=== PATIENT | male | born 1935 | race Caucasian/White ===

== ENCOUNTER 2021-10-16 10:06 | Emergency (ER) | payer MEDICARE, SELFPAY ==
[2021-10-16] VITALS (30 sets, daily range): BP systolic 124–154; BP diastolic 64–104; PULSE 76–87; RESP 8–36; TEMP 36.6; O2SAT 92–100
--- NOTE | ~2021-10-16 | CT_ITS ---
EXAMINATION: CT abdomen pelvis w con DATE: 10/16/2021 12:50 INDICATION: No bowel movements for 2 weeks. Abdomen pain. TECHNIQUE: Computed tomography (CT) of the abdomen and pelvis was performed with 75 cc Omnipaque 350 intravenous contrast. The dose-length product was 448.47 mGy-cm. Automated exposure control and itera tive reconstruction technique were employed. COMPARISON: None. FINDINGS: No there are interstitial changes peripherally in the lung bases, likely chronic. Heart siz e normal. There are small hiatal hernia. There are calcified granulomas of the spleen. There are chol ecystectomy clips. Fatty infiltration of the liver. The pancreas, adrenal glands and right kidney are unremarkable. There is a small subcentimeter hypodensity of the left kidney, most likely benign cyst s. There are nonobstructing left renal stones, largest measuring 3 mm. Bladder is unremarkable. There is a penile prosthesis with reservoir in the right inguinal region. Moderate colonic fecal loading. No evidence for bowel obstruction. Colonic diverticulosis without evidence for diverticulitis. Normal appendix. Enlarged prostate gland. There is moderate osteoarthritis of the hips. There is levoscolio sis. Moderate lumbar spondylosis. IMPRESSION: 1. No evidence for bowel obstruction. 2: Nonobstructing left nephrolithiasis. Reviewed, dictated and finalized at location B.
[2021-10-16 10:42] LABS: Basophils Percent Auto 0.3 % (0.2-1.2); Eosinophils Absolute Auto 0.1 K/mm3 (0-0.3); Eosinophils Percent Auto 1.4 % (0-4.4); Hematocrit 43.2 % (42.0-52.0); Hemoglobin 14.1 g/dL (14.0-18.0); Immature Granulocyte Absolute 0.07 K/mm3 (0.00-0.031); Immature Granulocyte Percent A 1.2 % (0-0.5); Lymphocytes Absolute Auto 1.06 K/mm3 (0.9-3.2); Lymphocytes Percent Auto 18.5 % (18.3-44.2); Mean Corpuscular HGB Conc 32.6 g/dl (32-36); Mean Corpuscular Hemoglobin 33.5 pg (26-34); Mean Corpuscular Volume 102.6 fl (80-100); Mean Platelet Volume 9.1 fl (7.4-10.4); Monocytes Absolute Auto 0.8 K/mm3 (0.1-0.6); Monocytes Percent Auto 14.6 % (2.6-8.5); Neutrophils Absolute Auto 3.7 K/mm3 (1.3-6.7); Platelet Count Result 210 k/mm3 (150-375); Red Blood Count 4.21 M/mm3 (4.6-6.20); Red Cell Distribution Width 13.9 % (11.5-14.5); White Blood Count 5.7 K/mm3 (4.5-10.0)
[2021-10-16 10:57] LABS: Alanine Aminotransferase 19 U/L (6-50); Alkaline Phosphatase 100 U/L (38-126); Anion Gap 8 mmol/L (8-16); Aspartate Amino Transferase 36 U/L (17-59); Bilirubin,Total 0.6 mg/dL (0.2-1.3); Blood Urea Nitrogen 20 mg/dL (9-20); Calcium 8.7 mg/dL (8.4-10.2); Carbon Dioxide 28 mmol/L (22-30); Chloride 106 mmol/L (98-107); Estimated CRCL calculation 43 ml/min; Estimated Glomerular Filt Rate 58; Glucose 78 mg/dL (65-110); Lipase 23 U/L (23-300); Potassium 4.3 mmol/L (3.4-5.0); Sodium 142 mmol/L (137-145)
[2021-10-16 12:33] LABS: Add Urine Microscopic? YES; Appearance Urine Clear (Clear); Bilirubin Urine 1+ (Negative); Blood Urine Negative (Negative); Color Urine Yellow (Yellow); Glucose Urine UA Negative (Negative); Ketones Urine 4+ mg/dL (Negative); Leukocyte Esterase Ur Negative LEU/UL (Negative); Nitrate Urine Negative (Negative); Protein Urine Negative (Negative); Specific Grav Ur >= 1.030 (1.001-1.035); Urobilinogen Urine 0.2 mg/dL (<2.0); pH Urine 5.5 (5.0-9.0)
[2021-10-16] MEDS: LACTATED RINGERS 1,000 ML 999 ML IV CONT (12:34)
[2021-10-16 12:38] LABS: Mucus Urine Few /lpf; RBC Urine 0-2 /hpf (0-2); WBC Urine 0-3 /hpf
--- NOTE | 2021-10-16 13:07 | ED.ABDPAIN ---
HPI - Abdominal Pain General Chief Complaint: Abdominal Pain Stated Complaint: abd pain Time Seen by Provider: 10/16/21 11:59 Source: patient and family Mode of arrival: ambulatory Limitations: no limitations History of Present Illness HPI narrative: This is an 85 year old male who presents for evaluation of possible bowel obstruction. Patient developed diarrhea 2 months and it lasted for 1 week. He has also been having intermittent diffuse abdominal discomfort for 2 weeks. He was evaluated by his doctor and started on antibiotics(cipro and flagyl) 10/12/2021. He reports he is concerned he may have an obstruction because he has not had bowel movement in 1 week. He denies nausea, vomiting or fever. He does have decreased appetite. Related Data Home Medications Medication Instructions Recorded Confirmed atorvastatin 20 mg DAILY 10/16/21 10/16/21 budesonide-formoterol [Symbicort] INHALATION 10/16/21 bupropion HCl 150 mg PO BID 10/16/21 clopidogrel 75 mg PO 10/16/21 docosahexaenoic acid-epa [Fish Oil] 1 cap DAILY 10/16/21 doxazosin 4 mg DAILY 10/16/21 gabapentin 300 mg DAILY 10/16/21 isosorbide mononitrate 30 mg PO DAILY 10/16/21 omeprazole 20 mg DAILY 10/16/21 Allergies Allergy/AdvReac Type Severity Reaction Status Date / Time No Known Allergies Allergy Mild Verified 10/16/21 12:13 Review of Systems Review of Systems: All systems reviewed & are unremarkable except as noted in HPI and below Constitutional: Constitutional: Denies chills and Denies fever(s) Cardiovascular: Cardiovascular: Denies chest pain Respiratory: Respiratory: Denies cough and Denies dyspnea Gastrointestinal: Gastrointestinal: Reports abdominal pain and Reports diarrhea Genitourinary: Genitourinary: Denies hematuria, Denies oliguria and Denies urinary frequency Musculoskeletal: Musculoskeletal: Denies back pain FORMERLY [facility], [facility]–1983 Past Medical History Medical History (Updated 10/16/21 @ 17:09 by Sadia Dale MD) Emphysema/COPD Sleep apnea Exam Const: General: no acute distress and alert Orientation/consciousness: patient oriented x3 Eyes: EOM: EOMs intact bilaterally Chest: Chest palpation & inspection: normal inspection of the chest Resp: Effort & Inspection: normal respiratory effort and no retractions Auscultation: clear to auscultation bilaterally Cardio: Rate: regular rate Rhythm: regular rhythm Heart sounds: no murmurs GI: GI Palp: Yes Soft to palpation, Yes Tenderness to palpation present (GI) (Diffuse), No Guarding due to palpation present (GI) and No Rigid due to palpation Auscultation: normal bowel sounds Skin: General skin exam: normal color Rashes: no rashes Neuro: General: patient oriented x3, moves all extremities and CN's II-XI intact bilaterally Extrem: General: normal to inspection Psych: Mental Status: mental status grossly normal Affect: normal affect Course Reevaluation(s) Reevaluation #1: I Discussed with patient that CT is negative for obstruction. Patient is likely not having bowel movement because he is not eat or drinking. He complained of substernal chest pain after CT with IV contrast. His pain last several minutes but it has resolved. He did not have rash, itching or sob. EKG show RBBB with some ST depression with no EKG to compare. He reports having normal stress test 3 months ago. He has had negative troponin. He is eager to be sent home. Date: 10/16/21 Time: 17:04 Vital Signs Vital signs: Vital Signs Temperature 97.8 F 10/16/21 10:14 Pulse Rate 77 10/16/21 10:14 Respiratory Rate 17 10/16/21 10:14 Blood Pressure 124/89 10/16/21 10:14 Pulse Oximetry 98 10/16/21 10:14 Temperature 97.8 F 10/16/21 10:14 Pulse Rate 85 10/16/21 16:16 Respiratory Rate 16 10/16/21 16:16 Blood Pressure 136/104 H 10/16/21 16:16 Pulse Oximetry 97 10/16/21 16:16 MDM - Abdominal Pain Lab Data Attestation: I reviewed the patient's lab results. Result d
--- NOTE | 2021-10-16 13:25 | ECG_ITS ---
Measurements Intervals [place] Rate: 80 P: -5 OK: 220 QRS: 58 QRSD: 185 T: -33 QT: 440 QTc: 509 Interpretive Statements SINUS RHYTHM WITH FIRST DEGREE AV BLOCK RIGHT BUNDLE BRANCH BLOCK ST-T WAVE ABNORMALITY IN INFERIOR LEADS- CONSIDER ISCHEMIA BASELINE ARTIFACT- II, AVR ABNORMAL ECG Electronically Signed On 10-16-2021 14:49:50 CDT by Gerald Mo D.O.
--- NOTE | 2021-10-16 13:31 | PC.NURSE ---
Pt c/o chest pain 10/06. States he started having cp after his ct scan. ERP aware.
[2021-10-16 14:07] LABS: Troponin I < 0.012 ng/mL (0.000-0.034)
--- NOTE | 2021-10-16 14:54 | PC.NURSE ---
Denies any further chest pain. Awaiting dispo.
[2021-10-16 16:52] LABS: Troponin I < 0.012 ng/mL (0.000-0.034)
== END 2021-10-16 17:33 | disposition home or self-care (01) ==
PROVIDERS: Emergency Medicine; Emergency Provider General Practice; PCP Internal Medicine
DX: K59.00 Constipation, unspecified (principal); N20.0 Calculus of kidney; R07.89 Other chest pain; J43.9 Emphysema, unspecified; G47.30 Sleep apnea, unspecified; I44.0 Atrioventricular block, first degree; I45.10 Unspecified right bundle-branch block; R94.31 Abnormal electrocardiogram [ECG] [EKG]
CPT/HCPCS: 36415; 74177; 80053; 81001; 83690; 84484; 85025; 93005; 96360; 99284; J7120; Q9967

== ENCOUNTER 2023-05-09 15:14 | Observation (INO) | payer MEDICARE, SELFPAY ==
[2023-05-09] VITALS (12 sets, daily range): BP systolic 101–137; BP diastolic 61–110; PULSE 70–90; RESP 14–19; TEMP 36.2–36.5; O2SAT 95–99
--- NOTE | ~2023-05-09 | CT_ITS ---
EXAMINATION: CT abdomen pelvis w con DATE: 05/09/2023 18:43 INDICATION: Gastrointestinal bleed TECHNIQUE: Computed tomography (CT) of the abdomen and pelvis was performed with 200 mL Omnipaque-350 intravenous contrast. Automated exposure control and iterative reconstruction technique were employe d. The dose-length product was 1434.93 mGy-cm. COMPARISON: 10/16/2021 FINDINGS: Emphysema with stable appearance of chronic peripheral predominant reticulonodular opacities at the b ilateral lower lungs which could be related to chronic interstitial lung or chronic infection. No ple ural effusion. Heart size is normal. Atherosclerotic coronary artery calcifications. Aortic valve diya cifications. No pericardial effusion. Small sliding-type hiatal hernia. Cholecystectomy clips in the gallbladder fossa and dropped clip along the posterior right hepatic lob e. Liver, pancreas, bilateral adrenal glands and right kidney are normal. Couple nonenhancing left re nal cysts the largest measuring 1.2 cm. Nonobstructing 3-4 mm stone at a lower pole calyx of the left kidney. Multiple splenic calcifications consistent with old granulomatous disease. There is moderate colonic diverticulosis with a sigmoid predominance. There is no adjacent inflammatory change to sugg est diverticulitis. Small bowel and appendix are normal. Penile prosthesis with reservoir in the ante rior right hemipelvis. Wall trabeculation of the bladder wall with tiny posterior bladder diverticulu m likely related to chronic outlet obstruction from the enlarged prostate. There is calcified atheros clerosis of the aorta and many of the other arteries. No free intraperitoneal gas or fluid. No pathol ogically enlarged abdominal or pelvic lymphadenopathy. IMPRESSION: 1. No acute intra-abdominal/pelvic process. 2. Nonobstructing left nephrolithiasis. 3. Diverticulosis. 4. Trabecular bladder wall with tiny bladder diverticulum likely related to chronic outlet obstructio n from the enlarged prostate. 5. Emphysema with chronic peripheral reticular nodular opacities in the bilateral lower lungs which c ould represent chronic interstitial lung disease or sequela of chronic infection. 6. Small sliding-type hiatal hernia. Reviewed, dictated and finalized at location A. [employer] IMPRESSION: 1. No acute intra-abdominal/pelvic process. 2. Nonobstructing left nephrolithiasis. 3. Diverticulosis. 4. Trabecular bladder wall with tiny bladder diverticulum likely related to chr onic outlet obstruction from the enlarged prostate. 5. Emphysema with chronic peripheral reticular nodular opacities in the bilater al lower lungs which could represent chronic interstitial lung disease or seque la of chronic infection. 6. Small sliding-type hiatal hernia.
[2023-05-09 16:55] LABS: Basophils Percent Auto 0.5 % (0.2-1.2); Eosinophils Absolute Auto 0.1 K/mm3 (0-0.3); Eosinophils Percent Auto 1.1 % (0-4.4); Hematocrit 41.2 % (42.0-52.0); Hemoglobin 13.4 g/dL (14.0-18.0); Immature Granulocyte Absolute 0.03 K/mm3 (0.00-0.031); Immature Granulocyte Percent A 0.4 % (0-0.5); Lymphocytes Absolute Auto 1.82 K/mm3 (0.9-3.2); Lymphocytes Percent Auto 21.8 % (18.3-44.2); Mean Corpuscular HGB Conc 32.5 g/dl (32-36); Mean Corpuscular Hemoglobin 34.2 pg (26-34); Mean Corpuscular Volume 105.1 fl (80-100); Mean Platelet Volume 9.4 fl (7.4-10.4); Monocytes Absolute Auto 0.9 K/mm3 (0.1-0.6); Monocytes Percent Auto 11.2 % (2.6-8.5); Neutrophils Absolute Auto 5.4 K/mm3 (1.3-6.7); Platelet Count Result 232 k/mm3 (150-375); Red Blood Count 3.92 M/mm3 (4.6-6.20); Red Cell Distribution Width 13.2 % (11.5-14.5); White Blood Count 8.3 K/mm3 (4.5-10.0)
[2023-05-09 17:02] LABS: Alanine Aminotransferase 16 U/L (6-50); Albumin Level 4.2 g/dL (3.5-5.1); Alkaline Phosphatase 98 U/L (38-126); Anion Gap 7 mmol/L (8-16); Aspartate Amino Transferase 24 U/L (17-59); Bilirubin,Total 0.9 mg/dL (0.2-1.3); Blood Urea Nitrogen 29 mg/dL (9-20); Carbon Dioxide 28 mmol/L (22-30); Chloride 104 mmol/L (98-107); Estimated Glomerular Filt Rate 57; Glucose 101 mg/dL (65-110); Sodium 139 mmol/L (137-145)
[2023-05-09 17:03] LABS: Prothrombin Time 13.8 Seconds (11.1-14.7)
[2023-05-09 17:04] LABS: Partial Thromboplastin Time 34.4 SECONDS (22.3-36.8)
[2023-05-09 17:19] LABS: Macrocytosis 1+ (NORMAL); Platelet Estimate Adequate (Adequate); Schistocytes None Seen (NORMAL)
--- NOTE | 2023-05-09 17:25 | ED.GIBLEED ---
HPI - GI Bleed General Chief complaint: GI Bleed Stated complaint: rectal bleeding Time Seen by Provider: 05/09/23 17:13 History of Present Illness HPI Narrative: patient is an 87-year-old male here with a GI bleed. He states that around 05/01 he began having some constipation. He notes that this is a common recurrence for him. He presented to an outside emergency department on 05/03, received an enema at that time was diagnosed with constipation. The next day he began having large amounts of bloody bowel movement. They noted some maroon in color. He has had multiple episodes each day. On the he went back to this outside emergency department where he had a CT scan performed and was diagnosed with colitis. He was discharged home at that time. He has had continued bloody bowel movements and today contact his primary care doctor who recommended he come into the emergency department for likely admission and possible need for blood transfusion. Patient is not currently on blood thinners, was previously on Plavix for cardiac stents. Last colonoscopy was a few years ago, was reportedly fairly normal. He has had a prior endoscopy in the past which he also believes was normal. He has recurrent history of diverticulitis, last occurred 3-4 years ago. He notes that a lot of this pain and bleeding is similar to his prior bouts of diverticulitis. His abdominal pain is located in his lower abdomen, cramping, sharp, severe, does not change with any of his bowel movements. His is thought he was febrile at home, no temperature was ever taken. he notes he has a chronic cough which is grossly unchanged from normal. Related Data Home Medications Medication Instructions Recorded Confirmed atorvastatin 20 mg tablet 20 mg DAILY 10/16/21 10/16/21 budesonide-formoterol HFA 160 inhalation 10/16/21 mcg-4.5 mcg/actuation aerosol inhaler (Symbicort) bupropion HCl 150 mg tablet,12 hr 150 mg PO BID 10/16/21 sustained-release clopidogrel 75 mg tablet 75 mg PO 10/16/21 docosahexaenoic acid (dha)-epa 120 1 cap DAILY 10/16/21 mg-180 mg capsule (Fish Oil) doxazosin 4 mg tablet 4 mg DAILY 10/16/21 gabapentin 300 mg capsule 300 mg DAILY 10/16/21 isosorbide mononitrate 30 mg 30 mg PO DAILY 10/16/21 tablet,extended release 24 hr omeprazole 20 mg capsule,delayed 20 mg DAILY 10/16/21 release Allergies Allergy/AdvReac Type Severity Reaction Status Date / Time No Known Allergies Allergy Mild Verified 05/09/23 16:00 Review of Systems Review of Systems: All systems reviewed & are unremarkable except as noted in HPI and below PMFSH Past Medical History Medical History (Updated 05/09/23 @ 19:33 by Savi Lucas MD) Emphysema/COPD Sleep apnea Exam Narrative: GENERAL: Well-appearing, well-nourished, and in no acute distress. HEAD: Normocephalic, atraumatic. EYES: PERRLA and EOMI. ENT: Nares clear. Mucous membranes moist. NECK: Supple. CHEST: Clear to auscultation. No respiratory distress. HEART: Regular rate and rhythm. Normal peripheral pulses. ABDOMEN: Soft, tenderness in the suprapubic and left lower quadrant, no rebound or guarding, nondistended. EXTREMITIES: Normal range of motion. No edema. SKIN: Warm, dry, no rash. NEURO: No focal deficits. Alert and oriented x3. PSYCH: Normal mood and affect. Course Course Emergency Course: Chart review performed. Patient here with rectal bleeding. She has reportedly been to [facility] twice without being admitted for the same. They were sent in by PCP for likely transfusion and admission. Triage orders reviewed. No leukocytosis, Hgb stable at 13.4. Electrolytes within normal limits. Creatinine 1.2, unchanged from 2021. He has one prior visit on our system for atypical chest pain in 2021. He appeared to be on plavix at that time. Patient seen evaluated, nontoxic appearing. He has already used the commode here and it does appear to be grossly bloody, melanotic in col
[2023-05-09] MEDS: PANTOPRAZOLE SODIUM IV 40 MG VIAL 80 MG IV PUSH (19:05)
[2023-05-09] MEDS: SODIUM CHLORIDE 0.9% IV 500 ML 999 ML IV CONT (19:05)
[2023-05-09 19:28] LABS: Lipase 29 U/L (23-300)
--- NOTE | 2023-05-09 19:40 | PM.IMHP ---
H&P: HPI History of Present Illness Date/Time: 05/09/23 19:40 Chief Complaint: Rectal bleed Narrative: This is an 87-year-old male with past medical history significant for COPD/emphysema, hypertension, sleep apnea. Patient presents to the emergency room after having 4-5 days of bleeding per rectum on having maroon colored stools. Patient denies any hematemesis, coffee-ground emesis. Denies any weight loss denies any change in bowel habits has been his usual state has up to this moment. CT of abdomen and pelvis was reported as: EXAMINATION: CT abdomen pelvis w con DATE: 05/09/2023 18:43 INDICATION: Gastrointestinal bleed TECHNIQUE: Computed tomography (CT) of the abdomen and pelvis was performed with 200 mL Omnipaque-350 intravenous contrast. Automated exposure control and iterative reconstruction technique were employed. The dose-length product was 1434.93 mGy-cm. COMPARISON: 10/16/2021 FINDINGS: Emphysema with stable appearance of chronic peripheral predominant reticulonodular opacities at the bilateral lower lungs which could be related to chronic interstitial lung or chronic infection. No pleural effusion. Heart size is normal. Atherosclerotic coronary artery calcifications. Aortic valve calcifications. No pericardial effusion. Small sliding-type hiatal hernia. Cholecystectomy clips in the gallbladder fossa and dropped clip along the posterior right hepatic lobe. Liver, pancreas, bilateral adrenal glands and right kidney are normal. Couple nonenhancing left renal cysts the largest measuring 1.2 cm. Nonobstructing 3-4 mm stone at a lower pole calyx of the left kidney. Multiple splenic calcifications consistent with old granulomatous disease. There is moderate colonic diverticulosis with a sigmoid predominance. There is no adjacent inflammatory change to suggest diverticulitis. Small bowel and appendix are normal. Penile prosthesis with reservoir in the anterior right hemipelvis. Wall trabeculation of the bladder wall with tiny posterior bladder diverticulum likely related to chronic outlet obstruction from the enlarged prostate. There is calcified atherosclerosis of the aorta and many of the other arteries. No free intraperitoneal gas or fluid. No pathologically enlarged abdominal or pelvic lymphadenopathy. IMPRESSION: 1. No acute intra-abdominal/pelvic process. 2. Nonobstructing left nephrolithiasis. 3. Diverticulosis. 4. Trabecular bladder wall with tiny bladder diverticulum likely related to chronic outlet obstruction from the enlarged prostate. 5. Emphysema with chronic peripheral reticular nodular opacities in the bilateral lower lungs which could represent chronic interstitial lung disease or sequela of chronic infection. 6. Small sliding-type hiatal hernia. Review of Systems Review of Systems: melena, maroon colored stools Constitutional: Constitutional: Denies chills, Denies fatigue, Denies fever(s), Denies malaise, Denies night sweats, Denies poor appetite, Denies weakness and Denies weight loss Eyes: Eyes: Denies change in vision ENT: Denies dysphagia, Denies vertigo, Denies dizziness and Denies odynophagia Cardiovascular: Cardiovascular: Denies chest pain, Denies radiating jaw, neck or arm pain and Denies palpitations Respiratory: Respiratory: Denies chest congestion, Denies cough and Denies dyspnea Gastrointestinal: Gastrointestinal: Denies abdominal pain, Denies coffee ground emesis, Denies dyspepsia, Denies heartburn, Denies diarrhea, Denies nausea, Denies vomiting, Denies hematemesis and Denies other (maroon colored stools) Genitourinary: Genitourinary: Denies dysuria Musculoskeletal: Musculoskeletal: Denies arthralgias and Denies limited range of motion Integumentary/Breasts: Skin/Breast: Denies rash Neurologic: Denies focal weakness and Denies Sensory deficit (Neuro) Psychiatric: Psychiatric: Reports no additional psychiatric complaints and Reports as per HPI Endocrine: Endocrine: Denies col
[2023-05-09 19:41] LABS: Troponin I < 0.012 ng/mL (0.000-0.034)
--- NOTE | 2023-05-09 21:38 | ADMGEN ---
This patient, Rogerio Vivar, was admitted to [facility] Surg Room 324-02. Patient/family oriented to hospital policies and general routines including ID bracelet, bed and alarms, visiting hours, pain management, procedures, bathroom and other care routines, personal items, smoking policy, room service/diet, and visiting hours. Information on how to activate the Rapid Response Team has been discussed. Patient/Family are encouraged to report perceived risks to care and to ask questions if they do not understand what they are told or what they should do.
[2023-05-10] VITALS: PULSE 86
[2023-05-10 00:50] LABS: Hematocrit 40.2 % (42.0-52.0); Hemoglobin 12.5 g/dL (14.0-18.0)
[2023-05-10 04:00] VITALS: PULSE 86
[2023-05-10 06:00] VITALS: BP 137/52; PULSE 77; RESP 18; TEMP 36; O2SAT 95
[2023-05-10] MEDS: FLUTICASONE/SALMETEROL 115-21 MCG INHALER 1 PUFF 2 PUFF INHALATION (08:31)
[2023-05-10 08:32] VITALS: O2SAT 95
[2023-05-10] MEDS: TIMOLOL MALEATE 0.5% OP SOLN 5 ML BOTTLE 1 DROP RIGHT EYE ×2 (09:13→18:24)
[2023-05-10] MEDS: BRIMONIDINE TARTRATE 0.2% OP SOLN 5 ML BTL 1 DROP RIGHT EYE ×2 (09:13→18:24)
[2023-05-10] MEDS: GABAPENTIN 300 MG CAPSULE 600 MG BY MOUTH (09:14)
[2023-05-10] MEDS: ATORVASTATIN 20 MG TABLET BY MOUTH (09:14)
[2023-05-10] MEDS: buPROPion HCL SR (12 HR) 150 MG TAB PO ×2 (09:14→21:30)
[2023-05-10] MEDS: DOXAZOSIN MESYLATE 4 MG TABLET BY MOUTH (09:14)
[2023-05-10] MEDS: PANTOPRAZOLE SODIUM IV 40 MG VIAL IV PUSH ×2 (09:14→21:30)
[2023-05-10 11:00] VITALS: BMI 24.8
[2023-05-10 14:00] VITALS: BP 117/69; PULSE 76; RESP 16; TEMP 36.7; O2SAT 97
--- NOTE | 2023-05-10 15:51 | PM.IMPN ---
Progress Note: A&P Assessment and Plan (1) Gastrointestinal hemorrhage with melena: Code(s): K92.1 - Melena Status: Acute Assessment and Plan: CTA negative for acute process NPO IV fluids Repeat H&H stable this am, transfuse if needed GI consulted and awaiting eval (2) Emphysema/COPD: Code(s): J43.9 - Emphysema, unspecified Status: Acute Assessment and Plan: Stable (3) Sleep apnea: Code(s): G47.30 - Sleep apnea, unspecified Status: Acute Assessment and Plan: CPAP at nighttime Subjective Date/time seen: 05/10/23 15:51 Interval history: Patient is in no acute distress this morning. He has a history of having blood in his stool before. His most recent stools were tarry black with some mucus. He denies history of known UC or Crohns or RA in family. His normal is to be constipated. He cannot tell me when his most recent colonoscopy was, but believes it has been greater than 5 years. He has previously had to have polyps removed. He knows of one active hemorrhoid that has been giving him trouble. GI consulted. Will keep NPO, IVF and monitor H&H. Stable this morning. Awaiting further eval and recs from GI. Review of Systems Review of Systems: All systems reviewed & are unremarkable except as noted in HPI and below Exam Narrative: GENERAL: Well-appearing, well-nourished, and in no acute distress. HEAD: Normocephalic, atraumatic. EYES: PERRLA and EOMI. ENT: Nares clear. Mucous membranes moist. NECK: Supple. CHEST: Clear to auscultation. No respiratory distress. HEART: RRR. Normal peripheral pulses. ABDOMEN: Soft, tenderness in the suprapubic and left lower quadrant, no rebound or guarding, nondistended. EXTREMITIES: Normal range of motion. No edema. SKIN: Warm, dry, no rash. NEURO: No focal deficits. Alert and oriented x3. PSYCH: Normal mood and affect. Objective Data Vital Signs Vital Signs: Vital Signs - 24 hr 05/09/23 15:59 05/09/23 19:01 05/09/23 19:31 Temperature 97.7 F Pulse Rate 90 80 Respiratory Rate 18 15 Blood Pressure 127/110 H 129/71 Pulse Oximetry 98 98 97 Oxygen Delivery 05/09/23 19:32 05/09/23 19:45 05/09/23 19:46 Temperature Pulse Rate 76 75 74 Respiratory Rate 16 18 15 Blood Pressure 120/72 Pulse Oximetry 97 97 97 Oxygen Delivery 05/09/23 19:47 05/09/23 20:04 05/09/23 20:15 Temperature Pulse Rate 76 71 79 Respiratory Rate 15 14 18 Blood Pressure Pulse Oximetry 97 99 95 Oxygen Delivery 05/09/23 20:16 05/09/23 20:50 05/09/23 21:10 Temperature 97.1 F L Pulse Rate 70 75 78 Respiratory Rate 16 19 18 Blood Pressure 101/61 130/78 137/76 Pulse Oximetry 97 98 97 Oxygen Delivery 05/10/23 00:00 05/10/23 04:00 05/10/23 06:00 Temperature 96.8 F L Pulse Rate 86 86 77 Respiratory Rate 18 Blood Pressure 137/52 L Pulse Oximetry 95 Oxygen Delivery 05/10/23 08:32 05/10/23 14:00 Temperature 98.1 F Pulse Rate 76 Respiratory Rate 16 Blood Pressure 117/69 Pulse Oximetry 95 97 Oxygen Delivery Room Air Intake/Output Intake/Output: Intake & Output 05/07/23 05/08/23 05/09/23 05/10/23 23:59 23:59 23:59 23:59 Intake Total 500 Balance 500 Meds/Results Medications: Active Medications Generic Name Dose Route Start Last Admin Trade Name Freq PRN Reason Stop Dose Admin Albuterol 2 puff 05/10/23 00:26 Albuterol Sulfate (*Sp) Aerosol 1 Puff INHALATION PRN PRN Wheezing Atorvastatin Calcium 20 mg 05/10/23 09:00 05/10/23 09:14 Atorvastatin 20 Mg Tablet BY MOUTH 20 mg DAILY JAMISON Administration Brimonidine Tartrate 1 drop 05/10/23 09:00 05/10/23 09:13 Brimonidine Tartrate 0.2% Op Soln 5 Ml Btl RIGHT EYE 1 drop BID JAMISON Administration Bupropion HCl 150 mg 05/10/23 09:00 05/10/23 09:14 Bupropion Hcl Sr (12 Hr) 150 Mg Tab PO 150 mg Q12HR JAMISON Administration Doxazosin Mesylate 4 mg 05/10
--- NOTE | 2023-05-10 16:08 | WPDGICN ---
Assessment and Plan Assessment and plan (1) Rectal bleeding: Code(s): K62.5 - Hemorrhage of anus and rectum Status: Acute Assessment and Plan: patient thinks that is slowing down and feeling better probably diverticular source he is agreeable for colonoscopy, will set up for tomorrow (2) Colon, diverticulosis: Code(s): K57.30 - Diverticulosis of large intestine without perforation or abscess without bleeding Status: Acute (3) Acute blood loss anemia: Code(s): D62 - Acute posthemorrhagic anemia Status: Acute Assessment and Plan: monitor for more signs of bleeding (4) Emphysema/COPD: Code(s): J43.9 - Emphysema, unspecified Status: Acute (5) Sleep apnea: Code(s): G47.30 - Sleep apnea, unspecified Status: Acute GI Consult Note Consult date/time: 05/10/23 16:08 Reason for consult: rectal bleeding HPI: Rogerio Vivar is a 87 year old male with past medical history significant for COPD/emphysema, hypertension, sleep apnea.? Here with new onset of 4-5 days of bleeding per rectum on having maroon colored stools.? Patient denies any hematemesis, coffee-ground emesis.?His last colonoscopy about [address] of abdomen and pelvis showed diverticulosis. Hgb from 14 to 12.5 Review of Systems Review of Systems: melena, maroon colored stools Constitutional: Constitutional: Denies chills, Denies fatigue, Denies fever(s), Denies malaise, Denies night sweats, Denies poor appetite, Denies weakness and Denies weight loss Eyes: Eyes: Denies change in vision ENT: Denies dysphagia, Denies vertigo, Denies dizziness and Denies odynophagia Cardiovascular: Cardiovascular: Denies chest pain, Denies radiating jaw, neck or arm pain and Denies palpitations Respiratory: Respiratory: Denies chest congestion, Denies cough and Denies dyspnea Gastrointestinal: Gastrointestinal: Denies abdominal pain, Denies coffee ground emesis, Denies dyspepsia, Denies heartburn, Denies diarrhea, Denies nausea, Denies vomiting, Denies hematemesis and Denies other (maroon colored stools) Genitourinary: Genitourinary: Denies dysuria Musculoskeletal: Musculoskeletal: Denies arthralgias and Denies limited range of motion Integumentary/Breasts: Skin/Breast: Denies rash Neurologic: Denies focal weakness and Denies Sensory deficit (Neuro) Psychiatric: Psychiatric: Reports no additional psychiatric complaints and Reports as per HPI Endocrine: Endocrine: Denies cold intolerance, Denies fatigue, Denies flushing, Denies heat intolerance, Denies polyphagia, Denies polydipsia and Denies palpitations Hematologic/Lymphatic: Hematologic/Lymphatic: Reports no additional hematologic/lymphatic complaints and Reports as per HPI Allergic/Immunologic: Allergic/Immunologic: Reports no additional allergic/immunologic complaints and Reports as per HPI PMFSH Past Medical History Medical History (Updated 05/10/23 @ 16:10 by Robert Marte MD) Acute blood loss anemia Colon, diverticulosis Emphysema/COPD Rectal bleeding Sleep apnea Social History Social History Smoking status: Former smoker Alcohol intake: never Substance use: never Lack of Transportation: No Lack of Food: Never True Current Housing: I Have Housing Concerned About Future Housing: No Difficulty Paying Gas/Electric Bills: No Difficulty Paying for Meds: No Currently Unemployed: No Education: High School Diploma/GED Difficulty w/ Childcare or Family Care: No Spiritual care concerns: No Meds Home Medications and Allergies Home Medications Medication Instructions Recorded Confirmed Type atorvastatin 20 mg tablet 20 mg DAILY 10/16/21 05/09/23 History budesonide-formoterol HFA 160 2 puff inhalation BID 10/16/21 05/09/23 History mcg-4.5 mcg/actuation aerosol inhaler (Symbicort) bupropion HCl 150 mg tablet,12 hr 150 mg PO BID 10/16/21 05/09/23 History sustained-release
[2023-05-10] MEDS: BISACODYL 5 MG TABLET EC 20 MG PO (18:23)
[2023-05-10] MEDS: polyethylene glycoL 3350 238 GM BOTTLE PO (18:23)
[2023-05-10] MEDS: LATANOPROST 0.005% OP SOLN 2.5 ML BTL 1 DROP RIGHT EYE (21:30)
[2023-05-10 22:00] VITALS: BP 128/46; PULSE 74; RESP 14; TEMP 36.1; O2SAT 94
[2023-05-11] VITALS (10 sets, daily range): BP systolic 98–131; BP diastolic 58–87; PULSE 66–77; RESP 16–23; TEMP 36–36.4; O2SAT 94–100
--- NOTE | 2023-05-11 00:26 | PCRCNOTE ---
Window of time for administration has passed. See next scheduled administration.
[2023-05-11] MEDS: MAGNESIUM CITRATE 300 ML BTL PO (02:25)
[2023-05-11 07:11] LABS: Basophils Percent Auto 0.4 % (0.2-1.2); Eosinophils Absolute Auto 0.1 K/mm3 (0-0.3); Eosinophils Percent Auto 2.4 % (0-4.4); Hematocrit 36.8 % (42.0-52.0); Hemoglobin 11.7 g/dL (14.0-18.0); Immature Granulocyte Absolute 0.01 K/mm3 (0.00-0.031); Immature Granulocyte Percent A 0.2 % (0-0.5); Lymphocytes Absolute Auto 1.31 K/mm3 (0.9-3.2); Mean Corpuscular HGB Conc 31.8 g/dl (32-36); Mean Corpuscular Hemoglobin 33.5 pg (26-34); Mean Corpuscular Volume 105.4 fl (80-100); Mean Platelet Volume 9.3 fl (7.4-10.4); Monocytes Absolute Auto 0.8 K/mm3 (0.1-0.6); Monocytes Percent Auto 15.2 % (2.6-8.5); Neutrophils Absolute Auto 3.2 K/mm3 (1.3-6.7); Neutrophils Percent Auto 57.8 % (45.5-73.1); Platelet Count Result 190 k/mm3 (150-375); Red Blood Count 3.49 M/mm3 (4.6-6.20); Red Cell Distribution Width 12.8 % (11.5-14.5); White Blood Count 5.5 K/mm3 (4.5-10.0)
[2023-05-11 07:21] LABS: Anion Gap 9 mmol/L (8-16); Blood Urea Nitrogen 27 mg/dL (9-20); Calcium 8.7 mg/dL (8.4-10.2); Carbon Dioxide 25 mmol/L (22-30); Chloride 105 mmol/L (98-107); Estimated CRCL calculation 41 ml/min; Estimated Glomerular Filt Rate 57; Glucose 111 mg/dL (65-110); Potassium 3.4 mmol/L (3.4-5.0); Sodium 139 mmol/L (137-145)
[2023-05-11] MEDS: PANTOPRAZOLE SODIUM IV 40 MG VIAL IV PUSH ×2 (07:50→20:29)
[2023-05-11] MEDS: BRIMONIDINE TARTRATE 0.2% OP SOLN 5 ML BTL 1 DROP RIGHT EYE ×2 (07:51→16:24)
[2023-05-11] MEDS: TIMOLOL MALEATE 0.5% OP SOLN 5 ML BOTTLE 1 DROP RIGHT EYE ×2 (07:51→16:24)
[2023-05-11] MEDS: FLUTICASONE/SALMETEROL 115-21 MCG INHALER 1 PUFF 2 PUFF INHALATION (08:08)
[2023-05-11 08:31] LABS: Platelet Estimate Adequate (Adequate)
[2023-05-11 08:32] LABS: Macrocytosis 1+ (NORMAL); Schistocytes None Seen (NORMAL)
--- NOTE | 2023-05-11 11:06 | PM.IMPN ---
Progress Note: A&P Assessment and Plan (1) Gastrointestinal hemorrhage with melena: Code(s): K92.1 - Melena Status: Acute Assessment and Plan: 05/10/23: CTA negative for acute process NPO IV fluids Repeat H&H stable this am, transfuse if needed GI consulted and awaiting eval 05/11/23: GI following Patient had colonoscopy today which showed clot noted in the transverse colon due to a diverticular bleed there was also multiple diverticuli seen during this study Patient can resume a low-fiber diet Will repeat a.m. labs morning if those are stable he may be able to go home. (2) Emphysema/COPD: Code(s): J43.9 - Emphysema, unspecified Status: Acute Assessment and Plan: 05/10/23: Stable 05/11/23: Patient is stable (3) Sleep apnea: Code(s): G47.30 - Sleep apnea, unspecified Status: Acute Assessment and Plan: 05/10/23: CPAP at nighttime 05/11/23: No change in current treatment plan Time Spent With Patient Time with patient: Greater than 35 minutes Subjective Date/time seen: 05/11/23 11:06 Interval history: This is an 87 year old male who presented to the hospital on 05/09/23 with complaint of GI bleeding per rectum for 4-5 days. He reported having maroon stools. Workup in hospital included a CT of the abdomen/pelvis which revealed diverticulosis without perforation, nonobstructing left nephrolithiasis, small sliding hiatal hernia, emphysema with chronic peripheral reticular nodular opacities in the bilateral lower lungs, trabecular bladder wall with tiny bladder diverticulum likely related to chronic outlet obstruction from the enlarged prostate, no acute intra-abdominopelvic process. H/H was 13.4/41.2 on admission. GI was consulted. On examination today patient is alert oriented x3, lying in the bed. is at the bedside. Patient denies any fever, chills, nausea, diarrhea, abdominal pain, chest pain, shortness for breath. Labs today reveal H/H 11.7/36.8, BUN elevated at 27. All other labs were unremarkable. Plan had colonoscopy with GI today and found clots noted in transverse colon due to diverticular bleed. No intervention was needed at this time. He can resume a low fiber diet. Review of Systems Review of Systems: All systems reviewed & are unremarkable except as noted in HPI and below Constitutional: Constitutional: Reports as per HPI and Reports no additional constitutional complaints Eyes: Eyes: Reports as per HPI and Reports no additional eye complaints ENT: Reports system reviewed and no additional complaints, except as documented and Reports as per HPI Cardiovascular: Cardiovascular: Reports as per HPI and Reports no additional cardiovascular complaints Respiratory: Respiratory: Reports as per HPI and Reports no additional respiratory complaints Gastrointestinal: Gastrointestinal: Reports as per HPI and Reports no additional gastrointestinal complaints Genitourinary: Genitourinary: Reports no additional male genitourinary complaints and Reports as per HPI Musculoskeletal: Musculoskeletal: Reports no additional musculoskeletal complaints and Reports as per HPI Integumentary/Breasts: Skin/Breast: Reports system reviewed and no additional complaints, except as docu and Reports as per HPI Neurologic: Reports system reviewed and no additional complaints, except as documented and Reports as per HPI Psychiatric: Psychiatric: Reports no additional psychiatric complaints and Reports as per HPI Exam Narrative: General: In no acute distress, well nourished Head: atraumatic, no encephalopathy Eyes: EOMI, PERRLA, sclera clear ENT: moist mucous membranes, nasal passages clear Neck: supple, no JVD, no adenopathy, trachea midline Cardiac: Normal S1 and S2. No murmur, gallops or friction rubs, peripheral pulses intact. Respiratory: Lungs clear to auscultation, no adventitious lung sounds Gastrointestinal: soft, non-distended, non-tender, normoac
--- NOTE | 2023-05-11 13:19 | WPDANESEPPF ---
Anes - Initial Pre Proc Eval Procedure: Operation Date: 05/11/23 14:30 Proposed Procedures p Colonoscopy - Robert Marte MD Date/Time: 05/11/23 13:19 Surgeon: Jacquelyn Sosa MD Pre Op Diagnosis: GI Bleed Patient Data Age: 87 Gender: M Height: 1.8 m Weight: 80.8 kg Last Vital Signs Temp 97.1 F L 05/11/23 06:00 Pulse 77 05/11/23 06:00 Resp 16 05/11/23 06:00 BP 98/65 L 05/11/23 06:00 Pulse Ox 96 05/11/23 08:09 O2 Del Method Room Air 05/11/23 08:09 Allergies Allergy/AdvReac Type Severity Reaction Status Date / Time No Known Allergies Allergy Mild Verified 05/09/23 16:00 Home Medications Medication Instructions Recorded Confirmed Type atorvastatin 20 mg tablet 20 mg DAILY 10/16/21 05/09/23 History budesonide-formoterol HFA 160 2 puff inhalation BID 10/16/21 05/09/23 History mcg-4.5 mcg/actuation aerosol inhaler (Symbicort) bupropion HCl 150 mg tablet,12 hr 150 mg PO BID 10/16/21 05/09/23 History sustained-release docosahexaenoic acid (dha)-epa 120 1 cap DAILY 10/16/21 05/09/23 History mg-180 mg capsule (Fish Oil) doxazosin 4 mg tablet 4 mg DAILY 10/16/21 05/09/23 History gabapentin 300 mg capsule 600 mg DAILY 10/16/21 05/09/23 History isosorbide mononitrate 30 mg 30 mg PO DAILY 10/16/21 05/09/23 History tablet,extended release 24 hr omeprazole 20 mg capsule,delayed 20 mg DAILY 10/16/21 05/09/23 History release Aspir-81 81 mg PO DAILY 05/09/23 05/09/23 History albuterol sulfate 90 mcg/actuation 2 puff inhalation PRN PRN Wheezing 05/09/23 05/09/23 History aerosol inhaler brimonidine 0.2 %-timolol 0.5 % 1 drp RIGHT EYE BID 05/09/23 05/09/23 History eye drops (Combigan) latanoprost 0.005 % eye drops 1 drp RIGHT EYE HS 05/09/23 05/09/23 History Laboratory Tests 05/11/23 06:51 WBC 5.5 K/mm3 (4.5-10.0) RBC 3.49 L M/mm3 (4.6-6.20) Hgb 11.7 L g/dL (14.0-18.0) Hct 36.8 L % (42.0-52.0) MCV 105.4 H fl (80-100) MCH 33.5 pg (26-34) MCHC 31.8 L g/dl (32-36) RDW 12.8 % (11.5-14.5) Plt Count 190 k/mm3 (150-375) MPV 9.3 fl (7.4-10.4) Immature Gran % (Auto) 0.2 % (0-0.5) Neut % (Auto) 57.8 % (45.5-73.1) Lymph % (Auto) 24.0 % (18.3-44.2) [place] % (Auto) 15.2 H % (2.6-8.5) Eos % (Auto) 2.4 % (0-4.4) Baso % (Auto) 0.4 % (0.2-1.2) Lymph # (Auto) 1.31 K/mm3 (0.9-3.2) [place] # (Auto) 0.8 H K/mm3 (0.1-0.6) Eos # (Auto) 0.1 K/mm3 (0-0.3) Baso # (Auto) 0.0 K/mm3 (0.0-0.1) Abs Immat Gran (auto) 0.01 K/mm3 (0.00-0.031) Absolute Neuts (auto) 3.2 K/mm3 (1.3-6.7) Absolute Nucleated RBC 0.0 K/mm3 (0.0-0.012) Nucleated RBC % 0.0 % (0.0-0.2) Platelet Estimate Adequate (Adequate) Macrocytosis 1+ (NORMAL) Schistocytes None seen (NORMAL) Sodium 139 mmol/L (137-145) Potassium 3.4 mmol/L (3.4-5.0) Chloride 105 mmol/L (98-107) Carbon Dioxide 25 mmol/L (22-30) Anion Gap 9 mmol/L (8-16) BUN 27 H mg/dL (9-20) Creatinine 1.20 mg/dL (0.7-1.3) Estim Creat Clear Calc 41 ml/min Estimated GFR 57 L (59 - ) Glucose 111 H mg/dL (65-110) Calcium 8.7 mg/dL (8.4-10.2) Patient hx anesthesia problems: none Family hx anesthesia problems: none Results Review: All pre-operative results and documents have been reviewed as part of the pre-operative evaluation. [facility] Past Medical History Medical History (Updated 05/10/23 @ 16:10 by Robert Marte MD) Acute blood loss anemia Colon, diverticulosis Emphysema/COPD Rectal bleeding Sleep apnea Social History Social History Smoking status: Former smoker Alcohol intake: never Substance use: never Lack of Transportation: No Lack of Food: Never True Current Housing: I Have Housing Concerned About Future Housing: No Difficulty Paying Gas/Electric Bills: No Difficulty Payi
[2023-05-11] MEDS: LACTATED RINGERS 1,000 ML 150 ML IV CONT (13:28)
--- NOTE | 2023-05-11 14:07 | SUR.PHASEII ---
EKG ordered per Dr. Ramirez anesthesiologist. EKG completed and reviewed by Dr. Ramirez.
--- NOTE | 2023-05-11 14:11 | ECG_ITS ---
Measurements Intervals [place] Rate: 70 P: 72 UT: 215 QRS: 78 QRSD: 178 T: -31 QT: 425 QTc: 461 Interpretive Statements SINUS RHYTHM WITH FIRST DEGREE AV BLOCK WITH OCCASIONAL VENTRICULAR PREMATURE COMPLEXES RIGHT BUNDLE BRANCH BLOCK [120+ ms QRS DURATION, UPRIGHT V1, 40+ ms S IN I/aVL/V4/V5/V6] ABNORMAL ECG COMPARED TO ECG 10/16/2021 13:29:26 NO SIGNIFICANT CHANGES Electronically Signed On 05-12-2023 13:51:33 SERVICE GIRL by Angel Borjas M.D.
[2023-05-11] MEDS: DOXAZOSIN MESYLATE 4 MG TABLET BY MOUTH (15:29)
[2023-05-11] MEDS: ATORVASTATIN 20 MG TABLET BY MOUTH (15:29)
[2023-05-11] MEDS: GABAPENTIN 300 MG CAPSULE 600 MG BY MOUTH (15:30)
[2023-05-11] MEDS: buPROPion HCL SR (12 HR) 150 MG TAB PO (20:29)
[2023-05-11] MEDS: LATANOPROST 0.005% OP SOLN 2.5 ML BTL 1 DROP RIGHT EYE (20:29)
--- NOTE | 2023-05-11 21:11 | PCRCNOTE ---
Window of time for administration has passed. See next scheduled administration.
[2023-05-12 06:00] VITALS: BP 102/50; PULSE 69; RESP 14; TEMP 36.1; O2SAT 93
[2023-05-12 07:20] VITALS: PULSE 87; RESP 18; O2SAT 91
[2023-05-12] MEDS: FLUTICASONE/SALMETEROL 115-21 MCG INHALER 1 PUFF 2 PUFF INHALATION (07:20)
[2023-05-12 07:48] LABS: Alanine Aminotransferase 13 U/L (6-50); Albumin Level 3.2 g/dL (3.5-5.1); Alkaline Phosphatase 94 U/L (38-126); Anion Gap 5 mmol/L (8-16); Aspartate Amino Transferase 22 U/L (17-59); Bilirubin,Total 0.4 mg/dL (0.2-1.3); Blood Urea Nitrogen 25 mg/dL (9-20); Calcium 7.9 mg/dL (8.4-10.2); Carbon Dioxide 29 mmol/L (22-30); Chloride 105 mmol/L (98-107); Estimated CRCL calculation 41 ml/min; Estimated Glomerular Filt Rate 57; Glucose 115 mg/dL (65-110); Hematocrit 31.2 % (42.0-52.0); Hemoglobin 10.1 g/dL (14.0-18.0); Mean Corpuscular HGB Conc 32.4 g/dl (32-36); Mean Corpuscular Hemoglobin 34.1 pg (26-34); Mean Corpuscular Volume 105.4 fl (80-100); Mean Platelet Volume 9.5 fl (7.4-10.4); Platelet Count Result 181 k/mm3 (150-375); Potassium 3.4 mmol/L (3.4-5.0); Red Blood Count 2.96 M/mm3 (4.6-6.20); Red Cell Distribution Width 12.8 % (11.5-14.5); Sodium 139 mmol/L (137-145)
[2023-05-12 08:00] VITALS: O2SAT 93
--- NOTE | 2023-05-12 08:06 | P.PNAN_ITS ---
Anes - Prog Note Post-Op Date/Time: 05/12/23 08:06 Cardiovascular status: normal Respiratory status: normal Airway patency: baseline Mental status: baseline Post-Op hydration status: normal Vital Signs: Last Vital Signs Temp 36.1 C L 05/12/23 06:00 Pulse 69 05/12/23 06:00 Resp 14 05/12/23 06:00 BP 102/50 L 05/12/23 06:00 Pulse Ox 93 05/12/23 06:00 O2 Del Method Room Air 05/11/23 20:30 Pain Score (VAS): Patient asleep, no nonverbal signs of pain present at this time. I/O: Intake & Output 05/11/23 05/12/23 05/12/23 23:59 07:59 15:59 Intake Total 240 400 Balance 240 400 Laboratory Tests 05/12/23 07:08 05/11/23 05/12/23 06:51 07:08 WBC 5.5 Pending RBC 3.49 L Pending Hgb 11.7 L Pending Hct 36.8 L Pending MCV 105.4 H Pending MCH 33.5 Pending MCHC 31.8 L Pending RDW 12.8 Pending Plt Count 190 Pending MPV 9.3 Pending Immature Gran % (Auto) 0.2 Neut % (Auto) 57.8 Lymph % (Auto) 24.0 [place] % (Auto) 15.2 H Eos % (Auto) 2.4 Baso % (Auto) 0.4 Lymph # (Auto) 1.31 [place] # (Auto) 0.8 H Eos # (Auto) 0.1 Baso # (Auto) 0.0 Abs Immat Gran (auto) 0.01 Absolute Neuts (auto) 3.2 Absolute Nucleated RBC 0.0 Nucleated RBC % 0.0 Platelet Estimate Adequate Macrocytosis 1+ Schistocytes None seen Sodium 139 Potassium 3.4 Chloride 105 Carbon Dioxide 29 Anion Gap 5 L BUN 25 H Creatinine 1.20 Estim Creat Clear Calc 41 Estimated GFR 57 L Glucose 115 H Calcium 7.9 L Total Bilirubin 0.4 AST 22 ALT 13 Alkaline Phosphatase 94 Total Protein 6.0 L Albumin 3.2 L Post-procedural complaints: none Patient Feedback: Patient satisfied with anesthetic care.
[2023-05-12] MEDS: BRIMONIDINE TARTRATE 0.2% OP SOLN 5 ML BTL 1 DROP RIGHT EYE (08:42)
[2023-05-12] MEDS: buPROPion HCL SR (12 HR) 150 MG TAB PO (08:42)
[2023-05-12] MEDS: GABAPENTIN 300 MG CAPSULE 600 MG BY MOUTH (08:42)
[2023-05-12] MEDS: ATORVASTATIN 20 MG TABLET BY MOUTH (08:42)
[2023-05-12] MEDS: TIMOLOL MALEATE 0.5% OP SOLN 5 ML BOTTLE 1 DROP RIGHT EYE (08:42)
[2023-05-12 08:44] VITALS: BP 103/66
[2023-05-12] MEDS: PANTOPRAZOLE SODIUM IV 40 MG VIAL IV PUSH (08:49)
--- NOTE | 2023-05-12 15:32 | PM.DS ---
DS: Admitting Diagnosis Discharge Date 05/12/23 Admitting Diagnosis GI hemorrhage with melena Emphysema/COPD sleep apnea DS: Discharge Diagnosis Discharge Diagnosis (1) Gastrointestinal hemorrhage with melena: Code(s): K92.1 - Melena Status: Acute (2) Emphysema/COPD: Code(s): J43.9 - Emphysema, unspecified Status: Acute (3) Sleep apnea: Code(s): G47.30 - Sleep apnea, unspecified Status: Acute DS: Summary Hospital Course Reason for hospitalization: GI hemorrhage with melena Hospital Course: This is an 87 year old male who presented to the hospital on 05/09/23 with complaint of GI bleeding per rectum for 4-5 days. He reported having maroon stools. Workup in hospital included a CT of the abdomen/pelvis which revealed diverticulosis without perforation, nonobstructing left nephrolithiasis, small sliding hiatal hernia, emphysema with chronic peripheral reticular nodular opacities in the bilateral lower lungs, trabecular bladder wall with tiny bladder diverticulum likely related to chronic outlet obstruction from the enlarged prostate, no acute intra-abdominopelvic process. H/H was 13.4/41.2 on admission. GI was consulted. Patient had a colonoscopy done on 05/11/23 which shown a clot noted in the transverse colon due to a diverticular bleed, there was also multiple diverticuli seen. On examination today patient is alert and oriented x3, lying in the bed. VSS, he is afebrile, he is currently on room air. He denies any new complaints at this time. Labs today reveal hemoglobin 10.1, hematocrit 31.2, BUN 20, blood sugars ranging 111-115. He is stable for discharge at this time. He will need to follow up with PCP in 1 week. He will get another CBC on an outpatient basis to follow up on his H/H. Final diagnosis: GI hemorrhage with melena Status at Discharge Cognitive/behavioral status at discharge: alert oriented x3 Functional status at discharge: independent ambulation Overall status at discharge: patient is progressing back to baseline Time Spent with Patient Time attestation: Total time spent providing and/or coordinating discharge services: Time spent: Greater than 30 minutes Exam Narrative: General: In no acute distress, well nourished Head: atraumatic, no encephalopathy Eyes: EOMI, PERRLA, sclera clear ENT: moist mucous membranes, nasal passages clear Neck: supple, no JVD, no adenopathy, trachea midline Cardiac: Normal S1 and S2. No murmur, gallops or friction rubs, peripheral pulses intact. Respiratory: Lungs clear to auscultation, no adventitious lung sounds Gastrointestinal: soft, non-distended, non-tender, normoactive bowel sounds. : voiding without difficulty. Extremities: moves all extremities well, no edema, good ROM, strength 5/5 Skin: clean, dry, intact. No wounds or lesions. Neuro: Alert and oriented x4, cranial nerves intact, no neuro deficits. Psych: normal mood, normal affect, interactive DS: Data Data Completed and Pending Completed studies during hospitalization: abdomen pelvis CT Pending studies at discharge: none Labs on day of discharge: Labs from last 24 hours 05/12/23 07:08 WBC 6.0 RBC 2.96 L Hgb 10.1 L Hct 31.2 L MCV 105.4 H MCH 34.1 H MCHC 32.4 RDW 12.8 Plt Count 181 MPV 9.5 Sodium 139 Potassium 3.4 Chloride 105 Carbon Dioxide 29 Anion Gap 5 L BUN 25 H Creatinine 1.20 Estim Creat Clear Calc 41 Estimated GFR 57 L Glucose 115 H Calcium 7.9 L Total Bilirubin 0.4 AST 22 ALT 13 Alkaline Phosphatase 94 Total Protein 6.0 L Albumin 3.2 L Discharge Plan Discharge Attending physician on discharge: Nicole Enriquez Consulting providers: Robert Marte; Judd Fernandez; Natalie Amezquita; Tammy Saldivar; Ja Ramirez; Angel Borjas; Pippa Hutchinson Discharging Clinician: Tammy Saldivar Anticipated Discharge Date/Time: 05/12/23 09:27 Patient Disposition: Home, Self-Care
--- NOTE | 2023-05-12 16:09 | WPDGIPROGNO ---
Progress Note: A&P Assessment and Plan (1) Diverticular hemorrhage: Code(s): K57.31 - Diverticulosis of large intestine without perforation or abscess with bleeding Status: Acute Assessment and Plan: no more bleeding h/h stable since colonoscopy he is going home (2) Acute blood loss anemia: Code(s): D62 - Acute posthemorrhagic anemia Status: Acute (3) Rectal bleeding: Code(s): K62.5 - Hemorrhage of anus and rectum Status: Acute (4) Emphysema/COPD: Code(s): J43.9 - Emphysema, unspecified Status: Acute Subjective Date/time seen: 05/12/23 16:09 Interval history: colonoscopy with old hematin in rigth colon today doing well, no more bleeding Review of Systems Review of Systems: All systems reviewed & are unremarkable except as noted in HPI and below Exam Const: General: comfortable and no acute distress HENMT: Face/Nose/Sinus: Normal nares present Eyes: General: appearance normal, both eyes and all related structures Neck: Neck: no JVD Resp: Auscultation: clear to auscultation bilaterally Cardio: Rate: regular rate Rhythm: regular rhythm GI: Inspection: non-distended GI Palp: Yes Soft to palpation Skin: General skin exam: normal color Neuro: General: gait normal Speech: normal speech Extrem: General: normal to inspection Psych: Mental Status: mental status grossly normal Objective Data Vital Signs Vital Signs: Vital Signs - 24 hr 05/11/23 20:30 05/11/23 21:45 05/12/23 06:00 Temperature 96.9 F L 97.0 F L Pulse Rate 72 69 Respiratory Rate 16 14 Blood Pressure 105/74 102/50 L Pulse Oximetry 94 93 Oxygen Delivery Room Air 05/12/23 08:44 05/12/23 08:00 05/12/23 07:20 Temperature Pulse Rate 87 Respiratory Rate 18 Blood Pressure 103/66 Pulse Oximetry 93 91 Oxygen Delivery Room Air Room Air 05/12/23 07:20 Temperature Pulse Rate 87 Respiratory Rate 18 Blood Pressure Pulse Oximetry Oxygen Delivery Intake/Output Intake/Output: Intake & Output 05/09/23 05/10/23 05/11/23 05/12/23 23:59 23:59 23:59 23:59 Intake Total 500 325 318 6285 Balance 500 372 931 1676 Meds/Results Radiology Results: ITS Impressions Abdomen/Pelvis CT 05/09/23 18:45 IMPRESSION: 1. No acute intra-abdominal/pelvic process. 2. Nonobstructing left nephrolithiasis. 3. Diverticulosis. 4. Trabecular bladder wall with tiny bladder diverticulum likely related to chronic outlet obstruction from the enlarged prostate. 5. Emphysema with chronic peripheral reticular nodular opacities in the bilateral lower lungs which could represent chronic interstitial lung disease or sequela of chronic infection. 6. Small sliding-type hiatal hernia. Labs Labs: Laboratory Results - last 24 hr 05/12/23 07:08 WBC 6.0 RBC 2.96 L Hgb 10.1 L Hct 31.2 L MCV 105.4 H MCH 34.1 H MCHC 32.4 RDW 12.8 Plt Count 181 MPV 9.5 Sodium 139 Potassium 3.4 Chloride 105 Carbon Dioxide 29 Anion Gap 5 L BUN 25 H Creatinine 1.20 Estim Creat Clear Calc 41 Estimated GFR 57 L Glucose 115 H Calcium 7.9 L Total Bilirubin 0.4 AST 22 ALT 13 Alkaline Phosphatase 94 Total Protein 6.0 L Albumin 3.2 L Amg Follow-up Billing Hospital Follow-up Hospital Follow-up: [id number] [facility] Mod
== END 2023-05-12 13:31 | disposition home or self-care (01) ==
LOC: ANHED 19:33 → ANH3MEDSUR 05-10 13:11
PROVIDERS: Emergency Medicine; Internal Medicine Gastroenterology; Nurse Practitioner; Nurse Practitioner Acute Care; Admitting Provider Internal Medicine; Emergency Provider Student in an Organized Health Care Education/Training Program; PCP Internal Medicine; Visit Provider Student in an Organized Health Care Education/Training Program
PROC: 0DJD8ZZ Inspection of Lower Intestinal Tract, Via Natural or Artificial Opening Endoscopic (ICD-10-PCS; CPT 45378; principal; 2023-05-11 14:30)
DX: K57.30 Diverticulosis of large intestine without perforation or abscess without bleeding (principal); K62.5 Hemorrhage of anus and rectum; R93.3 Abnormal findings on diagnostic imaging of other parts of digestive tract; J43.9 Emphysema, unspecified; G47.30 Sleep apnea, unspecified; D62 Acute posthemorrhagic anemia; K44.9 Diaphragmatic hernia without obstruction or gangrene; I25.10 Atherosclerotic heart disease of native coronary artery without angina pectoris; R94.31 Abnormal electrocardiogram [ECG] [EKG]; Z95.5 Presence of coronary angioplasty implant and graft; K57.92 Diverticulitis of intestine, part unspecified, without perforation or abscess without bleeding; Z79.51 Long term (current) use of inhaled steroids; Z79.02 Long term (current) use of antithrombotics/antiplatelets; Z79.82 Long term (current) use of aspirin; Z79.899 Other long term (current) drug therapy
CPT/HCPCS: 45378; 36415; 74177; 80048; 80053; 83605; 83690; 84484; 85014; 85018; 85025; 85027; 85610; 85730; 86850; 86900; 86901; 93005; 94640; 96374; 99285; A9270; C9113; G0378; J2704; J7040; J7120; Q9967

== ENCOUNTER 2023-05-13 23:03 | Observation (INO) | payer MEDICARE, SELFPAY ==
--- NOTE | ~2023-05-13 | NM_ITS ---
EXAMINATION: NM GI bleeding DATE: 05/16/2023 14:52 INDICATION: Diverticular bleeding TECHNIQUE: 22.7 mCi Tc 99m in vitro labeled red cells administered intravenously. Scintigraphic imag es of the abdomen were obtained through 1 hour. FINDINGS: No pattern of abnormal activity is seen in the abdomen or pelvis to suggest gastrointestina l hemorrhage. IMPRESSION: 1. No scintigraphic evidence for active gastrointestinal bleeding. Reviewed, dictated and finalized at location A. HOUSE SITTER
--- NOTE | ~2023-05-13 | CT_ITS ---
EXAMINATION: CT abdomen pelvis w con DATE: 05/13/2023 23:51 INDICATION: Abdominal pain and gastrointestinal bleed. Recent colonoscopy. TECHNIQUE: Computed tomography (CT) of the abdomen and pelvis was performed with 100 mL Omnipaque-350 intravenous contrast. Automated exposure control and iterative reconstruction technique were employe d. The dose-length product was 703.34 mGy-cm. COMPARISON: 05/09/2023 FINDINGS: Gaseous emphysema with peripheral reticular opacities at the bilateral lung bases consistent with chr onic interstitial lung disease or sequela of chronic infection. Heart size is normal. No pericardial or pleural effusion. Atherosclerotic coronary artery calcific lesion. Small sliding-type hiatal herni a. Cholecystectomy clips at the gallbladder fossa. Liver, pancreas, bilateral adrenal glands and righ t kidney are normal. There are a few small nonenhancing left renal cysts the largest measuring 1.2 cm . Change in position of a still nonobstructing 3 to 4 mm left renal stone, now in a middle calyx of t he kidney. Multiple splenic calcifications consistent with old granulomatous disease. There is modera te colonic diverticulosis with a sigmoid predominance. There is no adjacent inflammatory change to s uggest diverticulitis. No evident active contrast extravasation along the colon. Small bowel and appe ndix are normal. No prosthesis with reservoir in the anterior right hemipelvis. Mild bladder wall thi ckening likely related to chronic outlet obstruction from the enlarged prostate. Small fat-containing left inguinal hernia. No free intraperitoneal gas or fluid. No pathologically enlarged abdominal or pelvic lymphadenopathy. Moderate lumbar spondylosis with chronic L1 compression fracture. IMPRESSION: 1. No acute intra-abdominal/pelvic process. 2. Nonobstructing left nephrolithiasis. 3. Diverticulosis. 4. Small sliding-type hiatal hernia. 5. Emphysema with peripheral chronic interstitial fibrosis versus of chronic infection. 6. Mild diffuse bladder wall thickening likely related to chronic outlet obstruction from the enlarge d prostate. Reviewed, dictated and finalized at location A. ERN LEASE INSPECTOR IMPRESSION: 1. No acute intra-abdominal/pelvic process. 2. Nonobstructing left nephrolithiasis. 3. Diverticulosis. 4. Small sliding-type hiatal hernia. 5. Emphysema with peripheral chronic interstitial fibrosis versus of chronic in fection. 6. Mild diffuse bladder wall thickening likely related to chronic outlet obstru ction from the enlarged prostate.
[2023-05-13 23:07] VITALS: BP 125/60; PULSE 81; RESP 18; TEMP 36.7; O2SAT 97
--- NOTE | 2023-05-13 23:28 | ED.GENADULT ---
HPI - General Adult General Chief complaint: GI Bleed Stated complaint: rectal bleeding Time Seen by Provider: 05/13/23 23:15 History of Present Illness HPI narrative: patient is a 87-year-old gentleman presents emerged department chief complaint of rectal bleeding. Patient is admitted to the hospital and had a colonoscopy yesterday patient went home was feeling better and ate dinner and then started having maroon-colored stools. The patient states he has some discomfort in his lower abdomen reports that he is not on blood thinners but it is on anti-platelet therapy. Related Data Home Medications Medication Instructions Recorded Confirmed atorvastatin 20 mg tablet 20 mg DAILY 10/16/21 05/09/23 budesonide-formoterol HFA 160 2 puff inhalation BID 10/16/21 05/09/23 mcg-4.5 mcg/actuation aerosol inhaler (Symbicort) bupropion HCl 150 mg tablet,12 hr 150 mg PO BID 10/16/21 05/09/23 sustained-release docosahexaenoic acid (dha)-epa 120 1 cap DAILY 10/16/21 05/09/23 mg-180 mg capsule (Fish Oil) doxazosin 4 mg tablet 4 mg DAILY 10/16/21 05/09/23 gabapentin 300 mg capsule 600 mg DAILY 10/16/21 05/09/23 isosorbide mononitrate 30 mg 30 mg PO DAILY 10/16/21 05/09/23 tablet,extended release 24 hr omeprazole 20 mg capsule,delayed 20 mg DAILY 10/16/21 05/09/23 release Aspir-81 81 mg PO DAILY 05/09/23 05/09/23 albuterol sulfate 90 mcg/actuation 2 puff inhalation PRN PRN Wheezing 05/09/23 05/09/23 aerosol inhaler brimonidine 0.2 %-timolol 0.5 % 1 drp RIGHT EYE BID 05/09/23 05/09/23 eye drops (Combigan) latanoprost 0.005 % eye drops 1 drp RIGHT EYE HS 05/09/23 05/09/23 Allergies Allergy/AdvReac Type Severity Reaction Status Date / Time No Known Allergies Allergy Mild Verified 05/14/23 00:03 [facility] Past Medical History Medical History Acute blood loss anemia Colon, diverticulosis Diverticular hemorrhage Emphysema/COPD Rectal bleeding Sleep apnea Social History Social History Smoking status: Former smoker Alcohol intake: never Substance use: never Lack of Transportation: No Lack of Food: Never True Current Housing: I Have Housing Concerned About Future Housing: No Difficulty Paying Gas/Electric Bills: No Difficulty Paying for Meds: No Currently Unemployed: No Education: High School Diploma/GED Difficulty w/ Childcare or Family Care: No Spiritual care concerns: No Exam Narrative: GENERAL: Well-appearing, well-nourished, and in no acute distress. HEAD: Normocephalic, atraumatic. EYES: PERRLA and EOMI. ENT: Nares clear, no rhinorrhea or epistaxis. Mucous membranes moist. NECK: Supple. CHEST: Clear to auscultation. No respiratory distress. HEART: Regular rate and rhythm. No murmur heard. Normal peripheral pulses. ABDOMEN: Soft, nontender, nondistended, normal active bowel sounds. : maroon colored guaiac-positive stool EXTREMITIES: Normal range of motion. No edema. SKIN: Warm, dry, no rash. NEURO: No focal deficits. Alert and oriented x3. PSYCH: Normal mood and affect. Course Vital Signs Vital signs: Vital Signs Temperature 36.7 C 05/13/23 23:07 Pulse Rate 81 05/13/23 23:07 Respiratory Rate 18 05/13/23 23:07 Blood Pressure 125/60 05/13/23 23:07 Pulse Oximetry 97 05/13/23 23:07 Oxygen Delivery Room Air 05/13/23 23:07 Temperature 36.7 C 05/13/23 23:07 Pulse Rate 83 05/14/23 00:56 Respiratory Rate 20 05/14/23 00:56 Blood Pressure 111/56 L 05/14/23 00:56 Pulse Oximetry 99 05/14/23 00:56 Oxygen Delivery Room Air 05/13/23 23:07 Medical Decision Making [facility] Narrative Medical decision making narrative: differential diagnosis includes GI bleed, diverticular bleed, upper GI bleed. The patient was given Protonix in the emergency department and hydrated. Patient had obvious rectal bleeding on ex
[2023-05-13] MEDS: SODIUM CHLORIDE 0.9% IV 1,000 ML 999 ML IV CONT (23:58)
[2023-05-13] MEDS: PANTOPRAZOLE SODIUM IV 40 MG VIAL IV PUSH (23:59)
[2023-05-14] VITALS (30 sets, daily range): BP systolic 90–144; BP diastolic 49–82; PULSE 72–89; RESP 14–95; TEMP 36.2–36.7; O2SAT 16–100; BMI 24.5
[2023-05-14 00:06] LABS: Basophils Percent Auto 0.5 % (0.2-1.2); Eosinophils Absolute Auto 0.1 K/mm3 (0-0.3); Eosinophils Percent Auto 1.5 % (0-4.4); Hematocrit 28.5 % (42.0-52.0); Hemoglobin 9.1 g/dL (14.0-18.0); Immature Granulocyte Absolute 0.05 K/mm3 (0.00-0.031); Immature Granulocyte Percent A 0.8 % (0-0.5); Lymphocytes Percent Auto 21.5 % (18.3-44.2); Mean Corpuscular HGB Conc 31.9 g/dl (32-36); Mean Corpuscular Hemoglobin 33.8 pg (26-34); Mean Corpuscular Volume 105.9 fl (80-100); Mean Platelet Volume 9.7 fl (7.4-10.4); Monocytes Absolute Auto 0.9 K/mm3 (0.1-0.6); Monocytes Percent Auto 13.7 % (2.6-8.5); Platelet Count Result 217 k/mm3 (150-375); Red Blood Count 2.69 M/mm3 (4.6-6.20); Red Cell Distribution Width 13.2 % (11.5-14.5); White Blood Count 6.5 K/mm3 (4.5-10.0)
[2023-05-14 00:25] LABS: Alanine Aminotransferase 14 U/L (6-50); Albumin Level 3.3 g/dL (3.5-5.1); Alkaline Phosphatase 91 U/L (38-126); Anion Gap 6 mmol/L (8-16); Aspartate Amino Transferase 22 U/L (17-59); Bilirubin,Total 0.3 mg/dL (0.2-1.3); Blood Urea Nitrogen 29 mg/dL (9-20); Calcium 8.4 mg/dL (8.4-10.2); Carbon Dioxide 28 mmol/L (22-30); Chloride 105 mmol/L (98-107); Estimated CRCL calculation 45 ml/min; Estimated Glomerular Filt Rate > 60; Glucose 111 mg/dL (65-110); Lactic Acid Reflex 1.9 mmol/L (0.7-2.0); Lipase 82 U/L (23-300); Magnesium 2.3 mg/dL (1.6-2.3); Sodium 139 mmol/L (137-145)
[2023-05-14 00:39] LABS: Partial Thromboplastin Time 31.5 SECONDS (22.3-36.8); Prothrombin Time 13.9 Seconds (11.1-14.7)
[2023-05-14 01:24] LABS: Appearance Urine Clear (Clear); Bacteria Urine None Seen /hpf; Bilirubin Urine Negative (Negative); Blood Urine 1+ (Negative); Color Urine Yellow (Yellow); Glucose Urine UA Negative (Negative); Ketones Urine Negative (Negative); Leukocyte Esterase Ur 1+ LEU/UL (Negative); Nitrate Urine Negative (Negative); Non Pathogenic Casts 0-2; Protein Urine Negative (Negative); RBC Urine 0-2 /hpf (0-2); Squamous Epithelial Cell Urine None seen /hpf (Few); WBC Urine 51-100 /hpf; pH Urine 5.5 (5.0-9.0)
[2023-05-14 01:52] LABS: Need Manual Microscopic Reviewed; Specific Grav Ur 1.067 (1.001-1.035)
[2023-05-14 01:53] LABS: Add Urine Microscopic? YES
[2023-05-14] MEDS: SODIUM CHLORIDE 0.9% IV 1,000 ML 75 ML IV CONT (01:56)
[2023-05-14] MEDS: ONDANSETRON INJ 4 MG/2 ML VIAL IV PUSH (01:57)
--- NOTE | 2023-05-14 09:14 | PM.IMHP ---
H&P: HPI History of Present Illness Date/Time: 05/14/23 09:14 Chief Complaint: Rectal bleeding Narrative: This is a 87 year old male with a significant past medical history of acute blood loss anemia, colon diverticulosis, diverticular hemorrhage, rectal bleeding, emphysema / COPD, sleep apnea who presented to the ER for evaluation of dark maroon stools. Patient was just seen, treated and discharged on 05/12/23 for the same symptoms. he states that he went home after being discharged from hospital, ate dinner, and then had a few dark maroon stools right after. patient was concerned for her GI bleed and presented to the hospital further workup. 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 Labs initially revealed WBC 6.5, Hgb 9.1, Hct 28.5, Na+ 139, K+ 4.0, BUN 29, Creatinine 1.10. BG ranging 111-115, Liver enzymes are normal. UA shown 1+ blood, 1+ leukocytes, 51-100 urine WBC. Urine culture was obtained and is pending. GI was reconsulted. On examination today patient is alert and oriented x3, lying in the bed. VSS, he is afebrile, and currently on room air. He denies any nausea, vomiting, diarrhea, abdominal pain, shortness a breath, chest pain.Repeat H/H showing continued drop with Hgb 7.8/ Hct 24.6. GI plans to get a GI bleed nuclear medicine study. We will continue to monitor H&H and will give blood when indicated. Review of Systems Review of Systems: All systems reviewed & are unremarkable except as noted in HPI and below Constitutional: Constitutional: Reports as per HPI and Reports no additional constitutional complaints Eyes: Eyes: Reports as per HPI and Reports no additional eye complaints ENT: Reports system reviewed and no additional complaints, except as documented and Reports as per HPI Cardiovascular: Cardiovascular: Reports as per HPI and Reports no additional cardiovascular complaints Respiratory: Respiratory: Reports as per HPI and Reports no additional respiratory complaints Gastrointestinal: Gastrointestinal: Reports as per HPI and Reports no additional gastrointestinal complaints Genitourinary: Genitourinary: Reports no additional male genitourinary complaints and Reports as per HPI Musculoskeletal: Musculoskeletal: Reports no additional musculoskeletal complaints and Reports as per HPI Integumentary/Breasts: Skin/Breast: Reports system reviewed and no additional complaints, except as docu and Reports as per HPI Neurologic: Reports system reviewed and no additional complaints, except as documented and Reports as per HPI Psychiatric: Psychiatric: Reports no additional psychiatric complaints and Reports as per HPI [facility] Past Medical History Medical History Acute blood loss anemia Colon, diverticulosis Diverticular hemorrhage Emphysema/COPD Rectal bleeding Sleep apnea Social History Social History Smoking status: Former smoker Alcohol intake: never Substance use: never Lack of Transportation: No Lack of Food: Never True Current Housing: I Have Housing Concerned About Future Housing: No Difficulty Paying Gas/Electric Bills: No Difficulty Paying for Meds: No Currently Unemployed: No Education: High School Diploma/GED Difficulty w/ Childcare or Family Care: No Spiritual care concerns: No Meds Home Medications and Allergies Home Medications Medication Instructions Recorded Confirmed Type atorvastatin 20 mg tablet 20 mg DAILY 10/16/21 05/14/23 History budesonide-formoterol HFA 160 2 puff inhalation BID 10/16/21 05/14/23 Histo
[2023-05-14] MEDS: SODIUM CHLORIDE 0.9% IV 1,000 ML 100 ML IV CONT ×2 (09:33→15:28)
--- NOTE | 2023-05-14 09:44 | PC.NURSE ---
Do not start PO medication until 05/15/23 per Tammy Saldivar APRN. Will remain PO until evaluated by GI
[2023-05-14] MEDS: PANTOPRAZOLE SODIUM IV 40 MG VIAL IV PUSH ×2 (11:05→20:29)
[2023-05-14] MEDS: BRIMONIDINE TARTRATE 0.2% OP SOLN 5 ML BTL 1 DROP EACH EYE ×2 (11:06→20:36)
[2023-05-14] MEDS: TIMOLOL MALEATE 0.5% OP SOLN 5 ML BOTTLE 1 DROP EACH EYE ×2 (11:07→20:36)
--- NOTE | 2023-05-14 11:18 | PC.NURSE ---
pt is unable to take scheduled PO meds at this time due to being NPO
--- NOTE | 2023-05-14 12:14 | PC.NURSE ---
This patient, Rogerio Vivar, was admitted to Medical Room 248-. Patient/family oriented to hospital policies and general routines including ID bracelet, bed and alarms, visiting hours, pain management, procedures, bathroom and other care routines, personal items, smoking policy, room service/diet, and visiting hours. Information on how to activate the Rapid Response Team has been discussed. Patient/Family are encouraged to report perceived risks to care and to ask questions if they do not understand what they are told or what they should do.
--- NOTE | 2023-05-14 12:55 | WPDGICN ---
Assessment and Plan Assessment and plan (1) Acute blood loss anemia: Code(s): D62 - Acute posthemorrhagic anemia Status: Acute Assessment and Plan: recurrent rectal bleeding, recent colonoscopy stigmata of bleeding with clots in transverse but no active bleeding, probably diverticular source will get GIB nuclear medical study and consult surgery if ongoing bleeding consider interventional radiology evaluation at another hospital noted mild elevated BUN but no melena, if more bleeding we could also consider EGD to rule out upper GI source (2) Diverticular hemorrhage: Code(s): K57.31 - Diverticulosis of large intestine without perforation or abscess with bleeding Status: Acute Assessment and Plan: had recent colonoscopy (3) Rectal bleeding: Code(s): K62.5 - Hemorrhage of anus and rectum Status: Acute Assessment and Plan: monitor for more signs of bleeding (4) Colon, diverticulosis: Code(s): K57.30 - Diverticulosis of large intestine without perforation or abscess without bleeding Status: Acute (5) Emphysema/COPD: Code(s): J43.9 - Emphysema, unspecified Status: Acute GI Consult Note Consult date/time: 05/14/23 12:55 Reason for consult: rectal bleeding HPI: Rogerio Vivar is a 87 year old male with?past medical history significant for COPD/emphysema, hypertension, sleep apnea. He was just admitted to hospital after rectal bleeding, CT scan showed diverticulosis. Colonoscopy 05/11 showed old blood in right colon but no signs of active bleeding, also significant diverticulosis and this was thought to be cause of bleeding. He went home but yesterday again had 2 episodes of maroon stool and readmitted again. Hgb 9.1 (baseline 14, he went home with 10) Review of Systems Constitutional: Constitutional: Reports weakness Eyes: Eyes: Denies blurry vision ENT: Comments: hard of hearing Cardiovascular: Cardiovascular: Denies chest pain Respiratory: Respiratory: Denies cough Gastrointestinal: Gastrointestinal: Reports hematochezia and Denies nausea Genitourinary: Genitourinary: Denies flank pain Musculoskeletal: Musculoskeletal: Denies arthralgias Integumentary/Breasts: Skin/Breast: Denies rash Neurologic: Denies Abnormal speech present Psychiatric: Psychiatric: Denies confusion PMFSH Past Medical History Medical History Acute blood loss anemia Colon, diverticulosis Diverticular hemorrhage Emphysema/COPD Rectal bleeding Sleep apnea Social History Social History Smoking status: Former smoker Alcohol intake: never Substance use: never Lack of Transportation: No Lack of Food: Never True Current Housing: I Have Housing Concerned About Future Housing: No Difficulty Paying Gas/Electric Bills: No Difficulty Paying for Meds: No Currently Unemployed: No Education: High School Diploma/GED Difficulty w/ Childcare or Family Care: No Spiritual care concerns: No Meds Home Medications and Allergies Home Medications Medication Instructions Recorded Confirmed Type atorvastatin 20 mg tablet 20 mg DAILY 10/16/21 05/14/23 History budesonide-formoterol HFA 160 2 puff inhalation BID 10/16/21 05/14/23 History mcg-4.5 mcg/actuation aerosol inhaler (Symbicort) bupropion HCl 150 mg tablet,12 hr 150 mg PO BID 10/16/21 05/14/23 History sustained-release docosahexaenoic acid (dha)-epa 120 1 cap DAILY 10/16/21 05/14/23 History mg-180 mg capsule (Fish Oil) doxazosin 4 mg tablet 4 mg DAILY 10/16/21 05/14/23 History gabapentin 300 mg capsule 600 mg DAILY 10/16/21 05/14/23 History isosorbide mononitrate 30 mg 30 mg PO DAILY 10/16/21 05/14/23 History tablet,extended release 24 hr omeprazole 20 mg capsule,delayed 20 mg DAILY 10/16/21 05/14/23 History release Aspir-81 81 mg P
[2023-05-14 13:02] LABS: Hematocrit 24.6 % (42.0-52.0); Hemoglobin 7.8 g/dL (14.0-18.0)
[2023-05-14 16:50] LABS: Hematocrit 24.5 % (42.0-52.0); Hemoglobin 7.6 g/dL (14.0-18.0)
[2023-05-14 17:13] LABS: Glucose Point of Care 97 mg/dl (65-105)
--- NOTE | 2023-05-14 17:15 | ECG_ITS ---
Measurements Intervals [place] Rate: 84 P: -76 GA: 197 QRS: 46 QRSD: 172 T: -25 QT: 433 QTc: 515 Interpretive Statements SINUS RHYTHM WITH FIRST-DEGREE AV BLOCK RIGHT BUNDLE BRANCH BLOCK ABNORMAL ECG COMPARED TO ECG 05/11/2023 14:06:10 NO DIFFERENCE Electronically Signed On 05-15-2023 8:58:53 ASSISTANT FRONT END MANAGER by Jefferson Moeller M.D.
[2023-05-14] MEDS: SODIUM CHLORIDE 0.9% IV 250 ML 30 ML IV CONT (17:51)
[2023-05-14 18:06] LABS: Troponin I < 0.012 ng/mL (0.000-0.034)
[2023-05-14] MEDS: LATANOPROST 0.005% OP SOLN 2.5 ML BTL 1 DROP RIGHT EYE (20:36)
[2023-05-14] MEDS: FLUTICASONE/SALMETEROL 115-21 MCG INHALER 1 PUFF 2 PUFF INHALATION (20:43)
[2023-05-15] VITALS (12 sets, daily range): BP systolic 114–138; BP diastolic 49–73; PULSE 67–91; RESP 14–18; TEMP 36.5–36.8; O2SAT 94–96
[2023-05-15] MEDS: SODIUM CHLORIDE 0.9% IV 1,000 ML 100 ML IV CONT ×2 (05:42→16:20)
[2023-05-15 06:41] LABS: Hematocrit 29.8 % (42.0-52.0); Hemoglobin 9.6 g/dL (14.0-18.0)
[2023-05-15 06:43] LABS: Hematocrit 30.2 % (42.0-52.0); Hemoglobin 9.5 g/dL (14.0-18.0); Mean Corpuscular HGB Conc 31.5 g/dl (32-36); Mean Corpuscular Hemoglobin 33.3 pg (26-34); Mean Platelet Volume 9.7 fl (7.4-10.4); Platelet Count Result 138 k/mm3 (150-375); Red Blood Count 2.85 M/mm3 (4.6-6.20); Red Cell Distribution Width 15.6 % (11.5-14.5); White Blood Count 5.6 K/mm3 (4.5-10.0)
[2023-05-15 06:54] LABS: Alanine Aminotransferase 13 U/L (6-50); Albumin Level 3.4 g/dL (3.5-5.1); Alkaline Phosphatase 87 U/L (38-126); Anion Gap 6 mmol/L (8-16); Aspartate Amino Transferase 21 U/L (17-59); Bilirubin,Total 0.8 mg/dL (0.2-1.3); Blood Urea Nitrogen 14 mg/dL (9-20); Carbon Dioxide 23 mmol/L (22-30); Chloride 109 mmol/L (98-107); Estimated CRCL calculation 54 ml/min; Estimated Glomerular Filt Rate > 60; Glucose 91 mg/dL (65-110); Potassium 3.6 mmol/L (3.4-5.0); Sodium 138 mmol/L (137-145)
--- NOTE | 2023-05-15 08:38 | P.PNIM_ITS ---
Progress Note: A&P Assessment and Plan (1) Acute GI bleeding: Code(s): K92.2 - Gastrointestinal hemorrhage, unspecified Status: Acute Assessment and Plan: 05/14/23: * Patient had a few dark maroon stools at home after eating dinner, came back for re-evaluation of GI bleeding. * Patient recently discharged on 05/12/23 for same symptoms. GI seen and did colonoscopy which shown a clot in the transverse colon from a bleeding diverticula, no active bleed was seen. He was discharged with an H/H of 10.1/31.2 with plans to get a repeat CBC in 1 week and follow up with PCP. * H/H trending downward, initial H/H 9.1/28.5, now down to 7.8/24.6. * Continue to trend labs, give blood when indicated. * GI consulted * Plan for GI bleeding nuclear medicine scan * BUN elevated to 29 * Patient on 40 mg Protonix BID 05/15/2023: * Patient was given 1 unit of blood yesterday * Hemoglobin today is 9.5, hematocrit 30.2 * Gastroenterology following * BUN 14 today * Continue with Protonix b.i.d. * Continue to trend labs * Continue cardiac telemetry monitoring * Plan for GI bleeding nuclear medicine scan today (2) Diverticular hemorrhage: Code(s): K57.31 - Diverticulosis of large intestine without perforation or abscess with bleeding Status: Acute Assessment and Plan: see above (3) Rectal bleeding: Code(s): K62.5 - Hemorrhage of anus and rectum Status: Acute Assessment and Plan: 05/14/23: * Patient reporting melena stools at home. * Patient states he has not had any bloody stools since then. * see above plan of care. 05/15/2023: * Patient has had no more bowel movements since this admission. * See plan of care and treatment up above (4) Emphysema/COPD: Code(s): J43.9 - Emphysema, unspecified Status: Acute Assessment and Plan: 05/14/23: * Continue albuterol treatments as needed * Patient currently on room air, no acute respiratory distress. 05/15/2023: * No change to current treatment plan Time Spent With Patient Time with patient: Greater than 35 minutes Subjective Date/time seen: 12/17/23 08:38 Interval history: 05/14/23: This is a 87 year old male with a significant past medical history of acute blood loss anemia, colon diverticulosis, diverticular hemorrhage, rectal bleeding, emphysema / COPD, sleep apnea who presented to the ER for evaluation of dark maroon stools. Patient was just seen, treated and discharged on 05/12/23 for the same symptoms.? he states that he went home after being discharged from hospital, ate dinner, and then had a few dark maroon stools right after.? patient was concerned for her GI bleed and presented to the hospital further workup. ? Work up in the ER included a CT of the abdomen/pelvis which shown no acute intra-abdominal/pelvic process, nonobstructing left nephrolithiasis, diverticulosis, small sliding hiatal hernia, emphysema with peripheral chronic interstitial fibrosis versus chronic infection, mild diffuse bladder wall thickening likely related to chronic outlet obstruction from the enlarged pr ostate. Labs initially revealed WBC 6.5, Hgb 9.1, Hct 28.5, Na+ 139, K+ 4.0, BUN 29, Creatinine 1.10. BG ranging 111-115, Liver enzymes are normal. UA shown 1+ blood, 1+ leukocytes, 51-100 urine WBC. Urine culture was obtained and is pending. GI was reconsulted. On examination today patient is alert and oriented x3, lying in the bed. VSS, he is afebrile, and currently on room air.? He denies any nausea, vomiting, diarrhea, abdominal pain, shortness a breath, chest pain.Repeat H/H showing continued drop with Hgb
--- NOTE | 2023-05-15 08:38 | PM.IMPN ---
Progress Note: A&P Assessment and Plan (1) Acute GI bleeding: Code(s): K92.2 - Gastrointestinal hemorrhage, unspecified Status: Acute Assessment and Plan: 05/14/23: Patient had a few dark maroon stools at home after eating dinner, came back for re-evaluation of GI bleeding. Patient recently discharged on 05/12/23 for same symptoms. GI seen and did colonoscopy which shown a clot in the transverse colon from a bleeding diverticula, no active bleed was seen. He was discharged with an H/H of 10.1/31.2 with plans to get a repeat CBC in 1 week and follow up with PCP. H/H trending downward, initial H/H 9.1/28.5, now down to 7.8/24.6. Continue to trend labs, give blood when indicated. GI consulted Plan for GI bleeding nuclear medicine scan BUN elevated to 29 Patient on 40 mg Protonix BID 05/15/2023: Patient was given 1 unit of blood yesterday Hemoglobin today is 9.5, hematocrit 30.2 Gastroenterology following BUN 14 today Continue with Protonix b.i.d. Continue to trend labs Continue cardiac telemetry monitoring Plan for GI bleeding nuclear medicine scan today (2) Diverticular hemorrhage: Code(s): K57.31 - Diverticulosis of large intestine without perforation or abscess with bleeding Status: Acute Assessment and Plan: see above (3) Rectal bleeding: Code(s): K62.5 - Hemorrhage of anus and rectum Status: Acute Assessment and Plan: 05/14/23: Patient reporting melena stools at home. Patient states he has not had any bloody stools since then. see above plan of care. 05/15/2023: Patient has had no more bowel movements since this admission. See plan of care and treatment up above (4) Emphysema/COPD: Code(s): J43.9 - Emphysema, unspecified Status: Acute Assessment and Plan: 05/14/23: Continue albuterol treatments as needed Patient currently on room air, no acute respiratory distress. 05/15/2023: No change to current treatment plan Time Spent With Patient Time with patient: Greater than 35 minutes Subjective Date/time seen: 05/15/23 08:38 Interval history: 05/14/23: This is a 87 year old male with a significant past medical history of acute blood loss anemia, colon diverticulosis, diverticular hemorrhage, rectal bleeding, emphysema / COPD, sleep apnea who presented to the ER for evaluation of dark maroon stools. Patient was just seen, treated and discharged on 05/12/23 for the same symptoms.? he states that he went home after being discharged from hospital, ate dinner, and then had a few dark maroon stools right after.? patient was concerned for her GI bleed and presented to the hospital further workup. ? 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 Labs initially revealed WBC 6.5, Hgb 9.1, Hct 28.5, Na+ 139, K+ 4.0, BUN 29, Creatinine 1.10. BG ranging 111-115, Liver enzymes are normal. UA shown 1+ blood, 1+ leukocytes, 51-100 urine WBC. Urine culture was obtained and is pending. GI was reconsulted. On examination today patient is alert and oriented x3, lying in the bed. VSS, he is afebrile, and currently on room air.? He denies any nausea, vomiting, diarrhea, abdominal pain, shortness a breath, chest pain.Repeat H/H showing continued drop with Hgb 7.8/ Hct 24.6. GI plans to get a GI bleed nuclear medicine study. We will continue to monitor H&H and will give blood when indicated. 05/15/23: On examination patient is alert oriented x3, sitting up in the bed. He denies any nausea, vomiting, diarrhea, abdominal pain, shortness a breath, chest pain. He states that he has not had any more bowel movements since he has b
[2023-05-15] MEDS: FLUTICASONE/SALMETEROL 115-21 MCG INHALER 1 PUFF 2 PUFF INHALATION ×2 (08:52→21:22)
[2023-05-15] MEDS: GABAPENTIN 300 MG CAPSULE 600 MG PO (09:15)
[2023-05-15] MEDS: ATORVASTATIN 20 MG TABLET PO (09:15)
[2023-05-15] MEDS: BRIMONIDINE TARTRATE 0.2% OP SOLN 5 ML BTL 1 DROP EACH EYE ×2 (09:16→20:22)
[2023-05-15] MEDS: buPROPion HCL SR (12 HR) 150 MG TAB PO ×2 (09:16→20:22)
[2023-05-15] MEDS: DOXAZOSIN MESYLATE 4 MG TABLET PO (09:16)
[2023-05-15] MEDS: TIMOLOL MALEATE 0.5% OP SOLN 5 ML BOTTLE 1 DROP EACH EYE ×2 (09:16→20:22)
[2023-05-15] MEDS: PANTOPRAZOLE SODIUM IV 40 MG VIAL IV PUSH ×2 (09:16→20:21)
--- NOTE | 2023-05-15 11:42 | WPDGIPROGNO ---
Progress Note: A&P Assessment and Plan (1) Acute blood loss anemia: Code(s): D62 - Acute posthemorrhagic anemia Status: Acute Assessment and Plan: hopefully bleeding stopped again pending GIB scan if recurrent bleeding probably will need surgical evaluation (recent colonoscopy found stigmata of previous bleeding right colon ? diverticula) or even interventional radiology +/- repeat colonoscopy (2) Diverticular hemorrhage: Code(s): K57.31 - Diverticulosis of large intestine without perforation or abscess with bleeding Status: Acute (3) Emphysema/COPD: Code(s): J43.9 - Emphysema, unspecified Status: Acute Subjective Date/time seen: 05/15/23 11:42 Interval history: he has not had any more BM since admission (about 24 hours) received blood transfusion he is comfortable and hungry Review of Systems Review of Systems: All systems reviewed & are unremarkable except as noted in HPI and below Exam Const: General: comfortable and no acute distress HENMT: Face/Nose/Sinus: Normal nares present Eyes: General: appearance normal, both eyes and all related structures Neck: Neck: supple Resp: Auscultation: clear to auscultation bilaterally Cardio: Rate: regular rate Rhythm: regular rhythm GI: Inspection: non-distended GI Palp: Yes Soft to palpation and No Tenderness to palpation present (GI) Auscultation: normal bowel sounds Skin: General skin exam: no rashes or lesions noted Neuro: Speech: normal speech Motor exam (neuro): 5/5 motor strength present throughout Extrem: General: normal to inspection Psych: Mental Status: mental status grossly normal Objective Data Vital Signs Vital Signs: Vital Signs - 24 hr 05/14/23 12:16 05/14/23 12:28 05/14/23 12:30 Temperature 98.0 F Pulse Rate 80 72 Respiratory Rate 16 Blood Pressure 115/69 Pulse Oximetry 96 Oxygen Delivery Room Air 05/14/23 16:20 05/14/23 16:00 05/14/23 17:11 Temperature 97.6 F Pulse Rate 79 78 88 Respiratory Rate 18 16 Blood Pressure 108/56 L 144/65 H Pulse Oximetry 96 99 Oxygen Delivery 05/14/23 17:59 05/14/23 18:14 05/14/23 19:14 Temperature 97.1 F L 97.1 F L 97.1 F L Pulse Rate 83 81 78 Respiratory Rate 16 16 16 Blood Pressure 109/58 L 90/55 L 110/62 Pulse Oximetry 97 100 98 Oxygen Delivery 05/14/23 20:14 05/14/23 21:14 05/14/23 20:00 Temperature 97.2 F L 97.4 F L 97.2 F L Pulse Rate 83 80 83 Respiratory Rate 17 16 17 Blood Pressure 135/68 115/59 L 135/68 Pulse Oximetry 97 94 97 Oxygen Delivery 05/14/23 21:53 05/15/23 00:00 05/14/23 20:00 Temperature 97.6 F 98.3 F Pulse Rate 76 90 78 Respiratory Rate 15 14 Blood Pressure 111/56 L 118/49 L Pulse Oximetry 94 96 Oxygen Delivery 05/15/23 00:00 05/14/23 20:00 05/15/23 04:00 Temperature Pulse Rate 89 89 86 Respiratory Rate 14 Blood Pressure Pulse Oximetry 96 Oxygen Delivery Room Air 05/14/23 20:43 05/15/23 04:00 05/15/23 08:34 Temperature 97.7 F 98.3 F Pulse Rate 91 86 Respiratory Rate 14 17 Blood Pressure 122/73 138/68 Pulse Oximetry 96 96 96 Oxygen Delivery Room Air 05/15/23 08:53 Temperature Pulse Rate Respiratory Rate Blood Pressure Pulse Oximetry 96 Oxygen Delivery Room Air Intake/Output Intake/Output: Intake & Output 05/12/23 05/13/23 05/14/23 05/15/23 23:59 23:59 23:59 23:59 Intake Total 2782 1190 Output Total 200 Balance 2782 990 Meds/Results Medications: Active Medications Generic Name Dose Route Start Last Admin Trade Name Freq PRN Reason Stop Dose Admin Acetaminophen 650 mg 05/14/23 09:03 Acetaminophen 325 Mg Tablet PO Q4H PRN Mild Pain (1-3) or Fever Albuterol 2 puff 05/14/23 09:12 Albuterol Sulfate (*Sp) Aerosol 1 Puff INHALATION PRN PRN Wheezing Atorvastatin Calcium 20 mg 05/15/23 09:00 05/15/23 09:15 Atorvastatin 20 Mg Tablet PO 20 mg DAILY JAMISON Adminis
--- NOTE | 2023-05-15 16:08 | PM.CNGS ---
Assessment and Plan Assessment and plan (1) Gastrointestinal hemorrhage with melena: Code(s): K92.1 - Melena Status: Acute Assessment and Plan: Although this bleeding has been going on now for about 11 or 12 days, it is apparently fairly slow bleeding as he has only required 1 unit of packed cells and I believe that was yesterday. No reported bowel movements or further bleeding yesterday tonight or today. Agree with tagged red cell scan to be done tomorrow although if patient is not currently bleeding this will be negative. Should he continue to have bleeding, would recommend transfer to tertiary care facility where mesenteric angiography could be done and possibly angiographic embolization to stop the bleeding be performed. I will follow along with you but doubt surgical intervention will be needed. (2) Colon, diverticulosis: Code(s): K57.30 - Diverticulosis of large intestine without perforation or abscess without bleeding Status: Acute Assessment and Plan: Noted on colonoscopy and CT scan. Numerous diverticuli throughout the entire colon but predominantly in the sigmoid. (3) Acute blood loss anemia: Code(s): D62 - Acute posthemorrhagic anemia Status: Acute Assessment and Plan: Received 1 unit packed cells yesterday. H&H improved as expected afterward. History of Present Illness Consult details Consult date: 05/15/23 Reason for consult: other (Lower GI bleeding) Requesting physician: Robert Marte MD Narrative: Patient is an 87-year-old gentleman who has had trouble with constipation. During the 1st week of April, he received an enema for this with results. However the following day began having maroon-colored stools and lower GI bleeding. He went to the emergency room at [facility] a couple of times and I believe the last time he was diagnosed with colitis. The bleeding persisted and, after talking with his primary care physician, he came to the emergency room and [facility] on 05/09/2023. Even though he had reportedly been having multiple more in stools, his hemoglobin and hematocrit were normal. Rectal exam did show evidence of bloody bowel movement. He was admitted and Gastroenterology was consulted per Dr. Kenny. On 05/11/2023 Dr. Kenny performed a colonoscopy. No active bleeding source was found but there was clot in the transverse colon and his feeling was that the source was right colon diverticula. Patient was watched 05/11 and was doing well on 05/12. He was discharged on 05/12 only to return in the evening of 05/13/2023 with recurrent bleeding. His H&H had still not dropped significantly. He was admitted and evaluated. He did drop his hemoglobin to 7.3 and I believe was transfused 1 unit of packed cells yesterday. He had an improvement in his H&H following this transfusion. I was asked to see the patient regarding his lower GI bleeding. He is scheduled for a nuclear medicine tagged red blood cell scan for tomorrow morning. Patient and nursing report no bloody stools yesterday last night or this morning. Patient denies any abdominal pain. No complaints at present. Review of Systems Review of Systems: All systems reviewed & are unremarkable except as noted in HPI and below (HPI and those items noted below) Constitutional: Constitutional: Denies chills and Denies fever(s) Cardiovascular: Cardiovascular: Denies chest pain, Denies diaphoresis, Denies dyspnea and Denies paroxysmal nocturnal dyspnea Respiratory: Respiratory: Denies chest congestion, Denies cough and Denies dyspnea Integumentary/Breasts: Skin/Breast: Denies lesions and Denies rash [facility] Past Medical History Medical History Acute blood loss anemia Colon, diverticulosis Diverticular hemorrhage Emphysema/COPD Rectal bleeding Sleep apnea Social History Social History Camelia
[2023-05-15] MEDS: LATANOPROST 0.005% OP SOLN 2.5 ML BTL 1 DROP RIGHT EYE (20:22)
[2023-05-16] VITALS (9 sets, daily range): BP systolic 110–136; BP diastolic 50–60; PULSE 70–82; RESP 16; TEMP 36.4–36.6; O2SAT 93–96
[2023-05-16] MEDS: SODIUM CHLORIDE 0.9% IV 1,000 ML 100 ML IV CONT ×2 (04:49→19:46)
[2023-05-16 06:09] LABS: Hematocrit 27.7 % (42.0-52.0); Hemoglobin 8.7 g/dL (14.0-18.0); Mean Corpuscular HGB Conc 31.4 g/dl (32-36); Mean Corpuscular Hemoglobin 32.7 pg (26-34); Mean Corpuscular Volume 104.1 fl (80-100); Mean Platelet Volume 9.2 fl (7.4-10.4); Platelet Count Result 194 k/mm3 (150-375); Red Blood Count 2.66 M/mm3 (4.6-6.20); Red Cell Distribution Width 15.4 % (11.5-14.5)
[2023-05-16 06:33] LABS: Alanine Aminotransferase 12 U/L (6-50); Albumin Level 2.8 g/dL (3.5-5.1); Alkaline Phosphatase 76 U/L (38-126); Anion Gap 4 mmol/L (8-16); Aspartate Amino Transferase 21 U/L (17-59); Bilirubin,Total 0.5 mg/dL (0.2-1.3); Blood Urea Nitrogen 8 mg/dL (9-20); Calcium 8.3 mg/dL (8.4-10.2); Carbon Dioxide 25 mmol/L (22-30); Chloride 109 mmol/L (98-107); Estimated CRCL calculation 49 ml/min; Estimated Glomerular Filt Rate > 60; Glucose 93 mg/dL (65-110); Potassium 3.5 mmol/L (3.4-5.0); Sodium 138 mmol/L (137-145)
[2023-05-16] MEDS: FLUTICASONE/SALMETEROL 115-21 MCG INHALER 1 PUFF 2 PUFF INHALATION ×2 (08:17→20:02)
[2023-05-16] MEDS: buPROPion HCL SR (12 HR) 150 MG TAB PO ×2 (09:42→19:42)
[2023-05-16] MEDS: ATORVASTATIN 20 MG TABLET PO (09:42)
[2023-05-16] MEDS: PANTOPRAZOLE SODIUM IV 40 MG VIAL IV PUSH ×2 (09:43→19:42)
[2023-05-16] MEDS: DOXAZOSIN MESYLATE 4 MG TABLET PO (09:43)
[2023-05-16] MEDS: GABAPENTIN 300 MG CAPSULE 600 MG PO (09:43)
[2023-05-16] MEDS: TIMOLOL MALEATE 0.5% OP SOLN 5 ML BOTTLE 1 DROP EACH EYE ×2 (09:43→19:43)
[2023-05-16] MEDS: BRIMONIDINE TARTRATE 0.2% OP SOLN 5 ML BTL 1 DROP EACH EYE ×2 (09:53→19:43)
--- NOTE | 2023-05-16 10:26 | P.PNIM_ITS ---
Progress Note: A&P Assessment and Plan (1) Acute GI bleeding: Code(s): K92.2 - Gastrointestinal hemorrhage, unspecified Status: Acute Assessment and Plan: 05/14/23: * Patient had a few dark maroon stools at home after eating dinner, came back for re-evaluation of GI bleeding. * Patient recently discharged on 05/12/23 for same symptoms. GI seen and did colonoscopy which shown a clot in the transverse colon from a bleeding diverticula, no active bleed was seen. He was discharged with an H/H of 10.1/31.2 with plans to get a repeat CBC in 1 week and follow up with PCP. * H/H trending downward, initial H/H 9.1/28.5, now down to 7.8/24.6. * Continue to trend labs, give blood when indicated. * GI consulted * Plan for GI bleeding nuclear medicine scan * BUN elevated to 29 * Patient on 40 mg Protonix BID 05/15/2023: * Patient was given 1 unit of blood yesterday * Hemoglobin today is 9.5, hematocrit 30.2 * Gastroenterology following * BUN 14 today * Continue with Protonix b.i.d. * Continue to trend labs * Continue cardiac telemetry monitoring * Plan for GI bleeding nuclear medicine scan today 05/16/23: * H/H stable 8.7/27.7 * Gastroenterology following * BUN 8 * Continue cardiac monitoring * Plan for GI bleeding NM scan today as this was not preformed yesterday. * General surgery was consulted by GI service and they suggest transfer to another facility where mesenteric angiography could be done and possible angiographic embolization to stop the bleeding if and when it reoccurs. No surgical intervention warranted at this time * Continue to trend labs (2) Diverticular hemorrhage: Code(s): K57.31 - Diverticulosis of large intestine without perforation or abscess with bleeding Status: Acute Assessment and Plan: see above (3) Rectal bleeding: Code(s): K62.5 - Hemorrhage of anus and rectum Status: Acute Assessment and Plan: 05/14/23: * Patient reporting melena stools at home. * Patient states he has not had any bloody stools since then. * see above plan of care. 05/15/2023: * Patient has had no more bowel movements since this admission. * See plan of care and treatment up above 05/16/23: * No BM overnight, H/H stable * continue with current treatment plan (4) Emphysema/COPD: Code(s): J43.9 - Emphysema, unspecified Status: Acute Assessment and Plan: 05/14/23: * Continue albuterol treatments as needed * Patient currently on room air, no acute respiratory distress. 05/15/2023: * No change to current treatment plan Time Spent With Patient Time with patient: 15 - 25 minutes Subjective Date/time seen: 05/16/23 10:26 Interval history: 05/14/23: This is a 87 year old male with a significant past medical history of acute blood loss anemia, colon diverticulosis, diverticular hemorrhage, rectal bleeding, emphysema / COPD, sleep apnea who presented to the ER for evaluation of dark maroon stools. Patient was just seen, treated and discharged on 05/12/23 for the same symptoms.? he states that he went home after being discharged from hospital, ate dinner, and then had a few dark maroon stools right after.? patient was concerned for her GI bleed and presented to the hospital further workup. ? Work up in the ER included a CT of the abdomen/pelvis which shown no acute intra-abdominal/pelvic process, nonobstructing left nephrolithiasis, diverticulosis, small sliding hiatal hernia, emphysema with peripheral chronic interstitial fibrosis versus chronic infection, mild diffuse bladder wall th
--- NOTE | 2023-05-16 10:26 | PM.IMPN ---
Progress Note: A&P Assessment and Plan (1) Acute GI bleeding: Code(s): K92.2 - Gastrointestinal hemorrhage, unspecified Status: Acute Assessment and Plan: 05/14/23: Patient had a few dark maroon stools at home after eating dinner, came back for re-evaluation of GI bleeding. Patient recently discharged on 05/12/23 for same symptoms. GI seen and did colonoscopy which shown a clot in the transverse colon from a bleeding diverticula, no active bleed was seen. He was discharged with an H/H of 10.1/31.2 with plans to get a repeat CBC in 1 week and follow up with PCP. H/H trending downward, initial H/H 9.1/28.5, now down to 7.8/24.6. Continue to trend labs, give blood when indicated. GI consulted Plan for GI bleeding nuclear medicine scan BUN elevated to 29 Patient on 40 mg Protonix BID 05/15/2023: Patient was given 1 unit of blood yesterday Hemoglobin today is 9.5, hematocrit 30.2 Gastroenterology following BUN 14 today Continue with Protonix b.i.d. Continue to trend labs Continue cardiac telemetry monitoring Plan for GI bleeding nuclear medicine scan today 05/16/23: H/H stable 8.7/27.7 Gastroenterology following BUN 8 Continue cardiac monitoring Plan for GI bleeding NM scan today as this was not preformed yesterday. General surgery was consulted by GI service and they suggest transfer to another facility where mesenteric angiography could be done and possible angiographic embolization to stop the bleeding if and when it reoccurs. No surgical intervention warranted at this time Continue to trend labs (2) Diverticular hemorrhage: Code(s): K57.31 - Diverticulosis of large intestine without perforation or abscess with bleeding Status: Acute Assessment and Plan: see above (3) Rectal bleeding: Code(s): K62.5 - Hemorrhage of anus and rectum Status: Acute Assessment and Plan: 05/14/23: Patient reporting melena stools at home. Patient states he has not had any bloody stools since then. see above plan of care. 05/15/2023: Patient has had no more bowel movements since this admission. See plan of care and treatment up above 05/16/23: No BM overnight, H/H stable continue with current treatment plan (4) Emphysema/COPD: Code(s): J43.9 - Emphysema, unspecified Status: Acute Assessment and Plan: 05/14/23: Continue albuterol treatments as needed Patient currently on room air, no acute respiratory distress. 05/15/2023: No change to current treatment plan Time Spent With Patient Time with patient: 15 - 25 minutes Subjective Date/time seen: 05/16/23 10:26 Interval history: 05/14/23: This is a 87 year old male with a significant past medical history of acute blood loss anemia, colon diverticulosis, diverticular hemorrhage, rectal bleeding, emphysema / COPD, sleep apnea who presented to the ER for evaluation of dark maroon stools. Patient was just seen, treated and discharged on 05/12/23 for the same symptoms.? he states that he went home after being discharged from hospital, ate dinner, and then had a few dark maroon stools right after.? patient was concerned for her GI bleed and presented to the hospital further workup. ? 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 Labs initially revealed WBC 6.5, Hgb 9.1, Hct 28.5, Na+ 139, K+ 4.0, BUN 29, Creatinine 1.10. BG ranging 111-115, Liver enzymes are normal. UA shown 1+ blood, 1+ leukocytes, 51-100 urine WBC. Urine culture was obtained and is pending. GI was reconsulted. On examination today patient is alert and oriented x3, lying in the bed. VSS, he is af
--- NOTE | 2023-05-16 15:40 | WPDGIPROGNO ---
Progress Note: A&P Assessment and Plan (1) Acute blood loss anemia: Code(s): D62 - Acute posthemorrhagic anemia Status: Acute Assessment and Plan: GIB scan negative last BM almost clear h/h stable since blood transfusion it seems that bleeding already stopped, if recurrent episode then will need interventional radiology evaluation at tertiary hospital (2) Diverticular hemorrhage: Code(s): K57.31 - Diverticulosis of large intestine without perforation or abscess with bleeding Status: Acute Assessment and Plan: recent colonoscopy with old blood in Rt Colon (3) Emphysema/COPD: Code(s): J43.9 - Emphysema, unspecified Status: Acute Subjective Date/time seen: 05/16/23 15:40 Interval history: last BM today only with minimal trace of blood, he is doing ok Review of Systems Review of Systems: All systems reviewed & are unremarkable except as noted in HPI and below Exam Const: General: comfortable and no acute distress HENMT: Face/Nose/Sinus: Normal nares present Eyes: General: appearance normal, both eyes and all related structures Neck: Neck: supple Resp: Auscultation: clear to auscultation bilaterally Cardio: Rate: regular rate Rhythm: regular rhythm GI: Inspection: non-distended GI Palp: Yes Soft to palpation and No Tenderness to palpation present (GI) Auscultation: normal bowel sounds Skin: General skin exam: no rashes or lesions noted Neuro: Speech: normal speech Motor exam (neuro): 5/5 motor strength present throughout Extrem: General: normal to inspection Psych: Mental Status: mental status grossly normal Objective Data Vital Signs Vital Signs: Vital Signs - 24 hr 05/15/23 17:41 05/15/23 16:00 05/15/23 19:57 Temperature 97.9 F Pulse Rate 70 67 74 Respiratory Rate 17 18 Blood Pressure 114/55 L Pulse Oximetry 95 96 Oxygen Delivery Room Air 05/15/23 20:26 05/15/23 20:00 05/16/23 00:48 Temperature 98.2 F 97.8 F Pulse Rate 74 75 82 Respiratory Rate 16 16 Blood Pressure 123/53 L 110/50 L Pulse Oximetry 94 95 Oxygen Delivery 05/16/23 00:00 05/16/23 04:00 05/16/23 04:38 Temperature 97.8 F Pulse Rate 82 81 74 Respiratory Rate 16 Blood Pressure 130/55 L Pulse Oximetry 95 Oxygen Delivery 05/16/23 08:00 05/16/23 08:00 05/16/23 09:45 Temperature 97.7 F Pulse Rate 73 76 Respiratory Rate 16 Blood Pressure 128/58 L Pulse Oximetry 94 Oxygen Delivery Room Air 05/16/23 12:00 Temperature Pulse Rate 77 Respiratory Rate Blood Pressure Pulse Oximetry Oxygen Delivery Intake/Output Intake/Output: Intake & Output 05/13/23 05/14/23 05/15/23 05/16/23 23:59 23:59 23:59 23:59 Intake Total 2782 2910 1390 Output Total 900 1100 Balance 2782 2009 290 Meds/Results Medications: Active Medications Generic Name Dose Route Start Last Admin Trade Name Freq PRN Reason Stop Dose Admin Acetaminophen 650 mg 05/14/23 09:03 Acetaminophen 325 Mg Tablet PO Q4H PRN Mild Pain (1-3) or Fever Albuterol 2 puff 05/14/23 09:12 Albuterol Sulfate (*Sp) Aerosol 1 Puff INHALATION PRN PRN Wheezing Atorvastatin Calcium 20 mg 05/15/23 09:00 05/16/23 09:42 Atorvastatin 20 Mg Tablet PO 20 mg DAILY JAMISON Administration Brimonidine Tartrate 1 drop 05/14/23 09:00 05/16/23 09:53 Brimonidine Tartrate 0.2% Op Soln 5 Ml Btl EACH EYE 1 drop Q12HR JAMISON Administration Bupropion HCl 150 mg 05/15/23 09:00 05/16/23 09:42 Bupropion Hcl Sr (12 Hr) 150 Mg Tab PO 150 mg Q12HR JAMISON Administration Doxazosin Mesylate 4 mg 05/15/23 09:00 05/16/23 09:43 Doxazosin Mesylate 4 Mg Tablet PO 4 mg DAILY JAMISON Administration Gabapentin 600 mg 05/15/23 09:00 05/16/23 09:43 Gabapentin 300 Mg Capsule PO 600 mg DAILY JAMISON Administration Sodium Chloride 1,000 mls @ 100 mls/hr 05/14/23 09:05 05/16/23 04:49 Normal Saline Iv IV CONT 100
[2023-05-16] MEDS: LATANOPROST 0.005% OP SOLN 2.5 ML BTL 1 DROP RIGHT EYE (22:06)
[2023-05-17] VITALS: BP 116/51; PULSE 75; PULSE 78; RESP 13; TEMP 36.5; O2SAT 94
[2023-05-17 04:00] VITALS: BP 123/63; PULSE 75; PULSE 76; RESP 16; TEMP 36.6; O2SAT 95
[2023-05-17 05:35] LABS: Hematocrit 27.9 % (42.0-52.0); Hemoglobin 9.1 g/dL (14.0-18.0); Mean Corpuscular HGB Conc 32.6 g/dl (32-36); Mean Corpuscular Hemoglobin 33.3 pg (26-34); Mean Corpuscular Volume 102.2 fl (80-100); Mean Platelet Volume 9.1 fl (7.4-10.4); Platelet Count Result 187 k/mm3 (150-375); Red Blood Count 2.73 M/mm3 (4.6-6.20); Red Cell Distribution Width 14.8 % (11.5-14.5); White Blood Count 4.7 K/mm3 (4.5-10.0)
[2023-05-17 05:51] LABS: Alanine Aminotransferase 12 U/L (6-50); Alkaline Phosphatase 82 U/L (38-126); Anion Gap 6 mmol/L (8-16); Aspartate Amino Transferase 22 U/L (17-59); Bilirubin,Total 0.6 mg/dL (0.2-1.3); Blood Urea Nitrogen 8 mg/dL (9-20); Carbon Dioxide 23 mmol/L (22-30); Chloride 108 mmol/L (98-107); Estimated CRCL calculation 49 ml/min; Estimated Glomerular Filt Rate > 60; Glucose 87 mg/dL (65-110); Potassium 3.7 mmol/L (3.4-5.0); Sodium 137 mmol/L (137-145)
[2023-05-17] MEDS: SODIUM CHLORIDE 0.9% IV 1,000 ML 100 ML IV CONT (06:33)
[2023-05-17 07:10] VITALS: PULSE 80; RESP 18; O2SAT 94
[2023-05-17] MEDS: FLUTICASONE/SALMETEROL 115-21 MCG INHALER 1 PUFF 2 PUFF INHALATION (07:10)
[2023-05-17 08:00] VITALS: BP 151/77; PULSE 84; PULSE 95; RESP 16; O2SAT 96
[2023-05-17] MEDS: GABAPENTIN 300 MG CAPSULE 600 MG PO (09:08)
[2023-05-17] MEDS: PANTOPRAZOLE SODIUM IV 40 MG VIAL IV PUSH (09:08)
[2023-05-17] MEDS: buPROPion HCL SR (12 HR) 150 MG TAB PO (09:09)
[2023-05-17] MEDS: BRIMONIDINE TARTRATE 0.2% OP SOLN 5 ML BTL 1 DROP RIGHT EYE (09:09)
[2023-05-17] MEDS: TIMOLOL MALEATE 0.5% OP SOLN 5 ML BOTTLE 1 DROP RIGHT EYE (09:09)
[2023-05-17] MEDS: ATORVASTATIN 20 MG TABLET PO (09:09)
[2023-05-17] MEDS: DOXAZOSIN MESYLATE 4 MG TABLET PO (09:09)
--- NOTE | 2023-05-17 10:25 | PM.DS ---
DS: Admitting Diagnosis Discharge Date 05/17/23 Admitting Diagnosis GI hemorrhage Diverticular hemorrhage rectal bleeding Emphysema/COPD DS: Discharge Diagnosis Discharge Diagnosis (1) Acute GI bleeding: Code(s): K92.2 - Gastrointestinal hemorrhage, unspecified Status: Acute (2) Diverticular hemorrhage: Code(s): K57.31 - Diverticulosis of large intestine without perforation or abscess with bleeding Status: Acute (3) Rectal bleeding: Code(s): K62.5 - Hemorrhage of anus and rectum Status: Acute (4) Emphysema/COPD: Code(s): J43.9 - Emphysema, unspecified Status: Acute DS: Summary Hospital Course Reason for hospitalization: GI bleed Hospital Course: This is an 87 year old male who presented to the ER for evaluation of dark maroon stools. Patient was just seen, treated and discharged on 05/12/23 for the same symptoms.? he states that he went home after being discharged from hospital, ate dinner, and then had a few dark maroon stools right after.? patient was concerned for her GI bleed and presented to the hospital further workup. ? 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 H/H were stable. GI was reconsulted. He had a nuclear medicine GI bleed scan today which was normal, showing no active bleed. Patient has not had anymore episodes of bleeding. VSS, he is afebrile, currently on room air. He is stable for discharge at this time. If he was to have any more bleeding it would benefit him to go to a hospital with interventional radiology where mesenteric angiography can be preformed. Patient will need to follow up with PCP in 1 week. Patient agreeable to this plan of care should he rebleed. Final diagnosis: GI bleed Status at Discharge Cognitive/behavioral status at discharge: Alert and oriented x3 Functional status at discharge: independent ambulation Overall status at discharge: patient is progressing back to baseline Time Spent with Patient Time attestation: Total time spent providing and/or coordinating discharge services: Time spent: Greater than 30 minutes Exam Narrative: General: In no acute distress, well nourished Head: atraumatic, no encephalopathy Eyes: EOMI, PERRLA, sclera clear ENT: moist mucous membranes, nasal passages clear Neck: supple, no JVD, no adenopathy, trachea midline Cardiac: Normal S1 and S2. No murmur, gallops or friction rubs, peripheral pulses intact. Respiratory: Lungs clear to auscultation, no adventitious lung sounds Gastrointestinal: soft, non-distended, non-tender, normoactive bowel sounds. No BM since being readmitted : voiding without difficulty. Extremities: moves all extremities well, no edema, good ROM Skin: clean, dry, intact. No wounds or lesions. Pale Neuro: Alert and oriented x4, cranial nerves intact, no neuro deficits. Psych: normal mood, normal affect, interactive DS: Data Data Completed and Pending Completed studies during hospitalization: CT of abdomen/pelvis NM GI bleeding scan Pending studies at discharge: none Labs on day of discharge: Labs from last 24 hours 05/17/23 05:18 WBC 4.7 RBC 2.73 L Hgb 9.1 L Hct 27.9 L MCV 102.2 H MCH 33.3 MCHC 32.6 RDW 14.8 H Plt Count 187 MPV 9.1 Sodium 137 Potassium 3.7 Chloride 108 H Carbon Dioxide 23 Anion Gap 6 L BUN 8 L Creatinine 1.00 Estim Creat Clear Calc 49 Estimated GFR > 60 Glucose 87 Calcium 8.0 L Total Bilirubin 0.6 AST 22 ALT 12 Alkaline Phosphatase 82 Total Protein 5.0 L Albumin 3.0 L Procedures/Treatments: GI bleeding scan NM, no intervention Discharge Plan Discharge Attending ph
== END 2023-05-17 10:50 | disposition home or self-care (01) ==
LOC: ANHED 05-14 01:10 → ANH2MED 05-14 15:01 → ANH3MEDSUR 05-18 10:37
PROVIDERS: Internal Medicine Gastroenterology; Nurse Practitioner Acute Care; Admitting Provider Internal Medicine; Emergency Provider Emergency Medicine; PCP Internal Medicine; Visit Provider Student in an Organized Health Care Education/Training Program
DX: D62 Acute posthemorrhagic anemia (principal); K57.31 Diverticulosis of large intestine without perforation or abscess with bleeding; J43.9 Emphysema, unspecified; N20.0 Calculus of kidney; J44.9 Chronic obstructive pulmonary disease, unspecified; I45.10 Unspecified right bundle-branch block; E78.5 Hyperlipidemia, unspecified; G47.30 Sleep apnea, unspecified; K21.9 Gastro-esophageal reflux disease without esophagitis; Z79.82 Long term (current) use of aspirin; Z79.51 Long term (current) use of inhaled steroids; Z87.891 Personal history of nicotine dependence; Z79.899 Other long term (current) drug therapy
CPT/HCPCS: 36415; 36430; 74177; 78278; 80053; 81001; 82948; 83605; 83690; 83735; 84484; 85014; 85018; 85025; 85027; 85610; 85730; 86850; 86900; 86901; 86923; 87086; 87088; 93005; 94640; 96361; 96374; 96375; 96376; 99285; A9270; A9560; C9113; G0378; J2405; J7030; J7050; P9016; Q9967

== ENCOUNTER 2024-05-24 16:52 | Observation (INO) | payer MEDICARE, SELFPAY ==
--- NOTE | ~2024-05-24 | XR_ITS ---
EXAMINATION: XR chest 2V Exam Date/Time: 05/24/2024 17:30 FLAG DECORATOR HISTORY: CP Comparison: 12/07/2005. RESULT: Lines, tubes, and devices: None. Lungs and pleura: Senescent and emphysematous change. Hazy subsegmental airspace disease in the left lower lobe. Minimal streaky bibasilar atelectasis/scar. Calcified granulomas. Right apical pleural t hickening. Cardiomediastinal silhouette: Stable. Aortic ectasia. Dilated central pulmonary arteries as can be s een with pulmonary arterial hypertension. Other: No acute osseous or upper abdominal finding. IMPRESSION: Subsegmental left lower lobe atelectasis/consolidation. Reviewed, dictated and finalized at location K. DECORATOR
--- NOTE | 2024-05-24 16:53 | ECG_ITS ---
Test Date: 2024-05-24 17:02:11 Measurements Intervals [place] Rate: 84 P: 87 SD: 218 QRS: 83 QRSD: 174 T: 35 QT: 405 QTc: 482 Interpretive Statements SINUS RHYTHM WITH FIRST DEGREE AV BLOCK RIGHT BUNDLE BRANCH BLOCK [120+ ms QRS DURATION, UPRIGHT V1, 40+ ms S IN I/aVL/V4/V5/V6] MARKED ST DEPRESSION, CONSIDER SUBENDOCARDIAL INJURY [0.2+ mV ST DEPRESSION] No previous ECG available for comparison Electronically Signed On 05-25-2024 17:05:17 [employer] by Angel Borjas M.D.
[2024-05-24 16:54] VITALS: BP 165/83; PULSE 86; RESP 20; TEMP 36.2; O2SAT 95
--- NOTE | 2024-05-24 17:20 | ED.SOB ---
HPI - SOB/Dyspnea General Chief Complaint: Shortness of Breath/Dyspnea <Palmira Ireland PA-C - Last Filed: 05/28/24 17:29> Stated Complaint: sob, cp <Palmira Ireland PA-C - Last Filed: 05/28/24 17:29> Time Seen by Provider: 05/24/24 17:20 <Palmira Ireland PA-C - Last Filed: 05/28/24 17:29> Focused HPI: This is a 88 year old male that presents to the ER for chest pain. Reports he woke up with this. Also reports shortness of breath. Reports a cough. Reports fevers. GENERAL: Elderly, well-nourished, and in no acute distress. HEAD: Normocephalic, atraumatic. CHEST: No respiratory distress. Expiratory wheezing HEART: Regular rate and rhythm.? NEURO: ?Alert and oriented x3. Patient screened in triage and initial orders placed.? ?Additional care and disposition to be based upon?diagnostic testing and treatment. <Palmira Ireland PA-C - Last Filed: 05/28/24 17:29> History of Present Illness HPI Narrative: The year old gentleman who presents emergency department with chief complaint of chest pain cough this been productive of white sputum the patient has had a low-grade fever the patient reports that the chest pain in his chest has improved reports very mild <Moshe Cooper MD - Last Filed: 05/25/24 01:37> Related Data Home Medications: Home Medications ?Medication ?Instructions ?Recorded ?Confirmed ?Last Taken ?Type atorvastatin 20 mg tablet 20 mg PO DAILY 10/16/21 05/25/24 05/07/23 21:00 History budesonide-formoterol HFA 160 2 puff inhalation BID 10/16/21 05/25/24 04/30/23 21:00 History mcg-4.5 mcg/actuation aerosol inhaler (Symbicort) bupropion HCl 150 mg tablet,12 hr 150 mg PO BID 10/16/21 05/25/24 05/07/23 21:00 History sustained-release doxazosin 4 mg tablet 4 mg PO DAILY 10/16/21 05/25/24 05/07/23 08:00 History gabapentin 300 mg capsule 600 mg PO DAILY 10/16/21 05/25/24 05/07/23 08:00 History isosorbide mononitrate 30 mg 30 mg PO DAILY 10/16/21 05/25/24 05/07/23 08:00 History tablet,extended release 24 hr Aspir-81 81 mg PO DAILY 05/09/23 05/25/24 05/07/23 08:00 History albuterol sulfate 90 mcg/actuation 2 puff inhalation PRN PRN Wheezing 05/09/23 05/25/24 Unknown History aerosol inhaler brimonidine 0.2 %-timolol 0.5 % 1 drp RIGHT EYE .COMPLEX 05/09/23 05/26/24 05/09/23 20:00 History eye drops (Combigan) latanoprost 0.005 % eye drops 1 drp RIGHT EYE HS 05/09/23 05/25/24 05/09/23 20:00 History omeprazole 40 mg capsule,delayed 40 mg PO DAILY 05/25/24 05/26/24 Unknown History release <Palmira Ireland PA-C - Last Filed: 05/28/24 17:29> Allergies/Adverse Reactions: Allergies Allergy/AdvReac Type Severity Reaction Status Date / Time No Known Allergies Allergy Mild Verified 05/14/23 00:03 <Palmira Ireland PA-C - Last Filed: 05/28/24 17:29> Review of Systems Review of Systems: A 10 system review of systems was completed on the patient and is negative except for what is stated in the HPI. Nursing and ancillary documentation was reviewed. <Moshe Cooper MD - Last Filed: 05/25/24 01:37> [facility] Past Medical History Medical History: Medical History Diverticular hemorrhage Acute blood loss anemia Colon, diverticulosis Rectal bleeding Sleep apnea Emphysema/COPD <Palmira Ireland PA-C - Last Filed: 05/28/24 17:29> Family History Family History: Family History (Updated 05/25/24 @ 04:37 by Jaimie Roman RN) Other Adopted <Palmira Ireland PA-C - Last Filed: 05/28/24 17:29> Social History Social History: Social History Smoking status: Former smoker Alcohol intake: never Substance use: never Substance use type: does not use Do You Feel Safe in your Home?: Yes Lack of Transportation: No Lack of Food: Never True Current Housing: I Have Housing Concerned About Future Housing: No Difficulty Paying Gas/Electric Bills: No Difficulty Paying for Meds: No Currently Unemployed: No Education: Trade/Vocational Certificate Difficulty w/ Childcare or Family Care: No Spiritual care concerns: No <Palmira Ireland PA-C - Last Filed: 05/28/24 17:29> Exam Narrative: GENERAL: Well-appearing, well-nourished, and in no acute distress. HEAD: Normocephalic, atraumatic. EYES: PERRLA and EOMI. ENT: Nares clear, no rhinorrhea or epistaxis. Mucous membranes moist. NECK: Supple. CHEST: Clear to auscultation. No respiratory distress. HEART: Regular rate and rhythm. No murmur heard. Normal peripheral pulses. ABDOMEN: Soft, nontender, nondistended, normal active bowel sounds. EXTREMITIES: Normal range of motion. No edema. SKIN: Warm, dry, no rash. NEURO: No focal deficits. Alert and oriented x3. PSYCH: Normal mood and affect. <Moshe Cooper MD - Last Filed: 05/25/24 01:37> Course Vital Signs Vital signs: Vital Signs Temperature 97.1 F L 05/24/24 16:54 Pulse Rate 86 05/24/24 16:54 Respiratory Rate 20 05/24/24 16:54 Blood Pressure 165/83 H 05/24/24 16:54 Pulse Oximetry 95 05/24/24 16:54 Oxygen Delivery Room Air 05/24/24 16:54 Temperature 98.0 F 05/26/24 07:36 Pulse Rate 88 05/26/24 12:00 Respiratory Rate 18 05/26/24 08:56 Blood Pressure 126/71 05/26/24 07:36 Pulse Oximetry 95 05/26/24 08:47 Oxygen Delivery Room Air 05/26/24 10:05 <Palmira Ireland PA-C - Last Filed: 05/28/24 17:29> Vital Signs Temperature 97.1 F L 05/24/24 16:54 Pulse Rate 86 05/24/24 16:54 Respiratory Rate 20 05/24/24 16:54 Blood Pressure 165/83 H 05/24/24 16:54 Pulse Oximetry 95 05/24/24 16:54 Oxygen Delivery Room Air 05/24/24 16:54 Temperature 98.0 F 05/26/24 07:36 Pulse Rate 88 05/26/24 12:00 Respiratory Rate 18 05/26/24 08:56 Blood Pressure 126/71 05/26/24 07:36 Pulse Oximetry 95 05/26/24 08:47 Oxygen Delivery Room Air 05/26/24 10:05 <Moshe Cooper MD - Last Filed: 05/25/24 01:37> MDM - SOB/Dyspnea MDM Narrative Medical decision making narrative: Differential diagnosis includes ACS, pneumonia, CHF, Chest x-ray showed evidence of a developing infiltrate CBC and CMP were within normal limits 0 hour 3 hour and 6 hour troponins were negative in the emergency department BNP was 417 lipase was normal COVID flu and RSV were negative. Given the patient had evidence of pneumonia and also has had a fever at home and also productive cough the patient was empirically treated with Rocephin Zithromax for community-acquired pneumonia. Blood cultures were ordered the case was discussed with the hospitalist the patient will be admitted for observation. <Moshe Cooper MD - Last Filed: 05/25/24 01:37> Lab Data Result diagrams: 05/24/24 17:15 05/24/24 17:15 <Palmira Ireland PA-C - Last Filed: 05/28/24 17:29> Labs: Lab Results 05/24/24 05/24/24 05/24/24 Range/Units 17:15 17:44 22:39 WBC 6.1 (4.5-10.0) K/mm3 RBC 4.66 (4.6-6.20) M/mm3 Hgb 16.2 D (14.0-18.0) g/dL Hct 48.9 (42.0-52.0) % MCV 104.9 H (80-100) fl MCH 34.8 H (26-34) pg MCHC 33.1 (32-36) g/dl RDW 13.2 (11.5-14.5) % Plt Count 206 (150-375) k/mm3 MPV 9.1 (7.4-10.4) fl Immature Gran % (Auto) 0.7 H (0-0.5) % Neut % (Auto) 69.3 (45.5-73.1) % Lymph % (Auto) 16.8 L (18.3-44.2) % [place] % (Auto) 11.4 H (2.6-8.5) % Eos % (Auto) 1.5 (0-4.4) % Baso % (Auto) 0.3 (0.2-1.2) % Lymph # (Auto) 1.02 (0.9-3.2) K/mm3 [place] # (Auto) 0.7 H (0.1-0.6) K/mm3 Eos # (Auto) 0.1 (0-0.3) K/mm3 Baso # (Auto) 0.0 (0.0-0.1) K/mm3 Abs Immat Gran (auto) 0.04 H (0.00-0.031) K/mm3 Absolute Neuts (auto) 4.2 (1.3-6.7) K/mm3 Absolute Nucleated RBC 0.000 (0.0-0.012) K/mm3 Nucleated RBC % 0.0 (0.0-0.2) % PT 13.1 (11.1-14.7) Seconds INR 1.0 APTT 39.3 H (22.3-36.8) Seconds Sodium 140 (137-145) mmol/L Potassium 3.9 (3.4-5.0) mmol/L Chloride 106 (98-107) mmol/L Carbon Dioxide 31 H (22-30) mmol/L Anion Gap 3 L (4-12) mmol/L BUN 18 D (9-20) mg/dL Creatinine 1.10 (0.7-1.3) mg/dL Estim Creat Clear Calc 44 ml/min Estimated GFR > 60 (59 - ) Glucose 90 (65-110) mg/dL Calcium 9.4 (8.4-10.2) mg/dL Total Bilirubin 0.6 (0.2-1.3) mg/dL AST 25 (17-59) U/L ALT 16 (6-50) U/L Alkaline Phosphatase 169 H (38-126) U/L Troponin I < 0.012 < 0.012 (0.000-0.034) ng/mL NT-Pro-B Natriuret Pep 417 H (19.9-100) pg/mL Total Protein 8.0 (6.3-8.2) g/dL Albumin 4.4 (3.5-5.1) g/dL Lipase 36 (23-300) U/L Influenza A (RT-PCR) Negative (Negative) Influenza B (RT-PCR) Negative (Negative) RSV (RT-PCR) Negative (Negative) SARS-CoV-2 RNA (RT-PCR) Negative (Negative) 05/25/24 Range/Units 00:02 WBC (4.5-10.0) K/mm3 RBC (4.6-6.20) M/mm3 Hgb (14.0-18.0) g/dL Hct (42.0-52.0) % MCV (80-100) fl MCH (26-34) pg MCHC (32-36) g/dl RDW (11.5-14.5) % Plt Count (150-375) k/mm3 MPV (7.4-10.4) fl Immature Gran % (Auto) (0-0.5) % Neut % (Auto) (45.5-73.1) % Lymph % (Auto) (18.3-44.2) % [place] % (Auto) (2.6-8.5) % Eos % (Auto) (0-4.4) % Baso % (Auto) (0.2-1.2) % Lymph # (Auto) (0.9-3.2) K/mm3 [place] # (Auto) (0.1-0.6) K/mm3 Eos # (Auto) (0-0.3) K/mm3 Baso # (Auto) (0.0-0.1) K/mm3 Abs Immat Gran (auto) (0.00-0.031) K/mm3 Absolute Neuts (auto) (1.3-6.7) K/mm3 Absolute Nucleated RBC (0.0-0.012) K/mm3 Nucleated RBC % (0.0-0.2) % PT (11.1-14.7) Seconds INR APTT (22.3-36.8) Seconds Sodium (137-145) mmol/L Potassium (3.4-5.0) mmol/L Chloride (98-107) mmol/L Carbon Dioxide (22-30) mmol/L Anion Gap (4-12) mmol/L BUN (9-20) mg/dL Creatinine (0.7-1.3) mg/dL Estim Creat Clear Calc ml/min Estimated GFR (59 - ) Glucose (65-110) mg/dL Calcium (8.4-10.2) mg/dL Total Bilirubin (0.2-1.3) mg/dL AST (17-59) U/L ALT (6-50) U/L Alkaline Phosphatase (38-126) U/L Troponin I < 0.012 (0.000-0.034) ng/mL NT-Pro-B Natriuret Pep (19.9-100) pg/mL Total Protein (6.3-8.2) g/dL Albumin (3.5-5.1) g/dL Lipase (23-300) U/L Influenza A (RT-PCR) (Negative) Influenza B (RT-PCR) (Negative) RSV (RT-PCR) (Negative) SARS-CoV-2 RNA (RT-PCR) (Negative) <Palmira Ireland PA-C - Last Filed: 05/28/24 17:29> Lab Results 05/24/24 05/24/24 05/24/24 Range/Units 17:15 17:44 22:39 WBC 6.1 (4.5-10.0) K/mm3 RBC 4.66 (4.6-6.20) M/mm3 Hgb 16.2 D (14.0-18.0) g/dL Hct 48.9 (42.0-52.0) % MCV 104.9 H (80-100) fl MCH 34.8 H (26-34) pg MCHC 33.1 (32-36) g/dl RDW 13.2 (11.5-14.5) % Plt Count 206 (150-375) k/mm3 MPV 9.1 (7.4-10.4) fl Immature Gran % (Auto) 0.7 H (0-0.5) % Neut % (Auto) 69.3 (45.5-73.1) % Lymph % (Auto) 16.8 L (18.3-44.2) % [place] % (Auto) 11.4 H (2.6-8.5) % Eos % (Auto) 1.5 (0-4.4) % Baso % (Auto) 0.3 (0.2-1.2) % Lymph # (Auto) 1.02 (0.9-3.2) K/mm3 [place] # (Auto) 0.7 H (0.1-0.6) K/mm3 Eos # (Auto) 0.1 (0-0.3) K/mm3 Baso # (Auto) 0.0 (0.0-0.1) K/mm3 Abs Immat Gran (auto) 0.04 H (0.00-0.031) K/mm3 Absolute Neuts (auto) 4.2 (1.3-6.7) K/mm3 Absolute Nucleated RBC 0.000 (0.0-0.012) K/mm3 Nucleated RBC % 0.0 (0.0-0.2) % PT 13.1 (11.1-14.7) Seconds INR 1.0 APTT 39.3 H (22.3-36.8) Seconds Sodium 140 (137-145) mmol/L Potassium 3.9 (3.4-5.0) mmol/L Chloride 106 (98-107) mmol/L Carbon Dioxide 31 H (22-30) mmol/L Anion Gap 3 L (4-12) mmol/L BUN 18 D (9-20) mg/dL Creatinine 1.10 (0.7-1.3) mg/dL Estim Creat Clear Calc 44 ml/min Estimated GFR > 60 (59 - ) Glucose 90 (65-110) mg/dL Calcium 9.4 (8.4-10.2) mg/dL Total Bilirubin 0.6 (0.2-1.3) mg/dL AST 25 (17-59) U/L ALT 16 (6-50) U/L Alkaline Phosphatase 169 H (38-126) U/L Troponin I < 0.012 < 0.012 (0.000-0.034) ng/mL NT-Pro-B Natriuret Pep 417 H (19.9-100) pg/mL Total Protein 8.0 (6.3-8.2) g/dL Albumin 4.4 (3.5-5.1) g/dL Lipase 36 (23-300) U/L Influenza A (RT-PCR) Negative (Negative) Influenza B (RT-PCR) Negative (Negative) RSV (RT-PCR) Negative (Negative) SARS-CoV-2 RNA (RT-PCR) Negative (Negative) 05/25/24 Range/Units 00:02 WBC (4.5-10.0) K/mm3 RBC (4.6-6.20) M/mm3 Hgb (14.0-18.0) g/dL Hct (42.0-52.0) % MCV (80-100) fl MCH (26-34) pg MCHC (32-36) g/dl RDW (11.5-14.5) % Plt Count (150-375) k/mm3 MPV (7.4-10.4) fl Immature Gran % (Auto) (0-0.5) % Neut % (Auto) (45.5-73.1) % Lymph % (Auto) (18.3-44.2) % [place] % (Auto) (2.6-8.5) % Eos % (Auto) (0-4.4) % Baso % (Auto) (0.2-1.2) % Lymph # (Auto) (0.9-3.2) K/mm3 [place] # (Auto) (0.1-0.6) K/mm3 Eos # (Auto) (0-0.3) K/mm3 Baso # (Auto) (0.0-0.1) K/mm3 Abs Immat Gran (auto) (0.00-0.031) K/mm3 Absolute Neuts (auto) (1.3-6.7) K/mm3 Absolute Nucleated RBC (0.0-0.012) K/mm3 Nucleated RBC % (0.0-0.2) % PT (11.1-14.7) Seconds INR APTT (22.3-36.8) Seconds Sodium (137-145) mmol/L Potassium (3.4-5.0) mmol/L Chloride (98-107) mmol/L Carbon Dioxide (22-30) mmol/L Anion Gap (4-12) mmol/L BUN (9-20) mg/dL Creatinine (0.7-1.3) mg/dL Estim Creat Clear Calc ml/min Estimated GFR (59 - ) Glucose (65-110) mg/dL Calcium (8.4-10.2) mg/dL Total Bilirubin (0.2-1.3) mg/dL AST (17-59) U/L ALT (6-50) U/L Alkaline Phosphatase (38-126) U/L Troponin I < 0.012 (0.000-0.034) ng/mL NT-Pro-B Natriuret Pep (19.9-100) pg/mL Total Protein (6.3-8.2) g/dL Albumin (3.5-5.1) g/dL Lipase (23-300) U/L Influenza A (RT-PCR) (Negative) Influenza B (RT-PCR) (Negative) RSV (RT-PCR) (Negative) SARS-CoV-2 RNA (RT-PCR) (Negative) <Moshe Cooper MD - Last Filed: 05/25/24 01:37> Imaging Data Radiologist's impression: ITS Impressions Chest X-Ray 05/24/24 17:41 IMPRESSION: Subsegmental left lower lobe atelectasis/consolidation. <Palmira Ireland PA-C - Last Filed: 05/28/24 17:29> Critical Care Time Critical Care Time Critical Care Time: No <Palmira Ireland PA-C - Last Filed: 05/28/24 17:29> Discharge Plan Discharge Clinical Impression: Pneumonia Qualifiers: Pneumonia type: due to unspecified organism Laterality: left Lung location: lower lobe of lung Qualified Code(s): J18.9 - Pneumonia, unspecified organism <Palmira Ireland PA-C - Last Filed: 05/28/24 17:29> Patient Disposition: Still a Patient <Palmira Ireland PA-C - Last Filed: 05/28/24 17:29> Condition: Stable <Palmira Ireland PA-C - Last Filed: 05/28/24 17:29> Time of Disposition: 01:37 <Palmira Ireland PA-C - Last Filed: 05/28/24 17:29> 01:37 <Moshe Cooper MD - Last Filed: 05/25/24 01:37>
[2024-05-24 17:22] LABS: Basophils Percent Auto 0.3 % (0.2-1.2); Eosinophils Absolute Auto 0.1 K/mm3 (0-0.3); Eosinophils Percent Auto 1.5 % (0-4.4); Hematocrit 48.9 % (42.0-52.0); Hemoglobin 16.2 g/dL (14.0-18.0); Immature Granulocyte Absolute 0.04 K/mm3 (0.00-0.031); Immature Granulocyte Percent A 0.7 % (0-0.5); Lymphocytes Absolute Auto 1.02 K/mm3 (0.9-3.2); Lymphocytes Percent Auto 16.8 % (18.3-44.2); Mean Corpuscular HGB Conc 33.1 g/dl (32-36); Mean Corpuscular Hemoglobin 34.8 pg (26-34); Mean Corpuscular Volume 104.9 fl (80-100); Mean Platelet Volume 9.1 fl (7.4-10.4); Monocytes Absolute Auto 0.7 K/mm3 (0.1-0.6); Monocytes Percent Auto 11.4 % (2.6-8.5); Neutrophils Absolute Auto 4.2 K/mm3 (1.3-6.7); Neutrophils Percent Auto 69.3 % (45.5-73.1); Platelet Count Result 206 k/mm3 (150-375); Red Blood Count 4.66 M/mm3 (4.6-6.20); Red Cell Distribution Width 13.2 % (11.5-14.5); White Blood Count 6.1 K/mm3 (4.5-10.0)
[2024-05-24 17:39] LABS: Prothrombin Time 13.1 Seconds (11.1-14.7)
[2024-05-24 17:40] LABS: Partial Thromboplastin Time 39.3 Seconds (22.3-36.8)
[2024-05-24] MEDS: ASPIRIN 81 MG CHEWABLE TABLET 324 MG PO (17:41)
[2024-05-24 17:42] LABS: Alanine Aminotransferase 16 U/L (6-50); Albumin Level 4.4 g/dL (3.5-5.1); Alkaline Phosphatase 169 U/L (38-126); Anion Gap 3 mmol/L (4-12); Aspartate Amino Transferase 25 U/L (17-59); Bilirubin,Total 0.6 mg/dL (0.2-1.3); Blood Urea Nitrogen 18 mg/dL (9-20); Calcium 9.4 mg/dL (8.4-10.2); Carbon Dioxide 31 mmol/L (22-30); Chloride 106 mmol/L (98-107); Estimated CRCL calculation 44 ml/min; Estimated Glomerular Filt Rate > 60; Glucose 90 mg/dL (65-110); Lipase 36 U/L (23-300); Potassium 3.9 mmol/L (3.4-5.0); Sodium 140 mmol/L (137-145)
[2024-05-24] MEDS: predniSONE 20 MG TABLET 40 MG PO (17:42)
[2024-05-24] MEDS: IPRATROPIUM 0.5 MG/ALBUTEROL SULFATE 2.5 MG AMPUL.NEB 3 ML INHALATION (17:44)
[2024-05-24 17:53] LABS: Troponin I < 0.012 ng/mL (0.000-0.034)
[2024-05-24 18:02] LABS: NT Pro B Type Natriuretic Pept 417 pg/mL (19.9-100)
[2024-05-24 18:29] LABS: Influenza A QL RT-PCR Negative (Negative); Influenza B QL RT-PCR Negative (Negative); RSV RNA, RT-PCR Negative (Negative); SARS-CoV-2 RNA PCR Negative (Negative)
--- NOTE | 2024-05-24 22:26 | ECG_ITS ---
Test Date: 2024-05-24 22:32:54 Measurements Intervals [place] Rate: 89 P: 75 UT: 164 QRS: -16 QRSD: 174 T: 98 QT: 388 QTc: 473 Interpretive Statements SINUS RHYTHM WITH 1ST DEGREE AV BLOCK RIGHT BUNDLE BRANCH BLOCK LEFTWARD AXIS ST ELEVATION, CONSIDER INFERIOR INJURY PATTERN ABNORMAL ECG Electronically Signed On 05-25-2024 17:14:09 KITCHEN SUPERVISOR by Angel Borjas M.D.
[2024-05-24 23:07] LABS: Troponin I < 0.012 ng/mL (0.000-0.034)
[2024-05-24 23:45] VITALS: BP 177/92; PULSE 88; RESP 20; O2SAT 97
[2024-05-25] VITALS (27 sets, daily range): BP systolic 102–153; BP diastolic 55–91; PULSE 59–93; RESP 11–20; TEMP 36.4–36.6; O2SAT 92–97; BMI 23.3
[2024-05-25 00:40] LABS: Troponin I < 0.012 ng/mL (0.000-0.034)
--- NOTE | 2024-05-25 01:31 | PM.IMHP ---
H&P: HPI History of Present Illness Date/Time: 05/25/24 01:31 Chief Complaint: Generalized weakness Narrative: This is an 88-year-old male with past medical history significant for hypertension, glaucoma, sleep apnea, COPD. Patient was brought to the emergency room due to generalized weakness, shortness of breath, epigastric pain. This was upon wakening up, patient was unable to get up by himself call his friend who came to help him. This was of 1 day duration. Preliminary workup was significant for chest x-ray with left lower lobe infiltrate. Patient had negative troponins x3, patient was negative for influenza type A influenza type B COVID and RSV. Patient has been admitted for further evaluation management and treatment. EXAMINATION: XR chest 2V Exam Date/Time: 05/24/2024 17:30 LEAD QUALITY CONTROL TECHNICIAN HISTORY: CP Comparison: 12/07/2005. RESULT: Lines, tubes, and devices: None. Lungs and pleura: Senescent and emphysematous change. Hazy subsegmental airspace disease in the left lower lobe. Minimal streaky bibasilar atelectasis/scar. Calcified granulomas. Right apical pleural thickening. Cardiomediastinal silhouette: Stable. Aortic ectasia. Dilated central pulmonary arteries as can be seen with pulmonary arterial hypertension. Other: No acute osseous or upper abdominal finding. IMPRESSION: Subsegmental left lower lobe atelectasis/consolidation. Review of Systems Review of Systems: Generalized weakness, shortness of breath. [facility] Past Medical History Medical History Diverticular hemorrhage Acute blood loss anemia Colon, diverticulosis Rectal bleeding Sleep apnea Emphysema/COPD Family History Family History (Updated 05/25/24 @ 04:37 by Jaimie Roman RN) Other Adopted Social History Social History Smoking status: Former smoker Alcohol intake: never Substance use: never Substance use type: does not use Do You Feel Safe in your Home?: Yes Lack of Transportation: No Lack of Food: Never True Current Housing: I Have Housing Concerned About Future Housing: No Difficulty Paying Gas/Electric Bills: No Difficulty Paying for Meds: No Currently Unemployed: No Education: Trade/Vocational Certificate Difficulty w/ Childcare or Family Care: No Spiritual care concerns: No Meds Home Medications and Allergies Home Medications ?Medication ?Instructions ?Recorded ?Confirmed ?Type atorvastatin 20 mg tablet 20 mg PO DAILY 10/16/21 05/25/24 History budesonide-formoterol HFA 160 2 puff inhalation BID 10/16/21 05/25/24 History mcg-4.5 mcg/actuation aerosol inhaler (Symbicort) bupropion HCl 150 mg tablet,12 hr 150 mg PO BID 10/16/21 05/25/24 History sustained-release doxazosin 4 mg tablet 4 mg PO DAILY 10/16/21 05/25/24 History gabapentin 300 mg capsule 600 mg PO DAILY 10/16/21 05/25/24 History isosorbide mononitrate 30 mg 30 mg PO DAILY 10/16/21 05/25/24 History tablet,extended release 24 hr Aspir-81 81 mg PO DAILY 05/09/23 05/25/24 History albuterol sulfate 90 mcg/actuation 2 puff inhalation PRN PRN Wheezing 05/09/23 05/25/24 History aerosol inhaler brimonidine 0.2 %-timolol 0.5 % 1 drp RIGHT EYE BID 05/09/23 05/25/24 History eye drops (Combigan) latanoprost 0.005 % eye drops 1 drp RIGHT EYE HS 05/09/23 05/25/24 History omeprazole 40 mg capsule,delayed mg 05/25/24 History release Allergies Allergy/AdvReac Type Severity Reaction Status Date / Time No Known Allergies Allergy Mild Verified 05/14/23 00:03 Vital Signs Vital Signs - 24 hr 05/24/24 16:54 05/24/24 23:45 05/25/24 00:16 Temperature 97.1 F L Pulse Rate 86 88 76 Respiratory Rate 20 20 17 Blood Pressure 165/83 H 177/92 H 152/70 H Pulse Oximetry 95 97 92 Oxygen Delivery Room Air 05/25/24 00:30 05/25/24 00:45 05/25/24 00:52 Temperature Pulse Rate 75 70 Respiratory Rate 16 18 Blood Pressure 143/81 H 141/72 H Pulse Oximetry 92 92 92 Oxygen Delivery Room Air Exam Narrative: Laying in a stretcher Const: General: comfortable, no acute distress, well developed, alert, awake, ill appearing acutely and average body habitus Nutritional Appearance: average body habitus Orientation/consciousness: patient oriented x3 HENMT: Head: normal to inspection, normocephalic and atraumatic Ears: hearing grossly normal bilaterally Face/Nose/Sinus: normal facial exam Face and sinus: normal facial exam Eyes: General: appearance normal, both eyes and all related structures Pupils: Equal, round and reactive pupils present EOM: EOMs intact bilaterally Neck: Neck: full ROM, no lymphadenopathy and no JVD Thyroid: thyroid normal Lymphatic: no lymphadenopathy noted Resp: Effort & Inspection: normal respiratory effort and able to speak in complete sentences Auscultation: crackles on the left at the base Cardio: Jugular venous distension: no JVD Rate: regular rate Rhythm: regular rhythm Heart sounds: S1 normal heart sound present and S2 normal heart sound present GI: GI Palp: Yes Soft to palpation and Yes No hepatosplenomegaly present : General: Yes deferred Skin: Rashes: no rashes Wounds: no wounds Neuro: General: patient oriented x3 and CN's II-XI intact bilaterally Cranial nerves: Yes CN's II-XII intact bilaterally and Yes Equal, round and reactive pupils present Cognition (Neuro): normal cognition Speech: normal speech Gait exam (Neuro): Unable to assess gait Motor exam (neuro): 5/5 motor strength present throughout Extrem: General: normal to inspection, full ROM, no joint enlargement and no pedal edema H&P: Results Labs Labs: Short CBC 05/24/24 Range/Units 17:15 WBC 6.1 (4.5-10.0) K/mm3 Hgb 16.2 D (14.0-18.0) g/dL Hct 48.9 (42.0-52.0) % Plt Count 206 (150-375) k/mm3 BMP 05/24/24 17:15 Sodium 140 Potassium 3.9 Chloride 106 Carbon Dioxide 31 H BUN 18 D Creatinine 1.10 Glucose 90 Calcium 9.4 Cardiac Enzymes 05/24/24 05/24/24 05/25/24 Range/Units 17:15 22:39 00:02 Troponin I < 0.012 < 0.012 < 0.012 (0.000-0.034) ng/mL Liver Function 05/24/24 Range/Units 17:15 Total Bilirubin 0.6 (0.2-1.3) mg/dL AST 25 (17-59) U/L ALT 16 (6-50) U/L Alkaline Phosphatase 169 H (38-126) U/L Albumin 4.4 (3.5-5.1) g/dL Assessment and Plan Assessment and plan (1) Pneumonia: Code(s): J18.9 - Pneumonia, unspecified organism Status: Acute Assessment and Plan: Admit to regular medical floor Patient started on Rocephin and Zithromax Cultures in progress (2) Emphysema/COPD: Code(s): J43.9 - Emphysema, unspecified Status: Acute Assessment and Plan: Not actively wheezing Continue Symbicort DuoNeb (3) Sleep apnea: Code(s): G47.30 - Sleep apnea, unspecified Status: Acute Assessment and Plan: CPAP at nighttime Hospitalist MIPS Advance Care Plan I have confirmed that the patient's Advanced Care Plan is present, code status is documented, or surrogate decision maker is listed in patient medical record.: Yes Medication Reconciliation I have utilized all available resources to obtain, update and review the patients current medications (includes all prescriptions, OTC, herbals, cannabis, and nutritional supplements).: Yes
[2024-05-25] MEDS: IPRATROPIUM 0.5 MG/ALBUTEROL SULFATE 2.5 MG AMPUL.NEB 3 ML INHALATION ×3 (02:14→19:56)
[2024-05-25] MEDS: AZITHROMYCIN 500 MG/NS 250 ML 500 MG/250 ML BAG 250 MG IVPB ×2 (03:04→22:14)
[2024-05-25] MEDS: buPROPion HCL SR (12 HR) 150 MG TAB PO ×2 (09:56→20:14)
[2024-05-25] MEDS: ISOSORBIDE MONONITRATE 30 MG TAB.ER.24H PO (09:56)
[2024-05-25] MEDS: GABAPENTIN 300 MG CAPSULE 600 MG PO (09:56)
[2024-05-25] MEDS: DOXAZOSIN MESYLATE 4 MG TABLET PO (09:56)
[2024-05-25] MEDS: BRIMONIDINE TARTRATE 0.2% OP SOLN 5 ML BTL 1 DROP RIGHT EYE (09:57)
[2024-05-25] MEDS: TIMOLOL MALEATE 0.5% OP SOLN 5 ML BOTTLE 1 DROP RIGHT EYE (09:57)
--- NOTE | 2024-05-25 11:12 | PM.IMPN ---
Progress Note: A&P Assessment and Plan (1) Pneumonia: Code(s): J18.9 - Pneumonia, unspecified organism Status: Acute Assessment and Plan: On room air Patient started on Rocephin and Zithromax Cultures in progress (2) Emphysema/COPD: Code(s): J43.9 - Emphysema, unspecified Status: Acute Assessment and Plan: Not actively wheezing Continue Symbicort DuoNeb (3) Sleep apnea: Code(s): G47.30 - Sleep apnea, unspecified Status: Acute Assessment and Plan: CPAP at nighttime Plan DVT prophylaxis on Sq Lovenox Subjective Date/time seen: 05/25/24 11:12 Interval history: COmfortable at bedside Review of Systems Review of Systems: Generalized weakness, shortness of breath. Exam Narrative: Laying in a stretcher Const: General: comfortable, no acute distress, well developed, alert, awake, ill appearing acutely and average body habitus Nutritional Appearance: average body habitus Orientation/consciousness: patient oriented x3 HENMT: Head: normal to inspection, normocephalic and atraumatic Ears: hearing grossly normal bilaterally Face/Nose/Sinus: normal facial exam Face and sinus: normal facial exam Eyes: General: appearance normal, both eyes and all related structures Pupils: Equal, round and reactive pupils present EOM: EOMs intact bilaterally Neck: Neck: full ROM, no lymphadenopathy and no JVD Thyroid: thyroid normal Lymphatic: no lymphadenopathy noted Resp: Effort & Inspection: normal respiratory effort and able to speak in complete sentences Auscultation: crackles on the left at the base Cardio: Jugular venous distension: no JVD Rate: regular rate Rhythm: regular rhythm Heart sounds: S1 normal heart sound present and S2 normal heart sound present : General: Yes deferred Skin: Rashes: no rashes Wounds: no wounds Neuro: General: patient oriented x3, CN's II-XI intact bilaterally and Unable to assess gait Cranial nerves: Yes CN's II-XII intact bilaterally and Yes Equal, round and reactive pupils present Cognition (Neuro): normal cognition Speech: normal speech Gait exam (Neuro): Unable to assess gait Motor exam (neuro): 5/5 motor strength present throughout Extrem: General: normal to inspection, full ROM, no joint enlargement and no pedal edema Objective Data Vital Signs Vital Signs: Vital Signs - 24 hr 05/24/24 16:54 05/24/24 23:45 05/25/24 00:16 Temperature 97.1 F L Pulse Rate 86 88 76 Respiratory Rate 20 20 17 Blood Pressure 165/83 H 177/92 H 152/70 H Pulse Oximetry 95 97 92 Oxygen Delivery Room Air 05/25/24 00:30 05/25/24 00:45 05/25/24 00:52 Temperature Pulse Rate 75 70 Respiratory Rate 16 18 Blood Pressure 143/81 H 141/72 H Pulse Oximetry 92 92 92 Oxygen Delivery Room Air 05/25/24 01:16 05/25/24 01:32 05/25/24 01:45 Temperature Pulse Rate 74 71 73 Respiratory Rate 20 18 17 Blood Pressure 153/70 H 146/80 H 136/88 Pulse Oximetry 93 92 94 Oxygen Delivery 05/25/24 01:46 05/25/24 02:00 05/25/24 02:14 Temperature Pulse Rate 73 73 64 Respiratory Rate 19 18 12 Blood Pressure 149/90 H Pulse Oximetry 94 93 Oxygen Delivery 05/25/24 02:16 05/25/24 02:31 05/25/24 02:46 Temperature Pulse Rate 59 L 72 73 Respiratory Rate 11 L 18 19 Blood Pressure 151/77 H 148/65 H 152/73 H Pulse Oximetry 96 92 97 Oxygen Delivery 05/25/24 03:01 05/25/24 04:17 05/25/24 04:54 Temperature 97.8 F Pulse Rate 82 84 84 Respiratory Rate 20 18 Blood Pressure 143/91 H 150/77 H Pulse Oximetry 93 93 Oxygen Delivery Intake/Output Intake/Output: Intake & Output 05/22/24 05/23/24 05/24/24 05/25/24 23:59 23:59 23:59 23:59 Intake Total 170 Output Total 275 Balance -105 Meds/Results Medications: Active Medications Generic Name Dose Route Start Last Admin Trade Name Freq PRN Reason Stop Dose Admin Acetaminophen 650 mg 05/25/24 01:33 Acetaminophen 325 Mg Tablet PO Q4H PRN Mild Pain (1-3) or Fever Al Hydrox/Mg Hydrox/Simethicone 30 ml 05/25/24 04:29 Mag Hydrox/Al Hydrox/Simeth 30 Ml Udc PO Q6H PRN Indigestion Albuterol/Ipratropium 3 ml 05/25/24 02:00 05/25/24 10:56 Ipratropium 0.5 Mg/Albuterol Sulfate 2.5 Mg Ampul.Neb 3 Ml INHALATION Not Given Q6HRT JAMISON Brimonidine Tartrate 1 drop 05/25/24 09:00 05/25/24 09:57 Brimonidine Tartrate 0.2% Op Soln 5 Ml Btl RIGHT EYE 1 drop Q12HR JAMISON Administration Bupropion HCl 150 mg 05/25/24 09:00 05/25/24 09:56 Bupropion Hcl Sr (12 Hr) 150 Mg Tab PO 150 mg Q12HR JAMISON Administration Doxazosin Mesylate 4 mg 05/25/24 09:00 05/25/24 09:56 Doxazosin Mesylate 4 Mg Tablet PO 4 mg DAILY JAMISON Administration Gabapentin 600 mg 05/25/24 09:00 05/25/24 09:56 Gabapentin 300 Mg Capsule PO 600 mg DAILY JAMISON Administration Ceftriaxone Sodium 1 gm in 50 mls @ 100 mls/hr 05/25/24 22:00 Rocephin 1 Gm/Ns 50 Ml IVPB Q24H JAMISON Azithromycin 500 mg in 250 mls @ 250 mls/hr 05/25/24 23:00 Zithromax IVPB Q24H JAMISON Isosorbide Mononitrate 30 mg 05/25/24 09:00 05/25/24 09:56 Isosorbide Mononitrate 30 Mg Tab.Er.24h PO 30 mg DAILY JAMISON Administration Latanoprost 1 drop 05/25/24 21:00 Latanoprost 0.005% Op Soln 2.5 Ml Btl RIGHT EYE HS JAMISON Ondansetron HCl 4 mg 05/25/24 04:29 Ondansetron Inj 4 Mg/2 Ml Vial IV PUSH Q6H PRN Nausea And Vomiting Polyethylene Glycol 17 gm 05/25/24 04:29 Polyethylene Glycol 3350 17 Gm Powd.Pack PO QAM PRN Constipation Fluticasone/Salmeterol 2 puff 05/25/24 08:00 05/25/24 10:55 Fluticasone/Salmeterol 115-21 Mcg Inhaler 1 Puff INHALATION Not Given Q12HRT [facility] Timolol Maleate 1 drop 05/25/24 09:00 05/25/24 09:57 Timolol Maleate 0.5% Op Soln 5 Ml Bottle RIGHT EYE 1 drop Q12HR JAMISON Administration Radiology Results: ITS Impressions Chest X-Ray 05/24/24 17:41 IMPRESSION: Subsegmental left lower lobe atelectasis/consolidation. Labs Labs: Laboratory Results - last 24 hr 05/24/24 05/24/24 05/24/24 17:15 17:44 22:39 WBC 6.1 RBC 4.66 Hgb 16.2 D Hct 48.9 MCV 104.9 H MCH 34.8 H MCHC 33.1 RDW 13.2 Plt Count 206 MPV 9.1 Immature Gran % (Auto) 0.7 H Neut % (Auto) 69.3 Lymph % (Auto) 16.8 L [place] % (Auto) 11.4 H Eos % (Auto) 1.5 Baso % (Auto) 0.3 Lymph # (Auto) 1.02 [place] # (Auto) 0.7 H Eos # (Auto) 0.1 Baso # (Auto) 0.0 Abs Immat Gran (auto) 0.04 H Absolute Neuts (auto) 4.2 Absolute Nucleated RBC 0.000 Nucleated RBC % 0.0 PT 13.1 INR 1.0 APTT 39.3 H Sodium 140 Potassium 3.9 Chloride 106 Carbon Dioxide 31 H Anion Gap 3 L BUN 18 D Creatinine 1.10 Estim Creat Clear Calc 44 Estimated GFR > 60 Glucose 90 Calcium 9.4 Total Bilirubin 0.6 AST 25 ALT 16 Alkaline Phosphatase 169 H Troponin I < 0.012 < 0.012 NT-Pro-B Natriuret Pep 417 H Total Protein 8.0 Albumin 4.4 Lipase 36 Influenza A (RT-PCR) Negative Influenza B (RT-PCR) Negative RSV (RT-PCR) Negative SARS-CoV-2 RNA (RT-PCR) Negative 05/25/24 00:02 WBC RBC Hgb Hct MCV MCH MCHC RDW Plt Count MPV Immature Gran % (Auto) Neut % (Auto) Lymph % (Auto) [place] % (Auto) Eos % (Auto) Baso % (Auto) Lymph # (Auto) [place] # (Auto) Eos # (Auto) Baso # (Auto) Abs Immat Gran (auto) Absolute Neuts (auto) Absolute Nucleated RBC Nucleated RBC % PT INR APTT Sodium Potassium Chloride Carbon Dioxide Anion Gap BUN Creatinine Estim Creat Clear Calc Estimated GFR Glucose Calcium Total Bilirubin AST ALT Alkaline Phosphatase Troponin I < 0.012 NT-Pro-B Natriuret Pep Total Protein Albumin Lipase Influenza A (RT-PCR) Influenza B (RT-PCR) RSV (RT-PCR) SARS-CoV-2 RNA (RT-PCR)
[2024-05-25] MEDS: FLUTICASONE/SALMETEROL 115-21 MCG INHALER 1 PUFF 2 PUFF INHALATION (19:56)
[2024-05-25] MEDS: LATANOPROST 0.005% OP SOLN 2.5 ML BTL 1 DROP RIGHT EYE (20:14)
[2024-05-26] VITALS (9 sets, daily range): BP systolic 126; BP diastolic 71; PULSE 74–93; RESP 16–18; TEMP 36.7; O2SAT 94–95
[2024-05-26] MEDS: IPRATROPIUM 0.5 MG/ALBUTEROL SULFATE 2.5 MG AMPUL.NEB 3 ML INHALATION ×2 (02:41→08:45)
[2024-05-26] MEDS: FLUTICASONE/SALMETEROL 115-21 MCG INHALER 1 PUFF 2 PUFF INHALATION (08:45)
[2024-05-26] MEDS: GABAPENTIN 300 MG CAPSULE 600 MG PO (10:05)
[2024-05-26] MEDS: ISOSORBIDE MONONITRATE 30 MG TAB.ER.24H PO (10:05)
[2024-05-26] MEDS: DOXAZOSIN MESYLATE 4 MG TABLET PO (10:05)
[2024-05-26] MEDS: buPROPion HCL SR (12 HR) 150 MG TAB PO (10:05)
[2024-05-26] MEDS: BRIMONIDINE TARTRATE 0.2% OP SOLN 5 ML BTL 1 DROP RIGHT EYE (10:07)
[2024-05-26] MEDS: TIMOLOL MALEATE 0.5% OP SOLN 5 ML BOTTLE 1 DROP RIGHT EYE (10:07)
--- NOTE | 2024-05-26 12:42 | PM.DS ---
DS: Admitting Diagnosis Discharge Date 05/26/24 Admitting Diagnosis Generalized weakness DS: Discharge Diagnosis Discharge Diagnosis (1) Pneumonia: Code(s): J18.9 - Pneumonia, unspecified organism Status: Acute DS: Summary Hospital Course Hospital Course: This is an 88-year-old male with past medical history significant for hypertension, glaucoma, sleep apnea, COPD. Patient was brought to the emergency room due to generalized weakness, shortness of breath, epigastric pain. This was upon wakening up, patient was unable to get up by himself call his friend who came to help him. This was of 1 day duration. Preliminary workup was significant for chest x-ray with left lower lobe infiltrate. Patient had negative troponins x3, patient was negative for influenza type A influenza type B COVID and RSV. Patient has been admitted for further evaluation management and treatment. Patient was admitted and managed for pneumonia on Rocephin and Azithromycin. Patient was evaluated by PT/OT and home discharge was recommended. Patient is eating and drinking at baseline. Discharged on Cefdinir and Doxycycline for 5 more days. F/u with PCP in 3-5 days Time Spent with Patient Time attestation: Total time spent providing and/or coordinating discharge services: DS: Data Data Completed and Pending Labs on day of discharge: Preliminary micro results at discharge 05/25/24 02:26 Blood Culture - Preliminary Blood 05/25/24 02:26 Blood Culture - Preliminary Blood Discharge Plan Discharge Attending physician on discharge: Gianluca May Discharging Clinician: Gianluca May Anticipated Discharge Date/Time: 05/26/24 12:37 Patient Disposition: Home, Self-Care Activity: as tolerated Diet: as tolerated Patient Instructions: Antibiotic Form Patient Language: Bahraini Stand Alone Forms: General Discharge Information Follow-up/Referrals: Randy,Irwin Black MD [Primary Care Provider] - (Follow-up PCP 3 - 5 days) Discharge Medications: New cefdinir 300 mg capsule 300 mg PO Q12H 5 Days Qty: 10 0RF doxycycline hyclate 100 mg capsule 100 mg PO BID 5 Days Qty: 10 0RF Continued bupropion HCl 150 mg tablet sustained-release 12 hr 150 mg PO BID atorvastatin 20 mg tablet 20 mg PO DAILY isosorbide mononitrate 30 mg tablet extended release 24 hr 30 mg PO DAILY gabapentin 300 mg capsule 600 mg PO DAILY doxazosin 4 mg tablet 4 mg PO DAILY budesonide-formoterol [Symbicort] 160-4.5 mcg/actuation HFA aerosol inhaler 2 puff inhalation BID Aspir-81 81 mg PO DAILY latanoprost 0.005 % drops 1 drp RIGHT EYE HS albuterol sulfate 90 mcg/actuation HFA aerosol inhaler 2 puff INHALATION PRN PRN (Reason: Wheezing) brimonidine-timolol [Combigan] 0.2-0.5 % drops 1 drp RIGHT EYE .COMPLEX Rx Instructions: 1 drp into right eye at 0900 and 1200; omeprazole 40 mg capsule,delayed release(DR/EC) 40 mg PO DAILY Date of admission: 05/25/24 01:33 Primary Care Provider: Randy,Irwin Black Admitting Provider: Jacquelyn Sosa V. Attending physician on admission: Jacquelyn Sosa V. Condition: Stable
--- OUTSIDE RECORDS SUMMARY | 2024-06-01 02:22 | XMS_ITS | Encounter Summary ---
Author Organization [facility] Address [address] [place] [id number] Care Team Providers Care Wax Molder Name Role Phone Angelo Mccloud MD Primary Care Provider [phone] Reason for Visit * Reason Comments Coronary Artery Disease 6 month follow u p. Encounter Details Date Type Department Care Team (Late st Contact Info) Description 12/13/2023 2:15 PM CDT Office Visit [facility] Cardiology [address] [place] [address] Jefferson Moeller MD [address] [place], [place] [id number] Coronary artery disease involving [place] coronary artery of [place] heart without angina pectoris (Primary Dx) Social History Tobacco Use Types Packs/Day Years Used Date Smoking Tobacco: Former Smokeless Tobacco: Never Comments:20 years ago AUDIT-C Answer Date Recorded Q1: How often do you have a drink containing alc ohol? Monthly or less 01/01/2021 Q2: How many drinks containi ng alcohol do you have on a typical day when you are drinking? 1 or 2 01/01/2021 Q3: How often do you have si x or more drinks on one occasion? Never 01/01/2021 Sex and Gender Information Value Date Recorded Sex Assigned at Not on file Legal Sex Male 5:45 AM [employer] Gender Identity Not on file Sexual Orientation Not on file documented as of this encounter Last Filed Vital Signs Vital Sign Reading Time Taken Comments Blood Pressure 118/60 12/13/2023 2:30 PM CDT Pulse 70 12/13/2023 2:30 PM CDT Temperature - - Respiratory Rate - - Oxygen Saturation 95% 12/13/2023 2:30 PM CDT Inhaled Oxygen Concentration - - Weight 81.6 kg (180 lb) 12/13/2023 2:30 PM CDT Height 180.3 cm (5' 11 ) 12/13/2023 2:30 PM CDT Body Mass Index 25.1 12/13/2023 2:30 PM CDT documented in this encounter Progress Notes * Jefferson Moeller MD - 12/13/2023 2:15 PM CDT [facility] FOLLOW UP 12/13/2023 Rogerio Vivar is a 88 y.o. male who presents for follow up of coronary artery disease. This is an elderly gentleman who underwent percutaneous revascularization many years ago by a physician in [place]. We do not have records of that care but he has been doing well since then. In 2022 he transfe rred his care to our practice for ongoing follow-up for convenience of location of our office. He also has a history of peripheral vascular disease having undergone a right carotid endarterectomy in the remote past he also has chronic COPD. He presents today for scheduled six-month appointment reporting that he has no new symptoms or concerns. He does state that if he gets in a hurry and walks vigorously at times he will provoke some substernal chest pain. The symptoms resolved with a short time of rest. He did not report these symptoms to me during his initial appointment however he says they are chronic and have not changed in recent years. He denies any other cardiac symptoms such as palpitations orthopnea PND or edema. REVIEW OF SYSTEMS General ROS: negative for - chills, fatigue, fever, malaise, night sweats, weight gain or weight loss Psychological ROS: negative for - anxiety, depression, memory difficulties or sleep disturbances Ophthalmic ROS: negative for - blurry vision, decreased vision, loss of vision or scotomata ENT ROS: negative for - epistaxis, headaches, hearing change, nasal congestion, nasal discharge, sore throat, vertigo or visual changes Hematological and Lymphatic ROS: negative for - bleeding problems, blood clots, bruising, fatigue or weight loss Endocrine ROS: negative for - hot flashes, palpitations, polydipsia/polyuria or unexpected weight changes Respiratory ROS: negative for - cough, hemoptysis, orthopnea, shortness of breath, tachypnea or wheezing Cardiovascular ROS: negative for - chest pain, dyspnea on exertion, edema, irregular heartbeat, loss of consciousness, murmur, orthopnea, palpitations, paroxysmal nocturnal dyspnea, rapid heart rate or shortness of breath Gastrointestinal ROS: negative for - abdominal pain, appetite loss, blood in stools, constipation, diarrhea, gas/bloating, heartburn, hematemesis, melena or nausea/vomiting Genito-Urinary ROS: negative for - dysuria, erectile dysfunction or hematuria Musculoskeletal ROS: negative for - joint pain, muscle pain or muscular weakness Dermatological ROS: negative for dry skin, eczema, pruritus and rash HOME MEDICATIONS Current Outpatient Medications: albuterol HFA (PROVENTIL HFA,VENTOLIN HFA,PROAIR HFA) 90 mcg/actuation inhaler, Inhale 2 puffs every 6 (six) hours as needed for wheezing, Disp: , Rfl: ascorbic acid, vitamin C, 500 mg capsule, Take 500 mg by mouth daily, Disp: , Rfl: ASPIRIN ORAL, Take 81 mg by mouth daily, Disp: , Rfl: atorvastatin (LIPITOR) 20 mg tablet, Take 1 tablet (20 mg total) by mouth nightly, Disp: , Rfl: brimonidine-timoloL (COMBIGAN) 0.2-0.5 % ophthalmic solution, Administer 1 drop into the right eye 2 (two) times a day, Disp: , Rfl: budesonide-formoteroL (SYMBICORT) 160-4.5 mcg/actuation inhaler, Inhale 2 puffs 2 (two) times a dayRinse mouth with water after use. Do not swallow., Disp: , Rfl: buPROPion SR (WELLBUTRIN SR) 150 mg 12 hr tablet, Take 1 tablet (150 mg total) by mouth 2 (two) times a day, Disp: , Rfl: cholecalciferol, vitamin D3, (VITAMIN D3 ORAL), Take 1 capsule by mouth daily, Disp: , Rfl: clotrimazole-betamethasone (LOTRISONE) cream, Apply 1 application topically as needed , Disp: , Rfl: doxazosin (CARDURA) 4 mg tablet, Take 1 tablet (4 mg total) by mouth nightly, Disp: , Rfl: fluticasone propionate (FLONASE) 50 mcg/actuation nasal spray, Administer 2 sprays into each nostril as needed, Disp: , Rfl: gabapentin (NEURONTIN) 300 mg capsule, Take 1 capsule (300 mg total) by mouth nightly, Disp: , Rfl: HYDROcodone-acetaminophen (NORCO) 5-325 mg per tablet, Take 1 tablet by mouth every 6 (six) hours as needed (For severe pain not controlled by Tylenol alone or Ibuprofen), Disp: 10 tablet, Rfl: 0 isosorbide mononitrate ER (IMDUR) 30 mg 24 hr tablet, Take 1 tablet (30 mg total) by mouth daily, Disp: , Rfl: latanoprost (XALATAN) 0.005 % ophthalmic solution, Administer 1 drop into the right eye nightly, Disp: , Rfl: multivitamin capsule, Take 1 capsule by mouth daily, Disp: , Rfl: omeprazole (PriLOSEC) 20 mg capsule, Take 1 capsule (20 mg total) by mouth daily, Disp: , Rfl: phenazopyridine (PYRIDIUM) 100 mg tablet, Take 1 tablet (100 mg total) by mouth 3 (three) times a day as needed for urinary pain, Disp: 9 tablet, Rfl: 0 tamsulosin (FLOMAX) 0.4 mg extended release capsule, Take 1 capsule (0.4 mg total) by mouth nightly, Disp: 15 capsule, Rfl: 0 vitamin E (vitamin E) 400 unit capsule, Take 1 capsule (400 Units total) by mouth 2 (two) times a day, Disp: , Rfl: clopidogreL (PLAVIX) 75 mg tablet, Take 1 tablet (75 mg total) by mouth daily, Disp: 30 tablet, Rfl: 11 LABS AND OTHER DIAGNOSTIC TESTS No results found for: CHOL No results found for: HDL No results found for: LDLCALC No results found for: TRIG No results found for: CHOLHDL Lab Results Component Value Date WBC 7.2 09/29/2020 HGB 14.1 09/29/2020 HCT 43.5 09/29/2020 MCV 102.1 (H) 09/29/2020 No lab exists for component: LABALBU PHYSICAL EXAM Vitals BP 118/60 (BP Location: Right arm, Patient Position: Sitting) Pulse 70 Ht 180.3 cm (5' 11 ) Wt 81.6 kg (180 lb) SpO2 95% BMI 25.10 kg/m?? Physical Examination: General appearance - alert, well appearing, and in no distress, oriented to person, place, and time and acyanotic, in no respiratory distress Mental status - affect appropriate to mood Eyes - extraocular eye movements intact, sclera anicteric, no pallor Ears - external earsappear normal, hearing grossly normal bilaterally Nose - normal and patent, no erythema or discharge Mouth - mucous membranes moist, pharynx appears normal, dental hygiene good and tongue normal Neck - supple, no significant neck masses, carotids upstroke normal bilaterally, no bruits, no JVD Chest - clear to auscultation, no wheezes, rales or rhonchi, symmetric air entry, no tachypnea, retractions or cyanosis Heart - normal rate, regular rhythm, normal S1, S2, no murmurs, rubs, clicks or gallops, no JVD Abdomen - soft, nontender, nondistended, no masses or organomegaly bowel sounds normal Neurological - alert, oriented, normal speech, no focal findings or movement disorder noted Musculoskeletal - no joint tenderness, deformity or swelling, no muscular tenderness noted Extremities - peripheral pulses normal, no pedal edema, no clubbing or cyanosis Skin - normal coloration and turgor, no rashes, no suspicious skin lesions noted ASSESSMENT Rogerio was seen today for coronary artery disease. Diagnoses and all orders for this visit: Coronary artery disease involving [place] coronary artery of [place] heart without angina pectoris PLAN/RECOMMENDATIONS He is doing very well clinically. He does have some chronic stable angina that he is describing today in the office although he states this is not new and in his normal daily activities this does notaffect his his lifestyle at all. At 88 years old I am not going to conduct an ischemia evaluation in the face of these chronic stable symptoms. Jefferson Moeller MD documented in this encounter Plan of Treatment Not on file documented as of this encounter Visit Diagnoses Diagnosis Coronary artery disease involving [place] coronary artery of [place] heart without angina pectoris- Primary documented in this encounter Care Teams Wax Molder Relationship Specialty Start Date End Date Angelo Mccloud MD [address] [place] [address] PCP - General 10/01/20 documented as of this encounter
--- OUTSIDE RECORDS SUMMARY | 2024-06-01 02:22 | XMS_ITS | Clinical Summary ---
Author Organization [facility] Address [address] [place] [address]. [place], [place] [id number] [place] [id number] Care Team Providers Care Television Installer Name Role Phone Unavailable Primary Care Provider Unavailabl e Social History Tobacco Use Types Packs/Day Years Used Date Smoking Tobacco: Never Assessed Sex and Gender Information Value Date Recorded Sex Assigned at Not on file Legal Sex Male 8:05 PM CDT Gender Identity Not on file Sexual Orientation Not on file Plan of Treatment Health Maintenance Due Date Last Done Comments DTaP, Tdap and Td Vaccines ( 1 - Tdap) 10/31/1954 Zoster Vaccines (1 of 2) 10/31/1985 Pneumococcal Vaccine: 65+ Ye ars (1 of 1 - PCV) 10/31/2000 RSV Immunization or 60+ Years (1 - 1-dose 75+ series) 10/31/2010 COVID-19 Vaccine (2023-2 5 season) 2024 Influenza Adult (#1) 2024 Meningococcal Vaccine Aged Out No amber isaiah eligible based on patient's age to complete this topic RSV Immunizations Under 20 Months Aged Out No longer eligible based on patient's age to complete this topic
--- OUTSIDE RECORDS SUMMARY | 2024-06-01 02:22 | XMS_ITS | CONTINUITY OF CARE DOCUMENT ---
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 Lung nodules active Khushi [place] LINE RUNNER ENCOUNTERS Date Type Provider Location Encounter Diag nosis - In-person encounter Office Visit Yaw Thacker MD [facility] Lung nodulesCoronavirus infection, 05/2021 - In-person encounter Office Visit Yaw Thacker MD [facility] - In-person encounter Office Visit Yaw Thacker MD [facility] - In-person encounter Office Visit Yaw Thacker MD [facility] - In-person encounter Office Visit Yaw Thacker MD [facility] - In-person encounter Office Visit Yaw Thacker MD [facility] Carotid artery disease s/p L CEA - In-person encounter Office Visit Yaw Thacker MD [facility] CAD-09/08 CAROTID NEGPreoperative cardiovascular examinationClaudication, intermittent - In-person encounter Office Visit Yaw Thacker MD [facility] - In-person encounter Office Visit Yaw Thacker MD [facility] Dizziness - In-person encounter Office Visit Yaw Thacker MD [facility] - In-person encounter Office Visit Yaw Thacker MD [facility] - In-person encounter Office Visit Yaw Thacker MD [facility] - In-person encounter Office Visit Yaw Thacker MD [facility] - In-person encounter Office Visit Yaw Thacker MD [facility] Hyperlipidemia - In-person encounter Office Visit Yaw Thacker MD [facility] - In-person encounter Office Visit Yaw Thacker MD [facility] Leg numbness - In-person encounter Office Visit Yaw Thacker MD [facility] - In-person encounter Office Visit Yaw Thacker MD [facility] - In-person encounter Office Visit Yaw Thacker MD [facility] SHORTNESS OF BREATH - In-person encounter Office Visit Yaw Thackre MD [facility] - In-person encounter Office Visit Yaw Thacker MD [facility] - In-person encounter Office Visit Yaw Thacker MD [facility] - In-person encounter Office Visit Yaw Thacker MD [facility] - In-person encounter Office Visit Yaw Thacker MD [facility] CAD-5/12 STENT XIENCE 1 DIAG--6/ VISION STENT RCA - In-person encounter Office Visit Yaw Thacker MD [facility] - In-person encounter Office Visit Yaw Thacker MD [facility] CAD-5/12 STENT XIENCE 1 DIAG--6/11 VISION STENT RCA - In-person encounter Office Visit Yaw Thacker MD [facility] - In-person encounter Office Visit Yaw Thacker MD [facility] CAD-5/12 STENT XIENCE 1 DIAG--6/11 VISION STENT RCA - In-person encounter Office Visit Yaw Thacker MD [facility] CAD-5/12 STENT XIENCE 1 DIAG--6/ VISION STENT RCA - In-person encounter Office Visit Yaw Thacker MD [facility] VITAL SIGNS Date Observation Value Provider Body Mass Index (Ratio) 25.11 kg/m2 Johny Thacker MD blood pressure, diastolic 88 mm[Hg] Ca therine Raul blood pressure, systolic 129 mm[Hg] Cat herine [place] blood pressure, cuff size regular Ca therine Raul oxygen saturation, oximetry 92 % Leslie [place] respiratory rate E&M 14 /min Catheri ne Raul pulse rate 72 /min Leslie [place] weight E&M 175 [lb_av] Leslie [place] height E&M 70 [in_i] Leslie Raul Body Mass Index (Ratio) 26.25 kg/m2 Johny Thacker MD blood pressure, cuff size regular Cy dari West blood pressure, diastolic 70 mm[Hg] Cy dari Brett blood pressure, systolic 116 mm[Hg] Maria Teresa hernandez Brett oxygen saturation, oximetry 93 % Adry West respiratory rate E&M 16 /min Adry West pulse rate 83 /min Adry Guan l weight E&M 183 [lb_av] Adry Hickmanbel l height E&M 70 [in_i] Adry Campbel l Body Mass Index (Ratio) 26.69 kg/m2 Johny Thacker MD blood pressure, cuff size large Ke rri Michael blood pressure, diastolic 80 mm[Hg] Ke rri Michael blood pressure, systolic 110 mm[Hg] Salvador ri Michael oxygen saturation, oximetry 95 % Danielle Michael respiratory rate E&M 16 /min Danielle G paolaenenfjuvencio pulse rate 52 /min Danielle Jhonathan lder weight E&M 186 [lb_av] Danielle Royceuenenfvanna lder height E&M 70 [in_i] Danielle Orlandonemelyssa lder Body Mass Index (Ratio) 26.97 kg/m2 Johny Thacker MD blood pressure, cuff size large Ke rri Michael blood pressure, diastolic 60 mm[Hg] Ke rri Locer blood pressure, systolic 122 mm[Hg] Salvador Rodriguez oxygen saturation, oximetry 93 % Danielle Rodriguez respiratory rate E&M 18 /min Danielle Hwang paolavladislavjuvencio pulse rate 78 /min Danielle Ring [facility] weight E&M 188 [lb_av] Danielle Ring [facility] height E&M 70 [in_i] Danielle Ring [facility] Body Mass Index (Ratio) 27.55 kg/m2 Johny Thacker MD blood pressure, diastolic 82 mm[Hg] Cy bryannamichael West blood pressure, systolic 141 mm[Hg] Maria Teresa hernandez [place] pulse rate 80 /min Adry rand oxygen saturation, oximetry 95 % Adry West blood pressure, cuff size regular Cy dari [place] respiratory rate E&M 18 /min Adry West weight E&M 192 [lb_av] Adry rand height E&M 70 [in_i] Adry Hickmanbel l Body Mass Index (Ratio) 27.69 kg/m2 oJhny Thacker MD pulse rate 94 /min Malgorzata Block blood pressure, diastolic 66 mm[Hg] Br ittany Block blood pressure, systolic 120 mm[Hg] Viv ttany Block oxygen saturation, oximetry 97 % Malgorzata Block weight E&M 193 [lb_av] Malgorzata Block blood pressure, resting No Brit herman Block respiratory rate E&M 16 /min Brittan y Block height E&M 70 [in_i] Malgorzata Faustin Body Mass Index (Ratio) 27.12 kg/m2 Ford Mendoza blood pressure, diastolic 90 mm[Hg] Da nathalie Hanh blood pressure, systolic 138 mm[Hg] Dac ia Hanh oxygen saturation, oximetry 94 % Damari Hanh respiratory rate E&M 16 /min Damari V oss pulse rate 86 /min Damari Hanh weight E&M 189 [lb_av] Damari Hanh height E&M 70 [in_i] Damari Hanh Body Mass Index (Ratio) 27.26 kg/m2 Will mahendra W Lucianakaig blood pressure, cuff size regular Ke [facility]ri [facility] blood pressure, diastolic 77 mm[Hg] Ke rri [facility] blood pressure, systolic 142 mm[Hg] Salvador ri [facility] hospitaltwyla oxygen saturation, oximetry 98 % Danielle Rodriguez respiratory rate E&M 18 /min Danielle maldonado pulse rate 85 /min Danielle Ring er weight E&M 190 [lb_av] Danielle Jhonathan er height E&M 70 [in_i] Danielle Ring er Body Mass Index (Ratio) 27.14 kg/m2 Johny Thacker MD blood pressure, diastolic 70 mm[Hg] Robert Thomas blood pressure, systolic 129 mm[Hg] Valentina Thomas oxygen saturation, oximetry 96 % Nate Thomas respiratory rate E&M 18 /min Marta Thomas pulse rate 86 /min Nate nuñez weight E&M 189.2 [lb_av] Nate toure height E&M 70 [in_i] Nate nuñez Body Mass Index (Ratio) 27.06 kg/m2 Johny Thacker MD blood pressure, diastolic 74 mm[Hg] Robert Thomas blood pressure, systolic 122 mm[Hg] Valentina Thomas oxygen saturation, oximetry 94 % Nate Thomas respiratory rate E&M 18 /min Marta Thomas pulse rate 88 /min Nate nuñez weight E&M 188.6 [lb_av] Nate toure height E&M 70 [in_i] Nate nuñez blood pressure, diastolic 60 mm[Hg] Robert Thomas blood pressure, systolic 110 mm[Hg] Valentina Thomas pulse rate 70 /min Nate nuñez oxygen saturation, oximetry 96 % Nate Thomas respiratory rate E&M 18 /min Marta Thomas Body Mass Index (Ratio) 27.98 kg/m2 Misa Thomas weight E&M 195 [lb_av] Nate nuñez blood pressure, diastolic 78 mm[Hg] Jacob Rodriguez blood pressure, systolic 160 mm[Hg] Salvador Rodriguez pulse rate 79 /min Danielle Ring er oxygen saturation, oximetry 95 % Danielle Rodriguez respiratory rate E&M 16 /min Danielle maldonado Body Mass Index (Ratio) 27.69 kg/m2 Barrera juan Rodriguez weight E&M 193 [lb_av] Danielle Ring lder blood pressure, diastolic 73 mm[Hg] Robert Thomas blood pressure, systolic 133 mm[Hg] Valentina Thomas pulse rate 74 /min Nate Alvarado nson oxygen saturation, oximetry 94 % Nate Thomas respiratory rate E&M 16 /min Marta Thomas Body Mass Index (Ratio) 29.18 kg/m2 Misa Thomas weight E&M 203.4 [lb_av] Nate Macedo enson blood pressure, diastolic 76 mm[Hg] Nm deloris Bryson blood pressure, systolic 135 mm[Hg] Jaye cardozo Bryson pulse rate 60 /min Milvia Bryson oxygen saturation, oximetry 96 % Milvia Bryson respiratory rate E&M 14 /min Milvia Bryson Body Mass Index (Ratio) 28.26 kg/m2 June choudhury Bryson weight E&M 197 [lb_av] Milvia Bryson blood pressure, diastolic 65 mm[Hg] Robert Thomas blood pressure, systolic 112 mm[Hg] Valentina Thomas Body Mass Index (Ratio) 27.92 kg/m2 Misa Thomas pulse rate 65 /min Nate Alvarado giovannion oxygen saturation, oximetry 95 % Nate Thomas respiratory rate E&M 18 /min Marta Thomas weight E&M 194.6 [lb_av] Nate Remington lombardoon blood pressure, diastolic 72 mm[Hg] Robert Woodwardguerda Thomas blood pressure, systolic 127 mm[Hg] Valentina Briannechung Thomas Body Mass Index (Ratio) 28.03 kg/m2 Misa Thomas pulse rate 67 /min Nate Alvarado giovannion oxygen saturation, oximetry 98 % Nate Thomas respiratory rate E&M 18 /min MisaBelen roberts Thomas weight E&M 195.4 [lb_av] Nate toure Body Mass Index (Ratio) 29.55 kg/m2 Barrera i Michael blood pressure, diastolic 73 mm[Hg] Jacob rrjuan Michael blood pressure, systolic 126 mm[Hg] Salvador helms Michael pulse rate 63 /min Danielle Ring jamarier oxygen saturation, oximetry 94 % Danielle Michael respiratory rate E&M 18 /min Danielle Hwang paolastephandiego weight E&M 206 [lb_av] Danielle Roycestephenjuanjosevanna jamarier Body Mass Index (Ratio) 27.98 kg/m2 Destiny garcia Suyapa pulse rate 73 /min Jazmin Dale oxygen saturation, oximetry 96 % Jazmin Dale respiratory rate E&M 17 /min Jazmin Suyapa weight E&M 195 [lb_av] Jazmin Dale blood pressure, diastolic 73 mm[Hg] Reyes pickett Dale blood pressure, systolic 122 mm[Hg] [facility] sabine Dale pulse rate #2 74 [facility] blood pressure, dey tolic, second observation 71 mm[Hg] [facility] blood pressure, syst olic, second observation 108 mm[Hg] [facility] oxygen saturation, oximetry 97 % [facility] pulse rate 77 /min [facility] blood pressure, diastolic 71 mm[Hg] Vi ctoria [facility] blood pressure, systolic 133 mm[Hg] Fadi richard [facility] pulse rate #2 69 [facility] blood pressure, dey tolic, second observation 66 mm[Hg] [facility] blood pressure, syst olic, second observation 108 mm[Hg] [facility] oxygen saturation, oximetry 97 % [facility] pulse rate 77 /min [facility] blood pressure, diastolic 81 mm[Hg] Vi ctoria Tebid blood pressure, systolic 117 mm[Hg] Fadi richard Tebid pulse rate #2 69 Stout bid blood pressure, dey tolic, second observation 93 mm[Hg] Radha Tebid blood pressure, syst olic, second observation 152 mm[Hg] Radha Tebid oxygen saturation, oximetry 97 % Stout bid pulse rate 75 /min Stout d blood pressure, diastolic 97 mm[Hg] Vi ctoria Tebid blood pressure, systolic 168 mm[Hg] Fadi richard Tebid pulse rate #2 57 Stout d blood pressure, dey tolic, second observation 70 mm[Hg] [facility], second observation 133 mm[Hg] Stout Tebid oxygen saturation, oximetry 97 % Stout d pulse rate 55 /min Stout Tebid blood pressure, diastolic 87 mm[Hg] Vi ctoria Tebid blood pressure, systolic 126 mm[Hg] Fadi richard Tebid pulse rate #2 73 Stout d blood pressure, dey tolic, second observation 73 mm[Hg] [facility], syst olic, second observation 118 mm[Hg] Stout Tebid oxygen saturation, oximetry 97 % Stout Ted pulse rate 56 /min Stout Tebid blood pressure, diastolic 68 mm[Hg] Vi ctoria Tebid blood pressure, systolic 133 mm[Hg] Fadi richard Tebid pulse rate #2 72 [facility], dey tolic, second observation 71 mm[Hg] Stout Tebid blood pressure, syst olic, second observation 124 mm[Hg] Stout Tebid oxygen saturation, oximetry 97 % Stout Tebid pulse rate 78 /min Radha Tebid blood pressure, diastolic 95 mm[Hg] Vi ctoria Tebid blood pressure, systolic 153 mm[Hg] Fadi richard Tebid pulse rate #2 75 Radha Tebid blood pressure, dey tolic, second observation 66 mm[Hg] Radha Tebid blood pressure, syst olic, second observation 130 mm[Hg] Radha Tebid oxygen saturation, oximetry 97 % Radha Tebid pulse rate 75 /min Stout Tebid blood pressure, diastolic 79 mm[Hg] Vi ctoria Tebid blood pressure, systolic 143 mm[Hg] Fadi richard Tebid pulse rate #2 87 Stout Tebid blood pressure, dey tolic, second observation 92 mm[Hg] Radha Tebid blood pressure, syst olic, second observation 109 mm[Hg] Radha Tebid oxygen saturation, oximetry 97 % Radha Tebid pulse rate 88 /min Stout Tebid blood pressure, diastolic 62 mm[Hg] Vi ctoria Tebid blood pressure, systolic 119 mm[Hg] Fadi richard Tebid pulse rate #2 71 Stout Tebid blood pressure, dey tolic, second observation 79 mm[Hg] Radha Tebid blood pressure, syst olic, second observation 128 mm[Hg] Radha Tebid oxygen saturation, oximetry 97 % Stout Tebid pulse rate 77 /min Stout Tebid blood pressure, diastolic 100 mm[Hg] Vi ctoria Tebid blood pressure, systolic 134 mm[Hg] Fadi richard Tebid pulse rate #2 77 Stout Tebid blood pressure, dey tolic, second observation 72 mm[Hg] Radha Tebid blood pressure, syst olic, second observation 134 mm[Hg] Radha Tebid oxygen saturation, oximetry 97 % Radha Tebid pulse rate 67 /min Radha Tebid blood pressure, diastolic 91 mm[Hg] Vi ctoria Tebid blood pressure, systolic 134 mm[Hg] Fadi richard Tebid pulse rate #2 75 Radha Tebid blood pressure, dey tolic, second observation 75 mm[Hg] Radha Tebid blood pressure, syst olic, second observation 136 mm[Hg] Radha Tebid oxygen saturation, oximetry 97 % Radha Tebid pulse rate 82 /min Radha Tebid blood pressure, diastolic 84 mm[Hg] Vi ctoria Tebid blood pressure, systolic 156 mm[Hg] Fadi richard Tebid pulse rate #2 78 Stout Tebid blood pressure, dey tolic, second observation 76 mm[Hg] Radha Tebid blood pressure, syst olic, second observation 126 mm[Hg] Radha Tebid oxygen saturation, oximetry 97 % Radha Tebid pulse rate 68 /min Stout Tebid blood pressure, diastolic 82 mm[Hg] Vi ctoria Tebid blood pressure, systolic 121 mm[Hg] Fadi richard Tebid pulse rate #2 75 Radha Tebid blood pressure, dey tolic, second observation 70 mm[Hg] Radha Tebid blood pressure, syst olic, second observation 127 mm[Hg] Radha Tebid oxygen saturation, oximetry 97 % Radha Tebid pulse rate 73 /min Radha Tebid blood pressure, diastolic 79 mm[Hg] Vi ctoria Tebid blood pressure, systolic 141 mm[Hg] Fadi richard Tebid pulse rate #2 68 Stout Tebid blood pressure, dey tolic, second observation 76 mm[Hg] Radha d blood pressure, syst olic, second observation 128 mm[Hg] Radha d oxygen saturation, oximetry 97 % Radha d pulse rate 71 /min Radha d blood pressure, diastolic 79 mm[Hg] Vi ctoria Tebid blood pressure, systolic 132 mm[Hg] Fadi richard Tebid pulse rate #2 69 Stout blood pressure, dey tolic, second observation 59 mm[Hg] Radha blood pressure, syst olic, second observation 112 mm[Hg] Radha d oxygen saturation, oximetry 97 % Radha pulse rate 75 /min Radha blood pressure, diastolic 66 mm[Hg] Vi [facility] Ted blood pressure, systolic 124 mm[Hg] Fadi richard Ted pulse rate #2 61 Stout blood pressure, dey tolic, second observation 65 mm[Hg] Radha d blood pressure, syst olic, second observation 124 mm[Hg] Radha d oxygen saturation, oximetry 97 % Radha pulse rate 66 /min Radha blood pressure, diastolic 72 mm[Hg] Vi ctoria Tebid blood pressure, systolic 133 mm[Hg] Fadi richard Tebid pulse rate #2 79 Stout d blood pressure, dey tolic, second observation 77 mm[Hg] Radha d blood pressure, syst olic, second observation 124 mm[Hg] Radha d oxygen saturation, oximetry 97 % Radha d pulse rate 72 /min Stout d blood pressure, diastolic 74 mm[Hg] Vi ctoria Tebid blood pressure, systolic 141 mm[Hg] Fadi richard Tebid pulse rate #2 71 Radha Tebid blood pressure, dey tolic, second observation 66 mm[Hg] Radha Tebid blood pressure, syst olic, second observation 107 mm[Hg] Radha Tebid oxygen saturation, oximetry 97 % Radha Tebid pulse rate 70 /min Stout Tebid blood pressure, diastolic 78 mm[Hg] Vi ctoria Tebid blood pressure, systolic 137 mm[Hg] Fadi richard Tebid pulse rate #2 75 [facility], dey tolic, second observation 86 mm[Hg] Radha Tebid blood pressure, syst olic, second observation 138 mm[Hg] [facility], oximetry 97 % [facility] 79 /min [facility], diastolic 76 mm[Hg] Vi ctoria Tebid blood pressure, systolic 130 mm[Hg] [facility]2 71 Stout Tebid blood pressure, dey tolic, second observation 71 mm[Hg] Radha Tebid blood pressure, syst olic, second observation 101 mm[Hg] Radha Tebid oxygen saturation, oximetry 97 % [facility] 68 /min Stout Tebid blood pressure, diastolic 76 mm[Hg] Vi ctoria Tebid blood pressure, systolic 139 mm[Hg] Fadi richard Tebid pulse rate #2 94 [facility], dey tolic, second observation 57 mm[Hg] Stout Tebid blood pressure, syst olic, second observation 114 mm[Hg] Stout Tebid oxygen saturation, oximetry 97 % [facility] 96 /min [facility], diastolic 72 mm[Hg] Vi ctoria Tebid blood pressure, systolic 116 mm[Hg] Fadi richard Tebid pulse rate #2 76 [facility], dey tolic, second observation 84 mm[Hg] Radha bid blood pressure, syst olic, second observation 122 mm[Hg] [facility], oximetry 98 % [facility] 71 /min [facility], diastolic 79 mm[Hg] Vi ctoria Tebid blood pressure, systolic 134 mm[Hg] Fadi richard Tebid pulse rate #2 70 [facility], dey tolic, second observation 71 mm[Hg] [facility], syst olic, second observation 119 mm[Hg] [facility], oximetry 98 % [facility] 77 /min [facility], diastolic 78 mm[Hg] [facility] Tebid blood pressure, systolic 125 mm[Hg] Fadi richard Tebid pulse rate #2 77 Stout bid blood pressure, dey tolic, second observation 70 mm[Hg] [facility], syst olic, second observation 125 mm[Hg] [facility], oximetry 98 % [facility] 80 /min [facility], diastolic 72 mm[Hg] Vi ctoria Tebid blood pressure, systolic 135 mm[Hg] Fadi richard Tebid pulse rate #2 64 [facility], dey tolic, second observation 75 mm[Hg] [facility], syst olic, second observation 114 mm[Hg] [facility], oximetry 98 % [facility] 60 /min Radha Tebid blood pressure, diastolic 77 mm[Hg] Vi ctoria Tebid blood pressure, systolic 125 mm[Hg] Fadi richard Tebid blood pressure, diastolic 70 mm[Hg] Ja guerda Martinez RN blood pressure, systolic 116 mm[Hg] Edilberto Martinez RN pulse rate 73 /min Edilberto Martinez RN oxygen saturation, oximetry 97 % Edilberto Martinez RN respiratory rate E&M 16 /min Edilberto saini RN Body Mass Index (Ratio) 28.80 kg/m2 Edilberto Martinez RN weight E&M 200 [lb_av] Edilberto Martinez RN pulse rate #2 77 Stout Tebid blood pressure, dey tolic, second observation 68 mm[Hg] Radha Tebid blood pressure, syst olic, second observation 126 mm[Hg] Radha Tebid oxygen saturation, oximetry 98 % Radha Tebid pulse rate 84 /min Radha Tebid blood pressure, diastolic 85 mm[Hg] Vi ctoria Tebid blood pressure, systolic 134 mm[Hg] Fadi richard Tebid pulse rate #2 77 Radha Tebid blood pressure, dey tolic, second observation 70 mm[Hg] Radha Tebid blood pressure, syst olic, second observation 121 mm[Hg] Radha Tebid oxygen saturation, oximetry 98 % Radha Tebid pulse rate 74 /min Radha Tebid blood pressure, diastolic 74 mm[Hg] Vi ctoria Tebid blood pressure, systolic 131 mm[Hg] Afdi richard Tebid pulse rate #2 71 Stout Tebid blood pressure, dey tolic, second observation 65 mm[Hg] Radha Tebid blood pressure, syst olic, second observation 126 mm[Hg] Radha Tebid oxygen saturation, oximetry 98 % Radha Tebid pulse rate 62 /min Radha Tebid blood pressure, diastolic 74 mm[Hg] Vi ctoria Tebid blood pressure, systolic 158 mm[Hg] Fadi richard Tebid pulse rate #2 71 Radha Tebid blood pressure, dey tolic, second observation 77 mm[Hg] Radha Tebid blood pressure, syst olic, second observation 102 mm[Hg] Radha Tebid oxygen saturation, oximetry 98 % Radha Tebid pulse rate 78 /min Stout Tebid blood pressure, diastolic 79 mm[Hg] Vi ctoria Tebid blood pressure, systolic 110 mm[Hg] Fadi richard Tebid pulse rate #2 77 Stout Tebid blood pressure, dey tolic, second observation 66 mm[Hg] Radha Tebid blood pressure, syst olic, second observation 103 mm[Hg] Radha Tebid oxygen saturation, oximetry 98 % Stout Tebid pulse rate 70 /min Stout Tebid blood pressure, diastolic 78 mm[Hg] Vi ctoria Tebid blood pressure, systolic 123 mm[Hg] Fadi richard Tebid pulse rate #2 71 Radha Tebid blood pressure, dey tolic, second observation 77 mm[Hg] Radha Tebid blood pressure, syst olic, second observation 143 mm[Hg] Radha Tebid oxygen saturation, oximetry 98 % Radha Tebid pulse rate 76 /min Stout Tebid blood pressure, diastolic 82 mm[Hg] Vi ctoria Tebid blood pressure, systolic 152 mm[Hg] Fadi richard Tebid pulse rate #2 67 Stout Tebid blood pressure, dey tolic, second observation 62 mm[Hg] Radha blood pressure, syst olic, second observation 100 mm[Hg] Radha oxygen saturation, oximetry 98 % Radha pulse rate 75 /min Radha blood pressure, diastolic 82 mm[Hg] Vi ctoria Tebid blood pressure, systolic 156 mm[Hg] Fadi richard Ted pulse rate #2 80 Stout blood pressure, dey tolic, second observation 75 mm[Hg] Radha blood pressure, syst olic, second observation 118 mm[Hg] Radha oxygen saturation, oximetry 98 % Radha pulse rate 85 /min Radha blood pressure, diastolic 79 mm[Hg] Vi mooria Ted blood pressure, systolic 168 mm[Hg] Fadi richard Ted pulse rate #2 78 Stout blood pressure, dey tolic, second observation 68 mm[Hg] Radha blood pressure, syst olic, second observation 107 mm[Hg] Radha oxygen saturation, oximetry 98 % Radha pulse rate 76 /min Radha blood pressure, diastolic 71 mm[Hg] Vi ctoria Ted blood pressure, systolic 116 mm[Hg] Fadi richard Ted pulse rate #2 76 Stout blood pressure, dey tolic, second observation 66 mm[Hg] Radha d blood pressure, syst olic, second observation 111 mm[Hg] Radha d oxygen saturation, oximetry 98 % Radha pulse rate 77 /min Stout blood pressure, diastolic 76 mm[Hg] Vi ctoria Tebid blood pressure, systolic 120 mm[Hg] Fadi richard Tebid blood pressure, diastolic 63 mm[Hg] Howard Martinez RN blood pressure, systolic 114 mm[Hg] Edilberto Martinez RN pulse rate 53 /min Edilberto Martinez RN oxygen saturation, oximetry 97 % Edilberto Martinez RN respiratory rate E&M 16 /min Edilberto sainimarbella RN Body Mass Index (Ratio) 29.09 kg/m2 Edilberto Martinez RN weight E&M 202 [lb_av] Edilberto Martinez RN Body Mass Index (Ratio) 28.08 kg/m2 Larry ph [place] blood pressure, diastolic 78 mm[Hg] Yue seph [place] blood pressure, systolic 130 mm[Hg] Jordon eph [place] pulse rate 51 /min Griffin [place] oxygen saturation, oximetry 95 % Griffin [place] respiratory rate E&M 16 /min Griffin [place] weight E&M 195 [lb_av] Griffin [place] Body Mass Index (Ratio) 26.93 kg/m2 Larry ph [place] blood pressure, diastolic 86 mm[Hg] Yue seph [place] blood pressure, systolic 130 mm[Hg] Jordon eph [place] pulse rate 55 /min Griffin [place] oxygen saturation, oximetry 98 % Griffin [place] respiratory rate E&M 20 /min Griffin [place] weight E&M 187 [lb_av] Griffin [place] Body Mass Index (Ratio) 27.07 kg/m2 Larry ph [place] blood pressure, diastolic 86 mm[Hg] Yue seph [place] blood pressure, systolic 142 mm[Hg] Jordon eph [place] pulse rate 69 /min Griffin [place] oxygen saturation, oximetry 96 % Griffin [place] respiratory rate E&M 20 /min Griffin [place] weight E&M 188 [lb_av] Griffin [place] height E&M 70 [in_i] Griffin [place] blood pressure, diastolic 51 mm[Hg] Jones Morton blood pressure, systolic 112 mm[Hg] Ethan underwood Morton pulse rate 56 /min Bhavesh Morton oxygen saturation, oximetry 98 % Bhavesh Morton respiratory rate E&M 16 /min Bhavesh Villafuerteran blood pressure, diastolic 66 mm[Hg] Howard Martinez RN blood pressure, systolic 103 mm[Hg] Edilberto Martinez RN pulse rate 49 /min Edilberto Martinez RN oxygen saturation, oximetry 95 % Edilberto Martinez RN respiratory rate E&M 16 /min Edilberto lock RN weight E&M 184 [lb_av] Edilberto Martinez RN blood pressure, diastolic 53 mm[Hg] Yue eden [place] blood pressure, systolic 108 mm[Hg] Jordon sanford [place] pulse rate 76 /min Griffin [place] oxygen saturation, oximetry 94 % Griffin [place] respiratory rate E&M 20 /min Griffin [place] weight E&M 196 [lb_av] Griffin [place] blood pressure, diastolic 57 mm[Hg] Howard Martinez RN blood pressure, systolic 107 mm[Hg] Edilberto Martinez RN pulse rate 70 /min Edilberto Martinez RN oxygen saturation, oximetry 96 % Edilberto Martinez RN respiratory rate E&M 16 /min Edilberto lock RN weight E&M 183 [lb_av] Edilberto Martinez RN blood pressure, diastolic, left arm 65 mm [Hg] Edilberto Martinez RN blood pressure, systolic, left arm 104 mm [Hg] Edilberto Martinez RN blood pressure, diastolic, right arm 66 m m[Hg] Edilberto Martinez RN blood pressure, systolic, right arm 121 m m[Hg] Edilberto Martinez RN blood pressure, diastolic 66 mm[Hg] Howard croft Martinez RN blood pressure, systolic 121 mm[Hg] Edilberto Mercers RN pulse rate 16 /min Edilberto Martinez RN oxygen saturation, oximetry 94 % Edilberto Mercermarbella EVANGELISTA respiratory rate E&M 16 /min Edilberto Capo lock RN weight E&M 183 [lb_av] Edilberto Mercers RN blood pressure, diastolic 65 mm[Hg] Rogelran blood pressure, systolic 106 mm[Hg] Ethan Morton pulse rate 74 /min Ethanyemike Morton oxygen saturation, oximetry 95 % Bhavesh Morton respiratory rate E&M 18 /min Denyemike Morton weight E&M 182 [lb_av] Ethanmike Morton blood pressure, diastolic 89 mm[Hg] Robert floyd O'Chuck blood pressure, systolic 155 mm[Hg] Valentina lux O'[place] pulse rate 75 /min Mary Ellen O'Chuck oxygen saturation, oximetry 95 % Mary Ellen O'Chuck respiratory rate E&M 16 /min Mary Ellen O'Chuck weight E&M 186 [lb_av] Mary Ellen O'Chuck ALLERGIES No Known Drug Allergies RESULTS Date Observation Value Provider Reference Range Interpretation Location lipoprotein, beta, serum, point, quantitative, calculated 82 mg/dL [facility] 0-99 HDL cholesterol, serum 33 mg/dL [facility] >39 Low triglyceride, serum, random 200 mg/dL [facility] 0-149 High cholesterol, serum 149 mg/dL [facility] [id number]/04/ 08 calcium, serum 9.1 mg/dL [facility] 8.6-10.2 carbon dioxide, venous blood 26 mmol/L [facility] 20-29 chloride, serum 103 mmol/L [facility] 96-106 potassium, serum 4.0 mmol/L [facility] 3.5-5.2 sodium, serum 143 mmol/L [facility] [phone]/04/ 08 urea nitrogen/creatinine ratio, serum 16 [facility] 10-24 eGFR if 63 mL/min/{1 .73_m2} [facility] >59 eGFR if not 55 mL/min/{1 .73_m2} [facility] >59 Low creatinine, serum 1.21 mg/dL [facility] 0.76-1.27 urea nitrogen, blood 19 mg/dL [facility] 8-27 blood glucose, random 114 mg/dL [facility] 65-99 High prothrombin time (patient) 10.5 s [facility] 9.1-12.0 international normalized ratio (INR) 1.0 [facility] 0.9-1.2 basophil count, absolute 0.0 x10E3/uL [facility] 0.0-0.2 Eosinophil Absolute Count 0.1 X10E3/UL [facility] 0.0-0.4 monocyte count, blood, automated 0.6 X10E3/UL [facility] 0.1-0.9 lymphocyte count, blood, automated 1.2 X10E3/UL [facility] 0.7-3.1 Absolute Neutrophils 3.3 X10E3/UL [facility] 1.4-7.0 basophils as percent of blood leukocytes 0 % [facility] Not Estab. eosinophils as percent of blood leukocytes 2 % [facility] Not Estab. monocytes as percent of blood leukocytes 12 % [facility] Not Estab. lymphocytes as percent of blood leukocytes 23 % [facility] Not Estab. neutrophils as percent of blood leukocytes 63 % [facility] Not Estab. platelet count 206 X10E3/UL [facility] [phone]/04/ 08 red blood cell distribution width 12.5 % [facility] 11.6-15.4 mean corpuscular hemoglobin concentration, RBC 33.5 G/DL [facility] 31.5-35.7 mean corpuscular hemoglobin, RBC 33.2 pg [facility] 26.6-33.0 High mean corpuscular volume, RBC 99 fL [facility] 79-97 High hematocrit, blood 44.2 % [facility] 37.5-51.0 hemoglobin, blood 14.8 g/dL [facility] 13.0-17.7 erythrocyte (RBC) count 4.46 X10E6/UL [facility] 4.14-5.80 leukocyte count, blood 5.3 X10E3/UL [facility] 3.4-10.8 red blood cell distribution width, size density 51.8 fL [facility] - immature granulocytes, percentage of total cells, blood 0.2 % [facility] cells as percent of blood leukocytes 0.4 % [facility] - red blood cell (erythrocyte) count, per high power field 0.0 10*3/UL [facility] - eosinophils as percent of blood leukocytes 3.0 % [facility] neutrophils as percent of blood leukocytes 52.6 % [facility] - Absolute Neutrophils 2.6 CELLS/UL [facility] 1.5 - 7.8 basophils as percent of blood leukocytes 0.8 % [facility] - Absolute Basophils 0.0 CELLS/UL [facility] 0.0 - 0.2 monocytes as percent of blood leukocytes 9.9 % [facility] - Absolute Monocytes 0.5 CELLS/UL [facility] 0.2 - 1.0 lymphocytes as percent of blood leukocytes 33.5 % [facility] - Absolute Lymphocytes 1.7 CELLS/UL [facility] 0.9 - 3.9 mean platelet volume 10.0 (?) [facility] 245.0 THOUSAND/ UL [facility] 100.0 - 400.0 mean corpuscular hemoglobin concentration, RBC 31.4 G/DL [facility] 31.0 - 38.0 mean corpuscular hemoglobin, RBC 32.0 pg [facility] 25.0 - 35.0 mean corpuscular volume, RBC 102.1 fL [facility] 75.0 - 100.0 High hematocrit, blood 49.1 % [facility] 35.0 - 55.0 hemoglobin, blood 15.4 g/dL [facility] 11.5 - 16.5 erythrocyte count, whole blood 4.8 MILLION/U L [facility] 3.5 - 5.5 prothrombin time (patient) 10.3 s [facility] 9.0 - 11.5 international normalized ratio (INR) 1.0 [facility] 0.9 - 1.1 urea nitrogen/creatinine ratio, serum 14.0 [facility] - Estimated Glomerular Filtration Rate (calc) 48.0 (?) [facility] 59.0 - Low chloride, serum 102.5 mmol/L [facility] 98.0 - 107.0 potassium, serum 4.6 mmol/L [facility] 3.5 - 5.1 sodium, serum 141.0 mmol/L [facility] 136.0 - 145.0 creatine, serum 1.5 mg/dL [facility] 0.7 - 1.2 High carbon dioxide, venous blood 27.0 mmol/L [facility] 23.0 - 31.0 calcium, serum 9.7 mg/dL [facility] 8.6 - 10.2 urea nitrogen, blood 21.0 mg/dL [facility] 8.0 - 23.0 Glucose Urine 94.0 mg/dL [facility] 74.0 - 99.0 platelet count 207 10*3/mm3 Gage Gonsalez hematocrit, blood 43.7 % [facility] international normalized ratio (INR) 1.0 [facility] alanine aminotransferase (SGPT), serum 32 1/L [facility] aspartate aminotransferase (SGOT), serum 20 1/L [facility] creatinine, serum 1.09 mg/dL [facility] potassium, serum 4.4 mmol/L [facility] sodium, serum 141 mmol/L [facility] LDL cholesterol, serum 83 mg/dL [facility] cholesterol, serum 165 mg/dL [facility] prothrombin time (patient) 10.6 s [facility] international normalized ratio (INR) 1.0 [facility] creatinine, serum 1.24 mg/dL [facility] urea nitrogen, blood 20 mg/dL [facility] carbon dioxide, serum, total 26 mmol/L [facility] chloride, serum 104 mmol/L [facility] potassium, serum 4.5 mmol/L [facility] sodium, serum 140 mmol/L [facility] platelet count 251 10*3/uL [facility] hematocrit, blood 42.8 % [facility] hemoglobin, blood 14.1 g/dL [facility] erythrocyte (RBC) count 4.50 10*6/mm3 [facility] leukocyte count, blood 7.2 10*3/mm3 [facility] anion gap, serum 10.3 [facility] estimated glomerular filtration rate 58 mL/min [facility] blood glucose, fasting 99 mg/dL [facility] calcium, serum 9.0 mg/dL [facility] creatinine, serum 1.28 mg/dL [facility] urea nitrogen, blood 26.5 mg/dL [facility] carbon dioxide, serum, total 27 mmol/L [facility] chloride, serum 104 mmol/L [facility] potassium, serum 4.3 mmol/L [facility] sodium, serum 137 mmol/L [facility] platelet count 239 10*3/uL [facility] red blood cell distribution width 13.4 % [facility] mean corpuscular hemoglobin concentration, RBC 33.4 g/dL [facility] mean corpuscular hemoglobin, RBC 32.3 pg [facility] mean corpuscular volume, RBC 96.8 fL [facility] hematocrit, blood 42.5 % [facility] hemoglobin, blood 14.2 g/dL [facility] erythrocyte (RBC) count 4.39 10*6/mm3 [facility] monocytes as percent of blood leukocytes 8.7 % [facility] lymphocytes as percent of blood leukocytes 23.0 % [facility] leukocyte count, blood 7.1 10*3/mm3 [facility] international normalized ratio (INR) 1.4 [facility] [place]rombin [place] (patient) 13.8 s [facility] [place] low density lipoproteins 33 mg/dL [facility] triglyceride, serum, fasting 163 mg/dL [facility] HDL cholesterol, serum 39 mg/dL [facility] LDL cholesterol, serum 131 mg/dL [facility] cholesterol, serum 203 mg/dL [facility] thyroid stimulating hormone, serum 1.720 u[IU]/mL [facility] albumin/globulin ratio, serum 1.5 [facility] protein, total, serum 7.2 g/dL [facility] albumin, serum 4.3 g/dL [facility] bilirubin, serum, total 0.3 mg/dL [facility] alkaline phosphatase, serum 88 1/L [facility] alanine aminotransferase (SGPT), serum 18 1/L [facility] aspartate aminotransferase (SGOT), serum 16 1/L [facility] calcium, serum 9.6 mg/dL [facility] blood glucose, fasting 82 mg/dL [facility] creatinine, serum 1.25 mg/dL [facility] urea nitrogen, blood 19 mg/dL [facility] carbon dioxide, serum, total 23 mmol/L [facility] chloride, serum 103 mmol/L [facility] potassium, serum 4.1 mmol/L [facility] sodium, serum 141 mmol/L [facility] platelet count 255 10*3/uL [facility] red blood cell distribution width 14.3 % [facility] mean corpuscular hemoglobin concentration, RBC 33.7 g/dL [facility] mean corpuscular hemoglobin, RBC 31.6 pg [facility] mean corpuscular volume, RBC 94 fL [facility] hematocrit, blood 41.9 % [facility] hemoglobin, blood 14.1 g/dL [facility] erythrocyte (RBC) count 4.46 10*6/mm3 [facility] monocyte count, blood 0.6 10*3/mm3 [facility] lymphocyte count, blood 1.8 10*3/mm3 [facility] monocytes as percent of blood leukocytes 8 % [facility] lymphocytes as percent of blood leukocytes 23 % [facility] leukocyte count, blood 7.5 10*3/mm3 [facility] prostate specific antigen 3.63 ng/mL [facility] HISTORY OF MEDICATION USE Medication Status Instructions Dates Provider Indications Com ments atorvastatin 20 mg tablet active TAKE 1 TABLET BY MOUTH AT BEDTIME Мария Rivera isosorbide mononitrate 30 mg tablet extended release 24 hr active Take 1 tablet by mouth once daily Sabas Swenson omeprazole 20 mg capsule,delayed release(/EC) active Khushi Orlando NP Plavix 75 mg tablet active 1 tablet once a day Danielle Michael Vitamins B Complex capsule active once a day Danielle Michael Fish Oil 120-180 mg capsule active 1 tablet once a day Danielle Michael doxazosin 4 mg tablet active Take 1 once a day Danielle Cranemuriel gabapentin 300 mg capsule active 1 every night Danielle Michael Ventolin HFA 90 mcg/actuation HFA aerosol inhaler active 2 puff every four to six hours Danielle Michael Symbicort 160-4.5 mcg/actuation HFA aerosol inhaler active 1 puff twice a day Danielle Michael VITAMIN C CAPSULE active once a day Danielle Michael PLAVIX 75 MG ORAL TABLET completed ONE TAB. DAILY - Yaw Thacker MD vitamin E 400 unit capsule active 1 capsule by mouth once a day Adry West ASPIRIN 81 MG ORAL TABLET active 1 tablet by mouth once a day Yaw Thacker MD FERROUS SULFATE 325 (65 Fe) MG ORAL TABLET completed 1 tablet by mouth daily - Edilberto Martinez RN PROPRANOLOL HCL 20 MG ORAL TABLET completed 1 tablet by mouth twice daily - Yaw Thacker MD MULTIVITAMINS TABS active 1 tablet by mouth once a day Adry West Vitamin D3 25 mcg (1,000 unit) capsule active 1 capsule by mouth once a day Yaw Thacker MD Wellbutrin SR 150 mg tablet sustained-releas e 12 hr active 1 tablet by mouth twice a day Yaw Thacker MD Alphagan P 0.15% drops active 1 drop into both eyes once a day Adry West B-12 1000 MCG ORAL CAPSULE completed 1 capsule by mouth daily - Jazmin Dale EYE DROPS(PT DOES NOT REMEMBER NAME) completed 1 drop into each eye twice daily - Griffin Hurst LIPITOR 20 MG ORAL TABLET completed ONE TAB. DAILY - Griffin Hurst isosorbide mononitrate 30 mg tablet extended release 24 hr completed Take 1 tablet once a day - Sabas Lara atorvastatin 20 mg tablet completed Take 1 tablet by mouth every night - Мария Rivera PLAVIX 75 MG ORAL TABLET completed 1 tab by mouth daily - Yaw Thacker MD ginkgo biloba leaf extract 120 mg capsule active 1 tablet by mouth once a day Yaw Thacker MD ALEVE 220 MG ORAL TABLET completed 1 tab by mouth daily - Edilberto Martinez RN FISH OIL 1000 MG ORAL CAPSULE completed 1 cap by mouth daily - Danielle Rodriguez CALCIUM + D TABLET completed 1 tab by mouth daily - Edilberto Martinez RN OZIEL ALLERGY TABS completed 1 tablet by mouth daily - Edilberto Martinez RN DOXAZOSIN MESYLATE 4 MG ORAL TABLET completed 1 tab by mouth daily - Jazmin Dale FINASTERIDE 5 MG ORAL TABLET completed 1 tab by mouth daily - Jazmin Dale latanoprost 0.005% drops active 1 drop into both eyes once a day Adry West omeprazole 20 mg tablet,delayed release (DR/EC) active 1 tablet by mouth once a day Yaw Thacker MD SIMVASTATIN 10 MG ORAL TABLET completed 1 tab by mouth daily - Edliberto Martinez RN BUDEPRION SR 150 MG ORAL TABLET EXTENDED RELEASE 12 HOUR completed 1 tab by mouth twice daily - Edilberto Martinez RN WELLBUTRIN SR 150 MG ORAL TABLET EXTENDED RELEASE 12 HOUR completed ONE TAB TWICE DAILY - Mary Ellen Frazier SIMVASTATIN 10 MG ORAL TABLET completed ONE TAB. AT BEDTIME - Mary Ellen Frazier SOCIAL HISTORY Date Observation Value Provider social history E&M Marital Statu s: E thnicity: Smoking History: Arya mejia is a former smoker. Khushi Orlando NP social history reviewed E&M revi ewed - no changes required Khushi Orlando NP physical exercise, f requency, days per week yes Leslie Raul caffeine use, averag e drinks per day 3 /d Leslie [place] passive cigarette sm hardik exposure yes Leslie Raul smoking, year quit 1998 Leslie [place] number of years as a smoker 10 years or m ore Leslie Raul smoking history, tot al pack/year 50 Leslie [place] cigarette use yes Leslie Raul smoking status Former smoker Leslie Ot is physical exercise, f requency, days per week yes Adry West caffeine use, averag e drinks per day 3 /d Adry West passive cigarette sm hardik exposure yes Adry West smoking, year quit 1998 Adry lerner number of years as a smoker 10 years or m ore Adry Brett smoking history, tot al pack/year 50 Adry Brett cigarette use yes Adry [place] smoking status Former smoker Adry Vick enriquez social history reviewed E&M revi ewed - no changes required Yaw Thacker MD physical exercise, f requency, days per week yes Danielle Rodriguez caffeine use, averag e drinks per day 3 /d Danielle Rodriguez passive cigarette sm hardik exposure yes Danielle Rodriguez smoking, year quit 1998 Danielle tello number of years as a smoker 10 years or m ore Danielle Rodriguez smoking history, tot al pack/year 50 Danielle Cranemuriel cigarette use yes Danielle henning smoking status Former smoker Danielle Strong diego drug use no Yaw Thacker MD alcohol use no Yaw Thacker MD social history E&M Marital Statu s: E thnicity: Smoking History: Arya mejia is a former smoker. Yaw Thacker MD social history reviewed E&M revi ewed - no changes required Yaw Thacker MD physical exercise, f requency, days per week yes Danielle Cranemuriel caffeine use, averag e drinks per day 3 /d Danielle Cranemuriel passive cigarette sm hardik exposure yes Danielle Michael smoking, year quit 1998 Danielle Cranejericho tello number of years as a smoker 10 years or m ore Danielle Cranemuriel smoking history, tot al pack/year 50 Danielle Cranemuriel cigarette use yes Danielle henning smoking status Former smoker Danielle Strong die[place] drug use no Yaw Thacker MD alcohol use no Yaw Thacker MD social history E&M Marital Statu s: E thnicity: Smoking History: Arya mejia is a former smoker. Yaw Thacker MD social history reviewed E&M revi ewed - no changes required Yaw Thacker MD physical exercise, f requency, days per week yes Adry West caffeine use, averag e drinks per day 3 /d Adry West passive cigarette sm hardik exposure yes Adry West smoking, year quit 1998 Adry lerner number of years as a smoker 10 years or m ore Adry West smoking history, tot al pack/year 50 Adry West cigarette use yes Adry [place] smoking status Former smoker Adry enriquez social history E&M Marital Statu s: E thnicity: Smoking History: P athaydee is a former smoker. Yaw Thacker MD social history reviewed E&M revi ewed - no changes required Yaw Thacker MD physical exercise, f requency, days per week yes Malgorzata Block caffeine use, averag e drinks per day 3 /d Malgorzata Ramin passive cigarette sm hardik exposure yes Malgorzata [facility] smoking, year quit 1998 [facility] number of years as a smoker 10 years or m [facility] Malgorzata Faustin smoking history, tot al pack/year 50 Malgorzata Block cigarette use yes [facility] smoking status Former smoker Malgorzata nguyễn smoking, year quit 1998 Alexandre Mendoza cigarette use yes Alexandre aviles smoking status Former smoker Alexandre Lizzy jerez social history E&M Marital Statu s: E thnicity: Smoking History: Arya mejia is a former smoker. Alexandre Mendoza social history reviewed E&M revi ewed - no changes required Alexandre Mendoza physical exercise, f requency, days per week yes Damari Hanh alcohol use, average drinks per day none Damari Hanh alcohol use, type Beer, very seldom Damari Hanh alcohol use no Damari Hanh caffeine use, averag e drinks per day 3 /d Damari Hanh drug use no Damari Hanh passive cigarette sm hardik exposure yes Damari Hanh social history E&M Marital Statu s: E thnicity: Arya mejia is a former smoker. Smoking History: Arya mejia is a former smoker. Yaw hTacker MD social history reviewed E&M revi ewed - no changes required Yaw Thacker MD physical exercise, f requency, days per week yes Danielle Michael alcohol use, average drinks per day none Danielle Michael alcohol use, type Beer, very seldom Danielle Michael alcohol use no Danielle Jhonathan kauffmaner caffeine use, averag e drinks per day 3 /d Danielle Michael drug use no Danielle Jhonathan adkins passive cigarette sm hardik exposure yes Danielle Michael smoking status Former smoker Danielle Cranestephen cortez social history reviewed E&M revi ewed - no changes required Yaw Thacker MD physical exercise, f requency, days per week yes Nate Thomas alcohol use, average drinks per day none Nate Thomas alcohol use, type Beer, very seldom Areli llen Thomas alcohol use no Nate nuñez caffeine use, averag e drinks per day 3 /d Nate Thomas drug use no Nate nuñez passive cigarette sm hardik exposure yes Nate Thomas smoking status Former smoker Nate [facility] [place] social history reviewed E&M revi ewed - no changes required Khushi Orlando NP physical exercise, f requency, days per week yes Nate Thomas alcohol use, average drinks per day none Nate Macedoenson alcohol use, type Beer, very seldom Areli llen Thomas alcohol use no Nate Macedoe giovannion caffeine use, averag e drinks per day 3 /d NateJosey Thomas drug use no Nate nuñez passive cigarette sm hardik exposure yes Nate Thomas smoking status Former smoker Nate Mckeon social history reviewed E&M revi ewed - no changes required Yaw Thacker MD physical exercise, f requency, days per week yes Nate Thomas alcohol use, average drinks per day none Nate Thomas alcohol use, type Beer, very seldom Areli Thomas alcohol use no Nate Alvarado giovannikatherin caffeine use, averag e drinks per day 3 /d Nate Thomas drug use no Nate Alvarado [place] passive cigarette sm hardik exposure yes Nate Thomas smoking status Former smoker Nate Mckeon number of grandchildren Yaw Thacker MD U shanell Thacker MD social history reviewed E&M revi ewed - no changes required Yaw Thacker MD physical exercise, f requency, days per week yes Danielle Rodriguez alcohol use, average drinks per day none Danielle Rodriguez alcohol use, type Beer, very seldom Danielle Rodriguez alcohol use no Danielle adkins caffeine use, averag e drinks per day 3 /d Danielle Rodriguez drug use no Danielle adkins passive cigarette sm hardik exposure yes Danielle Rodriguez smoking status Former smoker Danielle cortez social history reviewed E&M revi ewed - no changes required Yaw Thacker MD physical exercise, f requency, days per week yes Nate Thomas alcohol use, average drinks per day none Nate Thomas alcohol use, type Beer, very seldom Areli llen Thomas alcohol use no Nate Alvarado nson caffeine use, averag e drinks per day 3 /d Nate Thomas drug use no Nate Alvarado giovannikatherin passive cigarette sm hardik exposure yes NateJosey Thomas smoking status Former smoker Nate Mckeon social history reviewed E&M revi ewed - no changes required Yaw Thacker MD physical exercise, f requency, days per week yes Milvia Adelaide alcohol use, average drinks per day none Milvia Bryson alcohol use, type Beer, very seldom Kaity maier Bryson alcohol use no Milvia Bryson caffeine use, averag e drinks per day 3 /d Milvia Bryson drug use no Milvia Bryson passive cigarette sm hardik exposure yes Milvia Adelaide smoking status Former smoker Milvia Mas jesi social history reviewed E&M revi ewed - no changes required Yaw Thacker MD physical exercise, f requency, days per week yes Nate Thomas alcohol use, average drinks per day none Nate Thomas alcohol use, type Beer, very seldom Areli tranarmando Thomas alcohol use no Nate nuñez caffeine use, averag e drinks per day 3 /d Nate Thomas drug use no Nate Macedoe savannah passive cigarette sm hardik exposure yes Nate Thomas smoking/tobacco cess ation, patient education and counseling yes Nate Thomas smoking status Former smoker Nate Mckeon social history reviewed E&M revi ewed - no changes required Yaw Thacker MD physical exercise, f requency, days per week yes Nate Thomas alcohol use, average drinks per day none Nate Thomas alcohol use, type Beer, very seldom Areli Thomas alcohol use no Nate nuñez caffeine use, averag e drinks per day 3 /d Nate Thomas drug use no Nate nuñez passive cigarette sm hardik exposure yes Nate Thomas smoking/tobacco cess ation, patient education and counseling yes Nate Thomas smoking status Former smoker Nate Mckeon smoking/tobacco cess ation, patient education and counseling yes Yaw Thacker MD social history reviewed E&M revi alejandro - no changes required Yaw Thacker MD alcohol use no Danielle Cranepraveen lder smoking status Former smoker Danielle Cranestephen sowelder social history E&M Marital Statu s: E thnicity: Arya mejia is a former smoker. Smoking History: Arya mejia is a former smoker. Arya mejia has been counseled to quit. Yaw Thacker MD smoking/tobacco cess ation, patient education and counseling yes Yaw Thacker MD physical exercise, f requency, days per week yes Yaw Thacker MD alcohol use, average drinks per day none Yaw Thacker MD alcohol use, type Beer, very seldom Yaw Thacker MD caffeine use, averag e drinks per day 3 /d Yaw Thacker MD drug use no Yaw Thacker MD passive cigarette sm hardik exposure yes Yaw Thacker MD smoking status Former smoker Yaw Thacker MD social history reviewed E&M reviewed Yaw Thacker MD social history reviewed E&M reviewed Edilberto Martinez RN smoking history, tot al pack/year 50 Edilberto Martinez RN social history reviewed E&M reviewed Edilberto Martinez RN social history reviewed E&M reviewed Yaw Thacker MD caffeine use, averag e drinks per day 3 /d Griffin Manacoarya alcohol use, type Beer, very seldom Rick h Manacop smoking history, tot al pack/year [id number] Griffin Vishalacoarya smoking, year quit 1998 Griffin horn social history reviewed E&M reviewed Yaw Thacker MD drug use no [facility] sm hardik exposure yes Griffin Vishalaco smoking history, tot al pack/year 1 pack per day for 54 years Griffin [place]aco smoking, year quit 2001 Griffin horn smoking status former smoker Griffin Ada social history reviewed E&M reviewed Edilberto Martinez RN social history reviewed E&M reviewed Edilberto Martinez RN social history reviewed E&M reviewed Edilberto Martinez RN social history reviewed E&M reviewed Edilberto Martinez RN social history reviewed E&M reviewed Edilberto Martinez RN social history reviewed E&M reviewed Yaw Thacker MD social history E&M Marital Statu s: E thnicity: Yaw Thacker MD social history reviewed E&M reviewed Yaw Thacker MD physical exercise, f requency, days per week yes [employer] caffeine use, averag e drinks per day yes [employer]Logic alcohol use, average drinks per day none [employer]Log[employer] number of years as a smoker 10 years or m ore LinkLog smoking status Quit LinkLog FUNCTIONAL STATUS Date Observation Value Provider HRA, CV Assess/Plan, Angina (inactive) Management Plan continue current therapy Khushi Orlando NP HRA, CV Assess/Plan, Angina (inactive) Management Plan continue current therapy Yaw Thacker MD HRA, CV Assess/Plan, Angina (inactive) Management Plan continue current therapy Yaw Thacker MD HRA, CV Assess/Plan, Angina (inactive) Management Plan continue current therapy Yaw Thacker MD HRA, CV Assess/Plan, Angina (inactive) Management Plan continue current therapy Yaw Thacker MD HRA, CV Assess/Plan, Angina (inactive) Management Plan continue current therapy Yaw Thacker MD HRA, CV Assess/Plan, Angina (inactive) Management Plan continue current therapy Yaw Thacker MD HRA, CV Assess/Plan, Angina (inactive) Management Plan continue current therapy Khushi Orlando NP HRA, CV Assess/Plan, Angina (inactive) Management Plan continue current therapy Yaw Thacker MD HRA, CV Assess/Plan, Angina (inactive) Management Plan continue current therapy Yaw Thacker MD HRA, CV Assess/Plan, Angina (inactive) Management Plan continue current therapy Yaw Thacker MD MENTAL STATUS Date Observation Value Provider energy level yes Stout Tebid energy level yes Stout Tebid energy level yes Stout Tebid energy level yes Stout Tebid energy level yes Stout Tebid energy level yes Stout Tebid energy level yes Stout Tebid energy level yes Stout Tebid energy level yes Stout Tebid energy level yes Stout Tebid energy level yes Stout Tebid energy level yes Stout Tebid energy level yes Stout Tebid energy level yes Stout Tebid energy level yes Stout Tebid energy level yes Stout Tebid energy level yes Stout Tebid energy level yes Stout Tebid energy level yes Stout Tebid energy level yes Stout Tebid energy level yes Radha Tebid energy level yes Radha Tebid energy level yes Radha Tebid energy level yes Radha Tebid energy level yes Radha Tebid assessment of judgme nt and insight E&M Alert and oriented to time, place and person. Mood and affect are normal. Yaw Thacker MD energy level yes Radha Tebid energy level yes Radha Tebid energy level yes Radha Tebid energy level yes Radha Tebid energy level yes Radha Tebid energy level yes Radha Tebid energy level yes Radha Tebid energy level yes Radha Tebid energy level no Radha Tebid energy level no Radha Tebid assessment of judgme nt and insight E&M Alert and oriented to time, place and person. Mood and affect are normal. Edilberto Martinez RN assessment of judgme nt and insight E&M Alert and oriented to time, place and person. Mood and affect are normal. Edilberto Martinez RN assessment of judgme nt and insight E&M Alert and oriented to time, place and person. Mood and affect are normal. Yaw Thacker MD assessment of judgme nt and insight E&M Alert and oriented to time, place and person. Mood and affect are normal. Yaw Thacker MD assessment of judgme nt and insight E&M Alert and oriented to time, place and person. Mood and affect are normal. Edilberto Martinez RN assessment of judgme nt and insight E&M Alert and oriented to time, place and person. Mood and affect are normal. Edilberto Martinez RN assessment of judgme nt and insight E&M Alert and oriented to time, place and person. Mood and affect are normal. Edilberto Martinez RN assessment of judgme nt and insight E&M Alert and oriented to time, place and person. Mood and affect are normal. Edilberto Martinez RN assessment of judgme nt and insight E&M Alert and oriented to time, place and person. Mood and affect are normal. Edilberto Martinez RN assessment of judgme nt and insight E&M Alert and oriented to time, place and person. Mood and affect are normal. Yaw Thacker MD assessment of judgme nt and insight E&M Alert and oriented to time, place and person. Mood and affect are normal. Yaw Thacker MD FAMILY HISTORY Family Member Condition First Degree Blood Relative No Known Fam halima History INSURANCE PROVIDERS Payer name Policy type / Coverage type [place] [employer] [facility] MEDICARE ADVANTAGE (PPO) Other [id number] ADVANCE DIRECTIVES Name Date DISCUSSED - NO DECISION MADE TREATMENT PLAN Date Name Performer [id number],S, R epeat CTA scan in August. To discuss with PCP. Khushi Orlando NP [id number],S, N o dizziness. Continues on plavix. Khushi Orlando NP [id number],S, U nchanged. Khushi Orlando NP [id number],S, H is updated medication list for this problem includes: Atorvastatin 20 Mg Tablet (Atorvastatin) ..... Take 1 tablet by mouth every night Khushi Orlando NP [id number],S, N o chest pain. Khushi Orlando NP [id number],S, Yaw Thacker MD [id number],W,H e does not wish to do a PFT or ct so will refer him to the lung doctor Dr KELLOGG pulmonary consult. Yaw Thacker MD [id number],S, Yaw Thacker MD Cardiology: R epeat CTA scan in August. To discuss with PCP. Khushi Orlando NP Cardiology: N o dizziness. Continues on plavix. Khushi Orlando NP Cardiology: U nchanged. Khushi Orlando NP Cardiology: H is updated medication list for this problem includes: Atorvastatin 20 Mg Tablet (Atorvastatin) ..... Take 1 tablet by mouth every night Khushi Orlando NP Cardiology: N o chest pain. Khushi Orlando NP Cardiology follow up Yaw jerry MD Cardiology follow up :He does not wish to do a PFT or ct so will refer him to the lung doctor Dr KELLOGG pulmonary consult. Yaw Thacker MD Cardiology follow up Yaw jerry MD Cardiology Hospital Follow up :C ontinue the atorvostatin Yaw Thacker MD [facility] Hospital Follow up :Multifactoral, seems better with stent Yaw Thacker MD [facility] Follow up :S/P stent to the proximal LAD, doing ok. On Plavix and Metroprolol. Stopped Metroprolol due to low HR Yaw Thacker MD [facility] Hospital Follow up Us vishal Thacker MD Cardiology Hospital Follow up : H is updated medication list for this problem includes: Atorvastatin Calcium 20 Mg Oral Tablet (Atorvastatin calcium) ..... Take 1 tablet by mouth at bedtime Yaw Thacker MD [facility] Follow up :The patient has had worsening shortness of breath for the past 3-4 months and has a 75% LAD lesion. I recommend that we use shockwave to break up the calcium and stent this vessel. Hopefully this will bring him some relief and improve his breathing. Yaw Thacker MD Cardiology follow up Yaw jerry MD Cardiology follow up :Repeat stress. Last regadenoson done in 2014 Yaw Thacker MD Cardiology follow up Yaw jerry MD Cardiology follow up :will obtain 6 minute walk test, echo and stress test Yaw Thacker MD Cardiology: H is updated medication list for this problem includes: Atorvastatin Calcium 20 Mg Oral Tablet (Atorvastatin calcium) ..... At hs Yaw Thacker MD Cardiology:Is experi encing some dizziness which is similar to what he was having prior to the L CEA, so we will repeat his carotid ultrasound. Yaw Thacker MD Cardiology:Recently in the hospital at [facility] with shortness of breath. Will obtain his records Yaw Thacker MD Cardiology:ARLENE done 05/26/19 showed only mild arterial disease of the LE b/l. Yaw Thacker MD Cardiology follow up:Will check ARLENE's. Yaw Thacker MD Cardiology follow up Yaw jerry MD Cardiology follow up :On Atorvastatin. Labs checked by PCP. Yaw Thacker MD Cardiology follow up :Continues to have atypical chest symptoms. EKG is unchanged and physical is also unchanged. I would continue to treat him with ASA, statin and Imdur. Yaw Thacker MD Cardiology Follow up Yaw jerry MD Cardiology Follow up Yaw jerry MD Cardiology Follow up Yaw jerry MD Cardiology Follow up Yaw jerry MD Cardiology:Carotid US showed min imal plaque. 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 Will do carotid duplex. Khushi Orlando NP Cardiology:Will repeat echo Yrn Orlando NP Cardiology:SOB continues. Khushi Orlando NP Cardiology:Will check echo at 6 month visit Yaw Thacker MD Cardiology:Stress te st is unchanged from 2015 so do not think this is progression of [place] CAD. Yaw Thacker MD Cardiology Follow up :On Atorvas tatin. Yaw Thacker MD Cardiology Follow up :Maybe anginal equivalent and would repeat the stress nuclear. Yaw Thacker MD Cardiology: H is updated medication list for this problem includes: Atorvastatin Calcium 20 Mg Tabs (Atorvastatin calcium) ..... At hs Yaw Thacker MD Cardiology Yaw Thacker MD Cardiology Yaw Thacker MD fu:PFT (01/10/2015) P ulmonary Function Diagnosis: M oderate Obstructive Airways Disease -Reversible N o significant restriction. M oderately severe Diffusion Defect Will refer patient to residential interior designer. Yaw Thacker MD fu:PFT (01/10/2015) P ulmonary Function Diagnosis: M oderate Obstructive Airways Disease -Reversible N o significant restriction. M oderately severe Diffusion Defect Yaw Thacker MD fu:Stress nuclear (0 01/22/2015) S ummary 1 . Abnormal myocardial imaging after vasodilator stress with Regadenoson. 2 . There is a moderate size fixed inferior wall defect consistent with infarct. 3 . Normal left ventricular systolic function with a calculated ejection fraction of 57%. Will schedule L/R cardiac cath at [facility] Yaw Thacker MD fu:Will do stress adenosine Johny Thacker MD fu:PFT (07/09/2013) M oderate Obstructive Airway Disease M ild Restriction--Parenchymal M oderately severe Diffusion Defect Will repeat PFT s tress adenosine C BC Yaw Thacker MD Follow up Yaw Thacker MD Follow up :He states inhalers used in the past did not help his SOB Yaw Thacker MD Follow up Yaw Thacker MD Yaw Thacker MD Yaw Thacker MD : H is updated medication list for this problem includes: Plavix 75 Mg Tabs (Clopidogrel bisulfate) ..... 1 tab by mouth daily Atorvastatin Calcium 20 Mg Tabs (Atorvastatin calcium) ..... At Imdur 30 Mg [id number] (Isosorbide mononitrate) ..... One tablet daily Propranolol Hcl 20 Mg Tabs (Propranolol hcl) ..... 1 tablet by mouth twice daily Aspirin 81 Mg Tabs (Aspirin) ..... 1 tablet by mouth daily BP today: / Prior BP: 130/78 (08/31/2012) N uclear Stress Findings: 1. Normal myocardial perfusion imaging after vasodilator stress with Regadenoson. 2 . Normal left ventricular systolic function with a calculated ejection fraction of 57%. 3 . No obvious significant scintigraphic evidence of myocardial ischemia or scar. The following medications were removed from the medication list: Propranolol Hcl 20 Mg Tabs (Propranolol hcl) ..... 1 tablet by mouth twice daily His updated medication list for this problem includes: Plavix 75 Mg Tabs (Clopidogrel bisulfate) ..... 1 tab by mouth daily Atorvastatin Calcium 20 Mg Tabs (Atorvastatin calcium) ..... At hs Imdur 30 Mg [id number] (Isosorbide mononitrate) ..... One tablet daily Aspirin 81 Mg Tabs (Aspirin) ..... 1 tablet by mouth daily Orders: Vanna LAM ([id number]) Yaw Thacker MD : T he following medications were removed from the medication list: Propranolol Hcl 20 Mg Tabs (Propranolol hcl) ..... 1 tablet by mouth twice daily His updated medication list for this problem includes: Plavix 75 Mg Tabs (Clopidogrel bisulfate) ..... 1 tab by mouth daily Atorvastatin Calcium 20 Mg Tabs (Atorvastatin calcium) ..... At hs Imdur 30 Mg [id number] (Isosorbide mononitrate) ..... One tablet daily Aspirin 81 Mg Tabs (Aspirin) ..... 1 tablet by mouth daily BP today: / Prior BP: 130/78 (08/31/2012) N uclear Stress Findings: 1. Normal myocardial perfusion imaging after vasodilator stress with Regadenoson. 2 . Normal left ventricular systolic function with a calculated ejection fraction of 57%. 3 . No obvious significant scintigraphic evidence of myocardial ischemia or scar. Yaw Thacker MD Follow-up Yaw Thacker MD Follow-up Yaw Thacker MD Follow-up: T he following medications were removed from the medication list: Lipitor 20 Mg Tabs (Atorvastatin calcium) ..... One tab. daily His updated medication list for this problem includes: Plavix 75 Mg Tabs (Clopidogrel bisulfate) ..... 1 tab by mouth daily Atorvastatin Calcium 20 Mg Tabs (Atorvastatin calcium) ..... At hs Imdur 30 Mg [id number] (Isosorbide mononitrate) ..... One tablet daily Propranolol Hcl 20 Mg Tabs (Propranolol hcl) ..... 1 tablet by mouth twice daily Aspirin 81 Mg Tabs (Aspirin) ..... 1 tablet by mouth daily Yaw Thacker MD Follow-up: T he following medications were removed from the medication list: Lipitor 20 Mg Tabs (Atorvastatin calcium) ..... One tab. daily His updated medication list for this problem includes: Plavix 75 Mg Tabs (Clopidogrel bisulfate) ..... 1 tab by mouth daily Atorvastatin Calcium 20 Mg Tabs (Atorvastatin calcium) ..... At hs Imdur 30 Mg [id number] (Isosorbide mononitrate) ..... One tablet daily Propranolol Hcl 20 Mg Tabs (Propranolol hcl) ..... 1 tablet by mouth twice daily Aspirin 81 Mg Tabs (Aspirin) ..... 1 tablet by mouth daily Orders: E - Medicare ([id number]) Yaw Thacker MD Follow-up: H is updated medication list for this problem includes: Atorvastatin Calcium 20 Mg Tabs (Atorvastatin calcium) ..... At Yaw Thacker MD Follow-up Yaw Thacker MD Follow-up: H is updated medication list for this problem includes: Plavix 75 Mg Tabs (Clopidogrel bisulfate) ..... 1 tab by mouth daily Orders: E KG ([id number]) h as st depression in the inferior leads and this is different than previous ekg s o would rx a card cath. Yaw Thacker MD Follow-up: H is updated medication list for this problem includes: Plavix 75 Mg Tabs (Clopidogrel bisulfate) ..... 1 tab by mouth daily Atorvastatin Calcium 20 Mg Tabs (Atorvastatin calcium) ..... At hs Yaw Thacker MD follow up: H is updated medication list for this problem includes: Plavix 75 Mg Tabs (Clopidogrel bisulfate) ..... 1 tab by mouth daily Atorvastatin Calcium 20 Mg Tabs (Atorvastatin calcium) ..... At hs BP today: 112/51 Prior BP: 103/66 (11/18/2011) N uclear Stress Findings: 1. Normal myocardial perfusion imaging after vasodilator stress with Regadenoson. 2 . Normal left ventricular systolic function with a calculated ejection fraction of 57%. 3 . No obvious significant scintigraphic evidence of myocardial ischemia or scar. (03/11/2011) C ardiac Cath: Elevated LV EDP. Normal LV function. Significant diagonal I lesion with stent with drug-eluting stent. Will see how he does with this. The only other targets if he continues to have chest pain would be proximal LAD which was borderline positive, but since the wire was not working properly I was not sure at that point whether this was truly significant or not. The right coronary artery ostium which had no gradient but appeared to be somewhat stenosed. The patient will continue aggressive medical therapy. - (10/05/2011) C ardiac Cath Comments: Successful 2.5 x 15mm Xience drug-eluting stenting of the 1st diagonal - (10/05/2011) C arotid Doppler/Duplex: Mild plaque with less than 50% stenosis of the internal carotid arteries bilaterally. Vertebral flow is antegrade bilaterally. - [facility] (09/20/2011) C HOL: 165 (10/05/2011) LDL: 83 (10/05/2011) HDL: 39 (09/23/2010) T (09/23/2010) H gb: 14.1 (10/01/2011) HCT: 42.8 (10/01/2011) RBC: 4.50 (10/01/2011) WBC: 7.2 (10/01/2011) B UN: 20 (09/20/2011) Creat: 1.24 (09/20/2011) Glucose: 99 (11/05/2010) N a+: 140 (09/20/2011) K+: 4.5 (09/20/2011) Cl: 104 (09/20/2011) PT: 10.6 (09/20/2011) INR: 1.0 (09/20/2011) T SH: 1.720 (09/23/2010) Yaw Thacker MD follow up: H is updated medication list for this problem includes: Plavix 75 Mg Tabs (Clopidogrel bisulfate) ..... 1 tab by mouth daily Atorvastatin Calcium 20 Mg Tabs (Atorvastatin calcium) ..... At hs BP today: 112/51 Prior BP: 103/66 (11/18/2011) N uclear Stress Findings: 1. Normal myocardial perfusion imaging after vasodilator stress with Regadenoson. 2 . Normal left ventricular systolic function with a calculated ejection fraction of 57%. 3 . No obvious significant scintigraphic evidence of myocardial ischemia or scar. (03/11/2011) C ardiac Cath: Elevated LV EDP. Normal LV function. Significant diagonal I lesion with stent with drug-eluting stent. Will see how he does with this. The only other targets if he continues to have chest pain would be proximal LAD which was borderline positive, but since the wire was not working properly I was not sure at that point whether this was truly significant or not. The right coronary artery ostium which had no gradient but appeared to be somewhat stenosed. The patient will continue aggressive medical therapy. - (10/05/2011) C ardiac Cath Comments: Successful 2.5 x 15mm Xience drug-eluting stenting of the 1st diagonal - (10/05/2011) C arotid Doppler/Duplex: Mild plaque with less than 50% stenosis of the internal carotid arteries bilaterally. Vertebral flow is antegrade bilaterally. - [facility] (09/20/2011) C HOL: 165 (10/05/2011) LDL: 83 (10/05/2011) HDL: 39 (09/23/2010) T (09/23/2010) H gb: 14.1 (10/01/2011) HCT: 42.8 (10/01/2011) RBC: 4.50 (10/01/2011) WBC: 7.2 (10/01/2011) B UN: 20 (09/20/2011) Creat: 1.24 (09/20/2011) Glucose: 99 (11/05/2010) N a+: 140 (09/20/2011) K+: 4.5 (09/20/2011) Cl: 104 (09/20/2011) PT: 10.6 (09/20/2011) INR: 1.0 (09/20/2011) T SH: 1.720 (09/23/2010) Yaw Thacker MD hosp f/u Yaw Thacker MD hosp f/u Yaw Thacker MD hosp f/u Yaw Thacker MD hosp f/u : T he following medications were removed from the medication list: Simvastatin 10 Mg Tabs (Simvastatin) ..... 1 tab by mouth daily His updated medication list for this problem includes: Plavix 75 Mg Tabs (Clopidogrel bisulfate) ..... 1 tab by mouth daily Atorvastatin Calcium 20 Mg Tabs (Atorvastatin calcium) ..... At Yaw Thacker MD hosp f/u :Has had a real issue with bleeding but seems to be controlled at this T he following medications were removed from the medication list: Simvastatin 10 Mg Tabs (Simvastatin) ..... 1 tab by mouth daily His updated medication list for this problem includes: Plavix 75 Mg Tabs (Clopidogrel bisulfate) ..... 1 tab by mouth daily Atorvastatin Calcium 20 Mg Tabs (Atorvastatin calcium) ..... At Orders: C omplete Echo ([id number]) Yaw Thacker MD Follow-up, c/o chest pain and sh ortness of breath Yaw Thacker MD Follow-up, c/o chest pain and shortness of breath: H is updated medication list for this problem includes: Plavix 75 Mg Tabs (Clopidogrel bisulfate) ..... 1 tab by mouth daily Orders: E KG ([id number]) Yaw Thacker MD Follow-up, c/o chest pain and sh ortness of breath Yaw Thacker MD Follow-up, c/o chest pain and sh ortness of breath Yaw Thacker MD Follow-up, c/o chest pain and sh ortness of breath Yaw Thacker MD Follow-up, c/o chest pain and shortness of breath: H is updated medication list for this problem includes: Simvastatin 10 Mg Tabs (Simvastatin) ..... 1 tab by mouth daily Plavix 75 Mg Tabs (Clopidogrel bisulfate) ..... 1 tab by mouth daily H e has discomfort in his chest which is very atypical but has multi vessel cad and he will need ffr of his vessels to determine significance and thus i will do this at [facility] which has that facility Yaw Thacker MD routine: H is updated medication list for this problem includes: Plavix 75 Mg Tabs (Clopidogrel bisulfate) ..... 1 tab by mouth daily BP today: 107/57 Prior BP: 106/65 (11/26/2010) Nuclear Stress Findings: Had 1.4-1.5mm horizontal ST segment depression in the inferior leads and 1.4 upsloping in the lateral leads. The inferior lead changes are diagnostic for ischemia. Normal submaximal SPECT strses sestamibi myocardial imaging exam. LV EF 78% which is within normal limits. [facility] (10/14/2010) C ardiac Cath: Normal left ventricular function. Normal left ventricular end diastolic pressure. 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 EF 60%. [facility] (11/05/2010) C ardiac Cath Comments: Successful stenting of the proximal RCA with a 3.5 x 15 Vision stent. [facility] (11/05/2010) C HOL: 203 (09/23/2010) LDL: 131 (09/23/2010) HDL: 39 (09/23/2010) T (09/23/2010) H gb: 14.2 (11/05/2010) HCT: 42.5 (11/05/2010) RBC: 4.39 (11/05/2010) WBC: 7.1 (11/05/2010) B UN: 26.5 (11/05/2010) Creat: 1.28 (11/05/2010) Glucose: 99 (11/05/2010) N a+: 137 (11/05/2010) K+: 4.3 (11/05/2010) Cl: 104 (11/05/2010) PT: 13.8 (10/23/2010) INR: 1.4 (10/23/2010) T SH: 1.720 (09/23/2010) Echocardiogram: LAE. Normal MV. Calcified AV without stenosis. LVH with wall lthickness of 1.2cm. Normal LV function. Mild LV diastolic dysfunction. No pericardial effusion identified. Mild AR. Mild MR. Mild TR. EF 64%. RVSP 23mmg. [facility] (10/14/2010) Yaw Thacker MD routine Yaw Thacker MD routine: H is updated medication list for this problem includes: Simvastatin 10 Mg Tabs (Simvastatin) ..... 1 tab by mouth daily BP today: 107/57 Prior BP: 106/65 (11/26/2010) C HOL: 203 (09/23/2010) LDL: 131 (09/23/2010) HDL: 39 (09/23/2010) T (09/23/2010) Yaw Thacker MD routine: H is updated medication list for this problem includes: Simvastatin 10 Mg Tabs (Simvastatin) ..... 1 tab by mouth daily Plavix 75 Mg Tabs (Clopidogrel bisulfate) ..... 1 tab by mouth daily BP today: 107/57 Prior BP: 106/65 (11/26/2010) N uclear Stress Findings: Had 1.4-1.5mm horizontal ST segment depression in the inferior leads and 1.4 upsloping in the lateral leads. The inferior lead changes are diagnostic for ischemia. Normal submaximal SPECT strses sestamibi myocardial imaging exam. LV EF 78% which is within normal limits. [facility] (10/14/2010) C ardiac Cath: Normal left ventricular function. Normal left ventricular end diastolic pressure. 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 EF 60%. [facility] (11/05/2010) C ardiac Cath Comments: Successful stenting of the proximal RCA with a 3.5 x 15 Vision stent. [facility] (11/05/2010) h e will need another stress test but will do an adenosine myoview Yaw Thacker MD follow up:check the free testosterone and vit d levels. O rders: V ITAMIN D, 25-HYDROXY, LC/MS/MS (95925) O ther ([id number]) Yaw Thacker MD follow up: H is updated medication list for this problem includes: Simvastatin 10 Mg Tabs (Simvastatin) ..... 1 tab by mouth daily Plavix 75 Mg Tabs (Clopidogrel bisulfate) ..... 1 tab by mouth daily w e will continue the asa for life and he can stop the plavix in a month or so. Yaw Thacker MD follow up Yaw Thacker MD follow up Yaw Thacker MD follow up: H is updated medication list for this problem includes: Simvastatin 10 Mg Tabs (Simvastatin) ..... One tab. at bedtime Yaw Thacker MD follow up Yaw Thacker MD follow up Yaw Thacker MD follow up:He has a n eg stress test but continues to have symptoms and although atypical i have rx a card cath T he risks and benefits of the procedure, including but not limited the risk of heart attack, , stroke, bleeding, kidney failure, and loss of limb as well as the alternative of continued medical therapy, stress testing or bypass surgery were discussed with the patient and any present family members and the patient wishes to proceed with cardiac cath and stenting. The patient and family had opportunity to discuss this with us. Written material including informed consent was given out. Yaw Thacker MD Date Name Cardiac Cath - L/R - CNE PROTHROMBIN TIME WIT H INR LIPID PANEL CBC (INCLUDES DIFF/P LT) BASIC METABOLIC PANE L W/EGFR Stress Regadenoson 6 minute walk test Complete Echo Carotid Duplex Bilat eral Arterial Duplex Bi-L ower EX Complete Echo Complete Echo Carotid Duplex Bilat eral Complete Echo STR - Adenosine PROTHROMBIN TIME WIT H INR CBC (INCLUDES DIFF/P LT) BASIC METABOLIC PANE L W/EGFR Cardiac Cath - L/R - GC CBC (H/H, RBC, INDIC ES, WBC, PLT) DLCO - 15278 FRC - 39163 FVC - 40204 STR - Adenosine Complete Echo Full PFT Complete Echo ECP - Medicare Complete Echo ECP - Medicare TESTOSTERONE, TOTAL Complete Echo THYROID PANEL WITH T SH, 3RD GENERATION LIPID PANEL COMPREHENSIVE METABO LIC PANEL W/EGFR Complete Echo Cardiac Cath - Left - CNE Stress Test - Adenos ine Other VITAMIN D, 25-HYDROX Y, LC/MS/MS Cardiac Cath - Left - GC HISTORY OF PROCEDURES Procedure Date Procedure Name Provider Procedure Notes S tatus EKG Yaw Thacker MD completed EKG Yaw Thacker MD completed SNOMED-CT: 73674685 Physical Exam, Performed: Pulse Exam of Foot Yaw Thacker MD completed EKG Yaw Thacker MD completed SNOMED-CT: 996192617 998722 Current Medications Documented Yaw Thacker MD completed SNOMED-CT: 86087462 Physical Exam, Performed: Pulse Exam of Foot Yaw Thacker MD completed SNOMED-CT: 010190425 671944 Current Medications Documented Yaw Thacker MD completed SNOMED-CT: 77759082 Physical Exam, Performed: Pulse Exam of Foot Yaw Thacker MD completed SNOMED-CT: 817491553 514048 Current Medications Documented Yaw Thacker MD completed SNOMED-CT: 53643024 Physical Exam, Performed: Pulse Exam of Foot Yaw Thacker MD completed SNOMED-CT: 218505863 080363 Current Medications Documented Yaw Thacker MD completed Stress EKG Jeremiah Serrano MD completed Regadenoson, 4 units Michael stoner MD completed Cardiolite, 2 units Michael izquierdo MD completed SPECT Images Michael Knowles MD completed SNOMED-CT: 02584220 Physical Exam, Performed: Pulse Exam of Foot Yaw Thacker MD completed EKG Yaw Thacker MD completed SNOMED-CT: 357661845 680209 Current Medications Documented Yaw Thacker MD completed SNOMED-CT: 64186821 Physical Exam, Performed: Pulse Exam of Foot Yaw Thacker MD completed SNOMED-CT: 379953312 527334 Current Medications Documented Yaw Thacker MD completed SNOMED-CT: 95069023 Physical Exam, Performed: Pulse Exam of Foot Yaw Thacker MD completed SNOMED-CT: 475121391 024667 Current Medications Documented Yaw Thacker MD completed BLOOD COUNT HEMOGLOBIN Yaw Thacker MD completed FVC - 33073 Yaw Thacker MD complete d FRC - 71150 Yaw Thacker MD complete d DLCO - 08391 Yaw Thacker MD complet ed EKG Yaw Thacker MD completed DLCO - 16593 Chinmay Bell completed SVC - 39853 Chinmay Bell completed FVC - 01407 Chinmay Bell completed EKG Yaw Thacker MD completed EKG Yaw Thacker MD completed EKG Yaw Thacker MD completed EKG Yaw Thacker MD completed EKG Yaw Thacker MD completed
--- OUTSIDE RECORDS SUMMARY | 2024-06-01 02:22 | XMS_ITS | Encounter Summary ---
Author Organization [facility] Healthcare Address [address] [place] [address] Care Team Providers Care Cloth Checker Name Role Phone Angelo Mccloud MD Primary Care Provider [phone] Reason for Visit * Consultation (Routine) - Closed Specialty Diagnoses / Procedures Referred By Contac t Referred To Contact Cardiology Diagnoses Atherosclerosis of [place] coronary artery without angina pectoris, unspecified whether [place] or transplanted heart Irwin Padilla MD [address] [place] [address] Phone: tel: fax: [facility] Medical [facility] Cardiology [address] [place] [address] Phone: tel: fax: Referral ID Status Reason Start Date Expiration Date V isits Requested Visits Authorized [id number] Closed Specialty Services Required 03/01/2023 03/30/2024 1 1 Encounter Details Date Type Department Care Team (Late st Contact Info) Description 06/14/2023 2:45 PM FOUNDRY WORKER Office Visit [facility] Medical Group Cardiology [address] [address] Jefferson Moeller MD [address] [place] [address] Coronary artery disease involving [place] coronary artery of [place] heart without angina pectoris (Primary Dx); Atherosclerosis of [place] coronary artery without angina pectoris, unspecified whether [place] or transplanted heart; Lipid screening Social History Tobacco Use Types Packs/Day Years Used Date Smoking Tobacco: Former Smokeless Tobacco: Never Tobacco Cessation:Counseling Given: Not Answered Comments:20 years ago AUDIT-C Answer Date Recorded [...] on file Legal Sex Male 5:45 AM FOUNDRY WORKER Gender Identity Not on file Sexual Orientation Not on file documented as of this encounter Last Filed Vital Signs Vital Sign Reading Time Taken Comments Blood Pressure 106/62 06/14/2023 2:20 PM FOUNDRY WORKER Pulse 88 06/14/2023 2:20 PM FOUNDRY WORKER Temperature - - Respiratory Rate - - Oxygen Saturation 97% 06/14/2023 2:20 PM FOUNDRY WORKER Inhaled Oxygen Concentration - - Weight 80.7 kg (178 lb) 06/14/2023 2:20 PM FOUNDRY WORKER Height 180.3 cm (5' 11 ) 06/14/2023 2:20 PM FOUNDRY WORKER Body Mass Index 24.83 06/14/2023 2:20 PM FOUNDRY WORKER documented in this encounter Progress Notes * Jefferson Moeller MD - 06/14/2023 2:[address] [facility] CARDIOLOGY 06/14/2023 CHIEF COMPLAINT Coronary artery disease. JERZY Vivar is a 87 y.o. male with coronary artery disease being referred today by his PCP for ongoing care and follow-up. The patient has not been seen by me before and I do not have any records pertaining to his previous cardiovascular care. He has a reasonably good historian however and states that he has a history of coronary artery disease dating to about 10 years ago when he was admitted to the hospital in [place] with shortness of breath and some chest pain he states he was found to have both COPD and coronary artery disease and was treated with stenting of 1 of his coronary arteries. He states that he had another stent procedure done he thinks in the same vessel about 2 years later and after that he has been basically stable. He states that he still does experience episodes of nonexertional chest pain that occur in a random unpredictable fashion. Other than this he has nothad any additional cardiac problems. He does have a chronic right bundle branch block on his ECG which he was aware of. He reports no history of valvular abnormalities. He does report a history of carotid artery disease and underwent a right carotid endarterectomy many years ago here at [facility]. He does not have any history of lower extremity vascular disease that he is aware of. He wasa smoker but quit smoking several decades ago. Does have history of hypertension no history of diabetes or significant dyslipidemia. Patient is in a wheelchair for this appointment he states his wifebrought him in with a wheelchair because for long distances he is limited by his lung disease but otherwise he ambulates about his home without any significant problems. 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 MEDICAL HISTORY Past Medical History: Diagnosis Date Arthritis Basal cell carcinoma BPH (benign prostatic hyperplasia) CAD (coronary artery disease) Depression GERD (gastroesophageal reflux disease) GI bleed Headache History of blood transfusion HL (hearing loss) right ear HLD (hyperlipidemia) Kidney stones Lung disease COPD Sleep apnea Past Surgical History: Procedure Laterality Date CARDIAC STENT PLACEMENT 3 stents CAROTID ARTERY ANGIOPLASTY Right CATARACT EXTRACTION, BILATERAL Bilateral CHOLECYSTECTOMY PENILE PROSTHESIS IMPLANT X 2 Family History Adopted: Yes Social History Tobacco Use Smoking status: Former Smokeless tobacco: Never Tobacco comments: 20 years ago Substance and Sexual Activity Drug use: Never Sexual activity: Defer Alcohol Use: Not At Risk (01/01/2021) AUDIT-C Frequency of Alcohol Consumption: Monthly or less Average Number of Drinks: 1 or 2 Frequency of Binge Drinking: Never Current Outpatient Medications Medication albuterol HFA (PROVENTIL HFA,VENTOLIN HFA,PROAIR HFA) 90 mcg/actuation inhaler ascorbic acid, vitamin C, 500 mg capsule ASPIRIN ORAL atorvastatin (LIPITOR) 20 mg tablet brimonidine-timoloL (COMBIGAN) 0.2-0.5 % ophthalmic solution budesonide-formoteroL (SYMBICORT) 160-4.5 mcg/actuation inhaler buPROPion SR (WELLBUTRIN SR) 150 mg 12 hr tablet cholecalciferol, vitamin D3, (VITAMIN D3 ORAL) clotrimazole-betamethasone (LOTRISONE) cream doxazosin (CARDURA) 4 mg tablet fluticasone propionate (FLONASE) 50 mcg/actuation nasal spray gabapentin (NEURONTIN) 300 mg capsule HYDROcodone-acetaminophen (NORCO) 5-325 mg per tablet isosorbide mononitrate ER (IMDUR) 30 mg 24 hr tablet latanoprost (XALATAN) 0.005 % ophthalmic solution multivitamin capsule omeprazole (PriLOSEC) 20 mg capsule phenazopyridine (PYRIDIUM) 100 mg tablet tamsulosin (FLOMAX) 0.4 mg extended release capsule vitamin E (vitamin E) 400 unit capsule clopidogreL (PLAVIX) 75 mg tablet No current facility-administered medications for this visit. No Known Allergies REVIEW OF SYSTEMS General ROS: negative for [...] for dry skin, eczema, pruritus and rash LABS AND OTHER DIAGNOSTIC TESTS Lab Results Component Value Date WBC 7.2 09/29/2020 HGB 14.1 09/29/2020 HCT 43.5 09/29/2020 MCV 102.1 (H) 09/29/2020 No lab exists for component: LABALBU No results found for: CHOL No results found for: HDL No results found for: LDLCALC No results found for: TRIG No results found for: CHOLHDL PHYSICAL EXAM Vitals BP 106/62 (BP Location: Left arm, Patient Position: Sitting) Pulse 88 Ht 180.3 cm (5' 11 ) Wt 80.7 kg (178 lb) SpO2 97% BMI 24.83 kg/m?? General appearance - alert, well appearing, pleasant tall elderly man seated in the wheelchair oriented to person, place, and time and [...] rashes, no suspicious skin lesions noted ASSESSMENT Coronary artery disease with previous stenting details not available to me Ongoing history of nonexertional chest pain appears to be a chronic problem and has not been felt to be ischemic by his previous project management intern from what he describes. Recent admission to [facility] with GI bleeding the source of which was not identified PLAN/RECOMMENDATIONS He is stable on appropriate medical therapy with aspirin and statin therapy for his chronic coronary artery disease. I will continue to see him at 6 month intervals or p.r.n.. His current intermittent chest pain doesnot sound ischemic to me he states his previous project management intern performed a stress test within the last year which was favorable by his recollection. Jefferson Moeller MD DRY WORKER documented in this encounter Miscellaneous Notes * Addendum Note - Litzy Sanchez CMA - 06/14/2023 2:45 PM CSTAddended by: LITZY SANCHEZ on: 06/14/2023 03:15 PM Modules accepted: Orders DRY WORKER documented in this encounter Plan of Treatment Not on file documented as of this encounter Procedures Procedure Name Priority Date/Time Associated Diagnosis Comments POCT LIPID PANEL Routine 06/14/2023 3:11 PM FOUNDRY WORKER Lipid screening ECG 12-LEAD Routine 06/14/2023 Atherosclerosis of [place] coronary artery without angina pectoris, unspecified whether [place] or transplanted heart documented in this encounter Results * POCT lipid panel (06/14/2023 3:11 PM FOUNDRY WORKER) Cholesterol, POC 137 mg/dL HDL, POC 37 mg/dL Triglycerides, POC 173 mg/dL LDL Cholesterol POC 66 mg/dL Chol/HDL Ratio, POC 1.8 Non-HDL Cholesterol, POC 100 mg/dL Cholesterol Total, POC 137 mg/dL Capillary blood 06/14/2023 3 :11 PM FOUNDRY WORKER Jefferson Moeller MD POINT OF CARE TEST ORDER BRANDON Final Result * ECG 12 lead (06/14/2023) us Jefferson Moeller MD ECG ORDERABLES Final Re sult documented in this encounter Visit Diagnoses Diagnosis Coronary artery disease involving [place] coronary artery of [place] heart without angina pectoris- Primary Atherosclerosis of [place] coronary artery without angina pectoris, unspecified whether [place] or transplanted heart Lipid screening Screening for lipoid disorders documented in this encounter Orders Outpatient Referral Count Last Ordered Date Fir st Ordered Date AMB REFERRAL TO CARDIOLOGY 1 06/14/2023 documented in this encounter Care Teams Cloth Checker Relationship Specialty Start Date End Date Angelo Mccloud MD [address] [place] [address] PCP - General 10/01/20 documented as of this encounter
--- OUTSIDE RECORDS SUMMARY | 2024-06-01 02:22 | XMS_ITS | Referral Summary ---
Author Organization [facility] Address [address] [place] [id number] Care Team Providers Care Claims Adjuster Name Role Phone Angelo Mccloud MD Primary Care Provider [phone] Allergies No known active allergies Medications budesonide-formo teroL (SYMBICORT) 160-4.5 mcg/actuation inhaler Inhale 2 puffs 2 (two) times a day Rinse mouth with water after use. Do not swallow. Active isosorbide mononitrate ER (IMDUR) 30 mg 24 hr tablet Take 1 tablet (30 mg total) by mouth daily Active omeprazole (PriLOSEC) 20 mg capsule Take 1 capsule (20 mg total) by mouth daily Active brimonidine-pina loL (COMBIGAN) 0.2-0.5 % ophthalmic solution Administer 1 drop into the right eye 2 (two) times a day Active latanoprost (XALATAN) 0.005 % ophthalmic solution Administer 1 drop into the right eye nightly Active gabapentin (NEURONTIN) 300 mg capsule Take 1 capsule (300 mg total) by mouth nightly Active doxazosin (CARDURA) 4 mg tablet Take 1 tablet (4 mg total) by mouth nightly Active atorvastatin (LIPITOR) 20 mg tablet Take 1 tablet (20 mg total) by mouth nightly Active buPROPion SR (WELLBUTRIN SR) 150 mg 12 hr tablet Take 1 tablet (150 mg total) by mouth 2 (two) times a day Active albuterol HFA (PROVENTIL HFA,VENTOLIN HFA,PROAIR HFA) 90 mcg/actuation inhaler Inhale 2 puffs every 6 (six) hours as needed for wheezing Active ASPIRIN ORAL Take 81 mg by mouth daily 3 Active multivitamin capsule Take 1 capsule by mouth daily 3 Active cholecalciferol, vitamin D3, (VITAMIN D3 ORAL) Take 1 capsule by mouth daily Active ascorbic acid, vitamin C, 500 mg capsule Take 500 mg by mouth daily 8 Active fluticasone propionate (FLONASE) 50 mcg/actuation nasal spray Administer 2 sprays into each nostril as needed Active vitamin E (vitamin E) 400 unit capsule Take 1 capsule (400 Units total) by mouth 2 (two) times a day 3 Active clopidogreL (PLAVIX) 75 mg tabletIndication s:myocardial infarction prevention,cardi ovascular disease Take 1 tablet (75 mg total) by mouth daily 30 tablet 11 1 Active clotrimazole-bet amethasone (LOTRISONE) cream Apply 1 application topically as needed 4 Active tamsulosin (FLOMAX) 0.4 mg extended release capsule Take 1 capsule (0.4 mg total) by mouth nightly 15 capsule 1 Active HYDROcodone-acet aminophen (NORCO) 5-325 mg per tabletIndication s:Pain Take 1 tablet by mouth every 6 (six) hours as needed (For severe pain not controlled by Tylenol alone or Ibuprofen) 10 tablet 1 Active phenazopyridine (PYRIDIUM) 100 mg tablet Take 1 tablet (100 mg total) by mouth 3 (three) times a day as needed for urinary pain 9 tablet 1 Active Active Problems Problem Noted Date Diagnosed Date Stone in renal pelvis 12/16/2020 Overview (12/16/2020): Added automatically from request for surgery [id number] CAD (coronary artery disease) 09/22/2020 Overview (09/22/2020): Added automatically from request for surgery [id number] SOB (shortness of breath) 09/22/2020 Overview (09/22/2020): Added automatically from request for surgery [id number] Social History Tobacco Use Types Packs/Day Years [...] on file Legal Sex Male 5:45 AM BALER Gender Identity Not on file Sexual Orientation Not on file Last Filed Vital Signs Vital Sign Reading Time Taken Comments Blood Pressure 118/60 12/13/2023 2:30 PM CDT Pulse 70 12/13/2023 2:30 PM CDT Temperature 38.6 ??C (101.5 ??F) 01/17/2021 8:49 PM C DT Respiratory Rate 18 01/17/2021 8:49 PM CDT Oxygen Saturation 95% 12/13/2023 2:30 PM CDT Inhaled Oxygen Concentration - - Weight 81.6 kg (180 lb) 12/13/2023 2:30 PM CDT Height 180.3 cm (5' 11 ) 12/13/2023 2:30 PM CDT Body Mass Index 25.1 12/13/2023 2:30 PM CDT Plan of Treatment Not on file Medical Devices Implanted Type Area Telephone Maintenance Mechanic Device Identifier Shelf Expiration Date Model / Serial / Lot [employer] X [id number] Resolute Cale 3.5mm 2.1-2.7fr 26mm 140cm Rapid Exchange - [id number] Implanted:Qty: 1 on 09/29/2020 by Yaw Thacker MD at [facility] [employer] [id number] / / Explanted Type Area Telephone Maintenance Mechanic Device Identifier Shelf Expiration Date Model / Serial / Lot [employer] [id number] Inlay [place] 7fr 28cm Pusher Fluoro Marker Atraumatic Insertion Latex Free - [id number] Implanted:Qty: 1 on 01/01/2021 by Martin Alvarado MD at [facility] Explanted:Qty: 1 on 01/16/2021 Left: [employer] 06/26/2025 [id number] / / [id number] Insurance MEDICARE [facility] Address: [place] [id number] [place] [id number] [facility] MEDICARE Address: [place] [id number] [place] [id number] [facility] MEDIC[facility] Address: [address] [address] [place] [address] Advance Directives For more information, please contact: [phone] * Full Code (Latest Code Status on File) Date Activated Date Inactivated Comments 09/29/2020 10:32 AM 10/01/2020 6:10 PM Care Teams Claims Adjuster Relationship Specialty Start Date End Date Angelo Mccloud MD [address] [place] [address] PCP - General 10/01/20
--- OUTSIDE RECORDS SUMMARY | 2024-06-01 02:22 | XMS_ITS | Encounter Summary ---
Author Organization [facility] Address Formerly [facility]. [place], [place] [address] [place] [address] Care Team Providers Care Plumbing Assembler Installer Name Role Phone Unavailable Primary Care Provider Unavailabl e Encounter Details Date Type Department Care Team (Late st Contact Info) Description 02/03/1999 Abstract [place] [address] , Generic Conversion, Social History Tobacco Use Types Packs/Day Years Used Date Smoking Tobacco: Never Assessed Sex and Gender Information Value Date Recorded Sex Assigned at Not on file Legal Sex Male 8:05 PM CDT Gender Identity Not on file Sexual Orientation Not on file documented as of this encounter Plan of Treatment Not on file documented as of this encounter Visit Diagnoses Not on filedocumented in this encounter
--- OUTSIDE RECORDS SUMMARY | 2024-06-01 02:22 | XMS_ITS | Clinical Summary ---
Author Organization [facility] Address [address] [place] [id number] Care Team Providers Care Bobbin Washer Name Role Phone Angelo Mccloud MD Primary Care Provider [phone] Allergies No known active allergies Medications budesonide-formo [...] (12/16/2020): Added automatically from request for surgery [id number] CAD (coronary artery disease) 09/22/2020 Overview (09/22/2020): Added automatically from request for surgery [id number] SOB (shortness of breath) 09/22/2020 Overview (09/22/2020): Added automatically from request for surgery [id number] Surgical History Surgery Date Site/Laterality Comments CARDIAC STENT PLACEMENT 3 stents CHOLECYSTECTOMY CAROTID ARTERY ANGIOPLASTY Right PENILE PROSTHESIS IMPLANT X 2 CATARACT EXTRACTION, BILATERAL Bilateral Medical History Medical History Date Comments Sleep apnea CAD (coronary artery disease) Lung disease COPD GERD (gastroesophageal reflux disease) BPH (benign prostatic hyperplasia) Depression History of blood transfusion HL (hearing loss) right ear Arthritis GI bleed HLD (hyperlipidemia) Kidney stones Headache Basal cell carcinoma Family History * Patient is adopted Relation Name Status Comments Father Mother Social History Tobacco Use Types Packs/Day Years [...] on file Legal Sex Male 5:45 AM ENGINEER SYSTEMS Gender Identity Not on file Sexual Orientation Not on file Obstetrics History Last Filed Vital Signs Vital Sign Reading [...] 12/13/2023 2:30 PM CDT Plan of Treatment Health Maintenance Due Date Last Done Comments Depression Screening 1935 DTaP/Tdap/Td Vaccine (1 - Tdap) 10/31/1946 Hepatitis B Screening 10/31/1953 Zoster Vaccine (1 of 2) 10/31/1985 Well Visit 65+ 10/31/2000 Pneumococcal vaccine 65+ (2 of 2 - PPSV23 or PCV20) 02/20/2016 12/26/2015 Fall Risk Assessment 01/01/2022 01/01/2021 Influenza Vaccine (#1) 2024 03/25/2014, 2012 Medical Devices Implanted Type Area Sales/Marketing Device Identifier Shelf Expiration Date Model / Serial / Lot [employer] X [id number] Resolute Delta 3.5mm 2.1-2.7fr 26mm 140cm Rapid Exchange - [id number] Implanted:Qty: 1 on 09/29/2020 by Yaw Thacker MD at [facility] [employer] [id number] / / Explanted Type Area Sales/Marketing Device Identifier Shelf Expiration Date Model / Serial / Lot [employer] [id number] Inlay Shorewood 7fr 28cm Pusher Fluoro Marker Atraumatic Insertion Latex Free - [id number] Implanted:Qty: 1 on 01/01/2021 by Martin Alvarado MD at [facility] Explanted:Qty: 1 on 01/16/2021 Left: Ureter [employer] 06/26/2025 [id number] / / [id number] Insurance MED[employer] [facility] Address: [address] [address] [facility] Address: [address] [address] [place] [address] [employer] [facility]IC[facility] Address: [address] [address] [place] [address] Advance Directives For more information, please contact: [phone] * Full Code (Latest Code Status on File) Date Activated Date Inactivated Comments 09/29/2020 10:32 AM 10/01/2020 6:10 PM Care Teams Bobbin Washer Relationship Specialty Start Date End Date Angelo Mccloud MD [address] [facility] [address] [place] [address] PCP - General 10/01/20
--- OUTSIDE RECORDS SUMMARY | 2024-06-01 02:22 | XMS_ITS | Encounter Summary ---
Author Organization [facility] Address [facility] [place], [place] [id number] [place] [id number] Care Team Providers Care Senior Physician Name Role Phone Unavailable Primary Care Provider Unavailabl e Encounter Details Date Type Department Care Team (Late st Contact Info) Description 04/08/[address] [facility] [address] [place] [address] , Leighton Carlos MD Social History Tobacco Use Types Packs/Day Years [...]
--- OUTSIDE RECORDS SUMMARY | 2024-06-01 02:23 | XMS_ITS | Encounter Summary ---
Author Organization [facility] Address [address] [place] [address] Phone Care Team Providers Care Conflict Resolution Professional Name Role Phone Angelo Mccloud MD Primary Care Provider [phone] Reason for Referral * MRI/CAT/PET Scan (Routine) - Closed Specialty Diagnoses / Procedures Referred By Contac t Referred To Contact Radiology Diagnoses Gross hematuria Procedures CT Urogram W 3D Lizbeth Nava, FINISHER COLD ROLLING [address] [facility] [place] [address] Phone: tel: fax: [facility] [id number] [place] [phone] Referral ID Status Reason Start Date Expiration Date Visits Re quested Visits Authorized [id number] Closed 10/01/2020 10/31/2021 1 1 Encounter Details Date Type Department Care Team (Late st Contact Info) Description 10/01/2020 Orders Only [facility] [address] [place] [address] [address] [address] Lizbeth Nava, FINISHER COLD ROLLING [address] [facility] [place] [address] Gross hematuria (Primary Dx) Social History Tobacco Use Types Packs/Day Years Used Date Smoking Tobacco: Former Smokeless Tobacco: Never Comments:20 years ago AUDIT-C Answer Date Recorded Q1: How often do you have a drink containing alc ohol? 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 ??LESION RIGHT LUNG BASE REQUIRING FURTHER EVALUATION. ??FORMAL CT CHEST MAY BE HELPFUL. 2. ??CURRENTLY NONOBSTRUCTING LEFT RENAL PELVIS LARGE CALCULUS. PRESENCE OF SOME ENHANCEMENT IN THE UROEPITHELIUM RAISES THE POSSIBILITY OF INFLAMMATORY OR INFECTIVE CHANGE. ??MINIMAL CALIECTASIS LEFT KIDNEY. 3. ??CHOLECYSTECTOMY. 4. ??PROMINENT PROSTATE. 5. ??PENILE IMPLANT. 6. ??LESIONS IN THE LEFT KIDNEY PROBABLY CYSTIC LESIONS COULD BE CONFIRMED BY SONOGRAPHY. ??Critical result message with acuity significant has been communicated to ordering provider via the [facility] Critical Result tracking system. ??Status of follow up communication is is recorded in [facility]. Electronically signed by: Beka Steward M.D. Narrative 10/09/2020 3:05 PM CDT EXAMINATION: CT UROGRAM W 3D dated 10/09/2020 2:30 PM HISTORY: 84-year-old man gross hematuria TECHNIQUE: CT urography with pre and post contrasted images utilizing 95 mL Optiray 320. ??Digital subtraction with 2-D and 3-D reformations. FINDINGS: No priors. ??Manager Department radiograph demonstrates hyperinflated lungs. Penileimplant. ??Degeneration thoracolumbar spine. ??Calcific density left mid abdomen overlying the left kidney Lung bases: There is a nodular density present at the right lung base measuring 10 mm x 7 mm, indeterminate. 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 ??Scarring left lung base. ??No infiltrates or fluid. Precontrasted images demonstrate mild cardiomegaly. ??Small hiatal hernia. ??Calcified splenic granulomata. ??Diffuse arteriosclerosis with vascular calcifications. ??Surgical absence of the gallbladder. There is a large calculus present in the renal pelvis on the left side measuring 1.5 cm in diameter. ??Mild hydronephrosis is noted. There is no free fluid or free air. Following contrast bolus, liver and spleen remain within normal limits. ??Normal nephrogram right kidney without evidence of mass lesion or hydronephrosis. ??Renal veins are patent. ??Renal arteries are patent. ??Renal vascular calcification is seen within the renal arteries. ??There is suggestion of some enhancement around the renal pelvis in the region of the pelvic calculus. ??Within the pelvis, prostatic enlargement. ??Penile prosthesis seen with a reservoir in the right groin pelvis region. Delayed imaging demonstrates excretion from both kidneys. ??The large calculus within the left renal pelvis is nonobstructing and the ureter is opacified. ??Urinary bladder is partially distended but appears to be smooth in outline. In the coronal plane, right kidney has a bipolar measurement of 9.5 cm, left kidney 9.7 cm. ??There appear to be small cortical cyst upper pole of the left kidney with a 2nd smaller cortical cyst towards the lower pole posteriorly. ??Right kidney demonstrates no similar findings. ??3-D images demonstrate opacification of the renal collecting system with a filling defect seen within the left renal pelvis likely nonobstructive at this time. ??Minor caliectasis seen within the left kidney. ??The lumbar spine demonstrates degenerative changes particularly at L 5/S1. Procedure Note Beka Steward MD - 10/09/2020 EXAMINATION: CT UROGRAM W 3D dated 10/09/2020 2:30 PM HISTORY: 84-year-old man gross hematuria TECHNIQUE: CT urography with pre and post contrasted images utilizing 95 mL Optiray 320. Digital subtraction with 2-D and 3-D reformations. FINDINGS: No priors. Manager Department radiograph demonstrates hyperinflated lungs. Penileimplant. Degeneration thoracolumbar spine. Calcific density left mid abdomen overlying the left kidney Lung bases: There is a nodular density present at the right lung base measuring 10 mm x 7 mm, indeterminate. 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 Scarring left lung base. No infiltrates or fluid. Precontrasted images demonstrate mild cardiomegaly. Small hiatal hernia. Calcified splenic granulomata. Diffuse arteriosclerosis with vascular calcifications. Surgical absence of the gallbladder. There is a large calculus present in the renal pelvis on the left side measuring 1.5 cm in diameter. Mild hydronephrosis is noted. There is no free fluid or free air. Following contrast bolus, liver and spleen remain within normal limits. Normal nephrogram right kidney without evidence of mass lesion or hydronephrosis. Renal veins are patent. Renal arteries are patent. Renal vascular calcification is seen within the renal arteries. There is suggestion of some enhancement around the renal pelvis in the region of the pelvic calculus. Within the pelvis, prostatic enlargement. Penile prosthesis seen with a reservoir in the right groin pelvis region. Delayed imaging demonstrates excretion from both kidneys. The large calculus within the left renal pelvis is nonobstructing and the ureter is opacified. Urinary bladder is partially distended but appears to be smooth in outline. In the coronal plane, right kidney has a bipolar measurement of 9.5 cm, left kidney 9.7 cm. There appear to be small cortical cyst upper pole of the left kidney with a 2nd smaller cortical cyst towards the lower pole posteriorly. Right kidney demonstrates no similar findings. 3-D images demonstrate opacification of the renal collecting system with a filling defect seen within the left renal pelvis likely nonobstructive at this time. Minor caliectasis seen within the left kidney. The lumbar spine demonstrates degenerative changes particularly at L 5/S1. IMPRESSION: 1. LESION RIGHT LUNG BASE REQUIRING FURTHER EVALUATION. FORMAL CT CHEST MAY BE HELPFUL. 2. CURRENTLY NONOBSTRUCTING LEFT RENAL PELVIS LARGE CALCULUS. PRESENCE OF SOME ENHANCEMENT IN THE UROEPITHELIUM RAISES THE POSSIBILITY OF INFLAMMATORY OR INFECTIVE CHANGE. MINIMAL CALIECTASIS LEFT KIDNEY. 3. CHOLECYSTECTOMY. 4. PROMINENT PROSTATE. 5. PENILE IMPLANT. 6. LESIONS IN THE LEFT KIDNEY PROBABLY CYSTIC LESIONS COULD BE CONFIRMED BY SONOGRAPHY. Critical result message with acuity significant has been communicated to ordering provider via the [facility] Critical Result tracking system. Status of follow up communication is is recorded in [facility]. Electronically signed by: Beka Steward M.D. us Lizbeth Nava FINISHER COLD ROLLING IMG CT PROCEDURES Final Resul t documented in this encounter Visit Diagnoses Diagnosis Gross hematuria- Primary Gross hematuria documented in this encounter Care Teams Conflict Resolution Professional Relationship Specialty Start Date End Date Angelo Mccloud MD [address] [place] [address] PCP - General 10/01/20 documented as of this encounter
--- OUTSIDE RECORDS SUMMARY | 2024-06-01 02:23 | XMS_ITS | Encounter Summary ---
Author Organization [facility] Address [address] [place] [address] Phone Care Team Providers Care Security Professionals Name Role Phone Unavailable Primary Care Provider Unavailabl e Encounter Details Date Type Department Care Team (Late st Contact Info) Description 08/17/2016 Orders Only [facility] [place], [place] Aj Wheatley MD [address] [place] [address] [place] [address] Social History Tobacco Use Types Packs/Day Years Used Date Smoking Tobacco: Never Assessed Sex and Gender Information Value Date Recorded Sex Assigned at Not on file 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 Aj Wheatley M.D. SEX: M [address] COLLECTED: 08/17/2016 : 1935 (Age: 80) [place], [place] ??[address] RECEIVED: 08/18/2016 REPORTED 08/20/2016 ? DERMATOPATHOLOGY REPORT RESULTS ?? DIAGNOSIS: SKIN, LEFT CHEEK, EXCISION: ? RESIDUAL BASAL CELL CARCINOMA AND SCAR FROM A PREVIOUS PROCEDURE Note: ??The lesion appears to have been completely removed in this multiply- sectioned specimen. tjb/isr Lidia Campa M.D. ??Electronic Signature: 08/20/2016 14:25:11 CLINICAL INFORMATION BCC; C44.310. SPECIMEN DATA MICROSCOPIC DESCRIPTION: Irregular aggregates of atypical basal epithelial cells with palisading of their peripheral nuclei are present within the dermis. (C44.91) ??There is a proliferation of fibroblasts aligned parallel to the skin surface interposed among linearly arranged, thickened collagen bundles and small blood vessels. (L90.5) GROSS DESCRIPTION: Received in a formalin-containing bottle is an elliptical piece of gomez, wrinkled skin and adipose tissue measuring 3.3 by 1.4 by 0.6 cm. An orienting notch is present as indicated by the submitting physician designating the inferior aspect of the specimen and the notch is placed in the 12:00 position. ??The 12:00-6:00 surgical margin is inked black. ??The 6:00-12:00 surgical margin is inked blue. ??The specimen bears a red-gomez, crusted, well circumscribed area measuring 0.5 by 0.4 cm. ??The specimen is sectioned into 14 pieces and submitted in 8 cassettes. ??The tip with the suture is submitted in the first cassette. ??The opposite tip is submitted in the second cassette. The tips are tagged red for orienting purposes. ??Due to shrinkage, measurements may be different than those at time of procedure. ??Due to the nature of the specimen, extended processing is required. cdh/drm The characteristics of some immunohistochemical and immunofluorescence stains as well as in-situ hybridization tests were determined by the [facility] in ongoing software quality assurance engineer and in compliance with regulations drawn from the Clinical Laboratory Improvement Act of 1988 (CLIA '88). These tests may rely on the use of analyte specific reagents that are subject to specific labeling requirements by the [place] FDA, and may only be performed in a facility that is certified by the [facility] as a high-complexity laboratory under CLIA '88. These tests are used for clinical purposes and are not investigational.For lab developed tests and [facility], the validation has been reviewed; the performance is considered acceptable for patient testing. [facility]IR has not been approved by the [place] FDA; lipemic/hemolyzed samples can affect the diagnosis. Aj Wheatley MD LAB PATHOLOGY ORDERABLES Elva rand Result [facility] [address] [place] [address] documented in this encounter Visit Diagnoses Not on filedocumented in this encounter
--- OUTSIDE RECORDS SUMMARY | 2024-06-01 02:23 | XMS_ITS | Encounter Summary ---
Author Organization [facility] Address [address] [place] [address] Care Team Providers Care Plate Embosser Name Role Phone Unavailable Primary Care Provider Unavailabl e Encounter Details Date Type Department Care Team (Late st Contact Info) Description 09/29/2007 9:34 AM CDT - 09/30/2007 1:36 PM CDT Hospital Encounter [facility], [place] [address] [place] [address] Social History Tobacco Use Types Packs/Day Years Used Date Smoking Tobacco: Never Assessed Sex and Gender Information Value Date Recorded Sex Assigned at Not on file 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
--- OUTSIDE RECORDS SUMMARY | 2024-06-01 02:23 | XMS_ITS | Encounter Summary ---
Author Organization [facility] Address [address] [place] [address] Phone Care Team Providers Care Press And Blow Machine Tender Name Role Phone Angelo Mccloud MD Primary Care Provider [phone] Reason for Visit * Reason Comments Cyst * Consultation (Routine) - Closed Specialty Diagnoses / Procedures Referred By Contelvis t Referred To Contact Urology Diagnoses Other microscopic hematuria Angelo Mccloud MD [address] [facility] [address] [place] [address] Phone: tel: fax: [facility] (All Locations) Referral ID Status Reason Start Date Expiration Date V isits Requested Visits Authorized [id number] Closed Specialty Services Required 10/01/2020 10/31/2021 99 [phone] Encounter Details Date Type Department Care Team (Late st Contact Info) Description 12/09/2020 2:40 PM CDT Office Visit [facility]) - [facility] Urology [address] 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 Vivar is a 85 y.o. WM who was consulted for gross hematuria when he presented to [facility] with chest pain and shortness of breath. He presents today for cystoscopy to complete an evaluation of grosshematuria. He admits to a weak stream, but he denies urgency, frequency and dysuria. He is a non smoker. Cystoscopy Preparation .. Results for orders placed or performed during the hospital encounter of 09/29/20 Urine culture Urine, clean voided Specimen: Urine, clean voided Result Value Ref Range Report Final Report: Less than 100,000 colonies/mL (clinically insignificant growth based on current clinical standards) Organism (CLINICALLY INSIGNIFICANT GROWTH Basic metabolic panel Result Value Ref Range Sodium 141 135 - 145 mmol/L Potassium, pl 3.9 3.3 - 4.9 mmol/L Chloride 105 97 - 110 mmol/L CO2 25 22 - 32 mmol/L Anion gap 11 2 - 15 mmol/L BUN 20 8 - 25 mg/dL Creatinine 1.18 0.80 - 1.30 mg/dL Glucose 95 70 - 199 mg/dL Calcium 9.0 8.5 - 10.3 mg/dL Basic metabolic panel Result Value Ref Range Sodium 142 135 - 145 mmol/L Potassium, pl 4.1 3.3 - 4.9 mmol/L Chloride 107 97 - 110 mmol/L CO2 28 22 - 32 mmol/L Anion gap 7 2 - 15 mmol/L BUN 22 8 - 25 mg/dL Creatinine 1.02 0.80 - 1.30 mg/dL Glucose 94 70 - 199 mg/dL Calcium 8.8 8.5 - 10.3 mg/dL CBC with auto differential Result Value Ref Range WBC 7.2 3.8 - 9.9 K/cumm Hgb 14.1 13.0 - 17.5 g/dL Hct 43.5 38.9 - 50.3 % Plt 188 150 - 400 K/cumm MPV 9.9 9.1 - 12.3 fL RBC 4.26 (L) 4.30 - 5.80 M/cumm MCV 102.1 (H) 81.3 - 96.4 fL MCH 33.1 27.1 - 33.3 pg MCHC 32.4 32.3 - 35.7 g/dL RDW CV 13.1 11.1 - 14.9 % RDW SD 49.1 (H) 35.7 - 48.1 fL NRBC abs 0.00 0.00 - 0.01 K/cumm Differential, auto Result Value Ref Range Neutrophil abs 5.1 1.7 - 6.5 K/cumm Imm gran abs 0.0 0.0 - 0.1 K/cumm Lymphocyte abs 1.3 0.8 - 3.3 K/cumm Monocyte abs 0.7 0.2 - 0.8 K/cumm Eosinophil abs 0.1 0.0 - 0.5 K/cumm Basophil abs 0.0 0.0 - 0.1 K/cumm Neutrophil pct 70.6 % Imm gran pct 0.4 % Lymphocyte pct 17.8 % Monocyte pct 9.7 % Eosinophil pct 1.1 % Basophil pct 0.4 % eGFR Result Value Ref Range GFR 67 mL/min/1.73 m2 eGFR Result Value Ref Range GFR 56 mL/min/1.73 m2 Troponin T high-sensitivity Result Value Ref Range Trop T hs 106 (H) <=22 ng/L Troponin T high-sensitivity series (baseline, 2hr, 4hr, 6hr) Result Value Ref Range Trop T hs 98 (H) <=22 ng/L Troponin T high-sensitivity 2-hour Result Value Ref Range Trop T hs 96 (H) <=22 ng/L Trop T hs delta -2 ng/L Trop T hs interp Insignificant Troponin T high-sensitivity 4-hour Result Value Ref Range Trop T hs 98 (H) <=22 ng/L Trop T hs delta 0 ng/L Trop T hs interp Insignificant Troponin T high-sensitivity 6-hour Result Value Ref Range Trop T hs 98 (H) <=22 ng/L Trop T hs delta 0 ng/L Trop T hs interp Insignificant Basic metabolic panel Result Value Ref Range Sodium 141 135 - 145 mmol/L Potassium, pl 4.0 3.3 - 4.9 mmol/L Chloride 103 97 - 110 mmol/L CO2 27 22 - 32 mmol/L Anion gap 11 2 - 15 mmol/L BUN 22 8 - 25 mg/dL Creatinine 1.11 0.80 - 1.30 mg/dL Glucose 91 70 - 199 mg/dL Calcium 8.8 8.5 - 10.3 mg/dL eGFR Result Value Ref Range GFR 61 mL/min/1.73 m2 POCT activated clotting time Result Value Ref Range ACT, POC 234 Seconds Last Upper Tract Imaging: CT urogram 10/09/20 - 1. LESION RIGHT LUNG BASE REQUIRING FURTHER EVALUATION. FORMAL CT CHEST MAY BE HELPFUL. 2. CURRENTLY NONOBSTRUCTING LEFT RENAL PELVIS LARGE CALCULUS. PRESENCE OF SOME ENHANCEMENT IN THE UROEPITHELIUM RAISES THE POSSIBILITY OF INFLAMMATORY OR INFECTIVE CHANGE. MINIMAL CALIECTASIS LEFT KIDNEY. 3. CHOLECYSTECTOMY. 4. PROMINENT PROSTATE. 5. PENILE IMPLANT. 6. LESIONS IN THE LEFT KIDNEY PROBABLY CYSTIC LESIONS Cystoscopy Cancelled. We will perform at the time of Ureteroscopy for left renal pelvic stone extraction. A/P 85 yo WM with a 15 mm stone in the left renal pelvis who had intermittent mild hematuria. He is satisfied with his voiding pattern despite the large prostate seen on CT scan. He has hx of ESWL for a left ureteral stone. We discussed the various treatment options for the stone that include perc, ureteroscopy and ESWL. For the definitive nature of ureteroscopy with laser ablation, this is His choice. documented in this encounter Plan of Treatment Not on file documented as of this encounter Visit Diagnoses Diagnosis Kidney stone- Primary Calculus of kidney Hematuria, gross Gross hematuria Benign prostatic hyperplasia without lower urinary tract symptoms documented in this encounter Historical Medications * This list may reflect changes made after this encounter. clotrimazole-be tamethasone (LOTRISONE) cream Apply 1 application topically as needed 08/14/2013 vitamin E (AQUASOL E, D-ALPHA TOCOPHEROL, ORAL) vitamin E QD 04/09/2013 1 finasteride (PROSCAR) 5 mg tablet finasteride 5 mg tablet Take 1 tablet every day by oral route. 1 cyanocobalamin (Vitamin B-12) 1,000 mcg/mL injection cyanocobalamin (vit B-12) 1,000 mcg/mL injection solution Inject 1 mL every month by intramuscular route. 1 added in this encounter Care Teams Press And Blow Machine Tender Relationship Specialty Start Date End Date Angelo Mccloud MD [address] [place] [address] PCP - General 10/01/20 documented as of this encounter
--- OUTSIDE RECORDS SUMMARY | 2024-06-01 02:23 | XMS_ITS | Encounter Summary ---
Author Organization [facility] Address [address] [place] [address] Phone Care Team Providers Care School Counselor Name Role Phone Angelo Mccloud MD Primary Care Provider [phone] Encounter Details Date Type Department Care Team (Late st Contact Info) Description 12/16/[address] 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 Instructions for Surgery Dear Mr. Vivar: Thank you for choosing [facility] for your surgical care. Your surgery has been scheduled for 01/01/21 at [facility] ([facility] [address] [facility]. Please report to the Surgery Center located in the main hospital. Please see the attached map. Your procedure is scheduled as OUTPATIENT, meaning you will be discharged after surgery. Please remember that after any procedure in the hospital, you must have someone to drive you home. You should arrive at 1130 AM. Your procedure is scheduled to begin approximately 2 hours after yourarrival. Please bring a book or magazine as delays may occur. Your pre operative labs should be obtained on 12/19/20 at your local lab. Please fax results to . Please note the following surgical instructions: Please contact [facility] at [phone] to arrange a pre-operative testing appointment. This testing should be performed 10-30 days prior to your scheduled procedure. If this testing is not performed, your procedure will be cancelled. Please review the enclosed brochures containing information about your upcoming surgery. You should have nothing to eat or drink after Midnight the night before your surgery. You should stop all aspirin and aspirin containing products 7 days prior to surgery. Examples include Motrin, Aleve, Naprosyn, Advil and Ibuprofen. See attached for a complete list. You may take Tylenol. If you take a prescription blood thinner, you need to contact the prescribing doctor for instructions on when you can stop taking it. Please share that information with us as soon as possible. If you take insulin or medication for diabetes, please contact your primary care doctor for surgeryday instructions. If you have a cardiac condition, you should see your payroll supervisor for clearance prior to surgery. Please contact his/her office and ask them to send a cardiac clearance to our office. If you use a device to treat sleep apnea (CPAP, Bi-PAP, mouth guard), please bring it with you to the hospital. If you have any questions, please do not hesitate to call Stacy at [phone]. documented in this encounter Plan of Treatment Scheduled Orders Name Type Priority Associated Diagnoses Orde r Schedule Basic metabolic panel Lab Routine Encounter for pre-operative laboratory testing Expected: 12/19/2020, Expires: 12/16/2021 CBC with auto differential Lab Routine Encounter for pre-operative laboratory testing Expected: 12/19/2020, Expires: 12/16/2021 Urine culture Urine, clean voided Microbiology Routine Encounter for pre-operative laboratory testing Urinary tract infection without hematuria, site unspecified Expected: 12/19/2020, Expires: 12/16/2021 documented as of this encounter Visit Diagnoses Diagnosis Urinary tract infection without hematuria, site unspecified- Primary Encounter for pre-operative laboratory testing documented in this encounter Care Teams School Counselor Relationship Specialty Start Date End Date Angelo Mccloud MD [address] [place] [address] PCP - General 10/01/20 documented as of this encounter
--- OUTSIDE RECORDS SUMMARY | 2024-06-01 02:23 | XMS_ITS | Encounter Summary ---
Author Organization [facility] Address [address] [place] [address] Care Team Providers Care Guide Foreign Tour Name Role Phone Unavailable Primary Care Provider Unavailabl e Encounter Details Date Type Department Care Team (Late st Contact Info) Description 10/05/2011 6:47 AM CDT - 10/07/2011 12:50 PM CDT Hospital Encounter [facility] Yaw Acosta MD [address] [place] [address] Coronary atherosclerosis of [place] coronary artery; Hemorrhage of rectum and anus; Other and unspecified hyperlipidemia; Other specified chronic obstructive airways disease; Glaucoma; Other depressive disorder; Cataract; Generalized osteoarthrosis, involving multiple sites; Hypertrophy of prostate without urinary obstruction and other lower urinary tract symptoms (LUTS); Hypotension; Personal history of tobacco use, presenting hazards to health; 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; Encounter for other specified cardiac device in situ; Encounter for long-term (current) use of aspirin; Encounter for long-term use of antiplatelets/antithrom botics Social History Tobacco Use Types Packs/Day Years Used Date Smoking Tobacco: Never Assessed Sex and Gender Information Value Date Recorded Sex Assigned at Not on file 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 Gender Identity Not on file Sexual Orientation Not on file documented as of this encounter Last Filed Vital Signs Vital Sign Reading Time Taken Comments Blood Pressure 95/57 10/07/2011 7:53 AM CDT Pulse 77 10/07/2011 7:53 AM CDT Temperature - - Respiratory Rate - - Oxygen Saturation - - Inhaled Oxygen Concentration - - Weight - - Height - - Body Mass Index - - documented in this encounter Plan of Treatment Not on file documented as of this encounter Visit Diagnoses Diagnosis Coronary atherosclerosis of [place] coronary artery Hemorrhage of rectum and anus Other and unspecified hyperlipidemia Other specified chronic obstructive airways disease Glaucoma Unspecified glaucoma Other depressive disorder Cataract Unspecified cataract Generalized osteoarthrosis, involving multiple sites Hypertrophy of prostate without urinary obstruction and other lower urinary tract symptoms (LUTS) Hypotension Unspecified hypotension Personal history of tobacco use, presenting hazards to health 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
--- OUTSIDE RECORDS SUMMARY | 2024-06-01 02:23 | XMS_ITS | Encounter Summary ---
Author Organization [facility] Healthcare Address [address] [place] [id number] Care Team Providers Care Employment Director Name Role Phone Angelo Mccloud MD Primary Care Provider [phone] Encounter Details Date Type Department Care Team (Late st Contact Info) Description 01/01/2021 1:00 PM CDT Anesthesia Event [facility] Operating Room [address] [place] [address] Felice Gómez MD [address] [place] [address] Anesthesia Record Procedure Summary Procedure Name Responsible Anesthesiologist Anesthesia Start Time Anesthesia Stop Time CYSTOSCOPY, URETEROSCOPY WITH LASER STONE ABLATION (Left: Perineum) Felice Gómez MD 01/01/21 1300 01/01/21 1415 Events Date Time Event Comment 01/01/2021 1249 1300 An Start 1300 An Start Data 1300 In Room 1307 An Induction The patient was reevaluated immediately before moderate or deep sedation use and before anesthesia induction. 1308 An Intubation 1309 Anesthesia Ready 1315 Proc Start 1316 Incision Start 1409 Proc Fin 1412 An Extubation 1412 an stop data 1415 Out of Room 1415 Handoff to RN I completed my handoff to the receiving nurse during which we: 1. Patient identified 2. Responsible provider identified 3. Pertinent medical history reviewed 4. Procedure type and surgical course discussed 5. Intraoperative anesthetic management and any significant issues discussed 6. Expectations and concerns for postop period discussed 7. Questions solicited from receiving nurse 8. Patient disposition at the time of handoff: No value filed. 1415 An Stop Meds Name Total fentaNYL 100 mcg lidocaine (CARDIAC) syringe 2 % 50 mg propofol 100 mg ondansetron 4 mg phenylephrine syringe 100 mcg/ml 500 mcg ceFAZolin (ANCEF) 1 gram/10 mL in steril e water (premix) 2,000 mg 2,000 mg dexamethasone 4 mg/ml 4 mg Lactated Ringer's (LR) infusion 900 mL * Agents Name O2 N2O Sevoflurane Inspired Sevoflurane * Blood No blood administrations on file. Lines, Drains, and Airways Type Details Placement Removal Peripheral IV Placement Date: 10/09/20; Placement Time: 1419; Catheter Size: 22 G; Orientation: Anterior, Distal, Right, Upper; Location: Arm; Site Prep: Chlorhexidine; Technique: Anatomical landmarks; Inserted by: LO LEE; Insertion Attempts: 1; Patient Tolerance: Tolerated well 10/09/20 1419 by Cam Garcia RT Peripheral IV Placement Date: 01/01/21; Placement Time: 1129; Catheter Size: 22 G; Orientation: Left, Posterior; Location: Hand; Inserted by: Chely; Insertion Attempts: 1; Removal Date: 01/01/21; Removal Time: 1521 01/01/21 1129 by Addie Crane RN 01/01/21 1521 by Addie Crane RN Supraglottic Airway Placement Date: 01/01/21; Placement Time: 1317 (created via procedure documentation); Mask Ventilation: 0; Size: 4; Insertion Attempts: 1; Removal Date: 01/01/21; Removal Time: 1412 01/01/21 1317 by Vaishnavi Nolan CRNA 01/01/21 1412 by Vaishnavi Nolan CRNA RETIRED Surgical Site 01/01/21; 1351; Le ft; Perineum; 05/01/24 (Retired LDA, Removed/Completed by [facility] with LDA Utility); 1213 (Retired LDA, Removed/Completed by [facility] with LDA Utility) 01/01/21 1351 by Luli German RN 05/01/24 1213 by Discharge Provider, Automatic documented in this encounter Social History Tobacco Use Types Packs/Day Years [...] on file 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 Gender Identity Not on file Sexual Orientation Not on file documented as of this encounter OR Notes * Anesthesia Postprocedure Evaluation - Felice Gómez MD - 01/01/2021 3:21 PM CDT Patient: Rogerio Vivar Procedure Summary Date: 01/01/21 Room / Location: OPERATING ROOM 5 / OPERATING ROOM Anesthesia Start: 1300 Anesthesia Stop: 1415 Procedures: CYSTOSCOPY, URETEROSCOPY WITH LASER STONE ABLATION (Left Perineum) Placement Stent - Ureteral (Left Ureter) Diagnosis: Stone in renal pelvis (Stone in renal pelvis [N20.0]) Providers: Martin Alvarado MD Responsible Provider: Felice Gómez MD Anesthesia Type: general ASA Status: 3 Anesthesia Type: general Last vitals BP 136/73 Pulse 72 Temp 37.2 ??C (99 ??F) Resp 14 SpO2 (!) 88% Anesthesia Post Evaluation Patient location during evaluation: PACU Patient participation: complete - patient participated Level of consciousness: fully awake Pain score: 0 Pain management: adequate Airway patency: patent and adequate Evidence of recall: no Cardiovascular status: acceptable Respiratory status: acceptable and room air Hydration status: acceptable Pt is: normothermic Nausea/Vomiting status: none No complications documented. * Anesthesia Procedure Notes - Vaishnavi Nolan CRNA - 01/01/2021 1:16 PM CDTAssociated Order(s): Airway Airway Patient location: OR Urgency: elective Indications for airway management: anesthesia Difficult airway: no Staff: Placed by: HOTEL MAINTENANCE WORKER: Vaishnavi Nolan CRNA Emergent airway documentation: Risks and benefits discussed: yes Consent obtained: yes Consent given by: patient Airway prep: Preoxygenated: yes Patient position: sniffing Mask difficulty assessment: 0 - not attempted Spontaneous ventilation during airway: absent Sedation level during airway: GA Final airway details: Final airway type: supraglottic airway Final supraglottic airway: IGel SGA size: 4 Number of attempts: 1 * Anesthesia Preprocedure Evaluation - Felice Gómez MD - 12/30/2020 1:03 PM CDT Images from the original note were not included. Anesthesia Evaluation Rogerio Vivar is a 85 y.o. male Procedure(s): CYSTOSCOPY, URETEROSCOPY WITH LASER STONE ABLATION/ 90 min Pre-Op Diagnosis Codes: * Stone in renal pelvis [N20.0] HISTORY Past Medical History Information obtained from: patient and chart. Neurological Neuro/Psych system: negative Cardiovascular + Hyperlipidemia + CAD + Unknown stent(s) type - Prior stent(s) date: 09/2020. Respiratory + COPD Dyspnea frequency: 2 days/week or less. Rescue inhaler use: 2 days/week or less. Pertinent negatives: non-smoker Hepatic / Heme Hepatic/Heme system: negative Gastrointestinal + GERD - on daily therapy. Renal / + Nephrolithiasis Endocrine / Other + Cancer history- skin cancer only. Functional Capacity Functional capacity: <4 METs and ambulates with assistance only Patient Active Problem List Diagnosis ??? CAD (coronary artery disease) ??? SOB (shortness of breath) ??? Stone in renal pelvis Past Medical History: Diagnosis Date ??? Arthritis ??? Basal cell carcinoma ??? BPH (benign prostatic hyperplasia) ??? CAD (coronary artery disease) ??? Depression ??? GERD (gastroesophageal reflux disease) ??? GI bleed ??? Headache ??? History of blood transfusion ??? HL (hearing loss) right ear ??? HLD (hyperlipidemia) ??? Kidney stones ??? Lung disease COPD ??? Sleep apnea Past Surgical History: Procedure Laterality Date ??? CARDIAC STENT PLACEMENT 3 stents ??? CAROTID ARTERY ANGIOPLASTY Right ??? CATARACT EXTRACTION, BILATERAL Bilateral ??? CHOLECYSTECTOMY ??? PENILE PROSTHESIS IMPLANT X 2 No Known Allergies Taking? Last Dose Start Date End Date Provider albuterol HFA (PROVENTIL HFA,VENTOLIN HFA,PROAIR HFA) 90 mcg/actuation inhaler -- -- Jorge Alberto Varela MD ascorbic acid, vitamin C, 500 mg capsule 06/16/17 -- Jorge Alberto Varela MD ASPIRIN ORAL 12/28/2020 08/31/12 -- Jorge Alberto Varela MD atorvastatin (LIPITOR) 20 mg tablet -- -- Jorge Alberto Varela MD brimonidine-timoloL (COMBIGAN) 0.2-0.5 % ophthalmic solution -- -- Jorge Alberto Varela MD budesonide-formoteroL (SYMBICORT) 160-4.5 mcg/actuation inhaler -- -- Jorge Alberto Varela MD buPROPion SR (WELLBUTRIN SR) 150 mg 12 hr tablet -- -- Jorge Alberto Varela MD cholecalciferol, vitamin D3, (VITAMIN D3 ORAL) -- -- Jorge Alberto Varela MD clopidogreL (PLAVIX) 75 mg tablet 12/28/2020 10/02/20 10/02/21 Jude Mcfadden MD Take 1 tablet (75 mg total) by mouth daily clotrimazole-betamethasone (LOTRISONE) cream 08/14/13 -- Jorge Alberto Varela MD doxazosin (CARDURA) 4 mg tablet -- -- Jorge Alberto Varela MD fluticasone propionate (FLONASE) 50 mcg/actuation nasal spray -- -- Jorge Alberto Varela MD gabapentin (NEURONTIN) 300 mg capsule -- -- Jorge Alberto Varela MD isosorbide mononitrate ER (IMDUR) 30 mg 24 hr tablet -- -- Jorge Alberto Varela MD latanoprost (XALATAN) 0.005 % ophthalmic solution -- -- Jorge Alberto Varela MD multivitamin capsule 12/29/2020 08/31/12 -- Jorge Alberto Varela MD omeprazole (PriLOSEC) 20 mg capsule -- -- Jorge Alberto Varela MD vitamin E (vitamin E) 400 unit capsule 08/31/12 -- Jorge Alberto Varela MD No current facility-administered medications for this encounter. Current Outpatient Medications: ??? multivitamin capsule ??? albuterol HFA (PROVENTIL HFA,VENTOLIN HFA,PROAIR HFA) 90 mcg/actuation inhaler ??? ascorbic acid, vitamin C, 500 mg capsule ??? ASPIRIN ORAL ??? atorvastatin (LIPITOR) 20 mg tablet ??? brimonidine-timoloL (COMBIGAN) 0.2-0.5 % ophthalmic solution ??? budesonide-formoteroL (SYMBICORT) 160-4.5 mcg/actuation inhaler ??? buPROPion SR (WELLBUTRIN SR) 150 mg 12 hr tablet ??? cholecalciferol, vitamin D3, (VITAMIN D3 ORAL) ??? clopidogreL (PLAVIX) 75 mg tablet ??? clotrimazole-betamethasone (LOTRISONE) cream ??? doxazosin (CARDURA) 4 mg tablet ??? fluticasone propionate (FLONASE) 50 mcg/actuation nasal spray ??? gabapentin (NEURONTIN) 300 mg capsule ??? isosorbide mononitrate ER (IMDUR) 30 mg 24 hr tablet ??? latanoprost (XALATAN) 0.005 % ophthalmic solution ??? omeprazole (PriLOSEC) 20 mg capsule ??? vitamin E (vitamin E) 400 unit capsule Social History Tobacco Use Smoking Status Former Smoker Smokeless Tobacco Never Used Tobacco Comment 20 years ago Substance and Sexual Activity Alcohol Use Not on file Substance and Sexual Activity Drug Use Never Family History Adopted: Yes There were no vitals filed for this visit. PT: No results found for requested labs within last 720 hours. INR: No results found for requested labs within last 720 hours. APTT: No results found for requested labs within last 720 hours. Hgb A1C: No results found for requested labs within last 720 hours. CBC RBC: No results found for requested labs within last 720 hours. RDW: No results found for requested labs within last 720 hours. MCHC: No results found for requested labs within last 720 hours. MCH: No results found for requested labs within last 720 hours. MCV: No results found for requested labs within last 720 hours. Hct: No results found for requested labs within last 720 hours. Hgb: No results found for requested labs within last 720 hours. WBC: No results found for requested labs within last 720 hours. MPV: No results found for requested labs within last 720 hours. Platelets: No results found for requested labs within last 720 hours. RDW CV: No results found for requested labs within last 720 hours. RDW Sd: No results found for requested labs within last 720 hours. BMP Glucose: No results found for requested labs within last 720 hours. Calcium: No results found for requested labs within last 720 hours. Sodium: No results found for requested labs within last 720 hours. Potassium: No results found for requested labs within last 720 hours. CO2: No results found for requested labs within last 720 hours. Chloride: No results found for requested labs within last 720 hours. BUN: No results found for requested labs within last 720 hours. Creatinine: No results found for requested labs within last 720 hours. DOS Physical Exam Medical history, medications, and allergies reviewed. Attestation: I endorse the findings of the anesthesia pre-evaluation assessment dated: 01/01/2021. Airway Exam: Mallampati: I Cervical ROM: FROM TM distance: >4 Jaw ROM: full Cardiovascular Exam: Rate: regular Rhythm: regular Pulmonary Exam: LCTA, bilat EENT Exam: trachea midline Dental Exam: Upper dentures and lower dentures Skin Exam: Skin is warm. Current state: Patient's current state is cooperative. Anesthesia Plan ASA 3 Planned anesthesia: General Team communication plan: LMA Induction: Induction: intravenous. Postoperative Plan: Postoperative administration opioids intended. No postoperative mechanical ventilation intended. Patient's planned disposition post procedure is Outpatient. No trial extubation planned. Informed Consent: Discussed plan with attending and HOTEL MAINTENANCE WORKER. Anesthesia plan and risks discussed with patient and spouse. Consent and Attending signature: I and/or my designee have discussed the anesthesia plan, benefits, possible alternatives, parental presence at time of induction (if indicated), and clinically relevant risks that may include dental injury, unintentional awareness, and/or other complications. The patient and/or parent/legal guardian understand, and agree to proceed. All questions answered. documented in this encounter Plan of Treatment Not on file documented as of this encounter Procedures Procedure Name Priority Date/Time Associated Diagnosis Comments MN AN ELECTIVE SUPRAGLOTTIC AIRWAY Routine 01/01/2021 1:16 PM CDT documented in this encounter Results * MN AN ELECTIVE SUPRAGLOTTIC AIRWAY (01/01/2021 1:16 PM CDT) Narrative Vaishnavi Nolan CRNA - 01/01/2021 1:16 PM CDT Vaishnavi Nolan CRNA ? 01/01/2021 ??1:17 PM Airway Patient location: OR Urgency: elective Indications for airway management: anesthesia Difficult airway: no Staff: Placed by: HOTEL MAINTENANCE WORKER: Vaishnavi Nolan CRNA Emergent airway documentation: Risks and benefits discussed: yes Consent obtained: yes Consent given by: patient Airway prep: Preoxygenated: yes Patient position: sniffing Mask difficulty assessment: 0 - not attempted Spontaneous ventilation during airway: absent Sedation level during airway: GA Final airway details: Final airway type: supraglottic airway Final supraglottic airway: IGel SGA size: 4 Number of attempts: 1 us Arturo Zamudio MD ANESTHESIA ORDERABLES Final Re sult documented in this encounter Visit Diagnoses Not on filedocumented in this encounter Administered Medications Inactive Administered Medications - up to 3 most recent administrations Medication Order MAR Action Action Date Dose Rate Site ceFAZolin (ANCEF) 1 gram/10 mL in sterile water (premix) 2,000 mg 2,000 mg, intravenous, at 400 mL/hr, Administer over 3 Minutes, Once, On Xochilt 01/01/21 at 1300, For 1 dose, Indications: Prophylaxis, SurgicalIndications:Prophylaxis, Surgical Given 01/01/2021 1:15 PM CDT 2,000 mg dexAMETHasone (DECADRON) 4 mg/mL injection intravenous, Administer over 2 Minutes, As needed, Starting on Xochilt 01/01/21 at 1319, Anesthesia Intra-op Given 01/01/2021 1:19 PM CDT 4 mg fentaNYL (SUBLIMAZE) preservative free injection intravenous, As needed, Starting on Xochilt 01/01/21 at 1307, Anesthesia Intra-op Given 01/01/2021 1:07 PM CDT 100 mcg Lactated Ringer's (LR) infusion 30 mL/hr, intravenous, Continuous, Starting on Xochilt 01/01/21 at 1130, Pre-Op Restarted 01/01/2021 2:05 PM CDT Rate/Dose Verify 01/01/2021 1:00 PM CDT 50 mL/h r New Bag 01/01/2021 11:32 AM CDT 30 mL/hr 30 mL/hr lidocaine (cardiac) (XYLOCAINE) preservative free injection intravenous, As needed, Starting on Xochilt 01/01/21 at 1307, Anesthesia Intra-op, Indications: Ventricular ArrhythmiasIndications:Ventricular Arrhythmias Given 01/01/2021 1:07 PM CDT 50 mg ondansetron (ZOFRAN) injection intravenous, Administer over 2 Minutes, As needed, Starting on Xochilt 01/01/21 at 1319, Anesthesia Intra-op Given 01/01/2021 1:19 PM CDT 4 mg phenylephrine (HERMINIO-SYNEPHRINE) 1 mg/10 mL (100 mcg/mL) in sodium chloride 0.9% (premix) intravenous, As needed, Starting on Xochilt 01/01/21 at 1309, Anesthesia Intra-op Given 01/01/2021 1:49 PM CDT 100 mcg Given 01/01/2021 1:35 PM CDT 100 mcg Given 01/01/2021 1:21 PM CDT 100 mcg propofoL (DIPRIVAN) 10 mg/mL IV intravenous, As needed, Starting on Xochilt 01/01/21 at 1307, Anesthesia Intra-op Given 01/01/2021 1:07 PM CDT 100 mg documented in this encounter Care Teams Employment Director Relationship Specialty Start Date End Date Angelo Mccloud MD [address] [address] PCP - General 10/01/20 documented as of this encounter
--- OUTSIDE RECORDS SUMMARY | 2024-06-01 02:23 | XMS_ITS | Encounter Summary ---
Author Organization [facility] Address [address] [place] [address] Phone Care Team Providers Care Cigar Head Stringer Name Role Phone Angelo Mccloud MD Primary Care Provider [phone] Reason for Visit * Consultation (Routine) - Closed Specialty Diagnoses / Procedures Referred By Contelvis t Referred To Contact Urology Diagnoses Other microscopic hematuria Angelo Mccloud MD [address] [facility] [address] [place] [address] Phone: tel: fax: [facility] (All Locations) Referral ID Status Reason Start Date Expiration Date V isits Requested Visits Authorized [id number] Closed Specialty Services Required 10/01/2020 10/31/2021 99 99 Encounter Details Date Type Department Care Team (Late st Contact Info) Description 01/16/2021 1:40 PM CDT Office Visit [facility]) - [facility] [address] [address] Martin Alvarado MD [id number] [place] [address] [place] [address] Screening for hematuria or proteinuria (Primary Dx); Other microscopic hematuria; History of renal stone; Encounter for removal of ureteral stent Social History Tobacco Use Types Packs/Day Years [...] on file 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 Vivar is a 85 y.o. WM who presents for cystoscopy to remove an indwelling ureteral stent. He presented with gross hematuria and was found to have a non- obstructing 1.5 cm stone in the left renalpelvis. He underwent ureteroscopy and laser ablation of stone and stone extraction on 01/01/21. He was left with an indwelling left ureteral stent. He Presents for removal of the left ureteral stent. He is doing well and denies fever, chills and severe gross hematuria. He has a penile implant and has no other complaints. Cystoscopy Preparation .. Results for orders placed or performed in visit on 01/16/21 POCT urinalysis dipstick Result Value Ref Range Color, Urine, POC Dark Francesca Glucose, ur, POC Negative Negative mg/dL Ketones, ur, POC Negative Negative Blood, ur, POC 3+ (A) Negative pH, ur, POC 5.0 5.0 - 8.0 Protein, ur, POC 1+ (A) Negative Nitrite, ur, POC Negative Negative Leukocytes, ur, POC Negative Negative Lot Number x The skin was prepped with betadine. Lidocaine in lubricant jelly was instilled into the urethra. The flexible cystoscope was introduced into the urethra and advanced into the bladder. URETHRA: Normal without strictures or lesions PROSTATE: normal mucosa, but elongated and obstructive, bi-lobar with an elevated bladder neck TRIGONE & UOs: Normal anatomy with efflux of clear urine. No mucosal lesions or subtrigonal masses. BLADDER MUCOSA: normal, without neoplasms or other lesions DETRUSOR: normal capacity, without flaccidity, without excessive compliance, without diverticula, without uninhibited bladder contractions on fillings. mild trabeculation Procedure A grasper was used to pull the indwelling stent out to the urethral meatus, and the stent was removed intact. There were no complications. Assessment Plan Mr. Vivar is doing fine after left renal stone extraction and today's stent removal. He has history of prior stone treatments, and we discussed the general recommendations to lower the risk of future stones. I recommend a follow up in our office in 6 months for urinalysis and a KUB. At that time, I would expect that we will obtain a 24 hour urine for stone analysis and blood work inorder to determine theetiology of the recurrent stones. documented in this encounter Plan of Treatment Not on file documented as of this encounter Procedures Procedure Name Priority Date/Time Associated Diagnosis Comments POCT URINALYSIS DIPSTICK Routine 01/16/2021 1:21 PM CDT Screening for hematuria or proteinuria documented in this encounter Results * (ABNORMAL) POCT urinalysis dipstick (01/16/2021 1:21 PM CDT) Color, Urine, POC Dark Francesca Glucose, ur, POC Negative Negative mg/dL Ketones, ur, POC Negative Negative Blood, ur, POC 3+(A) Negative pH, ur, POC 5.0 5.0 - 8.0 Protein, ur, POC 1+(A) Negative Nitrite, ur, POC Negative Negative Leukocytes, ur, POC Negative Negative Lot Number x Urine 01/16/2021 1:21 PM CDT us Martin Alvarado MD POINT OF CARE TEST PRIMO WADE Final Result documented in this encounter Visit Diagnoses Diagnosis Screening for hematuria or proteinuria- Primary Screening for unspecified condition Other microscopic hematuria History of renal stone Encounter for removal of ureteral stent documented in this encounter Orders Outpatient Referral Count Last Ordered Date Fir st Ordered Date AMB REFERRAL TO UROLOGY 1 01/16/2021 documented in this encounter Care Teams Cigar Head Stringer Relationship Specialty Start Date End Date Angelo Mccloud MD [address] [place] [address] PCP - General 10/01/20 documented as of this encounter
--- OUTSIDE RECORDS SUMMARY | 2024-06-01 02:23 | XMS_ITS | Encounter Summary ---
Author Organization [facility] Healthcare Address [address] [place] [address] Care Team Providers Care Service Engineer Name Role Phone Angelo Mccloud MD Primary Care Provider [phone] Encounter Details Date Type Department Care Team (Latest Contact Info) Description 01/01/2021 10:50 AM CDT - 01/01/2021 3:49 PM CDT Hospital Encounter [facility] Operating Room [address] [place] [address] [place] [id number] [facility] [address] Stone in renal pelvis Discharge Disposition: Discharge to home or self care Social History Tobacco Use Types Packs/Day Years [...] on file 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 Gender Identity Not on file Sexual Orientation Not on file documented as of this encounter Last Filed Vital Signs Vital Sign Reading Time Taken Comments Blood Pressure 136/73 01/01/2021 2:45 PM CDT Pulse 72 01/01/2021 2:55 PM CDT Temperature 37.2 ??C (99 ??F) 01/01/2021 2:19 PM CDT Respiratory Rate 14 01/01/2021 2:55 PM CDT Oxygen Saturation 88% 01/01/2021 2:55 PM CDT Inhaled Oxygen Concentration - - Weight 82.6 kg (182 lb) 01/01/2021 11:00 AM CDT Height 180.3 cm (5' 11 ) 01/01/2021 11:00 AM CDT Body Mass Index 25.38 01/01/2021 11:00 AM CDT documented in this encounter Discharge Diagnoses Diagnosis Calculus of kidney - CALCULUS OF KIDNEY Benign prostatic hyperplasia with lower urinary tract symptoms - BENIGN PROSTATIC HYPERPLASIA WITH LOWER URINARY TRACT SYMPTOMS Poor urinary stream - POOR URINARY STREAM Hyperlipidemia, unspecified - HYPERLIPIDEMIA, UNSPECIFIED Atherosclerotic heart disease of [place] coronary artery without angina pectoris - ATHEROSCLEROTIC HEART DISEASE OF [place] CORONARY ARTERY WITHOUT ANGINA PECTORIS Presence of coronary angioplasty implant and graft - PRESENCE OF CORONARY ANGIOPLASTY IMPLANT AND GRAFT Chronic obstructive pulmonary disease, unspecified (HCC) - CHRONIC OBSTRUCTIVE PULMONARY DISEASE, UNSPECIFIED Gastro-esophageal reflux disease without esophagitis - GASTRO-ESOPHAGEAL REFLUX DISEASE WITHOUT ESOPHAGITIS Personal history of other malignant neoplasm of skin - PERSONAL HISTORY OF OTHER MALIGNANT NEOPLASM OF SKIN Major depressive disorder, single episode, unspecified - MAJOR DEPRESSIVE DISORDER, SINGLE EPISODE, UNSPECIFIED Sleep apnea, unspecified - SLEEP APNEA, UNSPECIFIED Unspecified osteoarthritis, unspecified site - UNSPECIFIED OSTEOARTHRITIS, UNSPECIFIED SITE retirement (current) use of inhaled steroids - CUSTODIAL (CURRENT) USE OF INHALED STEROIDS 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 * You have nausea, vomiting or diarrhea. * Your pain medicine is not helping your pain. * You feel dizzy, very tired or like you may faint. * You have large blood clots in your urine. (Small amounts of pink-tinged urine are normal, especially after physical activity.) * You have continuous leakage of urine that is not normal for you. * You are unable to urinate Call your surgeon???s office during regular business hours if you have questions or concerns. If you need to speak to someone after regular hours or on weekends or holidays, call . Diet: Diet as tolerated. Be sure to drink plenty of fluids to ensure adequate hydration and overall better stent function. Activity: * As tolerated * Do NOT drive or operate machinery if you are taking narcotic pain medicine. * You may take showers. * Take short frequent walks every day. Climbing stairs is OK. Special Instructions: * Smoking increases wound healing time. Please refrain, or at least, reduce smoking for 4 weeks. Ifyou would like a prescription for a nicotine patch, please contact your care provider who will be happy to help. New Medications: Tylenol and ibuprofen - First line as needed for pain [place] - For severe pain not controlled by Tylenol. Do NOT exceed 4,000mg Tylenol (aka acetaminophen) in 24 hours, [place] contains Tylenol Flomax - For stent pain Pyridium - For burning with urination. This medication may turn your urine orange. FOLLOW UP: Dr. Alvarado, Martin Rogel, *'s office will call you to schedule a follow-up appointment. If you donot hear from them in 3-5 business days, please call to schedule your appointment. You have a ureteral stent in place that is not meant to be permanent. Please ensure you have an appointment scheduled for its removal. FOLLOW UP CALLS You may get a couple of follow-up phone calls from us over the next 2 days. For your information, our number may come up as unknown or a random number. If our surgical flow allows, we will attempt tomake a phone call the same day of surgery if you were discharged prior to 3pm. Regardless, we will call you the next day after surgery to follow up with you on pain control and see if you have any questions or concerns. If we are unable to reach you, we will leave a voice message if that is an option and then attempt to reach you again the following day. If we are still unable to reach you on that second day after surgery, we will stop the process of follow up calls. Please reach out to your surgeon if you have any questions or concerns. We want you to be able to say your care was EXCELLENT! If it was not, please let us know! Good and Great are not enough for us, we strive for EXCELLENCE! * Attachments The following attachments cannot be sent through Care Everywhere. * Hydrocodone/Acetaminophen (By mouth) ([place]ra[place]) * Phenazopyridine (By mouth) ([place]) * Tamsulosin (By mouth) ([place]) * General Anesthesia (Discharge Care) ([place]ra[place]) * Cystoscopy (Discharge Care) ([place]) * Ureteroscopy (Discharge Care) ([place]) documented in this encounter Medications at Time of Discharge albuterol HFA (PROVENTIL HFA,VENTOLIN HFA,PROAIR HFA) 90 mcg/actuation inhaler Inhale 2 puffs every 6 (six) hours as needed for wheezing ascorbic acid, vitamin C, 500 mg capsule Take 500 mg by mouth daily 06/16/2017 ASPIRIN ORAL Take 81 mg by mouth daily 08/31/2012 atorvastatin (LIPITOR) 20 mg tablet Take 1 tablet (20 mg total) by mouth nightly brimonidine-timol oL (COMBIGAN) 0.2-0.5 % ophthalmic solution Administer 1 drop into the right eye 2 (two) times a day budesonide-formot Giovana (SYMBICORT) 160-4.5 mcg/actuation inhaler Inhale 2 puffs 2 (two) times a day Rinse mouth with water after use. Do not swallow. buPROPion SR (WELLBUTRIN SR) 150 mg 12 hr tablet Take 1 tablet (150 mg total) by mouth 2 (two) times a day cholecalciferol, vitamin D3, (VITAMIN D3 ORAL) Take 1 capsule by mouth daily clopidogreL (PLAVIX) 75 mg tabletIndications :myocardial infarction prevention,cardio vascular disease Take 1 tablet (75 mg total) by mouth daily 30 tablet 11 10/02/2020 clotrimazole-beta methasone (LOTRISONE) cream Apply 1 application topically as needed 08/14/2013 doxazosin (CARDURA) 4 mg tablet Take 1 tablet (4 mg total) by mouth nightly fluticasone propionate (FLONASE) 50 mcg/actuation nasal spray Administer 2 sprays into each nostril as needed gabapentin (NEURONTIN) 300 mg capsule Take 1 capsule (300 mg total) by mouth nightly HYDROcodone-aceta minophen (NORCO) 5-325 mg per tabletIndications :Pain Take 1 tablet by mouth every 6 (six) hours as needed (For severe pain not controlled by Tylenol alone or Ibuprofen) 10 tablet 01/01/2021 isosorbide mononitrate ER (IMDUR) 30 mg 24 hr tablet Take 1 tablet (30 mg total) by mouth daily latanoprost (XALATAN) 0.005 % ophthalmic solution Administer 1 drop into the right eye nightly multivitamin capsule Take 1 capsule by mouth daily 08/31/2012 omeprazole (PriLOSEC) 20 mg capsule Take 1 capsule (20 mg total) by mouth daily phenazopyridine (PYRIDIUM) 100 mg tablet Take 1 tablet (100 mg total) by mouth 3 (three) times a day as needed for urinary pain 9 tablet 01/01/2021 tamsulosin (FLOMAX) 0.4 mg extended release capsule Take 1 capsule (0.4 mg total) by mouth nightly 15 capsule 01/01/2021 vitamin E (vitamin E) 400 unit capsule Take 1 capsule (400 Units total) by mouth 2 (two) times a day 08/31/2012 documented as of this encounter Ordered Prescriptions Prescription Sig Dispense Quantity Refills Last Filled Start Date End Date phenazopyridine (PYRIDIUM) 100 mg tablet Take 1 tablet (100 mg total) by mouth 3 (three) times a day as needed for urinary pain 9 tablet 01/01/2021 HYDROcodone-acetam inophen (NORCO) 5-325 mg per tabletIndications: Pain Take 1 tablet by mouth every 6 (six) hours as needed (For severe pain not controlled by Tylenol alone or Ibuprofen) 10 tablet 01/01/2021 tamsulosin (FLOMAX) 0.4 mg extended release capsule Take 1 capsule (0.4 mg total) by mouth nightly 15 capsule 01/01/2021 documented in this encounter Discharge Disposition Disposition Code Departure Means Destination Discharge to home or self care documented in this encounter H&P Notes * Martin Alvarado MD - 01/01/2021 12:09 PM CDT General H&P Subjective Patient is a 85 y.o. male with chief complaint of left renal pelvic stone. HPI: Mr. Lopes is a 85 y.o. WM who was consulted for gross hematuria when he presented to [facility] with chest pain and shortness of breath. He presents today for cystoscopy to complete an evaluation of grosshematuria. He admits to a weak stream, but he denies urgency, frequency and dysuria. He is a non smoker. His cystoscopy revealed an elongated prostatic urethra with a high bladder neck, but there were no tumors, stones or active bleeding sites. CT showed a 15 mm stone in the left renal pelvis. Past Medical History: Diagnosis Date ??? Arthritis [...] CHOLECYSTECTOMY ??? PENILE PROSTHESIS IMPLANT X 2 Medications Prior to Admission Medication Sig Dispense Refill Last Dose ??? albuterol HFA (PROVENTIL HFA,VENTOLIN HFA,PROAIR HFA) 90 mcg/actuation inhaler Inhale 2 puffs every 6 (six) hours as needed for wheezing Past Week at Unknown time ??? ascorbic acid, vitamin C, 500 mg capsule Take 500 mg by mouth daily Past Month at Unknown time ??? brimonidine-timoloL (COMBIGAN) 0.2-0.5 % ophthalmic solution Administer 1 drop into the right eye 2 (two) times a day 12/31/2020 at Unknown time ??? budesonide-formoteroL (SYMBICORT) 160-4.5 mcg/actuation inhaler Inhale 2 puffs 2 (two) times a day Rinse mouth with water after use. Do not swallow. 12/31/2020 at Unknown time ??? buPROPion SR (WELLBUTRIN SR) 150 mg 12 hr tablet Take 150 mg by mouth 2 (two) times a day 01/01/2021 at Unknown time ??? cholecalciferol, vitamin D3, (VITAMIN D3 ORAL) Take 1 capsule by mouth daily Past Week at Unknown time ??? clotrimazole-betamethasone (LOTRISONE) cream Apply 1 application topically as needed Past Monthat Unknown time ??? doxazosin (CARDURA) 4 mg tablet Take 4 mg by mouth nightly 12/31/2020 at Unknown time ??? fluticasone propionate (FLONASE) 50 mcg/actuation nasal spray Administer 2 sprays into each nostril as needed Past Month at Unknown time ??? gabapentin (NEURONTIN) 300 mg capsule Take 300 mg by mouth nightly 12/31/2020 at Unknown time ??? isosorbide mononitrate ER (IMDUR) 30 mg 24 hr tablet Take 30 mg by mouth daily 01/01/2021 at Unknown time ??? latanoprost (XALATAN) 0.005 % ophthalmic solution Administer 1 drop into the right eye nightly 01/01/2021 at Unknown time ??? multivitamin capsule Take 1 capsule by mouth daily 12/29/2020 at Unknown time ??? ASPIRIN ORAL Take 81 mg by mouth daily 12/25/2020 ??? atorvastatin (LIPITOR) 20 mg tablet Take 20 mg by mouth nightly 12/25/2020 ??? clopidogreL (PLAVIX) 75 mg tablet Take 1 tablet (75 mg total) by mouth daily 30 tablet 11 12/25/2020 ??? omeprazole (PriLOSEC) 20 mg capsule Take 20 mg by mouth daily 12/29/2020 ??? vitamin E (vitamin E) 400 unit capsule Take 1 capsule by mouth 2 (two) times a day 12/29/2020 No Known Allergies Social History Tobacco Use ??? Smoking status: Former Smoker ??? Smokeless tobacco: Never Used ??? Tobacco comment: 20 years ago Substance Use Topics ??? Alcohol use: Not on file Family History Adopted: Yes Review of Systems All other systems except the HPI are negative. Objective Vitals: Arrival Vitals [01/01/21 1100] Temp 36.7 ??C (98.1 ??F) Pulse 66 Resp 16 BP 124/69 SpO2 94 % Temp src Oral Heart Rate Source Monitor Patient Position BP Location FiO2 (%) 24hr Min/Max: Temp Min: 36.7 ??C (98.1 ??F) Max: 36.7 ??C (98.1 ??F) Pulse Min: 66 Max: 66 BP Min: 124/69 Max: 124/69 Resp Min: 16 Max: 16 SpO2 Min: 94 % Max: 94 % Most Recent : Vitals: 01/01/21 1100 BP: 124/69 Pulse: 66 Resp: 16 Temp: 36.7 ??C (98.1 ??F) SpO2: 94% No intake/output data recorded. No intake/output data recorded. Physical Exam 85 y.o. White male in no acute distress. Patient is older and trim. Ambulates without assistance. No obvious physical elements HEENT - no obvious deformities. Within normal limits. Chest - clear, not labored Regular rate and rhythm Abdomen - soft, not distended, no mass, no obvious hernia Extremity - no obvious edema, moves all extremities well Neuro - alert and orientated x4. Nonfocal Psych - attendant, competent, no obvious flight of ideas Lab/Radiology/Diagnostic Review: Lab Results Component Value Date WBC 7.2 09/29/2020 HGB 14.1 09/29/2020 HCT 43.5 09/29/2020 MCV 102.1 (H) 09/29/2020 LABPLAT 188 09/29/2020 Lab Results Component Value Date GLUCOSE 91 10/01/2020 CALCIUM 8.8 10/01/2020 SODIUM 141 10/01/2020 POTASSIUM 4.0 10/01/2020 CO2 27 10/01/2020 CHLORIDE 103 10/01/2020 BUNSER 22 10/01/2020 CREATININE 1.11 10/01/2020 IMPRESSION: ?? 1. LESION RIGHT LUNG BASE REQUIRING FURTHER EVALUATION. FORMAL CT CHEST MAY BE HELPFUL. 2. CURRENTLY NONOBSTRUCTING LEFT RENAL PELVIS LARGE CALCULUS. PRESENCE OF SOME ENHANCEMENT IN THE UROEPITHELIUM RAISES THE POSSIBILITY OF INFLAMMATORY OR INFECTIVE CHANGE. MINIMAL CALIECTASIS LEFT KIDNEY. 3. CHOLECYSTECTOMY. 4. PROMINENT PROSTATE. 5. PENILE IMPLANT. Assessment Principal Problem: Stone in renal pelvis Plan 85 yo WM with a 15 mm stone in the left renal pelvis who had intermittent mild hematuria. He is satisfied with his voiding pattern despite the large prostate seen on CT scan. He has hx of ESWL for a left ureteral stone. We discussed the various treatment options for the stone that include perc, ureteroscopy and ESWL. He elected for ureteroscopy with laser stone ablation and stent. documented in this encounter Miscellaneous Notes * Op Note - Martin Alvarado MD - 01/01/2021 1:16 PM CDT Operative Note for Ureteroscopy and Stone Extraction Attending Surgeon: Martin Alvarado MD Surgical Team: Surgeon(s) and Role: * Martin Alvarado MD - Primary Music Composition Teacher: Melissa Gautam MD DATE OF SURGERY : 01/01/2021 Anesthesia General with LMA Preoperative Diagnosis: Left renal pelvic 15 mm stone Postoperative Diagnosis: Left renal pelvic 15 mm stone Name of Operation: Procedure(s): Cystoscopy Ureteroscopy, left Laser fulgaration of left renal pelvic stone Basket extraction of left renal stone Ureteral indwelling stent placement Operative Findings: Stone location: left renal pelvis Stone size: 15 mm Stone fulgaration and extraction: Using holmium laser Stent size: 7 Kyr[place]z by 28 cm Indications: ??Cb??is an 85 y.o.??WM who was consulted for gross hematuria when he presented to [facility] with??chest pain and shortness of breath. ??He admits to a weak stream, but he denies urgency, frequencyand dysuria. He is a non smoker. His cystoscopy revealed an elongated prostatic urethra with a highbladder neck, but there were no tumors, stones or active bleeding sites. CT showed a 15 mm stone inthe left renal pelvis. The treatment options include observation with analgesics, percutaneous nephrolithotomy, ESWL and ureteroscopy with stone extraction. The patient has elected for the latter which is a most reasonableoption. OPERATIVE PROCEDURE: Mr. Lopes was given IV Cipro within 60 minutes of the start of the operation. He had stockings placed to decrease the risk of DVT. He was given anesthesia and placed in the lithotomy position.The genital area was prepped with betadine and a surgical field for cystoscopy was prepared. We placed a 22 fr cystoscope with a 30 degree lens into the urethra. We found no urethral abnormalities and advanced the scope into the bladder. There were no stones, tumors, inflammatory changes seen in the bladder. The bladder was of good capacity. There ureteral orifices were normal in position and form. We advanced a Pierson guidewire over an 8 fr catheter, and the wire was advanced up the left ureter and into the left renal pelvis. We removed the cystoscope. The 10 fr catheter was advanced over the 8 fr into the distal ureter, and a super stiff wire was advanced into the left kidney. The 8/10 dilator was removed. Over the superstiff wire, we passed a 10/12 ureteral access sheath into the left UPJ area. A 7.5 fr flexible ureteroscope was advanced through the access sheath and up the left ureter. We encountered the stone in the left renal pelvis. The stone did appear to be 15 mm in size is suggested by the CT scan. The stone was jagged, yellowish, and crystal-like. We did not shoot retrograde pyelogram doing the procedure. We used the laser 200 Angstrom fiber. We had the setting at 0.8 joule and a rate of 6. The stone fractured easily with the laser settings, and we were able to remove small crystals as the stone was painted. We worked from the bottom to the top, and most of the fragments seemed small enough to pass alongside a stent. After the stone had been fractured, we did have some fragments that required further treatment. I then used the 0 tip basket to retrieve a few larger fragments. They were sent for stone analysis to pathology. We did inspect all the calyxes for larger fragments and other irregularity. As the ureteral scope was removed, there were no additional stones found. We had no obvious injury to the left ureter. We removed the ureteroscope and placed an indwelling ureteral catheter. A 28 cm by 7 [place]z stent was placed over the Pierson. A coil did form in the renal pelvis and the bladder as the wire was withdrawn. The bladder was drained with the cystoscope, and the scope was removed. Mr. Lopes was awakened extubated and taken to recovery room in good condition. Pt will be informed of the need to have cystoscopy and removal the ureteral stent in the office. The instrument sponge and needle count were correct. I, Dr. Martin Alvarado, was the attending surgeon and was present for the entire operation on Mr. Lopes. Estimated Blood Loss: < 10 cc mL Intraoperative Fluids: Lactated ringers Specimens: Stone was sent to pathology for analysis Blood/Blood Products Transfused: None Complications: None Condition on Discharge from the operating room was stable Martin Alvarado MD * Pre-Procedure Instructions - Delma Mckinley RN - 12/29/2020 1:10 PM CDT We are pleased that you and your doctor have chosen [facility] for your surgery. We hope that the following information will help make your visit a pleasant one. Surgery Date: 01/01/2021 arrive at 1130 AM Before your surgery: ?? Notify your doctor of ANY change in your health such as a cold, sore throat, fever, any infection or a change in the problem for which you are having your surgery. ?? Follow any instructions given to you by your doctor or surgeon. ?? self isolate until Day of Surgery. Check with your doctor if you need to STOP taking: ?? Aspirin (ordered by your doctor) ?? Plavix One week before surgery STOP taking: ?? All herbal/vitamin supplements ?? Aspirin (not ordered by your doctor) ?? Aleve, Advil, Motrin, Ibuprofen, or other similar medications (Tylenol is okay). ?? Naproxen, Meloxicam, Arava, Celebrex ?? Ketorolac (Toradol) ?? Diclofenac (oral and topical) ?? Vitamin E ?? Fish Oil, CoQ 10, Cod Liver Oil and other similar products. 24 hours before your surgery: ?? No smoking or alcoholic drinks. ?? Hydrate yourself (water) - if no restrictions. Night before your surgery: ?? Do not eat or drink anything after midnight.. ?? Do not take JUAN/ARB inhibitor medications (if needed, check with your pharmacy). ?? Follow surgeon's instructions for anti-bacterial (CHG) shower night before and morning of surgery. ?? The night before surgery sleep on clean linen, no pets. Day of surgery: ?? NO smoking or alcoholic drinks. ?? You may have up to 16 ounces of water/Gatorade (no red or purple) until 1030 AM the morning of your surgery. ?? You may use your morning eye drops ?? Do not take JUAN/ARB inhibitor medications (if needed, check with your pharmacy). ?? ONLY take these pills with a tiny sip of water. Pre-Surgery Instructions: Medication Instructions ??? albuterol HFA (PROVENTIL HFA,VENTOLIN HFA,PROAIR HFA) Inhaler if needed ??? budesonide-formoteroL (SYMBICORT) inhaler ??? buPROPion SR (WELLBUTRIN SR) ??? fluticasone propionate (FLONASE) nasal spray if needed ??? isosorbide mononitrate ER (IMDUR) ?? Use no cologne, make-up, nail barbadian, lotions, oils or powders on your skin. ?? Powder-free deodorant is permitted. ?? Wear comfortable clothes that will not be tight in the area of your surgery. ?? Leave all valuables and jewelry (including all body piercing jewelry) at home. ?? If you use a CPAP machine, please bring it with you to wear after your surgery. ?? Please bring your photo ID, insurance cards, and medication list (including all [id number]) with you. ?? Prescriptions can be filled onsite prior to discharge. Please have your co- pay available. ?? Check in at the Registration Desk. ?? Wear a mask. ?? If you are 17 years old or younger, a parent or guardian must come with you. ?? You may have one visitor daily (visitor must be over the age of 18). After your Outpatient Surgery: ?? You must have a responsible adult to drive you home, you will not be allowed to drive or take a cab home. ?? We recommend you have someone stay with you for 24 hours after your surgery. What to bring if you are spending the night with us: ?? Bring toiletry items such as: robe, slippers, toothbrush, toothpaste, brush or comb. ?? Bring contact lens, hearing aids, glass cases and denture container if you use any of these items. ?? The hospital will provide you with a gown. Questions or concerns: ?? If you have any questions or concerns regarding your procedure, contact your surgeon as soon as possible. ?? If you have questions regarding your Pre-Admission Screen/Testing, please call at . documented in this encounter Plan of Treatment Not on file documented as of this encounter Procedures Procedure Name Priority Date/Time Associated Diagnosis Comments SURGICAL PATHOLOGY Routine 01/01/2021 2: 40 PM CDT Stone in renal pelvis FL FLUOROSCOPY < 1 HOUR IP Routine 01/01/2021 2:10 PM CDT XR ABDOMEN AP 1 VIEW IP Routine 01/01/2021 2:10 PM CDT STONE ANALYSIS Routine 01/01/2021 1:55 PM CDT PLACEMENT STENT - URETERAL 01/01/2021 1:00 PM CDT Stone in renal pelvis URETEROSCOPY 01/01/2021 1:00 PM CDT Stone in renal pelvis documented in this encounter Results * Surgical pathology (01/01/2021 2:40 PM CDT) Tissue (Calculus/calculi /stone, gross and Chemical Analysis) 01/01/2021 1:55 PM CDT Narrative PATHOLOGY CH - 01/02/2021 10:35 AM CDT EPIC results best viewed via link to PDF [facility] Department of Pathology [address] [place] [address] Note to Patients: This report may contain a detailed description of human tissue sent by a health care provider to the laboratory for pathologic evaluation. The content of this report is essential for diagnosis and may provide important critical findings. This information may be unfamiliar to patients to review without a medical professional present. It is advised that the patient review this report in the presence of a health care provider who can answer questions and explain the details. Final Report Patient Name: ??ROGERIO LOPESJulia Address: ??[address] [facility], ??[place], [place] [address] Gender: ??M : ??1935 (Age: 85) Service: ??Surgery Location: [facility] #: ??[id number] Patient Type: ??[facility] Accession # ?[id number] Taken: ??01/01/2021 Received: ??01/01/2021 Accessioned: ??01/01/2021 Reported: ??01/02/2021 Physician(s):Martin Alvarado M.D. Diagnosis: Kidney, left: ? - Calculi/calculus (gross examination only). ? - Submitted to [facility] for chemical analysis. Jefferson Brambila M.D. Report Electronically Reviewed and Signed Out By ??Jefferson Brambila M.D. ??01/02/2021 10:35:54 Specimen(s) Received: A: Left renal pelvic stones Clinical History: Stone in renal pelvis Procedure: cystoscopy, ureteroscopy with laser stone ablation, placement stent ??ureteral Gross Description: The specimen is submitted in a single container labeled Rogerio Lopes and left renal pelvic stones . ??It is multiple brown granular stones measuring 1-2 mm. The specimen is entirely submitted to [facility] for chemical analysis. When the [facility] report has been finalized, it will be available in the laboratory section of Clinical Desktop and Epic. If Clinical Desktop or Epic is not available, please call the Department of Pathology at [facility] ([phone]) to obtain a copy of the report. ??Uche Fox M.D./Aditya Heller, PJuliaAJulia REPORT IMAGES AND SCANNED DOCUMENTS, IF INCLUDED, ONLY VIEWABLE IN PDF VERSION OF REPORT The performance characteristics of some immunohistochemical stains, fluorescence in-situ hybridization tests and immunophenotyping by flow cytometry cited in this report (if any) were determined by the Surgical Pathology Department at [facility] as part of an ongoing quality assurance monitor chassis program and in compliance with federally mandated regulations drawn from the Clinical Laboratory Improvement Act of 1988 (CLIA '88). ??Some of these tests rely on the use of analyte specific reagents and are subject to specific labeling requirements by the US Food and Drug Administration. ??Such diagnostic tests may only be performed in a facility that is certified by the Department of Health and Human Services as a high complexity laboratory under CLIA '88. The FDA has determined that such clearance or approval is not necessary. ??This test is used for clinical purposes. ??It should not be regarded as investigational or for research. ??Nevertheless, federal rules concerning the medical use of analyte specific reagents require that the following disclaimer be attached to the report: This test was developed and its performance characteristics determined by the Surgical Pathology Department [facility]. ??It has not been cleared or approved by the U. S. Food and Drug Administration. Matrin Alvarado MD LAB PATHOLOGY ORDERABLE S Final Result Performing Organization Address [facility] Co de Phone Number PATHOLOGY [address] [place] [address] * FL Fluoroscopy < 1 Hour (01/01/2021 2:10 PM CDT) Narrative RAD_PACS_ - 01/01/2021 2:11 PM CDT The images from this study are not interpreted by Radiology. ??Please refer to the physician's procedure / OR operative note. Martin Alvarado MD IMG FLUOROSCOPY PROCEDU RES Final Result Performing Organization Address [facility] de Phone Number RAD_PACS_CH * XR Abdomen Ap 1 Vw (01/01/2021 2:10 PM CDT) Anatomical Region Laterality Modality Body, Abdomen N/A Radio Fluoroscop y 01/01/2021 2:38 PM CDT Impressions 01/01/2021 2:38 PM CDT Findings as described above. Electronically signed by: Edi Diane M.D. Narrative 01/01/2021 2:38 PM CDT EXAMINATION: XR ABDOMEN AP 1 VIEW HISTORY: The patient is an 85-year-old male who has had stone manipulation. TECHNIQUE: A series of 3 films were obtained with portable technique in the cystoscopy suite. FINDINGS: The reel operator confirm reveals a guidewire in the left ureter. ??There is a 1.5 cm size density overlying the left renal outline which probably represents a calculus. The final film reveals placement of a double-J left ureteral stent in good position. ??Normal gas pattern. Procedure Note Edi Diane MD - 01/01/2021 EXAMINATION: XR ABDOMEN AP 1 VIEW HISTORY: The patient is an 85-year-old male who has had stone manipulation. TECHNIQUE: A series of 3 films were obtained with portable technique in the cystoscopy suite. FINDINGS: The reel operator confirm reveals a guidewire in the left ureter. There is a 1.5 cm size density overlying the left renal outline which probably represents a calculus. The final film reveals placement of a double-J left ureteral stent in good position. Normal gas pattern. IMPRESSION: Findings as described above. Electronically signed by: Edi Diane M.D. Martin Alvarado MD IMG XR PROCEDURES Final Result * Stone analysis (01/01/2021 1:55 PM CDT) Pathologist [facility] Stone analysis Not Reported DAKOTA POWER Source, Kid Stone Left Renal DAKOTA POWER Interp, Kid stone analysis See Footnote DAKOTA POWER Comment: 60% Calcium oxalate dihydrate 30% Calcium phosphate (apatite) 10% Calcium oxalate monohydrate Test Performed by: [place] [address] Tube Building Machine Operator: Balbir Cunningham M.D. Ph.D.; CLIA# [id number] Stone 01/01/2021 1:55 PM CDT 01/05/2021 11:09 AM CDT Narrative DAKOTA POWER - 01/09/2021 11:45 PM CDT LT RENAL STONE Martin Alvarado MD LAB URINE ORDERABLES Fi nal Result DAKOTA POWER [address] [address] [place] [address] documented in this encounter Visit Diagnoses Diagnosis Stone in renal pelvis- Primary Stone in renal pelvis documented in this encounter Admitting Diagnoses Diagnosis Stone in renal pelvis documented in this encounter Administered Medications Inactive Administered Medications - up to 3 most recent administrations Medication Order MAR Action Action Date Dose Rate Site acetaminophen (TYLENOL) 500 mg tablet - ADS Override Pull Starting on Xochilt 01/01/21 at 1105, For 1 dose, Created by cabinet override acetaminophen (TYLENOL) tablet 325 mg 325 mg, oral, Once, On Xochilt 01/01/21 at 1130, For 1 dose, Pre-Op, Indications: Pre-Emptive AnalgesiaIndications:Pre-Emptive Analgesia Given 01/01/2021 11:31 AM CDT 325 mg Lactated Ringer's (LR) infusion - ADS Override Pull Starting on Xochilt 01/01/21 at 1106, For 1 dose, Created by aida override Lactated Ringer's (LR) infusion 30 mL/hr, intravenous, Continuous, Starting on Xochilt 01/01/21 at 1130, Pre-Op Restarted 01/01/2021 2:05 PM CDT Rate/Dose Verify 01/01/2021 1:00 PM CDT 50 mL/h r New Bag 01/01/2021 11:32 AM CDT 30 mL/hr 30 mL/hr documented in this encounter Discontinued Medications Medication Sig Discontinue Reason Start Date End Da te omega 0-idq-pmx-fish oil (Fish Oil) 1,000 mg (120 mg-180 mg) capsule Take 1 capsule by mouth daily Other 12/29/2020 vitamin E (AQUASOL E, D-ALPHA TOCOPHEROL, ORAL) vitamin E QD Duplicate order 04/09/2013 12/29/2020 cyanocobalamin (Vitamin B-12) 1,000 mcg/mL injection cyanocobalamin (vit B-12) 1,000 mcg/mL injection solution Inject 1 mL every month by intramuscular route. Other 12/29/2020 finasteride (PROSCAR) 5 mg tablet finasteride 5 mg tablet Take 1 tablet every day by oral route. Other 12/29/2020 metoprolol tartrate (LOPRESSOR) 25 mg immediate release tablet Take 1 tablet (25 mg total) by mouth 2 (two) times a day Other 10/01/2020 12/29/2020 documented as of this encounter Active and Recently Administered Medications Times are shown in CDT. Scheduled Medication Order 12/30/2020 12/31/2020 01/01/2021 acetaminophen (TYLENOL) tablet 325 mg (COMPLETED) 325 mg, oral, Once, On Xochilt 01/01/21 at 1130, For 1 dose, Pre-Op, Indications: Pre-Emptive Analgesia 1131 (Given - Provid er: Addie Crane RN) ceFAZolin (ANCEF) 1 gram/10 mL in sterile water (premix) 2,000 mg (COMPLETED) 2,000 mg, intravenous, at 400 mL/hr, Administer over 3 Minutes, Once, On Xochilt 01/01/21 at 1300, For 1 dose, Indications: Prophylaxis, Surgical 1315 (Given - Provid er: Vaishnavi Nolan CRNA) Continuous Medication Order 12/30/2020 12/31/2020 01/01/2021 Lactated Ringer's (LR) infusion 30 mL/hr, intravenous, Continuous, Starting on Xochilt 01/01/21 at 1130, Pre-Op 1132 (New Bag - Prov ider: Addie Crane RN)1300 (Rate/Dose Verify - Provider: Felice Gómez MD)1404 (Paused - Provider: Vaishnavi Nolan CRNA - Comment: Switch to gravity)1405 (Restarted - Provider: Vaishnavi Nolan CRNA) PRN Medication Order 12/30/2020 12/31/2020 01/01/2021 ioversoL (OPTIRAY 320) injection (CANCELED) As needed, Starting on Xochilt 01/01/21 at 1409, Intra-Op 1409 (Given - Provid er: Martin Alvarado MD) sodium chloride 0.9% irrigation (CANCELED) As needed, Starting on Xochilt 01/01/21 at 1410, Intra-Op 1410 (Given - Provid er: Martin Alvarado MD) documented in this encounter Orders Medications Ordered That Eligio ht Not Have Been Administered Count Last Ordered Date First Ordered Date acetaminophen (TYLENOL) 325 mg tablet - ADS Override Pull 1 01/01/2021 ceFAZolin (ANCEF) 1 gram/10 mL in sterile water (premix) - ADS Override Pull 1 01/01/2021 ceFAZolin (ANCEF) 1 gram/10 mL in sterile water (premix) 2,000 mg 1 01/01/2021 fentaNYL (SUBLIMAZE) 50 mcg/ mL preservative free injection - ADS Override Pull 1 01/01/2021 ioversoL (OPTIRAY 320) injection 1 01/02/20 21 sodium chloride 0.9% flush 0.5-20 mL 1 09/2020 sodium chloride 0.9% irrigation 1 1 documented in this encounter Care Teams Service Engineer Relationship Specialty Start Date End Date Angelo Mccloud MD [address] [place] [address] PCP - General 10/01/20 documented as of this encounter
--- OUTSIDE RECORDS SUMMARY | 2024-06-01 02:23 | XMS_ITS | Encounter Summary ---
Author Organization [facility] Healthcare Address [address] [place] [address] Care Team Providers Care Ground Source Heat Pump Technician Name Role Phone Angelo Mccloud MD Primary Care Provider [phone] Reason for Visit * Reason Comments Shortness of Breath Fever Encounter Details Date Type Department Care Team (Late st Contact Info) Description 01/17/2021 11:28 PM CDT - 01/17/2021 11:41 PM CDT Emergency 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 Gender Identity Not on file Sexual Orientation Not on file documented as of this encounter Last Filed Vital Signs Vital Sign Reading Time Taken Comments Blood Pressure 90/58 01/17/2021 8:49 PM CDT Pulse 101 01/17/2021 8:49 PM CDT Temperature 38.6 ??C (101.5 ??F) 01/17/2021 8:49 PM C DT Respiratory Rate 18 01/17/2021 8:49 PM CDT Oxygen Saturation 94% 01/17/2021 8:49 PM CDT Inhaled Oxygen Concentration - - Weight 83.9 kg (185 lb) 01/17/2021 8:49 PM CDT Height 180.3 cm (5' 11 ) 01/17/2021 8:49 PM CDT Body Mass Index 25.8 01/17/2021 8:49 PM CDT documented in this encounter Discharge Diagnoses Diagnosis Shortness of breath - SHORTNESS OF BREATH Fever, unspecified - FEVER, UNSPECIFIED Procedure and treatment not carried out due to patient leaving prior to being seen by health care provider - PROCEDURE AND TREATMENT NOT CARRIED OUT DUE TO PATIENT LEAVING PRIOR TO BEING SEEN BY HEALTH CARE DE documented in this encounter Medications at Time [...] day 08/31/2012 documented as of this encounter Discharge Disposition Disposition Code Departure Means Destination Left without being seen documented in this encounter ED Notes * John Landeros RN - 01/17/2021 8:41 PM CDT Pt's friend shortness of breath and fever beginning today. History of COPD documented in this encounter Plan of Treatment Not on file documented as of this encounter Procedures Procedure Name Priority Date/Time Associated Diagnosis Comments ECG 12-LEAD STAT 01/17/2021 8:45 PM CDT documented in this encounter Results * ECG 12 lead (01/17/2021 8:45 PM CDT) 01/17/2021 8:45 PM CDT Narrative [facility] - 01/18/2021 10:21 AM CDT Vent Rate: 99 bpm RR Interval: 602 msec DE Interval: 185 msec QRS Duration: 173 msec QT Interval: 385 msec QTC Interval: 441 msec P-R-T [place]: 67 - 98 - 32 degrees SINUS RHYTHM POSSIBLE LEFT ATRIAL ENLARGEMENT RIGHT BUNDLE BRANCH BLOCK ST DEPRESSION, CONSIDER SUBENDOCARDIAL INJURY ABNORMAL ECG PVC NO LONGER SEEN Electronically Signed By: Shaquille Murphy MD Anikte Sue MD ECG ORDERABLES Final Result Performing Organization Address City/State/[facility] Co de Phone Number [facility] documented in this encounter Visit Diagnoses Not on filedocumented in this encounter Care Teams Ground Source Heat Pump Technician Relationship Specialty Start Date End Date Angelo Mccloud MD [address] [address] PCP - General 10/01/20 documented as of this encounter
--- OUTSIDE RECORDS SUMMARY | 2024-06-01 02:23 | XMS_ITS | Encounter Summary ---
Author Organization [facility] Healthcare Address [address] [place] [address] Care Team Providers Care Director Center Name Role Phone Angelo Mccloud MD Primary Care Provider [phone] Encounter Details Date Type Department Care Team (Late st Contact Info) Description 01/01/2021 1:30 PM CDT - 01/01/2021 3:[address] [facility] Operating Room [address] [place] [address] Martin Alvarado MD [id number] [place] [address] [place] [address] CYSTOSCOPY, URETEROSCOPY WITH LASER STONE ABLATION Surgery Details Date/Time Status Location OR Service Patient Class Case Cl ass Case Type Trauma Case? 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 Do NOT exceed 4,000mg Tylenol (aka acetaminophen) in 24 hours, [place] contains Tylenol Flomax - For stent pain [...] through Care Everywhere. * Hydrocodone/Acetaminophen (By mouth) (Rwandan) * Phenazopyridine (By mouth) (Rwandan) * Tamsulosin (By mouth) (Rwandan) * General Anesthesia (Discharge Care) (Rwandan) * Cystoscopy (Discharge Care) (Rwandan) * Ureteroscopy (Discharge Care) (Rwandan) documented in this encounter Medications at Time [...] for gross hematuria when he presented to [facility] with chest pain and shortness of [...] Role: * Martin Alvarado MD - Primary Junior Legal Secretary: Melissa Gautam MD DATE OF SURGERY : [...] extraction: Using holmium laser Stent size: 7 Peruvian by 28 cm Indications: ??Cb??is an 85 y.o.??WM who was consulted for gross hematuria when he presented to [facility] with??chest pain and shortness of breath. [...] The 10 fr catheter was advanced over the8 fr into the distal ureter, and a [...] ureteral catheter. A 28 cm by 7 Peruvian stent was placed over the [place]. A [...] that you and your doctor have chosen [facility] for your surgery. We hope that the [...] (IMDUR) ?? Use no cologne, make-up, nail yakut, lotions, oils or powders on your skin. [...] insurance cards, and medication list (including all khvg-eyn-[id number]) with you. ?? Prescriptions can be filled [...] PATHOLOGY CH - 01/02/2021 10:35 AM CDT [facility] results best viewed via link to PDF [facility] Department of Pathology [address] [place] [address] Note to Patients: This report may contain [...] Final Report Patient Name: ??ROGERIO LOPESJulia Address: ??[address] [place] [address], ??[place], [place] [address] Gender: ??M : ??1935 (Age: 85) Service: ??Surgery Location: [facility] #: ??[id number] Patient Type: ??[facility] Accession # ?[id number] Taken: ??01/01/2021 Received: ??01/01/2021 Accessioned: ??01/01/2021 Reported: ??01/02/2021 Physician(s):Martin Alvarado M.D. Diagnosis: Kidney, left: ? - Calculi/calculus (gross examination only). ? - Submitted to [facility] for chemical analysis. Jefferson Brambila [...] mm. The specimen is entirely submitted to [facility] for chemical analysis. When the [facility] report has been finalized, it will be available in the laboratory section of Clinical Desktop and Epic. If Clinical Desktop or Epic is not available, please call the Department of Pathology at [facility] ([phone]) to obtain a copy of the report. ??Uche Fox M.D./Annabelle Horan REPORT IMAGES AND SCANNED DOCUMENTS, IF INCLUDED, ONLY VIEWABLE IN PDF VERSION OF REPORT The performance characteristics of some immunohistochemical stains, fluorescence in-situ hybridization tests and immunophenotyping by flow cytometry cited in this report (if any) were determined by the Surgical Pathology Department at [facility] as part of an ongoing quality control lab tech program and in compliance with federally mandated [...] characteristics determined by the Surgical Pathology Department [facility]. ??It has not been cleared or approved by the U. S. Food and Drug Administration. us Martin Alvarado MD LAB PATHOLOGY ORDERABLE S Final Result PATHOLOGY [address] [place] [address] * [place] Fluoroscopy < 1 Hour (01/01/2021 2:10 PM CDT) Narrative [facility] - 01/01/2021 2:11 PM CDT The images from this study are not interpreted by Radiology. ??Please refer to the physician's procedure / OR operative note. Martin Alvarado MD IMG FLUOROSCOPY PROCEDU RES Final Result RAD_PACS_CH * XR Abdomen Ap 1 Vw [...] technique in the cystoscopy suite. FINDINGS: The automation/controls manager confirm reveals a guidewire in the left [...] technique in the cystoscopy suite. FINDINGS: The automation/controls manager confirm reveals a guidewire in the left [...] * Stone analysis (01/01/2021 1:55 PM CDT) Stone analysis Not Reported DAKOTA POWER Source, Kid Stone Left Renal DAKOTA POWER Interp, Kid stone analysis See Footnote DAKOTA POWER Comment: 60% Calcium oxalate dihydrate 30% Calcium phosphate (apatite) 10% Calcium oxalate monohydrate Test Performed by: [facility] [address] [place] [address] Warehouse Director: Balbir Cunningham M.D. Ph.D.; CLIA# [id number] Stone 01/01/2021 1:55 PM CDT 01/05/2021 11:09 AM CDT Narrative [facility]AKOTA POWER - 01/09/2021 11:45 PM CDT LT RENAL STONE Martin Alvarado MD LAB URINE ORDERABLES Fi nal Result Performing Organization Address City/State/[facility] Co de Phone Number DAKOTA POWER [address] [address] [place] [address] documented in this encounter Visit Diagnoses Diagnosis Stone in renal pelvis- Primary Stone in renal pelvis Stone in renal pelvis documented in this encounter Admitting Diagnoses Diagnosis Stone in renal pelvis documented in this encounter Administered Medications Inactive Administered Medications - up to 3 most recent administrations Medication Order MAR Action Action Date Dose Rate Site acetaminophen (TYLENOL) 500 mg tablet - ADS Override Pull Starting on Xochilt 01/01/21 at 1105, For 1 dose, Created by aida override acetaminophen (TYLENOL) tablet 325 mg 325 mg, oral, Once, On Xochilt 01/01/21 at 1130, For 1 dose, Pre-Op, Indications: Pre-Emptive AnalgesiaIndications:Pre-E mptive Analgesia Given 01/01/2021 11:31 AM CDT 325 mg ioversoL (OPTIRAY 320) injection As needed, Starting on Xochilt 01/01/21 at 1409, Intra-Op Given 01/01/2021 2:09 PM CDT 10 mL Surgical Site Lactated Ringer's (LR) infusion - ADS Override Pull Starting on Xochilt 01/01/21 at 1106, For 1 dose, Created by aida tillman Lactated Ringer's (LR) infusion 30 mL/hr, intravenous, Continuous, Starting on Xochilt 01/01/21 at 1130, Pre-Op Restarted 01/01/2021 2:05 PM CDT Rate/Dose Verify 01/01/2021 1:00 PM CDT 50 mL/h r New Bag 01/01/2021 11:32 AM CDT 30 mL/hr 30 mL/hr sodium chloride 0.9% irrigation As needed, Starting on Xochilt 01/01/21 at 1410, Intra-Op Given 01/01/2021 2:10 PM CDT 3,000 mL Surgical Site documented in this encounter Discontinued Medications Medication Sig Discontinue Reason Start Date End Da te omega 8-qya-ajy-fish oil (Fish Oil) 1,000 mg (120 mg-180 [...] injection - ADS Override Pull 1 01/01/2021 sodium chloride 0.9% flush 0.5-20 mL 1 09/2020 documented in this encounter Care Teams Director Center Relationship Specialty Start Date End Date Angelo Mccloud MD [address] [place] [address] PCP - General 10/01/20 documented as of this encounter
--- OUTSIDE RECORDS SUMMARY | 2024-06-01 02:23 | XMS_ITS | Encounter Summary ---
Author Organization [facility] Healthcare Address [address] [place] [address] Care Team Providers Care Coroner Forensic Technician Name Role Phone Angelo Mccloud MD Primary Care Provider [phone] Reason for Referral * MRI/CAT/PET Scan (Routine) - Closed Specialty Diagnoses / Procedures Referred By Saray salas Referred To Contact Radiology Diagnoses Gross hematuria Procedures CT Urogram W 3D Lizbeth Nava, IT OPERATIONS SPECIALIST [address] [facility] [place] [address] Phone: tel: fax: [address] [phone] Referral ID Status Reason Start Date Expiration Date Visits Re quested Visits Authorized [id number] Closed 10/01/2020 10/31/2021 1 1 Reason for Visit * MRI/CAT/PET Scan (Routine) - Closed Specialty Diagnoses / Procedures Referred By Zulemaac maritza Referred To Contact Radiology Diagnoses Gross hematuria Procedures CT Urogram W 3D Lizbeth Nava, IT OPERATIONS SPECIALIST [id number] [facility] [place] [id number] Phone: tel: fax: [address] [phone] Referral ID Status Reason Start Date Expiration Date Visits Re quested Visits Authorized [id number] Closed 10/01/2020 10/31/2021 1 1 Encounter Details Date Type Department Care Team (Latest Contact Info) Description 10/09/2020 1:46 PM CDT - 10/09/2020 11:59 PM CDT Hospital Encounter 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 Gender Identity Not on file Sexual Orientation Not on file documented as of this encounter Medications at Time of Discharge [...] capsule (300 mg total) by mouth nightly isosorbide mononitrate ER (IMDUR) 30 mg 24 hr tablet Take 1 tablet (30 mg total) by mouth daily latanoprost (XALATAN) 0.005 % ophthalmic solution Administer 1 drop into the right eye nightly multivitamin capsule Take 1 capsule by mouth daily 08/31/2012 omeprazole (PriLOSEC) 20 mg capsule Take 1 capsule (20 mg total) by mouth daily vitamin E (vitamin E) 400 unit capsule Take 1 capsule (400 Units total) by mouth 2 (two) times a day 08/31/2012 metoprolol tartrate (LOPRESSOR) 25 mg immediate release tablet Take 1 tablet (25 mg total) by mouth 2 (two) times a day 60 tablet 11 10/01/2020 1 omega 0-csd-rfy-fish oil (Fish Oil) 1,000 mg (120 mg-180 mg) capsule Take 1 capsule by mouth daily 1 vitamin E (AQUASOL E, D-ALPHA TOCOPHEROL, ORAL) vitamin E QD 04/09/2013 1 documented as of this encounter Discharge Disposition Disposition Code Departure Means Destination Discharge to home or self care documented in this encounter Plan of Treatment Not on file documented as of this encounter Procedures Procedure Name Priority Date/Time Associated Diagnosis Comments CT UROGRAM W 3D Schedule Routine, Read Routine (OP Routine) 10/09/2020 2:53 PM CDT Gross hematuria documented in this encounter Results * CT Urogram W [...] been communicated to ordering provider via the [employer] Critical Result tracking system. ??Status of follow up communication is is recorded in [employer]. Electronically signed by: Beka Steward M.D. Narrative 10/09/2020 3:05 PM CDT EXAMINATION: CT UROGRAM W 3D dated 10/09/2020 2:30 PM HISTORY: 84-year-old man gross hematuria TECHNIQUE: CT urography with pre and post contrasted images utilizing 95 mL Optiray 320. ??Digital subtraction with 2-D and 3-D reformations. FINDINGS: No priors. ??Home Appraiser radiograph demonstrates hyperinflated lungs. Penileimplant. ??Degeneration thoracolumbar [...] 2-D and 3-D reformations. FINDINGS: No priors. Home Appraiser radiograph demonstrates hyperinflated lungs. Penileimplant. Degeneration thoracolumbar [...] been communicated to ordering provider via the [employer] Critical Result tracking system. Status of follow up communication is is recorded in [employer]. Electronically signed by: Beka Steward M.D. Lizbeth Nava NP IMG CT PROCEDURES Final Resul t documented in this encounter Visit Diagnoses Diagnosis Gross hematuria documented in this encounter Administered Medications Inactive Administered Medications - up to 3 most recent administrations Medication Order MAR Action Action Date Dose Rate Site ioversoL (OPTIRAY 320) intravenous syringe 100 mL 100 mL, intravenous, Once in imaging, contrast, Starting on Xochilt 10/09/20 at 1425, For 1 dose Given 10/09/2020 2:29 PM CDT 95 mL documented in this encounter Orders Medications Ordered That Eligio ht Not Have Been Administered Count Last Ordered Date First Ordered Date ioversoL (OPTIRAY 320) intra venous syringe 100 mL 1 10/09/2020 documented in this encounter Care Teams Coroner Forensic Technician Relationship Specialty Start Date End Date Angelo Mccloud MD [address] [id number] PCP - General 10/01/20 documented as of this encounter
--- OUTSIDE RECORDS SUMMARY | 2024-06-01 02:23 | XMS_ITS | Encounter Summary ---
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 FINDINGS: The manager of exhibitions and collections confirm reveals a guidewire in the left [...] technique in the cystoscopy suite. FINDINGS: The manager of exhibitions and collections confirm reveals a guidewire in the left ureter. There is a 1.5 cm size density overlying the left renal outline which probably represents a calculus. The final film reveals placement of a double-J left ureteral stent in good position. Normal gas pattern. IMPRESSION: Findings as described above. Electronically signed by: Edi Diane M.D. us Martin Alvarado MD IMG XR PROCEDURES Final Result documented in this encounter Visit Diagnoses Not on filedocumented in this encounter Care Teams Pelts Skinner Relationship Specialty Start Date End Date Angelo Mccloud MD [address] [address] PCP - General 10/01/20 documented as of this encounter
--- OUTSIDE RECORDS SUMMARY | 2024-06-01 02:23 | XMS_ITS | Encounter Summary ---
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 Gender Identity Not on file Sexual Orientation [...] day 60 tablet 11 10/01/2020 1 omega 5-xim-hzg-fish oil (Fish Oil) 1,000 mg (120 mg-180 mg) capsule Take 1 capsule by mouth daily 1 vitamin E (AQUASOL E, D-ALPHA TOCOPHEROL, ORAL) vitamin E QD 04/09/2013 documented as of this encounter Discharge Disposition Disposition Code Departure Means Destination Discharge to home or self care documented in this encounter Plan of Treatment Not on file documented as of this encounter Procedures Procedure Name Priority Date/Time Associated Diagnosis Comments XR CHEST 1 VIEW IP Routine 09/29/2020 7:19 PM CDT documented in this encounter Results * XR Chest 1 Vw Portable (09/29/2020 7:19 PM CDT) Anatomical Region Laterality Modality Body, Chest N/A Computed Radiogr aphy 09/30/2020 8:13 AM CDT Impressions 09/30/2020 8:13 AM CDT COPD with cardiomegaly. ??There is a scarring. ??Pleural plaques left side suspected. Electronically signed by: Beka Steward M.D. Narrative 09/30/2020 8:13 AM CDT EXAMINATION: XR CHEST 1 VIEW DATE: 09/29/2020 6:55 PM HISTORY: 84-year-old man with chest pain FINDINGS:No priors. ??Mild cardiomegaly. ??COPD. ??Bibasilar scarring. No failure fluid or infiltrates. ??Pleural densities are seen in the left mid and lower lung field. Procedure Note Beka Steward MD - 09/30/2020 EXAMINATION: XR CHEST 1 VIEW DATE: 09/29/2020 6:55 PM HISTORY: 84-year-old man with chest pain FINDINGS:No priors. Mild cardiomegaly. COPD. Bibasilar scarring. No failure fluid or infiltrates. Pleural densities are seen in the left mid and lower lung field. IMPRESSION: COPD with cardiomegaly. There is a scarring. Pleural plaques left side suspected. Electronically signed by: Beka Steward M.D. Yaw Thacker MD IMG XR PROCEDURES Final Result documented in this encounter Visit Diagnoses Not on filedocumented in this encounter Care Teams Marriage And Family Therapist Relationship Specialty Start Date End Date Angelo Mccloud MD [address] [address] PCP - General 09/29/20 09/29/20 documented as of this encounter
--- OUTSIDE RECORDS SUMMARY | 2024-06-01 02:23 | XMS_ITS | Encounter Summary ---
Author Organization [facility] Healthcare Address [address] [place] [address] Care Team Providers Care Marble Cutter Name Role Phone Angelo Mccloud MD Primary Care Provider [phone] Encounter Details Date Type Department Care Team (Late st Contact Info) Description 09/29/2020 8:30 AM CDT - 09/29/2020 10:30 AM CDT Surgery [facility] Cardiac Catheterization Lab [address] [place] [address] Yaw Thacker MD [address] [place] [address] PCI ED ATHERECTOMY WITH STENT(S) - MAJOR CORONARY [id number] - [id number] Surgery Details Date/Time Status Location OR Service Patient Class Case Class Case Type Trauma Case? 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 Gender Identity Not on file Sexual Orientation Not on file documented as of this encounter Last Filed Vital Signs Vital Sign Reading Time Taken Comments Blood Pressure 154/74 09/29/2020 10:30 AM CDT Pulse 65 09/29/2020 10:30 AM CDT Temperature 36.7 ??C (98 ??F) 09/29/2020 6:52 AM CDT Respiratory Rate 20 09/29/2020 6:52 AM CDT Oxygen Saturation 94% 09/29/2020 10:30 AM CDT Inhaled Oxygen Concentration - - Weight 83.7 kg (184 lb 8 oz) 09/29/2020 6:52 AM CDT Height 180.3 cm (5' 11 ) 09/29/2020 6:52 AM CDT Body Mass Index 24.81 09/29/2020 6:52 AM CDT documented in this encounter Discharge Instructions * Discharge Instructions* Nicole Shepherd RN - 09/29/2020 8:35 AM CDT Moderate Sedation WHAT YOU NEED TO KNOW: Moderate sedation, or conscious sedation, is medicine used during procedures to help you feel relaxed and calm. You will be awake and able to follow directions without anxiety or pain. You will remember little to none of the procedure. You may feel tired, weak, or unsteady on your feet after you get sedation. You may also have trouble concentrating or short-term memory loss. These symptoms should go away in 24 hours or less. DISCHARGE INSTRUCTIONS: Call 911 or have someone else call for any of the following: ?? You have sudden trouble breathing. ?? You cannot be woken. Seek care immediately if: ?? You have a severe headache or dizziness. ?? Your heart is beating faster than usual. Contact your healthcare provider if: ?? You have a fever over 100*F ?? You have nausea or are vomiting for more than 8 hours after the procedure. ?? Your skin is itchy, swollen, or you have a rash. ?? You have questions or concerns about your condition or care. Self-care: ?? Have someone stay with you for 24 hours. This person can drive you to errands and help you do things around the house. This person can also watch for problems. ?? Rest and do quiet activities. Stand up slowly to prevent dizziness and falls. Take short walks around the house with another person. ?? Do not drive or use dangerous machines or tools for 48 hours. You may injure yourself or others.Examples include a lawnmower, saw, or drill. ?? Do not make important decisions for 24 hours. For example, do not sign important papers or invest money. ?? Drink liquids as directed. Liquids help flush the sedation medicine out of your body. Ask how much liquid to drink each day and which liquids are best for you. ?? Eat small, frequent meals to prevent nausea and vomiting. Start with clear liquids such as juiceor broth. If you do not vomit after clear liquids, you can eat your usual foods. ?? Do not drink alcohol or take medicines that make you drowsy. This includes medicines that help you sleep and anxiety medicines. Ask your healthcare provider if it is safe for you to take pain medicine. Follow up with your healthcare provider as directed: Write down your questions so you remember to ask them during your visits. documented in this encounter Medications at Time [...] 2 (two) times a day 60 tablet 10/01/2020 1 omega 6-zpg-rbl-fish oil (Fish Oil) 1,000 mg (120 mg-180 mg) capsule Take 1 capsule by mouth daily 1 vitamin E (AQUASOL E, D-ALPHA TOCOPHEROL, ORAL) vitamin E QD 04/09/2013 1 documented as of this encounter Ordered Prescriptions Prescription Sig Dispense Quantity Refills Last Filled Start Date End Date clopidogreL (PLAVIX) 75 mg tabletIndications: myocardial infarction prevention,cardiov ascular disease Take 1 tablet (75 mg total) by mouth daily 30 tablet 11 10/02/2020 metoprolol tartrate (LOPRESSOR) 25 mg immediate release tablet Take 1 tablet (25 mg total) by mouth 2 (two) times a day 60 tablet 11 10/01/2020 12/29/2020 documented in this encounter Discharge Disposition Disposition Code Departure Means Destination Discharge to home or self care documented in this encounter Progress Notes * Jude Mcfadden MD - 10/01/2020 8:38 AM CDT [facility] - Cardiology [facility] Progress Note Admit Date: 09/29/2020 6:18 AM @HDAYS@ PCP: Irwin Padilla MD Patient seen and examined Chart , telemtry reviewed Symptoms Patient denies dyspnea, palpitations, sweating or syncope. Atypical chest pain present Data Vitals: 10/01/20 0300 10/01/20 0400 10/01/20 0500 10/01/20 0804 BP: 129/81 141/87 BP Location: Right arm Left arm Patient Position: Lying Pulse: 83 88 86 Resp: 18 19 Temp: 37.1 ??C (98.8 ??F) 36.4 ??C (97.5 ??F) TempSrc: Oral Oral SpO2: 91% 96% Weight: 80.7 kg (177 lb 14.4 oz) Height: Intake/Output Summary (Last 24 hours) at 10/01/2020 0838 Last data filed at 10/01/2020 0615 Gross per 24 hour Intake 240 ml Output 800 ml Net -560 ml Lab Results Component Value Date WBC 7.2 09/29/2020 HGB 14.1 09/29/2020 HCT 43.5 09/29/2020 Lab Results Component Value Date SODIUM 141 10/01/2020 SODIUM 141 09/30/2020 SODIUM 142 09/29/2020 POTASSIUM 4.0 10/01/2020 POTASSIUM 3.9 09/30/2020 POTASSIUM 4.1 09/29/2020 CHLORIDE 103 10/01/2020 CHLORIDE 105 09/30/2020 CHLORIDE 107 09/29/2020 CO2 27 10/01/2020 CO2 25 09/30/2020 CO2 28 09/29/2020 CREATININE 1.11 10/01/2020 CREATININE 1.18 09/30/2020 CREATININE 1.02 09/29/2020 GLUCOSE 91 10/01/2020 GLUCOSE 95 09/30/2020 GLUCOSE 94 09/29/2020 CALCIUM 8.8 10/01/2020 CALCIUM 9.0 09/30/2020 CALCIUM 8.8 09/29/2020 No results found for: PTT No results found for: PT No results found for: INR No results found for: BNP No components found for: TROPONIN No results found for: CHOL, TRIG, HDL, LDLCALC No results found for: ALBUMIN, ALKPHOS, ALT, AST No components found for: MAGMGDL No results found for: TSH No results found for: T3FREE No results found for: R1FQMYQ Pain Assessment: Sleeping Meds MEDICATIONS FOR CURRENT ENCOUNTER: SCHEDULED MEDICATIONS: Scheduled Medications Medication Dose Route Frequency ??? aspirin enteric coated tablet 325 mg 325 mg oral Daily ??? atorvastatin (LIPITOR) tablet 20 mg 20 mg oral Nightly ??? clopidogreL (PLAVIX) tablet 75 mg 75 mg oral Daily ??? heparin 5,000 unit/mL injection 5,000 Units 5,000 Units subcutaneous Q12H JAMISON ??? isosorbide mononitrate ER (IMDUR) extended release tablet 30 mg 30 mg oral Daily ??? pantoprazole DR (PROTONIX) extended release tablet 40 mg 40 mg oral Daily ?? CONTINUOUS MEDICATIONS: Continuous Medications Medication Dose Last Rate ? PRN MEDICATIONS: PRN Medications Medication Dose Route Frequency Last Admin ??? acetaminophen (TYLENOL) tablet 500 mg 500 mg oral Q6H PRN 500 mg at 09/30/20 1120 ??? ALPRAZolam (XANAX) tablet 0.25 mg 0.25 mg oral Q6H PRN 0.25 mg at 09/30/20 2108 ??? ioversoL (OPTIRAY 320) intravenous syringe 100 mL 100 mL intravenous Once in imaging ??? nitroglycerin (NITROSTAT) sublingual tablet 0.4 mg 0.4 mg sublingual Q5 Min PRN 0.4 mg at 09/30/20 0340 No Known Allergies Review of Systems: All systems were reviewed. Pertinent positives are mentioned above. Exam General appearance: alert, cooperative, no distress Neck: No JVD. No carotid Bruit Chest: Decreased air entry bilaterally,No added sounds Cardiovascular: regular rate, rhythm, normal S1 and S2, without rub, gallops or murmur Abdomen: soft without mass, non-tender, with normal bowel sounds Extremities: no clubbing, cyanosis or edema. Peripheral pulse palpable Assessment /Plan CAD -s/p cath 09/08/20 that revealed calcified lesion to LAD 75%, that IVUS probe was unable to passed at that time -s/p csi atherectomy with ptca with a 3.5 x 26mm vivienne. IVUS pre and post for stent size and apposition Mild atypical chest pain today Troponins show flat trend. Add lopressor May be discharged ?? Hematuria -urology consulted. Plans for CT urogram and cysto ?? Hx tobacco abuse ?? Hx basal cell cancer ?? Hyperternsion: well controlled Hyperlipidemia: on statins COPD: On bronchodilators Jude Mcfadden MD * Lizbeth Nava, FIELD COUNSEL - 10/01/2020 8:15 AM CDT Urology Progress Note Subjective Rogerio Vivar is a 84 y.o. male that we are seeing for gross hematuria with BPH. Urine culture and cytology results are pending. He was unable to have the CTU yesterday due to chest pain. He denies chest pain today and feeling much better. Explained that he would like to have the CTU today prior to discharge. Urine culture was negative. Urine cytology results are pending. Reports tea colored urine. Lab Results Component Value Date CREATININE 1.11 10/01/2020 and CBC: Lab Results Component Value Date WBC 7.2 09/29/2020 HGB 14.1 09/29/2020 Lab/Radiology/Diagnostic Review: Most Recent: Vitals: 10/01/20 0804 BP: 141/87 Pulse: 86 Resp: 19 Temp: 36.4 ??C (97.5 ??F) SpO2: 96% Review of Systems: All other systems except the HPI are negative. Objective Physical exam: Constitutional: Appears well-developed and well-nourished. Head: Normocephalic and atraumatic. Eyes: Conjunctivae and EOM are normal. Pulmonary/Chest: Effort normal with no respiratory distress noted Musculoskeletal: Normal range of motion. Neurological: Alert and oriented to person, place, and time. Skin: Skin is warm and dry. Psychiatric: Normal mood and affect. Behavior is normal. Extremities: warm and well perfused Assessment /Plan Principal Problem: CAD (coronary artery disease) Active Problems: SOB (shortness of breath) 84 y.o. male with gross hematuria and BPH. Continue taking the tamsulosin once daily for BPH. Recommend to have a CTU and cystoscopy to evaluate etiology for hematuria. Awaiting results of the urine cytology. He is scheduled to have a cystoscopy with Dr. Alvarado, on October 14, 2020 at 10:40 am, to complete the evaluation for hematuria. Advised to call if his symptoms become worse. No urological interventions are planned during this admission. Thank you for allowing urology to be a part of the care of your patient. Please call if you have any questions. Lizbeth Nava NP Urology Division [facility] Office [phone] 10/01/2020 8:15 AM Cosigned by Martin Alvarado MD at 10/20/2020 4:27 AM CDT * Rosy Amato RN - 09/30/2020 1:40 PM CDT CM Initial Assessment Interview Note Information Obtained From: Patient (09/30/20 134) Admission Source: ED Impression: Admitted OPB s/p PCI with stent & RotoRooter. Plan Includes: Urology consulted for hematuria. Primary Source of Transportation: [employer] Insurance Coverage: [facility] Medicare Prescription Coverage: [facility] Medicare Pharmacy: [place], [place] Primary Care Provider: Irwin Padilla MD Prior to Admission: Primary Caregiver: Self Support System: Spouse/Significant Other Support system contact info (name, phone, availablity): Nina Camara, significant other/friend [phone] Home Care Services: No Durable Medical Equipment: Cane (single prong) Living Arrangements: Alone(Nina often stays with pt.) Type of Residence: Private residence Steps in home? : Yes, Inside home Number of steps inside:: 14 steps (09/30/20 1340) Potential discharge needs include: None Dialysis: No Behavioral Health Services: Behavioral Health Services: No (09/30/20 1340) Patient expects to be Discharged to: Private residence, (09/30/20 1340) Additional Information: CM met with pt at bedside to complete assessment for initial discharge planning. Demographics verified per face sheet. Pt lives in a 2 story home alone but his significant other/friend/designated healthcare network consultant Nina Camara stays with him often. Pt reports has a Living Will for health care but does not have a copy. Pt gives consent to obtain copy from [facility] -- follow-up needed. Pt independent with ADLs, uses cane to ambulate, & Nina provides transportation. Pt states can afford prescription meds. Goal is to return home with no new needs upon discharge. CM will continue to follow for discharge planning and assist as needed. Patient's Identified Problem/Goal Problem: Ensure acute medical needs are met and that patient has a safe discharge plan. Goal: Secure a discharge plan that patient/family are agreeable with and ensure patient has continuum of care. Case management will follow for discharge planning and send referrals as needed. Goals include: To assure continuity of care, To maximize coping skills, To assure patient is in a safe environment and To assure access to community resources. Plan includes: 1. Collaboration with patient, MD, direct care nurse, Telecommunications Switch Technician, Nurse Coordinator and other members of the health care team to assure needed interventions completed. 2. Return patient to optimal level of self-care post discharge. 3. Physical Sciences Professor will follow for Discharge Planning - interventions as needed 4. Anticipated level of care at discharge 5. Planned Discharge Disposition GEORGIE Barillas-RN [facility] [phone] * Jose Carlos Larry MD - 09/30/2020 8:57 AM CDT The patient was seen examined by nurse practitioner and me Dr. Larry in person. Pertinent information was reviewed. Patient has intermittent occurrence of right bundle branch block. Which is not pathological finding in this case. Patient had RotoRooter of LAD with stenting. It is expected to have of a non chest discomfort after RotoRooter/chest Pain placement. Patient does not appear to be inany acute distress. Will monitor him for next 24 hours. Will repeat EKG as needed. * Lizbeth Nava NP - 09/30/2020 8:46 AM CDT Urology Progress Note Subjective Rogerio Vivar is a 84 y.o. male that we are seeing with gross hematuria and BPH. He is urinating without complaints of weak stream, dysuria or flank pain. Continues to complain of hematuria. Taking tamsulosin once a day. Lab Results Component Value Date CREATININE 1.18 09/30/2020 and CBC: Lab Results Component Value Date WBC 7.2 09/29/2020 HGB 14.1 09/29/2020 Lab/Radiology/Diagnostic Review: Most Recent: Vitals: 09/30/20 0840 BP: 137/76 Pulse: 83 Resp: 18 Temp: 36.3 ??C (97.4 ??F) SpO2: 93% Review of Systems: All other systems except the HPI are negative. Objective Physical exam: Constitutional: Appears well-developed and well-nourished. Head: Normocephalic and atraumatic. Eyes: Conjunctivae and EOM are normal. Pulmonary/Chest: Effort normal with no respiratory distress noted Musculoskeletal: Normal range of motion. Neurological: Alert and oriented to person, place, and time. Psychiatric: Normal mood and affect. Behavior is normal. Extremities: warm and well perfused Assessment /Plan Principal Problem: CAD (coronary artery disease) Active Problems: SOB (shortness of breath) 84 y.o. male with gross hematuria and BPH. - Recommend to have a CTurogram - Recommend to have a urine cytology and culture - Will follow up after review of the CT, culture and cytology. Recommend to have a cystoscopy to evaluate the bladder for etiology of hematuria. - Continue tamsulosin once daily Thank you for allowing urology to be a part of the care of your patient. Please call if you have any questions. Lizbeth Nava NP Urology Division [facility] Office [phone] 09/30/2020 8:46 AM Cosigned by Martin Alvarado MD at 10/20/2020 4:26 AM CDT * Pippa Castillo NP - 09/30/2020 8:30 AM CDT Daily Progress SUBJECTIVE: Mr. Vivar is sitting up in bed, NAD Reports that starting 2 hrs after his cath yesterday he has been experiencing intermittent CP, described as substernal, 11/06, that increases with inspiration/ movement and is reproducible. NTG was given over night with no improvement. EKGs were obtained overnight and this am. Reviewed with Dr. Thacker and Dr. Larry. Will check stat trop now. Will restart home statin and imdur. Continue asa, campos vix. This am: chest discomfort improved, but continues to be reproducible, and increases with inspiration and movement. Denies SOB, dizziness, palpitations OBJECTIVE: Vitals: 09/29/20 2353 09/30/20 0000 09/30/20 0400 09/30/20 0409 BP: 133/85 105/66 BP Location: Left arm Left arm Patient Position: Lying Sitting Pulse: 93 88 86 86 Resp: 16 18 Temp: 36.4 ??C (97.5 ??F) 36.8 ??C (98.2 ??F) TempSrc: Oral Oral SpO2: 96% 92% Weight: Height: Intake/Output Summary (Last 24 hours) at 09/30/2020 0830 Last data filed at 09/30/2020 0757 Gross per 24 hour Intake 440 ml Output 1500 ml Net -1060 ml Scheduled Medications Medication Dose Route Frequency ??? aspirin enteric coated tablet 325 mg 325 mg oral Daily ??? clopidogreL (PLAVIX) tablet 75 mg 75 mg oral Daily ??? famotidine (PEPCID) tablet 20 mg 20 mg oral BID ??? heparin 5,000 unit/mL injection 5,000 Units 5,000 Units subcutaneous Q12H JAMISON LABS: Recent Labs Lab Units 09/29/20 1736 WBC K/cumm 7.2 HEMOGLOBIN g/dL 14.1 HEMATOCRIT % 43.5 PLATELETS K/cumm 188 Recent Labs Lab Units 09/30/20 0523 SODIUM mmol/L 141 POTASSIUM PLASMA mmol/L 3.9 CHLORIDE mmol/L 105 CO2 mmol/L 25 ANIONGAP mmol/L 11 GLUCOSE mg/dL 95 BUN SERUM mg/dL 20 CREATININE mg/dL 1.18 CALCIUM mg/dL 9.0 No results found for: BNP No results found for: TROPONINI Exam General: in no apparent distress and well developed and well nourished Neuro: Alert and oriented x 3, moves all extremities well HEENT: normocephalic, atraumatic, thyroid not enlarged. Neck: There are no carotid bruits. I do not appreciate JVD. Lungs: symmetric, unlabored, clear to auscultation bilaterally Heart: S1,S2, regular rate & rhythm, no murmurs, rubs, or gallops Abdomen: soft, non-tender, non-distended, bowel sounds present Extremities: R groin stable without palpable hematoma or bleeding. No BLE edema, palpable peripheral pulses BL Neurologic: No focal deficits ASSESSMENT/PLAN: CAD -s/p cath 09/08/20 that revealed calcified lesion to LAD 75%, that IVUS probe was unable to passed at that time -s/p csi atherectomy with ptca with a 3.5 x 26mm vivienne. IVUS pre and post for stent size and apposition -pt reports since 2 hrs post procedure he been experiencing intermittent CP, described as substernal, 6/10, that increases with inspiration/ movement and is reproducible. NTG was given over night with no improvement. EKGs were obtained overnight and this am. Reviewed with Dr. Thacker and Dr. Larry- R BBB. Will check stat trop now. Will restart home statin and imdur. Continue asa, plavix. -This am: chest discomfort improved, but continues to be reproducible, and increases with inspiration and movement. -further review of previous EKGs, R BBB was present in 2019, and 2018. -will await trop. No plans to redo cath at this time. Hematuria -urology consulted. Plans for CT urogram and cysto Hx tobacco abuse Hx basal cell cancer Pippa Castillo NP [facility] 09/30/2020 8:30 AM documented in this encounter H&P Notes * Yaw Thacker MD - 09/29/2020 8:33 AM CDT I have reviewed the H&P, examined the patient, and endorse the findings as written. Plan of Care : Based on the above findings, I consider Rogerio Vivar to be an acceptable risk for : Procedure(s): PCI ED ATHERECTOMY WITH STENT(S) - MAJOR CORONARY [id number] - [id number] Source Note - Yaw Thacker MD - 09/25/2020 12:54 PM CDT documented in this encounter Procedure Notes * Yaw Thacker MD - 09/29/2020 10:04 AM CDT Procedures KEDAR Via rfa 7f CLS 3.5 csi atherectomy with ptca with a 3.5 x 26mm vivienne IVUS pre and post for stent size and apposition [id number] * Yaw Thacker MD - 09/29/2020 12:00 AM CDT An 84-year-old male who was admitted essentially to do an intervention to [facility]. The patient has been having significant shortness of breath. Once we did the diagnostic catheterization, I found that the iFR was significant in the LAD and I was not able to pass the IVUS and so I decided that we would need to do some form of atherectomy of the calcified lesions. I explained this to the patient in detail and why we need to do it at [facility]. He was agreeable. He understood the potential risks and benefits and wished to proceed. Patient prepped and draped in usual sterile fashion. 1% lidocaine used to infiltrate the region of the right femoral. Micropuncture kit used to access the right common femoral artery and placed a 7 sheath. We passed a CLS 3.5 guide, 7- Gambian engaged, gave weight-based heparin. Initially tried to pass a Viper wire but it would not pass, so then I passed a pediatrician along with a Whisper. We removed the Whisper and passed down the Viper wire and then removed the pediatrician. Over this, we used a Diamondback 360 1.25 Coronary Classic and did multiple runs. Once these multiple runs were done, I removed, this took a picture, then I used a 2.5 balloon, a 2.5 x 20 Emerge. We ballooned. Then I passed anIVUS and the vessel appeared to be 3.5 to 4. So I decided to place a 3.5 x 26 Resolute [place] inflated to 16 atmospheres for 15 seconds. We then removed this and put the IVUS back in and when I ran theIVUS, it appeared that there was good stent apposition and at that point 2 final pictures and stopped and I closed the right common femoral with a 6 ProGlide. Impression Successful atherectomy, stenting of the LAD with IVUS for stent apposition and vessel size. The patient will remain on aspirin, Plavix, statin, and will stay overnight and hopefully in the morning we will be able to discharge the patient home. The whole procedure lasted 65 minutes. We gave a total of 3 of Versed and 75 of fentanyl. Patient was observed throughout. Job ID/VF Job ID: [id number] documented in this encounter Consult Notes * Lizbeth Nava, FIELD COUNSEL - 09/29/2020 4:09 PM CDTAssociated Order(s): IP CONSULT TO UROLOGY Urology Consult Reason for Consult: hematuria Requesting Physician: Dr. Thacker Consulting Physician: Dr. Jenny Echavarria Cb is a 84 y.o. male who we have been asked to see in consultation for gross hematuria. Patient with a history of chest pain and shortness of breath presented to for a cardiac procedure.He had an atherectomy, stenting of the LAD. He was administered anticoagulation. He began to experience gross hematuria post procedure. Describes his urine as appearance of grape juice. He denies a pe rsonal or family history of malignancy. Has a history of an enlarged prostate and kidney stones but unable to remember the details. He is bothered with a weak urinary stream. Denies dysuria, frequency, urgency, nocturia, flank pain, fever or chills. He is a non smoker. Past Medical History: Diagnosis Date ??? Arthritis ??? BPH (benign prostatic hyperplasia) ??? CAD (coronary artery disease) ??? Depression ??? GERD (gastroesophageal reflux disease) ??? GI bleed ??? History of blood transfusion ??? HL (hearing loss) right ear ??? HLD (hyperlipidemia) ??? Lung disease COPD ??? Sleep apnea Past Surgical History: Procedure Laterality Date ??? CARDIAC STENT PLACEMENT 3 stents ??? CAROTID ARTERY ANGIOPLASTY Right ??? CATARACT EXTRACTION, BILATERAL Bilateral ??? CHOLECYSTECTOMY ??? PENILE PROSTHESIS IMPLANT X 2 Social History Tobacco Use ??? Smoking status: Former Smoker ??? Smokeless tobacco: Never Used ??? Tobacco comment: 20 years ago Substance Use Topics ??? Alcohol use: Not on file Family History Adopted: Yes Medications Prior to Admission Medication Sig Dispense Refill Last Dose ??? albuterol HFA (PROVENTIL HFA,VENTOLIN HFA,PROAIR HFA) 90 mcg/actuation inhaler Inhale 2 puffs every 6 (six) hours as needed for wheezing ??? ascorbic acid, vitamin C, 500 mg capsule Take 500 mg by mouth daily 09/28/2020 at Unknown time ??? ASPIRIN ORAL Take 81 mg by mouth daily 09/29/2020 at Unknown time ??? atorvastatin (LIPITOR) 20 mg tablet Take 20 mg by mouth nightly 09/28/2020 at 2100 ??? brimonidine-timoloL (COMBIGAN) 0.2-0.5 % ophthalmic solution Administer 1 drop into the right eye 2 (two) times a day 09/29/2020 at Unknown time ??? budesonide-formoteroL (SYMBICORT) 160-4.5 mcg/actuation inhaler Inhale 2 puffs 2 (two) times a day Rinse mouth with water after use. Do not swallow. 09/29/2020 at Unknown time ??? buPROPion SR (WELLBUTRIN SR) 150 mg 12 hr tablet Take 150 mg by mouth 2 (two) times a day 09/29/2020 at Unknown time ??? cholecalciferol, vitamin D3, (VITAMIN D3 ORAL) Take 1 capsule by mouth daily 09/28/2020 at Unknown time ??? doxazosin (CARDURA) 4 mg tablet Take 4 mg by mouth nightly 09/28/2020 at Unknown time ??? fluticasone propionate (FLONASE) 50 mcg/actuation nasal spray 2 sprays 2 (two) times a day 09/29/2020 at Unknown time ??? gabapentin (NEURONTIN) 300 mg capsule Take 300 mg by mouth nightly 09/28/2020 at Unknown time ??? isosorbide mononitrate ER (IMDUR) 30 mg 24 hr tablet Take 30 mg by mouth daily 09/29/2020 at Unknown time ??? latanoprost (XALATAN) 0.005 % ophthalmic solution Administer 1 drop into the right eye nightly 09/28/2020 at Unknown time ??? multivitamin capsule Take 1 capsule by mouth daily 09/29/2020 at Unknown time ??? omeprazole (PriLOSEC) 20 mg capsule Take 20 mg by mouth daily 09/28/2020 at Unknown time ??? vitamin E (vitamin E) 400 unit capsule Take 1 capsule by mouth 2 (two) times a day 09/29/2020 at Unknown time ??? omega 3-jpd-ftr-fish oil (Fish Oil) 1,000 mg (120 mg-180 mg) capsule Take 1 capsule by mouth daily No Known Allergies Review of Systems: All other systems except the HPI are negative. Vitals: Most Recent : Vitals: 09/29/20 1558 BP: 140/73 Pulse: 74 Resp: 18 Temp: 37 ??C (98.6 ??F) SpO2: 93% Objective Physical Exam: General: does not appear in acute distress; no pain present Head: normocephalic/atraumatic Eyes: no discharge noted; (R,L) extraocular movements are intact; visual field normal Ears: (R,L) hearing grossly normal Nose/Mouth/Throat: mucous membranes moist Neck: neck inspection is normal; neck ROM normal Respiratory: has normal respiratory effort Extremities: (R,L) pink and warm Musculoskeletal: normal range of motion present Neurology: patient is alert and oriented times three Mood: has normal mood and affect Assessment Principal Problem: CAD (coronary artery disease) Active Problems: SOB (shortness of breath) Rogerio Vivar is a 84 y.o. male with gross hematuria and BPH. I discussed the significance of gross blood in the urine. I discussed the differential diagnosis ofgross hematuria. Potential etiologies include bladder/ureteral/renal stones, bladder/ureteral/renaltumors, urethral stricture, foreign bodies, and medical-renal disease. I discussed comprehensive hematuria evaluation including cystoscopy and CT Urogram (with and without IV contrast.) I recommeded flexible cystoscopy to evaluate for a bladder source of hematuria. I discussed the risks of bleeding, infection, injury to the urinary tract. I discussed the potential need for Gallegos catheter placement with bladder irrigation to relieve/prevent clot formation and subsequent bladder outlet obstruction. Plan: 1. Voided urine for cytology. 2. Schedule CT Urogram for full evaluation of upper urinary tract 3. Schedule flexible cystoscopy after CT Urogram 4. Continue Cardura once daily for BPH Thank you for allowing urology to be a part of the care of your patient. Please call if you have any questions. SANDY Omalley [facility] [employer] Department of Surgery, Division of Urology [phone] 09/29/2020 4:09 PM Cosigned by Martin Alvarado MD at 10/02/2020 6:28 AM CDT documented in this encounter Nursing Notes * Maranda Snyder RN - 09/29/2020 3:32 PM CDT Patient had hematuria post cardiac cath, dr. thacker made aware, consult urology. See provider notification for time and details. Chest pain post procedure, ekg done and read by dr. Kedar dr. States pain is not cardiac related.Pt states this pain is worse with inspiration, palpation. maalox and breathing treatment given. Seemar. 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 Will come see patient. 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 Phone rings continuously unanswered. Pt informed still need of copy of advance directive. Pt being discharged home today. Pt to follow-up outpatient with Dr. Alvarado for cystoscopy on 10/14/20 at 10:40 am on AVS. No further CM follow-up needed. GEORGIE Barillas-RN [facility] [phone]' * Plan of Care - Mayra Hernandez RN - 10/01/2020 1:51 PM CDT Goals: Clinical Goals for the Shift: comfort, safety Summary * Plan of Care - Robb Castillo RN - 10/01/2020 5:17 AM CDT Goals: Clinical Goals for the Shift: stable VS, comfort, and safety Summary: Pt remains vitally stable and free from falls. Pt rests comfortably in bed and denies any pain. Problem: Health Behavior: Goal: Understanding of discharge needs will improve Outcome: Progressing Problem: Safety: Goal: Will remain free from falls Outcome: Progressing Goal: Will remain free from injury from falls Outcome: Progressing Problem: Activity: Goal: Risk for activity intolerance will decrease Outcome: Progressing Problem: Infection Risk: Goal: Will remain free from infection Outcome: Progressing Problem: Sensory: Goal: Pain level will decrease Outcome: Progressing * Plan of Care - Elizabeth Cummings RN - 09/30/2020 5:32 PM CDT Problem: Health Behavior: Goal: Understanding of discharge needs will improve Outcome: Progressing Problem: Lack of Knowledge: Goal: Ability to state ways to decrease the risk of falls will improve Outcome: Progressing Problem: Safety: Goal: Will remain free from falls Outcome: Progressing Goal: Will remain free from injury from falls Outcome: Progressing Goal: Will remain free from falls and injury in home environment Outcome: Progressing Problem: Activity: Goal: Risk for activity intolerance will decrease Outcome: Progressing Problem: Lack of Knowledge: Goal: Knowledge of diagnostic tests will improve Outcome: Progressing Goal: Knowledge of disease or condition will improve Outcome: Progressing Goal: Knowledge of safety precautions will improve Outcome: Progressing Goal: Knowledge of the prescribed therapeutic regimen will improve Outcome: Progressing Problem: Health Behavior: Goal: Ability to state signs and symptoms to report to health care provider will improve Outcome: Progressing Problem: Physical Regulation: Goal: Ability to maintain clinical measurements within normal limits will improve Outcome: Progressing Problem: Infection Risk: Goal: Will remain free from infection Outcome: Progressing Problem: Safety: Goal: Ability to remain free from injury will improve Outcome: Progressing Goal: Will remain free from falls Outcome: Progressing Problem: Self-Care: Goal: Ability to participate in self-care as condition permits will improve Outcome: Progressing Problem: Sensory: Goal: Pain level will decrease Outcome: Progressing Goal: Ability to develop a pain control plan will improve Outcome: Progressing Problem: Skin Integrity: Goal: Risk for impaired skin integrity will decrease Outcome: Progressing Problem: Tissue Perfusion: Goal: Risk factors for ineffective tissue perfusion will decrease Outcome: Progressing Problem: Lack of Knowledge: Goal: Knowledge of safety precautions will improve Outcome: Progressing Problem: Fluid Volume: Goal: Will show no signs and symptoms of excessive bleeding Outcome: Progressing Problem: Cardiac: Goal: Hemodynamic stability will improve Outcome: Progressing Goal: Will show no evidence of cardiac arrhythmias Outcome: Progressing Goal: Will show no signs and symptoms of excessive bleeding Outcome: Progressing Goals: Clinical Goals for the Shift: stable VS, comfort, and safety * Plan of Care - Robb Castillo RN - 09/30/2020 4:44 AM CDT Outcome: Progressing Goals: Clinical Goals for the Shift: stable VS, comfort, and safety Summary: Problem: Safety: Goal: Will remain free from falls Outcome: Progressing Goal: Will remain free from injury from falls Outcome: Progressing Problem: Activity: Goal: Risk for activity intolerance will decrease Outcome: Progressing Problem: Infection Risk: Goal: Will remain free from infection Outcome: Progressing Problem: Cardiac: Goal: Hemodynamic stability will improve Outcome: Progressing Goal: Will show no evidence of cardiac arrhythmias Outcome: Progressing Goal: Will show no signs and symptoms of excessive bleeding Outcome: Progressing * Plan of Care - Pippa Fuentes RN - 09/29/2020 5:44 PM CDT Goals: reduce falls, comply with bed rest Summary: Problem: Health Behavior: Goal: Understanding of discharge needs will improve Outcome: Progressing Problem: Lack of Knowledge: Goal: Ability to state ways to decrease the risk of falls will improve Outcome: Progressing Problem: Safety: Goal: Will remain free from falls Outcome: Progressing * Pre-Sedation Documentation - Yaw Thacker MD - 09/29/2020 8:32 AM CDT Sedation Plan ASA 3 - Severe systemic disease Mallampati class: III. Risks, benefits, and alternatives discussed with patient. * Pre-Procedure Instructions - Leyla Nunn RN - 09/26/2020 3:49 PM CDT We are pleased that you and your doctor have chosen [facility] for your surgery. We hope that the following information will help make your visit a pleasant one. Surgery Date: 09/29/2020 Arrival at 6:30 Before your surgery: ?? Notify your doctor of ANY change in your health such as a cold, sore throat, fever, any infection or a change in the problem for which you are having your surgery. ?? Follow any instructions given to you by your doctor or surgeon. One week before surgery STOP taking: ?? All herbal supplements ?? Aleve, Advil, Motrin, Ibuprofen, or other similar medications (Tylenol is okay). 24 hours before your surgery: ?? No smoking or alcoholic drinks. Night before your surgery: ?? Do not eat anything after midnight. ?? Follow surgeon's instructions for anti-bacterial shower night before and morning of surgery. Day of surgery: ?? You may drink up to 16 oz of water before 5:30. ?? Only take the medication your surgeon has told you to take. ?? Use no make-up, nail lao, lotions, oils or powders on your skin. ?? Wear comfortable clothes that will not be tight in the area of your surgery. ?? Leave all valuables and jewelry (including all body piercing jewelry) at home. ?? If you use a CPAP machine, please bring it with you to wear after your surgery. ?? Please bring your a photo ID and insurance cards with you. ?? Check in at the Registration Desk. ?? You may have one visitor daily After your Outpatient Surgery: ?? You must [...] If you have questions regarding your Pre-Admission Testing, please call us. We can be reached atthe number posted at the top of the page. documented in this encounter Plan of Treatment Pending Results Name Type Priority Associated Diagnoses Date /Time Cardiac Catheterization Cardiac Cath Routine CAD (coronary artery disease) SOB (shortness of breath) 09/29/2020 9:46 AM CDT Scheduled Orders Name Type Priority Associated Diagnoses Orde r Schedule Cytology Pathology and Cytology Routine On ce for 1 Occurrences starting 09/29/2020 until 09/29/2020 documented as of this encounter Procedures Procedure Name Priority Date/Time Associated Diagnosis Comments EGFR Routine 10/01/2020 6:01 AM CDT BASIC METABOLIC PANEL Routine 10/01/2020 6:01 AM CDT TROPONIN T HIGH-SENSITIVITY 6-HOUR Timed 09/30/2020 8:01 PM CDT TROPONIN T HIGH-SENSITIVITY 4-HR Timed 09/30/2020 6:27 PM CDT TROPONIN T HIGH-SENSITIVITY 2-HOUR Timed 09/30/2020 3:46 PM CDT TROPONIN T HIGH-SENSITIVITY SERIES (BASELINE, 2HR, 4HR, 6HR) Routine 09/30/2020 2:10 PM CDT TROPONIN T HIGH-SENSITIVITY STAT 09/30/2020 9:33 AM CDT EGFR Routine 09/30/2020 5:23 AM CDT BASIC METABOLIC PANEL Routine 09/30/2020 5:23 AM CDT ECG 12-LEAD STAT 09/30/2020 3:56 AM CDT CAD (coronary artery disease) XR CHEST 1 VIEW IP Routine 09/29/2020 7:19 PM CDT ECG 12-LEAD STAT 09/29/2020 5:47 PM CDT CAD (coronary artery disease) EGFR STAT 09/29/2020 5:36 PM CDT DIFFERENTIAL AUTO STAT 09/29/2020 5:3 6 PM CDT CBC WITH AUTO DIFFERENTIAL STAT 09/29/2020 5:36 PM CDT BASIC METABOLIC PANEL STAT 09/29/2020 5:36 PM CDT URINE CULTURE Routine 09/29/2020 5:20 PM CDT ECG 12-LEAD STAT 09/29/2020 1:51 PM CDT CORONARY OCT, 1ST VESSEL Routine 09/29/2020 9:46 AM CDT CAD (coronary artery disease) SOB (shortness of breath) ATHERECTOMY/ED MAJOR CORONARY Routine 09/29/2020 9:46 AM CDT CAD (coronary artery disease) SOB (shortness of breath) POCT ACTIVATED CLOTTING TIME Routine 09/29/2020 9:15 AM CDT ECG 12-LEAD Routine 09/29/2020 7:09 AM CDT documented in this encounter Results * eGFR (10/01/2020 6:01 AM CDT) [facility] eGFR 61 mL/min/1.7 3 m2 [facility] Comment: Interpretive Data Reference Interval Normal ?>/= 90 mL/min/1.73m2 Mildly decreased* ? 60 - 89 mL/min/1.73m2 Mildly to moderately decreased ?45 - 59 mL/min/1.73m2 Moderately to severely decreased ??30 - 44 mL/min/1.73m2 Severely decreased ?15 - 29 mL/min/1.73m2 Kidney Failure ?< 15 ??mL/min/1.73m2 *Relative to young adult level Estimated glomerular filtration rate is determined by the CKD-EPI equation recommended by the National Kidney Foundation (KDIGO 2012 Clinical Practice Guideline for the Evaluation and Management of Chronic Kidney Disease. Kidney Intnl Suppl May 2012;3:1). The CKD-EPI equation should not be used for patients with unstable renal function and has not been validated in children and those over 70. Current interpretive data was last reviewed 2020 Blood specimen (specimen) 10/01/2020 6:01 AM CDT 10/01/2020 7:11 AM CDT Yaw Thacker MD LAB BLOOD ORDERABLES Final Resul t [facility] [id number] [place] [address] * Basic metabolic panel (10/01/2020 6:01 AM CDT) Sodium 141 135 - 145 mmol/L [facility] Potassium, pl 4.0 3.3 - 4.9 mmol/L [facility] Chloride 103 97 - 110 mmol/L [facility] CO2 27 22 - 32 mmol/L [facility] Anion gap 11 2 - 15 mmol/L [facility] BUN 22 8 - 25 mg/dL [facility] Creatinine 1.11 0.80 - 1.30 mg/dL [facility] Glucose 91 70 - 199 mg/dL [facility] Comment: Interpretive Data Fasting glucose >/= 126 mg/dl is diagnostic for diabetes. ?? Fasting is defined as no caloric intake for at least 8 hours. Fasting glucose between 100 mg/dl to 125 mg/dl is diagnostic of prediabetes. In a patient with classic symptoms of hyperglycemia or hyperglycemic crisis, a random glucose >/= 200 mg/dl is diagnostic for diabetes. In the absence of unequivocal hyperglycemia, results should be confirmed by repeat testing. The classification and Diagnosis of Diabetes Diabetes Care 2017;40 (Suppl. 1):S11. Current interpretive data was last revised 2017. Calcium 8.8 8.5 - 10.3 mg/dL [facility] Blood specimen (specimen) 10/01/2020 6:01 AM CDT 10/01/2020 7:11 AM CDT Yaw Thacker MD LAB BLOOD ORDERABLES Final Resul t [facility] [address] [place] [address] * (ABNORMAL) Troponin T high-sensitivity 6-hour (09/30/2020 8:01 PM CDT) Trop T hs 98(H) <=22 ng/L [facility] Comment: Interpretive Data For further hscTnT resources including the diagnostic algorithm and an aid in interpretation, copy and paste this link: [email or web address] Current Interpretive Data last revised 2020. Trop T hs delta 0 ng/L [facility] Trop T hs interp Insignificant [facility] Blood specimen (specimen) 09/30/2020 8:01 PM CDT 09/30/2020 8:06 PM CDT Pippa Castillo NP LAB BLOOD ORDERABLES Elva l Result Performing Organization Address [facility] Co de Phone Number [facility] [phone] [employer] [place] [address] * (ABNORMAL) Troponin T high-sensitivity 4-hour (09/30/2020 6:27 PM CDT) Pathologist [facility] Trop T hs 98(H) <=22 ng/L [facility] Comment: Slight hemolysis may result in decreased troponin measurement. Consider recollection. Interpretive Data For further hscTnT resources including the diagnostic algorithm and an aid in interpretation, copy and paste this link: [email or web address] Current Interpretive Data last revised 2020. Trop T hs delta 0 ng/L [facility] Trop T hs interp Insignificant [facility] Blood specimen (specimen) 09/30/2020 6:27 PM CDT 09/30/2020 6:31 PM CDT Pippa Castillo NP LAB BLOOD ORDERABLES Elva l Result Performing Organization Address [facility] Co de Phone Number [facility] [id number] [facility] [place] [address] * (ABNORMAL) Troponin T high-sensitivity 2-hour (09/30/2020 3:46 PM CDT) Trop T hs 96(H) <=22 ng/L [facility] Comment: Interpretive Data For further hscTnT resources including the diagnostic algorithm and an aid in interpretation, copy and paste this link: [email or web address]/[email or web address] Current Interpretive Data last revised 2020. Trop T hs delta -2 ng/L [facility] Trop T hs interp Insignificant [facility] Blood specimen (specimen) 09/30/2020 3:46 PM CDT 09/30/2020 3:48 PM CDT Pippa Castillo NP LAB BLOOD ORDERABLES Elva keyona Result Performing Organization Address [facility] de Phone Number [facility] [id number] [place] [address] * (ABNORMAL) Troponin T high-sensitivity series (baseline, 2hr, 4hr, 6hr) (09/30/2020 2:10 PM CDT) Pathologist [facility] Trop T hs 98(H) <=22 ng/L [facility] Comment: Interpretive Data For further hscTnT resources including the diagnostic algorithm and an aid in interpretation, copy and paste this link: [email or web address]/[email or web address] Current Interpretive Data last revised 2020. Blood specimen (specimen) 09/30/2020 2:10 PM CDT 09/30/2020 2:13 PM CDT Pippa Castillo NP LAB BLOOD ORDERABLES Elva l Result Performing Organization Address [facility] Co de Phone Number [facility] [phone] [facility] [place] [address] * (ABNORMAL) Troponin T high-sensitivity (09/30/2020 9:33 AM CDT) Trop T hs 106(H) <=22 ng/L [facility] Comment: Interpretive Data For further hscTnT resources including the diagnostic algorithm and an aid in interpretation, copy and paste this link: [email or web address]/[email or web address] Current Interpretive Data last revised 2020. Blood specimen (specimen) 09/30/2020 9:33 AM CDT 09/30/2020 9:42 AM CDT us Pippa Castillo FIELD COUNSEL LAB BLOOD ORDERABLES Elva rand Result [facility] [address] [place] [address] * eGFR (09/30/2020 5:23 AM CDT) eGFR 56 mL/min/1.7 3 m2 [facility] Comment: Interpretive Data Reference Interval Normal ?>/= 90 mL/min/1.73m2 Mildly decreased* ? 60 - 89 mL/min/1.73m2 Mildly to moderately decreased ?45 - 59 mL/min/1.73m2 Moderately to severely decreased ??30 - 44 mL/min/1.73m2 Severely decreased ?15 - 29 mL/min/1.73m2 Kidney Failure ?< 15 ??mL/min/1.73m2 *Relative to young adult level Estimated glomerular filtration rate is determined by the CKD-EPI equation recommended by the National Kidney Foundation (KDIGO 2012 Clinical Practice Guideline for the Evaluation and Management of Chronic Kidney Disease. Kidney Intnl Suppl May 2012;3:1). The CKD-EPI equation should not be used for patients with unstable renal function and has not been validated in children and those over 70. Current interpretive data was last reviewed 2020 Blood specimen (specimen) 09/30/2020 5:23 AM CDT 09/30/2020 7:05 AM CDT Yaw Thacker MD LAB BLOOD ORDERABLES Final Resul t [facility] [address] [place] [address] * Basic metabolic panel (09/30/2020 5:23 AM CDT) Sodium 141 135 - 145 mmol/L [facility] Potassium, pl 3.9 3.3 - 4.9 mmol/L [facility] Chloride 105 97 - 110 mmol/L [facility] CO2 25 22 - 32 mmol/L [facility] Anion gap 11 2 - 15 mmol/L [facility] BUN 20 8 - 25 mg/dL [facility] Creatinine 1.18 0.80 - 1.30 mg/dL [facility] Glucose 95 70 - 199 mg/dL [facility] Comment: Interpretive Data Fasting glucose >/= 126 mg/dl is diagnostic for diabetes. ?? Fasting is defined as no caloric intake for at least 8 hours. Fasting glucose between 100 mg/dl to 125 mg/dl is diagnostic of prediabetes. In a patient with classic symptoms of hyperglycemia or hyperglycemic crisis, a random glucose >/= 200 mg/dl is diagnostic for diabetes. In the absence of unequivocal hyperglycemia, results should be confirmed by repeat testing. The classification and Diagnosis of Diabetes Diabetes Care 2017;40 (Suppl. 1):S11. Current interpretive data was last revised 2017. Calcium 9.0 8.5 - 10.3 mg/dL [facility] Blood specimen (specimen) 09/30/2020 5:23 AM CDT 09/30/2020 7:02 AM CDT Yaw Thacker MD LAB BLOOD ORDERABLES Final Resul t Performing Organization Address City/[facility]/ZIP Co de Phone Number [facility] [phone] [place] [address] * ECG 12 lead (09/30/2020 3:56 AM CDT) 09/30/2020 3:56 AM CDT Narrative [facility] - 09/30/2020 10:28 AM CDT Vent Rate: 87 bpm RR Interval: 684 msec OK Interval: 193 msec QRS Duration: 166 msec QT Interval: 373 msec QTC Interval: 418 msec P-R-T [place]: 67 - 70 - 29 degrees SINUS RHYTHM WITH OCCASIONAL VENTRICULAR PREMATURE COMPLEXES RIGHT BUNDLE BRANCH BLOCK ??[120+ ms QRS DURATION, UPRIGHT V1, 40+ ms S IN I/aVL/V4/V5/V6] ABNORMAL ECG PVC NEW Electronically Signed By: Shaquille Murphy MD us Yaw Thacker MD ECG ORDERABLES Final Result [facility] * XR Chest 1 Vw Portable (09/29/2020 [...] Thacker MD IMG XR PROCEDURES Final Result * ECG 12 lead (09/29/2020 5:47 PM CDT) 09/29/2020 5:47 PM CDT Narrative [facility] - 09/30/2020 1:30 PM CDT Vent Rate: 79 bpm RR Interval: 751 msec OK Interval: 179 msec QRS Duration: 181 msec QT Interval: 396 msec QTC Interval: 431 msec P-R-T [place]: -73 - 62 - 12 degrees SINUS RHYTHM RIGHT BUNDLE BRANCH BLOCK ??[120+ ms QRS DURATION, UPRIGHT V1, 40+ ms S IN I/aVL/V4/V5/V6] ST DEPRESSION, CONSIDER SUBENDOCARDIAL INJURY ??[0.1+ mV ST DEPRESSION] ABNORMAL ECG UNCHANGED Electronically Signed By: Shaquille Murphy MD Yaw Thacker MD ECG ORDERABLES Final Result [facility] * eGFR (09/29/2020 5:36 PM CDT) eGFR 67 mL/min/1.7 3 m2 [facility] Comment: Interpretive Data Reference Interval Normal ?>/= 90 mL/min/1.73m2 Mildly decreased* ? 60 - 89 mL/min/1.73m2 Mildly to moderately decreased ?45 - 59 mL/min/1.73m2 Moderately to severely decreased ??30 - 44 mL/min/1.73m2 Severely decreased ?15 - 29 mL/min/1.73m2 Kidney Failure ?< 15 ??mL/min/1.73m2 *Relative to young adult level Estimated glomerular filtration rate is determined by the CKD-EPI equation recommended by the National Kidney Foundation (KDIGO 2012 Clinical Practice Guideline for the Evaluation and Management of Chronic Kidney Disease. Kidney Intnl Suppl May 2012;3:1). The CKD-EPI equation should not be used for patients with unstable renal function and has not been validated in children and those over 70. Current interpretive data was last reviewed 2020 Blood specimen (specimen) 09/29/2020 5:36 PM CDT 09/29/2020 5:41 PM CDT us Martin Alvarado MD LAB BLOOD ORDERABLES Fi nal Result [facility] [address] [place] [address] * Differential, auto (09/29/2020 5:36 PM CDT) Neutrophil abs 5.1 1.7 - 6.5 K/cumm [facility] Imm gran abs 0.0 0.0 - 0.1 K/cumm [facility] Lymphocyte abs 1.3 0.8 - 3.3 K/cumm [facility] Monocyte abs 0.7 0.2 - 0.8 K/cumm [facility] Eosinophil abs 0.1 0.0 - 0.5 K/cumm [facility] Basophil abs 0.0 0.0 - 0.1 K/cumm [facility] Neutrophil pct 70.6 % [facility] Comment: Interpretive Data Percent cell count reference ranges are not reported, since discordance with absolute values may lead to misinterpretation of CBC data. Current Interpretive Data was last revised on 2017. Imm gran pct 0.4 % [facility] Comment: Interpretive Data Percent cell count reference ranges are not reported, since discordance with absolute values may lead to misinterpretation of CBC data. Current Interpretive Data was last revised on 2017. Lymphocyte pct 17.8 % [facility] Comment: Interpretive Data Percent cell count reference ranges are not reported, since discordance with absolute values may lead to misinterpretation of CBC data. Current Interpretive Data was last revised on 2017. Monocyte pct 9.7 % [facility] Comment: Interpretive Data Percent cell count reference ranges are not reported, since discordance with absolute values may lead to misinterpretation of CBC data. Current Interpretive Data was last revised on 2017. Eosinophil pct 1.1 % [facility] Comment: Interpretive Data Percent cell count reference ranges are not reported, since discordance with absolute values may lead to misinterpretation of CBC data. Current Interpretive Data was last revised on 2017. Basophil pct 0.4 % [facility] Comment: Interpretive Data Percent cell count reference ranges are not reported, since discordance with absolute values may lead to misinterpretation of CBC data. Current Interpretive Data was last revised on 2017. Blood specimen (specimen) 09/29/2020 5:36 PM CDT 09/29/2020 5:40 PM CDT us Martin Alvarado MD LAB BLOOD ORDERABLES Fi nal Result [facility] [address] [place] [address] * (ABNORMAL) CBC with auto differential (09/29/2020 5:36 PM CDT) WBC 7.2 3.8 - 9.9 K/cumm [facility] Hgb 14.1 13.0 - 17.5 g/dL [facility] Hct 43.5 38.9 - 50.3 % [facility] Plt 188 150 - 400 K/cumm [facility] MPV 9.9 9.1 - 12.3 fL [facility] RBC 4.26(L) 4.30 - 5.80 M/cumm [facility] MCV 102.1(H) 81.3 - 96.4 fL [facility] MCH 33.1 27.1 - 33.3 pg [facility] MCHC 32.4 32.3 - 35.7 g/dL [facility] RDW CV 13.1 11.1 - 14.9 % [facility] RDW SD 49.1(H) 35.7 - 48.1 fL [facility] NRBC abs 0.00 0.00 - 0.01 K/cumm [facility] Blood specimen (specimen) 09/29/2020 5:36 PM CDT 09/29/2020 5:40 PM CDT Martin Alvarado MD LAB BLOOD ORDERABLES Fi nal Result [facility] [address] [place] [address] * Basic metabolic panel (09/29/2020 5:36 PM CDT) Sodium 142 135 - 145 mmol/L [facility] Potassium, pl 4.1 3.3 - 4.9 mmol/L [facility] Chloride 107 97 - 110 mmol/L [facility] CO2 28 22 - 32 mmol/L [facility] Anion gap 7 2 - 15 mmol/L [facility] BUN 22 8 - 25 mg/dL [facility] Creatinine 1.02 0.80 - 1.30 mg/dL [facility] Glucose 94 70 - 199 mg/dL [facility] Comment: Interpretive Data Fasting glucose >/= 126 mg/dl is diagnostic for diabetes. ?? Fasting is defined as no caloric intake for at least 8 hours. Fasting glucose between 100 mg/dl to 125 mg/dl is diagnostic of prediabetes. In a patient with classic symptoms of hyperglycemia or hyperglycemic crisis, a random glucose >/= 200 mg/dl is diagnostic for diabetes. In the absence of unequivocal hyperglycemia, results should be confirmed by repeat testing. The classification and Diagnosis of Diabetes Diabetes Care 2017;40 (Suppl. 1):S11. Current interpretive data was last revised 2017. Calcium 8.8 8.5 - 10.3 mg/dL [facility] Blood specimen (specimen) 09/29/2020 5:36 PM CDT 09/29/2020 5:40 PM CDT Martin Alvarado MD LAB BLOOD ORDERABLES Fi nal Result [facility] [address] [place] [address] * Urine culture Urine, clean voided (09/29/2020 5:20 PM CDT) Report Final Report: Less than 100,000 colonies/mL (clinically insignificant growth based on current clinical standards) [facility] Comment:Testing performed by : [facility], [address] [place]., [address] Organism (CLINICALLY INSIGNIFICANT GROWTH [facility] Urine, clean voided 09/29/2020 5:20 PM CDT 09/29/2020 7:39 PM CDT Narrative [facility] - 10/01/2020 9:28 AM CDT Indications for Culture:->Urology patient Testing performed by [facility] Microbiology Laboratory ([phone]) Lizbeth Nava NP LAB MICROBIOLOGY - GENERAL OR DERABLES Final Result Performing Organization Address [facility] Co de Phone Number [facility] [address] [place] [address] * ECG 12 lead (09/29/2020 1:51 PM CDT) 09/29/2020 1:51 PM CDT Narrative [facility] - 09/29/2020 2:07 PM CDT Vent Rate: 69 bpm RR Interval: 867 msec OK Interval: 239 msec QRS Duration: 185 msec QT Interval: 417 msec QTC Interval: 436 msec P-R-T [place]: 74 - 66 - 77 degrees SINUS RHYTHM WITH FIRST DEGREE AV BLOCK RIGHT BUNDLE BRANCH BLOCK ??[120+ ms QRS DURATION, UPRIGHT V1, 40+ ms S IN I/aVL/V4/V5/V6] ABNORMAL ECG No significant change compared to prior ECG Electronically Signed By: Thony Perez MD, [facility] Yaw Thacker MD ECG ORDERABLES Final Result Performing Organization Address City/[facility]/ZIP Co de Phone Number [place] [employer] [facility] * POCT activated clotting time (09/29/2020 9:15 AM CDT) ACT, POC 234 Seconds Blood specimen (specimen) Yaw Thacker MD POINT OF CARE TEST ORDERABLES Fi nal Result * ECG 12 lead (09/29/2020 7:09 AM CDT) 09/29/2020 7:09 AM CDT Narrative [facility] - 09/29/2020 9:29 AM CDT Vent Rate: 62 bpm RR Interval: 964 msec OK Interval: 240 msec QRS Duration: 178 msec QT Interval: 411 msec QTC Interval: 416 msec P-R-T [place]: 0 - 69 - 60 degrees Sinus with first-degree AV block RIGHT BUNDLE BRANCH BLOCK ABNORMAL ECG Electronically Signed By: Thony Perez MD, [facility] Yaw Thacker MD ECG ORDERABLES Final Result [facility] documented in this encounter Visit Diagnoses Diagnosis CAD (coronary artery disease)- Primary Coronary atherosclerosis of unspecified type of vessel, [place] or graft CAD (coronary artery disease) Coronary atherosclerosis of unspecified type of vessel, [place] or graft SOB (shortness of breath) Shortness of breath SOB (shortness of breath) Shortness of breath CAD (coronary artery disease) Coronary atherosclerosis of unspecified type of vessel, [place] or graft SOB (shortness of breath) Shortness of breath documented in this encounter Admitting Diagnoses Diagnosis CAD (coronary artery disease) Coronary atherosclerosis of unspecified type of vessel, [place] or graft SOB (shortness of breath) Shortness of breath documented in this encounter Administered Medications Inactive Administered Medications - up to 3 most recent administrations Medication Order MAR Action Action Date Dose Rate Site acetaminophen (TYLENOL) tablet 500 mg 500 mg, oral, Every 6 hours PRN, 1st line for pain, 2nd line for pain, Starting on Tue09/30/20 at 0130 Given 09/30/2020 11:20 AM CDT 500 mg Given 09/30/2020 3:25 AM CDT 500 mg ALPRAZolam (XANAX) tablet 0.25 mg 0.25 mg, oral, Every 6 hours PRN, anxiety, Starting on Tue09/30/20 at 1426 Given 09/30/2020 9:08 PM CDT 0.25 mg aspirin enteric coated tablet 325 mg 325 mg, oral, Daily, First dose on Tue09/30/20 at 0900, Recovery (CV), Do not crush, chew, cut, dissolve, open or otherwise manipulate tablet/capsule., Indications: cardiovascular diseaseIndications:cardiovascular disease Given 10/01/2020 9:04 AM CDT 32 5 mg Given 09/30/2020 7:50 AM CDT 325 mg aspirin tablet As needed, Starting on Tue09/29/20 at 0944, Intra-Procedure (CV) Given 09/29/2020 9:44 AM CDT 243 mg atorvastatin (LIPITOR) tablet 20 mg 20 mg, oral, Nightly, First dose on Tue09/30/20 at 2100 Given 09/30/2020 9:08 PM CDT 20 mg clopidogreL (PLAVIX) tablet 75 mg 75 mg, oral, Daily, First dose on Tue09/30/20 at 0900, Recovery (CV), Indications: myocardial infarction prevention, cardiovascular diseaseIndications:myocardial infarction prevention,cardiovascular disease Given 10/01/2020 9:05 AM CDT 75 mg Given 09/30/2020 7:50 AM CDT 75 mg clopidogreL (PLAVIX) tablet As needed, Starting on Tue09/29/20 at 0944, Intra-Procedure (CV) Given 09/29/2020 9:44 AM CDT 600 mg fentaNYL (SUBLIMAZE) preservative free injection As needed, Starting on Tue09/29/20 at 0841, Intra-Procedure (CV) Given 09/29/2020 8:46 AM CDT 25 mcg Given 09/29/2020 8:41 AM CDT 25 mcg heparin 1,000 unit/mL injection As needed, Starting on Tue09/29/20 at 0859, Intra-Procedure (CV) Given 09/29/2020 9:15 AM CDT 3,000 Units Given 09/29/2020 8:59 AM CDT 7,000 Units heparin 5,000 unit/mL injection 5,000 Units 5,000 Units, subcutaneous, Every 12 hours scheduled, First dose on Tue09/29/20 at 1115, Indications: Deep Vein Thrombosis PreventionIndications:Deep Vein Thrombosis Prevention Given 10/01/2020 9:05 AM CDT 5,000 Units Left Lower Abdomen Given 09/30/2020 9:08 PM CDT 5,000 Units L eft Lower Abdomen Given 09/30/2020 7:51 AM CDT 5,000 Units O ther (Comment) heparin in 0.9% sodium chloride 1,000 units/500 mL (2 unit/mL) infusion (premix) As needed, Starting on Tue09/29/20 at 0831, Intra-Procedure (CV) Given 09/29/2020 8:31 AM CDT 1,500 mL iodixanoL (VISIPAQUE) 320 mg iodine/mL injection As needed, Starting on Tue09/29/20 at 0948, Intra-Procedure (CV) Given 09/29/2020 9:48 AM CDT 117 mL ioversoL (OPTIRAY 320) intravenous syringe 100 mL 100 mL, intravenous, Once in imaging, contrast, Starting on Tue09/30/20 at 1148, For 1 dose ioversoL (OPTIRAY 350) injection As needed, Starting on Tue09/29/20 at 0832, Intra-Procedure (CV) Given 09/29/2020 8:32 AM CDT 50 mL isosorbide mononitrate ER (IMDUR) extended release tablet 30 mg 30 mg, oral, Daily, First dose on Tue09/30/20 at 0930, Tablets that are scored may be split, but do not crush, chew, dissolve, open or otherwise manipulate tablet/capsule. Given 10/01/2020 9:05 AM CDT 30 mg Given 09/30/2020 11:18 AM CDT 30 mg lidocaine (XYLOCAINE) 10 mg/mL (1 %) injection As needed, Starting on Tue09/29/20 at 0847, Intra-Procedure (CV), Indications: Administration of Local AnesthesiaIndications:Administration of Local Anesthesia Given 09/29/2020 8:47 AM CDT 10 mL Right Groin metoprolol tartrate (LOPRESSOR) immediate release tablet 25 mg 25 mg, oral, 2 times daily, First dose on Tue10/01/20 at 0915 Given 10/01/2020 9:04 AM CDT 25 mg midazolam (VERSED) 1 mg/mL preservative free injection Administer over 2 Minutes, As needed, Starting on Tue09/29/20 at 0841, Intra-Procedure (CV) Given 09/29/2020 8:47 AM CDT 1 mg Given 09/29/2020 8:41 AM CDT 2 mg nitroglycerin (NITROSTAT) sublingual tablet 0.4 mg 0.4 mg, sublingual, Every 5 min PRN, chest pain, Starting on Tue09/30/20 at 0130, May administer up to 3 doses per episode. Given 09/30/2020 3:40 AM CDT 0.4 mg Given 09/30/2020 3:34 AM CDT 0.4 mg Given 09/30/2020 3:23 AM CDT 0.4 mg nitroglycerin injection 200 mcg/mL D5W 10 mL As needed, Starting on Tue09/29/20 at 0852, Intra-Procedure (CV) Given 09/29/2020 9:37 AM CDT 300 mcg Given 09/29/2020 9:23 AM CDT 300 mcg Given 09/29/2020 8:52 AM CDT 300 mcg norepinephrine (LEVOPHED) 8,000 mcg in dextrose 5% 250 mL (32 mcg/mL) infusion Continuous PRN, Starting on Tue09/29/20 at 0902, Intra-Procedure (CV) Rate/Dose Change 09/29/2020 9:22 AM CDT 0.03 mcg/kg/min 4.71 mL/hr Rate/Dose Change 09/29/2020 9:14 AM CDT 0.04 mcg/kg/min 6. 28 mL/hr Rate/Dose Change 09/29/2020 9:10 AM CDT 0.03 mcg/kg/min 4. 71 mL/hr pantoprazole DR (PROTONIX) extended release tablet 40 mg 40 mg, oral, Daily, First dose on Tue09/30/20 at 0930, Do not crush, chew, cut, dissolve, open or otherwise manipulate tablet/capsule., Indications: Stress Ulcer ProphylaxisIndications:Stress Ulcer Prophylaxis Given 10/01/2020 9:04 AM CDT 40 mg Given 09/30/2020 11:18 AM CDT 40 mg sodium chloride 0.9% bolus Continuous PRN, Starting on Tue09/29/20 at 0854, Intra-Procedure (CV) New Bag 09/29/2020 8:54 AM CDT 250 mL sodium chloride 0.9% infusion Continuous PRN, Starting on Tue09/29/20 at 0832, Intra-Procedure (CV) New Bag 09/29/2020 8:32 AM CDT 75 mL/hr 75 mL/hr sodium chloride 0.9% solution As needed, Starting on 09/29/20 at 0832, Intra-Procedure (CV) Given 09/29/2020 8:32 AM CDT 1,000 mL documented in this encounter Discontinued Medications Medication Sig Discontinue Reason Start Date End Da te clopidogreL (PLAVIX) 75 mg tablet Take 75 mg by mouth daily Therapy completed 09/29/2020 documented as of this encounter Historical Medications * This list may reflect changes made after this encounter. vitamin E (vitamin E) 400 unit capsule Take 1 capsule (400 Units total) by mouth 2 (two) times a day 08/31/2012 fluticasone propionate (FLONASE) 50 mcg/actuation nasal spray Administer 2 sprays into each nostril as needed ascorbic acid, vitamin C, 500 mg capsule Take 500 mg by mouth daily 06/16/2017 cholecalciferol, vitamin D3, (VITAMIN D3 ORAL) Take 1 capsule by mouth daily multivitamin capsule Take 1 capsule by mouth daily 08/31/2012 ASPIRIN ORAL Take 81 mg by mouth daily 08/31/2012 albuterol HFA (PROVENTIL HFA,VENTOLIN HFA,PROAIR HFA) 90 mcg/actuation inhaler Inhale 2 puffs every 6 (six) hours as needed for wheezing buPROPion SR (WELLBUTRIN SR) 150 mg 12 hr tablet Take 1 tablet (150 mg total) by mouth 2 (two) times a day atorvastatin (LIPITOR) 20 mg tablet Take 1 tablet (20 mg total) by mouth nightly doxazosin (CARDURA) 4 mg tablet Take 1 tablet (4 mg total) by mouth nightly gabapentin (NEURONTIN) 300 mg capsule Take 1 capsule (300 mg total) by mouth nightly latanoprost (XALATAN) 0.005 % ophthalmic solution Administer 1 drop into the right eye nightly brimonidine-timol oL (COMBIGAN) 0.2-0.5 % ophthalmic solution Administer 1 drop into the right eye 2 (two) times a day omeprazole (PriLOSEC) 20 mg capsule Take 1 capsule (20 mg total) by mouth daily isosorbide mononitrate ER (IMDUR) 30 mg 24 hr tablet Take 1 tablet (30 mg total) by mouth daily budesonide-formot Giovana (SYMBICORT) 160-4.5 mcg/actuation inhaler Inhale 2 puffs 2 (two) times a day Rinse mouth with water after use. Do not swallow. clopidogreL (PLAVIX) 75 mg tablet Take 75 mg by mouth daily 1 omega 8-[id number]-fish oil (Fish Oil) 1,000 mg (120 mg-180 mg) capsule Take 1 capsule by mouth daily 1 added in this encounter Active and Recently Administered Medications Times are shown in CDT. Scheduled Medication Order 09/29/2020 09/30/2020 10/01/2020 ALPRAZolam (XANAX) tablet 0.25 mg (COMPLETED) 0.25 mg, oral, Once, On Tue09/30/20 at 1330, For 1 dose 1319 (Given - Provider: Elizabeth Cummings RN) aluminum-magnesium hydroxide 40-40 mg/mL oral suspension 30 mL (COMPLETED) 30 mL, oral, Once, On Tue09/29/20 at 1530, For 1 dose 1459 (Given - Provider: Maranda Snyder RN) aspirin enteric coated tablet 325 mg 325 mg, oral, Daily, First dose on Tue09/30/20 at 0900, Recovery (CV), Do not crush, chew, cut, dissolve, open or otherwise manipulate tablet/capsule., Indications: cardiovascular disease 0750 (Given - Provider: Eliazbeth Cummings RN) 0904 (Given - Provider: Mayra Hernandez, JEAN CARLOS) atorvastatin (LIPITOR) tablet 20 mg 20 mg, oral, Nightly, First dose on Tue09/30/20 at 2100 2108 (Given - Provider: Robb Castillo RN) clopidogreL (PLAVIX) tablet 75 mg 75 mg, oral, Daily, First dose on Tue09/30/20 at 0900, Recovery (CV), Indications: myocardial infarction prevention, cardiovascular disease 0750 (Given - Provider: Elizabeth Cummings RN) 0905 (Given - Provider: Mayra Hernandez RN) famotidine (PEPCID) tablet 20 mg (CANCELED) 20 mg, oral, 2 times daily, First dose on Tue09/29/20 at 1815 1816 (Given - Provider: Pippa Fuentes RN) 0750 (Given - Provider: Elizabeth Cummings RN) heparin 5,000 unit/mL injection 5,000 Units 5,000 Units, subcutaneous, Every 12 hours scheduled, First dose on Tue09/29/20 at 1115, Indications: Deep Vein Thrombosis Prevention 1144 (Not Given - Provider: Maranda Snyder RN - Reason: Other)2049 (Not Given - Provider: Robb Castillo RN - Reason: Patient/family refused) 075 (Given - Provider: Elizabeth Cummings RN)2107 (Given - Provider: Robb Castillo RN) 09 (Given - Provider: Mayra Hernandez RN) isosorbide mononitrate ER (IMDUR) extended release tablet 30 mg 30 mg, oral, Daily, First dose on Tue09/30/20 at 0930, Tablets that are scored may be split, but do not crush, chew, dissolve, open or otherwise manipulate tablet/capsule. 1118 (Given - Provider: Elizabeth Cummings RN) 09 (Given - Provider: Mayra Hernandez RN) metoprolol tartrate (LOPRESSOR) immediate release tablet 25 mg 25 mg, oral, 2 times daily, First dose on Tue10/01/20 at 0915 0904 (Given - Provider: Mayra Hernandez RN) pantoprazole DR (PROTONIX) extended release tablet 40 mg 40 mg, oral, Daily, First dose on Tue09/30/20 at 0930, Do not crush, chew, cut, dissolve, open or otherwise manipulate tablet/capsule., Indications: Stress Ulcer Prophylaxis 1118 (Given - Provider: Elizabeth Cummings RN) 09 (Given - Provider: Mayra Hernandez RN) traMADoL (ULTRAM) tablet 50 mg (COMPLETED) 50 mg, oral, Once, On Tue09/30/20 at 0500, For 1 dose 0437 (Given - Provider: Robb Castillo RN) Continuous Medication Order 09/29/2020 09/30/2020 10/01/2020 sodium chloride 0.9% infusion () 75 mL/hr, intravenous, Continuous, Starting on Tue09/29/20 at 1115, For 4 hours, Recovery (CV) 1034 (Rate/Dose Verify - Provider: Maranda Snyder, JEAN CARLOS)1423 (Stopped - Provider: Maranda Snyder RN) PRN Medication Order 09/29/2020 09/30/2020 10/01/2020 acetaminophen (TYLENOL) tablet 500 mg 500 mg, oral, Every 6 hours PRN, 1st line for pain, 2nd line for pain, Starting on Tue09/30/20 at 0130 0325 (Given - Provider: Robb Castillo RN)1120 (Given - Provider: Elizabeth Cummings RN) ALPRAZolam (XANAX) tablet 0.25 mg 0.25 mg, oral, Every 6 hours PRN, anxiety, Starting on Tue09/30/20 at 1426 2108 (Given - Provider: Robb Castillo RN) aspirin tablet (CANCELED) As needed, Starting on Tue09/29/20 at 0944, Intra-Procedure (CV) 0944 (Given - Provider: Enmanuel Amato RN) clopidogreL (PLAVIX) tablet (CANCELED) As needed, Starting on Tue09/29/20 at 0944, Intra-Procedure (CV) 0944 (Given - Provider: Enmanuel Amato RN) fentaNYL (SUBLIMAZE) preservative free injection (CANCELED) As needed, Starting on Tue09/29/20 at 0841, Intra-Procedure (CV) 0841 (Given - Provider: Enmanuel Amato RN)0846 (Given - Provider: Enmanuel Amato RN) heparin 1,000 unit/mL injection (CANCELED) As needed, Starting on Tue09/29/20 at 0859, Intra-Procedure (CV) 0859 (Given - Provider: Enmanuel Amato RN - Comment: double check by SEVERO RN)0915 (Given - Provider: Enmanuel Amato RN - Comment: double check by SEVERO EVANGELISTA) heparin in 0.9% sodium chloride 1,000 units/500 mL (2 unit/mL) infusion (premix) (CANCELED) As needed, Starting on Tue09/29/20 at 0831, Intra-Procedure (CV) 0831 (Given - Provider: Enmanuel Amato RN) iodixanoL (VISIPAQUE) 320 mg iodine/mL injection (CANCELED) As needed, Starting on Tue09/29/20 at 0948, Intra-Procedure (CV) 0948 (Given - Provider: Yaw Thacker MD) ioversoL (OPTIRAY 320) intravenous syringe 100 mL 100 mL, intravenous, Once in imaging, contrast, Starting on Tue09/30/20 at 1148, For 1 dose ioversoL (OPTIRAY 350) injection (CANCELED) As needed, Starting on Tue09/29/20 at 0832, Intra-Procedure (CV) 0832 (Given - Provider: Enmanuel Amato RN - Comment: angioplasty supply) lidocaine (XYLOCAINE) 10 mg/mL (1 %) injection (CANCELED) As needed, Starting on Tue09/29/20 at 0847, Intra-Procedure (CV), Indications: Administration of Local Anesthesia 0847 (Given - Provider: Yaw Thacker MD) midazolam (VERSED) 1 mg/mL preservative free injection (CANCELED) Administer over 2 Minutes, As needed, Starting on Tue09/29/20 at 0841, Intra-Procedure (CV) 0841 (Given - Provider: Enmanuel Amato RN)0847 (Given - Provider: Enmanuel Amato RN) nitroglycerin (NITROSTAT) sublingual tablet 0.4 mg 0.4 mg, sublingual, Every 5 min PRN, chest pain, Starting on Tue09/30/20 at 0130, May administer up to 3 doses per episode. 0323 (Given - Provider: Robb Castillo RN)0334 (Given - Provider: Robb Castillo RN)0340 (Given - Provider: Robb Castillo RN) nitroglycerin injection 200 mcg/mL D5W 10 mL (CANCELED) As needed, Starting on Tue09/29/20 at 0852, Intra-Procedure (CV) 0852 (Given - Provider: Yaw Thacker MD)0923 (Given - Provider: Yaw Thacker MD)0937 (Given - Provider: Yaw Thacker MD) norepinephrine (LEVOPHED) 8,000 mcg in dextrose 5% 250 mL (32 mcg/mL) infusion (CANCELED) Continuous PRN, Starting on Tue09/29/20 at 0902, Intra-Procedure (CV) 0902 (New Bag - Provider: Enmanuel Amato RN)0910 (Rate/Dose Change - Provider: Enmanuel Amato RN)0914 (Rate/Dose Change - Provider: Enmanuel Amato RN)0922 (Rate/Dose Change - Provider: Enmanuel Amato, RN)0937 (Stopped - Provider: Enmanuel Amato, RN) sodium chloride 0.9% bolus (CANCELED) Continuous PRN, Starting on Tue09/29/20 at 0854, Intra-Procedure (CV) 0854 (New Bag - Provider: Enmanuel Amato RN)0918 (Stopped - Provider: Enmanuel Amato, RN) sodium chloride 0.9% infusion (COMPLETED) Continuous PRN, Starting on Tue09/29/20 at 0832, Intra-Procedure (CV) 0832 (New Bag - Provider: Enmanuel Amato RN)1034 (Stopped - Provider: Maranda Snyder RN) sodium chloride 0.9% solution (CANCELED) As needed, Starting on Tue09/29/20 at 0832, Intra-Procedure (CV) 0832 (Given - Provider: Enmanuel Amato RN - Comment: atherectomy soln base) documented in this encounter Orders Medications Ordered That Eligio ht Not Have Been Administered Count Last Ordered Date First Ordered Date metoprolol tartrate (LOPRESS OR) immediate release tablet 25 mg 1 10/01/2020 acetaminophen (TYLENOL) tablet 500 mg 1 08/2020 ALPRAZolam (XANAX) tablet 0.25 mg 2 021 atorvastatin (LIPITOR) tablet 20 mg 1 09/30 ioversoL (OPTIRAY 320) intra venous syringe 100 mL 1 09/30/2020 isosorbide mononitrate ER (I MDUR) extended release tablet 30 mg 1 09/30/2020 nitroglycerin (NITROSTAT) ray blingual tablet 0.4 mg 1 09/30/[address] (PROTONIX) e xtended release tablet 40 mg 1 09/30/2020 traMADoL (ULTRAM) tablet 50 mg 1 09/30/2020 aluminum-magnesium hydroxide 40-40 mg/mL oral suspension 30 mL 1 09/29/2020 aspirin enteric coated tablet 325 mg 1 07/2020 clopidogreL (PLAVIX) tablet 75 mg 1 021 famotidine (PEPCID) tablet 20 mg 1 09/30/19 heparin 5,000 unit/mL inject ion 5,000 Units 1 09/29/2020 sodium chloride 0.9% infusion 1 09/29/2020 Nursing Count Last Ordered Date First Orde red Date NURSING COMMUNICATION 1 09/29/2020 Consult Count Last Ordered Date First Orde red Date IP CONSULT TO UROLOGY 1 09/29/2020 documented in this encounter Care Teams [facility] [employer] Relationship Specialty Start Date End Date Angelo Mccloud MD [address] [place] [address] PCP - General 09/29/20 09/29/20 documented as of this encounter
--- OUTSIDE RECORDS SUMMARY | 2024-06-01 02:23 | XMS_ITS | Encounter Summary ---
Author Organization [facility] Healthcare Address [address] [place] [address] Care Team Providers Care Bull Riveter Name Role Phone Angelo Mccloud MD Primary Care Provider [phone] Irwin Padilla MD Primary Care Provider [phone] Angelo Mccloud MD Primary Care Provider [phone] Encounter Details Date Type Department Care Team (Latest Contact Info) Description 09/29/2020 6:18 AM CDT - 10/01/2020 2:05 PM CDT Hospital Encounter [facility] [address] [place] [address] Yaw Thacker MD [address] [place] [address] CAD (coronary artery disease); SOB (shortness of breath) Discharge Disposition: Discharge to home or self [...] on file 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 Gender Identity Not on file Sexual Orientation Not on file documented as of this encounter Last Filed Vital Signs Vital Sign Reading Time Taken Comments Blood Pressure 141/87 10/01/2020 8:04 AM CDT Pulse 78 10/01/2020 12:00 PM CDT Temperature 36.4 ??C (97.5 ??F) 10/01/2020 8:04 AM CD T Respiratory Rate 19 10/01/2020 8:04 AM CDT Oxygen Saturation 96% 10/01/2020 8:04 AM CDT Inhaled Oxygen Concentration - - Weight 80.7 kg (177 lb 14.4 oz) 10/01/2020 5:00 AM CDT Height 180.3 cm (5' 11 ) 09/29/2020 6:52 AM CDT Body Mass Index 24.81 09/29/2020 6:52 AM CDT documented in this encounter Discharge Diagnoses Diagnosis Atherosclerotic heart disease of [place] coronary artery without angina pectoris - ATHEROSCLEROTIC HEART DISEASE OF [place] CORONARY ARTERY WITHOUT ANGINA PECTORIS Postprocedural hemorrhage of a genitourinary system organ or structure following other procedure - POSTPROCEDURAL HEMORRHAGE OF A GENITOURINARY SYSTEM ORGAN OR STRUCTURE FOLLOWING OTHER PROCEDURE Hyperlipidemia, unspecified - HYPERLIPIDEMIA, UNSPECIFIED Chronic obstructive pulmonary disease, unspecified (HCC) - CHRONIC OBSTRUCTIVE PULMONARY DISEASE, UNSPECIFIED Benign prostatic hyperplasia with lower urinary tract symptoms - BENIGN PROSTATIC HYPERPLASIA WITH LOWER URINARY TRACT SYMPTOMS Gross hematuria - GROSS HEMATURIA tank terminal gauger (current) use of inhaled steroids - SKILLED NURSING (CURRENT) USE OF INHALED STEROIDS tank terminal gauger (current) use of aspirin - ASTRONAUTICAL ENGINEER (CURRENT) USE OF ASPIRIN Personal history of urinary calculi - PERSONAL HISTORY OF URINARY CALCULI Personal history of nicotine dependence - PERSONAL HISTORY OF NICOTINE DEPENDENCE Anxiety disorder, unspecified - ANXIETY DISORDER, UNSPECIFIED Major depressive disorder, single episode, unspecified - MAJOR DEPRESSIVE DISORDER, SINGLE EPISODE, UNSPECIFIED Unspecified osteoarthritis, unspecified site - UNSPECIFIED OSTEOARTHRITIS, UNSPECIFIED SITE Gastro-esophageal reflux disease without esophagitis - GASTRO-ESOPHAGEAL REFLUX DISEASE WITHOUT ESOPHAGITIS Other usp (current) drug therapy - OTHER SKILLED NURSING (CURRENT) DRUG THERAPY Poor urinary stream - POOR URINARY STREAM Presence of urogenital implants - PRESENCE OF UROGENITAL IMPLANTS Presence of coronary angioplasty implant and graft - PRESENCE OF CORONARY ANGIOPLASTY IMPLANT AND GRAFT Coronary atherosclerosis due to calcified coronary lesion (CODE) - CORONARY ATHEROSCLEROSIS DUE TO CALCIFIED CORONARY LESION Surgical operation with implant of artificial internal device as the cause of abnormal reaction of the patient, or of later complication, without mention of misadventure at the time of the procedure - SURGICAL OPERATION WITH IMPLANT OF ARTIFICIAL INTERNAL DEVICE THE CAUSE OF ABNORMAL REACTION OF T Other place in hospital as the place of occurrence of the external cause - OTHER PLACE IN HOSPITAL THE PLACE OF OCCURRENCE OF THE EXTERNAL CAUSE Other specified events, undetermined intent, initial encounter - OTHER SPECIFIED EVENTS, UNDETERMINED INTENT, INITIAL ENCOUNTER documented in this encounter Discharge Instructions * [...] day 60 tablet 11 10/01/2020 1 omega 6-ore-qcu-fish oil (Fish Oil) 1,000 mg (120 mg-180 [...] Mcfadden MD - 10/01/2020 8:38 AM CDT [facility] - Cardiology [facility] Progress Note Admit [...] found for: T3FREE No results found for: [id number] Pain Assessment: Sleeping Meds MEDICATIONS FOR CURRENT [...] On bronchodilators Jude Mcfadden MD * Lizbeth Nava NP - 10/01/2020 8:15 AM CDT Urology Progress [...] any questions. Lizbeth Nava NP Urology Division [employer] Office [phone] 10/01/2020 8:15 AM Cosigned by Martin Alvarado MD at 10/20/2020 4:27 AM CDT * Rosy Amato RN - 09/30/2020 1:40 PM CDT CM Initial Assessment Interview Note Information Obtained From: Patient (09/30/201339) Admission Source: ED Impression: Admitted OPB s/p PCI with stent & RotoRooter. Plan Includes: Urology consulted for hematuria. Primary Source of Transportation: [employer] Insurance Coverage: [facility] Medicare Prescription Coverage: UHC Medicare Pharmacy: [place], [place] Primary Care Provider: Irwin Padilla MD Prior to Admission: Primary Caregiver: Self Support System: Spouse/Significant Other Support system contact info (name, phone, availablity): Nina Camara, significant other/friend [phone] Home Care Services: No Durable Medical Equipment: Cane (single prong) Living Arrangements: Alone(Nina often stays with pt.) Type of Residence: Private residence Steps in home? : Yes, Inside home Number of steps inside:: 14 steps (09/30/201339) Potential discharge needs include: None Dialysis: No Behavioral Health Services: Behavioral Health Services: No (09/30/201339) Patient expects to be Discharged to: Private residence, (09/30/201339) Additional Information: CM met with pt at bedside to complete assessment for initial discharge planning. Demographics verified per face sheet. Pt lives in a 2 story home alone but his significant other/friend/designated professional healthcare representative Nina Camara stays with him often. Pt reports has a Living Will for health care but does not have a copy. Pt gives consent to obtain copy from [facility] -- follow-up needed. Pt independent with [...] Collaboration with patient, MD, direct care nurse, Shellfish Sorter, Nurse Coordinator and other members of the health care team to assure needed interventions completed. 2. Return patient to optimal level of self-care post discharge. 3. Drying Room Operator will follow for Discharge Planning - interventions as needed 4. Anticipated level of care at discharge 5. Planned Discharge Disposition GEORGIE Barillas-RN [facility] [phone] * Jose Carlos Larry MD - 09/30/2020 [...] any questions. Lizbeth Nava NP Urology Division [facility] Office [phone] 09/30/2020 8:46 AM Cosigned by Martin Alvarado [...] Reviewed with Dr. Thacker and Dr. Larry- Pérez LUGO. Will check stat trop now. Will restart [...] Hx basal cell cancer Pippa Castillo NP [facility] 09/30/2020 8:30 AM documented [...] WITH STENT(S) - MAJOR CORONARY [id number] - [id number] Source Note - Yaw Thacker MD - 09/25/2020 12:54 PM CDT documented in this encounter Procedure Notes * Yaw Thacker MD - 09/29/2020 10:04 AM CDT Procedures KEDAR Via rfa 7f CLS 3.5 csi atherectomy with ptca with a 3.5 x 26mm vivienne IVUS pre and post for stent size and apposition [id number] * Yaw Thacker MD - 09/29/2020 12:00 AM CDT An 84-year-old male who was admitted essentially to do an intervention to [facility]. The patient has been having significant shortness [...] why we need to do it at [facility]. He was agreeable. He understood the potential risks and benefits and wished to proceed. Patient prepped and draped in usual sterile fashion. 1% lidocaine used to infiltrate the region of the right femoral. Micropuncture kit used to access the right common femoral artery and placed a 7 sheath. We passed a CLS 3.5 guide, 7- Frisian engaged, gave weight-based heparin. Initially tried to pass a Viper wire but it would not pass, so then I passed a neurosurgical physician assistant along with a Whisper. We removed the Whisper and passed down the Viper wire and then removed the neurosurgical physician assistant. Over this, we used a Diamondback 360 1.25 Coronary Classic and did multiple runs. Once these multiple runs were done, I removed, this took a picture, then I used a 2.5 balloon, a 2.5 x 20 Emerge. We ballooned. Then I passed anIVUS and the vessel appeared to be 3.5 to 4. So I decided to place a 3.5 x 26 Resolute Vivienne inflated to 16 atmospheres for 15 seconds. [...] was observed throughout. Job ID/VF Job ID: [id number] documented in this encounter Consult Notes * Lizbeth Nava, WIENER PACKER - 09/29/2020 4:09 PM CDTAssociated Order(s): IP [...] day 09/29/2020 at Unknown time ??? omega 5-urh-nqw-fish oil (Fish Oil) 1,000 mg (120 mg-180 [...] if you have any questions. SANDY Omalley [facility] Department of Surgery, Division of Urology [phone] 09/29/2020 4:09 PM Cosigned by Martin Alvarado MD at 10/02/2020 6:28 AM CDT documented in this encounter Nursing Notes * Maranda Snyder RN - 09/29/2020 3:32 PM CDT Patient had hematuria post cardiac cath, dr. thacker made aware, consult urology. See provider notification for time and details. Chest pain post procedure, ekg done and read by dr. Thacker, States pain is not cardiac related.Pt states this pain is worse with inspiration, palpation. maalox and breathing treatment given. Seemar. Pt's chest pain was 3/10 when pt to floor---imaging engineer with [employer] called earlier, see provider notification and made aware of patient's hematuria x1 post procedure. Will come see patient. documented in this encounter Miscellaneous Notes * Plan of Care - Rosy Amato RN - 10/01/2020 1:54 PM CDT CM made multiple attempts to reach [facility] P: [phone] to reach drilling plant operator & Medical Records in order to fax release of info to obtain advance directive. Phone rings continuously unanswered. Pt informed still need of copy of advance directive. Pt being discharged home today. Pt to follow-up outpatient with Dr. Alvarado for cystoscopy on 10/14/20 at 10:40 am on AVS. No further CM follow-up needed. GEORGIE Barillas-RN [facility] [phone]' * Plan of Care - Mayra Hernanedz RN - 10/01/2020 1:51 PM CDT Goals: [...] excessive bleeding Outcome: Progressing * Plan of Pippa Julian RN - 09/29/2020 5:44 PM CDT Goals: [...] that you and your doctor have chosen [facility] for your surgery. We hope that the [...] to take. ?? Use no make-up, nail macedonian, lotions, oils or powders on your skin. [...] Results * eGFR (10/01/2020 6:01 AM CDT) eGFR 61 mL/min/1.7 3 m2 [facility] [...] 6:01 AM CDT 10/01/2020 7:11 AM CDT us Yaw Thacker MD LAB BLOOD ORDERABLES Final Resul t [facility] [address] Department of [place] [address] * Basic metabolic panel (10/01/2020 6:01 AM CDT) Sodium 141 135 - 145 mmol/L [facility] Potassium, pl 4.0 3.3 - 4.9 mmol/L [facility] Chloride 103 97 - 110 mmol/L [facility] CO2 27 22 - 32 mmol/L [facility] Anion gap 11 2 - 15 mmol/L [facility] CH BUN 22 8 - 25 mg/dL [facility] Creatinine 1.11 0.80 - 1.30 mg/dL [facility] Glucose 91 70 - 199 mg/dL [facility] Comment: Interpretive Data Fasting glucose >/= [...] 2017. Calcium 8.8 8.5 - 10.3 mg/dL [facility] Blood specimen (specimen) 10/01/2020 6:01 AM CDT 10/01/2020 7:11 AM CDT Yaw Thacker MD LAB BLOOD ORDERABLES Final Resul t [facility] [address] Department of [place] [address] * (ABNORMAL) Troponin T high-sensitivity 6-hour (09/30/2020 8:01 PM CDT) Trop T hs 98(H) <=22 ng/L [facility] Comment: Interpretive Data For further hscTnT resources including the diagnostic algorithm and an aid in interpretation, copy and paste this link: https://nrl.testcatalog.org/show/hsTrop Current Interpretive Data last revised 2020. Trop T hs delta 0 ng/L [facility] Trop T hs interp Insignificant [facility] Blood specimen (specimen) 09/30/2020 8:01 PM CDT 09/30/2020 8:06 PM CDT Pippa Castillo NP LAB BLOOD ORDERABLES Elva rand Result Performing Organization Address [facility] Co de Phone Number [facility] [address] [place] [address] * (ABNORMAL) Troponin T high-sensitivity 4-hour (09/30/2020 6:27 PM CDT) Trop T hs 98(H) <=22 ng/L [facility] Comment: Slight hemolysis may result in decreased troponin measurement. Consider recollection. Interpretive Data For further hscTnT resources including the diagnostic algorithm and an aid in interpretation, copy and paste this link: https://nrl.[employer].org/show/hsTrop Current Interpretive Data last revised 2020. Trop T hs delta 0 ng/L [facility] Trop T hs interp Insignificant [facility] Blood specimen (specimen) 09/30/2020 6:27 PM CDT 09/30/2020 6:31 PM CDT Pippa Castillo NP LAB BLOOD ORDERABLES Elva rand Result Performing Organization Address [facility] Co de Phone Number [facility] [address] [address] [facility] [employer] [place] [address] * (ABNORMAL) Troponin T high-sensitivity 2-hour (09/30/2020 3:46 PM CDT) Trop T hs 96(H) <=22 ng/L [facility] Comment: Interpretive Data For further hscTnT resources including the diagnostic algorithm and an aid in interpretation, copy and paste this link: https://nrl.[employer].org/show/hsTrop Current Interpretive Data last revised 2020. Trop T hs delta -2 ng/L [facility] Trop T hs interp Insignificant [facility] Blood specimen (specimen) 09/30/2020 3:46 PM CDT 09/30/2020 3:48 PM CDT Pippa Castillo NP LAB BLOOD ORDERABLES Elva l Result Performing Organization Address [facility] Co de Phone Number [facility] [address] [address] [facility] [employer] [place] [address] * (ABNORMAL) Troponin T high-sensitivity series (baseline, 2hr, 4hr, 6hr) (09/30/2020 2:10 PM CDT) Trop T hs 98(H) <=22 ng/L [facility] Comment: Interpretive Data For further hscTnT resources including the diagnostic algorithm and an aid in interpretation, copy and paste this link: https://nrl.[employer].org/show/hsTrop Current Interpretive Data last revised 2020. Blood specimen (specimen) 09/30/2020 2:10 PM CDT 09/30/2020 2:13 PM CDT us Pippa Castillo WIENER PACKER LAB BLOOD ORDERABLES Elva l Result Performing Organization Address [facility] Co de Phone Number [facility] [address] [address] [facility] [employer] [place] [address] * (ABNORMAL) Troponin T high-sensitivity (09/30/2020 9:33 AM CDT) Trop T hs 106(H) <=22 ng/L [facility] Comment: Interpretive Data For further hscTnT resources including the diagnostic algorithm and an aid in interpretation, copy and paste this link: https://nrl.3[employer].org/show/hsTrop Current Interpretive Data last revised 2020. Blood specimen (specimen) 09/30/2020 9:33 AM CDT 09/30/2020 9:42 AM CDT Pippa Castillo NP LAB BLOOD ORDERABLES Elva l Result Performing Organization Address City/[facility]/ZIP Co de Phone Number [facility] [address] [address] [facility] [employer] [place] [address] * eGFR (09/30/2020 5:23 AM CDT) eGFR 56 mL/min/1.7 3 m2 [facility] Comment: Interpretive Data Reference Interval Normal ?>/= [...] MD LAB BLOOD ORDERABLES Final Resul t [facility] [address] Department of [place] [address] * Basic metabolic panel (09/30/2020 5:23 AM CDT) Sodium 141 135 - 145 mmol/L [facility] Potassium, pl 3.9 3.3 - 4.9 mmol/L [facility] Chloride 105 97 - 110 mmol/L [facility] CO2 25 22 - 32 mmol/L [facility] Anion gap 11 2 - 15 mmol/L [facility] BUN 20 8 - 25 mg/dL [facility] Creatinine 1.18 0.80 - 1.30 mg/dL [facility] Glucose 95 70 - 199 mg/dL [facility] Comment: Interpretive Data Fasting glucose >/= [...] 2017. Calcium 9.0 8.5 - 10.3 mg/dL [facility] Blood specimen (specimen) 09/30/2020 5:23 AM CDT 09/30/2020 7:02 AM CDT Yaw Thacker MD LAB BLOOD ORDERABLES Final Resul t Performing Organization Address [facility] Phone Number [facility] [address] [facility] Department [place] [address] * ECG 12 lead (09/30/2020 3:56 AM CDT) 09/30/2020 3:56 AM CDT Narrative [facility] - 09/30/2020 10:28 AM CDT Vent Rate: 87 bpm RR Interval: 684 msec NE Interval: 193 msec QRS Duration: 166 msec QT Interval: 373 msec QTC Interval: 418 msec P-R-T [place]: 67 - 70 - 29 degrees SINUS RHYTHM WITH OCCASIONAL VENTRICULAR PREMATURE COMPLEXES RIGHT BUNDLE BRANCH BLOCK ??[120+ ms QRS DURATION, UPRIGHT V1, 40+ ms S IN I/aVL/V4/V5/V6] ABNORMAL ECG PVC NEW Electronically Signed By: Shaquille Murphy MD Yaw Thacker MD ECG ORDERABLES Final Result [facility] * XR Chest 1 Vw Portable (09/29/2020 [...] suspected. Electronically signed by: Beka Steward M.D. [facility] IMG XR PROCEDURES Final Result * ECG 12 lead (09/29/2020 5:47 PM CDT) 09/29/2020 5:47 PM CDT Narrative [facility] - 09/30/2020 1:30 PM CDT Vent Rate: 79 bpm RR Interval: 751 msec NE Interval: 179 msec QRS Duration: 181 msec QT Interval: 396 msec QTC Interval: 431 msec P-R-T [place]: -73 - 62 - 12 degrees SINUS RHYTHM RIGHT BUNDLE BRANCH BLOCK ??[120+ ms QRS DURATION, UPRIGHT V1, 40+ ms S IN I/aVL/V4/V5/V6] ST DEPRESSION, CONSIDER SUBENDOCARDIAL INJURY ??[0.1+ mV ST DEPRESSION] ABNORMAL ECG UNCHANGED Electronically Signed By: Shaquille Murphy MD Yaw Thacker MD ECG ORDERABLES Final Result Performing Organization Address [facility]/ZIP Co de Phone Number [facility] * eGFR (09/29/2020 5:36 PM CDT) [facility] eGFR 67 mL/min/1.7 3 m2 [facility] Comment: Interpretive Data Reference Interval Normal ?>/= [...] 5:36 PM CDT 09/29/2020 5:41 PM CDT Martin Alvarado MD LAB BLOOD ORDERABLES Fi nal Result Performing Organization Address City/[facility]/ZIP Co de Phone Number [facility] [address] Department of [place] [address] * Differential, auto (09/29/2020 5:36 PM CDT) Neutrophil abs 5.1 1.7 - 6.5 K/cumm [facility] Imm gran abs 0.0 0.0 - 0.1 K/cumm [facility] Lymphocyte abs 1.3 0.8 - 3.3 K/cumm [facility] Monocyte abs 0.7 0.2 - 0.8 K/cumm [facility] Eosinophil abs 0.1 0.0 - 0.5 K/cumm [facility] Basophil abs 0.0 0.0 - 0.1 K/cumm [facility] Neutrophil pct 70.6 % [facility] Comment: Interpretive Data Percent cell count reference ranges are not reported, since discordance with absolute values may lead to misinterpretation of CBC data. Current Interpretive Data was last revised on 2017. Imm gran pct 0.4 % [facility] Comment: Interpretive Data Percent cell count reference ranges are not reported, since discordance with absolute values may lead to misinterpretation of CBC data. Current Interpretive Data was last revised on 2017. Lymphocyte pct 17.8 % [facility] Comment: Interpretive Data Percent cell count reference ranges are not reported, since discordance with absolute values may lead to misinterpretation of CBC data. Current Interpretive Data was last revised on 2017. Monocyte pct 9.7 % [facility] Comment: Interpretive Data Percent cell count reference ranges are not reported, since discordance with absolute values may lead to misinterpretation of CBC data. Current Interpretive Data was last revised on 2017. Eosinophil pct 1.1 % [facility] Comment: Interpretive Data Percent cell count [...] MD LAB BLOOD ORDERABLES Fi nal Result Performing Organization Address [facility] Co de Phone Number [facility] [address] [employer] [place] [address] * (ABNORMAL) CBC with auto differential (09/29/2020 5:36 PM CDT) WBC 7.2 3.8 - 9.9 K/cumm [facility] Hgb 14.1 13.0 - 17.5 g/dL [facility] CH Hct 43.5 38.9 - 50.3 % [facility] CH Plt 188 150 - 400 K/cumm [facility] MPV 9.9 9.1 - 12.3 fL [facility] CH RBC 4.26(L) 4.30 - 5.80 M/cumm [facility] CH MCV 102.1(H) 81.3 - 96.4 fL [facility] CH MCH 33.1 27.1 - 33.3 pg [facility] CH MCHC 32.4 32.3 - 35.7 g/dL [facility] RDW CV 13.1 11.1 - 14.9 % [facility] CH RDW SD 49.1(H) 35.7 - 48.1 fL [facility] NRBC abs 0.00 0.00 - 0.01 K/cumm [facility] Blood specimen (specimen) 09/29/2020 5:36 PM CDT 09/29/2020 5:40 PM CDT Martin Alvarado MD LAB BLOOD ORDERABLES Fi nal Result Performing Organization Address City/[facility]/ZIP Co de Phone Number [facility] [address] [employer] [place] [address] * Basic metabolic panel (09/29/2020 5:36 PM CDT) Sodium 142 135 - 145 mmol/L [facility] Potassium, pl 4.1 3.3 - 4.9 mmol/L [facility] Chloride 107 97 - 110 mmol/L [facility] CO2 28 22 - 32 mmol/L [facility] Anion gap 7 2 - 15 mmol/L [facility] BUN 22 8 - 25 mg/dL [facility] Creatinine 1.02 0.80 - 1.30 mg/dL [facility] Glucose 94 70 - 199 mg/dL [facility] Comment: Interpretive Data Fasting glucose >/= [...] 2017. Calcium 8.8 8.5 - 10.3 mg/dL [facility] Blood specimen (specimen) 09/29/2020 5:36 PM CDT 09/29/2020 5:40 PM CDT us Martin Alvarado MD LAB BLOOD ORDERABLES Fi nal Result [facility] [address] Department [place] [address] * Urine culture Urine, clean voided (09/29/2020 5:20 PM CDT) Report Final Report: Less than 100,000 colonies/mL (clinically insignificant growth based on current clinical standards) [facility] Comment:Testing performed by : [facility], [address] [place]., [address] Organism (CLINICALLY INSIGNIFICANT GROWTH [facility] Urine, clean voided 09/29/2020 5:20 PM CDT 09/29/2020 7:39 PM CDT Narrative [facility] - 10/01/2020 9:28 AM CDT Indications for Culture:->Urology patient Testing performed by [facility] Microbiology [facility] ([phone]) us Lizbeth Nava NP LAB MICROBIOLOGY - GENERAL OR DERABLES Final Result Performing Organization Address [facility] Co de Phone Number [facility] [address] Department of [place] [address] * ECG 12 lead (09/29/2020 1:51 PM CDT) 09/29/2020 1:51 PM CDT Narrative [facility] - 09/29/2020 2:07 PM CDT Vent Rate: 69 bpm RR Interval: 867 msec NE Interval: 239 msec QRS Duration: 185 msec QT Interval: 417 msec QTC Interval: 436 msec P-R-T [place]: 74 - 66 - 77 degrees SINUS RHYTHM WITH FIRST DEGREE AV BLOCK RIGHT BUNDLE BRANCH BLOCK ??[120+ ms QRS DURATION, UPRIGHT V1, 40+ ms S IN I/aVL/V4/V5/V6] ABNORMAL ECG No significant change compared to prior ECG Electronically Signed By: Thony Perez MD, [facility] Yaw Thacker MD ECG ORDERABLES Final Result Performing Organization Address [facility] Co de Phone Number [facility] [employer] [facility] * POCT activated clotting time (09/29/2020 9:15 AM CDT) [facility] ACT, POC 234 Seconds Blood specimen (specimen) us Yaw Thacker MD POINT OF CARE TEST ORDERABLES Fi nal Result * ECG 12 lead (09/29/2020 7:09 AM CDT) 09/29/2020 7:09 AM CDT Narrative [facility] - 09/29/2020 9:29 AM CDT Vent Rate: 62 bpm RR Interval: 964 msec NE Interval: 240 msec QRS Duration: 178 msec QT Interval: 411 msec QTC Interval: 416 msec P-R-T [place]: 0 - 69 - 60 degrees Sinus with first-degree AV block RIGHT BUNDLE BRANCH BLOCK ABNORMAL ECG Electronically Signed By: Thony Perez MD, [facility] us Yaw Thacker MD ECG ORDERABLES Final Result [facility] documented in this encounter Visit Diagnoses Diagnosis CAD (coronary artery disease)- Primary Coronary atherosclerosis of unspecified type of vessel, [place] or graft CAD (coronary artery disease) Coronary atherosclerosis of unspecified type of vessel, [place] or graft SOB (shortness of breath) Shortness of breath SOB (shortness of breath) Shortness of breath documented in this encounter Admitting Diagnoses Diagnosis CAD (coronary artery disease) Coronary atherosclerosis of unspecified type of vessel, [place] or graft SOB (shortness of breath) Shortness [...] (XANAX) tablet 0.25 mg 0.25 mg, oral, Once, On Tue09/30/20 at 1330, For 1 dose Given 09/30/2020 1:19 PM CDT 0.25 mg ALPRAZolam (XANAX) tablet 0.25 mg 0.25 mg, oral, Every 6 hours PRN, anxiety, Starting on Tue09/30/20 at 1426 Given 09/30/2020 9:08 PM CDT 0.25 mg aluminum-magnesium hydroxide 40-40 mg/mL oral suspension 30 mL 30 mL, oral, Once, On Tue09/29/20 at 1530, For 1 dose Given 09/29/2020 2:59 PM CDT 30 mL aspirin enteric coated tablet 325 mg 325 mg, oral, Daily, First dose on Tue09/30/20 at 0900, Recovery (CV), Do not crush, chew, cut, dissolve, open or otherwise manipulate tablet/capsule., Indications: cardiovascular diseaseIndications:cardiovascular disease Given 10/01/2020 9:04 AM CDT 32 5 mg Given 09/30/2020 7:50 AM CDT 325 mg atorvastatin (LIPITOR) tablet 20 mg 20 mg, oral, Nightly, First dose on Tue09/30/20 at 2100 Given 09/30/2020 9:08 PM CDT 20 mg clopidogreL (PLAVIX) tablet 75 mg 75 mg, oral, Daily, First dose on Tue09/30/20 at 0900, Recovery (CV), Indications: myocardial infarction prevention, cardiovascular diseaseIndications:myocardial infarction prevention,cardiovascular disease Given 10/01/2020 9:05 AM CDT 75 mg Given 09/30/2020 7:50 AM CDT 75 mg famotidine (PEPCID) tablet 20 mg 20 mg, oral, 2 times daily, First dose on Tue09/29/20 at 1815 Given 09/30/2020 7:50 AM CDT 20 mg Given 09/29/2020 6:16 PM CDT 20 mg heparin 5,000 unit/mL injection 5,000 Units 5,000 Units, subcutaneous, Every 12 hours scheduled, First dose on Tue09/29/20 at 1115, Indications: Deep Vein Thrombosis PreventionIndications:Deep Vein Thrombosis Prevention Given 10/01/2020 9:05 AM CDT 5,000 Units Left Lower Abdomen Given 09/30/2020 9:08 PM CDT 5,000 Units L eft Lower Abdomen Given 09/30/2020 7:51 AM CDT 5,000 Units O ther (Comment) ioversoL (OPTIRAY 320) intravenous syringe 100 mL 100 mL, intravenous, Once in imaging, contrast, Starting on Tue09/30/20 at 1148, For 1 dose isosorbide mononitrate ER (IMDUR) extended release tablet 30 mg 30 mg, oral, Daily, First dose on Tue09/30/20 at 0930, Tablets that are scored may be split, but do not crush, chew, dissolve, open or otherwise manipulate tablet/capsule. Given 10/01/2020 9:05 AM CDT 30 m g Given 09/30/2020 11:18 AM CDT 30 mg metoprolol tartrate (LOPRESSOR) immediate release tablet 25 mg 25 mg, oral, 2 times daily, First dose on Tue10/01/20 at 0915 Given 10/01/2020 9:04 AM CDT 25 mg nitroglycerin (NITROSTAT) sublingual tablet 0.4 mg 0.4 mg, sublingual, Every 5 min PRN, chest pain, Starting on Tue09/30/20 at 0130, May administer up to 3 doses per episode. Given 09/30/2020 3:40 AM CDT 0.4 mg Given 09/30/2020 3:34 AM CDT 0.4 mg Given 09/30/2020 3:23 AM CDT 0.[address] (PROTONIX) extended release tablet 40 mg 40 mg, oral, Daily, First dose on Tue09/30/20 at 0930, Do not crush, chew, cut, dissolve, open or otherwise manipulate tablet/capsule., Indications: Stress Ulcer ProphylaxisIndications:Stress Ulcer Prophylaxis Given 10/01/2020 9:04 AM CDT 40 mg Given 09/30/2020 11:18 AM CDT 40 mg sodium chloride 0.9% infusion 75 mL/hr, intravenous, Continuous, Starting on Tue09/29/20 at 1115, For 4 hours, Recovery (CV) Rate/Dose Verify 09/29/2020 10:34 AM CDT 75 mL/hr 75 mL/hr traMADoL (ULTRAM) tablet 50 mg 50 mg, oral, Once, On Tue09/30/20 at 0500, For 1 dose Given 09/30/2020 4:37 AM CDT 50 mg documented in this encounter Discontinued Medications Medication [...] 75 mg by mouth daily 1 omega [id number]-fish oil (Fish Oil) 1,000 mg (120 mg-180 [...] Indications: cardiovascular disease 0750 (Given - Provider: Elizabeth Cummings RN) 0904 (Given - Provider: Mayra Hernandez RN) atorvastatin (LIPITOR) tablet 20 mg 20 mg, [...] Robb Castillo RN - Reason: Patient/family refused) 0751 (Given - Provider: Elizabeth Cummings RN)210 (Given - Provider: Robb Castillo RN) 0905 (Given - Provider: Mayra Hernandez RN) isosorbide mononitrate ER (IMDUR) extended release tablet 30 mg 30 mg, oral, Daily, First dose on Tue09/30/20 at 0930, Tablets that are scored may be split, but do not crush, chew, dissolve, open or otherwise manipulate tablet/capsule. 1118 (Given - Provider: Elizabeth Cummings RN) 0905 (Given - Provider: Mayra Hernandez RN) metoprolol tartrate (LOPRESSOR) immediate release tablet 25 mg 25 mg, oral, 2 times daily, First dose on Tue10/01/20 at 0915 0904 (Given - Provider: Mayra Hernandez, JEAN CARLOS) pantoprazole DR (PROTONIX) extended release tablet 40 mg 40 mg, oral, Daily, First dose on Tue09/30/20 at 0930, Do not crush, chew, cut, dissolve, open or otherwise manipulate tablet/capsule., Indications: Stress Ulcer Prophylaxis 1118 (Given - Provider: Elizabeth Cummings RN) 0904 (Given - Provider: Mayra Hernandez, JEAN CARLOS) traMADoL (ULTRAM) tablet 50 mg (COMPLETED) 50 mg, oral, Once, On Tue09/30/20 at 0500, For 1 dose 0437 (Given - Provider: Robb Castillo RN) Continuous Medication Order 09/29/2020 09/30/2020 10/01/2020 sodium chloride 0.9% infusion () 75 mL/hr, intravenous, Continuous, Starting on Tue09/29/20 at 1115, For 4 hours, Recovery (CV) 1034 (Rate/Dose Verify - Provider: Maranda Snyder RN)1423 (Stopped - Provider: Maranda Snyder RN) PRN [...] Intra-Procedure (CV) 0944 (Given - Provider: Enmanuel Amato, JEAN CARLOS) clopidogreL (PLAVIX) tablet (CANCELED) As needed, Starting [...] Amato RN - Comment: double check by DS RN)0915 (Given - Provider: Enmanuel Amato RN - Comment: double check by DS RN) heparin in 0.9% sodium chloride 1,000 units/500 [...] Amato RN)0922 (Rate/Dose Change - Provider: Enmanuel Amato RN)0937 (Stopped - Provider: Enmanuel Amato RN) sodium chloride 0.9% bolus (CANCELED) Continuous PRN, Starting on Tue09/29/20 at 0854, Intra-Procedure (CV) 0854 (New Bag - Provider: Enmanuel Amato RN)0918 (Stopped - Provider: Enmanuel Amato RN) sodium chloride 0.9% infusion (COMPLETED) Continuous [...] intra venous syringe 100 mL 1 09/30/2020 aspirin tablet 1 09/29/2020 clopidogreL (PLAVIX) tablet 1 09/29/2020 fentaNYL (SUBLIMAZE) preserv ative free injection 1 09/29/2020 heparin 1,000 unit/mL injection 1 heparin in 0.9% sodium chlor vikas 1,000 units/500 mL (2 unit/mL) infusion (premix) 1 09/29/2020 iodixanoL (VISIPAQUE) 320 mg iodine/mL injection 1 09/29/2020 ioversoL (OPTIRAY 350) injection 1 09/30/19 lidocaine (XYLOCAINE) 10 mg/ mL (1 %) injection 1 09/29/2020 midazolam (VERSED) 1 mg/mL p reservative free injection 1 09/29/2020 nitroglycerin injection 200 mcg/mL D5W 10 mL 1 09/29/2020 norepinephrine (LEVOPHED) 8, 000 mcg in dextrose 5% 250 mL (32 mcg/mL) infusion 1 09/29/2020 sodium chloride 0.9% bolus 1 09/29/2020 sodium chloride 0.9% infusion 1 09/29/2020 sodium chloride 0.9% solution 1 09/29/2020 Nursing Count Last Ordered Date First Orde red Date NURSING COMMUNICATION 1 09/29/2020 Consult Count Last Ordered Date First Orde red Date IP CONSULT TO UROLOGY 1 09/29/2020 documented in this encounter Care Teams Bull Riveter Relationship Specialty Start Date End Date Angelo Mccloud MD [address] [place] [address] PCP - General 09/29/20 09/29/20 Irwin Padilla MD [address] [place] [address] PCP - General Internal Medicine 09/30/20 09/30/20 Angelo Mccloud MD [address] [place] [address] PCP - General 10/01/20 documented as of this encounter
--- OUTSIDE RECORDS SUMMARY | 2024-06-01 02:24 | XMS_ITS | Encounter Summary ---
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
--- OUTSIDE RECORDS SUMMARY | 2024-06-01 02:24 | XMS_ITS | Encounter Summary ---
Author Organization [facility] Healthcare Address [address] [place] [address] Care Team Providers Care Bill Clerk Name Role Phone Unavailable Primary Care Provider Unavailabl e Encounter Details Date Type Department Care Team (Late st Contact Info) Description 09/21/2007 12:42 PM CDT - 09/21/2007 11:59 PM CDT Hospital Encounter [facility] Ad[place]to, [place] [address] [place] [id number] Social History Tobacco Use Types Packs/Day Years Used Date Smoking Tobacco: Never Assessed Sex and Gender Information Value Date Recorded Sex Assigned at Not on file 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
== END 2024-05-26 14:00 | disposition home or self-care (01) ==
LOC: ANHED 05-25 01:37 → ANH2MED 05-25 12:26
PROVIDERS: Emergency Medicine; Physician Assistant; Admitting Provider Internal Medicine; Emergency Provider Emergency Medicine; PCP Internal Medicine; Visit Provider Internal Medicine
DX: J18.9 Pneumonia, unspecified organism (principal); J43.9 Emphysema, unspecified; G47.30 Sleep apnea, unspecified; I10 Essential (primary) hypertension; H40.9 Unspecified glaucoma; Z20.822 Contact with and (suspected) exposure to COVID-19; Z87.891 Personal history of nicotine dependence; Z79.51 Long term (current) use of inhaled steroids; Z79.82 Long term (current) use of aspirin; Z79.899 Other long term (current) drug therapy
CPT/HCPCS: 36415; 71046; 80053; 83690; 83880; 84484; 85025; 85610; 85730; 87040; 87637; 93005; 94640; 96365; 96366; 96375; 97161; 97165; 99285; A9270; G0378; J0456; J0696; J7512

== ENCOUNTER 2024-05-29 18:31 | Inpatient (IN) | payer MEDICARE, SELFPAY ==
--- NOTE | ~2024-05-29 | XR_ITS ---
EXAMINATION: XR barium swallow modified DATE: 05/31/2024 09:27 INDICATION: Cough. TECHNIQUE: The patient was given barium-containing material of multiple consistencies to swallow by t he speech pathologist while I performed fluoroscopy. Fluoroscopy exposure time was 0.3 minutes. The n umber of fluoroscopy images saved to the PACS was 1. Dose-area product was 0.23 Gy-cm^2. FINDINGS: The oral stage, pharyngeal stage, and cervical/esophageal stage of the swallow are normal. IMPRESSION: 1. Normal modified barium swallow. 2. Please refer to the speech therapy report for recommendations. Reviewed, dictated and finalized at location [] [facility]
--- NOTE | ~2024-05-29 | CT_ITS ---
EXAMINATION: CTA chest PE abdomen pel DATE: 05/29/2024 21:05 INDICATION: cough, dyspnea, recent hospitalization TECHNIQUE: Computed tomography angiography (CTA) of the chest was performed with 100 mL Omnipaque-350 intravenous contrast timed to evaluate the pulmonary arteries, followed by portal venous phase imagi ng of the abdomen and pelvis. Coronal maximum intensity projection 3D-reconstructions were created by the technologist. The dose-length product (DLP) was 849.25 mGy-cm. Automated exposure control and it erative reconstruction technique were employed. COMPARISON: X-ray chest 05/14/2024; CT abdomen pelvis 05/13/2023. FINDINGS: CHEST: Lung parenchyma and airways: Biapical pleural scarring. Emphysematous change. Scattered tree-in-bud o pacities. Thin web in the mid trachea. Remaining airways are clear. Pleura: Calcified nodular pleural thickening in the left lung. Thoracic inlet, axillae and chest wall: No thyroid or soft tissue mass. Thoracic aorta: No significant dilation. No dissection. Moderate arch calcification. Mediastinum: Dilated central pulmonary arteries as can be seen with pulmonary arterial hypertension. Heart and pericardium: Normal heart size. Aortic valve calcification. Coronary artery calcifications: Moderate. Thoracic bones: No acute osseous finding. Pulmonary arteries: Study quality: Adequate. No pulmonary emboli detected. ABDOMEN/PELVIS: Liver: Normal. Biliary/Gallbladder: Gallbladder is absent. No bile duct dilation. Pancreas: No mass or duct dilation. Spleen: Normal. Adrenals:No mass. Kidneys: No suspicious mass, obstructing stone, or hydronephrosis. 4 mm nonobstructing left midpole c alcification Subcentimeter left lower pole hypodensities, too small to characterize but most likely r epresent cysts. Simple left upper pole cyst. GI tract: Moderate hiatal hernia. Multiple duodenal diverticula. No small or large bowel dilation. No rmal appendix. Diverticulosis without diverticulitis. Mesentery/Peritoneum: No ascites, mass, or free air. Retroperitoneum: No mass. Pelvis: Trabeculated bladder with mild wall thickening. Marked prostate enlargement. Right pelvic res ervoir. Soft Tissues: Small uncomplicated fat-containing umbilical and left inguinal hernias. Abdominopelvic bones: No acute osseous finding. Stable compression deformity at L1. IMPRESSION: No CT evidence of acute pulmonary embolus. Scattered mild tree-in-bud opacities as can be seen with atypical infection, ABPA, airways disease, a nd aspiration. Emphysema and asbestos related pleural disease. Bladder wall thickening may be secondary to cystitis or chronic outlet obstruction from prostatomegal y. Reviewed, dictated and finalized at location [facility] IMPRESSION: No CT evidence of acute pulmonary embolus. Scattered mild tree-in-bud opacities as can be seen with atypical infection, AB PA, airways disease, and aspiration. Emphysema and asbestos related pleural disease. Bladder wall thickening may be secondary to cystitis or chronic outlet obstruct ion from prostatomegaly.
[2024-05-29 18:42] VITALS: BP 141/83; PULSE 97; RESP 19; TEMP 36.6; O2SAT 99
--- NOTE | 2024-05-29 18:44 | ECG_ITS ---
Test Date: 2024-05-29 19:31:19 Measurements Intervals [place] Rate: 95 P: 78 [place]: 206 QRS: 80 QRSD: 178 T: -20 QT: 394 QTc: 495 Interpretive Statements SINUS RHYTHM RIGHT BUNDLE BRANCH BLOCK [120+ ms QRS DURATION, UPRIGHT V1, 40+ ms S IN I/aVL/V4/V5/V6] ST DEPRESSION, CONSIDER SUBENDOCARDIAL INJURY [0.1+ mV ST DEPRESSION] Compared to ECG 05/24/2024 22:32:54 First degree AV block no longer present Left-axis deviation no longer present ST (T wave) deviation still present Electronically Signed On 05-29-2024 22:35:25 [employer] MECHANIC by Nae Potts M.D.
--- NOTE | 2024-05-29 18:45 | ED.URI ---
HPI - URI/Sore Throat General Chief Complaint: Upper Respiratory Infection <Bijal Solorio PA-C - Last Filed: 05/29/24 18:47> Stated Complaint: pna, sx have not improved <Bijal Solorio PA-C - Last Filed: 05/29/24 18:47> Time Seen by Provider: 05/29/24 23:24 <Bijal Solorio PA-C - Last Filed: 05/29/24 18:47> Focused HPI: 80-year-old male presents to emergency department for abdominal pain, nausea, vomiting, generalized weakness and fatigue, productive cough. Patient was discharged from our facility on 05/26/2024 after being hospitalized for pneumonia. States he was discharged with antibiotics which he has been taking without improvement and in fact states they are making him sick. Also endorsing dysuria. GENERAL: Well-appearing, well-nourished, and in no acute distress. HEAD: Normocephalic, atraumatic. CHEST: Clear to auscultation. ?No respiratory distress. HEART: Regular rate and rhythm.? NEURO: ?Alert and oriented x3. Patient screened in triage and initial orders placed.? ?Additional care and disposition to be based upon?diagnostic testing and treatment. <Bijal Solorio PA-C - Last Filed: 05/29/24 18:47> Related Data Home Medications: Home Medications ?Medication ?Instructions ?Recorded ?Confirmed ?Last Taken ?Type atorvastatin 20 mg tablet 20 mg PO DAILY 10/16/21 05/25/24 05/07/23 21:00 History budesonide-formoterol HFA 160 2 puff inhalation BID 10/16/21 05/25/24 04/30/23 21:00 History mcg-4.5 mcg/actuation aerosol inhaler (Symbicort) bupropion HCl 150 mg tablet,12 hr 150 mg PO BID 10/16/21 05/25/24 05/07/23 21:00 History sustained-release doxazosin 4 mg tablet 4 mg PO DAILY 10/16/21 05/25/24 05/07/23 08:00 History gabapentin 300 mg capsule 600 mg PO DAILY 10/16/21 05/25/24 05/07/23 08:00 History isosorbide mononitrate 30 mg 30 mg PO DAILY 10/16/21 05/25/24 05/07/23 08:00 History tablet,extended release 24 hr Aspir-81 81 mg PO DAILY 05/09/23 05/25/24 05/07/23 08:00 History albuterol sulfate 90 mcg/actuation 2 puff inhalation PRN PRN Wheezing 05/09/23 05/25/24 Unknown History aerosol inhaler brimonidine 0.2 %-timolol 0.5 % 1 drp RIGHT EYE .COMPLEX 05/09/23 05/26/24 05/09/23 20:00 History eye drops (Combigan) latanoprost 0.005 % eye drops 1 drp RIGHT EYE HS 05/09/23 05/25/24 05/09/23 20:00 History omeprazole 40 mg capsule,delayed 40 mg PO DAILY 05/25/24 05/26/24 Unknown History release <Bijal Solorio PA-C - Last Filed: 05/29/24 18:47> Allergies/Adverse Reactions: Allergies Allergy/AdvReac Type Severity Reaction Status Date / Time No Known Allergies Allergy Mild Verified 05/14/23 00:03 <Bijal Solorio PA-C - Last Filed: 05/29/24 18:47> [facility] Past Medical History Medical History: Medical History Diverticular hemorrhage Acute blood loss anemia Colon, diverticulosis Rectal bleeding Sleep apnea Emphysema/COPD <Bijal Solorio PA-C - Last Filed: 05/29/24 18:47> Family History Family History: Family History (Updated 05/25/24 @ 04:37 by Jaimie Roman RN) Other Adopted <Bijal Solorio PA-C - Last Filed: 05/29/24 18:47> Social History Social History: Social History Smoking status: Former smoker Alcohol intake: never Substance use: never Substance use type: does not use Do You Feel Safe in your Home?: Yes Lack of Transportation: No Lack of Food: Never True Current Housing: I Have Housing Concerned About Future Housing: No Difficulty Paying Gas/Electric Bills: No Difficulty Paying for Meds: No Currently Unemployed: No Education: Trade/Vocational Certificate Difficulty w/ Childcare or Family Care: No Spiritual care concerns: No <Bijal Solorio PA-C - Last Filed: 05/29/24 18:47> Exam Narrative: GENERAL: Well-appearing, well-nourished, and in no acute distress. HEAD: Normocephalic, atraumatic. EYES: PERRLA and EOMI. ENT: Nares clear, no rhinorrhea or epistaxis. Mucous membranes moist. Oropharynx without tonsillar hypertrophy exudate or other lesions. NECK: Supple. No adenopathy or masses. CHEST: No respiratory distress. Adventitious breath sounds heard throughout the bases. 99% on room air. HEART: Regular rate and rhythm. No murmur heard. Normal peripheral pulses. ABDOMEN: Soft, nontender, nondistended, normal active bowel sounds. MSK: Normal range of motion. No edema. SKIN: Warm, dry, no rash. NEURO: Alert and oriented x4. No focal deficits. PSYCH: Normal mood and affect. <Wiley Sood PA-C - Last Filed: 05/30/24 02:58> Course Vital Signs Vital signs: Vital Signs Temperature 97.9 F 05/29/24 18:42 Pulse Rate 97 05/29/24 18:42 Respiratory Rate 19 05/29/24 18:42 Blood Pressure 141/83 H 05/29/24 18:42 Pulse Oximetry 99 05/29/24 18:42 Temperature 97.6 F 05/29/24 23:40 Pulse Rate 94 05/29/24 23:40 Respiratory Rate 20 05/29/24 23:40 Blood Pressure 156/99 H 05/29/24 23:40 Pulse Oximetry 95 05/29/24 23:40 <Bijal Solorio PA-C - Last Filed: 05/29/24 18:47> Vital Signs Temperature 97.9 F 05/29/24 18:42 Pulse Rate 97 05/29/24 18:42 Respiratory Rate 19 05/29/24 18:42 Blood Pressure 141/83 H 05/29/24 18:42 Pulse Oximetry 99 05/29/24 18:42 Temperature 97.6 F 05/29/24 23:40 Pulse Rate 94 05/29/24 23:40 Respiratory Rate 20 05/29/24 23:40 Blood Pressure 156/99 H 05/29/24 23:40 Pulse Oximetry 95 05/29/24 23:40 <Wiley Sood PA-C - Last Filed: 05/30/24 02:58> MDM - URI/Sore Throat MDM Narrative Medical decision making narrative: This is a 88-year-old male who presents to the ED for chief complaint of increasing cough after being discharged from the hospital 3 days ago. Vitals are normal. Exam remarkable for cough but patient is not in respiratory distress. EKG was sinus rhythm and no acute ischemic changes from previous total 05/24/2024 Lab work shows normal white count on CBC. CMP shows slightly elevated BUN and alk-phos. 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 Viral swabs negative. CTA chest abdomen pelvis IMPRESSION: No CT evidence of acute pulmonary embolus. Scattered mild tree-in-bud opacities as can be seen with atypical infection, ABPA, airways disease, and aspiration. Emphysema and asbestos related pleural disease. Bladder wall thickening may be secondary to cystitis or chronic outlet obstruction from prostatomegaly. Presentation consistent with pneumonia. He was started on Solu-Medrol, breathing treatments for COPD. Started on broad-spectrum antibiotics. Discussed the case with hospitalist Denisha SMALL who agrees to admit the patient to [facility]. Patient is understanding and agreeable with plan for admission at this time. Admitted in stable condition with normal vitals <Wiley Sood PA-C - Last Filed: 05/30/24 02:58> Lab Data Result diagrams: 05/29/24 19:36 05/29/24 19:36 <Bijal Solorio PA-C - Last Filed: 05/29/24 18:47> Labs: Lab Results 05/29/24 Range/Units 19:36 WBC 8.7 (4.5-10.0) K/mm3 RBC 4.59 L (4.6-6.20) M/mm3 Hgb 16.1 (14.0-18.0) g/dL Hct 47.6 (42.0-52.0) % MCV 103.7 H (80-100) fl MCH 35.1 H (26-34) pg MCHC 33.8 (32-36) g/dl RDW 13.1 (11.5-14.5) % Plt Count 240 (150-375) k/mm3 MPV 8.9 (7.4-10.4) fl Immature Gran % (Auto) 0.6 H (0-0.5) % Neut % (Auto) 74.7 H (45.5-73.1) % Lymph % (Auto) 9.7 L (18.3-44.2) % [place] % (Auto) 14.3 H (2.6-8.5) % Eos % (Auto) 0.5 (0-4.4) % Baso % (Auto) 0.2 (0.2-1.2) % Lymph # (Auto) 0.84 L (0.9-3.2) K/mm3 [place] # (Auto) 1.2 H (0.1-0.6) K/mm3 Eos # (Auto) 0.0 (0-0.3) K/mm3 Baso # (Auto) 0.0 (0.0-0.1) K/mm3 Abs Immat Gran (auto) 0.05 H (0.00-0.031) K/mm3 Absolute Neuts (auto) 6.5 (1.3-6.7) K/mm3 Absolute Nucleated RBC 0.000 (0.0-0.012) K/mm3 Nucleated RBC % 0.0 (0.0-0.2) % PT 13.9 (11.1-14.7) Seconds INR 1.0 APTT 38.8 H (22.3-36.8) Seconds Sodium 143 (137-145) mmol/L Potassium 4.2 (3.4-5.0) mmol/L Chloride 105 (98-107) mmol/L Carbon Dioxide 32 H (22-30) mmol/L Anion Gap 6 (4-12) mmol/L BUN 23 H (9-20) mg/dL Creatinine 1.10 (0.7-1.3) mg/dL Estim Creat Clear Calc Not Reportable Estimated GFR > 60 (59 - ) Glucose 99 (65-110) mg/dL Calcium 9.6 (8.4-10.2) mg/dL Total Bilirubin 1.0 (0.2-1.3) mg/dL AST 25 (17-59) U/L ALT 21 (6-50) U/L Alkaline Phosphatase 168 H (38-126) U/L Troponin I < 0.012 (0.000-0.034) ng/mL NT-Pro-B Natriuret Pep 451 H (19.9-100) pg/mL Total Protein 8.0 (6.3-8.2) g/dL Albumin 4.4 (3.5-5.1) g/dL Lipase 34 (23-300) U/L Influenza A (RT-PCR) Negative (Negative) Influenza B (RT-PCR) Negative (Negative) RSV (RT-PCR) Negative (Negative) SARS-CoV-2 RNA (RT-PCR) Negative (Negative) <Bijal Solorio PA-C - Last Filed: 05/29/24 18:47> Lab Results 05/29/24 Range/Units 19:36 WBC 8.7 (4.5-10.0) K/mm3 RBC 4.59 L (4.6-6.20) M/mm3 Hgb 16.1 (14.0-18.0) g/dL Hct 47.6 (42.0-52.0) % MCV 103.7 H (80-100) fl MCH 35.1 H (26-34) pg MCHC 33.8 (32-36) g/dl RDW 13.1 (11.5-14.5) % Plt Count 240 (150-375) k/mm3 MPV 8.9 (7.4-10.4) fl Immature Gran % (Auto) 0.6 H (0-0.5) % Neut % (Auto) 74.7 H (45.5-73.1) % Lymph % (Auto) 9.7 L (18.3-44.2) % [place] % (Auto) 14.3 H (2.6-8.5) % Eos % (Auto) 0.5 (0-4.4) % Baso % (Auto) 0.2 (0.2-1.2) % Lymph # (Auto) 0.84 L (0.9-3.2) K/mm3 [place] # (Auto) 1.2 H (0.1-0.6) K/mm3 Eos # (Auto) 0.0 (0-0.3) K/mm3 Baso # (Auto) 0.0 (0.0-0.1) K/mm3 Abs Immat Gran (auto) 0.05 H (0.00-0.031) K/mm3 Absolute Neuts (auto) 6.5 (1.3-6.7) K/mm3 Absolute Nucleated RBC 0.000 (0.0-0.012) K/mm3 Nucleated RBC % 0.0 (0.0-0.2) % PT 13.9 (11.1-14.7) Seconds INR 1.0 APTT 38.8 H (22.3-36.8) Seconds Sodium 143 (137-145) mmol/L Potassium 4.2 (3.4-5.0) mmol/L Chloride 105 (98-107) mmol/L Carbon Dioxide 32 H (22-30) mmol/L Anion Gap 6 (4-12) mmol/L BUN 23 H (9-20) mg/dL Creatinine 1.10 (0.7-1.3) mg/dL Estim Creat Clear Calc Not Reportable Estimated GFR > 60 (59 - ) Glucose 99 (65-110) mg/dL Calcium 9.6 (8.4-10.2) mg/dL Total Bilirubin 1.0 (0.2-1.3) mg/dL AST 25 (17-59) U/L ALT 21 (6-50) U/L Alkaline Phosphatase 168 H (38-126) U/L Troponin I < 0.012 (0.000-0.034) ng/mL NT-Pro-B Natriuret Pep 451 H (19.9-100) pg/mL Total Protein 8.0 (6.3-8.2) g/dL Albumin 4.4 (3.5-5.1) g/dL Lipase 34 (23-300) U/L Influenza A (RT-PCR) Negative (Negative) Influenza B (RT-PCR) Negative (Negative) RSV (RT-PCR) Negative (Negative) SARS-CoV-2 RNA (RT-PCR) Negative (Negative) <Wiley Sood PA-C - Last Filed: 05/30/24 02:58> ECG Data EKG #1: ECG completion date: 05/29/24 <Wiley Sood PA-C - Last Filed: 05/30/24 02:58> ECG completion time: 19:31 <Wiley Sood PA-C - Last Filed: 05/30/24 02:58> Prior ECG tracings: available for review <Wiley Sood PA-C - Last Filed: 05/30/24 02:58> Interpretation: A sinus rhythm Rate 95 Left bundle branch block No STEMI Appears similar from ECG 05/24/2024 <Wiley Sood PA-C - Last Filed: 05/30/24 02:58> Discharge Plan Discharge Clinical Impression: Emphysema/COPD Pneumonia Qualifiers: Pneumonia type: due to unspecified organism Laterality: left Lung location: lower lobe of lung Qualified Code(s): J18.9 - Pneumonia, unspecified organism <Bijal Solorio PA-C - Last Filed: 05/29/24 18:47> Patient Disposition: Still a Patient <MARGIE Greene Last Filed: 05/29/24 18:47> Condition: Stable <Bijal Solorio PA-C - Last Filed: 05/29/24 18:47> Instructions: Antibiotic Form <MARGIE Greene Last Filed: 05/29/24 18:47> Patient Language: Mongolian <MARGIE Greene Last Filed: 05/29/24 18:47> Prescriptions: No Action bupropion HCl 150 mg tablet sustained-release 12 hr 150 mg PO BID atorvastatin 20 mg tablet 20 mg PO DAILY isosorbide mononitrate 30 mg tablet extended release 24 hr 30 mg PO DAILY gabapentin 300 mg capsule 600 mg PO DAILY doxazosin 4 mg tablet 4 mg PO DAILY budesonide-formoterol [Symbicort] 160-4.5 mcg/actuation HFA aerosol inhaler 2 puff inhalation BID Aspir-81 81 mg PO DAILY latanoprost 0.005 % drops 1 drp RIGHT EYE HS albuterol sulfate 90 mcg/actuation HFA aerosol inhaler 2 puff INHALATION PRN PRN (Reason: Wheezing) brimonidine-timolol [Combigan] 0.2-0.5 % drops 1 drp RIGHT EYE .COMPLEX Rx Instructions: 1 drp into right eye at 0900 and 1200; omeprazole 40 mg capsule,delayed release(DR/EC) 40 mg PO DAILY cefdinir 300 mg capsule 300 mg PO Q12H 5 Days Qty: 10 0RF doxycycline hyclate 100 mg capsule 100 mg PO BID 5 Days Qty: 10 0RF <Bijal Solorio PA-C - Last Filed: 05/29/24 18:47> Follow-up/Referrals: Randy,Irwin Black MD [Primary Care Provider] - <Bijal Solorio PA-C - Last Filed: 05/29/24 18:47>
--- NOTE | 2024-05-29 19:43 | ECG_ITS ---
Test Date: 2024-05-29 20:01:18 Measurements Intervals [place] Rate: 90 P: 78 DC: 212 QRS: 95 QRSD: 174 T: -19 QT: 390 QTc: 479 Interpretive Statements SINUS RHYTHM WITH FIRST DEGREE AV BLOCK RIGHT BUNDLE BRANCH BLOCK [120+ ms QRS DURATION, UPRIGHT V1, 40+ ms S IN I/aVL/V4/V5/V6] ST DEPRESSION, CONSIDER SUBENDOCARDIAL INJURY [0.1+ mV ST DEPRESSION] Compared to ECG 05/29/2024 19:31:19 First degree AV block now present Myocardial infarct finding no longer present ST (T wave) deviation still present Electronically Signed On 05-29-2024 22:33:21 [employer] OFFICER by Nae Potts M.D.
[2024-05-29 19:45] LABS: Basophils Percent Auto 0.2 % (0.2-1.2); Eosinophils Percent Auto 0.5 % (0-4.4); Hematocrit 47.6 % (42.0-52.0); Hemoglobin 16.1 g/dL (14.0-18.0); Immature Granulocyte Absolute 0.05 K/mm3 (0.00-0.031); Immature Granulocyte Percent A 0.6 % (0-0.5); Lymphocytes Absolute Auto 0.84 K/mm3 (0.9-3.2); Lymphocytes Percent Auto 9.7 % (18.3-44.2); Mean Corpuscular HGB Conc 33.8 g/dl (32-36); Mean Corpuscular Hemoglobin 35.1 pg (26-34); Mean Corpuscular Volume 103.7 fl (80-100); Mean Platelet Volume 8.9 fl (7.4-10.4); Monocytes Absolute Auto 1.2 K/mm3 (0.1-0.6); Monocytes Percent Auto 14.3 % (2.6-8.5); Neutrophils Absolute Auto 6.5 K/mm3 (1.3-6.7); Neutrophils Percent Auto 74.7 % (45.5-73.1); Platelet Count Result 240 k/mm3 (150-375); Red Blood Count 4.59 M/mm3 (4.6-6.20); Red Cell Distribution Width 13.1 % (11.5-14.5); White Blood Count 8.7 K/mm3 (4.5-10.0)
[2024-05-29 19:54] LABS: Prothrombin Time 13.9 Seconds (11.1-14.7)
[2024-05-29 19:55] LABS: Partial Thromboplastin Time 38.8 Seconds (22.3-36.8)
[2024-05-29 20:00] LABS: Alanine Aminotransferase 21 U/L (6-50); Albumin Level 4.4 g/dL (3.5-5.1); Alkaline Phosphatase 168 U/L (38-126); Anion Gap 6 mmol/L (4-12); Aspartate Amino Transferase 25 U/L (17-59); Blood Urea Nitrogen 23 mg/dL (9-20); Calcium 9.6 mg/dL (8.4-10.2); Carbon Dioxide 32 mmol/L (22-30); Chloride 105 mmol/L (98-107); Estimated Glomerular Filt Rate > 60; Glucose 99 mg/dL (65-110); Lipase 34 U/L (23-300); Potassium 4.2 mmol/L (3.4-5.0); Sodium 143 mmol/L (137-145)
[2024-05-29 20:08] LABS: NT Pro B Type Natriuretic Pept 451 pg/mL (19.9-100)
[2024-05-29 20:11] LABS: Troponin I < 0.012 ng/mL (0.000-0.034)
[2024-05-29 20:20] LABS: Influenza A QL RT-PCR Negative (Negative); Influenza B QL RT-PCR Negative (Negative); RSV RNA, RT-PCR Negative (Negative); SARS-CoV-2 RNA PCR Negative (Negative)
[2024-05-29 23:40] VITALS: BP 156/99; PULSE 94; RESP 20; TEMP 36.4; O2SAT 95
[2024-05-30] VITALS (9 sets, daily range): BP systolic 127–156; BP diastolic 51–96; PULSE 69–94; RESP 15–18; TEMP 36.4–36.7; O2SAT 91–99; BMI 22.3
[2024-05-30] MEDS: methylPREDNISolone SOD SUCC 125 MG VIAL IV PUSH (00:11)
[2024-05-30] MEDS: IPRATROPIUM 0.5 MG/ALBUTEROL SULFATE 2.5 MG AMPUL.NEB 3 ML INHALATION ×3 (00:11→21:55)
[2024-05-30] MEDS: AZITHROMYCIN 500 MG/NS 250 ML 500 MG/250 ML BAG 250 MG IVPB (03:17)
[2024-05-30 04:13] LABS: Add Urine Microscopic? YES; Appearance Urine Clear (Clear); Bacteria Urine None Seen /hpf; Bilirubin Urine Negative (Negative); Blood Urine Non-Hemolyzed Trace (Negative); Color Urine Yellow (Yellow); Glucose Urine UA Negative (Negative); Ketones Urine 3+ mg/dL (Negative); Leukocyte Esterase Ur Negative LEU/UL (Negative); Need Manual Microscopic Reviewed; Nitrate Urine Negative (Negative); Non Pathogenic Casts 0-2; Protein Urine 2+ mg/dL (Negative); Specific Grav Ur > 1.045 (1.001-1.035); Squamous Epithelial Cell Urine None Seen /hpf (Few); WBC Urine 21-50 /hpf (0-3); pH Urine 5.5 (5.0-9.0)
--- NOTE | 2024-05-30 06:16 | ADMGEN ---
This patient, Rogerio Vivar, was admitted to [address] [place] [address] Room 321-02 at 06:15. Patient/family oriented to hospital policies and general routines including ID bracelet, bed and alarms, visiting hours, pain management, procedures, bathroom and other care routines, personal items, smoking policy, room service/diet, and visiting hours. Information on how to activate the Rapid Response Team has been discussed. Patient/Family are encouraged to report perceived risks to care and to ask questions if they do not understand what they are told or what they should do.
--- NOTE | 2024-05-30 07:26 | PM.IMHP ---
H&P: HPI History of Present Illness Date/Time: 05/30/24 07:26 Chief Complaint: Cough Narrative: 88yo male with MARK, COPD and who was recently discharged from [facility] for PNA returns to the ED for cough. Patient was hospitalized for SOB, cough and fever on 05/24/24 and found to have LLL airspace consolidation with normal WBC. No fevers documented. Covid, RSV and influenza negative. BCx were no growth. EKG changes noted but Troponin negative x3. He remained on room air throughout his hospital course. He was treated with Rocephin and Azithromycin and was discharged on 05/26/24 on cefdinir and doxycycline. Since discharge, he has been compliant with the medications but he has not seen any improvement and feels the abx are making him ill. Patient states the medications cause nausea. Patient continues to have a dry cough with occasional post tussive emesis. He has been wheezing but this is chronic without much change. No fevers. He ?always? feels short of breath due to his emphysema. He has noted increasing dyspnea on exertion and a frontal headache. He also has chronic sinus issues with postnasal drainage. No ear pain but is hard of hearing. 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 He has been having abdominal pain related to coughing. No hematuria but does complain of dysuria. He has difficulty walking and feels diffusely weak. 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 No pedal edema. He has been having chest pain that lasts about 30 minutes and radiates to left arm. He has had this ?forever? and he has had extensive workup in the past for this. This been no change in the chronicity or the character of the chest pain over the past week or so. He presented to the emergency room for further evaluation. In the ED, patient had stable vital signs. No hypoxia, tachycardia or fever. CBC normal. Macrocytosis noted. CMP was essentially normal. BNP 451. Troponin negative x1. UA showing pH >1.045, 2+ protein, 3+ ketones, 6-10 RBC and 21-50 WBC. Covid, RSV and influenza PCR negative. CTA Ch/A/P showing no PE but scattered tree-in-bud opacities, emphysema ans asbestos related pleural disease. Also with bladder wall thickening, consider cystitis or chronic outlet obstruction. He was treated with Solu-Medrol 125mg IV once, DuoNeb once and resumed on Rocephin and Azithromycin. He was admitted for further care. Review of Systems Review of Systems: All systems reviewed & are unremarkable except as noted in HPI and below PMFSH Past Medical History Medical History (Updated 05/30/24 @ 12:49 by Moshe Winters MD) PAD (peripheral artery disease) Glaucoma Hard of hearing Legally blind Diverticular hemorrhage Acute blood loss anemia Colon, diverticulosis Rectal bleeding Sleep apnea Emphysema/COPD Surgical History Surgical History (Updated 05/30/24 @ 12:32 by Moshe Winters MD) History of cholecystectomy History of cervical spinal surgery H/O carotid endarterectomy Family History Family History Other Adopted Social History Social History (Updated 05/30/24 @ 12:33 by Moshe Winters MD) Social History: Quit smoking about 50 years ago after smoking pack a day for about 25 years. No alcohol or drug use. Lives alone. Surrogate decision maker -Nina (friend) Code status -full Smoking status: Former smoker Tobacco type: cigarettes Alcohol intake: never Substance use: never Substance use type: does not use Do You Feel Safe in your Home?: Yes Lack of Transportation: No Lack of Food: Never True Current Housing: I Have Housing Concerned About Future Housing: No Difficulty Paying Gas/Electric Bills: No Difficulty Paying for Meds: No Currently Unemployed: No Education: Trade/Vocational Certificate Difficulty w/ Childcare or Family Care: No Living arrangements: alone Occupation/Education: retired Gender identity (if verbalized by the patient): Male Spiritual care concerns: No Meds Home Medications and Allergies Home Medications ?Medication ?Instructions ?Recorded ?Confirmed ?Type atorvastatin 20 mg tablet 20 mg PO DAILY 10/16/21 05/30/24 History budesonide-formoterol HFA 160 2 puff inhalation BID 10/16/21 05/30/24 History mcg-4.5 mcg/actuation aerosol inhaler (Symbicort) bupropion HCl 150 mg tablet,12 hr 150 mg PO BID 10/16/21 05/30/24 History sustained-release doxazosin 4 mg tablet 4 mg PO DAILY 10/16/21 05/30/24 History gabapentin 300 mg capsule 600 mg PO DAILY 10/16/21 05/30/24 History isosorbide mononitrate 30 mg 30 mg PO DAILY 10/16/21 05/30/24 History tablet,extended release 24 hr Aspir-81 81 mg PO DAILY 05/09/23 05/30/24 History albuterol sulfate 90 mcg/actuation 2 puff inhalation PRN PRN Wheezing 05/09/23 05/30/24 History aerosol inhaler brimonidine 0.2 %-timolol 0.5 % 1 drp RIGHT EYE .COMPLEX 05/09/23 05/30/24 History eye drops (Combigan) latanoprost 0.005 % eye drops 1 drp RIGHT EYE HS 05/09/23 05/30/24 History omeprazole 40 mg capsule,delayed 40 mg PO DAILY 05/25/24 05/30/24 History release cefdinir 300 mg capsule 300 mg PO Q12H 5 days #10 caps 05/26/24 05/30/24 Rx doxycycline hyclate 100 mg capsule 100 mg PO BID 5 days #10 caps 05/26/24 05/30/24 Rx gabapentin 600 mg tablet 600 mg PO HS 05/30/24 05/30/24 History Allergies Allergy/AdvReac Type Severity Reaction Status Date / Time No Known Allergies Allergy Mild Verified 05/14/23 00:03 Vital Signs Vital Signs - 24 hr 05/29/24 18:42 05/29/24 23:40 05/30/24 02:57 Temperature 97.9 F 97.6 F Pulse Rate 97 94 82 Respiratory Rate 19 20 15 Blood Pressure 141/83 H 156/99 H 156/96 H Pulse Oximetry 99 95 93 Oxygen Delivery 05/30/24 06:17 05/30/24 07:00 Temperature 97.8 F Pulse Rate 94 Respiratory Rate 16 Blood Pressure 127/76 Pulse Oximetry 99 Oxygen Delivery Room Air Exam Narrative: AF 97.8 127/76 94 16 99% ra Gen - well appearing male in no acute respiratory distress who is nontoxic-appearing lying semi recumbent in bed HEENT - normocephalic. Atraumatic. Pupils equal round and mildly reactive. Oropharynx was clear. No oral lesions. Moist mucous membranes. Palate johnna symmetrically. No facial asymmetry. Neck - neck was supple. No dominant adenopathy, thyromegaly or masses. Old left CEA scar noted Chest - lungs with scattered end expiratory wheeze diffusely, nml RR, no converstaional dyspnea CV - heart was regular rate and rhythm. S1-S2. No murmurs Abd - abdomen was soft. Mild diffuse tenderness but no guarding or focal pain. Positive bowel sounds. No organomegaly or masses. Ext - no clubbing, cyanosis or edema. 2+ DP pulses bilaterally. Neuro - patient is alert and appropriate. Strength is 5-/5 in both upper and lower extremities. Cranial nerves 2-12 are intact. Speech is clear. Truncal instability noted when sitting at the side of bed. Rt hand tremor Psych - normal mood and affect. Patient is pleasant and cooperative. Skin - warm and dry. No rashes noted. H&P: Results Labs Labs: Short CBC 05/29/24 Range/Units 19:36 WBC 8.7 (4.5-10.0) K/mm3 Hgb 16.1 (14.0-18.0) g/dL Hct 47.6 (42.0-52.0) % Plt Count 240 (150-375) k/mm3 BMP 05/29/24 19:36 Sodium 143 Potassium 4.2 Chloride 105 Carbon Dioxide 32 H BUN 23 H Creatinine 1.10 Glucose 99 Calcium 9.6 Cardiac Enzymes 05/29/24 Range/Units 19:36 Troponin I < 0.012 (0.000-0.034) ng/mL Liver Function 05/29/24 Range/Units 19:36 Total Bilirubin 1.0 (0.2-1.3) mg/dL AST 25 (17-59) U/L ALT 21 (6-50) U/L Alkaline Phosphatase 168 H (38-126) U/L Albumin 4.4 (3.5-5.1) g/dL Urine 05/30/24 Range/Units 02:56 Urine Color Yellow (Yellow) Urine Appearance Clear (Clear) Urine pH 5.5 (5.0-9.0) Ur Specific [place] > 1.045 H (1.001-1.035) Urine Protein 2+ H (Negative) mg/dL Urine Glucose (UA) Negative (Negative) mg/dL Assessment and Plan Assessment and plan (1) Pneumonia: Qualifiers: Laterality: left Lung location: lower lobe of lung Pneumonia type: due to unspecified organism Qualified Code(s): J18.9 - Pneumonia, unspecified organism Code(s): J18.9 - Pneumonia, unspecified organism Status: Acute Assessment and Plan: Patient presents back to the ED for persistent cough and SOB. CT Ch showing no PE but emphysematous changes, scattered tree-in-bud opacities and a thin web in the mid trachea. Differential noted. Will check for pertussis and other atypical infections. Speech therapy to evaluate. Sputum Cx ordered. BCx from last admission negative. (2) Emphysema/COPD: Code(s): J43.9 - Emphysema, unspecified Status: Acute Assessment and Plan: CTA chest as above. Hx of smoking but also consider other etiologies for his lung scarring/emphysema. Treated with Yuliya-Medrol once in ED. Will continue Prednisone. Continue DuoNebs. Resume Symbicort (3) Abnormal EKG: Code(s): R94.31 - Abnormal electrocardiogram [ECG] [EKG] Status: Acute Assessment and Plan: EKG showing Rt BBB, ST depression. Troponin negative x3 last admission and x1 this admission. Repeat Troponin. Check Echo. (4) Sleep apnea: Code(s): G47.30 - Sleep apnea, unspecified Status: Acute Assessment and Plan: Resume NIV (5) Debility: Code(s): R53.81 - Other malaise Status: Acute Assessment and Plan: Patient with diffuse weakness and evidence of truncal instability with neuropathy. Not an alcoholic. Will check B12, etc. Check brain MRI PT/OT Plan DVT prophylaxis - Lovenox Code status - full Hospitalist MIPS Advance Care Plan I have confirmed that the patient's Advanced Care Plan is present, code status is documented, or surrogate decision maker is listed in patient medical record.: Yes Medication Reconciliation I have utilized all available resources to obtain, update and review the patients current medications (includes all prescriptions, OTC, herbals, cannabis, and nutritional supplements).: Yes
[2024-05-30 07:53] LABS: Glucose Point of Care 143 mg/dl (65-105)
[2024-05-30 11:39] LABS: Glucose Point of Care 136 mg/dl (65-105)
[2024-05-30 15:30] LABS: Troponin I < 0.012 ng/mL (0.000-0.034)
[2024-05-30 15:36] LABS: Vitamin D 25 Hydroxy 48.6 ng/mL
[2024-05-30 16:24] LABS: Folic Acid 7.7 ng/mL (2.76->20)
--- NOTE | 2024-05-30 16:27 | PM.CNPUL ---
History of Present Illness History of Present Illness Consult date: 06/01/24 Requesting physician: Wiley Sood PA-C Chief complaint: PNA Narrative: Patient was seen Jun 01, 2024 at 23:30 Room 321 NEW: Rogerio Vivar is an 88 year old man recently in the hospital for COPD, was admitted 05/24/24 with LLL infiltrate; he was treated with Rocephin and Azithromycin. he had an PT OT evaluation, was ok to go home on 05/26 eating and drinking at baseline, sent home on Cefdinir and Doxycycline for 5 more days. he returned 05/29 with abdominal painm N/V, weakness and fatigue with cough productive of sputum. He said that the antibiotics made him feel worse. PMH: acute blood loss anemia, colon diverticulosis, diverticular hemorrhage, rectal bleeding, emphysema / COPD, sleep apnea who presented to the ER for evaluation of dark maroon stools DATA * Chest/Abdomen/Pelvis CTA 05/29/24 21:18 IMPRESSION: No CT evidence of acute pulmonary embolus. Scattered mild tree-in-bud opacities as can be seen with atypical infection, ABPA, airways disease, and aspiration. Emphysema and asbestos related pleural disease. Bladder wall thickening may be secondary to cystitis or chronic outlet obstruction from prostatomegaly. Modified Barium Swallow 05/31/24 09:31 IMPRESSION: 1. Normal modified barium swallow. 2. Please refer to the speech therapy report for recommendations. [facility] Past Medical History Medical History (Updated 05/30/24 @ 12:49 by Moshe Winters MD) PAD (peripheral artery disease) Glaucoma Hard of hearing Legally blind Diverticular hemorrhage Acute blood loss anemia Colon, diverticulosis Rectal bleeding Sleep apnea Emphysema/COPD Surgical History Surgical History (Updated 05/30/24 @ 12:32 by Moshe Winters MD) History of cholecystectomy History of cervical spinal surgery H/O carotid endarterectomy Family History Family History Other Adopted Social History Social History (Updated 05/30/24 @ 12:33 by Moshe Winters MD) Social History: Quit smoking about 50 years ago after smoking pack a day for about 25 years. No alcohol or drug use. Lives alone. Surrogate decision maker -Nina (friend) Code status -full Smoking status: Former smoker Tobacco type: cigarettes Alcohol intake: never Substance use: never Substance use type: does not use Do You Feel Safe in your Home?: Yes Lack of Transportation: No Lack of Food: Never True Current Housing: I Have Housing Concerned About Future Housing: No Difficulty Paying Gas/Electric Bills: No Difficulty Paying for Meds: No Currently Unemployed: No Education: Trade/Vocational Certificate Difficulty w/ Childcare or Family Care: No Living arrangements: alone Occupation/Education: retired Gender identity (if verbalized by the patient): Male Spiritual care concerns: No Meds Home Medications and Allergies Home Medications ?Medication ?Instructions ?Recorded ?Confirmed ?Type atorvastatin 20 mg tablet 20 mg PO DAILY 10/16/21 05/30/24 History budesonide-formoterol HFA 160 2 puff inhalation BID 10/16/21 05/30/24 History mcg-4.5 mcg/actuation aerosol inhaler (Symbicort) bupropion HCl 150 mg tablet,12 hr 150 mg PO BID 10/16/21 05/30/24 History sustained-release doxazosin 4 mg tablet 4 mg PO DAILY 10/16/21 05/30/24 History gabapentin 300 mg capsule 600 mg PO DAILY 10/16/21 05/30/24 History isosorbide mononitrate 30 mg 30 mg PO DAILY 10/16/21 05/30/24 History tablet,extended release 24 hr Aspir-81 81 mg PO DAILY 05/09/23 05/30/24 History albuterol sulfate 90 mcg/actuation 2 puff inhalation PRN PRN Wheezing 05/09/23 05/30/24 History aerosol inhaler brimonidine 0.2 %-timolol 0.5 % 1 drp RIGHT EYE .COMPLEX 05/09/23 05/30/24 History eye drops (Combigan) latanoprost 0.005 % eye drops 1 drp RIGHT EYE HS 05/09/23 05/30/24 History omeprazole 40 mg capsule,delayed 40 mg PO DAILY 05/25/24 05/30/24 History release cefdinir 300 mg capsule 300 mg PO Q12H 5 days #10 caps 05/26/24 05/30/24 Rx doxycycline hyclate 100 mg capsule 100 mg PO BID 5 days #10 caps 05/26/24 05/30/24 Rx gabapentin 600 mg tablet 600 mg PO HS 05/30/24 05/30/24 History Allergies Allergy/AdvReac Type Severity Reaction Status Date / Time No Known Allergies Allergy Mild Verified 05/14/23 00:03 Vital Signs Vital Signs - 24 hr 05/29/24 18:42 05/29/24 23:40 05/30/24 02:57 Temperature 36.6 C 36.4 C Pulse Rate 97 94 82 Respiratory Rate 19 20 15 Blood Pressure 141/83 H 156/99 H 156/96 H Pulse Oximetry 99 95 93 Oxygen Delivery 05/30/24 06:17 05/30/24 07:00 05/30/24 08:00 Temperature 36.6 C Pulse Rate 94 Respiratory Rate 16 Blood Pressure 127/76 Pulse Oximetry 99 Oxygen Delivery Room Air Room Air 05/30/24 13:25 05/30/24 13:25 05/30/24 13:35 Temperature Pulse Rate 82 82 83 Respiratory Rate 18 18 18 Blood Pressure Pulse Oximetry 96 Oxygen Delivery Room Air Results Laboratory Findings 06/01/24 07:37 06/01/24 07:37 ABG, PT/INR, D-dimer: PT/INR, D-dimer PT 13.9 Seconds (11.1-14.7) 05/29/24 19:36 INR 1.0 05/29/24 19:36 Abnormal lab findings: Abnormal Labs 05/29/24 05/30/24 05/30/24 19:36 02:56 07:49 RBC 4.59 L MCV 103.7 H MCH 35.1 H Immature Gran % (Auto) 0.6 H Neut % (Auto) 74.7 H Lymph % (Auto) 9.7 L [place] % (Auto) 14.3 H Lymph # (Auto) 0.84 L [place] # (Auto) 1.2 H Abs Immat Gran (auto) 0.05 H APTT 38.8 H Carbon Dioxide 32 H BUN 23 H POC Capillary Glucose 143 H Alkaline Phosphatase 168 H NT-Pro-B Natriuret Pep 451 H Ur Specific [place] > 1.045 H Urine Protein 2+ H Urine Ketones 3+ H Urine RBC 6-10 H Urine WBC 21-50 H 05/30/24 11:28 RBC MCV MCH Immature Gran % (Auto) Neut % (Auto) Lymph % (Auto) [place] % (Auto) Lymph # (Auto) [place] # (Auto) Abs Immat Gran (auto) APTT Carbon Dioxide BUN POC Capillary Glucose 136 H Alkaline Phosphatase NT-Pro-B Natriuret Pep Ur Specific [place] Urine Protein Urine Ketones Urine RBC Urine WBC
[2024-05-30] MEDS: predniSONE 20 MG TABLET 40 MG PO (17:12)
[2024-05-30] MEDS: ENOXAPARIN 40 MG/0.4 ML SYRINGE SUB-Q (17:13)
[2024-05-30] MEDS: BRIMONIDINE TARTRATE 0.2% OP SOLN 5 ML BTL 1 DROP RIGHT EYE (17:13)
[2024-05-30] MEDS: buPROPion HCL SR (12 HR) 150 MG TAB PO (17:13)
[2024-05-30] MEDS: TIMOLOL MALEATE 0.5% OP SOLN 5 ML BOTTLE 1 DROP RIGHT EYE (17:13)
[2024-05-30 18:40] LABS: MRSA (PCR) NOT DETECTED (NOT DETECTE)
[2024-05-30] MEDS: GABAPENTIN 300 MG CAPSULE 600 MG PO (20:39)
[2024-05-30] MEDS: FLUTICASONE PROPIONATE 0.05% NA SPR 16 GM BTL (*BKC) 2 SPRAY NASAL (20:39)
[2024-05-30] MEDS: LATANOPROST 0.005% OP SOLN 2.5 ML BTL 1 DROP RIGHT EYE (20:40)
[2024-05-30] MEDS: FLUTICASONE/SALMETEROL 115-21 MCG INHALER 1 PUFF 2 PUFF INHALATION (21:55)
[2024-05-31] VITALS (10 sets, daily range): BP systolic 102–151; BP diastolic 61–78; PULSE 73–82; RESP 18–20; TEMP 36.1–36.8; O2SAT 92–99
--- NOTE | 2024-05-31 | ECHO_ITS ---
Patient Info Name: Rogerio Vivar Age: 88 years : 1935 Gender: Male Ht: 71 in Wt: 160 lbs BSA: 1.91 m2 HR: 80 bpm BP: 151 / 72 mmHg Technical Quality: Fair Exam Date: 05/31/2024 11:01 AM Exam Location: Echo Lab Patient Status: Inpatient Admit Date: 05/30/2024 Staff Ordering Physician: Moshe Winters MD Racetrack Steward: Fortunato Ibrahim RDCS Attending Provider: Cory Galvez MD Exam Type: CA echo doppler color flow Study Info Indications R94.31 - Abnormal electrocardiogram ECG EKG R06.02 - Shortness of breath Complete two-dimensional, color flow and Doppler transthoracic echocardiogram is performed. Summary 1. Complete two-dimensional, color flow and Doppler transthoracic echocardiogram is performed. 2. Left ventricular chamber dimension is decreased. 3. Left ventricular systolic function is hyperdynamic, estimated at 65-70%. 4. There is mildly increased left ventricular wall thickness. 5. Left ventricular wall motion is normal. 6. The left ventricular diastolic function is grade I diastolic dysfunction. 7. The aortic valve appears to be bicuspid. 8. There is no aortic valve stenosis. 9. Right ventricular chamber dimension is normal. 10. Right ventricular systolic function is normal. 11. There is mild tricuspid valve regurgitation. 12. No pulmonary hypertension, estimated pulmonary arterial systolic pressure is 23 mmHg. 13. Normal inferior vena cava with >50% collapse upon inspiration consistent with normal right atrial pressure, 3 mmHg. Left Ventricle Left ventricular chamber dimension is decreased. Left ventricular systolic function is hyperdynamic, estimated at 65-70%. There is mildly increased left ventricular wall thickness. Left ventricular wall motion is normal. The left ventricular diastolic function is grade I diastolic dysfunction. Right Ventricle Right ventricular chamber dimension is normal. Right ventricular systolic function is normal. Left Atria Left atrial chamber dimension is normal. Right Atria Right atrial chamber dimension is normal. Aortic Valve The aortic valve appears to be bicuspid. There is no aortic valve sclerosis. There is no aortic valve stenosis. There is no aortic valve regurgitation. Pulmonic Valve The pulmonic valve is normal. There is no pulmonic valve stenosis. There is no pulmonic regurgitation. Mitral Valve The mitral valve has normal leaflets. There is no mitral valve stenosis. There is no mitral valve regurgitation. Tricuspid Valve The tricuspid valve leaflets are normal. There is no significant tricuspid valve stenosis. There is mild tricuspid valve regurgitation. No pulmonary hypertension, estimated pulmonary arterial systolic pressure is 23 mmHg. Pericardium/Pleural The pericardium appears normal. There is no pericardial effusion. Inferior Vena Cava Normal inferior vena cava with >50% collapse upon inspiration consistent with normal right atrial pressure, 3 mmHg. Aorta The aortic root size at the sinus of Valsalva is normal. The prox ascending aorta size is normal. Left Ventricular Outflow Tract Name Value Normal LVOT 2D LVOT Diameter 1.9 cm LVOT Doppler LVOT Peak Gradient 5 mmHg LVOT Mean Gradient 2 mmHg LVOT VTI 20 cm LVOT VTI/AV VTI Ratio 0.9 LVOT Stroke Volume 56 ml LVOT CO 4.2 l/min LVOT CI 2.2 l/min/m2 Pulmonic Valve Name Value Normal PV Doppler PV Peak Gradient 2 mmHg Mitral Valve Name Value Normal MV Doppler MV Decel Hood 360 cm/s2 MV PHT 43 ms MV Area (PHT) 5.2 cm2 4.0-5.0 MV Diastolic Function MV E Peak Velocity 53 cm/s MV A Peak Velocity 93 cm/s MV E/A 0.6 MV Decel Time 147 ms Tricuspid Valve Name Value Normal TV Regurgitation Doppler TR Peak Velocity 225 cm/s TR Peak Gradient 20 mmHg Estimated PAP/RSVP RA Pressure 3 mmHg <=5 PA Systolic Pressure 23 mmHg <36 RV Systolic Pressure 23 mmHg <36 Aorta Name Value Normal Ascending Aorta Ao Root Diameter (MM) 3.4 cm Ao Root Diam Index (MM) 1.8 cm/m2 Aortic Valve Name Value Normal AV Doppler AV Peak Velocity 153 cm/s AV Peak Gradient 9 mmHg AV Mean Gradient 4 mmHg AV VTI 22 cm AV Area (Cont Eq VTI) 2.6 cm2 >=3.0 AV Area (Cont Eq Germán) 1.9 cm2 AV Regurgitation 2D LVOT Area 2.7 cm2 Ventricles Name Value Normal LV Dimensions 2D/MM IVS Diastolic Thickness (2D) 0.9 cm 0.6-1.0 IVS Diastole Thickness (MM) 1.2 cm 0.6-1.0 LVID Diastole (2D) 3.8 cm 4.2-5.8 LVID Diastole (MM) 3.1 cm 4.2-5.8 LVIW Diastolic Thickness (2D) 1.0 cm 0.6-1.0 LVIW Diastolic Thickness (MM) 1.3 cm 0.6-1.0 LVID Systole (2D) 1.9 cm 2.5-4.0 LVID Systole (MM) 1.8 cm 2.5-4.0 LVOT Diameter 1.9 cm LV Mass (2D Cubed) 100.28 g 88.00-224.00 LV Mass Index (2D Cubed) 53 g/m2 49-115 Relative Wall Thickness (2D) 0.50 LV Mass (MM Cubed) 125.79 g 88.00-224.00 LV Mass Index (MM Cubed) 66 g/m2 49-115 Relative Wall Thickness (MM) 0.86 LV Fractional Shortening/Ejection Fraction 2D/MM LV Fractional Shortening (2D) 50 % 25-43 LV Fractional Shortening (MM) 43 % 25-43 LV EF (MM Teicholz) 76 % 52-72 LV EF (2D Teicholz) 82 % 52-72 LV Diastolic Volume (4C MOD) 26 ml LV EF (4C MOD) 53 % LV Diastolic Volume (2C MOD) 16 ml LV EF (2C MOD) 44 % LV Diastolic Volume (BP MOD) 21 ml 62-150 LV Diastolic Volume Index (BP MOD) 11 ml/m2 34-74 LV Systolic Volume (BP MOD) 11 ml 21-61 LV Systolic Volume Index (BP MOD) 6 ml/m2 11-31 LV EF (BP MOD) 47 % 52-72 LV Diastolic Length (4C) 7.3 cm LV Systolic Length (4C) 6.9 cm LV Stroke Volume (4C MOD) 13 ml Atria Name Value Normal LA Dimensions LA Dimension (MM) 4.0 cm 3.0-4.1 LA Volume (4C A-L) 16 ml RA Dimensions RA Area (4C) 13.7 cm2 <=18.0 Report Signatures
[2024-05-31] MEDS: AZITHROMYCIN 500 MG/NS 250 ML 500 MG/250 ML BAG 250 MG IVPB (02:06)
[2024-05-31] MEDS: IPRATROPIUM 0.5 MG/ALBUTEROL SULFATE 2.5 MG AMPUL.NEB 3 ML INHALATION ×3 (08:36→20:57)
[2024-05-31] MEDS: FLUTICASONE/SALMETEROL 115-21 MCG INHALER 1 PUFF 2 PUFF INHALATION ×2 (08:38→20:58)
[2024-05-31] MEDS: DOXAZOSIN MESYLATE 4 MG TABLET PO (09:45)
[2024-05-31] MEDS: predniSONE 20 MG TABLET 40 MG PO (09:45)
[2024-05-31] MEDS: ASPIRIN 81 MG CHEWABLE TABLET PO (09:45)
[2024-05-31] MEDS: buPROPion HCL SR (12 HR) 150 MG TAB PO ×2 (09:45→17:41)
[2024-05-31] MEDS: PANTOPRAZOLE 40 MG TABLET PO (09:45)
[2024-05-31] MEDS: ISOSORBIDE MONONITRATE 30 MG TAB.ER.24H PO (09:45)
[2024-05-31] MEDS: ATORVASTATIN 20 MG TABLET PO (09:45)
[2024-05-31] MEDS: ENOXAPARIN 40 MG/0.4 ML SYRINGE SUB-Q (09:45)
[2024-05-31] MEDS: LORATADINE 10 MG TABLET PO (09:45)
--- NOTE | 2024-05-31 10:24 | PCSTNOTE ---
Please refer to the Modified Barium Swallow Evaluation in the EMR.
--- NOTE | 2024-05-31 10:27 | PCSTNOTE ---
An order for a Bedside Swallow Evaluation (BSE) was placed but also a Modified Barium Swallow study z(MBS) order was placed; BSE order discontinued due to MBS order being a more advanced evaluation of the swallowing.
--- NOTE | 2024-05-31 15:47 | PM.IMPN ---
Progress Note: A&P Assessment and Plan (1) Pneumonia: Qualifiers: Laterality: left Lung location: lower lobe of lung Pneumonia type: due to unspecified organism Qualified Code(s): J18.9 - Pneumonia, unspecified organism Code(s): J18.9 - Pneumonia, unspecified organism Status: Acute Assessment and Plan: Patient presents back to the ED for persistent cough and SOB. CT Ch showing no PE but emphysematous changes, scattered tree-in-bud opacities and a thin web in the mid trachea. Differential noted. Checking for atypical infections. MRSA nasal swab negative. Speech therapy felt patient did well without evidence of aspiration but recommended Level 5 diet due to lack of dentures. Sputum Cx pending. BCx from last admission negative. Currently on Rocephin and Azithromycin without much benefit. Will switch to Cefepime to cove for pseudomonas. Continue Azithro for atypicals but change to oral Continue Flonase and Clartin for sinus/post-nasal drainage. Pulm following and appreciate their input. (2) Emphysema/COPD: Code(s): J43.9 - Emphysema, unspecified Status: Acute Assessment and Plan: CTA chest as above. Hx of smoking but also consider other etiologies for his lung scarring/emphysema. Treated with Yuliya-Medrol once in ED and then started on oral steroids. Continue Prednisone. Continue DuoNebs. Continue Symbicort (3) Abnormal EKG: Code(s): R94.31 - Abnormal electrocardiogram [ECG] [EKG] Status: Acute Assessment and Plan: EKG showing Rt BBB, ST depression. Troponin negative x3 last admission and x1 this admission. Repeat Troponin negative. Echo showing EF 65/70%, grade I diastolic dysfunction, bicuspid AV but no or AI. Follow clinically. (4) Sleep apnea: Code(s): G47.30 - Sleep apnea, unspecified Status: Acute Assessment and Plan: Patient is refusing CPAP since he hasn't used this in over 3 years. (5) Debility: Code(s): R53.81 - Other malaise Status: Acute Assessment and Plan: Patient with diffuse weakness. B12, folate and Vit D normal. Not an alcoholic. Can not get brain MRI due to coughing fits but clinically better and up walking with therapy. Cancel MRI. Continue PT/OT Plan DVT prophylaxis - Lovenox Code status - full Subjective Date/time seen: 05/31/24 15:47 Interval history: 88yo male with MARK, COPD and who was recently discharged from [place] for PNA returns to the ED for cough. Cough without change. Unable to perform MRI because can not lay still long enough due to cough. No CP or SOB. Walking to the BR. Exam Narrative: AF 98.2 102 81 18 99% ra Gen - NARD Chest - left base inspiratory crackles, nml RR CV - RRR S1/S2. S1-S2. Abd - soft, NT, ND, +BS Ext - no pedal edema Psych - normal mood and affect. Skin - warm and dry. Objective Data Vital Signs Vital Signs: Vital Signs - 24 hr 05/30/24 20:40 05/30/24 21:56 05/30/24 22:00 Temperature Pulse Rate 81 80 Respiratory Rate 18 18 Blood Pressure Pulse Oximetry 91 92 Oxygen Delivery Room Air Room Air Fraction of Inspired Oxygen 05/30/24 22:00 05/30/24 22:06 05/31/24 06:00 Temperature 97.6 F 97.6 F Pulse Rate 76 81 80 Respiratory Rate 18 18 18 Blood Pressure 143/91 H 151/72 H Pulse Oximetry 91 93 Oxygen Delivery Fraction of Inspired Oxygen 05/31/24 08:00 05/31/24 08:38 05/31/24 08:38 Temperature Pulse Rate 76 Respiratory Rate 18 Blood Pressure Pulse Oximetry 92 Oxygen Delivery Room Air Room Air Fraction of Inspired Oxygen 05/31/24 08:48 05/31/24 13:45 05/31/24 13:57 Temperature Pulse Rate 78 82 81 Respiratory Rate 18 20 20 Blood Pressure Pulse Oximetry Oxygen Delivery Fraction of Inspired Oxygen 05/31/24 14:00 Temperature 98.2 F Pulse Rate 81 Respiratory Rate 18 Blood Pressure 102/78 Pulse Oximetry 99 Oxygen Delivery Fraction of Inspired Oxygen Intake/Output Intake/Output: Intake & Output 05/28/24 05/29/24 05/30/24 05/31/24 23:59 23:59 23:59 23:59 Intake Total 1210 295 Balance 1210 295 Meds/Results Medications: Active Medications Generic Name Dose Route Start Last Admin Trade Name Freq PRN Reason Stop Dose Admin Acetaminophen 650 mg 05/30/24 02:43 Acetaminophen 325 Mg Tablet PO Q4H PRN Mild Pain (1-3) or Fever Albuterol 2 puff 05/30/24 13:03 Albuterol Sulfate (*Sp) Aerosol 1 Puff INHALATION Q6HRT PRN Wheezing Albuterol/Ipratropium 3 ml 05/30/24 14:00 05/31/24 13:45 Ipratropium 0.5 Mg/Albuterol Sulfate 2.5 Mg Ampul.Neb 3 Ml INHALATION 3 ml [id number] JAMISON Administration Aspirin 81 mg 05/31/24 09:00 05/31/24 09:45 Aspirin 81 Mg Chewable Tablet PO 81 mg DAILY JAMISON Administration Atorvastatin Calcium 20 mg 05/31/24 09:00 05/31/24 09:45 Atorvastatin 20 Mg Tablet PO 20 mg DAILY JAMISON Administration Brimonidine Tartrate 1 drop 05/30/24 13:30 05/31/24 13:01 Brimonidine Tartrate 0.2% Op Soln 5 Ml Btl RIGHT EYE 06/29/24 13:29 Not Given BID@0900,1200 JAMISON Bupropion HCl 150 mg 05/30/24 17:00 05/31/24 09:45 Bupropion Hcl Sr (12 Hr) 150 Mg Tab PO 150 mg BID JAMISON Administration Doxazosin Mesylate 4 mg 05/31/24 09:00 05/31/24 09:45 Doxazosin Mesylate 4 Mg Tablet PO 4 mg DAILY JAMISON Administration Enoxaparin Sodium 40 mg 05/30/24 13:00 05/31/24 09:45 Enoxaparin 40 Mg/0.4 Ml Syringe SUB-Q 40 mg DAILY JAMISON Administration Fluticasone Propionate 2 spray 05/30/24 21:00 05/30/24 20:39 Fluticasone Propionate 0.05% Na Spr 16 Gm Btl (*Bkc) NASAL 2 spray HS JAMISON Administration Gabapentin 600 mg 05/30/24 21:00 05/30/24 20:39 Gabapentin 300 Mg Capsule PO 600 mg HS JAMISON Administration Ceftriaxone Sodium 1 gm in 50 mls @ 100 mls/hr 05/31/24 03:00 05/31/24 03:04 Rocephin 1 Gm/Ns 50 Ml IVPB 100 mls/hr Q24H JAMISON Administration Azithromycin 500 mg in 250 mls @ 250 mls/hr 05/31/24 03:00 05/31/24 02:06 Zithromax IVPB 250 mls/hr Q24H JAMISON Administration Isosorbide Mononitrate 30 mg 05/31/24 09:00 05/31/24 09:45 Isosorbide Mononitrate 30 Mg Tab.Er.24h PO 30 mg DAILY JAMISON Administration Latanoprost 1 drop 05/30/24 21:00 05/30/24 20:40 Latanoprost 0.005% Op Soln 2.5 Ml Btl RIGHT EYE 1 drop HS JAMISON Administration Loratadine 10 mg 05/31/24 09:00 05/31/24 09:45 Loratadine 10 Mg Tablet PO 10 mg QAM JAMISON Administration Ondansetron HCl 4 mg 05/30/24 02:43 Ondansetron Inj 4 Mg/2 Ml Vial IV PUSH Q4H PRN Nausea Pantoprazole Sodium 40 mg 05/31/24 09:00 05/31/24 09:45 Pantoprazole 40 Mg Tablet PO 40 mg DAILY JAMISON Administration Perflutren Lipid Microsphere 0 ml 05/30/24 13:01 Perflutren Lipid Microspheres 1.5 Ml Vial Diluted To 10 Ml Total Volume IV PUSH 06/02/24 13:02 ONCE PRN adequate visualization Protocol Prednisone 40 mg 05/30/24 13:00 05/31/24 09:45 Prednisone 20 Mg Tablet PO 06/03/24 08:01 40 mg DAILY@0800 [facility] Administration Fluticasone/Salmeterol 2 puff 05/30/24 20:00 05/31/24 08:38 Fluticasone/Salmeterol 115-21 Mcg Inhaler 1 Puff INHALATION 2 puff Q12HRT JAMISON Administration Timolol Maleate 1 drop 05/30/24 13:30 05/31/24 13:01 Timolol Maleate 0.5% Op Soln 5 Ml Bottle RIGHT EYE Not Given BID@0900,1200 [facility]1983 Radiology Results: ITS Impressions Chest/Abdomen/Pelvis CTA 05/29/24 21:18 IMPRESSION: No CT evidence of acute pulmonary embolus. Scattered mild tree-in-bud opacities as can be seen with atypical infection, ABPA, airways disease, and aspiration. Emphysema and asbestos related pleural disease. Bladder wall thickening may be secondary to cystitis or chronic outlet obstruction from prostatomegaly. Modified Barium Swallow 05/31/24 09:31 IMPRESSION: 1. Normal modified barium swallow. 2. Please refer to the speech therapy report for recommendations. Labs Labs: Laboratory Results - last 24 hr 05/30/24 05/30/24 14:52 17:25 Vitamin B12 571.0 Folate 7.7 Nasal MRSA (PCR) Not detected
[2024-05-31] MEDS: FLUTICASONE PROPIONATE 0.05% NA SPR 16 GM BTL (*BKC) 2 SPRAY NASAL (21:30)
[2024-05-31] MEDS: CEFEPIME 2 GM/NS 50 ML 2 GM/50 ML BAG IVPB (21:30)
[2024-05-31] MEDS: GABAPENTIN 300 MG CAPSULE 600 MG PO (21:31)
[2024-06-01] VITALS (8 sets, daily range): BP systolic 107–129; BP diastolic 66–75; PULSE 70–85; RESP 18–20; TEMP 36.1–37.3; O2SAT 91–94
[2024-06-01 08:22] LABS: Basophils Percent Auto 0.2 % (0.2-1.2); Immature Granulocyte Absolute 0.03 K/mm3 (0.00-0.031); Immature Granulocyte Percent A 0.5 % (0-0.5); Lymphocytes Absolute Auto 0.83 K/mm3 (0.9-3.2); Lymphocytes Percent Auto 14.7 % (18.3-44.2); Mean Corpuscular HGB Conc 32.6 g/dl (32-36); Mean Corpuscular Hemoglobin 34.1 pg (26-34); Mean Corpuscular Volume 104.6 fl (80-100); Mean Platelet Volume 9.1 fl (7.4-10.4); Monocytes Absolute Auto 1.1 K/mm3 (0.1-0.6); Monocytes Percent Auto 19.9 % (2.6-8.5); Neutrophils Absolute Auto 3.7 K/mm3 (1.3-6.7); Neutrophils Percent Auto 64.7 % (45.5-73.1); Platelet Count Result 219 k/mm3 (150-375); Red Blood Count 4.11 M/mm3 (4.6-6.20); Red Cell Distribution Width 13.2 % (11.5-14.5); White Blood Count 5.6 K/mm3 (4.5-10.0)
[2024-06-01] MEDS: buPROPion HCL SR (12 HR) 150 MG TAB PO ×2 (08:29→17:05)
[2024-06-01] MEDS: ASPIRIN 81 MG CHEWABLE TABLET PO (08:29)
[2024-06-01] MEDS: AZITHROMYCIN 250 MG TABLET PO (08:29)
[2024-06-01] MEDS: DOXAZOSIN MESYLATE 4 MG TABLET PO (08:29)
[2024-06-01] MEDS: ATORVASTATIN 20 MG TABLET PO (08:29)
[2024-06-01] MEDS: PANTOPRAZOLE 40 MG TABLET PO (08:29)
[2024-06-01] MEDS: ISOSORBIDE MONONITRATE 30 MG TAB.ER.24H PO (08:29)
[2024-06-01] MEDS: LORATADINE 10 MG TABLET PO (08:29)
[2024-06-01] MEDS: predniSONE 20 MG TABLET 40 MG PO (08:30)
[2024-06-01] MEDS: CEFEPIME 2 GM/NS 50 ML 2 GM/50 ML BAG IVPB ×2 (08:30→21:57)
[2024-06-01] MEDS: ENOXAPARIN 40 MG/0.4 ML SYRINGE SUB-Q (08:37)
[2024-06-01 08:45] LABS: Alanine Aminotransferase 22 U/L (6-50); Albumin Level 3.8 g/dL (3.5-5.1); Alkaline Phosphatase 117 U/L (38-126); Anion Gap 3 mmol/L (4-12); Aspartate Amino Transferase 32 U/L (17-59); Bilirubin,Total 0.7 mg/dL (0.2-1.3); Blood Urea Nitrogen 35 mg/dL (9-20); Calcium 9.1 mg/dL (8.4-10.2); Carbon Dioxide 32 mmol/L (22-30); Chloride 106 mmol/L (98-107); Estimated CRCL calculation 39 ml/min; Estimated Glomerular Filt Rate 57; Glucose 86 mg/dL (65-110); Magnesium 2.5 mg/dL (1.6-2.3); Phosphorus 3.3 mg/dL (2.5-4.5); Potassium 3.8 mmol/L (3.4-5.0); Sodium 141 mmol/L (137-145)
[2024-06-01] MEDS: IPRATROPIUM 0.5 MG/ALBUTEROL SULFATE 2.5 MG AMPUL.NEB 3 ML INHALATION ×3 (09:07→21:33)
[2024-06-01] MEDS: FLUTICASONE/SALMETEROL 115-21 MCG INHALER 1 PUFF 2 PUFF INHALATION (09:07)
--- NOTE | 2024-06-01 12:12 | PM.IMPN ---
Progress Note: A&P Assessment and Plan (1) Pneumonia: Qualifiers: Laterality: left Lung location: lower lobe of lung Pneumonia type: due to unspecified organism Qualified Code(s): J18.9 - Pneumonia, unspecified organism Code(s): J18.9 - Pneumonia, unspecified organism Status: Acute Assessment and Plan: Patient presents back to the ED for persistent cough and SOB. CT Ch showing no PE but emphysematous changes, scattered tree-in-bud opacities and a thin web in the mid trachea. Differential noted. Checking for atypical infections. MRSA nasal swab negative. Speech therapy felt patient did well without evidence of aspiration but recommended Level 5 diet due to lack of dentures. Sputum Cx negative. BCx from last admission negative. Currently on Rocephin and Azithromycin without much benefit. Switched to Cefepime to cove for pseudomonas. He feels better today. Continue Azithro for atypicals Continue Flonase and Clartin for sinus/post-nasal drainage. Pulm following and appreciate their input. (2) Emphysema/COPD: Code(s): J43.9 - Emphysema, unspecified Status: Acute Assessment and Plan: CTA chest as above. Hx of smoking but also consider other etiologies for his lung scarring/emphysema. Treated with Yuliya-Medrol once in ED and then started on oral steroids. Continue Prednisone. Continue DuoNebs. Continue Symbicort (3) Abnormal EKG: Code(s): R94.31 - Abnormal electrocardiogram [ECG] [EKG] Status: Acute Assessment and Plan: EKG showing Rt BBB, ST depression. Troponin negative x3 last admission and x1 this admission. Repeat Troponin negative. Echo showing EF 65/70%, grade I diastolic dysfunction, bicuspid AV but no or AI. Follow clinically. (4) Sleep apnea: Code(s): G47.30 - Sleep apnea, unspecified Status: Acute Assessment and Plan: Patient is refusing CPAP since he hasn't used this in over 3 years. (5) Debility: Code(s): R53.81 - Other malaise Status: Acute Assessment and Plan: Patient with diffuse weakness. B12, folate and Vit D normal. Not an alcoholic. Can not get brain MRI due to coughing fits but clinically better and up walking with therapy. Cancel MRI. Continue PT/OT Plan DVT prophylaxis - Lovenox Code status - full Subjective Date/time seen: 06/01/24 12:12 Interval history: 88yo male with MARK, COPD and who was recently discharged from [facility] for PNA returns to the ED for cough. Feeling good. Cough better. No issues overnight. Not exposed to birds, chix, cattle or raw milk Exam Narrative: AF 99.1 129/75 77 20 91% ra Gen - NARD Chest - left base crackles, nml RR with prolonged expiratory phase CV - RRR S1/S2 Abd - soft, NT, ND, +BS Ext - no pedal edema Psych - normal mood and affect. Skin - warm and dry. Objective Data Vital Signs Vital Signs: Vital Signs - 24 hr 05/31/24 13:45 05/31/24 13:57 05/31/24 14:00 Temperature 98.2 F Pulse Rate 82 81 81 Respiratory Rate 20 20 18 Blood Pressure 102/78 Pulse Oximetry 99 Oxygen Delivery 05/31/24 20:58 05/31/24 21:00 05/31/24 21:09 Temperature Pulse Rate 76 79 Respiratory Rate 20 20 Blood Pressure Pulse Oximetry 93 Oxygen Delivery Room Air 05/31/24 21:34 06/01/24 06:00 06/01/24 09:07 Temperature 97.0 F L 99.1 F Pulse Rate 73 83 82 Respiratory Rate 18 18 20 Blood Pressure 105/61 129/75 Pulse Oximetry 94 93 91 Oxygen Delivery Room Air 06/01/24 09:07 06/01/24 09:16 06/01/24 09:37 Temperature Pulse Rate 82 77 Respiratory Rate 20 20 Blood Pressure Pulse Oximetry Oxygen Delivery Room Air 06/01/24 11:09 Temperature Pulse Rate Respiratory Rate Blood Pressure Pulse Oximetry Oxygen Delivery Room Air Intake/Output Intake/Output: Intake & Output 05/29/24 05/30/24 05/31/24 06/01/24 23:59 23:59 23:59 23:59 Intake Total 1210 345 350 Balance 1210 345 350 Meds/Results Medications: Active Medications Generic Name Dose Route Start Last Admin Trade Name Freq PRN Reason Stop Dose Admin Acetaminophen 650 mg 05/30/24 02:43 Acetaminophen 325 Mg Tablet PO Q4H PRN Mild Pain (1-3) or Fever Albuterol 2 puff 05/30/24 13:03 Albuterol Sulfate (*Sp) Aerosol 1 Puff INHALATION Q6HRT PRN Wheezing Albuterol/Ipratropium 3 ml 05/30/24 14:00 06/01/24 09:07 Ipratropium 0.5 Mg/Albuterol Sulfate 2.5 Mg Ampul.Neb 3 Ml INHALATION 3 ml Q7TMIFY JAMISON Administration Aspirin 81 mg 05/31/24 09:00 06/01/24 08:29 Aspirin 81 Mg Chewable Tablet PO 81 mg DAILY JAMISON Administration Atorvastatin Calcium 20 mg 05/31/24 09:00 06/01/24 08:29 Atorvastatin 20 Mg Tablet PO 20 mg DAILY JAMISON Administration Azithromycin 250 mg 06/01/24 09:00 06/01/24 08:29 Azithromycin 250 Mg Tablet PO 250 mg DAILY JAMISON Administration Brimonidine Tartrate 1 drop 05/30/24 13:30 06/01/24 12:09 Brimonidine Tartrate 0.2% Op Soln 5 Ml Btl RIGHT EYE 06/29/24 13:29 Not Given BID@0900,1200 JAMISON Bupropion HCl 150 mg 05/30/24 17:00 06/01/24 08:29 Bupropion Hcl Sr (12 Hr) 150 Mg Tab PO 150 mg BID JAMISON Administration Doxazosin Mesylate 4 mg 05/31/24 09:00 06/01/24 08:29 Doxazosin Mesylate 4 Mg Tablet PO 4 mg DAILY JAMISON Administration Enoxaparin Sodium 40 mg 05/30/24 13:00 06/01/24 08:37 Enoxaparin 40 Mg/0.4 Ml Syringe SUB-Q 40 mg DAILY JAMISON Administration Fluticasone Propionate 2 spray 05/30/24 21:00 05/31/24 21:30 Fluticasone Propionate 0.05% Na Spr 16 Gm Btl (*Bkc) NASAL 2 spray HS JAMISON Administration Gabapentin 600 mg 05/30/24 21:00 05/31/24 21:31 Gabapentin 300 Mg Capsule PO 600 mg HS JAMISON Administration Cefepime HCl 2 gm in 50 mls @ 100 mls/hr 05/31/24 20:00 06/01/24 08:30 Maxipime 2 Gm/Ns 50 Ml IVPB 100 mls/hr Q12H JAMISON Administration Isosorbide Mononitrate 30 mg 05/31/24 09:00 06/01/24 08:29 Isosorbide Mononitrate 30 Mg Tab.Er.24h PO 30 mg DAILY JAMISON Administration Latanoprost 1 drop 05/30/24 21:00 05/31/24 21:40 Latanoprost 0.005% Op Soln 2.5 Ml Btl RIGHT EYE Not Given HS JAMISON Loratadine 10 mg 05/31/24 09:00 06/01/24 08:29 Loratadine 10 Mg Tablet PO 10 mg QAM JAMISON Administration Pantoprazole Sodium 40 mg 05/31/24 09:00 06/01/24 08:29 Pantoprazole 40 Mg Tablet PO 40 mg DAILY JAMISON Administration Perflutren Lipid Microsphere 0 ml 05/30/24 13:01 Perflutren Lipid Microspheres 1.5 Ml Vial Diluted To 10 Ml Total Volume IV PUSH 06/02/24 13:02 ONCE PRN adequate visualization Protocol Prednisone 40 mg 05/30/24 13:00 06/01/24 08:30 Prednisone 20 Mg Tablet PO 06/03/24 08:01 40 mg DAILY@0800 JAMISON Administration Fluticasone/Salmeterol 2 puff 05/30/24 20:00 05/31/24 20:58 Fluticasone/Salmeterol 115-21 Mcg Inhaler 1 Puff INHALATION 2 puff Q12HRT JAMISON Administration Timolol Maleate 1 drop 05/30/24 13:30 06/01/24 12:10 Timolol Maleate 0.5% Op Soln 5 Ml Bottle RIGHT EYE Not Given BID@0900,1200 [facility] Radiology Results: ITS Impressions Chest/Abdomen/Pelvis CTA 05/29/24 21:18 IMPRESSION: No CT evidence of acute pulmonary embolus. Scattered mild tree-in-bud opacities as can be seen with atypical infection, ABPA, airways disease, and aspiration. Emphysema and asbestos related pleural disease. Bladder wall thickening may be secondary to cystitis or chronic outlet obstruction from prostatomegaly. Modified Barium Swallow 05/31/24 09:31 IMPRESSION: 1. Normal modified barium swallow. 2. Please refer to the speech therapy report for recommendations. Labs Labs: Laboratory Results - last 24 hr 06/01/24 07:37 WBC 5.6 RBC 4.11 L Hgb 14.0 Hct 43.0 MCV 104.6 H MCH 34.1 H MCHC 32.6 RDW 13.2 Plt Count 219 MPV 9.1 Immature Gran % (Auto) 0.5 Neut % (Auto) 64.7 Lymph % (Auto) 14.7 L Jennings % (Auto) 19.9 H Eos % (Auto) 0.0 Baso % (Auto) 0.2 Lymph # (Auto) 0.83 L Jennings # (Auto) 1.1 H Eos # (Auto) 0.0 Baso # (Auto) 0.0 Abs Immat Gran (auto) 0.03 Absolute Neuts (auto) 3.7 Absolute Nucleated RBC 0.000 Nucleated RBC % 0.0 Sodium 141 Potassium 3.8 Chloride 106 Carbon Dioxide 32 H Anion Gap 3 L BUN 35 H D Creatinine 1.20 Estim Creat Clear Calc 39 Estimated GFR 57 L Glucose 86 Calcium 9.1 Phosphorus 3.3 Magnesium 2.5 H Total Bilirubin 0.7 AST 32 ALT 22 Alkaline Phosphatase 117 Total Protein 7.0 Albumin 3.8
--- NOTE | 2024-06-01 14:26 | PC.NURSE ---
On 06/01/24, the SAND CAR WORKER, [ Karma Ortez ], provided care and completed [facility] documentation on this patient. I have reviewed the SAND CAR WORKER's documentation and agree with the findings.
[2024-06-01] MEDS: GABAPENTIN 300 MG CAPSULE 600 MG PO (21:48)
[2024-06-02] VITALS (10 sets, daily range): BP systolic 94–129; BP diastolic 58–67; PULSE 62–86; RESP 16–20; TEMP 36.3–36.6; O2SAT 84–97
[2024-06-02] MEDS: IPRATROPIUM 0.5 MG/ALBUTEROL SULFATE 2.5 MG AMPUL.NEB 3 ML INHALATION (08:02)
[2024-06-02] MEDS: LORATADINE 10 MG TABLET PO (09:03)
[2024-06-02] MEDS: buPROPion HCL SR (12 HR) 150 MG TAB PO ×2 (09:03→17:56)
[2024-06-02] MEDS: DOXAZOSIN MESYLATE 4 MG TABLET PO (09:03)
[2024-06-02] MEDS: ASPIRIN 81 MG CHEWABLE TABLET PO (09:03)
[2024-06-02] MEDS: PANTOPRAZOLE 40 MG TABLET PO (09:03)
[2024-06-02] MEDS: predniSONE 20 MG TABLET 40 MG PO (09:03)
[2024-06-02] MEDS: ENOXAPARIN 40 MG/0.4 ML SYRINGE SUB-Q (09:04)
[2024-06-02] MEDS: BRIMONIDINE TARTRATE 0.2% OP SOLN 5 ML BTL 1 DROP RIGHT EYE ×2 (09:04→13:52)
[2024-06-02] MEDS: ATORVASTATIN 20 MG TABLET PO (09:04)
[2024-06-02] MEDS: CEFEPIME 2 GM/NS 50 ML 2 GM/50 ML BAG IVPB ×2 (09:04→20:27)
[2024-06-02] MEDS: AZITHROMYCIN 250 MG TABLET PO (09:04)
[2024-06-02] MEDS: TIMOLOL MALEATE 0.5% OP SOLN 5 ML BOTTLE 1 DROP RIGHT EYE ×2 (09:04→13:52)
[2024-06-02] MEDS: ISOSORBIDE MONONITRATE 30 MG TAB.ER.24H PO (09:04)
--- NOTE | 2024-06-02 11:18 | P.PNPL_ITS ---
Progress Note: A&P Assessment and Plan (1) Pneumonia: Qualifiers: Laterality: left Lung location: lower lobe of lung Pneumonia type: due to unspecified organism Qualified Code(s): J18.9 - Pneumonia, unspecified organism Code(s): J18.9 - Pneumonia, unspecified organism Status: Acute Assessment and Plan: 06/02/2024: Is difficult to get a reliable information from the patient. At times he tells me is better than in when he arrived in the ambulance but cannot quantitate this. At times he tells me he is worse. He says that his cough is worse since admission but his phlegm is improved and he no longer has phlegm production. He also tells me that he has thick white phlegm production. Last night he was on room air with saturations 94%. This morning when I enter the room he was on 2 L nasal cannula with 98% sats. I decreased him to room air and he desatted to 89% after 4 minutes and I placed him back on 1 L nasal cannula. He is afebrile. Plan: The patient has tree-in-bud infiltrates that are mild. I suspect this is related to her respiratory viral illness. I will send a respiratory pathogen panel to [facility]. His MRSA swab is negative. COVID, influenza, RSV RT PCR studies negative. Patient is status post ceftriaxone 05/30 to 05/31 and now on cefepime since 05/31, day 3. will continue cefepime. On azithromycin day 4, will continue for [address] Winters, will follow with you. (2) Emphysema/COPD: Code(s): J43.9 - Emphysema, unspecified Status: Acute Assessment and Plan: Patient carries a diagnosis of COPD. I have no PFTs. CT scan of the chest on 05/29/2024 with moderate apical predominant centrilobular emphysema. He was on no home oxygen. 06/02/2024: Patient has no wheezing today. on 1 L currently. The nurse will try to wean him to maintain sats 90-94%. The patient tells me is difficult for him to expectorate his thick phlegm Plan: I will continue Advair 115-21 at 2 puffs q.12 hours. I will add Incruse Ellipta. I will discontinue DuoNebs. Patient is on prednisone 40 mg a day, day 5 of steroids And will discontinue after today's dose. Patient is on Claritin and Flonase for nasal congestion. Goal saturation 90-94%. Currently requiring 1 L. I will add guaifenesin 1200 mg p.o. b.i.d. Subjective Date/time seen: 06/02/24 11:18 Interval history: Jun 01, 2024 at 23:30 Room 321 NEW pulmonary consult: Rogerio Vivar is an 88 year old man recently in the hospital for COPD, was admitted 05/24/24 with LLL infiltrate; he was treated with Rocephin and Azithromycin. he had an PT OT evaluation, was ok to go home on 05/26 eating and drinking at baseline, sent home on Cefdinir and Doxycycline for 5 more days. he returned 05/29 with abdominal painm N/V, weakness and fatigue with cough productive of sputum. He said that the antibiotics made him feel worse. PMH: acute blood loss anemia, colon diverticulosis, diverticular hemorrhage, rectal bleeding, emphysema / COPD, sleep apnea who presented to the ER for evaluation of dark maroon stools. 06/02/2024: Is difficult to get a reliable information from the patient. At times he tells me is better than in when he arrived in the ambulance but cannot quantitate this. At times he tells me he is worse. He says that his cough is worse since admission but his phlegm is improved and he no longer has phlegm production. He also tells me that he has thick white phlegm production. Last night he was on room air with saturations 94%. This morning when I enter the room he was on 2 L nasal cannula with 98% sats. I decreased him to room air and he desatted to 89% after 4 minutes and I placed him back on 1 L nasal cannula. He is afebrile. DATA * Chest/Abdomen/Pelvis CTA 05/29/24 21:18 IMPRESSION: No CT evidence of acute pulmonary embolus. Scattered mild tree-in-bud opacities as can be seen with atypical infection, ABPA, airways disease, and aspiration. Emphysema and asbestos related pleural disease. Bladder wall thickening may be secondary to cystitis or chronic outlet obstruction from prostatomegaly. Modified Barium Swallow 05/31/24 09:31 IMPRESSION: 1. Normal modified barium swallow. 2. Please refer to the speech therapy report for recommendations. Review of Systems Constitutional: Constitutional: Reports no additional constitutional complaints Eyes: Eyes: Reports no additional eye complaints ENT: Reports system reviewed and no additional complaints, except as documented Cardiovascular: Cardiovascular: Reports no additional cardiovascular complaints Respiratory: Respiratory: Reports no additional respiratory complaints Gastrointestinal: Gastrointestinal: Reports no additional gastrointestinal complaints Musculoskeletal: Musculoskeletal: Reports no additional musculoskeletal complaints Neurologic: Reports system reviewed and no additional complaints, except as documented Psychiatric: Psychiatric: Reports no additional psychiatric complaints Endocrine: Endocrine: Reports no additional endocrine complaints Hematologic/Lymphatic: Hematologic/Lymphatic: Reports no additional he matologic/lymphatic complaints Allergic/Immunologic: Allergic/Immunologic: Reports no additional allergic/immunologic complaints Exam Const: General: cooperative, healthy appearing and comfortable Orientation/consciousness: oriented to person, oriented to place and oriented to time HENMT: Head: normal to inspection Ears: hearing grossly normal bilaterally Eyes: General: appearance normal, both eyes and all related structures Neck: Neck: normal visual inspection Chest: Chest palpation & inspection: normal inspection of the chest Resp: Effort & Inspection: normal respiratory effort and able to speak in complete sentences Auscultation: no crackles, no rales, no rhonchi, no wheezes and lung sounds not diminished Cardio: Jugular venous distension: no JVD GI: Inspection: normal to inspection GI Palp: No abdominal tenderness Skin: General skin exam: normal color Neuro: General: oriented to person, oriented to place and oriented to time Extrem: General: normal to inspection Psych: Appearance: grossly normal Objective Data Vital Signs Vital Signs: Vital Signs - 24 hr 06/01/24 13:44 06/01/24 13:44 06/01/24 13:55 Temperature Pulse Rate 85 82 80 Respiratory Rate 20 20 20 Blood Pressure Pulse Oximetry 93 Oxygen Delivery Room Air Oxygen Flow Rate Fraction of Inspired Oxygen 06/01/24 14:00 06/01/24 21:33 06/01/24 22:00 Temperature 36.1 C L 36.4 C Pulse Rate 73 76 70 Respiratory Rate 18 20 18 Blood Pressure 107/66 112/74 Pulse Oximetry 94 94 Oxygen Delivery Oxygen Flow Rate Fraction of Inspired Oxygen 06/02/24 06:00 06/02/24 07:57 06/02/24 08:02 Temperature 36.4 C Pulse Rate 86 Respiratory Rate 20 Blood Pressure 129/62 Pulse Oximetry 90 84 L 92 Oxygen Delivery Room Air Nasal Cannula Oxygen Flow Rate 2 Fraction of Inspired Oxygen 21 28 06/02/24 08:02 06/02/24 08:10 06/02/24 08:40 Temperature Pulse Rate 81 80 Respiratory Rate 20 20 Blood Pressure Pulse Oximetry 95 Oxygen Delivery Nasal Cannula Oxygen Flow Rate 2 Fraction of Inspired Oxygen 28 Intake/Output Intake/Output: Intake & Output 05/30/24 05/31/24 06/01/24 06/02/24 23:59 23:59 23:59 23:59 Intake Total 1210 345 690 220 Balance 1210 345 690 220 Meds/Results Medications: Active Medications Generic Name Dose Route Start Last Admin Trade Name Freq PRN Reason Stop Dose Admin Acetaminophen 650 mg 05/30/24 02:43 Acetaminophen 325 Mg Tablet PO Q4H PRN Mild Pain (1-3) or Fever Albuterol 2 puff 05/30/24 13:03 Albuterol Sulfate (*Sp) Aerosol 1 Puff INHALATION Q6HRT PRN Wheezing Aspirin 81 mg 05/31/24 09:00 06/02/24 09:03 Aspirin 81 Mg Chewable Tablet PO 81 mg DAILY JAMISON Administration Atorvastatin Calcium 20 mg 05/31/24 09:00 06/02/24 09:04 Atorvastatin 20 Mg Tablet PO 20 mg DAILY JAMISON Administration Azithromycin 250 mg 06/01/24 09:00 06/02/24 09:04 Azithromycin 250 Mg Tablet PO 250 mg DAILY JAMISON Administration Brimonidine Tartrate 1 drop 05/30/24 13:30 06/02/24 09:04 Brimonidine Tartrate 0.2% Op Soln 5 Ml Btl RIGHT EYE 06/29/24 13:29 1 drop BID@0900,1200 JAMISON Administration Bupropion HCl 150 mg 05/30/24 17:00 06/02/24 09:03 Bupropion Hcl Sr (12 Hr) 150 Mg Tab PO 150 mg BID JAMISON Administration Doxazosin Mesylate 4 mg 05/31/24 09:00 06/02/24 09:03 Doxazosin Mesylate 4 Mg Tablet PO 4 mg DAILY JAMISON Administration Enoxaparin Sodium 40 mg 05/30/24 13:00 06/02/24 09:04 Enoxaparin 40 Mg/0.4 Ml Syringe SUB-Q 40 mg DAILY JAMISON Administration Fluticasone Propionate 2 spray 05/30/24 21:00 06/01/24 22:16 Fluticasone Propionate 0.05% Na Spr 16 Gm Btl (*Bkc) NASAL Not Given HS JAMISON Gabapentin 600 mg 05/30/24 21:00 06/01/24 21:48 Gabapentin 300 Mg Capsule PO 600 mg HS JAMISON Administration Guaifenesin 1,200 mg 06/02/24 10:55 Guaifenesin 12 Hr 600 Mg Tabcr PO Q12HR JAMISON Cefepime HCl 2 gm in 50 mls @ 100 mls/hr 05/31/24 20:00 06/02/24 09:04 Maxipime 2 Gm/Ns 50 Ml IVPB 100 mls/hr Q12H JAMISON Administration Isosorbide Mononitrate 30 mg 05/31/24 09:00 06/02/24 09:04 Isosorbide Mononitrate 30 Mg Tab.Er.24h PO 30 mg DAILY JAMISON Administration Latanoprost 1 drop 05/30/24 21:00 06/01/24 22:16 Latanoprost 0.005% Op Soln 2.5 Ml Btl RIGHT EYE Not Given HS JAMISON Loratadine 10 mg 05/31/24 09:00 06/02/24 09:03 Loratadine 10 Mg Tablet PO 10 mg QAM JAMISON Administration Pantoprazole Sodium 40 mg 05/31/24 09:00 06/02/24 09:03 Pantoprazole 40 Mg Tablet PO 40 mg DAILY JAMISON Administration Perflutren Lipid Microsphere 0 ml 05/30/24 13:01 Perflutren Lipid Microspheres 1.5 Ml Vial Diluted To 10 Ml Total Volume IV PUSH 06/02/24 13:02 ONCE PRN adequate visualization Protocol Prednisone 40 mg 05/30/24 13:00 06/02/24 09:03 Prednisone 20 Mg Tablet PO 06/03/24 08:01 40 mg DAILY@0800 JAMISON Administration Fluticasone/Salmeterol 2 puff 05/30/24 20:00 06/02/24 08:40 Fluticasone/Salmeterol 115-21 Mcg Inhaler 1 Puff INHALATION Not Given Q12HRT JAMISON Timolol Maleate 1 drop 05/30/24 13:30 06/02/24 09:04 Timolol Maleate 0.5% Op Soln 5 Ml Bottle RIGHT EYE 1 drop BID@0900,1200 JAMISON Administration Umeclidinium [place] 1 puff 01/04/25 10:55 Umeclidinium [place] 62.5 Mcg Ellipta INHALATION DAILYRT [facility] Radiology Results: ITS Impressions Chest/Abdomen/Pelvis CTA 05/29/24 21:18 IMPRESSION: No CT evidence of acute pulmonary embolus. Scattered mild tree-in-bud opacities as can be seen with atypical infection, ABPA, airways disease, and aspiration. Emphysema and asbestos related pleural disease. Bladder wall thickening may be secondary to cystitis or chronic outlet obstruction from prostatomegaly. Modified Barium Swallow 05/31/24 09:31
--- NOTE | 2024-06-02 13:35 | PM.IMPN ---
Progress Note: A&P Assessment and Plan (1) Pneumonia: Qualifiers: Laterality: left Lung location: lower lobe of lung Pneumonia type: due to unspecified organism Qualified Code(s): J18.9 - Pneumonia, unspecified organism Code(s): J18.9 - Pneumonia, unspecified organism Status: Acute Assessment and Plan: Patient presents back to the ED for persistent cough and SOB. CT Ch showing no PE but emphysematous changes, scattered tree-in-bud opacities and a thin web in the mid trachea. Differential noted. Checking for atypical infections. MRSA nasal swab negative. Speech therapy felt patient did well without evidence of aspiration but recommended Level 5 diet due to lack of dentures. Sputum Cx negative. BCx from last admission negative. Currently on Rocephin and Azithromycin without much benefit. Switched to Cefepime to cover for pseudomonas. He weak today but unclear if he is back to his baseline. Continue Azithro for atypicals adn Cefepime Continue Flonase and Clartin for sinus/post-nasal drainage. Pulm following and appreciate their input. Discussed. Mucinex added. (2) Emphysema/COPD: Code(s): J43.9 - Emphysema, unspecified Status: Acute Assessment and Plan: CTA chest as above. Hx of smoking but also consider other etiologies for his lung scarring/emphysema. Treated with Yuliya-Medrol once in ED and then started on oral steroids. Continue Prednisone. Continue DuoNebs. Continue Advair. Incruse added (3) Abnormal EKG: Code(s): R94.31 - Abnormal electrocardiogram [ECG] [EKG] Status: Acute Assessment and Plan: EKG showing Rt BBB, ST depression similar to prior EKGs. Troponin negative x3 last admission and x1 this admission. Repeat Troponin negative. Echo showing EF 65/70%, grade I diastolic dysfunction, bicuspid AV but no or AI. Follow clinically. (4) Sleep apnea: Code(s): G47.30 - Sleep apnea, unspecified Status: Acute Assessment and Plan: Patient is refusing CPAP since he hasn't used this in over 3 years. (5) Debility: Code(s): R53.81 - Other malaise Status: Acute Assessment and Plan: Patient with diffuse weakness. B12, folate and Vit D normal. Not an alcoholic. Could not get brain MRI because patient couldnt lie flat. Continue PT/OT Plan DVT prophylaxis - Lovenox Code status - full Subjective Date/time seen: 06/02/24 13:35 Interval history: 88yo male with MARK, COPD and who was recently discharged from [place] for PNA returns to the ED for cough. SOB unchanged. Feeling weaker and upset that he has to use the walker. Walking 72ft with walker with therpay. Cough better. Exam Narrative: AF 97.6 129/62 80 20 95% 2L Gen - NARD Chest - basilar rhonchi with expir wheeze CV - RRR S1/S2 Abd - soft, NT, ND, +BS Ext - no pedal edema Psych - normal mood and affect. Skin - warm and dry. Objective Data Vital Signs Vital Signs: Vital Signs - 24 hr 06/01/24 13:44 06/01/24 13:44 06/01/24 13:55 Temperature Pulse Rate 85 82 80 Respiratory Rate 20 20 20 Blood Pressure Pulse Oximetry 93 Oxygen Delivery Room Air Oxygen Flow Rate Fraction of Inspired Oxygen 06/01/24 14:00 06/01/24 21:33 06/01/24 22:00 Temperature 97.0 F L 97.6 F Pulse Rate 73 76 70 Respiratory Rate 18 20 18 Blood Pressure 107/66 112/74 Pulse Oximetry 94 94 Oxygen Delivery Oxygen Flow Rate Fraction of Inspired Oxygen 06/02/24 06:00 06/02/24 07:57 06/02/24 08:00 Temperature 97.6 F Pulse Rate 86 Respiratory Rate 20 Blood Pressure 129/62 Pulse Oximetry 90 84 L 93 Oxygen Delivery Room Air Nasal Cannula Oxygen Flow Rate 1 Fraction of Inspired Oxygen 21 06/02/24 08:02 06/02/24 08:02 06/02/24 08:10 Temperature Pulse Rate 81 80 Respiratory Rate 20 20 Blood Pressure Pulse Oximetry 92 Oxygen Delivery Nasal Cannula Oxygen Flow Rate 2 Fraction of Inspired Oxygen 28 06/02/24 08:40 Temperature Pulse Rate Respiratory Rate Blood Pressure Pulse Oximetry 95 Oxygen Delivery Nasal Cannula Oxygen Flow Rate 2 Fraction of Inspired Oxygen 28 Intake/Output Intake/Output: Intake & Output 05/30/24 05/31/24 06/01/24 06/02/24 23:59 23:59 23:59 23:59 Intake Total 1210 345 690 340 Balance 1210 345 690 340 Meds/Results Medications: Active Medications Generic Name Dose Route Start Last Admin Trade Name Freq PRN Reason Stop Dose Admin Acetaminophen 650 mg 05/30/24 02:43 Acetaminophen 325 Mg Tablet PO Q4H PRN Mild Pain (1-3) or Fever Albuterol 2 puff 05/30/24 13:03 Albuterol Sulfate (*Sp) Aerosol 1 Puff INHALATION Q6HRT PRN Wheezing Aspirin 81 mg 05/31/24 09:00 06/02/24 09:03 Aspirin 81 Mg Chewable Tablet PO 81 mg DAILY JAMISON Administration Atorvastatin Calcium 20 mg 05/31/24 09:00 06/02/24 09:04 Atorvastatin 20 Mg Tablet PO 20 mg DAILY JAMISON Administration Azithromycin 250 mg 06/01/24 09:00 06/02/24 09:04 Azithromycin 250 Mg Tablet PO 250 mg DAILY JAMISON Administration Brimonidine Tartrate 1 drop 05/30/24 13:30 06/02/24 09:04 Brimonidine Tartrate 0.2% Op Soln 5 Ml Btl RIGHT EYE 06/29/24 13:29 1 drop BID@0900,1200 JAMISON Administration Bupropion HCl 150 mg 05/30/24 17:00 06/02/24 09:03 Bupropion Hcl Sr (12 Hr) 150 Mg Tab PO 150 mg BID JAMISON Administration Doxazosin Mesylate 4 mg 05/31/24 09:00 06/02/24 09:03 Doxazosin Mesylate 4 Mg Tablet PO 4 mg DAILY JAMISON Administration Enoxaparin Sodium 40 mg 05/30/24 13:00 06/02/24 09:04 Enoxaparin 40 Mg/0.4 Ml Syringe SUB-Q 40 mg DAILY JAMISON Administration Fluticasone Propionate 2 spray 05/30/24 21:00 06/01/24 22:16 Fluticasone Propionate 0.05% Na Spr 16 Gm Btl (*Bkc) NASAL Not Given HS JAMISON Gabapentin 600 mg 05/30/24 21:00 06/01/24 21:48 Gabapentin 300 Mg Capsule PO 600 mg HS JAMISON Administration Guaifenesin 1,200 mg 06/02/24 10:55 Guaifenesin 12 Hr 600 Mg Tabcr PO Q12HR JAMISON Cefepime HCl 2 gm in 50 mls @ 100 mls/hr 05/31/24 20:00 06/02/24 09:04 Maxipime 2 Gm/Ns 50 Ml IVPB 100 mls/hr Q12H JAMISON Administration Isosorbide Mononitrate 30 mg 05/31/24 09:00 06/02/24 09:04 Isosorbide Mononitrate 30 Mg Tab.Er.24h PO 30 mg DAILY JAMISON Administration Latanoprost 1 drop 05/30/24 21:00 06/01/24 22:16 Latanoprost 0.005% Op Soln 2.5 Ml Btl RIGHT EYE Not Given HS JAMISON Loratadine 10 mg 05/31/24 09:00 06/02/24 09:03 Loratadine 10 Mg Tablet PO 10 mg QAM JAMISON Administration Pantoprazole Sodium 40 mg 05/31/24 09:00 06/02/24 09:03 Pantoprazole 40 Mg Tablet PO 40 mg DAILY JAMISON Administration Prednisone 40 mg 05/30/24 13:00 06/02/24 09:03 Prednisone 20 Mg Tablet PO 06/03/24 08:01 40 mg DAILY@0800 JAMISON Administration Fluticasone/Salmeterol 2 puff 05/30/24 20:00 06/02/24 08:40 Fluticasone/Salmeterol 115-21 Mcg Inhaler 1 Puff INHALATION Not Given Q12HRT [facility] Timolol Maleate 1 drop 05/30/24 13:30 06/02/24 09:04 Timolol Maleate 0.5% Op Soln 5 Ml Bottle RIGHT EYE 1 drop BID@0900,1200 [facility] Administration Umeclidinium [place] 1 puff 06/02/24 10:55 Umeclidinium [place] 62.5 Mcg Ellipta INHALATION DAILYRT [facility] Radiology Results: ITS Impressions Chest/Abdomen/Pelvis CTA 05/29/24 21:18 IMPRESSION: No CT evidence of acute pulmonary embolus. Scattered mild tree-in-bud opacities as can be seen with atypical infection, ABPA, airways disease, and aspiration. Emphysema and asbestos related pleural disease. Bladder wall thickening may be secondary to cystitis or chronic outlet obstruction from prostatomegaly. Modified Barium Swallow 05/31/24 09:31 IMPRESSION: 1. Normal modified barium swallow. 2. Please refer to the speech therapy report for recommendations.
[2024-06-02] MEDS: guaiFENesin 12 HR 600 MG TABCR 1200 MG PO ×2 (13:52→20:27)
[2024-06-02 17:24] LABS: Mycoplasma IgM Antibody Titer 1275 U/mL
[2024-06-02] MEDS: LATANOPROST 0.005% OP SOLN 2.5 ML BTL 1 DROP RIGHT EYE (20:27)
[2024-06-02] MEDS: GABAPENTIN 300 MG CAPSULE 600 MG PO (20:27)
[2024-06-02] MEDS: FLUTICASONE PROPIONATE 0.05% NA SPR 16 GM BTL (*BKC) 2 SPRAY NASAL (20:27)
[2024-06-02] MEDS: FLUTICASONE/SALMETEROL 115-21 MCG INHALER 1 PUFF 2 PUFF INHALATION (21:07)
[2024-06-03 05:18] VITALS: BP 122/55; PULSE 80; RESP 16; TEMP 36.3; O2SAT 96
[2024-06-03] MEDS: UMECLIDINIUM BROMIDE 62.5 MCG ELLIPTA 1 PUFF INHALATION (08:41)
[2024-06-03] MEDS: FLUTICASONE/SALMETEROL 115-21 MCG INHALER 1 PUFF 2 PUFF INHALATION (08:41)
[2024-06-03] MEDS: PANTOPRAZOLE 40 MG TABLET PO (09:04)
[2024-06-03] MEDS: guaiFENesin 12 HR 600 MG TABCR 1200 MG PO ×2 (09:04→20:52)
[2024-06-03] MEDS: buPROPion HCL SR (12 HR) 150 MG TAB PO ×2 (09:05→16:43)
[2024-06-03] MEDS: ISOSORBIDE MONONITRATE 30 MG TAB.ER.24H PO (09:05)
[2024-06-03] MEDS: LORATADINE 10 MG TABLET PO (09:05)
[2024-06-03] MEDS: predniSONE 20 MG TABLET 40 MG PO (09:05)
[2024-06-03] MEDS: ASPIRIN 81 MG CHEWABLE TABLET PO (09:05)
[2024-06-03] MEDS: AZITHROMYCIN 250 MG TABLET PO (09:05)
[2024-06-03] MEDS: ATORVASTATIN 20 MG TABLET PO (09:05)
[2024-06-03] MEDS: DOXAZOSIN MESYLATE 4 MG TABLET PO (09:05)
[2024-06-03] MEDS: CEFEPIME 2 GM/NS 50 ML 2 GM/50 ML BAG IVPB ×2 (09:06→20:51)
[2024-06-03] MEDS: ENOXAPARIN 40 MG/0.4 ML SYRINGE SUB-Q (09:08)
[2024-06-03] MEDS: TIMOLOL MALEATE 0.5% OP SOLN 5 ML BOTTLE 1 DROP RIGHT EYE ×2 (09:08→12:43)
[2024-06-03] MEDS: BRIMONIDINE TARTRATE 0.2% OP SOLN 5 ML BTL 1 DROP RIGHT EYE ×2 (09:08→12:43)
--- NOTE | 2024-06-03 10:25 | P.PNPL_ITS ---
Progress Note: A&P Assessment and Plan (1) Pneumonia: Qualifiers: Laterality: left Lung location: lower lobe of lung Pneumonia type: due to unspecified organism Qualified Code(s): J18.9 - Pneumonia, unspecified organism Code(s): J18.9 - Pneumonia, unspecified organism Status: Acute Assessment and Plan: 06/02/2024: Is difficult to get a reliable information from the patient. At times he tells me is better than in when he arrived in the ambulance but cannot quantitate this. At times he tells me he is worse. He says that his cough is worse since admission but his phlegm is improved and he no longer has phlegm production. He also tells me that he has thick white phlegm production. Last night he was on room air with saturations 94%. This morning when I enter the room he was on 2 L nasal cannula with 98% sats. I decreased him to room air and he desatted to 89% after 4 minutes and I placed him back on 1 L nasal cannula. He is afebrile. Plan: The patient has tree-in-bud infiltrates that are mild. I suspect this is related to her respiratory viral illness. I will send a respiratory pathogen panel to [facility]. His MRSA swab is negative. COVID, influenza, RSV RT PCR studies negative. Patient is status post ceftriaxone 05/30 to 05/31 and now on cefepime since 05/31, day 3. will continue cefepime. On azithromycin day 4, will continue for 5 days. 06/03/2024: The patient tells me he is better today. Says he is breathing back to his normal. He has a dry cough with minimal production of white phlegm. He is afebrile. He has no wheezing. Room air saturations 91%. Mycoplasma IgM is positive. Plan: Patient with tree-in-bud infiltrates in serum mycoplasma IgM is positive. This is consistent with mycoplasma pneumonia. Continue azithromycin, day 5. Would treat with azithromycin 250 a day times a total of [address] Winters, will follow with you. (2) Emphysema/COPD: Code(s): J43.9 - Emphysema, unspecified Status: Acute Assessment and Plan: Patient carries a diagnosis of COPD. I have no PFTs. CT scan of the chest on 05/29/2024 with moderate apical predominant centrilobular emphysema. He was on no home oxygen. 06/02/2024: Patient has no wheezing today. on 1 L currently. The nurse will try to wean him to maintain sats 90-94%. The patient tells me is difficult for him to expectorate his thick phlegm Plan: I will continue Advair 115-21 at 2 puffs q.12 hours. I will add Incruse Ellipta. I will discontinue DuoNebs. Patient is on prednisone 40 mg a day, day 5 of steroids And will discontinue after today's dose. Patient is on Claritin and Flonase for nasal congestion. Goal saturation 90-94%. Currently requiring 1 L. I will add guaifenesin 1200 mg p.o. b.i.d. 06/03/24: Patient continues to improve. No wheezing today. Overnight oximetry on room air With recording duration 6 hours and 32 minutes. Average saturation 89%. Low saturation 87%. Time with saturation less than or equal to 88% was 87 minutes. Oxygen desaturation index 4.1. Plan: continue Advair 115-21 at 2 puffs q.12 hours, Incruse Ellipta 62.5 at 1 puff q.day. patient has completed 5 days of prednisone and have discontinued. continue Claritin and Flonase for nasal congestion. Goal saturation 90-94%. Currently on room air. Continue guaifenesin 1200 mg p.o. b.i.d. I will perform an overnight oximetry on 2 L nasal cannula. Subjective Date/time seen: 06/03/24 10:25 Interval history: Jun 01, 2024 at 23:30 Room 321 NEW pulmonary consult: Rogerio Vivar is an 88 year old man recently in the hospital for COPD, was admitted 05/24/24 with LLL infiltrate; he was treated with Rocephin and Azithromycin. he had an PT OT evaluation, was ok to go home on eating and drinking at baseline, sent home on Cefdinir and Doxycycline for 5 more days. he returned 05/29 with abdominal painm N/V, weakness and fatigue with cough productive of sputum. He said that the antibiotics made him feel worse. PMH: acute blood loss anemia, colon diverticulosis, diverticular hemorrhage, rectal bleeding, emphysema / COPD, sleep apnea who presented to the ER for evaluation of dark maroon stools. 06/02/2024: Is difficult to get a reliable information from the patient. At times he tells me is better than in when he arrived in the ambulance but cannot quantitate this. At times he tells me he is worse. He says that his cough is worse since admission but his phlegm is improved and he no longer has phlegm production. He also tells me that he has thick white phlegm production. Last night he was on room air with saturations 94%. This morning when I enter the room he was on 2 L nasal cannula with 98% sats. I decreased him to room air and he desatted to 89% after 4 minutes and I placed him back on 1 L nasal cannula. He is afebrile. 06/03/2024: The patient tells me he is better today. Says he is breathing back to his normal. He has a dry cough with minimal production of white phlegm. He has no wheezing. Room air saturations 91%. Mycoplasma IgM is positive. Overnight oximetry on room air With recording duration 6 hours and 32 minutes. Average saturation 89%. Low saturation 87%. Time with saturation less than or equal to 88% was 87 minutes. Oxygen desaturation index 4.1. DATA: 06/02/2024: Overnight oximetry on room air With recording duration 6 hours and 32 minutes. Average saturation 89%. Low saturation 87%. Time with saturation less than or equal to 88% was 87 minutes. Oxygen desaturation index 4.1. * Chest/Abdomen/Pelvis CTA 05/29/24 21:18 IMPRESSION: No CT evidence of acute pulmonary embolus. Scattered mild tree-in-bud opacities as can be seen with atypical infection, ABPA, airways disease, and aspiration. Emphysema and asbestos related pleural disease. Bladder wall thickening may be secondary to cystitis or chronic outlet obstruction from prostatomegaly. Modified Barium Swallow 05/31/24 09:31 IMPRESSION: 1. Normal modified barium swallow. 2. Please refer to the speech therapy report for recommendations. Review of Systems Constitutional: Constitutional: Reports no additional constitutional complaints Eyes: Eyes: Reports no additional eye complaints ENT: Reports system reviewed and no additional complaints, except as documented Cardiovascular: Cardiovascular: Reports no additional cardiovascular complaints Respiratory: Respiratory: Reports no additional respiratory complaints Gastrointestinal: Gastrointestinal: Reports no additional gastrointestinal complaints Musculoskeletal: Musculoskeletal: Reports no additional musculoskeletal complaints Neurologic: Reports system reviewed and no additional complaints, except as documented Psychiatric: Psychiatric: Reports no additional psychiatric complaints Endocrine: Endocrine: Reports no additional endocrine complaints Hematologic/Lymphatic: Hematologic/Lymphatic: Reports no additional hematologic/lymphatic complaints Allergic/Immunologic: Allergic/Immunologic: Reports no additional allergic/immunologic complaints Exam Const: General: cooperative, healthy appearing and comfortable Orie ntation/consciousness: oriented to person, oriented to place and oriented to time HENMT: Head: normal to inspection Ears: hearing grossly normal bilaterally Eyes: General: appearance normal, both eyes and all related structures Neck: Neck: normal visual inspection Chest: Chest palpation & inspection: normal inspection of the chest Resp: Effort & Inspection: normal respiratory effort and able to speak in complete sentences Auscultation: no crackles, no rales, no rhonchi, no wheezes and lung sounds not diminished Cardio: Jugular venous distension: no JVD GI: Inspection: normal to inspection Skin: General skin exam: normal color Neuro: General: oriented to person, oriented to place and oriented to time Extrem: General: normal to inspection Psych: Appearance: grossly normal Objective Data Vital Signs Vital Signs: Vital Signs - 24 hr 06/02/24 14:04 06/02/24 20:09 06/02/24 20:15 Temperature 36.6 C 36.3 C L Pulse Rate 62 63 Respiratory Rate 18 16 Blood Pressure 98/58 L 94/67 L Pulse Oximetry 94 94 97 Oxygen Delivery Nasal Cannula Oxygen Flow Rate 1 06/02/24 21:08 06/03/24 05:18 Temperature 36.3 C L Pulse Rate 80 Respiratory Rate 16 Blood Pressure 122/55 L Pulse Oximetry 97 96 Oxygen Delivery Nasal Cannula Oxygen Flow Rate 1 Intake/Output Intake/Output: Intake & Output 05/31/24 06/01/24 06/02/24 06/03/24 23:59 23:59 23:59 23:59 Intake Total 345 690 980 370 Balance 345 690 980 370 Meds/Results Medications: Active Medications Generic Name Dose Route Start Last Admin Trade Name Freq PRN Reason Stop Dose Admin Acetaminophen 650 mg 05/30/24 02:43 Acetaminophen 325 Mg Tablet PO Q4H PRN Mild Pain (1-3) or Fever Albuterol 2 puff 05/30/24 13:03 Albuterol Sulfate (*Sp) Aerosol 1 Puff INHALATION Q6HRT PRN Wheezing Aspirin 81 mg 05/31/24 09:00 06/03/24 09:05 Aspirin 81 Mg Chewable Tablet PO 81 mg DAILY JAMISON Administration Atorvastatin Calcium 20 mg 05/31/24 09:00 06/03/24 09:05 Atorvastatin 20 Mg Tablet PO 20 mg DAILY JAMISON Administration Azithromycin 250 mg 06/01/24 09:00 06/03/24 09:05 Azithromycin 250 Mg Tablet PO 250 mg DAILY JAMISON Administration Brimonidine Tartrate 1 drop 05/30/24 13:30 06/03/24 09:08 Brimonidine Tartrate 0.2% Op Soln 5 Ml Btl RIGHT EYE 06/29/24 13:29 1 drop BID@0900,1200 JAMISON Administration Bupropion HCl 150 mg 05/30/24 17:00 06/03/24 09:05 Bupropion Hcl Sr (12 Hr) 150 Mg Tab PO 150 mg BID JAMISON Administration Doxazosin Mesylate 4 mg 05/31/24 09:00 06/03/24 09:05 Doxazosin Mesylate 4 Mg Tablet PO 4 mg DAILY JAMISON Administration Enoxaparin Sodium 40 mg 05/30/24 13:00 06/03/24 09:08 Enoxaparin 40 Mg/0.4 Ml Syringe SUB-Q 40 mg DAILY JAMISON Administration Fluticasone Propionate 2 spray 05/30/24 21:00 06/02/24 20:27 Fluticasone Propionate 0.05% Na Spr 16 Gm Btl (*Bkc) NASAL 2 spray HS JAMISON Administration Gabapentin 600 mg 05/30/24 21:00 06/02/24 20:27 Gabapentin 300 Mg Capsule PO 600 mg HS [facility] Administration Guaifenesin 1,200 mg 06/02/24 10:55 06/03/24 09:04 Guaifenesin 12 Hr 600 Mg Tabcr PO 1,200 mg Q12HR JAMISON Administration Cefepime HCl 2 gm in 50 mls @ 100 mls/hr 05/31/24 20:00 06/03/24 09:06 Maxipime 2 Gm/Ns 50 Ml IVPB 100 mls/hr Q12H JAMISON Administration Isosorbide Mononitrate 30 mg 05/31/24 09:00 06/03/24 09:05 Isosorbide Mononitrate 30 Mg Tab.Er.24h PO 30 mg DAILY JAMISON Administration Latanoprost 1 drop 05/30/24 21:00 06/02/24 20:27 Latanoprost 0.005% Op Soln 2.5 Ml Btl RIGHT EYE 1 drop HS JAMISON Administration Loratadine 10 mg 05/31/24 09:00 06/03/24 09:05 Loratadine 10 Mg Tablet PO 10 mg QAM JAMISON Administration Pantoprazole Sodium 40 mg 05/31/24 09:00 06/03/24 09:04 Pantoprazole 40 Mg Tablet PO 40 mg DAILY JAMISON Administration Fluticasone/Salmeterol 2 puff 05/30/24 20:00 06/03/24 08:41 Fluticasone/Salmeterol 115-21 Mcg Inhaler 1 Puff INHALATION 2 puff Q12HRT JAMISON Administration Timolol Maleate 1 drop 05/30/24 13:30 06/03/24 09:08 Timolol Maleate 0.5% Op Soln 5 Ml Bottle RIGHT EYE 1 drop BID@0900,1200 JAMISON Administration Umeclidinium [place] 1 puff 06/02/24 10:55 06/03/24 08:41 Umeclidinium [place] 62.5 Mcg Ellipta INHALATION 1 puff DAILYRT JAMISON Administration Radiology Results: ITS Impressions Chest/Abdomen/Pelvis CTA 05/29/24 21:18 IMPRESSION: No CT evidence of acute pulmonary embolus. Scattered mild tree-in-bud opacities as can be seen with atypical infection, ABPA, airways disease, and aspiration. Emphysema and asbestos related pleural disease. Bladder wall thickening may be secondary to cystitis or chronic outlet obstruction from prostatomegaly. Modified Barium Swallow 05/31/24 09:31 IMPRESSION: 1. Normal modified barium swallow. 2. Please refer to the speech therapy report for recommendations. Labs Labs: Laboratory Results - last 24 hr 05/30/24 14:52 Mycoplasma pneumon IgM 1275 H
[2024-06-03 14:00] VITALS: BP 105/57; PULSE 71; RESP 16; TEMP 36.5; O2SAT 94
--- NOTE | 2024-06-03 15:08 | P.PNIM_ITS ---
Progress Note: A&P Assessment and Plan (1) Pneumonia: Qualifiers: Laterality: left Lung location: lower lobe of lung Pneumonia type: due to unspecified organism Qualified Code(s): J18.9 - Pneumonia, unspecified organism Code(s): J18.9 - Pneumonia, unspecified organism Status: Acute Assessment and Plan: Patient presents back to the ED for persistent cough and SOB. CT Ch showing no PE but emphysematous changes, scattered tree-in-bud opacities and a thin web in the mid trachea. Differential noted. Checking for atypical infections. MRSA nasal swab negative. Speech therapy felt patient did well without evidence of aspiration but recommended Level 5 diet due to lack of dentures. Sputum Cx negative. BCx from last admission negative. Currently on Rocephin and Azithromycin without much benefit. Switched to Cefepime to cover for pseudomonas. He weak today but unclear if he is back to his baseline. Mycoplasma IgM positive. Continue Azithro for atypicals and Cefepime Continue Flonase and Clartin for sinus/post-nasal drainage. Will need O2 at night. Home O2 evaluation in the morning. Will need prolonged (10 day) course of Azithromycin. Pulm following and appreciate their input. Discussed. Mucinex added. (2) Emphysema/COPD: Code(s): J43.9 - Emphysema, unspecified Status: Acute Assessment and Plan: CTA chest as above. Hx of smoking but also consider other etiologies for his lung scarring/emphysema. Treated with Yuliya-Medrol once in ED and then started on oral steroids. Completed Prednisone. Continue DuoNebs. Continue Advair, Incruse (3) Abnormal EKG: Code(s): R94.31 - Abnormal electrocardiogram [ECG] [EKG] Status: Acute Assessment and Plan: EKG showing Rt BBB, ST depression similar to prior EKGs. Troponin negative x3 last admission and x1 this admission. Repeat Troponin negative. Echo showing EF 65-70%, grade I diastolic dysfunction, bicuspid AV but no or AI. Follow clinically. (4) Sleep apnea: Code(s): G47.30 - Sleep apnea, unspecified Status: Acute Assessment and Plan: Patient is refusing CPAP since he hasn't used this in over 3 years. Patient spent 87 minutes with SpO2<88%. Repeat overnight pulse ox tonight. (5) Debility: Code(s): R53.81 - Other malaise Status: Acute Assessment and Plan: Patient with diffuse weakness. B12, folate and Vit D normal. Not an alcoholic. Could not get brain MRI because patient couldnt lie flat but clinically much better so felt related to PNA. Continue PT/OT Plan DVT prophylaxis - Lovenox Code status - full Subjective Date/time seen: 06/03/24 15:08 Interval history: 88yo male with MARK, COPD and who was recently discharged from [facility] for PNA returns to the ED for cough. Slept off and on. No chest pain or shortness of breath. No nausea or vomiting. Cough is better. Eating better. Exam Narrative: AF 97.7 105/57 71 16 94% ra Gen - NARD Chest - Left basilar crackles. CV - RRR S1/S2 Abd - soft, NT, ND, +BS Ext - no pedal edema Psych - normal mood and affect. Skin - warm and dry. Objective Data Vital Signs Vital Signs: Vital Signs - 24 hr 06/02/24 20:09 06/02/24 20:15 06/02/24 21:08 Temperature 97.4 F L Pulse Rate 63 Respiratory Rate 16 Blood Pressure 94/67 L Pulse Oximetry 94 97 97 Oxygen Delivery Nasal Cannula Nasal Cannula Oxygen Flow Rate 1 1 06/03/24 05:18 06/03/24 08:00 06/03/24 14:00 Temperature 97.3 F L 97.7 F Pulse Rate 80 71 Respiratory Rate 16 16 Blood Pressure 122/55 L 105/57 L Pulse Oximetry 96 94 Oxygen Delivery Room Air Oxygen Flow Rate Intake/Output Intake/Output: Intake & Output 05/31/24 06/01/24 06/02/24 06/03/24 23:59 23:59 23:59 23:59 Intake Total 345 690 980 370 Balance 345 690 980 370 Meds/Results Medications: Active Medications Generic Name Dose Route Start Last Admin Trade Name Freq PRN Reason Stop Dose Admin Acetaminophen 650 mg 05/30/24 02:43 Acetaminophen 325 Mg Tablet PO Q4H PRN Mild Pain (1-3) or Fever Albuterol 2 puff 05/30/24 13:03 Albuterol Sulfate (*Sp) Aerosol 1 Puff INHALATION Q6HRT PRN Wheezing Aspirin 81 mg 05/31/24 09:00 06/03/24 09:05 Aspirin 81 Mg Chewable Tablet PO 81 mg DAILY JAMISON Administration Atorvastatin Calcium 20 mg 05/31/24 09:00 06/03/24 09:05 Atorvastatin 20 Mg Tablet PO 20 mg DAILY JAMISON Administration Azithromycin 250 mg 06/01/24 09:00 06/03/24 09:05 Azithromycin 250 Mg Tablet PO 250 mg DAILY JAMISON Administration Brimonidine Tartrate 1 drop 05/30/24 13:30 06/03/24 09:08 Brimonidine Tartrate 0.2% Op Soln 5 Ml Btl RIGHT EYE 06/29/24 13:29 1 drop BID@0900,1200 JAMISON Administration Bupropion HCl 150 mg 05/30/24 17:00 06/03/24 09:05 Bupropion Hcl Sr (12 Hr) 150 Mg Tab PO 150 mg BID JAMISON Administration Doxazosin Mesylate 4 mg 05/31/24 09:00 06/03/24 09:05 Doxazosin Mesylate 4 Mg Tablet PO 4 mg DAILY JAMISON Administration Enoxaparin Sodium 40 mg 05/30/24 13:00 06/03/24 09:08 Enoxaparin 40 Mg/0.4 Ml Syringe SUB-Q 40 mg DAILY JAMISON Administration Fluticasone Propionate 2 spray 05/30/24 21:00 06/02/24 20:27 Fluticasone Propionate 0.05% Na Spr 16 Gm Btl (*Bkc) NASAL 2 spray HS JAMISON Administration Gabapentin 600 mg 05/30/24 21:00 06/02/24 20:27 Gabapentin 300 Mg Capsule PO 600 mg HS JAMISON Administration Guaifenesin 1,200 mg 06/02/24 10:55 06/03/24 09:04 Guaifenesin 12 Hr 600 Mg Tabcr PO 1,200 mg Q12HR JAMISON Administration Cefepime HCl 2 gm in 50 mls @ 100 mls/hr 05/31/24 20:00 06/03/24 09:06 Maxipime 2 Gm/Ns 50 Ml IVPB 100 mls/hr Q12H JAMISON Administration Isosorbide Mononitrate 30 mg 05/31/24 09:00 06/03/24 09:05 Isosorbide Mononitrate 30 Mg Tab.Er.24h PO 30 mg DAILY JAMISON Administration Latanoprost 1 drop 05/30/24 21:00 06/02/24 20:27 Latanoprost 0.005% Op Soln 2.5 Ml Btl RIGHT EYE 1 drop HS JAMISON Administration Loratadine 10 mg 05/31/24 09:00 06/03/24 09:05 Loratadine 10 Mg Tablet PO 10 mg QAM JAMISON Administration Pantoprazole Sodium 40 mg 05/31/24 09:00 06/03/24 09:04 Pantoprazole 40 Mg Tablet PO 40 mg DAILY JAMISON Administration Fluticasone/Salmeterol 2 puff 05/30/24 20:00 06/03/24 08:41 Fluticasone/Salmeterol 115-21 Mcg Inhaler 1 Puff INHALATION 2 puff Q12HRT JAMISON Administration Timolol Maleate 1 drop 05/30/24 13:30 06/03/24 09:08 Timolol Maleate 0.5% Op Soln 5 Ml Bottle RIGHT EYE 1 drop BID@0900,1200 JAMISON Administration Umeclidinium [place] 1 puff 06/02/24 10:55 06/03/24 08:41 Umeclidinium [place] 62.5 Mcg Ellipta INHALATION 1 puff DAILYRT JAMISON Administration Radiology Results: ITS Impressions Chest/Abdomen/Pelvis CTA 05/29/24 21:18 IMPRESSION: No CT evidence of acute pulmonary embolus. Scattered mild tree-in-bud opacities as can be seen with atypical infection, ABPA, airways disease, and aspiration. Emphysema and asbestos related pleural disease. Bladder wall thickening may be secondary to cystitis or chronic outlet obstruction from prostatomegaly. Modified Barium Swallow 05/31/24 09:31 IMPRESSION: 1. Normal modified barium swallow. 2. Please refer to the speech therapy report for recommendations. Labs Labs: Laboratory Results - last 24 hr 05/30/24 14:52 Copper 104 Mycoplasma pneumon IgM 1275 H
[2024-06-03 20:05] VITALS: BP 121/53; PULSE 71; RESP 16; TEMP 36.3; O2SAT 90
[2024-06-03] MEDS: LATANOPROST 0.005% OP SOLN 2.5 ML BTL 1 DROP RIGHT EYE (20:52)
[2024-06-03] MEDS: FLUTICASONE PROPIONATE 0.05% NA SPR 16 GM BTL (*BKC) 2 SPRAY NASAL (20:52)
[2024-06-03] MEDS: GABAPENTIN 300 MG CAPSULE 600 MG PO (20:52)
[2024-06-03 21:00] VITALS: PULSE 71; RESP 16; O2SAT 94
[2024-06-04] VITALS: O2SAT 94
[2024-06-04 05:49] VITALS: BP 134/58; PULSE 67; RESP 16; TEMP 36.4; O2SAT 99
[2024-06-04 08:48] VITALS: PULSE 72; RESP 20; O2SAT 92
[2024-06-04] MEDS: FLUTICASONE/SALMETEROL 115-21 MCG INHALER 1 PUFF 2 PUFF INHALATION (08:48)
[2024-06-04] MEDS: UMECLIDINIUM BROMIDE 62.5 MCG ELLIPTA 1 PUFF INHALATION (08:48)
[2024-06-04] MEDS: ENOXAPARIN 40 MG/0.4 ML SYRINGE SUB-Q (09:11)
[2024-06-04] MEDS: guaiFENesin 12 HR 600 MG TABCR 1200 MG PO (09:11)
[2024-06-04] MEDS: PANTOPRAZOLE 40 MG TABLET PO (09:11)
[2024-06-04] MEDS: DOXAZOSIN MESYLATE 4 MG TABLET PO (09:11)
[2024-06-04] MEDS: ATORVASTATIN 20 MG TABLET PO (09:11)
[2024-06-04] MEDS: AZITHROMYCIN 250 MG TABLET PO (09:11)
[2024-06-04] MEDS: LORATADINE 10 MG TABLET PO (09:11)
[2024-06-04] MEDS: ASPIRIN 81 MG CHEWABLE TABLET PO (09:11)
[2024-06-04] MEDS: ISOSORBIDE MONONITRATE 30 MG TAB.ER.24H PO (09:12)
[2024-06-04] MEDS: buPROPion HCL SR (12 HR) 150 MG TAB PO (09:12)
[2024-06-04] MEDS: BRIMONIDINE TARTRATE 0.2% OP SOLN 5 ML BTL 1 DROP RIGHT EYE ×2 (09:15→12:44)
[2024-06-04] MEDS: TIMOLOL MALEATE 0.5% OP SOLN 5 ML BOTTLE 1 DROP RIGHT EYE ×2 (09:16→12:44)
[2024-06-04 11:50] VITALS: PULSE 69; O2SAT 92
[2024-06-04 12:10] VITALS: PULSE 80; O2SAT 94
--- NOTE | 2024-06-04 12:17 | P.PNPL_ITS ---
Progress Note: A&P Assessment and Plan (1) Pneumonia: Qualifiers: Laterality: left Lung location: lower lobe of lung Pneumonia type: due to unspecified organism Qualified Code(s): J18.9 - Pneumonia, unspecified organism Code(s): J18.9 - Pneumonia, unspecified organism Status: Acute Assessment and Plan: 06/02/2024: Is difficult to get a reliable information from the patient. At times he tells me is better than in when he arrived in the ambulance but cannot quantitate this. At times he tells me he is worse. He says that his cough is worse since admission but his phlegm is improved and he no longer has phlegm production. He also tells me that he has thick white phlegm production. Last night he was on room air with saturations 94%. This morning when I enter the room he was on 2 L nasal cannula with 98% sats. I decreased him to room air and he desatted to 89% after 4 minutes and I placed him back on 1 L nasal cannula. He is afebrile. Plan: The patient has tree-in-bud infiltrates that are mild. I suspect this is related to her respiratory viral illness. I will send a respiratory pathogen panel to [facility]. His MRSA swab is negative. COVID, influenza, RSV RT PCR studies negative. Patient is status post ceftriaxone 05/30 to 05/31 and now on cefepime since 05/31, day 3. will continue cefepime. On azithromycin day 4, will continue for 5 days. 06/03/2024: The patient tells me he is better today. Says he is breathing back to his normal. He has a dry cough with minimal production of white phlegm. He is afebrile. He has no wheezing. Room air saturations 91%. Mycoplasma IgM is positive. Plan: Patient with tree-in-bud infiltrates in serum mycoplasma IgM is positive. This is consistent with mycoplasma pneumonia. Continue azithromycin, day 5. Would treat with azithromycin 250 a day times a total of 10 days. 06/04/2024: The patient tells me he is breathing back to his normal. His cough is improved. Currently is on room air with saturations 92%. From a pulmonary perspective patient is ready to be discharged on these pulmonary medications: Levaquin 750 mg p.o. q.day to complete a 7 day course. Azithromycin 250 mg p.o. q.day to completed 10 day course Advair 115-21 at 2 puffs q.12 hours Incruse Ellipta 62.5 mcg at 1 puff q.day Guaifenesin 1200 mg p.o. b.i.d. p.r.n. congestion Claritin 10 mg p.o. q.day Flonase 2 sprays each nostril q.a.m. Rescue albuterol 2 puffs q.4 hours p.r.n. shortness of breath or wheezing Oxygen at rest and with activity per formal home O2 assessment which I have ordered. Oxygen 2 L when he naps or sleeps. Patient to follow-up with his PCP. Discussed with Dr. Winters, will sign off, call with questions. (2) Emphysema/COPD: Code(s): J43.9 - Emphysema, unspecified Status: Acute Assessment and Plan: Patient carries a diagnosis of COPD. I have no PFTs. CT scan of the chest on 05/29/2024 with moderate apical predominant centrilobular emphysema. He was on no home oxygen. 06/02/2024: Patient has no wheezing today. on 1 L currently. The nurse will try to wean him to maintain sats 90-94%. The patient tells me is difficult for him to expectorate his thick phlegm Plan: I will continue Advair 115-21 at 2 puffs q.12 hours. I will add Incruse Ellipta. I will discontinue DuoNebs. Patient is on prednisone 40 mg a day, day 5 of steroids And will discontinue after today's dose. Patient is on Claritin and Flonase for nasal congestion. Goal saturation 90-94%. Currently requiring 1 L. I will add guaifenesin 1200 mg p.o. b.i.d. 06/03/24: Patient continues to improve. No wheezing today. Overnight oximetry on room air With recording duration 6 hours and 32 minutes. Average saturation 89%. Low saturation 87%. Time with saturation less than or equal to 88% was 87 minutes. Oxygen desaturation index 4.1. Plan: continue Advair 115-21 at 2 puffs q.12 hours, Incruse Ellipta 62.5 at 1 puff q.day. patient has completed 5 days of prednisone and have discontinued. continue Claritin and Flonase for nasal congestion. Goal saturation 90-94%. Currently on room air. Continue guaifenesin 1200 mg p.o. b.i.d. I will perform an overnight oximetry on 2 L nasal cannula. 06/04/24 : Patient continues to improve and states he is at his baseline. Patient had an overnight oximetry on 2 L with recording duration 6 hours and 32 minutes, average saturation 94%, low saturation 78%. Time with saturation less than or equal to 88% was 0 minutes, oxygen desaturation index 2.1. Plan: Continue Advair, Incruse Ellipta, guaifenesin, Claritin and Flonase. Would consider PFTs as an outpatient to assess severity of his lung disease. Subjective Date/time seen: 06/04/24 12:17 Interval history: Jun 01, 2024 at 23:30 Room 321 NEW pulmonary consult: Rogerio Vivar is an 88 year old man recently in the hospital for COPD, was admitted 05/24/24 with LLL infiltrate; he was treated with Rocephin and Azithromycin. he had an PT OT evaluation, was ok to go home on 05/26 eating and drinking at baseline, sent home on Cefdinir and Doxycycline for 5 more days. he returned 05/29 with abdominal painm N/V, weakness and fatigue with cough productive of sputum. He said that the antibiotics made him feel worse. PMH: acute blood loss anemia, colon diverticulosis, diverticular hemorrhage, rectal bleeding, emphysema / COPD, sleep apnea who presented to the ER for evaluation of dark maroon stools. 06/02/2024: Is difficult to get a reliable information from the patient. At times he tells me is better than in when he arrived in the ambulance but cannot quantitate this. At times he tells me he is worse. He says that his cough is worse since admission but his phlegm is improved and he no longer has phlegm production. He also tells me that he has thick white phlegm production. Last night he was on room air with saturations 94%. This morning when I enter the room he was on 2 L nasal cannula with 98% sats. I decreased him to room air and he desatted to 89% after 4 minutes and I placed him back on 1 L nasal cannula. He is afebrile. 06/03/2024: The patient tells me he is better today. Says he is breathing back to his normal. He has a dry cough with minimal production of white phlegm. He has no wheezing. Room air saturations 91%. Mycoplasma IgM is positive. Overnight oximetry on room air With recording duration 6 hours and 32 minutes. Average saturation 89%. Low saturation 87%. Time with saturation less than or equal to 88% was 87 minutes. Oxygen desaturation index 4.1. 06/04/2024: The patient tells me he is breathing back to his normal. His cough is improved. Currently is on room air with saturations 92%. Patient had an overnight oximetry on 2 L with recording duration 6 hours and 32 minutes, average saturation 94%, low saturation 78%. Time with saturation less than or equal to 88% was 0 minutes, oxygen desaturation index 2.1. DATA: 06/02/2024: Overnight oximetry on room air With recording duration 6 hours and 32 minutes. Average saturation 89%. Low saturation 87%. Time with satur ation less than or equal to 88% was 87 minutes. Oxygen desaturation index 4.1. * Chest/Abdomen/Pelvis CTA 05/29/24 21:18 IMPRESSION: No CT evidence of acute pulmonary embolus. Scattered mild tree-in-bud opacities as can be seen with atypical infection, ABPA, airways disease, and aspiration. Emphysema and asbestos related pleural disease. Bladder wall thickening may be secondary to cystitis or chronic outlet obstruction from prostatomegaly. Modified Barium Swallow 05/31/24 09:31 IMPRESSION: 1. Normal modified barium swallow. 2. Please refer to the speech therapy report for recommendations. Review of Systems Constitutional: Constitutional: Reports no additional constitutional complaints Eyes: Eyes: Reports no additional eye complaints ENT: Reports system reviewed and no additional complaints, except as documented Cardiovascular: Cardiovascular: Reports no additional cardiovascular com plaints Respiratory: Respiratory: Reports no additional respiratory complaints Gastrointestinal: Gastrointestinal: Reports no additional gastrointestinal complaints Musculoskeletal: Musculoskeletal: Reports no additional musculoskeletal c omplaints Neurologic: Reports system reviewed and no additional complaints, except as documented Psychiatric: Psychiatric: Reports no additional psychiatric complaints Endocrine: Endocrine: Reports no additional endocrine complaints Hematologic/Lymphatic: Hematologic/Lymphatic: Reports no additional hematologic/lymphatic complaints Allergic/Immunologic: Allergic/Immunologic: Reports no additional allergic/immunologic complaints Exam Const: General: cooperative, healthy appearing and comfortable Orientation/consciousness: oriented to person, oriented to place and oriented to time HENMT: Head: normal to inspection Ears: hearing grossly normal bilaterally Eyes: General: appearance normal, both eyes and all related structures Neck: Neck: normal visual inspection Chest: Chest palpation & inspection: normal inspection of the chest Resp: Effort & Inspection: normal respiratory effort and able to speak in complete sentences Auscultation: no crackles, no rales, no rhonchi, no wheezes and lung sounds not diminished Cardio: Jugular venous distension: no JVD GI: Inspection: normal to inspection Skin: General skin exam: normal color Neuro: General: oriented to person, oriented to place and oriented to time Extrem: General: normal to inspection Psych: Appearance: grossly normal Objective Data Vital Signs Vital Signs: Vital Signs - 24 hr 06/03/24 14:00 06/03/24 20:05 06/03/24 21:00 Temperature 36.5 C 36.3 C L Pulse Rate 71 71 71 Respiratory Rate 16 16 16 Blood Pressure 105/57 L 121/53 L Pulse Oximetry 94 90 94 Oxygen Delivery Room Air Oxygen Flow Rate Fraction of Inspired Oxygen 28 06/04/24 00:00 06/04/24 05:49 06/04/24 08:48 Temperature 36.4 C L Pulse Rate 67 Respiratory Rate 16 Blood Pressure 134/58 L Pulse Oximetry 94 99 92 Oxygen Delivery Nasal Cannula Room Air Oxygen Flow Rate 2 Fraction of Inspired Oxygen 21 06/04/24 08:48 Temperature Pulse Rate 72 Respiratory Rate 20 Blood Pressure Pulse Oximetry Oxygen Delivery Oxygen Flow Rate Fraction of Inspired Oxygen Intake/Output Intake/Output: Intake & Output 06/01/24 06/02/24 06/03/24 06/04/24 23:59 23:59 23:59 23:59 Intake Total 970 712 6912 670 Balance 811 853 2849 670 Meds/Results Medications: Active Medications Generic Name Dose Route Start Last Admin Trade Name Freq PRN Reason Stop Dose Admin Acetaminophen 650 mg 05/30/24 02:43 Acetaminophen 325 Mg Tablet PO Q4H PRN Mild Pain (1-3) or Fever Albuterol 2 puff 05/30/24 13:03 Albuterol Sulfate (*Sp) Aerosol 1 Puff INHALATION Q6HRT PRN Wheezing Aspirin 81 mg 05/31/24 09:00 06/04/24 09:11 Aspirin 81 Mg Chewable Tablet PO 81 mg DAILY JAMISON Administration Atorvastatin Calcium 20 mg 05/31/24 09:00 06/04/24 09:11 Atorvastatin 20 Mg Tablet PO 20 mg DAILY JAMISON Administration Azithromycin 250 mg 06/01/24 09:00 06/04/24 09:11 Azithromycin 250 Mg Tablet PO 250 mg DAILY JAMISON Administration Brimonidine Tartrate 1 drop 05/30/24 13:30 06/04/24 09:15 Brimonidine Tartrate 0.2% Op Soln 5 Ml Btl RIGHT EYE 06/29/24 13:29 1 drop BID@0900,1200 JAMISON Administration Bupropion HCl 150 mg 05/30/24 17:00 06/04/24 09:12 Bupropion Hcl Sr (12 Hr) 150 Mg Tab PO 150 mg BID JAMISON Administration Doxazosin Mesylate 4 mg 05/31/24 09:00 06/04/24 09:11 Doxazosin Mesylate 4 Mg Tablet PO 4 mg DAILY JAMISON Administration Enoxaparin Sodium 40 mg 05/30/24 13:00 06/04/24 09:11 Enoxaparin 40 Mg/0.4 Ml Syringe SUB-Q 40 mg DAILY JAMISON Administration Fluticasone Propionate 2 spray 05/30/24 21:00 06/03/24 20:52 Fluticasone Propionate 0.05% Na Spr 16 Gm Btl (*Bkc) NASAL 2 spray HS JAMISON Administration Gabapentin 600 mg 05/30/24 21:00 06/03/24 20:52 Gabapentin 300 Mg Capsule PO 600 mg HS JAMISON Administration Guaifenesin 1,200 mg 06/02/24 10:55 06/04/24 09:11 Guaifenesin 12 Hr 600 Mg Tabcr PO 1,200 mg Q12HR JAMISON Administration Cefepime HCl 2 gm in 50 mls @ 100 mls/hr 05/31/24 20:00 06/03/24 21:21 Maxipime 2 Gm/Ns 50 Ml IVPB Infused Q12H JAMISON Infusion Isosorbide Mononitrate 30 mg 05/31/24 09:00 06/04/24 09:12 Isosorbide Mononitrate 30 Mg Tab.Er.24h PO 30 mg DAILY JAMISON Administration Latanoprost 1 drop 05/30/24 21:00 06/03/24 20:52 Latanoprost 0.005% Op Soln 2.5 Ml Btl RIGHT EYE 1 drop HS JAMISON Administration Loratadine 10 mg 05/31/24 09:00 06/04/24 09:11 Loratadine 10 Mg Tablet PO 10 mg QAM JAMISON Administration Pantoprazole Sodium 40 mg 05/31/24 09:00 06/04/24 09:11 Pantoprazole 40 Mg Tablet PO 40 mg DAILY JAMISON Administration Fluticasone/Salmeterol 2 puff 05/30/24 20:00 06/04/24 08:48 Fluticasone/Salmeterol 115-21 Mcg Inhaler 1 Puff INHALATION 2 puff Q12HRT JAMISON Administration Timolol Maleate 1 drop 05/30/24 13:30 06/04/24 09:16 Timolol Maleate 0.5% Op Soln 5 Ml Bottle RIGHT EYE 1 drop BID@0900,1200 JAMISON Administration Umeclidinium [place] 1 puff 06/02/24 10:55 06/04/24 08:48 Umeclidinium [place] 62.5 Mcg Ellipta INHALATION 1 puff DAILYRT JAMISON Administration Radiology Results: ITS Impressions Chest/Abdomen/Pelvis CTA 05/29/24 21:18 IMPRESSION: No CT evidence of acute pulmonary embolus. Scattered mild tree-in-bud opacities as can be seen with atypical infection, ABPA, airways disease, and aspiration. Emphysema and asbestos related pleural disease. Bladder wall thickening may be secondary to cystitis or chronic outlet obstruction from prostatomegaly. Modified Barium Swallow 05/31/24 09:31 IMPRESSION: 1. Normal modified barium swallow. 2. Please refer to the speech therapy report for recommendations. Labs Labs: Laboratory Results - last 24 hr 05/30/24 14:52 Copper 104
[2024-06-04 12:20] VITALS: PULSE 70; O2SAT 92
[2024-06-04] MEDS: CEFEPIME 2 GM/NS 50 ML 2 GM/50 ML BAG IVPB (12:44)
--- NOTE | 2024-06-04 13:10 | P.DS_ITS ---
DS: Admitting Diagnosis Discharge Date 06/04/24 Admitting Diagnosis Cough DS: Discharge Diagnosis Discharge Diagnosis (1) Pneumonia: Qualifiers: Laterality: left Lung location: lower lobe of lung Pneumonia type: due to unspecified organism Qualified Code(s): J18.9 - Pneumonia, unspecified organism Code(s): J18.9 - Pneumonia, unspecified organism Status: Acute (2) Emphysema/COPD: Code(s): J43.9 - Emphysema, unspecified Status: Acute (3) Abnormal EKG: Code(s): R94.31 - Abnormal electrocardiogram [ECG] [EKG] Status: Acute (4) Sleep apnea: Code(s): G47.30 - Sleep apnea, unspecified Status: Acute (5) Debility: Code(s): R53.81 - Other malaise Status: Acute DS: Summary Hospital Course Reason for hospitalization: 88yo male with MARK, COPD and who was recently discharged from [facility] for PNA returns to the ED for cough. Please see H&P for details. Hospital Course: Patient presented back to the ED for persistent cough and SOB. CT Chest showing no PE but emphysematous changes, scattered tree-in-bud opacities and a thin web in the mid trachea. Differential noted. We checked for atypical infections. MRSA nasal swab negative. Influenza, RSV adn COVID PCR was negative. Mycoplasma IgM positive. Speech therapy felt patient did well without evidence of aspiration but recommended Level 5 diet due to lack of dentures. Sputum Cx negative. BCx from last admission negative. Started on Rocephin and Azithromycin without much benefit and was on this regiment last admission. Switched Rocephin to Cefepime to cover for pseudomonas. Flonase and Clartin added for sinus/post-nasal drainage. Pulmonary was consulted. Patient will need O2 at night. Home O2 evaluation showing no oxygen requirement while awake. Plan for 10 day course of Azithromycin. Also treated with Yuliya-Medrol once in ED and then started on oral steroids. He completed Prednisone. We continued Advair and Incruse added. EKG showing Rt BBB, ST depression similar to prior EKGs. Troponin negative x3 last admission and x2 this admission. Echo showing EF 65-70%, grade I diastolic dysfunction, bicuspid AV but no or AI. Patient with MARK but refusing CPAP since he hasn't used this in over 3 years. Patient spent 87 minutes with SpO2<88%. Patient with diffuse weakness. B12, folate and Vit D normal. Not an alcoholic. He worked with PT/OT. He overall did well and was able to be discharged home on 06/04/24. Status at Discharge Cognitive/behavioral status at discharge: stable Time Spent with Patient Time attestation: Total time spent providing and/or coordinating discharge services: 35 minutes Time spent: Greater than 30 minutes Exam Narrative: AF 97.5 134/58 70 20 92% ra Gen - NARD Chest - Left basilar crackles o/w clear CV - RRR S1/S2 Abd - soft, NT, ND, +BS Ext - no pedal edema Psych - normal mood and affect. Skin - warm and dry. Discharge Plan Discharge Attending physician on discharge: Moshe Winters Consulting providers: Maren Haro Discharging Clinician: Moshe Winters Anticipated Discharge Date/Time: 06/04/24 13:25 Patient Disposition: Home, Self-Care Activity: as tolerated Diet: regular Discharge Instructions: Avoid using all products that contain tobacco or nicotine. You qualify for home oxygen while you sleep. Oxygen at home has been set up. Wear oxygen at 2Liters/min while sleeping at night and with naps. You do not need oxygen when you are awake. Please complete your antibiotic course even if you are starting to feel well. You are going home with 2 antibiotics -- Azithromycin 250mg: Take daily through 06/08/24 -- Levofloxacin 750mg: Take this evening (06/04/24) and again on the evening of 06/06/24. Take precautions to avoid falls. Rise slowly from a lying or sitting position. Pause before standing or walking. Contact your doctor or call 911 and come to the Emergency Room if you have increasing shortness of breath or other worrisome symptoms. Avoid NSAIDs (ibuprofen, naproxen, Aleve). Tylenol is safe to take. Follow-up with your primary care provider in 1-2 weeks. Please call for appointment. Thank you for using [facility] for your health care needs. Patient Instructions: Antibiotic Form Patient Language: Yoruba Stand Alone Forms: General Discharge Information Follow-up/Referrals: Randy,Irwin Black MD [Primary Care Provider] - Call for Appointment Discharge Medications: New fluticasone propionate 50 mcg/actuation [place],Suspension 2 spray intranasal HS Qty: 16 0RF loratadine 10 mg Tablet 10 mg PO QAM Qty: 30 0RF levofloxacin 750 mg tablet 750 mg PO Q48H Qty: 2 0RF Rx Instructions: take tonight (06/04/24) and in the evening of 06/06/24 azithromycin [Zithromax] 250 mg Tablet 250 mg PO DAILY Qty: 4 0RF guaifenesin [Mucus Relief ER] 600 mg Tablet Extended Release 12hr 1,200 mg PO Q12HR 7 Days Qty: 28 0RF Incruse Ellipta 62.5 mcg/actuation Blister With Device 1 inh inhalation DAILYRT Qty: 30 0RF Continued bupropion HCl 150 mg tablet sustained-release 12 hr 150 mg PO BID atorvastatin 20 mg tablet 20 mg PO DAILY isosorbide mononitrate 30 mg tablet extended release 24 hr 30 mg PO DAILY doxazosin 4 mg tablet 4 mg PO DAILY budesonide-formoterol [Symbicort] 160-4.5 mcg/actuation HFA aerosol inhaler 2 puff inhalation BID Aspir-81 81 mg PO DAILY latanoprost 0.005 % drops 1 drp RIGHT EYE HS albuterol sulfate 90 mcg/actuation HFA aerosol inhaler 2 puff INHALATION PRN PRN (Reason: Wheezing) brimonidine-timolol [Combigan] 0.2-0.5 % drops 1 drp RIGHT EYE .COMPLEX Rx Instructions: 1 drop into right eye at 0900 and 1200; omeprazole 40 mg capsule,delayed release(DR/EC) 40 mg PO DAILY gabapentin 600 mg tablet 600 mg PO HS Discontinued gabapentin 300 mg capsule 600 mg PO DAILY cefdinir 300 mg capsule 300 mg PO Q12H 5 Days Qty: 10 0RF doxycycline hyclate 100 mg capsule 100 mg PO BID 5 Days Qty: 10 0RF Date of admission: 06/02/24 17:13 Primary Care Provider: RandyIrwin Admitting Provider: Cory Galvez Attending physician on admission: Croy Galvez Condition: Stable Hospitalist MIPS Heart Failure (Exclusion) Patient has history of Heart Transplant or Left Ventricular Assistive Device?: No IF YES, STOP HERE Heart Failure (Qualifier) Patient has current or prior documentation of LVEF less than or equal to 40%, or mod/servere depressed LVSF?: No IF NO, STOP HERE
--- NOTE | 2024-06-04 14:03 | PCRCNOTE ---
Pt requires 2 L home O2 with sleep only. Set up with [facility]. They will be bringing in a wheeled home concentrator to Resp dept crispin, we will give to pt at d/c.
--- OUTSIDE RECORDS SUMMARY | 2024-06-06 00:24 | XMS_ITS | Encounter Summary ---
Author Organization [facility] Address [address] [place] [address]. [place], [place] [id number] [place] [id number] Care Team Providers Care Gold Miner Name Role Phone Unavailable Primary Care Provider Unavailabl e Encounter Details Date Type Department Care Team (Late st Contact Info) Description 02/03/1999 Abstract [place] [address] , Generic Conversion, Social History Tobacco Use [...]
--- OUTSIDE RECORDS SUMMARY | 2024-06-06 00:24 | XMS_ITS | Encounter Summary ---
Author Organization [facility] Address [facility] [facility]. [place], [place] [id number] [place] [id number] Care Team Providers Care Router Operator Radial Name Role Phone Unavailable Primary Care Provider Unavailabl e Encounter Details Date Type Department Care Team (Late st Contact Info) Description 04/08/[address] [facility] [address] [place] [address] , Leighton Carlos MD Social History Tobacco [...]
--- OUTSIDE RECORDS SUMMARY | 2024-06-06 00:24 | XMS_ITS | CONTINUITY OF CARE DOCUMENT ---
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 Yaw Thacker MD Hyperlipidemia active Yaw Thacker MD ENCOUNTERS Date Type Provider Location Encounter Diag nosis - In-person encounter Office Visit Yaw Thacker MD [facility] Lung nodulesCoronavirus infection, 05/2021 - In-person encounter Office Visit Yaw Thacker MD [facility] - In-person encounter Office Visit Yaw Thacker MD [facility] - In-person encounter Office Visit Yaw Thacker MD [facility] - In-person encounter Office Visit Yaw Thacker MD [facility] - In-person encounter Office Visit Yaw Thacker MD [facility] Carotid artery disease s/p L CEA - In-person encounter Office Visit Yaw Thacker MD [facility] CAD-09/08 CAROTID NEGPreoperative cardiovascular examinationClaudication, intermittent - In-person encounter Office Visit Yaw Thacker MD [facility] - In-person encounter Office Visit Yaw Thacker MD [facility] Dizziness - In-person encounter Office Visit Yaw Thacker MD [facility] - In-person encounter Office Visit Yaw Thacker MD [facility] - In-person encounter Office Visit Yaw Thacker MD [facility] - In-person encounter Office Visit Yaw Thacker MD [facility] - In-person encounter Office Visit Yaw Thacker MD [facility] Hyperlipidemia - In-person encounter Office Visit Yaw Thacker MD [facility] - In-person encounter Office Visit Yaw Thacker MD [facility] Leg numbness - In-person encounter Office Visit Yaw Thacker MD [facility] - In-person encounter Office Visit Yaw Thacker MD [facility] - In-person encounter Office Visit Yaw Thacker MD [facility] SHORTNESS OF BREATH - In-person encounter Office Visit Yaw Thacker MD [facility] - In-person encounter Office Visit Yaw Thacker MD [facility] - In-person encounter Office Visit Yaw Thacker MD [facility] - In-person encounter Office Visit Yaw Thacker MD [facility] - In-person encounter Office Visit Yaw Thacker MD [facility] CAD-5/12 STENT XIENCE 1 DIAG--6/ VISION STENT RCA - In-person encounter Office Visit Yaw Thacker MD [facility] - In-person encounter Office Visit Yaw Thacker MD [facility] CAD-5/12 STENT XIENCE 1 DIAG--6/11 VISION STENT RCA - In-person encounter Office Visit Yaw Thacker MD [facility] - In-person encounter Office Visit Yaw Thacker MD [facility] CAD-5/12 STENT XIENCE 1 DIAG--6/11 VISION STENT RCA - In-person encounter Office Visit Yaw Thacker MD [facility] CAD-5/12 STENT XIENCE 1 DIAG--6/ VISION STENT RCA - In-person encounter Office Visit Yaw Thacker MD [facility] VITAL SIGNS Date Observation Value Provider Body Mass Index (Ratio) 25.11 kg/m2 Johny Thacker MD blood pressure, diastolic 88 mm[Hg] Ca therine Raul blood pressure, systolic 129 mm[Hg] Cat herine [place] blood pressure, cuff size regular Ca therine Raul oxygen saturation, oximetry 92 % Leslie [place] respiratory rate E&M 14 /min Catheri ne Raul pulse rate 72 /min Leslie [place] weight E&M 175 [lb_av] Leslie [place] height E&M 70 [in_i] Leslie Raul Body [...] Danielle G paolaenenfjuvencio pulse rate 52 /min Dainelle Jhonathan lder weight E&M 186 [lb_av] Danielle Royceuenenfvanna lder height E&M 70 [in_i] Danielle Orlandonemelyssa lder Body Mass Index (Ratio) 26.97 kg/m2 Johny Thacker MD blood pressure, cuff size large Ke rri Michael blood pressure, diastolic 60 mm[Hg] Ke rri Locer blood pressure, systolic 122 mm[Hg] Salvador Rodrigeuz oxygen saturation, oximetry 93 % Danielle Rodriguez respiratory rate E&M 18 /min Danielle Hwang paolavladislavjuvencio pulse rate 78 /min Danielle Ring [facility] weight E&M 188 [lb_av] Danielle Ring [facility] height E&M 70 [in_i] Danielle Ring [facility] Body Mass Index (Ratio) 27.55 kg/m2 Johny [...] l Body Mass Index (Ratio) 27.69 kg/m2 Johny Thacker MD pulse rate 94 /min Malgorzata [...] Maced[place] enson blood pressure, diastolic 76 mm[Hg] In deloris Bryson blood pressure, systolic 135 mm[Hg] [...] [place] blood pressure, systolic 122 mm[Hg] [facility] sabine [place] pulse rate #2 74 [facility] blood pressure, dey tolic, second observation 71 mm[Hg] [facility] blood pressure, syst olic, second observation 108 mm[Hg] [facility] oxygen saturation, oximetry 97 % [facility] pulse rate 77 /min [facility] blood pressure, diastolic 71 mm[Hg] Vi ctoria [facility] blood pressure, systolic 133 mm[Hg] Fadi richard [facility] pulse rate #2 69 [facility] blood pressure, dey tolic, second observation 66 mm[Hg] [facility] blood pressure, syst olic, second observation 108 mm[Hg] [facility] oxygen saturation, oximetry 97 % [facility] pulse rate 77 /min [facility] blood pressure, diastolic 81 mm[Hg] Vi ctoria Tebid blood pressure, systolic 117 mm[Hg] Fadi richard Tebid pulse rate #2 69 [place] bid blood pressure, dey tolic, second observation 93 mm[Hg] Radha Tebid blood pressure, syst olic, second observation 152 mm[Hg] Radha Tebid oxygen saturation, oximetry 97 % [place] bid pulse rate 75 /min [place] d blood pressure, diastolic 97 mm[Hg] Vi ctoria Tebid blood pressure, systolic 168 mm[Hg] Fadi richard Tebid pulse rate #2 57 [place] d blood pressure, dey tolic, second observation 70 mm[Hg] [facility], second observation 133 mm[Hg] [place] Tebid oxygen saturation, oximetry 97 % [place] d pulse rate 55 /min [place] Tebid blood pressure, diastolic 87 mm[Hg] Vi ctoria Tebid blood pressure, systolic 126 mm[Hg] Fadi richard Tebid pulse rate #2 73 [place] d blood pressure, dey tolic, second observation 73 mm[Hg] [facility], syst [facility], second observation 118 mm[Hg] [place] Tebid oxygen saturation, oximetry 97 % [place] Ted pulse rate 56 /min [place] Tebid blood pressure, diastolic 68 mm[Hg] Vi ctoria Tebid blood pressure, systolic 133 mm[Hg] Fadi richard Tebid pulse rate #2 72 [facility], dey tolic, second observation 71 mm[Hg] [place] Tebid blood pressure, syst olic, second observation 124 mm[Hg] [place] Tebid oxygen saturation, oximetry 97 % [place] Tebid pulse rate 78 /min Radha Tebid blood pressure, diastolic 95 mm[Hg] Vi ctoria Tebid blood pressure, systolic 153 mm[Hg] Fadi richard Tebid pulse rate #2 75 Radha Tebid blood pressure, dey tolic, second observation 66 mm[Hg] Radha Tebid blood pressure, syst olic, second observation 130 mm[Hg] Radha Tebid oxygen saturation, oximetry 97 % Radha Tebid pulse rate 75 /min [place] Tebid blood pressure, diastolic 79 mm[Hg] Vi ctoria Tebid blood pressure, systolic 143 mm[Hg] Fadi richard Tebid pulse rate #2 87 [place] Tebid blood pressure, dey tolic, second observation 92 mm[Hg] Radha Tebid blood pressure, syst olic, second observation 109 mm[Hg] Radha Tebid oxygen saturation, oximetry 97 % Radha Tebid pulse rate 88 /min [place] Tebid blood pressure, diastolic 62 mm[Hg] Vi ctoria Tebid blood pressure, systolic 119 mm[Hg] Fadi richard Tebid pulse rate #2 71 [place] Tebid blood pressure, dey tolic, second observation 79 mm[Hg] Radha Tebid blood pressure, syst olic, second observation 128 mm[Hg] Radha Tebid oxygen saturation, oximetry 97 % [place] Tebid pulse rate 77 /min [place] Tebid blood pressure, diastolic 100 mm[Hg] Vi ctoria Tebid blood pressure, systolic 134 mm[Hg] Fadi richard Tebid pulse rate #2 77 [place] Tebid blood pressure, dey tolic, second observation [...] Fadi richard Tebid pulse rate #2 78 [place] Tebid blood pressure, dey tolic, second observation 76 mm[Hg] Radha Tebid blood pressure, syst olic, second observation 126 mm[Hg] Radha Tebid oxygen saturation, oximetry 97 % Radha Tebid pulse rate 68 /min [place] Tebid blood pressure, diastolic 82 mm[Hg] Vi [...] Fadi richard Tebid pulse rate #2 68 [place] Tebid blood pressure, dey tolic, second observation 76 mm[Hg] Radha d blood pressure, syst olic, second observation 128 mm[Hg] Radha d oxygen saturation, oximetry 97 % Radha d pulse rate 71 /min Radha d blood pressure, diastolic 79 mm[Hg] Vi ctoria Tebid blood pressure, systolic 132 mm[Hg] Fadi richard Tebid pulse rate #2 69 [place] blood pressure, dey tolic, second observation 59 mm[Hg] Radha blood pressure, syst olic, second observation 112 mm[Hg] Radha d oxygen saturation, oximetry 97 % Radha pulse rate 75 /min Radha blood pressure, diastolic 66 mm[Hg] [facility] Ted blood pressure, systolic 124 mm[Hg] Fadi richard Ted pulse rate #2 61 [place] blood pressure, dey tolic, second observation 65 mm[Hg] Radha d blood pressure, syst olic, second observation 124 mm[Hg] Radha d oxygen saturation, oximetry 97 % Radha pulse rate 66 /min Radha blood pressure, diastolic 72 mm[Hg] Vi ctoria Tebid blood pressure, systolic 133 mm[Hg] Fadi richard Tebid pulse rate #2 79 [place] d blood pressure, dey tolic, second observation 77 mm[Hg] Radha d blood pressure, syst olic, second observation 124 mm[Hg] Radha d oxygen saturation, oximetry 97 % Radha d pulse rate 72 /min [place] d blood pressure, diastolic 74 mm[Hg] Vi ctoria Tebid blood pressure, systolic 141 mm[Hg] Fadi richard Tebid pulse rate #2 71 Radha Tebid blood pressure, dey tolic, second observation 66 mm[Hg] Radha Tebid blood pressure, syst olic, second observation 107 mm[Hg] Radha Tebid oxygen saturation, oximetry 97 % Radha Tebid pulse rate 70 /min [place] Tebid blood pressure, diastolic 78 mm[Hg] Vi ctoria Tebid blood pressure, systolic 137 mm[Hg] Fadi richard Tebid pulse rate #2 75 [facility], dey tolic, second observation 86 mm[Hg] Radha Tebid blood pressure, syst olic, second observation 138 mm[Hg] [facility], oximetry 97 % [facility] pulse [facility] 79 /min [facility], diastolic 76 mm[Hg] Vi ctoria Tebid blood pressure, systolic 130 mm[Hg] [facility] Tebid pulse rate #2 71 [place] Tebid blood pressure, dey tolic, second observation 71 mm[Hg] Radha Tebid blood pressure, syst olic, second observation 101 mm[Hg] Radha Tebid oxygen saturation, oximetry 97 % [facility] pulse rate 68 /min [place] Tebid blood pressure, diastolic 76 mm[Hg] Vi ctoria Tebid blood pressure, systolic 139 mm[Hg] Fadi richard Tebid pulse rate #2 94 [facility] blood [facility], dey tolic, second observation 57 mm[Hg] [place] Tebid blood pressure, syst olic, second observation 114 mm[Hg] [place] Tebid oxygen saturation, oximetry 97 % [facility] 96 /min [facility] blood [facility], diastolic 72 mm[Hg] Vi ctoria Tebid blood pressure, systolic 116 mm[Hg] Fadi richard Tebid pulse rate #2 76 [facility], dey tolic, second observation 84 mm[Hg] Radha bid blood pressure, syst olic, second observation 122 mm[Hg] [facility], oximetry 98 % [facility] pulse rate 71 /min [facility] blood [facility], diastolic 79 mm[Hg] Vi ctoria Tebid blood pressure, systolic 134 mm[Hg] Fadi richard Tebid pulse rate #2 70 [facility] blood [facility], dey tolic, second observation 71 mm[Hg] [facility] blood [facility], syst olic, second observation 119 mm[Hg] [facility], oximetry 98 % [facility] pulse rate 77 /min [facility] blood [facility], diastolic 78 mm[Hg] [facility] Tebid blood pressure, systolic 125 mm[Hg] Fadi richard Tebid pulse rate #2 77 [place] bid blood pressure, dey tolic, second observation 70 mm[Hg] [facility] blood [facility], syst olic, second observation 125 mm[Hg] [facility], oximetry 98 % [facility] pulse rate 80 /min [facility] blood pressure, diastolic 72 mm[Hg] Vi ctoria Tebid blood pressure, systolic 135 mm[Hg] Fadi richard Tebid pulse rate #2 64 [facility] blood pressure, dey tolic, second observation 75 mm[Hg] [facility] blood pressure, syst olic, second observation 114 mm[Hg] [facility] oxygen saturation, oximetry 98 % [facility] pulse rate 60 /min Radha Tebid blood [...] Edilberto Martinez RN pulse rate #2 77 [place] Tebid blood pressure, dey tolic, second observation [...] ctoria Tebid blood pressure, systolic 131 mm[Hg] Fadi richard Tebid pulse rate #2 71 [place] Tebid blood pressure, dey tolic, second observation [...] % Radha Tebid pulse rate 78 /min [place] Tebid blood pressure, diastolic 79 mm[Hg] Vi ctoria Tebid blood pressure, systolic 110 mm[Hg] Fadi richard Tebid pulse rate #2 77 [place] Tebid blood pressure, dey tolic, second observation 66 mm[Hg] Radha Tebid blood pressure, syst olic, second observation 103 mm[Hg] Radha Tebid oxygen saturation, oximetry 98 % [place] Tebid pulse rate 70 /min [place] Tebid blood pressure, diastolic 78 mm[Hg] Vi ctoria Tebid blood pressure, systolic 123 mm[Hg] Fadi richard Tebid pulse rate #2 71 Radha Tebid blood pressure, dey tolic, second observation 77 mm[Hg] Radha Tebid blood pressure, syst olic, second observation 143 mm[Hg] Radha Tebid oxygen saturation, oximetry 98 % Radha Tebid pulse rate 76 /min [place] Tebid blood pressure, diastolic 82 mm[Hg] Vi ctoria Tebid blood pressure, systolic 152 mm[Hg] Fadi richard Tebid pulse rate #2 67 [place] Tebid blood pressure, dey tolic, second observation 62 mm[Hg] Radha blood pressure, syst olic, second observation 100 mm[Hg] Radha oxygen saturation, oximetry 98 % Radha pulse rate 75 /min Radha blood pressure, diastolic 82 mm[Hg] Vi ctoria Tebid blood pressure, systolic 156 mm[Hg] Fadi richard Ted pulse rate #2 80 [place] blood pressure, dey tolic, second observation 75 mm[Hg] Radha blood pressure, syst olic, second observation 118 mm[Hg] Radha oxygen saturation, oximetry 98 % Radha pulse rate 85 /min Radha blood pressure, diastolic 79 mm[Hg] Vi ksoria Ted blood pressure, systolic 168 mm[Hg] Fadi richard Ted pulse rate #2 78 [place] blood pressure, dey tolic, second observation 68 mm[Hg] Radha blood pressure, syst olic, second observation 107 mm[Hg] Radha oxygen saturation, oximetry 98 % Radha pulse rate 76 /min Radha blood pressure, diastolic 71 mm[Hg] Vi ctoria Ted blood pressure, systolic 116 mm[Hg] Fadi richard Ted pulse rate #2 76 [place] blood pressure, dey tolic, second observation 66 mm[Hg] Radha d blood pressure, syst olic, second observation 111 mm[Hg] Radha d oxygen saturation, oximetry 98 % Radha pulse rate 77 /min [place] blood pressure, diastolic 76 mm[Hg] Vi ctoria [...] 0-149 High cholesterol, serum 149 mg/dL [facility] [id number]/04/ 08 calcium, serum 9.1 mg/dL [facility] 8.6-10.2 carbon dioxide, venous blood 26 mmol/L [facility] 20-29 chloride, serum 103 mmol/L [facility] 96-106 potassium, serum 4.0 mmol/L [facility] 3.5-5.2 sodium, serum 143 mmol/L [facility] [phone]/04/ 08 urea nitrogen/creatinine ratio, serum 16 [facility] [...] Not Estab. platelet count 206 X10E3/UL [facility] [phone]/04/ 08 red blood cell distribution width 12.5 [...] cell distribution width, [facility], percentage of total cells, blood 0.2 % [facility] nucleated red blood cells as percent of blood leukocytes 0.4 % [facility] - red blood cell (erythrocyte) count, per high power field 0.0 10*3/UL [facility] - eosinophils as percent of blood leukocytes 3.0 % [facility] neutrophils as percent of blood leukocytes [...] - 3.9 mean platelet volume 10.0 (?) [facility] - platelet count 245.0 THOUSAND/ UL [...] 10*3/mm3 Gage Gonsalez hematocrit, blood 43.7 % [facility] international normalized ratio (INR) 1.0 [facility] alanine aminotransferase (SGPT), serum 32 1/L [facility] aspartate aminotransferase (SGOT), serum 20 1/L [facility] creatinine, serum 1.09 mg/dL [facility] potassium, serum 4.4 mmol/L [facility] sodium, serum 141 mmol/L [facility] LDL cholesterol, serum 83 mg/dL [facility] cholesterol, serum 165 mg/dL [facility] prothrombin time (patient) 10.6 s [facility] international normalized ratio (INR) 1.0 [facility] creatinine, serum 1.24 mg/dL [facility] urea nitrogen, blood 20 mg/dL [facility] carbon dioxide, serum, total 26 mmol/L [facility] chloride, serum 104 mmol/L [facility] potassium, serum 4.5 mmol/L [facility] sodium, serum 140 mmol/L [facility] platelet count 251 10*3/uL [facility] hematocrit, blood 42.8 % [facility] hemoglobin, blood 14.1 g/dL [facility] erythrocyte (RBC) count 4.50 10*6/mm3 [facility] leukocyte count, blood 7.2 10*3/mm3 [facility] anion gap, serum 10.3 [facility] estimated glomerular filtration rate 58 mL/min [facility] blood glucose, fasting 99 mg/dL [facility] calcium, serum 9.0 mg/dL [facility] creatinine, serum 1.28 mg/dL [facility] urea nitrogen, blood 26.5 mg/dL [facility] carbon dioxide, serum, total 27 mmol/L [facility] chloride, serum 104 mmol/L [facility] potassium, serum 4.3 mmol/L [facility] sodium, serum 137 mmol/L [facility] platelet count 239 10*3/uL [facility] red blood cell distribution width 13.4 % [facility] mean corpuscular hemoglobin concentration, RBC 33.4 g/dL [facility] mean corpuscular hemoglobin, RBC 32.3 pg [facility] mean corpuscular volume, RBC 96.8 fL [facility] hematocrit, blood 42.5 % [facility] hemoglobin, blood 14.2 g/dL [facility] erythrocyte (RBC) count 4.39 10*6/mm3 [facility] monocytes as percent of blood leukocytes 8.7 % [facility] lymphocytes as percent of blood leukocytes 23.0 % [facility] leukocyte count, blood 7.1 10*3/mm3 [facility] international normalized ratio (INR) 1.4 [facility] prothrombin time (patient) 13.8 s [facility] very low density lipoproteins 33 mg/dL [facility] triglyceride, serum, fasting 163 mg/dL [facility] HDL cholesterol, serum 39 mg/dL [facility] LDL cholesterol, serum 131 mg/dL [facility] cholesterol, serum 203 mg/dL [facility] thyroid stimulating hormone, serum 1.720 u[IU]/mL [facility] albumin/globulin ratio, serum 1.5 [facility] protein, total, serum 7.2 g/dL [facility] albumin, serum 4.3 g/dL [facility] bilirubin, serum, total 0.3 mg/dL [facility] alkaline phosphatase, serum 88 1/L [facility] alanine aminotransferase (SGPT), serum 18 1/L [facility] aspartate aminotransferase (SGOT), serum 16 1/L [facility] calcium, serum 9.6 mg/dL [facility] blood glucose, fasting 82 mg/dL [facility] creatinine, serum 1.25 mg/dL [facility] urea nitrogen, blood 19 mg/dL [facility] carbon dioxide, serum, total 23 mmol/L [facility] chloride, serum 103 mmol/L [facility] potassium, serum 4.1 mmol/L [facility] sodium, serum 141 mmol/L [facility] platelet count 255 10*3/uL [facility] red blood cell distribution width 14.3 % [facility] mean corpuscular hemoglobin concentration, RBC 33.7 g/dL [facility] mean corpuscular hemoglobin, RBC 31.6 pg [facility] mean corpuscular volume, RBC 94 fL [facility] hematocrit, blood 41.9 % [facility] hemoglobin, blood 14.1 g/dL [facility] erythrocyte (RBC) count 4.46 10*6/mm3 [facility] monocyte count, blood 0.6 10*3/mm3 [facility] lymphocyte count, blood 1.8 10*3/mm3 [facility] monocytes as percent of blood leukocytes 8 % [facility] lymphocytes as percent of blood leukocytes 23 % [facility] leukocyte count, blood 7.5 10*3/mm3 [facility] prostate specific antigen 3.63 ng/mL [facility] HISTORY OF MEDICATION USE Medication Status Instructions [...] by mouth daily - Edilberto Martinez RN BUDEPRION SR 150 MG ORAL [...] e drinks per day 3 /d Leslie [place] passive cigarette sm hardik exposure yes Leslie Raul smoking, year quit 1998 Leslie [place] number of years as a smoker 10 years or m ore Leslie Raul smoking history, tot al pack/year 50 Leslie [place] cigarette use yes Leslie Raul smoking status [...] 3 /d Malgorzata Ramin passive cigarette sm ahrdik exposure yes Malgorzata [facility] smoking, year quit 1998 [facility] number of years as a smoker 10 years or m [facility] Malgorzata Faustin smoking history, tot al pack/year 50 Malgorzata Block cigarette use yes [facility] smoking status Former smoker Malgorzata nguyễn smoking, [...] use, average drinks per day none Nate Maecdoenson alcohol use, type Beer, very seldom Areli [...] required Yaw Thacker MD alcohol use no aDnielle Cranepraveen lder smoking status Former smoker Danielle [...] h [place] smoking history, tot al pack/year [id number] Griffin Vishalacoarya smoking, year quit 1998 Griffin horn social history reviewed E&M reviewed [facility] hardik exposure yes Griffin Vishalaco smoking history, tot al pack/year 1 pack per day for 54 years Griffin Shirleyaco smoking, year quit 2001 Griffin horn smoking [...] Date Observation Value Provider energy level yes [place] Tebid energy level yes [place] Tebid energy level yes [place] energy level yes [place] energy level yes [place] energy level yes [place] energy level yes [place] energy level yes [place] energy level yes [place] energy level yes [place] energy level yes [place] energy level yes [place] energy level yes [place] energy level yes [place] energy level yes [place] energy level yes [place] energy level yes [place] energy level yes [place] energy level yes [place] energy level yes [place] energy level yes [place] [employer] energy [...] Payer name Policy type / Coverage type [place] red democrat [employer] [facility] MEDICARE ADVANTAGE (PPO) Other [id number] ADVANCE DIRECTIVES Name Date DISCUSSED - NO DECISION MADE TREATMENT PLAN Date Name Performer [id number],S, R epeat CTA scan in August. To discuss with PCP. Khushi Orlando NP [id number],S, N o dizziness. Continues on plavix. Khushi Orlando NP [id number],S, U nchanged. Khushi Orlando NP [id number],S, H is updated medication list for this problem includes: Atorvastatin 20 Mg Tablet (Atorvastatin) ..... Take 1 tablet by mouth every night Khushi Orlando NP [id number],S, N o chest pain. Khushi Orlando NP [id number],S, Yaw Thacker MD [id number],W,H e does not wish to do a PFT or ct so will refer him to the lung doctor Dr KELLOGG pulmonary consult. Yaw Thacker MD [id number],S, Yaw Thacker MD Cardiology: R epeat CTA [...] 2014 Yaw Thacker MD Cardiology follow up Ywa jerry MD Cardiology follow up :will obtain [...] Thacker MD Cardiology:Recently in the hospital at [facility] with shortness of breath. Will obtain his [...] carotid artery occlusion. Will do carotid duplex. Khusih Orlando NP Cardiology:Will repeat echo Yrn Orlando NP Cardiology:SOB continues. Khushi Orlando NP Cardiology:Will check echo at 6 month visit Yaw Thacker MD Cardiology:Stress te st is unchanged from 2015 so do not think this is progression of lumbee CAD. Yaw Thacker MD Cardiology Follow up [...] severe Diffusion Defect Will refer patient to communications engineering technician. Yaw Thacker MD fu:PFT (01/10/2015) P ulmonary [...] 57%. Will schedule L/R cardiac cath at [facility] Yaw Thacker MD fu:Will do stress adenosine [...] (Atorvastatin calcium) ..... At Imdur 30 Mg [id number] (Isosorbide mononitrate) ..... One tablet daily Propranolol [...] calcium) ..... At hs Imdur 30 Mg [id number] (Isosorbide mononitrate) ..... One tablet daily Aspirin 81 Mg Tabs (Aspirin) ..... 1 tablet by mouth daily Orders: Vanna LAM ([id number]) Yaw Thacker MD : T he following medications were removed from the medication list: Propranolol Hcl 20 Mg Tabs (Propranolol hcl) ..... 1 tablet by mouth twice daily His updated medication list for this problem includes: Plavix 75 Mg Tabs (Clopidogrel bisulfate) ..... 1 tab by mouth daily Atorvastatin Calcium 20 Mg Tabs (Atorvastatin calcium) ..... At hs Imdur 30 Mg [id number] (Isosorbide mononitrate) ..... One tablet daily Aspirin [...] calcium) ..... At hs Imdur 30 Mg [id number] (Isosorbide mononitrate) ..... One tablet daily Propranolol [...] calcium) ..... At hs Imdur 30 Mg [id number] (Isosorbide mononitrate) ..... 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 At Orders: C omplete Echo ([id number]) Yaw Thacker MD Follow-up, c/o chest pain and sh ortness of breath Yaw Thacker MD Follow-up, c/o chest pain and shortness of breath: H is updated medication list for this problem includes: Plavix 75 Mg Tabs (Clopidogrel bisulfate) ..... 1 tab by mouth daily Orders: E KG ([id number]) Yaw Thacker MD Follow-up, c/o chest pain [...] and thus i will do this at [facility] which has that facility Yaw Thacker [...] EF 78% which is within normal limits. [facility] (10/14/2010) C ardiac Cath: Normal left ventricular function. Normal left ventricular end diastolic pressure. 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 EF 60%. [facility] (11/05/2010) C ardiac Cath Comments: Successful stenting of the proximal RCA with a 3.5 x 15 Vision stent. [facility] (11/05/2010) C HOL: 203 (09/23/2010) LDL: 131 [...] MR. Mild TR. EF 64%. RVSP 23mmg. [facility] (10/14/2010) Yaw Thacker MD routine Yaw Thacker [...] EF 78% which is within normal limits. [facility] (10/14/2010) C ardiac Cath: Normal left ventricular function. Normal left ventricular end diastolic pressure. 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 EF 60%. [facility] (11/05/2010) C ardiac Cath Comments: Successful stenting of the proximal RCA with a 3.5 x 15 Vision stent. [facility] (11/05/2010) h e will need another stress test but will do an adenosine myoview Yaw Thacker MD follow up:check the free testosterone and vit d levels. O rders: V ITAMIN D, 25-HYDROXY, LC/MS/MS (34620) O ther ([id number]) Yaw Thacker MD follow up: H is [...] RBC, INDIC ES, WBC, PLT) DLCO - 26232 FRC - 72155 FVC - 39249 STR - Adenosine Complete Echo Full PFT [...] completed EKG Yaw Thacker MD completed SNOMED-CT: 14469078 Physical Exam, Performed: Pulse Exam of Foot Yaw Thacker MD completed EKG Yaw Thacker MD completed SNOMED-CT: [id number] 458767 Current Medications Documented Yaw Thacker MD completed SNOMED-CT: 93678857 Physical Exam, Performed: Pulse Exam of Foot Yaw Thacker MD completed SNOMED-CT: 267423388 810058 Current Medications Documented Yaw Thacker MD completed SNOMED-CT: 88297373 Physical Exam, Performed: Pulse Exam of Foot Yaw Thacker MD completed SNOMED-CT: 487622804 927335 Current Medications Documented Yaw Thacker MD completed SNOMED-CT: 41869525 Physical Exam, Performed: Pulse Exam of Foot Yaw Thacker MD completed SNOMED-CT: 389600051 870516 Current Medications Documented Yaw Thacker MD completed Stress EKG Jeremiah Serrano MD completed Regadenoson, 4 units Michael stoner MD completed Cardiolite, 2 units Michael izquierdo MD completed SPECT Images Michael Knowles MD completed SNOMED-CT: 01468729 Physical Exam, Performed: Pulse Exam of Foot Yaw Thacker MD completed EKG Yaw Thacker MD completed SNOMED-CT: 267109203 330335 Current Medications Documented Yaw Thacker MD completed SNOMED-CT: 97499041 Physical Exam, Performed: Pulse Exam of Foot Yaw Thacker MD completed SNOMED-CT: 920541787 771465 Current Medications Documented Yaw Thacker MD completed SNOMED-CT: 18950282 Physical Exam, Performed: Pulse Exam of Foot Yaw Thacker MD completed SNOMED-CT: 437264568 710512 Current Medications Documented Yaw Thacker MD completed BLOOD COUNT HEMOGLOBIN Yaw Thacker MD completed FVC - 62058 Yaw Thacker MD complete d FRC - 40691 Yaw Thacker MD complete d DLCO - 98804 Yaw Thacker MD complet ed EKG Yaw Thacker MD completed DLCO - 38107 Chinmay Bell completed SVC - 15685 Chinmay Bell completed FVC - 34028 Chinmay Bell completed EKG Yaw Thacker MD completed EKG Yaw Thacker MD completed EKG Yaw Thacker MD completed EKG Yaw Thacker MD completed EKG Yaw Thacker MD completed
--- OUTSIDE RECORDS SUMMARY | 2024-06-06 00:24 | XMS_ITS | Clinical Summary ---
Author Organization [facility] Address [address] [place] [address]. [place], [place] [address] [place] [id number] Care Team Providers Care Security Management Specialist Name Role Phone Unavailable Primary Care Provider [...]
[2024-06-09 03:33] LABS: Adenovirus DNA Not Detected (Not Detected); Chlamydophila pneumoniae Not Detected (Not Detected); Coronavirus 229E Not Detected (Not Detected); Coronavirus HKU1 Not Detected (Not Detected); Coronavirus NL63 Not Detected (Not Detected); Coronavirus OC43 Not Detected (Not Detected); Human Metapneumovirus Not Detected (Not Detected); Human Parainfluenza Virus 1 Not Detected (Not Detected); Human Parainfluenza Virus 2 Not Detected (Not Detected); Human Parainfluenza Virus 3 Not Detected (Not Detected); Human Parainfluenza Virus 4 Not Detected (Not Detected); Human RSV B Not Detected (Not Detected); Influenza A Detected (Not Detected); Influenza B Not Detected (Not Detected); Mycoplasma pneumoniae Not Detected (Not Detected); Rhinovirus/Enterovirus Not Detected (Not Detected)
--- NOTE | 2024-06-11 12:59 | PC.NURSE ---
Aspergillus tests are all negative. Resp pathogens- Influenza A is the only positive. Mycoplasma is elevated at 1275.
== END 2024-06-04 16:00 | disposition home or self-care (01) | DRG 194 ==
LOC: ANHED 05-30 02:49 → ANH3MEDSUR 05-30 04:31
PROVIDERS: Physician Assistant; Admitting Provider Internal Medicine; Emergency Provider Physician Assistant; PCP Internal Medicine; Visit Provider Internal Medicine
DX: J15.7 Pneumonia due to Mycoplasma pneumoniae (principal); J44.0 Chronic obstructive pulmonary disease with (acute) lower respiratory infection; K57.30 Diverticulosis of large intestine without perforation or abscess without bleeding; G47.30 Sleep apnea, unspecified; R53.81 Other malaise; Z20.822 Contact with and (suspected) exposure to COVID-19; Z79.82 Long term (current) use of aspirin; Z87.891 Personal history of nicotine dependence
CPT/HCPCS: 36415; 71275; 74177; 80053; 81001; 82306; 82525; 82607; 82746; 82948; 83690; 83735; 83880; 84100; 84425; 84446; 84484; 85025; 85610; 85730; 86606; 86738; 87070; 87086; 87205; 87633; 87637; 87641; 92611; 93005; 93306; 94618; 94640; 94762; 96365; 96372; 96375; 96376; 97161; 97165; 99285; A9270; G0378; J0456; J0692; J0696; J1650; J2919; J7512; Q9967

== ENCOUNTER 2024-06-20 07:33 | Emergency (ER) | payer MEDICARE, SELFPAY ==
--- NOTE | ~2024-06-20 | CT_ITS ---
EXAMINATION: CT abdomen pelvis w con DATE: 06/20/2024 08:44 INDICATION: Constipation TECHNIQUE: Computed tomography (CT) of the abdomen and pelvis was performed with 100 mL Omnipaque-350 intravenous contrast. Automated exposure control and iterative reconstruction technique were employe d. The dose-length product was 348.16 mGy-cm. COMPARISON: 05/29/2024 FINDINGS: Similar pattern of chronic peripheral predominant groundglass and coarse reticular opacities in the b ilateral lower lung zones consistent with chronic interstitial lung disease in a nonspecific intersti tial pneumonia (NSIP) pattern. Calcified pleural plaques along the periphery of the lingula which cou ld relate to prior exudative effusion or asbestosis exposure. Heart size is normal. Atherosclerotic c oronary artery calcifications and possible stenting of the left anterior descending coronary artery.. Prominent aortic valve calcification. No pericardial effusion. Small sliding-type hiatal hernia. Cholecystectomy clips the gallbladder fossa with dropped clip along the posterior margin of the nighat l liver. Splenic calcifications consistent with old granulomatous disease. Pancreas, bilateral adrena l glands and right kidney are normal. There are few low-attenuation cysts in the left kidney the larg est measuring 1 cm. For millimeter nonobstructing stone in the left renal pelvis where there is also mild enhancing urothelial thickening which could be related to inflammation related to the stone or p otentially ascending urinary tract infection. Bladder is partially decompressed. Prostatomegaly. There is moderate sigmoid and descending colon predominant diverticulosis without adjacent inflammato ry change to suggest diverticulitis. There is small amount of fluid at the cecum with moderate to lar ge amount of stool in the more distal colon consistent with given history of constipation. Small vicki l and appendix are normal. Small fat-containing left inguinal hernia. Penile prosthesis with the rese rvoir in the right inguinal region. There is calcified atherosclerosis of the aorta and many of the other arteries with potentially minim ally significant stenosis at the origin of the celiac axis and superior mesenteric artery and along t he right common and proximal superficial femoral arteries. Fusiform aneurysm of the left common femor al artery measuring up to 2.1 cm in diameter. No free intraperitoneal gas or fluid. No pathologically enlarged abdominal or pelvic lymphadenopathy. Chronic L1 compression fracture with 20% anterior vert ebral body height loss. Moderate to severe lower lumbar spondylosis. IMPRESSION: 1. Moderate to large amount of colonic stool consistent with given history of constipation. 2. Chronic calcified pleural plaques at the lingula with chronic interstitial lung disease at the bethany g bases. 3. Small sliding-type hiatal hernia. 4. 4 mm nonobstructing left renal stone with enhancing urothelial thickening at the left renal pelvis . Correlate with urinalysis to exclude ascending urinary tract infection. 5. Prostatomegaly. 6. Extensive scattered atherosclerotic disease with potentially minimally significant stenosis at the celiac, superior mesenteric and right common and superficial femoral arteries. 2. 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 Reviewed, dictated and finalized at location A. CAD IMPRESSION: 1. Moderate to large amount of colonic stool consistent with given history of c onstipation. 2. Chronic calcified pleural plaques at the lingula with chronic interstitial l nicki disease at the lung bases. 3. Small sliding-type hiatal hernia. 4. 4 mm nonobstructing left renal stone with enhancing urothelial thickening at the left renal pelvis. Correlate with urinalysis to exclude ascending urinary tract infection. 5. Prostatomegaly. 6. Extensive scattered atherosclerotic disease with potentially minimally signi ficant stenosis at the celiac, superior mesenteric and right common and superfi cial femoral arteries. 2. 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
[2024-06-20 07:46] VITALS: BP 136/68; PULSE 78; RESP 18; TEMP 36.2; O2SAT 98
[2024-06-20 08:10] LABS: Basophils Percent Auto 0.8 % (0.2-1.2); Eosinophils Absolute Auto 0.1 K/mm3 (0-0.3); Eosinophils Percent Auto 1.3 % (0-4.4); Hematocrit 43.8 % (42.0-52.0); Hemoglobin 14.1 g/dL (14.0-18.0); Immature Granulocyte Absolute 0.02 K/mm3 (0.00-0.031); Immature Granulocyte Percent A 0.5 % (0-0.5); Lymphocytes Absolute Auto 1.04 K/mm3 (0.9-3.2); Lymphocytes Percent Auto 26.7 % (18.3-44.2); Mean Corpuscular HGB Conc 32.2 g/dl (32-36); Mean Corpuscular Hemoglobin 33.9 pg (26-34); Mean Corpuscular Volume 105.3 fl (80-100); Mean Platelet Volume 9.4 fl (7.4-10.4); Monocytes Absolute Auto 0.5 K/mm3 (0.1-0.6); Monocytes Percent Auto 13.9 % (2.6-8.5); Neutrophils Absolute Auto 2.2 K/mm3 (1.3-6.7); Neutrophils Percent Auto 56.8 % (45.5-73.1); Platelet Count Result 201 k/mm3 (150-375); Red Blood Count 4.16 M/mm3 (4.6-6.20); White Blood Count 3.9 K/mm3 (4.5-10.0)
--- NOTE | 2024-06-20 08:14 | ED_ITS ---
HPI - General Adult General Chief complaint: Recheck/Abnormal Lab/Rx Stated complaint: CONSTIPATION X1WK Time Seen by Provider: 06/20/24 07:41 History of Present Illness HPI narrative: 88 year-old male with history of COPD presenting to the emergency department for evaluation for decreased p.o. intake and suspected constipation. Patient states he has been drinking fluids but has not been eating a lot of solids. Patient is unable to explain why he does not want to eat but states he does does not have much of an appetite. Patient initially denied any abdominal pain but states he does have some lower abdominal discomfort. Patient denies any urinary symptoms and patient denies any rectal pain or sensation that he needs to have a bowel movement. Related Data Home Medications ?Medication ?Instructions ?Recorded ?Confirmed ?Last Taken ?Type atorvastatin 20 mg tablet 20 mg PO DAILY 10/16/21 06/20/24 06/19/24 History budesonide-formoterol HFA 160 2 puff inhalation BID 10/16/21 05/30/24 05/29/24 History mcg-4.5 mcg/actuation aerosol inhaler (Symbicort) bupropion HCl 150 mg tablet,12 hr 150 mg PO BID 10/16/21 06/20/24 06/19/24 History sustained-release doxazosin 4 mg tablet 4 mg PO DAILY 10/16/21 06/20/24 06/19/24 History isosorbide mononitrate 30 mg 30 mg PO DAILY 10/16/21 06/20/24 06/19/24 History tablet,extended release 24 hr Aspir-81 81 mg PO DAILY 05/09/23 06/20/24 06/19/24 History albuterol sulfate 90 mcg/actuation 2 puff inhalation PRN PRN Wheezing 05/09/23 06/20/24 06/19/24 History aerosol inhaler brimonidine 0.2 %-timolol 0.5 % 1 drp RIGHT EYE .COMPLEX 05/09/23 06/20/24 06/19/24 History eye drops (Combigan) latanoprost 0.005 % eye drops 1 drp RIGHT EYE HS 05/09/23 06/20/24 06/19/24 History omeprazole 40 mg capsule,delayed 40 mg PO DAILY 05/25/24 06/20/24 06/19/24 History release gabapentin 600 mg tablet 600 mg PO HS 05/30/24 06/20/24 06/19/24 History Allergies Allergy/AdvReac Type Severity Reaction Status Date / Time No Known Allergies Allergy Mild Verified 06/20/24 07:34 Review of Systems 2 Review of Systems: All systems reviewed & are unremarkable except as noted in HPI and below PMFSH Past Medical History Medical History (Updated 06/20/24 @ 11:35 by Darrian Longo MD) PAD (peripheral artery disease) Glaucoma Hard of hearing Legally blind Diverticular hemorrhage Acute blood loss anemia Colon, diverticulosis Rectal bleeding Sleep apnea Emphysema/COPD Surgical History Surgical History (Updated 05/30/24 @ 12:32 by Moshe Winters MD) History of cholecystectomy History of cervical spinal surgery H/O carotid endarterectomy Family History Family History Other Adopted Social History Social History (Updated 05/30/24 @ 12:33 by Moshe Winters MD) Social History: Quit smoking about 50 years ago after smoking pack a day for about 25 years. No alcohol or drug use. Lives alone. Surrogate decision maker -Nina (friend) Code status -full Smoking status: Former smoker Tobacco type: cigarettes Alcohol intake: never Substance use: never Substance use type: does not use Do You Feel Safe in your Home?: Yes Lack of Transportation: No Lack of Food: Never True Current Housing: I Have Housing Concerned About Future Housing: No Difficulty Paying Gas/Electric Bills: No Difficulty Paying for Meds: No Currently Unemployed: No Education: Trade/Vocational Certificate Difficulty w/ Childcare or Family Care: No Living arrangements: alone Occupation/Education: retired Gender identity (if verbalized by the patient): Male Spiritual care concerns: No Exam 2 Narrative: APPEARANCE: Well appearing, no pain, no distress, well-nourished. HEAD: normocephalic, atraumatic. EYES: PERRLA/EOMI, conjunctivae clear. NOSE: Normal no drainage EARS:TMS clear with good light reflex. THROAT: Pharynx clear, no exudate. NECK: Supple. No adenopathy, no masses. RESPIRATORY: Airway patent, respirations nonlabored. Clear to auscultation bilaterally, no rales, rhonchi, wheezing. CARDIOVASCULAR: Regular rate and rhythm without murmurs rubs or gallops. ABDOMINAL: Suprapubic tenderness to palpation, soft nontender normal bowel sounds MUSCULOSKELETAL: Moves all extremities. Strength/ROM intact, No edema, No calf tenderness. NEURO: Alert. Cranial nerves II through XII intact. Good gait. Good coordination SKIN: Warm, dry. Normal Color Course Vital Signs Vital signs: Vital Signs Temperature 97.1 F L 06/20/24 07:46 Pulse Rate 78 06/20/24 07:46 Respiratory Rate 18 06/20/24 07:46 Blood Pressure 136/68 06/20/24 07:46 Pulse Oximetry 98 06/20/24 07:46 Temperature 97.1 F L 06/20/24 07:46 Pulse Rate 60 06/20/24 11:09 Respiratory Rate 14 06/20/24 11:09 Blood Pressure 144/81 H 06/20/24 11:09 Pulse Oximetry 95 06/20/24 11:09 Medical Decision Making MDM Narrative Medical decision making narrative: 80-year-old male presenting to emergency department for evaluation for issues with constipation. Patient was afebrile with no leukocytosis and hemoglobin of 14.1. Patient had an INR of 1.0, patient had no acute abnormalities on his CMP UA was concerning for infection with trace leukocyte esterase and high white blood cells. Patient does admit that he does not drink enough water and that this is a chronic issue. This may be the underlying issue for his constipation and both his urinary tract infection. Patient was treated with IV Rocephin in the emergency department. Patient was treated with a soapsuds enema and did pass a large amount of stool. On re-evaluation patient states he feels significantly improved and patient prefers to be discharged home. Differential Diagnosis Differential Diagnosis: COVID, RSV, influenza, UTI, colitis, diverticulitis Vital Signs Vital Signs: Vital Signs Temperature 97.1 F L 06/20/24 07:46 Pulse Rate 78 06/20/24 07:46 Respiratory Rate 18 06/20/24 07:46 Blood Pressure 136/68 06/20/24 07:46 Pulse Oximetry 98 06/20/24 07:46 Temperature 97.1 F L 06/20/24 07:46 Pulse Rate 60 06/20/24 11:09 Respiratory Rate 14 06/20/24 11:09 Blood Pressure 144/81 H 06/20/24 11:09 Pulse Oximetry 95 06/20/24 11:09 Lab Data Lab results reviewed: Yes I reviewed the patient's lab results. 06/20/24 08:04 06/20/24 08:33 Labs: Lab Results 06/20/24 06/20/24 06/20/24 Range/Units 08:04 08:33 10:25 WBC 3.9 L (4.5-10.0) K/mm3 RBC 4.16 L (4.6-6.20) M/mm3 Hgb 14.1 (14.0-18.0) g/dL Hct 43.8 (42.0-52.0) % MCV 105.3 H (80-100) fl MCH 33.9 (26-34) pg MCHC 32.2 (32-36) g/dl RDW 13.0 (11.5-14.5) % Plt Count 201 (150-375) k/mm3 MPV 9.4 (7.4-10.4) fl Immature Gran % (Auto) 0.5 (0-0.5) % Neut % (Auto) 56.8 (45.5-73.1) % Lymph % (Auto) 26.7 (18.3-44.2) % [place] % (Auto) 13.9 H (2.6-8.5) % Eos % (Auto) 1.3 (0-4.4) % Baso % (Auto) 0.8 (0.2-1.2) % Lymph # (Auto) 1.04 (0.9-3.2) K/mm3 [place] # (Auto) 0.5 (0.1-0.6) K/mm3 Eos # (Auto) 0.1 (0-0.3) K/mm3 Baso # (Auto) 0.0 (0.0-0.1) K/mm3 Abs Immat Gran (auto) 0.02 (0.00-0.031) K/mm3 Absolute Neuts (auto) 2.2 (1.3-6.7) K/mm3 Absolute Nucleated RBC 0.000 (0.0-0.012) K/mm3 Nucleated RBC % 0.0 (0.0-0.2) % Platelet Estimate Adequate (Adequate) Hypochromasia 1+ Macrocytosis 1+ (NORMAL) Schistocytes None seen PT 13.8 (11.1-14.7) Seconds INR 1.0 APTT 34.0 (22.3-36.8) Seconds Sodium 138 (137-145) mmol/L Potassium 4.0 (3.4-5.0) mmol/L Chloride 102 (98-107) mmol/L Carbon Dioxide 25 (22-30) mmol/L Anion Gap 11 (4-12) mmol/L BUN 18 D (9-20) mg/dL Creatinine 1.03 1.20 (0.7-1.3) mg/dL Estim Creat Clear Calc Not Reportable Not Reportable Estimated GFR > 60 57 L (59 - ) Glucose 76 (65-110) mg/dL Lactic Acid 1.0 (0.7-2.0) mmol/L Calcium 8.8 (8.4-10.2) mg/dL Total Bilirubin 1.2 (0.2-1.3) mg/dL AST 22 (17-59) U/L ALT 18 (6-50) U/L Alkaline Phosphatase 140 H (38-126) U/L Total Protein 7.0 (6.3-8.2) g/dL Albumin 4.1 (3.5-5.1) g/dL Urine Color Yellow (Yellow) Urine Appearance Clear (Clear) Urine pH 5.5 (5.0-9.0) Ur Specific [place] > 1.045 H (1.001-1.035) Urine Protein Negative (Negative) mg/dL Urine Glucose (UA) Negative (Negative) mg/dL Urine Ketones 3+ H (Negative) mg/dL Ur Blood (Man) Negative (Negative) Urine Nitrate Negative (Negative) Urine Bilirubin Negative (Negative) Urine Urobilinogen 1.0 (<2.0) mg/dL Leukocyte Esterase Rfl Trace H (Negative) ROWAN/UL Urine RBC 0-2 (0-2) /hpf Urine WBC 21-50 H (0-3) /hpf Ur Squamous Epith Cells None seen (Few) /hpf Urine Bacteria None seen /hpf Urine Casts 0-2 Imaging Data Radiologist's impression: Impressions Abdomen/Pelvis CT 06/20/24 08:45 IMPRESSION: 1. Moderate to large amount of colonic stool consistent with given history of constipation. 2. Chronic calcified pleural plaques at the lingula with chronic interstitial lung disease at the lung bases. 3. Small sliding-type hiatal hernia. 4. 4 mm nonobstructing left renal stone with enhancing urothelial thickening at the left renal pelvis. Correlate with urinalysis to exclude ascending urinary tract infection. 5. Prostatomegaly. 6. Extensive scattered atherosclerotic disease with potentially minimally significant stenosis at the celiac, superior mesenteric and right common and superficial femoral arteries. 2. 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 Discharge Plan Discharge Clinical Impression: Acute constipation, Urinary tract infection Patient Disposition: Home, Self-Care Condition: Stable Instructions: Antibiotic Form, Constipation (DC), Urinary Tract Infection in Men (ED) Additional Instructions: Antibiotic as directed until completed. You need to increase your water intake. I do recommend taking MiraLax to help soften your stools. If you have any worsening symptoms please call or return to the emergency department. Patient Language: Romansh Prescriptions: New cephalexin 500 mg capsule 500 mg PO Q8H 7 Days Qty: 21 0RF No Action bupropion HCl 150 mg tablet sustained-release 12 hr 150 mg PO BID atorvastatin 20 mg tablet 20 mg PO DAILY isosorbide mononitrate 30 mg tablet extended release 24 hr 30 mg PO DAILY doxazosin 4 mg tablet 4 mg PO DAILY budesonide-formoterol [Symbicort] 160-4.5 mcg/actuation HFA aerosol inhaler 2 puff inhalation BID Aspir-81 81 mg PO DAILY latanoprost 0.005 % drops 1 drp RIGHT EYE HS albuterol sulfate 90 mcg/actuation HFA aerosol inhaler 2 puff INHALATION PRN PRN (Reason: Wheezing) brimonidine-timolol [Combigan] 0.2-0.5 % drops 1 drp RIGHT EYE .COMPLEX Rx Instructions: 1 drop into right eye at 0900 and 1200; omeprazole 40 mg capsule,delayed release(DR/EC) 40 mg PO DAILY gabapentin 600 mg tablet 600 mg PO HS azithromycin [Zithromax] 250 mg Tablet 250 mg PO DAILY Qty: 4 0RF guaifenesin [Mucus Relief ER] 600 mg Tablet Extended Release 12hr 1,200 mg PO Q12HR 7 Days Qty: 28 0RF Incruse Ellipta 62.5 mcg/actuation Blister With Device 1 inh inhalation DAILYRT Qty: 30 0RF loratadine 10 mg Tablet 10 mg PO QAM Qty: 30 0RF fluticasone propionate 50 mcg/actuation [place],Suspension 2 spray intranasal HS Qty: 16 0RF levofloxacin 750 mg tablet 750 mg PO Q48H Qty: 2 0RF Rx Instructions: take tonight (06/04/24) and in the evening of 06/06/24 Follow-up/Referrals: Randy,Irwin Black MD [Primary Care Provider] -
[2024-06-20 08:23] LABS: Alanine Aminotransferase 18 U/L (6-50); Albumin Level 4.1 g/dL (3.5-5.1); Alkaline Phosphatase 140 U/L (38-126); Anion Gap 11 mmol/L (4-12); Aspartate Amino Transferase 22 U/L (17-59); Bilirubin,Total 1.2 mg/dL (0.2-1.3); Blood Urea Nitrogen 18 mg/dL (9-20); Calcium 8.8 mg/dL (8.4-10.2); Carbon Dioxide 25 mmol/L (22-30); Chloride 102 mmol/L (98-107); Estimated Glomerular Filt Rate > 60; Glucose 76 mg/dL (65-110); Sodium 138 mmol/L (137-145)
[2024-06-20 08:24] LABS: Prothrombin Time 13.8 Seconds (11.1-14.7)
--- NOTE | 2024-06-20 08:29 | PC.NURSE ---
Pt to CT via stretcher at this time.
[2024-06-20 08:32] LABS: Macrocytosis 1+ (NORMAL); Platelet Estimate Adequate (Adequate); Schistocytes None Seen
[2024-06-20 08:33] LABS: Hypochromasia 1+
[2024-06-20 08:35] LABS: Estimated Glomerular Filt Rate 57
[2024-06-20 09:32] VITALS: BP 130/72; PULSE 70; RESP 15; O2SAT 93
[2024-06-20 10:39] LABS: Add Urine Microscopic? YES; Appearance Urine Clear (Clear); Bacteria Urine None Seen /hpf; Bilirubin Urine Negative (Negative); Blood Urine Negative (Negative); Color Urine Yellow (Yellow); Glucose Urine UA Negative (Negative); Ketones Urine 3+ mg/dL (Negative); Leukocyte Esterase Ur Trace LEU/UL (Negative); Nitrate Urine Negative (Negative); Non Pathogenic Casts 0-2; Protein Urine Negative (Negative); RBC Urine 0-2 /hpf (0-2); Specific Grav Ur > 1.045 (1.001-1.035); Squamous Epithelial Cell Urine None Seen /hpf (Few); WBC Urine 21-50 /hpf (0-3); pH Urine 5.5 (5.0-9.0)
[2024-06-20 11:09] VITALS: BP 144/81; PULSE 60; RESP 14; O2SAT 95
--- OUTSIDE RECORDS SUMMARY | 2024-06-21 21:16 | XMS_ITS | Referral Summary ---
Author Organization [facility] Address [address] [place] [id number] Care Team Providers Care Beauty Operator Apprentice Name Role Phone Angelo Mccloud MD Primary Care Provider [phone] Allergies No known active allergies Medications budesonide-formo [...] (12/16/2020): Added automatically from request for surgery [id number] CAD (coronary artery disease) 09/22/2020 Overview (09/22/2020): Added automatically from request for surgery [id number] SOB (shortness of breath) 09/22/2020 Overview (09/22/2020): Added automatically from request for surgery [id number] Social History Tobacco Use Types Packs/Day Years [...] on file 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 Gender Identity Not on file [...] on file Medical Devices Implanted Type Area Senior Web Applications Developer Device Identifier Shelf Expiration Date Model / Serial / Lot [employer] X [id number] Resolute Cale 3.5mm 2.1-2.7fr 26mm 140cm Rapid Exchange - [id number] Implanted:Qty: 1 on 09/29/2020 by Yaw Thacker MD at [facility] [employer] [id number] X / / Explanted Type Area Senior Web Applications Developer Device Identifier Shelf Expiration Date Model / Serial / Lot [employer] [id number] Inlay [place] 7fr 28cm Pusher Fluoro Marker Atraumatic Insertion Latex Free - [id number] Implanted:Qty: 1 on 01/01/2021 by Martin Alvarado MD at [facility] Explanted:Qty: 1 on 01/16/2021 Left: Ure[employer] 06/26/2025 [id number] / / [id number] Insurance MEDICARE SOLUTIONS Member Subscriber Plan / Payer (Ef fective 2020-Present) Name:Rogerio Vivar Relation to Subscriber:Self Name:Rogerio Vivar Payer ID:[id number] (NAIC) Type:[facility] MEDICARE Address: [place] [id number] [place] [id number] MEDICARE SOLUTIONS Member Subscriber Plan / Payer (Ef fective 2020-Present) Name:Rogerio Vivar Relation to Subscriber:Self Name:Rogerio Vivar Payer ID:[id number] (NAIC) Type:[facility] MEDICARE Address: [place] [id number] [place] [phone] MEDICARE SOLUTIONS Advance Directives For more information, please contact: [phone] * Full Code (Latest Code Status on File) Date Activated Date Inactivated Comments 09/29/2020 10:32 AM 10/01/2020 6:10 PM Care Teams Beauty Operator Apprentice Relationship Specialty Start Date End Date Angelo Mccloud MD [address] [place] [address] PCP - General 10/01/20
--- OUTSIDE RECORDS SUMMARY | 2024-06-21 21:16 | XMS_ITS | Clinical Summary ---
Author Organization [facility] Address [address] [place] [address]. [place], [place] [address] [place] [id number] Care Team Providers Care Sales Representative Printing Supplies Name Role Phone Unavailable Primary Care Provider [...]
--- OUTSIDE RECORDS SUMMARY | 2024-06-21 21:16 | XMS_ITS | Clinical Summary ---
Author Organization [facility] Address [address] [place] [phone] Care Team Providers Care Gas Turbine Powerplant Mechanic Helper Name Role Phone Angelo Mccloud MD Primary Care Provider [phone] Allergies No known active allergies Medications budesonide-formo [...] (12/16/2020): Added automatically from request for surgery [id number] CAD (coronary artery disease) 09/22/2020 Overview (09/22/2020): Added automatically from request for surgery [id number] SOB (shortness of breath) 09/22/2020 Overview (09/22/2020): Added automatically from request for surgery [id number] Surgical History Surgery Date Site/Laterality Comments CARDIAC [...] on file 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 Gender Identity Not on file Sexual Orientation [...] 03/25/2014, 2012 Medical Devices Implanted Type Area Gyroscopic Engineering Technician Device Identifier Shelf Expiration Date Model / Serial / Lot [employer] X [id number] Resolute Cale 3.5mm 2.1-2.7fr 26mm 140cm Rapid Exchange - [id number] Implanted:Qty: 1 on 09/29/2020 by Yaw Thacker MD at [facility] [employer] [id number] X / / Explanted Type Area Gyroscopic Engineering Technician Device Identifier Shelf Expiration Date Model / Serial / Lot [employer] [id number] Inlay [place] 7fr 28cm Pusher Fluoro Marker Atraumatic Insertion Latex Free - [id number] Implanted:Qty: 1 on 01/01/2021 by Martin Alvarado MD at [facility] Explanted:Qty: 1 on 01/16/2021 Left: [employer]re[employer] 06/26/2025 [id number] / / [id number] Insurance MEDICARE SOLUTIONS [facility] MED[facility] Address: [address] [address] [facility] Address: [address] [address] [place] [address] MEDICARE SOLUTIONS [facility] Address: [address] [address] [place] [address] Advance Directives For more information, please contact: [phone] * Full Code (Latest Code Status on File) Date Activated Date Inactivated Comments 09/29/2020 10:32 AM 10/01/2020 6:10 PM Care Teams Gas Turbine Powerplant Mechanic Helper Relationship Specialty Start Date End Date Angelo Mccloud MD [address] [facility] [address] [place] [address] PCP - General 10/01/20
--- OUTSIDE RECORDS SUMMARY | 2024-06-21 21:36 | XMS_ITS | CONTINUITY OF CARE DOCUMENT ---
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 ENCOUNTERS Date Type Provider Location Encounter Diag nosis - In-person encounter Office Visit Yaw Thacker MD [facility] Lung nodulesCoronavirus infection, 05/2021 - In-person encounter Office Visit Yaw Thacker MD [facility] - In-person encounter Office Visit Yaw Thacker MD [facility] - In-person encounter Office Visit Yaw Thacker MD [facility] - In-person encounter Office Visit Yaw Thacker MD [facility] - In-person encounter Office Visit Yaw Thacker MD [facility] Carotid artery disease s/p L CEA - In-person encounter Office Visit Yaw Thacker MD [facility] CAD-09/08 CAROTID NEGPreoperative cardiovascular examinationClaudication, intermittent - In-person encounter Office Visit Yaw Thacker MD [facility] - In-person encounter Office Visit Yaw Thacker MD [facility] Dizziness - In-person encounter Office Visit Yaw Thacker MD [facility] - In-person encounter Office Visit Yaw Thacker MD [facility] - In-person encounter Office Visit Yaw Thacker MD [facility] - In-person encounter Office Visit Yaw Thacker MD [facility] - In-person encounter Office Visit Yaw Thacker MD [facility] Hyperlipidemia - In-person encounter Office Visit Yaw Thacker MD [facility] - In-person encounter Office Visit Yaw Thacker MD [facility] Leg numbness - In-person encounter Office Visit Yaw Thacker MD [facility] - In-person encounter Office Visit Yaw Thacker MD [facility] - In-person encounter Office Visit Yaw Thacker MD [facility] SHORTNESS OF BREATH - In-person encounter Office Visit Yaw Thacker MD [facility] - In-person encounter Office Visit Yaw Thacker MD [facility] - In-person encounter Office Visit Yaw Thacker MD [facility] - In-person encounter Office Visit Yaw Thacker MD [facility] - In-person encounter Office Visit Yaw Thacker MD [facility] CAD-5/12 STENT XIENCE 1 DIAG--6/ VISION STENT RCA - In-person encounter Office Visit Yaw Thacker MD [facility] - In-person encounter Office Visit Yaw Thacker MD [facility] CAD-5/12 STENT XIENCE 1 DIAG--6/11 VISION STENT RCA - In-person encounter Office Visit Yaw Thacker MD [facility] - In-person encounter Office Visit Yaw Thacker MD [facility] CAD-5/12 STENT XIENCE 1 DIAG--6/11 VISION STENT RCA - In-person encounter Office Visit Yaw Thcaker MD [facility] CAD-5/12 STENT XIENCE 1 DIAG--6/ VISION STENT RCA - In-person encounter Office Visit Yaw Thacker MD [facility] VITAL SIGNS Date Observation Value Provider Body Mass Index (Ratio) 25.11 kg/m2 Johny Thacker MD blood pressure, diastolic 88 mm[Hg] Ca therine [place] blood pressure, systolic 129 mm[Hg] Cat herine Raul blood pressure, cuff size regular Ca therine [place] oxygen saturation, oximetry 92 % Leslie [place] respiratory rate E&M 14 /min Catheri ne Raul pulse rate 72 /min [place] weight E&M 175 [lb_av] [place] height E&M 70 [in_i] [place] Body Mass Index (Ratio) 26.25 kg/m2 Johny [...] paolavladislavjuvencio pulse rate 78 /min Danielle Ring [facility] weight E&M 188 [lb_av] Danielle Ring [facility] height E&M 70 [in_i] Danielle Ring [facility] Body Mass Index (Ratio) 27.55 kg/m2 Johny [...] blood pressure, cuff size regular [facility], diastolic 77 mm[Hg] Ke [facility]ri [facility] blood pressure, systolic 142 mm[Hg] Salvador ri [facility] oxygen saturation, oximetry 98 % Danielle [...] Salvador Rodriguez pulse rate 79 /min Danielle Rnig er oxygen saturation, oximetry 95 % Danielle [...] [place] enson blood pressure, diastolic 76 mm[Hg] Ri deloris Bryson blood pressure, systolic 135 mm[Hg] [...] systolic 122 mm[Hg] [facility] sabine [place] pulse rate #2 74 [facility] blood pressure, dey tolic, second observation 71 mm[Hg] [facility] blood pressure, syst olic, second observation 108 mm[Hg] [facility] oxygen saturation, oximetry 97 % [facility] pulse rate 77 /min [facility] blood pressure, diastolic 71 mm[Hg] Vi ctoria [facility] blood pressure, systolic 133 mm[Hg] Fadi richard [facility] pulse rate #2 69 [facility] blood pressure, dey tolic, second observation 66 mm[Hg] [facility] blood pressure, syst olic, second observation 108 mm[Hg] [facility] oxygen saturation, oximetry 97 % [facility] pulse rate 77 /min [facility] blood pressure, diastolic 81 mm[Hg] Vi ctoria Tebid blood pressure, systolic 117 mm[Hg] Fadi richard Tebid pulse rate #2 69 [facility] bid blood pressure, dey tolic, second observation 93 mm[Hg] Radha Tebid blood pressure, syst olic, second observation 152 mm[Hg] Radha Tebid oxygen saturation, oximetry 97 % [facility] bid pulse rate 75 /min [facility] d blood pressure, diastolic 97 mm[Hg] Vi ctoria Tebid blood pressure, systolic 168 mm[Hg] Fadi richard Tebid pulse rate #2 57 [facility] d blood pressure, dey tolic, second observation 70 mm[Hg] [facility], second observation 133 mm[Hg] [facility] Tebid oxygen saturation, oximetry 97 % [facility] d pulse rate 55 /min [facility] Tebid blood pressure, diastolic 87 mm[Hg] Vi ctoria Tebid blood pressure, systolic 126 mm[Hg] Fadi richard Tebid pulse rate #2 73 [facility] d blood pressure, dey tolic, second observation 73 mm[Hg] [facility], syst [facility], second observation 118 mm[Hg] [facility] Tebid oxygen saturation, oximetry 97 % [facility] Ted pulse rate 56 /min [facility] Tebid blood pressure, diastolic 68 mm[Hg] Vi ctoria Tebid blood pressure, systolic 133 mm[Hg] Fadi richard Tebid pulse rate #2 72 [facility], dey tolic, second observation 71 mm[Hg] [facility] Tebid blood pressure, syst olic, second observation 124 mm[Hg] [facility] Tebid oxygen saturation, oximetry 97 % [facility] Tebid pulse rate 78 /min Radha Tebid blood pressure, diastolic 95 mm[Hg] Vi ctoria Tebid blood pressure, systolic 153 mm[Hg] Fadi richard Tebid pulse rate #2 75 Radha Tebid blood pressure, dey tolic, second observation 66 mm[Hg] Radha Tebid blood pressure, syst olic, second observation 130 mm[Hg] Radha Tebid oxygen saturation, oximetry 97 % Radha Tebid pulse rate 75 /min [facility] Tebid blood pressure, diastolic 79 mm[Hg] Vi ctoria Tebid blood pressure, systolic 143 mm[Hg] Fadi richard Tebid pulse rate #2 87 [facility] Tebid blood pressure, dey tolic, second observation 92 mm[Hg] Radha Tebid blood pressure, syst olic, second observation 109 mm[Hg] Radha Tebid oxygen saturation, oximetry 97 % Radha Tebid pulse rate 88 /min [facility] Tebid blood pressure, diastolic 62 mm[Hg] Vi ctoria Tebid blood pressure, systolic 119 mm[Hg] Fadi richard Tebid pulse rate #2 71 [facility] Tebid blood pressure, dey tolic, second observation 79 mm[Hg] Radha Tebid blood pressure, syst olic, second observation 128 mm[Hg] Radha Tebid oxygen saturation, oximetry 97 % [facility] Tebid pulse rate 77 /min [facility] Tebid blood pressure, diastolic 100 mm[Hg] Vi ctoria Tebid blood pressure, systolic 134 mm[Hg] Fadi richard Tebid pulse rate #2 77 [facility] Tebid blood pressure, dey tolic, second observation 72 mm[Hg] Radha Tebid blood pressure, syst olic, second observation 134 mm[Hg] Ardha Tebid oxygen saturation, oximetry 97 % Radha [...] Fadi richard Tebid pulse rate #2 78 [facility] Tebid blood pressure, dey tolic, second observation 76 mm[Hg] Radha Tebid blood pressure, syst olic, second observation 126 mm[Hg] Radha Tebid oxygen saturation, oximetry 97 % Radha Tebid pulse rate 68 /min [facility] Tebid blood pressure, diastolic 82 mm[Hg] Vi [...] Fadi richard Tebid pulse rate #2 68 [facility] Tebid blood pressure, dey tolic, second observation 76 mm[Hg] Radha d blood pressure, syst olic, second observation 128 mm[Hg] Radha d oxygen saturation, oximetry 97 % Radha d pulse rate 71 /min Radha d blood pressure, diastolic 79 mm[Hg] Vi ctoria Tebid blood pressure, systolic 132 mm[Hg] Fadi richard Tebid pulse rate #2 69 [facility] blood pressure, dey tolic, second observation 59 mm[Hg] Radha blood pressure, syst olic, second observation 112 mm[Hg] Radha d oxygen saturation, oximetry 97 % Radha pulse rate 75 /min Radha blood pressure, diastolic 66 mm[Hg] Vi [facility] Ted blood pressure, systolic 124 mm[Hg] Fadi richard Ted pulse rate #2 61 [facility] blood pressure, dey tolic, second observation 65 mm[Hg] Radha d blood pressure, syst olic, second observation 124 mm[Hg] Radha d oxygen saturation, oximetry 97 % Radha pulse rate 66 /min Radha blood pressure, diastolic 72 mm[Hg] Vi ctoria Tebid blood pressure, systolic 133 mm[Hg] Fadi richard Tebid pulse rate #2 79 [facility] d blood pressure, dey tolic, second observation 77 mm[Hg] Radha d blood pressure, syst olic, second observation 124 mm[Hg] Radha d oxygen saturation, oximetry 97 % Radha d pulse rate 72 /min Metz d blood pressure, diastolic 74 mm[Hg] Vi ctoria Tebid blood pressure, systolic 141 mm[Hg] Afdi richard Tebid pulse rate #2 71 Radha Tebid blood pressure, dey tolic, second observation 66 mm[Hg] Radha Tebid blood pressure, syst olic, second observation 107 mm[Hg] Radha Tebid oxygen saturation, oximetry 97 % Radha Tebid pulse rate 70 /min Metz Tebid blood pressure, diastolic 78 mm[Hg] Vi ctoria Tebid blood pressure, systolic 137 mm[Hg] Fadi richard Tebid pulse rate #2 75 [facility], dey tolic, second observation 86 mm[Hg] Radha Tebid blood pressure, syst olic, second observation 138 mm[Hg] [facility], oximetry 97 % [facility] pulse [facility] 79 /min [facility], diastolic 76 mm[Hg] Vi ctoria Tebid blood pressure, systolic 130 mm[Hg] [facility]2 71 [facility] Tebid blood pressure, dey tolic, second observation 71 mm[Hg] Radha Tebid blood pressure, syst olic, second observation 101 mm[Hg] Radha Tebid oxygen saturation, oximetry 97 % [facility] pulse [facility] 68 /min [facility] Tebid blood pressure, diastolic 76 mm[Hg] Vi ctoria Tebid blood pressure, systolic 139 mm[Hg] Fadi richard Tebid pulse rate #2 94 [facility], dey tolic, second observation 57 mm[Hg] Metz Tebid blood pressure, syst olic, second observation 114 mm[Hg] [facility] Tebid oxygen saturation, oximetry 97 % [facility] pulse [facility] 96 /min [facility], diastolic 72 mm[Hg] Vi ctoria Tebid blood pressure, systolic 116 mm[Hg] Fadi richard Tebid pulse rate #2 76 [facility], dey tolic, second observation 84 mm[Hg] Radha bid blood pressure, syst olic, second observation 122 mm[Hg] [facility], oximetry 98 % [facility] pulse [facility] 71 /min [facility], diastolic 79 mm[Hg] Vi ctoria Tebid blood pressure, systolic 134 mm[Hg] Fadi richard Tebid pulse rate #2 70 [facility] blood [facility], dey tolic, second observation 71 mm[Hg] [facility] blood pressure, syst olic, second observation 119 mm[Hg] [facility] saturation, oximetry 98 % [facility] pulse rate 77 /min [facility], diastolic 78 mm[Hg] Vi [facility] Tebid blood pressure, systolic 125 mm[Hg] Fadi richard Tebid pulse rate #2 77 [facility] bid blood pressure, dey tolic, second observation 70 mm[Hg] [facility], syst olic, second observation 125 mm[Hg] [facility] saturation, oximetry 98 % [facility] pulse rate 80 /min [facility], diastolic 72 mm[Hg] Vi ctoria Tebid blood pressure, systolic 135 mm[Hg] Fadi richard Tebid pulse rate #2 64 [facility] blood pressure, dey tolic, second observation 75 mm[Hg] [facility] blood pressure, syst olic, second observation 114 mm[Hg] [facility] oxygen saturation, oximetry 98 % [facility] pulse rate 60 /min Radha [...] Edilberto Martinez RN pulse rate #2 77 [facility] Tebid blood pressure, dey tolic, second observation [...] Fadi richard Tebid pulse rate #2 71 [facility] Tebid blood pressure, dey tolic, second observation [...] % Radha Tebid pulse rate 78 /min [facility] Tebid blood pressure, diastolic 79 mm[Hg] Vi ctoria Tebid blood pressure, systolic 110 mm[Hg] Fadi richard Tebid pulse rate #2 77 [facility] Tebid blood pressure, dey tolic, second observation 66 mm[Hg] Radha Tebid blood pressure, syst olic, second observation 103 mm[Hg] Radha Tebid oxygen saturation, oximetry 98 % [facility] Tebid pulse rate 70 /min [facility] Tebid blood pressure, diastolic 78 mm[Hg] Vi ctoria Tebid blood pressure, systolic 123 mm[Hg] Fadi richard Tebid pulse rate #2 71 Radha Tebid blood pressure, dey tolic, second observation 77 mm[Hg] Radha Tebid blood pressure, syst olic, second observation 143 mm[Hg] Radha Tebid oxygen saturation, oximetry 98 % Radha Tebid pulse rate 76 /min [facility] Tebid blood pressure, diastolic 82 mm[Hg] Vi ctoria Tebid blood pressure, systolic 152 mm[Hg] Fadi richard Tebid pulse rate #2 67 [facility] Tebid blood pressure, dey tolic, second observation 62 mm[Hg] Radha blood pressure, syst olic, second observation 100 mm[Hg] Radha oxygen saturation, oximetry 98 % Radha pulse rate 75 /min Radha blood pressure, diastolic 82 mm[Hg] Vi ctoria Tebid blood pressure, systolic 156 mm[Hg] Fadi richard Ted pulse rate #2 80 [facility] blood pressure, dey tolic, second observation 75 mm[Hg] Radha blood pressure, syst olic, second observation 118 mm[Hg] Radha oxygen saturation, oximetry 98 % Radha pulse rate 85 /min Radha blood pressure, diastolic 79 mm[Hg] Vi mnoria Ted blood pressure, systolic 168 mm[Hg] Fadi richard Ted pulse rate #2 78 [facility] blood pressure, dey tolic, second observation 68 mm[Hg] Radha blood pressure, syst olic, second observation 107 mm[Hg] Radha oxygen saturation, oximetry 98 % Radha pulse rate 76 /min Radha blood pressure, diastolic 71 mm[Hg] Vi ctoria Ted blood pressure, systolic 116 mm[Hg] Fadi richard Ted pulse rate #2 76 [facility] blood pressure, dey tolic, second observation 66 mm[Hg] Radha d blood pressure, syst olic, second observation 111 mm[Hg] Radha d oxygen saturation, oximetry 98 % Radha pulse rate 77 /min [facility]z blood pressure, diastolic 76 mm[Hg] Vi ctoria [...] Martinez RN pulse rate 70 /min Edilberto Martniez RN oxygen saturation, oximetry 96 % Edilberto [...] 0-149 High cholesterol, serum 149 mg/dL [facility] [id number]/04/ 08 calcium, serum 9.1 mg/dL [facility] 8.6-10.2 carbon dioxide, venous blood 26 mmol/L [facility] 20-29 chloride, serum 103 mmol/L [facility] 96-106 potassium, serum 4.0 mmol/L [facility] 3.5-5.2 sodium, serum 143 mmol/L [facility] [phone]/04/ 08 urea nitrogen/creatinine ratio, serum 16 [facility] [...] Not Estab. platelet count 206 X10E3/UL [facility] [phone]/04/ 08 red blood cell distribution width 12.5 [...] cell distribution width, size density [facility].8 [facility]L [facility] granul[facility], percentage of total cells, blood 0.2 % [facility]ated red blood cells as percent of blood leukocytes 0.4 % [facility] - red blood cell (erythrocyte) count, per [...] - 3.9 mean platelet volume 10.0 (?) [facility] platelet count 245.0 THOUSAND/ UL [facility] [...] 10*3/mm3 Gage Gonsalez hematocrit, blood 43.7 % [facility] international normalized ratio (INR) 1.0 [facility] alanine aminotransferase (SGPT), serum 32 1/L [facility] aspartate aminotransferase (SGOT), serum 20 1/L [facility] creatinine, serum 1.09 mg/dL [facility] potassium, serum 4.4 mmol/L [facility] sodium, serum 141 mmol/L [facility] LDL cholesterol, serum 83 mg/dL [facility] cholesterol, serum 165 mg/dL [facility] prothrombin time (patient) 10.6 s [facility] international normalized ratio (INR) 1.0 [facility] creatinine, serum 1.24 mg/dL [facility] urea nitrogen, blood 20 mg/dL [facility] carbon dioxide, serum, total 26 mmol/L [facility] chloride, serum 104 mmol/L [facility] potassium, serum 4.5 mmol/L [facility] sodium, serum 140 mmol/L [facility] platelet count 251 10*3/uL [facility] hematocrit, blood 42.8 % [facility] hemoglobin, blood 14.1 g/dL [facility] erythrocyte (RBC) count 4.50 10*6/mm3 [facility] leukocyte count, blood 7.2 10*3/mm3 [facility] anion gap, serum 10.3 [facility] estimated glomerular filtration rate 58 mL/min [facility] blood glucose, fasting 99 mg/dL [facility] calcium, serum 9.0 mg/dL [facility] creatinine, serum 1.28 mg/dL [facility] urea nitrogen, blood 26.5 mg/dL [facility] carbon dioxide, serum, total 27 mmol/L [facility] chloride, serum 104 mmol/L [facility] potassium, serum 4.3 mmol/L [facility] sodium, serum 137 mmol/L [facility] platelet count 239 10*3/uL [facility] red blood cell distribution width 13.4 % [facility] mean corpuscular hemoglobin concentration, RBC 33.4 g/dL [facility] mean corpuscular hemoglobin, RBC 32.3 pg [facility] mean corpuscular volume, RBC 96.8 fL [facility] hematocrit, blood 42.5 % [facility] hemoglobin, blood 14.2 g/dL [facility] erythrocyte (RBC) count 4.39 10*6/mm3 [facility] monocytes as percent of blood leukocytes 8.7 % [facility] lymphocytes as percent of blood leukocytes 23.0 % [facility] leukocyte count, blood 7.1 10*3/mm3 [facility] international normalized ratio (INR) 1.4 [facility] prothrombin time (patient) 13.8 s [facility] very low density lipoproteins 33 mg/dL [facility] triglyceride, serum, fasting 163 mg/dL [facility] HDL cholesterol, serum 39 mg/dL [facility] LDL cholesterol, serum 131 mg/dL [facility] cholesterol, serum 203 mg/dL [facility] thyroid stimulating hormone, serum 1.720 u[IU]/mL [facility] albumin/globulin ratio, serum 1.5 [facility] protein, total, serum 7.2 g/dL [facility] albumin, serum 4.3 g/dL [facility] bilirubin, serum, total 0.3 mg/dL [facility] alkaline phosphatase, serum 88 1/L [facility] alanine aminotransferase (SGPT), serum 18 1/L [facility] aspartate aminotransferase (SGOT), serum 16 1/L [facility] calcium, serum 9.6 mg/dL [facility] blood glucose, fasting 82 mg/dL [facility] creatinine, serum 1.25 mg/dL [facility] urea nitrogen, blood 19 mg/dL [facility] carbon dioxide, serum, total 23 mmol/L [facility] chloride, serum 103 mmol/L [facility] potassium, serum 4.1 mmol/L [facility] sodium, serum 141 mmol/L [facility] platelet count 255 10*3/uL [facility] red blood cell distribution width 14.3 % [facility] mean corpuscular hemoglobin concentration, RBC 33.7 g/dL [facility] mean corpuscular hemoglobin, RBC 31.6 pg [facility] mean corpuscular volume, RBC 94 fL [facility] hematocrit, blood 41.9 % [facility] hemoglobin, blood 14.1 g/dL [facility] erythrocyte (RBC) count 4.46 10*6/mm3 [facility] monocyte count, blood 0.6 10*3/mm3 [facility] lymphocyte count, blood 1.8 10*3/mm3 [facility] monocytes as percent of blood leukocytes 8 % [facility] lymphocytes as percent of blood leukocytes 23 % [facility] leukocyte count, blood 7.5 10*3/mm3 [facility] prostate specific antigen 3.63 ng/mL [facility] HISTORY OF MEDICATION USE Medication Status [...] revi ewed - no changes required Khushi Olrando NP physical exercise, f requency, days per week yes Leslie [place] caffeine use, averag e drinks per day 3 /d Leslie Raul passive cigarette sm hardik exposure yes Leslie [place] smoking, year quit 1998 Leslie Raul number of years as a smoker 10 years or m ore Leslie Raul smoking history, tot al pack/year 50 Leslie Raul cigarette use yes Leslie Raul smoking status [...] yes Danielle henning smoking status Former smoker Dainelle Strong [place] drug use no Yaw Thacker [...] passive cigarette sm hardik exposure yes Malgorzata [facility] smoking, year quit 1998 [facility] number of years as a smoker 10 years or m [facility] Malgorzata Faustin smoking history, tot al pack/year 50 Malgorzata Block cigarette use yes [facility] smoking status Former smoker Malgorzata [...] /d Nate Thomas drug use no Nate Alvraado giovannikatherin passive cigarette sm hardik exposure yes [...] h [place] smoking history, tot al pack/year [address] [place] [facility] smoking, year quit 1998 [place] social history reviewed E&M reviewed Yaw Thacker MD [facility] use no [facility] sm hardik exposure yes [place] smoking history, tot al pack/year 1 pack per day for 54 years [place] smoking, year quit 2001 [place] smoking [...] Angina (inactive) Management Plan continue current therapy Ywa Thacker MD HRA, CV Assess/Plan, Angina (inactive) [...] Date Observation Value Provider energy level yes Metz Tebid energy level yes Metz Tebid energy level yes Metz Tebid energy level yes Metz Tebid energy level yes Metz Tebid energy level yes Metz Tebid energy level yes Metz Tebid energy level yes Metz Tebid energy level yes Metz Tebid energy level yes Metz Tebid energy level yes Metz Tebid energy level yes Metz Tebid energy level yes Metz Tebid energy level yes Metz Tebid energy level yes Metz Tebid energy level yes Metz Tebid energy level yes Metz Tebid energy level yes Metz Tebid energy level yes [facility]z Tebid energy level yes [facility] Tebid energy level yes Radha Tebid energy [...] Payer name Policy type / Coverage type [place] [employer] party ID [facility] MEDIC[facility]VANT[facility] (PPO) Other [id number] ADVANCE DIRECTIVES Name Date DISCUSSED - NO DECISION MADE TREATMENT PLAN Date Name Performer [id number],S, R epeat CTA scan in August. To discuss with PCP. Khushi [place] NP [id number],S, N o dizziness. Continues on plavix. Khushi [place] NP [id number],S, U nchanged. Khushi [place] NP [id number],S, H is updated medication list for this problem includes: Atorvastatin 20 Mg Tablet (Atorvastatin) ..... Take 1 tablet by mouth every night Khushi Orlando NP [id number],S, N o chest pain. Khushi Orlando NP [id number],S, Yaw Thacker MD [id number],W,H e does not wish to do a PFT or ct so will refer him to the lung doctor Dr KELLOGG pulmonary consult. Yaw Thacker MD [id number],S, Yaw Thacker MD Cardiology: R epeat CTA [...] Thacker MD Cardiology:Recently in the hospital at [facility] with shortness of breath. Will [...] Yaw jerry MD Cardiology Follow up Yaw ejrry MD Cardiology Follow up Yaw jerry MD [...] do not think this is progression of [place] CAD. Yaw Thacker MD Cardiology Follow up [...] severe Diffusion Defect Will refer patient to customer technical services manager. Yaw Thacker MD fu:PFT (01/10/2015) P ulmonary [...] 57%. Will schedule L/R cardiac cath at [facility] Yaw Thacker MD fu:Will do [...] (Atorvastatin calcium) ..... At Imdur 30 Mg [id number] (Isosorbide mononitrate) ..... One tablet daily Propranolol [...] calcium) ..... At hs Imdur 30 Mg [id number] (Isosorbide mononitrate) ..... One tablet daily Aspirin 81 Mg Tabs (Aspirin) ..... 1 tablet by mouth daily Orders: Vanna LAM (CPT-[id number]) Yaw Thacker MD : T he following medications were removed from the medication list: Propranolol Hcl 20 Mg Tabs (Propranolol hcl) ..... 1 tablet by mouth twice daily His updated medication list for this problem includes: Plavix 75 Mg Tabs (Clopidogrel bisulfate) ..... 1 tab by mouth daily Atorvastatin Calcium 20 Mg Tabs (Atorvastatin calcium) ..... At hs Imdur 30 Mg [id number] (Isosorbide mononitrate) ..... One tablet daily Aspirin [...] calcium) ..... At hs Imdur 30 Mg [id number]-cwr (Isosorbide mononitrate) ..... One tablet daily Propranolol [...] calcium) ..... At hs Imdur 30 Mg [id number] (Isosorbide mononitrate) ..... 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 At Orders: C omplete Echo (CPT-[id number]) Yaw Thacker MD Follow-up, c/o chest pain and sh ortness of breath Yaw Thacker MD Follow-up, c/o chest pain and shortness of breath: H is updated medication list for this problem includes: Plavix 75 Mg Tabs (Clopidogrel bisulfate) ..... 1 tab by mouth daily Orders: E KG (CPT-[id number]) Yaw Thacker MD Follow-up, c/o chest pain [...] and thus i will do this at [facility] which has that facility Yaw Thacker MD [...] EF 78% which is within normal limits. [facility] (10/14/2010) C ardiac Cath: Normal left ventricular function. Normal left ventricular end diastolic pressure. 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 EF 60%. 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 [facility] (11/05/2010) C HOL: 203 (09/23/2010) [...] MR. Mild TR. EF 64%. RVSP 23mmg. [facility] (10/14/2010) Yaw Thacker MD routine Yaw Thacker MD routine: H is updated medication list for this problem includes: Simvastatin 10 Mg Tabs (Simvastatin) ..... 1 tab by mouth daily BP today: 107/57 Prior BP: 106/65 (11/26/2010) C HOL: 203 (09/23/2010) LDL: 131 (09/23/2010) HDL: 39 (09/23/2010) T (09/23/2010) aYw Thacker MD routine: H is updated medication [...] EF 78% which is within normal limits. [facility] (10/14/2010) C ardiac Cath: Normal left ventricular function. Normal left ventricular end diastolic pressure. 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 EF 60%. 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 [facility] (11/05/2010) h e will need another stress test but will do an adenosine myoview Yaw Thakcer MD follow up:check the free testosterone and vit d levels. O rders: V ITAMIN D, 25-HYDROXY, LC/MS/MS ([id number]) O ther ([id number]) Yaw Thacker MD follow up: H is [...] RBC, INDIC ES, WBC, PLT) DLCO - 40279 FRC - 35154 FVC - 65319 STR - Adenosine Complete Echo Full PFT [...] completed EKG Yaw Thacker MD completed SNOMED-CT: 24350273 Physical Exam, Performed: Pulse Exam of Foot Yaw Thacker MD completed EKG Yaw Thacker MD completed SNOMED-CT: [id number] Current Medications Documented Yaw Thacker MD completed SNOMED-CT: 73723189 Physical Exam, Performed: Pulse Exam of Foot Yaw Thacker MD completed SNOMED-CT: 628477546 566465 Current Medications Documented Yaw Thacker MD completed SNOMED-CT: 90441440 Physical Exam, Performed: Pulse Exam of Foot Yaw Thacker MD completed SNOMED-CT: 050949182 057653 Current Medications Documented Yaw Thacker MD completed SNOMED-CT: 11511325 Physical Exam, Performed: Pulse Exam of Foot Yaw Thacker MD completed SNOMED-CT: 109513211 464632 Current Medications Documented Yaw Thacker MD completed Stress EKG Jeremiah Serrano MD completed Regadenoson, 4 units Michael stoner MD completed Cardiolite, 2 units Michael izquierdo MD completed SPECT Images Michael Knowles MD completed SNOMED-CT: 00449019 Physical Exam, Performed: Pulse Exam of Foot Yaw Thacker MD completed EKG Yaw Thacker MD completed SNOMED-CT: 876176079 803579 Current Medications Documented Yaw Thacker MD completed SNOMED-CT: 41766291 Physical Exam, Performed: Pulse Exam of Foot Yaw Thacker MD completed SNOMED-CT: 306858003 002090 Current Medications Documented Yaw Thacker MD completed SNOMED-CT: 21982126 Physical Exam, Performed: Pulse Exam of Foot Yaw Thacker MD completed SNOMED-CT: 583134000 850140 Current Medications Documented Yaw Thacker MD completed BLOOD COUNT HEMOGLOBIN Yaw Thacker MD completed FVC - 52307 Yaw Thacker MD complete d FRC - 12673 Yaw Thacker MD complete d DLCO - 70959 Yaw Thacker MD complet ed EKG Yaw Thacker MD completed DLCO - 23472 Chinmay Bell completed SVC - 66401 Chinmay Bell completed FVC - 30697 Chinmay Bell completed EKG Yaw Thacker MD completed EKG Yaw Thacker MD completed EKG Yaw Thacker MD completed EKG Yaw Thacker MD completed EKG Yaw Thacker MD completed
== END 2024-06-20 11:59 | disposition home or self-care (01) ==
PROVIDERS: Emergency Provider Emergency Medicine; PCP Internal Medicine
DX: N39.0 Urinary tract infection, site not specified (principal); K59.00 Constipation, unspecified; R10.30 Lower abdominal pain, unspecified; J43.9 Emphysema, unspecified; I73.9 Peripheral vascular disease, unspecified; G47.30 Sleep apnea, unspecified; H54.8 Legal blindness, as defined in USA; H40.9 Unspecified glaucoma; Z79.899 Other long term (current) drug therapy; Z87.891 Personal history of nicotine dependence; Z90.49 Acquired absence of other specified parts of digestive tract; Z79.82 Long term (current) use of aspirin; K44.9 Diaphragmatic hernia without obstruction or gangrene; N20.0 Calculus of kidney; N40.0 Benign prostatic hyperplasia without lower urinary tract symptoms; I70.90 Unspecified atherosclerosis; I72.4 Aneurysm of artery of lower extremity
CPT/HCPCS: 36415; 74177; 80053; 81001; 83605; 85025; 85610; 85730; 87086; 96365; 99284; J0696; Q9967

== ENCOUNTER 2024-06-28 08:24 | Emergency (ER) | payer MEDICARE, SELFPAY ==
--- NOTE | ~2024-06-28 | CT_ITS ---
EXAMINATION: CT abdomen pelvis w con DATE: 06/28/2024 10:52 INDICATION: Abdominal pain. Constipation. TECHNIQUE: Computed tomography (CT) of the abdomen and pelvis was performed with 100 mL Omnipaque 350 intravenous contrast. Automated exposure control and iterative reconstruction technique were employe d. The dose-length product was 399.86 mGy-cm. COMPARISON: CT abdomen and pelvis 06/20/2024 FINDINGS: The visualized portions of lung bases demonstrate chronic peripheral septal thickening. The re are calcified pleural plaques on the left. No pleural effusion. The heart size is normal. There ar e coronary artery calcifications. There are calcifications of the aortic valve. No pericardial effusi on. There is a small sliding hiatal hernia. The liver is normal. There are changes of cholecystectomy . Calcifications in the spleen are consistent with old granulomatous disease. The pancreas and adrena l glands are normal. There is cortical thinning of the kidneys. There are cysts in left kidney measur ing up to 11 mm. There is a 5 mm stone in left kidney. The prostate is moderately enlarged. There is a left inguinal hernia containing fat. A penile prosthesis is noted. There is diverticulosis of the c olon without evidence of diverticulitis. The appendix is normal. There is moderate stenosis of celiac axis and superior mesenteric artery and left renal artery. There is no significant stenosis of infer ior mesenteric artery. There is moderate stenosis of right superficial femoral artery. There are no p athologically enlarged lymph nodes. There is no free intraperitoneal fluid. There is moderate lumbar spondylosis. There is a chronic compression fracture of L1. IMPRESSION: 1. Small sliding hiatal hernia. 2. Left inguinal hernia containing fat. 3. Arterial occlusive disease. 4. Chronic interstitial lung disease. Reviewed, dictated and finalized at location A. UAL REALITY SPECIALIST
[2024-06-28 08:28] VITALS: BP 123/79; PULSE 60; RESP 16; TEMP 36.5; O2SAT 95
--- OUTSIDE RECORDS SUMMARY | 2024-06-28 08:36 | XMS_ITS | CONTINUITY OF CARE DOCUMENT ---
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 ENCOUNTERS Date Type Provider Location Encounter Diag nosis - In-person encounter Office Visit Yaw Thacker MD [facility] Lung nodulesCoronavirus infection, 05/2021 - In-person encounter Office Visit Yaw Thacker MD [facility] - In-person encounter Office Visit Yaw Thacker MD [facility] - In-person encounter Office Visit Yaw Thacker MD [facility] - In-person encounter Office Visit Yaw Thacker MD [facility] - In-person encounter Office Visit Yaw Thacker MD [facility] Carotid artery disease s/p L CEA - In-person encounter Office Visit Yaw Thacker MD [facility] CAD-09/08 CAROTID NEGPreoperative cardiovascular examinationClaudication, intermittent - In-person encounter Office Visit Yaw Thacker MD [facility] - In-person encounter Office Visit Yaw Thacker MD [facility] Dizziness - In-person encounter Office Visit Yaw Thacker MD [facility] - In-person encounter Office Visit Yaw Thacker MD [facility] - In-person encounter Office Visit Yaw Thacker MD [facility] - In-person encounter Office Visit Yaw Thacker MD [facility] - In-person encounter Office Visit Yaw Thacker MD [facility] Hyperlipidemia - In-person encounter Office Visit Yaw Thacker MD [facility] - In-person encounter Office Visit Yaw Thacker MD [facility] Leg numbness - In-person encounter Office Visit Yaw Thacker MD [facility] - In-person encounter Office Visit Yaw Thacker MD [facility] - In-person encounter Office Visit Yaw Thacker MD [facility] SHORTNESS OF BREATH - In-person encounter Office Visit Yaw Thacker MD [facility] - In-person encounter Office Visit Yaw Thacker MD [facility] - In-person encounter Office Visit Yaw Thacker MD [facility] - In-person encounter Office Visit Yaw Thacker MD [facility] - In-person encounter Office Visit Yaw Thacker MD [facility] CAD-5/12 STENT XIENCE 1 DIAG--6/ VISION STENT RCA - In-person encounter Office Visit Yaw Thacker MD [facility] - In-person encounter Office Visit Yaw Thacker MD [facility] CAD-5/12 STENT XIENCE 1 DIAG--6/11 VISION STENT RCA - In-person encounter Office Visit Yaw Thacker MD [facility] - In-person encounter Office Visit Yaw Thcaker MD [facility] CAD-5/12 STENT XIENCE 1 DIAG--6/11 VISION STENT RCA - In-person encounter Office Visit Yaw Thacker MD [facility] CAD-5/12 STENT XIENCE 1 DIAG--6/ VISION STENT RCA - In-person encounter Office Visit Yaw Thacker MD [facility] VITAL SIGNS Date Observation Value Provider Body Mass Index (Ratio) 25.11 kg/m2 Johny Thacker MD blood pressure, diastolic 88 mm[Hg] Ca therine [place] blood pressure, systolic 129 mm[Hg] Cat herine Raul blood pressure, cuff size regular Ca therine [place] oxygen saturation, oximetry 92 % Leslie [place] respiratory rate E&M 14 /min Catheri ne Raul pulse rate 72 /min Leslie [place] weight E&M 175 [lb_av] Leslie [place] height E&M 70 [in_i] Leslie [place] Body Mass Index (Ratio) 26.25 kg/m2 Johny [...] paolavladislavjuvencio pulse rate 78 /min [facility] weight E&M 188 [lb_av] [facility] height E&M 70 [in_i] [facility] Body Mass Index (Ratio) 27.55 kg/m2 [...] blood pressure, cuff size regular [facility], diastolic 77 mm[Hg] Ke rri [facility] blood pressure, systolic 142 mm[Hg] Salvador ri [facility] oxygen saturation, oximetry 98 % Danielle [...] kg/m2 Misa Thomas weight E&M 203.4 [lb_av] Ntae Macedo enson blood pressure, diastolic 76 mm[Hg] Md deloris Bryson blood pressure, systolic 135 mm[Hg] [...] pickett Dale blood pressure, systolic 122 mm[Hg] [facility] sabine Dale pulse rate #2 74 [facility] blood pressure, dey tolic, second observation 71 mm[Hg] [facility] blood pressure, syst olic, second observation 108 mm[Hg] [facility] oxygen saturation, oximetry 97 % [facility] pulse rate 77 /min [facility] blood pressure, diastolic 71 mm[Hg] Vi ctoria [facility] blood pressure, systolic 133 mm[Hg] Fadi richard [facility] pulse rate #2 69 [facility] blood pressure, dey tolic, second observation 66 mm[Hg] [facility] blood pressure, syst olic, second observation 108 mm[Hg] [facility] oxygen saturation, oximetry 97 % [facility] pulse rate 77 /min [facility] blood pressure, diastolic 81 mm[Hg] Vi ctoria Tebid blood pressure, systolic 117 mm[Hg] Fadi richard Tebid pulse rate #2 69 [place] bid blood pressure, dey tolic, second observation 93 mm[Hg] Radha Tebid blood pressure, syst olic, second observation 152 mm[Hg] Radha Tebid oxygen saturation, oximetry 97 % [place] bid pulse rate 75 /min [place]coe d blood pressure, diastolic 97 mm[Hg] Vi ctoria Tebid blood pressure, systolic 168 mm[Hg] Fadi richard Tebid pulse rate #2 57 [place] d blood pressure, dey tolic, second observation 70 mm[Hg] [facility], second observation 133 mm[Hg] [place]coe Tebid oxygen saturation, oximetry 97 % [place] d pulse rate 55 /min [place] Tebid blood pressure, diastolic 87 mm[Hg] Vi ctoria Tebid blood pressure, systolic 126 mm[Hg] Fadi richard Tebid pulse rate #2 73 [place] d blood pressure, dey tolic, second observation 73 mm[Hg] [facility], syst olic, second observation 118 mm[Hg] [place] Tebid oxygen saturation, oximetry 97 % [place]coe Ted pulse rate 56 /min [place] Tebid blood pressure, diastolic 68 mm[Hg] Vi ctoria Tebid blood pressure, systolic 133 mm[Hg] Fadi richard Tebid pulse rate #2 72 [facility], dey tolic, second observation 71 mm[Hg] [place] Tebid blood pressure, syst olic, second observation 124 mm[Hg] [place] Tebid oxygen saturation, oximetry 97 % [place] Tebid pulse rate 78 /min Radha Tebid blood pressure, diastolic 95 mm[Hg] Vi ctoria Tebid blood pressure, systolic 153 mm[Hg] Fadi richard Tebid pulse rate #2 75 Radha Tebid blood pressure, dey tolic, second observation 66 mm[Hg] Radha Tebid blood pressure, syst olic, second observation 130 mm[Hg] Radha Tebid oxygen saturation, oximetry 97 % Radha Tebid pulse rate 75 /min [place] Tebid blood pressure, diastolic 79 mm[Hg] Vi ctoria Tebid blood pressure, systolic 143 mm[Hg] Fadi richard Tebid pulse rate #2 87 [place] Tebid blood pressure, dey tolic, second observation 92 mm[Hg] Radha Tebid blood pressure, syst olic, second observation 109 mm[Hg] Radha Tebid oxygen saturation, oximetry 97 % Radha Tebid pulse rate 88 /min [place] Tebid blood pressure, diastolic 62 mm[Hg] Vi ctoria Tebid blood pressure, systolic 119 mm[Hg] Fadi richard Tebid pulse rate #2 71 [place] Tebid blood pressure, dey tolic, second observation 79 mm[Hg] Radha Tebid blood pressure, syst olic, second observation 128 mm[Hg] Radha Tebid oxygen saturation, oximetry 97 % [place] Tebid pulse rate 77 /min [place] Tebid blood pressure, diastolic 100 mm[Hg] Vi ctoria Tebid blood pressure, systolic 134 mm[Hg] Fadi richard Tebid pulse rate #2 77 [place] Tebid blood pressure, dey tolic, second observation [...] Fadi richard Tebid pulse rate #2 78 [place] Tebid blood pressure, dey tolic, second observation 76 mm[Hg] Radha Tebid blood pressure, syst olic, second observation 126 mm[Hg] Radha Tebid oxygen saturation, oximetry 97 % Radha Tebid pulse rate 68 /min [place] Tebid blood pressure, diastolic 82 mm[Hg] Vi [...] Fadi richard Tebid pulse rate #2 68 [place] Tebid blood pressure, dey tolic, second observation 76 mm[Hg] Radha d blood pressure, syst olic, second observation 128 mm[Hg] Radha d oxygen saturation, oximetry 97 % Radha d pulse rate 71 /min Radha d blood pressure, diastolic 79 mm[Hg] Vi ctoria Tebid blood pressure, systolic 132 mm[Hg] Fadi richard Tebid pulse rate #2 69 [place] blood pressure, dey tolic, second observation 59 mm[Hg] Radha blood pressure, syst olic, second observation 112 mm[Hg] Radha d oxygen saturation, oximetry 97 % Radha pulse rate 75 /min Radha blood pressure, diastolic 66 mm[Hg] Vi [facility] Ted blood pressure, systolic 124 mm[Hg] Fadi richard Ted pulse rate #2 61 [place] blood pressure, dey tolic, second observation 65 mm[Hg] Radha d blood pressure, syst olic, second observation 124 mm[Hg] Radha d oxygen saturation, oximetry 97 % Radha pulse rate 66 /min Radha blood pressure, diastolic 72 mm[Hg] Vi ctoria Tebid blood pressure, systolic 133 mm[Hg] Fadi richard Tebid pulse rate #2 79 [place] d blood pressure, dey tolic, second observation 77 mm[Hg] Radha d blood pressure, syst olic, second observation 124 mm[Hg] Radha d oxygen saturation, oximetry 97 % Radha d pulse rate 72 /min [place] d blood pressure, diastolic 74 mm[Hg] Vi ctoria Tebid blood pressure, systolic 141 mm[Hg] Fadi richard Tebid pulse rate #2 71 Radha Tebid blood pressure, dey tolic, second observation 66 mm[Hg] Radha Tebid blood pressure, syst olic, second observation 107 mm[Hg] Radha Tebid oxygen saturation, oximetry 97 % Radha Tebid pulse rate 70 /min [place] Tebid blood pressure, diastolic 78 mm[Hg] Vi ctoria Tebid blood pressure, systolic 137 mm[Hg] Fadi richard Tebid pulse rate #2 75 [facility], dey tolic, second observation 86 mm[Hg] Radha Tebid blood pressure, syst olic, second observation 138 mm[Hg] [facility], oximetry 97 % [facility] pulse rate 79 /min [facility] pressure, diastolic 76 mm[Hg] Vi ctoria Tebid blood pressure, systolic 130 mm[Hg] [facility] #2 71 [place] Tebid blood pressure, dey tolic, second observation 71 mm[Hg] Radha Tebid blood pressure, syst olic, second observation 101 mm[Hg] Radha Tebid oxygen saturation, oximetry 97 % [facility] pulse rate 68 /min [place] Tebid blood pressure, diastolic 76 mm[Hg] Vi ctoria Tebid blood pressure, systolic 139 mm[Hg] Fadi richard Tebid pulse rate #2 94 [facility] blood pressure, dey tolic, second observation 57 mm[Hg] [place] Tebid blood pressure, syst olic, second observation 114 mm[Hg] [place] Tebid oxygen saturation, oximetry 97 % [facility] pulse rate 96 /min [facility] blood pressure, diastolic 72 mm[Hg] Vi ctoria Tebid blood pressure, systolic 116 mm[Hg] Fadi richard Tebid pulse rate #2 76 [facility] blood pressure, dey tolic, second observation 84 mm[Hg] Radha bid blood pressure, syst olic, second observation 122 mm[Hg] [facility] saturation, oximetry 98 % [facility] pulse rate 71 /min [facility] blood pressure, diastolic 79 mm[Hg] Vi ctoria Tebid blood pressure, systolic 134 mm[Hg] Fadi richard Tebid pulse rate #2 70 [facility] blood pressure, dey tolic, second observation 71 mm[Hg] [facility] blood pressure, syst olic, second observation 119 mm[Hg] [facility] oxygen saturation, oximetry 98 % [facility] pulse rate 77 /min [facility] blood pressure, diastolic 78 mm[Hg] Vi [facility] Tebid blood pressure, systolic 125 mm[Hg] Fadi richard Tebid pulse rate #2 77 [place] bid blood pressure, dey tolic, second observation 70 mm[Hg] [facility] blood pressure, syst olic, second observation 125 mm[Hg] [facility] oxygen saturation, oximetry 98 % [facility] pulse rate 80 /min [facility] blood pressure, diastolic 72 mm[Hg] Vi ctoria Tebid blood pressure, systolic 135 mm[Hg] Fadi richard Tebid pulse rate #2 64 [facility] blood pressure, dey tolic, second observation 75 mm[Hg] [facility] blood pressure, syst olic, second observation 114 mm[Hg] [facility] oxygen saturation, oximetry 98 % [facility] pulse rate 60 /min [...] Edilberto Martinez RN pulse rate #2 77 [place] Tebid blood pressure, dey tolic, second observation [...] Fadi richard Tebid pulse rate #2 71 [place] Tebid blood pressure, dey tolic, second observation [...] % Radha Tebid pulse rate 78 /min [place] Tebid blood pressure, diastolic 79 mm[Hg] Vi ctoria Tebid blood pressure, systolic 110 mm[Hg] Fadi richard Tebid pulse rate #2 77 [place] Tebid blood pressure, dey tolic, second observation 66 mm[Hg] Radha Tebid blood pressure, syst olic, second observation 103 mm[Hg] Radha Tebid oxygen saturation, oximetry 98 % [place] Tebid pulse rate 70 /min [place] Tebid blood pressure, diastolic 78 mm[Hg] Vi ctoria Tebid blood pressure, systolic 123 mm[Hg] Fadi richard Tebid pulse rate #2 71 Radha Tebid blood pressure, dey tolic, second observation 77 mm[Hg] Radha Tebid blood pressure, syst olic, second observation 143 mm[Hg] Radha Tebid oxygen saturation, oximetry 98 % Radha Tebid pulse rate 76 /min [place] Tebid blood pressure, diastolic 82 mm[Hg] Vi ctoria Tebid blood pressure, systolic 152 mm[Hg] Fadi richard Tebid pulse rate #2 67 [place] Tebid blood pressure, dey tolic, second observation 62 mm[Hg] Radha blood pressure, syst olic, second observation 100 mm[Hg] Radha oxygen saturation, oximetry 98 % Radha pulse rate 75 /min Radha blood pressure, diastolic 82 mm[Hg] Vi ctoria Tebid blood pressure, systolic 156 mm[Hg] Fadi richard Ted pulse rate #2 80 [place] blood pressure, dey tolic, second observation 75 mm[Hg] Radha blood pressure, syst olic, second observation 118 mm[Hg] Radha oxygen saturation, oximetry 98 % Radha pulse rate 85 /min Radha blood pressure, diastolic 79 mm[Hg] Vi waoria Ted blood pressure, systolic 168 mm[Hg] Fadi richard Ted pulse rate #2 78 [place] blood pressure, dey tolic, second observation 68 mm[Hg] Radha blood pressure, syst olic, second observation 107 mm[Hg] Radha oxygen saturation, oximetry 98 % Radha pulse rate 76 /min Radha blood pressure, diastolic 71 mm[Hg] Vi ctoria Ted blood pressure, systolic 116 mm[Hg] Fadi richard Ted pulse rate #2 76 [place] blood pressure, dey tolic, second observation 66 mm[Hg] Radha d blood pressure, syst olic, second observation 111 mm[Hg] Radha d oxygen saturation, oximetry 98 % Radha pulse rate 77 /min [place] blood pressure, diastolic 76 mm[Hg] Vi ctoria [...] Jordon eph [place] pulse rate 51 /min Griffni [place] oxygen saturation, oximetry 95 % Griffin [...] 0-149 High cholesterol, serum 149 mg/dL [facility] 143-140 3385/04/ 08 calcium, serum 9.1 mg/dL [facility] 8.6-10.2 carbon dioxide, venous blood 26 mmol/L [facility] 20-29 chloride, serum 103 mmol/L [facility] 96-106 potassium, serum 4.0 mmol/L [facility] 3.5-5.2 sodium, serum 143 mmol/L [facility] 072-500 5287/04/ 08 urea nitrogen/creatinine ratio, serum 16 [facility] [...] Not Estab. platelet count 206 X10E3/UL [facility] [id number] 0528/04/ 08 red blood cell distribution width 12.5 [...] cell distribution width, size [facility].8 [facility]L [facility] granulocytes, percentage of total cells, blood 0.2 % [facility] nucleated red blood cells as percent of blood leukocytes 0.4 % [facility] - red blood cell (erythrocyte) count, per high power field 0.0 10*3/UL [facility] - eosinophils as percent of blood leukocytes 3.0 % [facility] - neutrophils as percent of blood [...] - 3.9 mean platelet volume 10.0 (?) [facility] 245.0 THOUSAND/ UL [...] 10*3/mm3 Gage Gonsalez hematocrit, blood 43.7 % [facility] international normalized ratio (INR) 1.0 [facility] alanine aminotransferase (SGPT), serum 32 1/L [facility] aspartate aminotransferase (SGOT), serum 20 1/L [facility] creatinine, serum 1.09 mg/dL [facility] potassium, serum 4.4 mmol/L [facility] sodium, serum 141 mmol/L [facility] LDL cholesterol, serum 83 mg/dL [facility] cholesterol, serum 165 mg/dL [facility] prothrombin time (patient) 10.6 s [facility] international normalized ratio (INR) 1.0 [facility] creatinine, serum 1.24 mg/dL [facility] urea nitrogen, blood 20 mg/dL [facility] carbon dioxide, serum, total 26 mmol/L [facility] chloride, serum 104 mmol/L [facility] potassium, serum 4.5 mmol/L [facility] sodium, serum 140 mmol/L [facility] platelet count 251 10*3/uL [facility] hematocrit, blood 42.8 % [facility] hemoglobin, blood 14.1 g/dL [facility] erythrocyte (RBC) count 4.50 10*6/mm3 [facility] leukocyte count, blood 7.2 10*3/mm3 [facility] anion gap, serum 10.3 [facility] estimated glomerular filtration rate 58 mL/min [facility] blood glucose, fasting 99 mg/dL [facility] calcium, serum 9.0 mg/dL [facility] creatinine, serum 1.28 mg/dL [facility] urea nitrogen, blood 26.5 mg/dL [facility] carbon dioxide, serum, total 27 mmol/L [facility] chloride, serum 104 mmol/L [facility] potassium, serum 4.3 mmol/L [facility] sodium, serum 137 mmol/L [facility] platelet count 239 10*3/uL [facility] red blood cell distribution width 13.4 % [facility] mean corpuscular hemoglobin concentration, RBC 33.4 g/dL [facility] mean corpuscular hemoglobin, RBC 32.3 pg [facility] mean corpuscular volume, RBC 96.8 fL [facility] hematocrit, blood 42.5 % [facility] hemoglobin, blood 14.2 g/dL [facility] erythrocyte (RBC) count 4.39 10*6/mm3 [facility] monocytes as percent of blood leukocytes 8.7 % [facility] lymphocytes as percent of blood leukocytes 23.0 % [facility] leukocyte count, blood 7.1 10*3/mm3 [facility] international normalized ratio (INR) 1.4 [facility] [place]rom[place] ([place]) 13.8 s [facility] very low density lipoproteins 33 mg/dL [facility] triglyceride, serum, fasting 163 mg/dL [facility] HDL cholesterol, serum 39 mg/dL [facility] LDL cholesterol, serum 131 mg/dL [facility] cholesterol, serum 203 mg/dL [facility] thyroid stimulating hormone, serum 1.720 u[IU]/mL [facility] albumin/globulin ratio, serum 1.5 [facility] protein, total, serum 7.2 g/dL [facility] albumin, serum 4.3 g/dL [facility] bilirubin, serum, total 0.3 mg/dL [facility] alkaline phosphatase, serum 88 1/L [facility] alanine aminotransferase (SGPT), serum 18 1/L [facility] aspartate aminotransferase (SGOT), serum 16 1/L [facility] calcium, serum 9.6 mg/dL [facility] blood glucose, fasting 82 mg/dL [facility] creatinine, serum 1.25 mg/dL [facility] urea nitrogen, blood 19 mg/dL [facility] carbon dioxide, serum, total 23 mmol/L [facility] chloride, serum 103 mmol/L [facility] potassium, serum 4.1 mmol/L [facility] sodium, serum 141 mmol/L [facility] platelet count 255 10*3/uL [facility] red blood cell distribution width 14.3 % [facility] mean corpuscular hemoglobin concentration, RBC 33.7 g/dL [facility] mean corpuscular hemoglobin, RBC 31.6 pg [facility] mean corpuscular volume, RBC 94 fL [facility] hematocrit, blood 41.9 % [facility] hemoglobin, blood 14.1 g/dL [facility] erythrocyte (RBC) count 4.46 10*6/mm3 [facility] monocyte count, blood 0.6 10*3/mm3 [facility] lymphocyte count, blood 1.8 10*3/mm3 [facility] monocytes as percent of blood leukocytes 8 % [facility] lymphocytes as percent of blood leukocytes 23 % [facility] leukocyte count, blood 7.5 10*3/mm3 [facility] prostate specific antigen 3.63 ng/mL [facility] HISTORY OF MEDICATION USE Medication [...] completed 1 tab by mouth daily - aJzmin Dale latanoprost 0.005% drops active 1 drop [...] f requency, days per week yes Leslie [place] caffeine use, averag e drinks per day 3 /d Leslie Raul passive cigarette sm hardik exposure yes Leslie [place] smoking, year quit 1998 Leslie Raul number [...] passive cigarette sm hardik exposure yes Malgorzata [facility] smoking, year quit 1998 [facility] number of years as a smoker 10 years or m [facility] Malgorzata Faustin smoking history, tot al pack/year 50 Malgorzata Block cigarette use yes [facility] smoking status Former smoker [...] h [place] smoking history, tot al pack/year [id number] Griffin Vishalacoarya smoking, year quit 1998 Griffin horn social history reviewed E&M reviewed [facility]aw [facility]acker [facility] sm hardik exposure yes Griffin Vishalaco smoking history, tot al pack/year 1 pack per day for 54 years [facility] smoking, year quit 2001 Griffin horn smoking [...] Date Observation Value Provider energy level yes [place] Tebid energy level yes [place] Tebid energy level yes [place] Tebid energy level yes [place] Tebid energy level yes Roscoe Tebid energy level yes [place] Tebid energy level yes Roscoe Tebid energy level yes [place] Tebid energy level yes [place] Tebid energy level yes [place] Tebid energy level yes [place] Tebid energy level yes [place] Tebid energy level yes [place] Tebid energy level yes [place] Tebid energy level yes [place] Tebid energy level yes [place] Tebid energy level yes [place] Tebid energy level yes [place] Tebid energy level yes [place] Tebid energy level yes [place] Tebid energy level yes Radha Tebid energy [...] person. Mood and affect are normal. Edilberto aMrtinez RN assessment of judgme nt and insight [...] Payer name Policy type / Coverage type [employer] red libertarian [employer] [facility] MEDIC[facility] ADVANTAGE (PPO) Other [id number] ADVANCE DIRECTIVES Name Date DISCUSSED - NO DECISION MADE TREATMENT PLAN Date Name Performer [id number],S, R epeat CTA scan in August. To discuss with PCP. Khushi Orlando NP [id number],S, N o dizziness. Continues on plavix. Khushi Orlando NP [id number],S, U nchanged. Khushi Orlando NP [id number],S, H is updated medication list for this problem includes: Atorvastatin 20 Mg Tablet (Atorvastatin) ..... Take 1 tablet by mouth every night Khushi [place] NP [id number],S, N o chest pain. Khsuhi [place] NP [id number],S, Yaw Thacker MD [id number],W,H e does not wish to do a PFT or ct so will refer him to the lung doctor Dr KELLOGG pulmonary consult. Yaw Thacker MD [id number],S, Yaw Thacker MD Cardiology: R epeat CTA [...] Thacker MD Cardiology:Recently in the hospital at [facility] with shortness of breath. Will obtain his [...] do not think this is progression of gambell CAD. Yaw Thacker MD Cardiology Follow up [...] severe Diffusion Defect Will refer patient to physical therapy assistant instructor. Yaw Thacker MD fu:PFT (01/10/2015) P ulmonary [...] 57%. Will schedule L/R cardiac cath at [facility] Yaw Thacker MD fu:Will do stress adenosine [...] (Atorvastatin calcium) ..... At Imdur 30 Mg [id number] (Isosorbide mononitrate) ..... One tablet daily Propranolol [...] calcium) ..... At hs Imdur 30 Mg [id number] (Isosorbide mononitrate) ..... One tablet daily Aspirin 81 Mg Tabs (Aspirin) ..... 1 tablet by mouth daily Orders: Vanna LAM ([id number]) Yaw Thacker MD : T he following medications were removed from the medication list: Propranolol Hcl 20 Mg Tabs (Propranolol hcl) ..... 1 tablet by mouth twice daily His updated medication list for this problem includes: Plavix 75 Mg Tabs (Clopidogrel bisulfate) ..... 1 tab by mouth daily Atorvastatin Calcium 20 Mg Tabs (Atorvastatin calcium) ..... At hs Imdur 30 Mg [id number] (Isosorbide mononitrate) ..... One tablet daily Aspirin [...] calcium) ..... At hs Imdur 30 Mg [id number] (Isosorbide mononitrate) ..... One tablet daily Propranolol [...] calcium) ..... At hs Imdur 30 Mg [id number] (Isosorbide mononitrate) ..... 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 At Orders: C omplete Echo ([id number]) Yaw Thacker MD Follow-up, c/o chest pain and sh ortness of breath Yaw Thacker MD Follow-up, c/o chest pain and shortness of breath: H is updated medication list for this problem includes: Plavix 75 Mg Tabs (Clopidogrel bisulfate) ..... 1 tab by mouth daily Orders: E KG ([id number]) Yaw Thakcer MD Follow-up, c/o chest pain and sh [...] thus i will do this at [facility] which has that facility Yaw Thacker MD [...] EF 78% which is within normal limits. [facility] (10/14/2010) C ardiac Cath: Normal left ventricular function. Normal left ventricular end diastolic pressure. 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 EF 60%. [facility] (11/05/2010) C ardiac Cath Comments: Successful stenting of the proximal RCA with a 3.5 x 15 Vision stent. [facility] (11/05/2010) C HOL: 203 (09/23/2010) LDL: 131 [...] MR. Mild TR. EF 64%. RVSP 23mmg. [facility] (10/14/2010) Yaw Thacker MD routine Yaw Thacker [...] EF 78% which is within normal limits. [facility] (10/14/2010) C ardiac Cath: Normal left ventricular function. Normal left ventricular end diastolic pressure. 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 EF 60%. [facility] (11/05/2010) C ardiac Cath Comments: Successful stenting of the proximal RCA with a 3.5 x 15 Vision stent. [facility] (11/05/2010) h e will need another stress test but will do an adenosine myoview Yaw Thacker MD follow up:check the free testosterone and vit d levels. O rders: V ITAMIN D, 25-HYDROXY, LC/MS/MS (59863) O ther ([id number]) Yaw Thacker MD follow up: H is [...] RBC, INDIC ES, WBC, PLT) DLCO - 80345 FRC - 22912 FVC - 10094 STR - Adenosine Complete Echo Full PFT [...] completed EKG Yaw Thacker MD completed SNOMED-CT: 36638465 Physical Exam, Performed: Pulse Exam of Foot Yaw Thacker MD completed EKG Yaw Thacker MD completed SNOMED-CT: 169326229 327793 Current Medications Documented Yaw Thacker MD completed SNOMED-CT: 14297796 Physical Exam, Performed: Pulse Exam of Foot Yaw Thacker MD completed SNOMED-CT: 889732372 219365 Current Medications Documented Yaw Thacker MD completed SNOMED-CT: 56943533 Physical Exam, Performed: Pulse Exam of Foot Yaw Thacker MD completed SNOMED-CT: 763678558 326303 Current Medications Documented Yaw Thacker MD completed SNOMED-CT: 76283629 Physical Exam, Performed: Pulse Exam of Foot Yaw Thacker MD completed SNOMED-CT: 069895267 182478 Current Medications Documented Yaw Thacker MD completed Stress EKG Jeremiah Serrano MD completed Regadenoson, 4 units Michael stoner MD completed Cardiolite, 2 units Michael izquierdo MD completed SPECT Images Michael Knowles MD completed SNOMED-CT: 35522121 Physical Exam, Performed: Pulse Exam of Foot Yaw Thacker MD completed EKG Yaw Thacker MD completed SNOMED-CT: 871346142 649954 Current Medications Documented Yaw Thacker MD completed SNOMED-CT: 69146202 Physical Exam, Performed: Pulse Exam of Foot Yaw Thacker MD completed SNOMED-CT: 842706277 438217 Current Medications Documented Yaw Thacker MD completed SNOMED-CT: 24757546 Physical Exam, Performed: Pulse Exam of Foot Yaw Thacker MD completed SNOMED-CT: 153680489 087717 Current Medications Documented Yaw Thacker MD completed BLOOD COUNT HEMOGLOBIN Yaw Thacker MD completed FVC - 13534 Yaw Thacker MD complete d FRC - 73292 Yaw Thacker MD complete d DLCO - 34512 Yaw Thacker MD complet ed EKG Yaw Thacker MD completed DLCO - 07046 Chinmay Bell completed SVC - 38542 Chinmay Bell completed FVC - 38354 Chinmay Bell completed EKG Yaw Thacker MD completed EKG Yaw Thacker MD completed EKG Yaw Thacker MD completed EKG Yaw Thacker MD completed EKG Yaw Thacker MD completed
--- OUTSIDE RECORDS SUMMARY | 2024-06-28 08:36 | XMS_ITS | Clinical Summary ---
Author Organization [facility] Address [address] [place] [address] Care Team Providers Care Field Sales Specialist Name Role Phone Angelo Mccloud MD Primary Care Provider [phone] Allergies No known active allergies Medications budesonide-formo [...] (12/16/2020): Added automatically from request for surgery [id number] CAD (coronary artery disease) 09/22/2020 Overview (09/22/2020): Added automatically from request for surgery [id number] SOB (shortness of breath) 09/22/2020 Overview (09/22/2020): Added automatically from request for surgery [id number] Surgical History Surgery Date Site/Laterality Comments CARDIAC [...] on file 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 Gender Identity Not on file Sexual Orientation [...] 03/25/2014, 2012 Medical Devices Implanted Type Area Manager Strategic Alliances Device Identifier Shelf Expiration Date Model / Serial / Lot Medtronic [employer] X [id number] Resolute Cale 3.5mm 2.1-2.7fr 26mm 140cm Rapid Exchange - [id number] Implanted:Qty: 1 on 09/29/2020 by Yaw Thacker MD at [facility] Med[employer] Inc [id number] / / Explanted Type Area Manager Strategic Alliances Device Identifier Shelf Expiration Date Model / Serial / Lot [employer] [id number] Inlay [place] 7fr 28cm Pusher Fluoro Marker Atraumatic Insertion Latex Free - [id number] Implanted:Qty: 1 on 01/01/2021 by Martin Alvarado MD at [facility] Explanted:Qty: 1 on 01/16/2021 Left: Ureter [employer] 06/26/2025 [id number] / / [id number] Insurance MEDICARE SOLUTIONS MEDICARE SOLUTIONS Advance Directives For more information, please contact: [phone] * Full Code (Latest Code Status on File) Date Activated Date Inactivated Comments 09/29/2020 10:32 AM 10/01/2020 6:10 PM Care Teams Field Sales Specialist Relationship Specialty Start Date End Date Angelo Mccloud MD [address] [facility] [address] [place] [address] PCP - General 10/01/20
--- OUTSIDE RECORDS SUMMARY | 2024-06-28 08:37 | XMS_ITS | Referral Summary ---
Author Organization [facility] Address [address] [place] [address] Care Team Providers Care Sports Medicine Coordinator Name Role Phone Angelo Mccloud MD Primary Care Provider [phone] Allergies No known active allergies Medications budesonide-formo [...] (12/16/2020): Added automatically from request for surgery [id number] CAD (coronary artery disease) 09/22/2020 Overview (09/22/2020): Added automatically from request for surgery [id number] SOB (shortness of breath) 09/22/2020 Overview (09/22/2020): Added automatically from request for surgery [id number] Social History Tobacco Use Types Packs/Day Years [...] on file 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 Gender Identity Not on file Sexual Orientation [...] on file Medical Devices Implanted Type Area Motor Coach Supervisor Device Identifier Shelf Expiration Date Model / Serial / Lot Medtronic [employer] X [id number] Resolute Cale 3.5mm 2.1-2.7fr 26mm 140cm Rapid Exchange - [id number] Implanted:Qty: 1 on 09/29/2020 by Yaw Thacker MD at [facility] [employer] Inc [id number] / / Explanted Type Area Motor Coach Supervisor Device Identifier Shelf Expiration Date Model / Serial / Lot [employer] [id number] Inlay [place] 7fr 28cm Pusher Fluoro Marker Atraumatic Insertion Latex Free - [id number] Implanted:Qty: 1 on 01/01/2021 by Martin Alvarado MD at [facility] Explanted:Qty: 1 on 01/16/2021 Left: Ureter [employer] 06/26/2025 [id number] / / [id number] Insurance MEDICARE SOLUTIONS Member Subscriber Plan / Payer (Ef fective 2020-Present) Name:Rogerio Vivar Relation to Subscriber:Self Name:Rogerio Vivar Payer ID:[id number] (NAIC) Type:[facility] MEDICARE Address: [place] [id number] [place] [id number] MEDICARE SOLUTIONS Member Subscriber Plan / Payer (Ef fective 2020-Present) Name:Rogerio Vivar Relation to Subscriber:Self Name:Rogerio Vivar Payer ID:[id number] (NAIC) Type:[facility] MEDICARE Address: [place] [id number] [place] [id number] MEDICARE SOLUTIONS Advance Directives For more information, please contact: [phone] * Full Code (Latest Code Status on File) Date Activated Date Inactivated Comments 09/29/2020 10:32 AM 10/01/2020 6:10 PM Care Teams Sports Medicine Coordinator Relationship Specialty Start Date End Date Angelo Mccloud MD [address] [place] [address] PCP - General 10/01/20
--- OUTSIDE RECORDS SUMMARY | 2024-06-28 08:37 | XMS_ITS | Clinical Summary ---
Author Organization [facility] Address [facility]. [place], [place] [address] [place] [address] Care Team Providers Care Venetian Blind Maker Name Role Phone Unavailable Primary Care Provider [...] season) 2024 Influenza Adult (#1) 2024 Meningococcal B Vaccine Aged Out No l onger eligible based on patient's age to complete this topic Meningococcal Vaccine Aged Out No amber isaiah eligible based on patient's age to complete this topic RSV Immunizations Under 20 Months Aged Out No longer eligible based on patient's age to complete this topic
--- NOTE | 2024-06-28 09:08 | ED_ITS ---
HPI - General Adult General Chief complaint: Abdominal Pain Stated complaint: can't poop Time Seen by Provider: 06/28/24 08:28 History of Present Illness HPI narrative: 88-year-old male present to the emergency department for evaluation for recurrent constipation issues. Patient states he has not had a significant bowel movement since the last time he was here. Patient does admit that he does not drink enough water. Patient did not yet have follow-up with GI and patient has only been drinking 2 oz water along with a single dose of MiraLax a day. Related Data Home Medications ?Medication ?Instructions ?Recorded ?Confirmed ?Last Taken ?Type atorvastatin 20 mg tablet 20 mg PO DAILY 10/16/21 06/20/24 06/19/24 History budesonide-formoterol HFA 160 2 puff inhalation BID 10/16/21 05/30/24 05/29/24 History mcg-4.5 mcg/actuation aerosol inhaler (Symbicort) bupropion HCl 150 mg tablet,12 hr 150 mg PO BID 10/16/21 06/20/24 06/19/24 History sustained-release doxazosin 4 mg tablet 4 mg PO DAILY 10/16/21 06/20/24 06/19/24 History isosorbide mononitrate 30 mg 30 mg PO DAILY 10/16/21 06/20/24 06/19/24 History tablet,extended release 24 hr Aspir-81 81 mg PO DAILY 05/09/23 06/20/24 06/19/24 History albuterol sulfate 90 mcg/actuation 2 puff inhalation PRN PRN Wheezing 05/09/23 06/20/24 06/19/24 History aerosol inhaler brimonidine 0.2 %-timolol 0.5 % 1 drp RIGHT EYE .COMPLEX 05/09/23 06/20/24 06/19/24 History eye drops (Combigan) latanoprost 0.005 % eye drops 1 drp RIGHT EYE HS 05/09/23 06/20/24 06/19/24 History omeprazole 40 mg capsule,delayed 40 mg PO DAILY 05/25/24 06/20/24 06/19/24 History release gabapentin 600 mg tablet 600 mg PO HS 05/30/24 06/20/24 06/19/24 History Allergies Allergy/AdvReac Type Severity Reaction Status Date / Time No Known Allergies Allergy Mild Verified 06/28/24 08:33 Review of Systems 2 Review of Systems: All systems reviewed & are unremarkable except as noted in HPI and below PMFSH Past Medical History Medical History (Updated 06/28/24 @ 12:08 by Darrian Longo MD) PAD (peripheral artery disease) Glaucoma Hard of hearing Legally blind Diverticular hemorrhage Acute blood loss anemia Colon, diverticulosis Rectal bleeding Sleep apnea Emphysema/COPD Surgical History Surgical History (Updated 05/30/24 @ 12:32 by Moshe Winters MD) History of cholecystectomy History of cervical spinal surgery H/O carotid endarterectomy Family History Family History Other Adopted Social History Social History (Updated 05/30/24 @ 12:33 by Moshe Winters MD) Social History: Quit smoking about 50 years ago after smoking pack a day for about 25 years. No alcohol or drug use. Lives alone. Surrogate decision maker -Nina (friend) Code status -full Smoking status: Former smoker Tobacco type: cigarettes Alcohol intake: never Substance use: never Substance use type: does not use Do You Feel Safe in your Home?: Yes Lack of Transportation: No Lack of Food: Never True Current Housing: I Have Housing Concerned About Future Housing: No Difficulty Paying Gas/Electric Bills: No Difficulty Paying for Meds: No Currently Unemployed: No Education: Trade/Vocational Certificate Difficulty w/ Childcare or Family Care: No Living arrangements: alone Occupation/Education: retired Gender identity (if verbalized by the patient): Male Spiritual care concerns: No Exam 2 Narrative: APPEARANCE: Well appearing, no pain, no distress, well-nourished. HEAD: normocephalic, atraumatic. EYES: PERRLA/EOMI, conjunctivae clear. NOSE: Normal no drainage EARS:TMS clear with good light reflex. THROAT: Pharynx clear, no exudate. NECK: Supple. No adenopathy, no masses. RESPIRATORY: Airway patent, respirations nonlabored. Clear to auscultation bilaterally, no rales, rhonchi, wheezing. CARDIOVASCULAR: Regular rate and rhythm without murmurs rubs or gallops. ABDOMINAL: Soft, nontender, nondistended, normal bowel sounds MUSCULOSKELETAL: Moves all extremities. Strength/ROM intact, No edema, No calf tenderness. NEURO: Alert. Cranial nerves II through XII intact. Good gait. Good coordination SKIN: Warm, dry. Normal Color Course Vital Signs Vital signs: Vital Signs Temperature 97.7 F 06/28/24 08:28 Pulse Rate 60 06/28/24 08:28 Respiratory Rate 16 06/28/24 08:28 Blood Pressure 123/79 06/28/24 08:28 Pulse Oximetry 95 06/28/24 08:28 Oxygen Delivery Room Air 06/28/24 08:28 Temperature 97.9 F 06/28/24 12:29 Pulse Rate 67 06/28/24 12:29 Respiratory Rate 16 06/28/24 12:29 Blood Pressure 134/76 06/28/24 12:29 Pulse Oximetry 97 06/28/24 12:29 Oxygen Delivery Room Air 06/28/24 08:28 Medical Decision Making MDM Narrative Medical decision making narrative: 88-year-old male present to the emergency department for evaluation for concern for constipation. Patient is afebrile with no leukocytosis and a hemoglobin of 12.7. INR is 1.0. Patient has no acute abnormalities on his CMP. CT scan did not reveal any bowel obstruction or significant constipation. Patient states he drinks approximately 2 glasses of water at day but does drink coffee. Patient states he has decreased p.o. intake. Was encouraged to have close follow-up with GI, to increase his water intake and to increase his food intake. At time of evaluation patient denies any pain or complaint. Patient family are comfortable plan for discharge and close follow-up. Differential Diagnosis Differential Diagnosis: Colitis, diverticulitis, constipation, decreased p.o. intake Vital Signs Vital Signs: Vital Signs Temperature 97.7 F 06/28/24 08:28 Pulse Rate 60 06/28/24 08:28 Respiratory Rate 16 06/28/24 08:28 Blood Pressure 123/79 06/28/24 08:28 Pulse Oximetry 95 06/28/24 08:28 Oxygen Delivery Room Air 06/28/24 08:28 Temperature 97.9 F 06/28/24 12:29 Pulse Rate 67 06/28/24 12:29 Respiratory Rate 16 06/28/24 12:29 Blood Pressure 134/76 06/28/24 12:29 Pulse Oximetry 97 06/28/24 12:29 Oxygen Delivery Room Air 01/30/25 08:28 Lab Data Lab results reviewed: Yes I reviewed the patient's lab results. 06/28/24 09:25 06/28/24 09:25 Labs: Lab Results 06/28/24 Range/Units 09:25 WBC 4.4 L (4.5-10.0) K/mm3 RBC 3.82 L (4.6-6.20) M/mm3 Hgb 12.7 L (14.0-18.0) g/dL Hct 40.1 L (42.0-52.0) % MCV 105.0 H (80-100) fl MCH 33.2 (26-34) pg MCHC 31.7 L (32-36) g/dl RDW 13.3 (11.5-14.5) % Plt Count 180 (150-375) k/mm3 MPV 9.2 (7.4-10.4) fl Immature Gran % (Auto) 0.7 H (0-0.5) % Neut % (Auto) 58.4 (45.5-73.1) % Lymph % (Auto) 25.4 (18.3-44.2) % [place] % (Auto) 13.4 H (2.6-8.5) % Eos % (Auto) 1.6 (0-4.4) % Baso % (Auto) 0.5 (0.2-1.2) % Lymph # (Auto) 1.12 (0.9-3.2) K/mm3 [place] # (Auto) 0.6 (0.1-0.6) K/mm3 Eos # (Auto) 0.1 (0-0.3) K/mm3 Baso # (Auto) 0.0 (0.0-0.1) K/mm3 Abs Immat Gran (auto) 0.03 (0.00-0.031) K/mm3 Absolute Neuts (auto) 2.6 (1.3-6.7) K/mm3 Absolute Nucleated RBC 0.000 (0.0-0.012) K/mm3 Nucleated RBC % 0.0 (0.0-0.2) % PT 14.1 (11.1-14.7) Seconds INR 1.0 APTT 36.5 (22.3-36.8) Seconds Sodium 139 (137-145) mmol/L Potassium 4.0 (3.4-5.0) mmol/L Chloride 105 (98-107) mmol/L Carbon Dioxide 28 (22-30) mmol/L Anion Gap 6 (4-12) mmol/L BUN 12 D (9-20) mg/dL Creatinine 0.86 (0.7-1.3) mg/dL Estim Creat Clear Calc 55 ml/min Estimated GFR > 60 (59 - ) Glucose 98 (65-110) mg/dL Calcium 8.8 (8.4-10.2) mg/dL Total Bilirubin 0.7 (0.2-1.3) mg/dL AST 19 (17-59) U/L ALT 17 (6-50) U/L Alkaline Phosphatase 104 (38-126) U/L Total Protein 6.0 L (6.3-8.2) g/dL Albumin 3.3 L (3.5-5.1) g/dL Imaging Data Radiologist's impression: Impressions Abdomen/Pelvis CT 06/28/24 11:03 IMPRESSION: 1. Small sliding hiatal hernia. 2. Left inguinal hernia containing fat. 3. Arterial occlusive disease. 4. Chronic interstitial lung disease. Discharge Plan Discharge Clinical Impression: Constipation Patient Disposition: Home, Self-Care Condition: Stable Instructions: Antibiotic Form, Constipation (DC) Additional Instructions: Increase your water intake. Increase your MiraLax intake. Continue have close follow-up with GI. If you have any worsening symptoms please call or return to the emergency department. Patient Language: Bengali Prescriptions: No Action cephalexin 500 mg capsule 500 mg PO Q8H 7 Days Qty: 21 0RF bupropion HCl 150 mg tablet sustained-release 12 hr 150 mg PO BID atorvastatin 20 mg tablet 20 mg PO DAILY isosorbide mononitrate 30 mg tablet extended release 24 hr 30 mg PO DAILY doxazosin 4 mg tablet 4 mg PO DAILY budesonide-formoterol [Symbicort] 160-4.5 mcg/actuation HFA aerosol inhaler 2 puff inhalation BID Aspir-81 81 mg PO DAILY latanoprost 0.005 % drops 1 drp RIGHT EYE HS albuterol sulfate 90 mcg/actuation HFA aerosol inhaler 2 puff INHALATION PRN PRN (Reason: Wheezing) brimonidine-timolol [Combigan] 0.2-0.5 % drops 1 drp RIGHT EYE .COMPLEX Rx Instructions: 1 drop into right eye at 0900 and 1200; omeprazole 40 mg capsule,delayed release(DR/EC) 40 mg PO DAILY gabapentin 600 mg tablet 600 mg PO HS azithromycin [Zithromax] 250 mg Tablet 250 mg PO DAILY Qty: 4 0RF guaifenesin [Mucus Relief ER] 600 mg Tablet Extended Release 12hr 1,200 mg PO Q12HR 7 Days Qty: 28 0RF Incruse Ellipta 62.5 mcg/actuation Blister With Device 1 inh inhalation DAILYRT Qty: 30 0RF loratadine 10 mg Tablet 10 mg PO QAM Qty: 30 0RF fluticasone propionate 50 mcg/actuation [place],Suspension 2 spray intranasal HS Qty: 16 0RF levofloxacin 750 mg tablet 750 mg PO Q48H Qty: 2 0RF Rx Instructions: take tonight (06/04/24) and in the evening of 06/06/24 Follow-up/Referrals: Randy,Irwin Black MD [Primary Care Provider] - Robert Marte MD [Physician] -
[2024-06-28 09:33] LABS: Basophils Percent Auto 0.5 % (0.2-1.2); Eosinophils Absolute Auto 0.1 K/mm3 (0-0.3); Eosinophils Percent Auto 1.6 % (0-4.4); Hematocrit 40.1 % (42.0-52.0); Hemoglobin 12.7 g/dL (14.0-18.0); Immature Granulocyte Absolute 0.03 K/mm3 (0.00-0.031); Immature Granulocyte Percent A 0.7 % (0-0.5); Lymphocytes Absolute Auto 1.12 K/mm3 (0.9-3.2); Lymphocytes Percent Auto 25.4 % (18.3-44.2); Mean Corpuscular HGB Conc 31.7 g/dl (32-36); Mean Corpuscular Hemoglobin 33.2 pg (26-34); Mean Platelet Volume 9.2 fl (7.4-10.4); Monocytes Absolute Auto 0.6 K/mm3 (0.1-0.6); Monocytes Percent Auto 13.4 % (2.6-8.5); Neutrophils Absolute Auto 2.6 K/mm3 (1.3-6.7); Neutrophils Percent Auto 58.4 % (45.5-73.1); Platelet Count Result 180 k/mm3 (150-375); Red Blood Count 3.82 M/mm3 (4.6-6.20); Red Cell Distribution Width 13.3 % (11.5-14.5); White Blood Count 4.4 K/mm3 (4.5-10.0)
[2024-06-28 09:44] LABS: Prothrombin Time 14.1 Seconds (11.1-14.7)
[2024-06-28 09:45] LABS: Alanine Aminotransferase 17 U/L (6-50); Albumin Level 3.3 g/dL (3.5-5.1); Alkaline Phosphatase 104 U/L (38-126); Anion Gap 6 mmol/L (4-12); Aspartate Amino Transferase 19 U/L (17-59); Bilirubin,Total 0.7 mg/dL (0.2-1.3); Blood Urea Nitrogen 12 mg/dL (9-20); Calcium 8.8 mg/dL (8.4-10.2); Carbon Dioxide 28 mmol/L (22-30); Chloride 105 mmol/L (98-107); Estimated CRCL calculation 55 ml/min; Estimated Glomerular Filt Rate > 60; Glucose 98 mg/dL (65-110); Partial Thromboplastin Time 36.5 Seconds (22.3-36.8); Sodium 139 mmol/L (137-145)
[2024-06-28 10:34] VITALS: BP 104/65; PULSE 55; RESP 18; O2SAT 96
--- OUTSIDE RECORDS SUMMARY | 2024-06-28 10:35 | XMS_ITS | Clinical Summary ---
Author Organization [facility] Address [address] [place] [id number] Care Team Providers Care Imaging Administrator Name Role Phone Angelo Mccloud MD Primary Care Provider [phone] Allergies No known active allergies Medications budesonide-formo [...] (12/16/2020): Added automatically from request for surgery [id number] CAD (coronary artery disease) 09/22/2020 Overview (09/22/2020): Added automatically from request for surgery [id number] SOB (shortness of breath) 09/22/2020 Overview (09/22/2020): Added automatically from request for surgery [id number] Surgical History Surgery Date Site/Laterality Comments CARDIAC [...] on file 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 Gender Identity Not on file Sexual Orientation [...] 03/25/2014, 2012 Medical Devices Implanted Type Area Mounter Smoking Pipe Device Identifier Shelf Expiration Date Model / Serial / Lot [employer] X [id number] Resolute Cale 3.5mm 2.1-2.7fr 26mm 140cm Rapid Exchange - [id number] Implanted:Qty: 1 on 09/29/2020 by Yaw Thacker MD at [facility] [employer] [id number] / / Explanted Type Area Mounter Smoking Pipe Device Identifier Shelf Expiration Date Model / Serial / Lot [employer] [id number] Inlay [place] 7fr 28cm Pusher Fluoro Marker Atraumatic Insertion Latex Free - [id number] Implanted:Qty: 1 on 01/01/2021 by Martin Alvarado MD at [facility] Explanted:Qty: 1 on 01/16/2021 Left: Ureter [employer] 06/26/2025 [id number] / / [id number] Insurance MEDICARE SOLUTIONS [facility] MEDIC[facility] Address: [address] [phone] [facility] MED[facility] Address: [address] [address] [place] [address] MEDICARE SOLUTIONS [facility] MED[facility] Address: [address] [address] [place] [address] Advance Directives For more information, please contact: [phone] * Full Code (Latest Code Status on File) Date Activated Date Inactivated Comments 09/29/2020 10:32 AM 10/01/2020 6:10 PM Care Teams Imaging Administrator Relationship Specialty Start Date End Date Angelo Mccloud MD [address] [facility] [address] [place] [address] PCP - General 10/01/20
--- OUTSIDE RECORDS SUMMARY | 2024-06-28 10:35 | XMS_ITS | CONTINUITY OF CARE DOCUMENT ---
Author Name isaiah, diegoser Address Unknown Organization [facility] Address [address] [facility] [address] [place] [address] Phone [phone] Care Team Providers Care Knapsack Sprayer Name Role Phone Jeremiah Serrano MD Unavailable [phone] Irwin Padilla MD Unavailable Irwin Padilla MD Unavailable [phone] PROBLEMS Condition Status Date Provider Notes Hyperlipidemia active 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 Yaw Thacker MD ENCOUNTERS Date Type Provider Location Encounter Diag nosis - In-person encounter Office Visit Yaw Thacker MD [facility] Lung nodulesCoronavirus infection, 05/2021 - In-person encounter Office Visit Yaw Thacker MD [facility] - In-person encounter Office Visit Yaw Thacker MD [facility] - In-person encounter Office Visit Yaw Thacker MD [facility] - In-person encounter Office Visit Yaw Thacker MD [facility] - In-person encounter Office Visit Yaw Thacker MD [facility] Carotid artery disease s/p L CEA - In-person encounter Office Visit Yaw Thacker MD [facility] CAD-09/08 CAROTID NEGPreoperative cardiovascular examinationClaudication, intermittent - In-person encounter Office Visit Yaw Thacker MD [facility] - In-person encounter Office Visit Yaw Thacker MD [facility] Dizziness - In-person encounter Office Visit Yaw Thacker MD [facility] - In-person encounter Office Visit Yaw Thacker MD [facility] - In-person encounter Office Visit Yaw Thacker MD [facility] - In-person encounter Office Visit Yaw Thacker MD [facility] - In-person encounter Office Visit Yaw Thacker MD [facility] Hyperlipidemia - In-person encounter Office Visit Yaw Thacker MD [facility] - In-person encounter Office Visit Yaw Thacker MD [facility] Leg numbness - In-person encounter Office Visit Yaw Thacker MD [facility] - In-person encounter Office Visit Yaw Thacker MD [facility] Office - In-person encounter Office Visit Yaw Thacker MD [facility] SHORTNESS OF BREATH - In-person encounter Office Visit Yaw Thacker MD [facility] - In-person encounter Office Visit Yaw Thacker MD [facility] - In-person encounter Office Visit Yaw Thacker MD [facility] - In-person encounter Office Visit Yaw Thacker MD [facility] - In-person encounter Office Visit Yaw Thacker MD [facility] CAD-5/12 STENT XIENCE 1 DIAG--6/ VISION STENT RCA - In-person encounter Office Visit Yaw Thacker MD [facility] - In-person encounter Office Visit Yaw Thacker MD [facility] CAD-5/12 STENT XIENCE 1 DIAG--6/11 VISION STENT RCA - In-person encounter Office Visit Yaw Thacker MD [facility] - In-person encounter Office Visit Yaw Thacker MD [facility] CAD-5/12 STENT XIENCE 1 DIAG--6/11 VISION STENT RCA - In-person encounter Office Visit Yaw Thacker MD [facility] CAD-5/12 STENT XIENCE 1 DIAG--6/ VISION STENT RCA - In-person encounter Office Visit Yaw Thacker MD [facility] VITAL SIGNS Date Observation Value Provider Body Mass Index (Ratio) 25.11 kg/m2 Johny Thacker MD blood pressure, diastolic 88 mm[Hg] Ca therine Crosby blood pressure, systolic 129 mm[Hg] Cat herine Raul blood pressure, cuff size regular Ca therine Crosby oxygen saturation, oximetry 92 % Leslie Crosby respiratory rate E&M 14 /min Catheri ne Raul pulse rate 72 /min Leslie Crosby weight E&M 175 [lb_av] Leslie Crosby height E&M 70 [in_i] Leslie Crosby Body Mass Index (Ratio) 26.25 kg/m2 Johny [...] paolavladislavjuvencio pulse rate 78 /min Danielle Ring [facility] weight E&M 188 [lb_av] Danielle Ring [facility] height E&M 70 [in_i] Danielle Ring [facility] Body Mass Index (Ratio) 27.55 kg/m2 [...] blood pressure, cuff size regular [facility], diastolic 77 mm[Hg] Ke rri [facility] blood pressure, systolic 142 mm[Hg] Salvador ri [facility] oxygen saturation, oximetry 98 % Danielle [...] Macedo enson blood pressure, diastolic 76 mm[Hg] Sc deloris Bryson blood pressure, systolic 135 mm[Hg] [...] kg/m2 Misa Thomas pulse rate 65 /min aNte Alvarado giovannion oxygen saturation, oximetry 95 % [...] blood pressure, systolic 122 mm[Hg] [facility] sabine Dale pulse rate #2 74 [facility] blood pressure, dey tolic, second observation 71 mm[Hg] [facility] blood pressure, syst olic, second observation 108 mm[Hg] [facility] oxygen saturation, oximetry 97 % [facility] pulse rate 77 /min [facility] blood pressure, diastolic 71 mm[Hg] Vi ctoria [facility] blood pressure, systolic 133 mm[Hg] Fadi richard [facility] pulse rate #2 69 [facility] blood pressure, dey tolic, second observation 66 mm[Hg] [facility] blood pressure, syst olic, second observation 108 mm[Hg] [facility] oxygen saturation, oximetry 97 % [facility] pulse rate 77 /min [facility] blood pressure, diastolic 81 mm[Hg] Vi ctoria Tebid blood pressure, systolic 117 mm[Hg] Fadi richard Tebid pulse rate #2 69 [place] bid blood pressure, dey tolic, second observation 93 mm[Hg] Radha Tebid blood pressure, syst olic, second observation 152 mm[Hg] Radha Tebid oxygen saturation, oximetry 97 % [place] bid pulse rate 75 /min [place] d blood pressure, diastolic 97 mm[Hg] Vi ctoria Tebid blood pressure, systolic 168 mm[Hg] Fadi richard Tebid pulse rate #2 57 [place] d blood pressure, dey tolic, second observation 70 mm[Hg] [facility], second observation 133 mm[Hg] [place] Tebid oxygen saturation, oximetry 97 % [place] d pulse rate 55 /min [place] Tebid blood pressure, diastolic 87 mm[Hg] Vi ctoria Tebid blood pressure, systolic 126 mm[Hg] Fadi richard Tebid pulse rate #2 73 [place] d blood pressure, dey tolic, second observation 73 mm[Hg] [facility], syst olic, second observation 118 mm[Hg] [place] Tebid oxygen saturation, oximetry 97 % [place] Ted pulse rate 56 /min [place] Tebid blood pressure, diastolic 68 mm[Hg] Vi ctoria Tebid blood pressure, systolic 133 mm[Hg] Fadi richard Tebid pulse rate #2 72 [facility], dey tolic, second observation 71 mm[Hg] [place] Tebid blood pressure, syst olic, second observation 124 mm[Hg] [place] Tebid oxygen saturation, oximetry 97 % [place] Tebid pulse rate 78 /min Radha Tebid blood pressure, diastolic 95 mm[Hg] Vi ctoria Tebid blood pressure, systolic 153 mm[Hg] Fadi richard Tebid pulse rate #2 75 Radha Tebid blood pressure, dey tolic, second observation 66 mm[Hg] Radha Tebid blood pressure, syst olic, second observation 130 mm[Hg] Radha Tebid oxygen saturation, oximetry 97 % Radha Tebid pulse rate 75 /min [place] Tebid blood pressure, diastolic 79 mm[Hg] Vi ctoria Tebid blood pressure, systolic 143 mm[Hg] Fadi richard Tebid pulse rate #2 87 [place] Tebid blood pressure, dey tolic, second observation 92 mm[Hg] Radha Tebid blood pressure, syst olic, second observation 109 mm[Hg] Radha Tebid oxygen saturation, oximetry 97 % Radha Tebid pulse rate 88 /min [place] Tebid blood pressure, diastolic 62 mm[Hg] Vi ctoria Tebid blood pressure, systolic 119 mm[Hg] Fadi richard Tebid pulse rate #2 71 [place] Tebid blood pressure, dey tolic, second observation 79 mm[Hg] Radha Tebid blood pressure, syst olic, second observation 128 mm[Hg] Radha Tebid oxygen saturation, oximetry 97 % [place] Tebid pulse rate 77 /min [place] Tebid blood pressure, diastolic 100 mm[Hg] Vi ctoria Tebid blood pressure, systolic 134 mm[Hg] Fadi richard Tebid pulse rate #2 77 [place] Tebid blood pressure, dey tolic, second observation [...] Fadi richard Tebid pulse rate #2 78 [place] Tebid blood pressure, dey tolic, second observation 76 mm[Hg] Radha Tebid blood pressure, syst olic, second observation 126 mm[Hg] Radha Tebid oxygen saturation, oximetry 97 % Radha Tebid pulse rate 68 /min [place] Tebid blood pressure, diastolic 82 mm[Hg] Vi [...] Fadi richard Tebid pulse rate #2 68 [place] Tebid blood pressure, dey tolic, second observation 76 mm[Hg] Radha d blood pressure, syst olic, second observation 128 mm[Hg] Radha d oxygen saturation, oximetry 97 % Radha d pulse rate 71 /min Radha d blood pressure, diastolic 79 mm[Hg] Vi ctoria Tebid blood pressure, systolic 132 mm[Hg] Fadi richard Tebid pulse rate #2 69 [place] blood pressure, dey tolic, second observation 59 mm[Hg] Radha blood pressure, syst olic, second observation 112 mm[Hg] Radha d oxygen saturation, oximetry 97 % Radha pulse rate 75 /min Radha blood pressure, diastolic 66 mm[Hg] Vi [facility] Ted blood pressure, systolic 124 mm[Hg] Fadi richard Ted pulse rate #2 61 [place] blood pressure, dey tolic, second observation 65 mm[Hg] Radha d blood pressure, syst olic, second observation 124 mm[Hg] Radha d oxygen saturation, oximetry 97 % Radha pulse rate 66 /min Radha blood pressure, diastolic 72 mm[Hg] Vi ctoria Tebid blood pressure, systolic 133 mm[Hg] Fadi richard Tebid pulse rate #2 79 [place] d blood pressure, dey tolic, second observation 77 mm[Hg] Radha d blood pressure, syst olic, second observation 124 mm[Hg] Radha d oxygen saturation, oximetry 97 % Radha d pulse rate 72 /min [place] d blood pressure, diastolic 74 mm[Hg] Vi ctoria Tebid blood pressure, systolic 141 mm[Hg] Fadi richard Tebid pulse rate #2 71 Radha Tebid blood pressure, dey tolic, second observation 66 mm[Hg] Radha Tebid blood pressure, syst olic, second observation 107 mm[Hg] Radha Tebid oxygen saturation, oximetry 97 % Radha Tebid pulse rate 70 /min [place] Tebid blood pressure, diastolic 78 mm[Hg] Vi ctoria Tebid blood pressure, systolic 137 mm[Hg] Fadi richard Tebid pulse rate #2 75 [facility], dey tolic, second observation 86 mm[Hg] Radha Tebid blood pressure, syst olic, second observation 138 mm[Hg] [facility], oximetry 97 % [facility] pulse rate 79 /min [facility] blood pressure, diastolic 76 mm[Hg] Vi ctoria Tebid blood pressure, systolic 130 mm[Hg] [facility] #2 71 [place] Tebid blood pressure, dey tolic, second observation 71 mm[Hg] Radha Tebid blood pressure, syst olic, second observation 101 mm[Hg] Radha Tebid oxygen saturation, oximetry 97 % [facility] pulse rate 68 /min [place] Tebid blood pressure, diastolic 76 mm[Hg] Vi ctoria Tebid blood pressure, systolic 139 mm[Hg] Fadi richard Tebid pulse rate #2 94 [facility] blood pressure, dey tolic, second observation 57 mm[Hg] [place] Tebid blood pressure, syst olic, second observation 114 mm[Hg] [place] Tebid oxygen saturation, oximetry 97 % [facility] pulse rate 96 /min [facility] blood pressure, diastolic 72 mm[Hg] Vi ctoria Tebid blood pressure, systolic 116 mm[Hg] Fadi richard Tebid pulse rate #2 76 [facility] blood pressure, dey tolic, second observation 84 mm[Hg] Radha bid blood pressure, syst olic, second observation 122 mm[Hg] [facility], oximetry 98 % [facility] pulse rate 71 /min [facility] blood pressure, diastolic 79 mm[Hg] Vi ctoria Tebid blood pressure, systolic 134 mm[Hg] Fadi richard Tebid pulse rate #2 70 [facility], dey tolic, second observation 71 mm[Hg] [facility], syst olic, second observation 119 mm[Hg] [facility] oxygen saturation, oximetry 98 % [facility] pulse rate 77 /min [facility], diastolic 78 mm[Hg] Vi [facility] Tebid blood pressure, systolic 125 mm[Hg] Fadi richard Tebid pulse rate #2 77 [place] bid blood pressure, dey tolic, second observation 70 mm[Hg] [facility], syst olic, second observation 125 mm[Hg] [facility] oxygen saturation, oximetry 98 % [facility] pulse rate 80 /min [facility] blood pressure, diastolic 72 mm[Hg] Vi ctoria Tebid blood pressure, systolic 135 mm[Hg] Fadi richard Tebid pulse rate #2 64 [facility] blood pressure, dey tolic, second observation 75 mm[Hg] [facility] blood pressure, syst olic, second observation 114 mm[Hg] [facility] oxygen saturation, oximetry 98 % [facility] pulse rate 60 /min Radha Tebid [...] Edilberto Martinez RN pulse rate #2 77 [place] Tebid blood pressure, dey tolic, second observation 68 mm[Hg] Radha Tebid blood pressure, syst olic, second observation 126 mm[Hg] Radha Tebid oxygen saturation, oximetry 98 % Radha Tebid pulse rate 84 /min Ardha Tebid blood pressure, diastolic 85 mm[Hg] Vi [...] Fadi richard Tebid pulse rate #2 71 [place] Tebid blood pressure, dey tolic, second observation [...] % Radha Tebid pulse rate 78 /min [place] Tebid blood pressure, diastolic 79 mm[Hg] Vi ctoria Tebid blood pressure, systolic 110 mm[Hg] Fadi richard Tebid pulse rate #2 77 [place] Tebid blood pressure, dey tolic, second observation 66 mm[Hg] Radha Tebid blood pressure, syst olic, second observation 103 mm[Hg] Radha Tebid oxygen saturation, oximetry 98 % [place] Tebid pulse rate 70 /min [place] Tebid blood pressure, diastolic 78 mm[Hg] Vi ctoria Tebid blood pressure, systolic 123 mm[Hg] Fadi richard Tebid pulse rate #2 71 Radha Tebid blood pressure, dey tolic, second observation 77 mm[Hg] Radha Tebid blood pressure, syst olic, second observation 143 mm[Hg] Radha Tebid oxygen saturation, oximetry 98 % Radha Tebid pulse rate 76 /min [place] Tebid blood pressure, diastolic 82 mm[Hg] Vi ctoria Tebid blood pressure, systolic 152 mm[Hg] Fadi richard Tebid pulse rate #2 67 [place] Tebid blood pressure, dey tolic, second observation 62 mm[Hg] Radha blood pressure, syst olic, second observation 100 mm[Hg] Radha oxygen saturation, oximetry 98 % Radha pulse rate 75 /min Radha blood pressure, diastolic 82 mm[Hg] Vi ctoria Tebid blood pressure, systolic 156 mm[Hg] Fadi richard Ted pulse rate #2 80 [place] blood pressure, dey tolic, second observation 75 mm[Hg] Radha blood pressure, syst olic, second observation 118 mm[Hg] Radha oxygen saturation, oximetry 98 % Radha pulse rate 85 /min Radha blood pressure, diastolic 79 mm[Hg] Vi vaoria Ted blood pressure, systolic 168 mm[Hg] Fadi richard Ted pulse rate #2 78 [place] blood pressure, dey tolic, second observation 68 mm[Hg] Radha blood pressure, syst olic, second observation 107 mm[Hg] Radha oxygen saturation, oximetry 98 % Radha pulse rate 76 /min Radha blood pressure, diastolic 71 mm[Hg] Vi ctoria Ted blood pressure, systolic 116 mm[Hg] Fadi richard Ted pulse rate #2 76 [place] blood pressure, dey tolic, second observation 66 mm[Hg] Radha d blood pressure, syst olic, second observation 111 mm[Hg] Radha d oxygen saturation, oximetry 98 % Radha pulse rate 77 /min [place] blood pressure, diastolic 76 mm[Hg] Vi ctoria [...] 0-149 High cholesterol, serum 149 mg/dL [facility] [phone]/04/ 08 calcium, serum 9.1 mg/dL [facility] 8.6-10.2 carbon dioxide, venous blood 26 mmol/L [facility] 20-29 chloride, serum 103 mmol/L [facility] 96-106 potassium, serum 4.0 mmol/L [facility] 3.5-5.2 sodium, serum 143 mmol/L [facility] [phone]/04/ 08 urea nitrogen/creatinine ratio, serum 16 [facility] [...] Not Estab. platelet count 206 X10E3/UL [facility] [phone]/04/ 08 red blood cell distribution width 12.5 [...] cell distribution width, size [facility] [facility] immature granulocytes, percentage of total cells, blood 0.2 % [facility] nucleated red blood cells as percent of blood leukocytes 0.4 % [facility] - red blood cell (erythrocyte) count, per high power field 0.0 10*3/UL [facility] - eosinophils as percent of blood leukocytes 3.0 % [facility] neutrophils as percent of blood [...] - 3.9 mean platelet volume 10.0 (?) [facility] count 245.0 THOUSAND/ [...] 10*3/mm3 Gage Gonsalez hematocrit, blood 43.7 % [facility] international normalized ratio (INR) 1.0 [facility] alanine aminotransferase (SGPT), serum 32 1/L [facility] aspartate aminotransferase (SGOT), serum 20 1/L [facility] creatinine, serum 1.09 mg/dL [facility] potassium, serum 4.4 mmol/L [facility] sodium, serum 141 mmol/L [facility] LDL cholesterol, serum 83 mg/dL [facility] cholesterol, serum 165 mg/dL [facility] prothrombin time (patient) 10.6 s [facility] international normalized ratio (INR) 1.0 [facility] creatinine, serum 1.24 mg/dL [facility] urea nitrogen, blood 20 mg/dL [facility] carbon dioxide, serum, total 26 mmol/L [facility] chloride, serum 104 mmol/L [facility] potassium, serum 4.5 mmol/L [facility] sodium, serum 140 mmol/L [facility] platelet count 251 10*3/uL [facility] hematocrit, blood 42.8 % [facility] hemoglobin, blood 14.1 g/dL [facility] erythrocyte (RBC) count 4.50 10*6/mm3 [facility] leukocyte count, blood 7.2 10*3/mm3 [facility] anion gap, serum 10.3 [facility] estimated glomerular filtration rate 58 mL/min [facility] blood glucose, fasting 99 mg/dL [facility] calcium, serum 9.0 mg/dL [facility] creatinine, serum 1.28 mg/dL [facility] urea nitrogen, blood 26.5 mg/dL [facility] carbon dioxide, serum, total 27 mmol/L [facility] chloride, serum 104 mmol/L [facility] potassium, serum 4.3 mmol/L [facility] sodium, serum 137 mmol/L [facility] platelet count 239 10*3/uL [facility] red blood cell distribution width 13.4 % [facility] mean corpuscular hemoglobin concentration, RBC 33.4 g/dL [facility] mean corpuscular hemoglobin, RBC 32.3 pg [facility] mean corpuscular volume, RBC 96.8 fL [facility] hematocrit, blood 42.5 % [facility] hemoglobin, blood 14.2 g/dL [facility] erythrocyte (RBC) count 4.39 10*6/mm3 [facility] monocytes as percent of blood leukocytes 8.7 % [facility] lymphocytes as percent of blood leukocytes 23.0 % [facility] leukocyte count, blood 7.1 10*3/mm3 [facility] international normalized ratio (INR) 1.4 [facility] prothrombin time (patient) 13.8 s [facility] very low density lipoproteins 33 mg/dL [facility] triglyceride, serum, fasting 163 mg/dL [facility] HDL cholesterol, serum 39 mg/dL [facility] LDL cholesterol, serum 131 mg/dL [facility] cholesterol, serum 203 mg/dL [facility] thyroid stimulating hormone, serum 1.720 u[IU]/mL [facility] albumin/globulin ratio, serum 1.5 [facility] protein, total, serum 7.2 g/dL [facility] albumin, serum 4.3 g/dL [facility] bilirubin, serum, total 0.3 mg/dL [facility] alkaline phosphatase, serum 88 1/L [facility] alanine aminotransferase (SGPT), serum 18 1/L [facility] aspartate aminotransferase (SGOT), serum 16 1/L [facility] calcium, serum 9.6 mg/dL [facility] blood glucose, fasting 82 mg/dL [facility] creatinine, serum 1.25 mg/dL [facility] urea nitrogen, blood 19 mg/dL [facility] carbon dioxide, serum, total 23 mmol/L [facility] chloride, serum 103 mmol/L [facility] potassium, serum 4.1 mmol/L [facility] sodium, serum 141 mmol/L [facility] platelet count 255 10*3/uL [facility] red blood cell distribution width 14.3 % [facility] mean corpuscular hemoglobin concentration, RBC 33.7 g/dL [facility] mean corpuscular hemoglobin, RBC 31.6 pg [facility] mean corpuscular volume, RBC 94 fL [facility] hematocrit, blood 41.9 % [facility] hemoglobin, blood 14.1 g/dL [facility] erythrocyte (RBC) count 4.46 10*6/mm3 [facility] monocyte count, blood 0.6 10*3/mm3 [facility] lymphocyte count, blood 1.8 10*3/mm3 [facility] monocytes as percent of blood leukocytes 8 % [facility] lymphocytes as percent of blood leukocytes 23 % [facility] leukocyte count, blood 7.5 10*3/mm3 [facility] prostate specific antigen 3.63 ng/mL [facility] HISTORY OF MEDICATION USE Medication Status [...] f requency, days per week yes Leslie Crosby caffeine use, averag e drinks per day 3 /d Leslie Raul passive cigarette sm hardik exposure yes Leslie Crosby smoking, year quit 1998 Leslie Raul number [...] passive cigarette sm hardik exposure yes Malgorzata [facility] smoking, year quit 1998 [facility] number of years as a smoker 10 years or m [facility] Malgorzata Faustin smoking history, tot al pack/year 50 Malgorzata Block cigarette use yes [facility] smoking status Former smoker Malgorzata [...] yes Nate Thomas smoking status Former smoker [facility] douglas social history reviewed E&M revi [...] Areli Thomas alcohol use no Nate Alvarado giovannikatherni caffeine use, averag e drinks per day [...] alcohol use, average drinks per day none Naet Thomas alcohol use, type Beer, very seldom [...] h [place] smoking history, tot al pack/year [id number] Griffin Vishalacoarya smoking, year quit 1998 [facility] horn social history reviewed E&M reviewed Yaw Thacker [facility] sm hardik exposure yes Griffin Vishalaco smoking history, tot al pack/year 1 pack per day for 54 years Griffin [facility] smoking, year quit 2001 Griffin horn smoking [...] Date Observation Value Provider energy level yes [place] Tebid energy level yes [place] Tebid energy level yes [place] Tebid energy level yes [place] Tebid energy level yes [place] Tebid energy level yes [place] [employer] energy level yes [place] [employer] energy level yes [place] [employer] energy level yes [place] [employer] energy level yes [place] [employer] energy level yes [place] [employer] energy level yes [place] [employer] energy level yes [place] [employer] energy level yes [place] [employer] energy level yes [place] [employer] energy level yes [place] [employer] energy level yes [place] [employer] energy level yes [place] [employer] energy level yes [place] [employer] energy level yes [place] [employer] energy level yes [place] [employer] energy [...] Payer name Policy type / Coverage type [place] [employer] party ID [facility] MEDICARE ADVANTAGE (PPO) Other [id number] ADVANCE DIRECTIVES Name Date DISCUSSED - NO DECISION MADE TREATMENT PLAN Date Name Performer [id number],S, R epeat CTA scan in August. To discuss with PCP. Khushi Orlando NP [id number],S, N o dizziness. Continues on plavix. Khushi Orlando NP [id number],S, U nchanged. Khushi Orlando NP [id number],S, H is updated medication list for this problem includes: Atorvastatin 20 Mg Tablet (Atorvastatin) ..... Take 1 tablet by mouth every night Khushi Orlando NP [id number],S, N o chest pain. Khushi Orlando NP [id number],S, Yaw Thacker MD [id number],W,H e does not wish to do a PFT or ct so will refer him to the lung doctor Dr KELLOGG pulmonary consult. Yaw Thacker MD [id number],S, Yaw Thacker MD Cardiology: R epeat CTA scan in August. To discuss with PCP. Khushi Olrando NP Cardiology: N o dizziness. Continues on [...] Thacker MD Cardiology:Recently in the hospital at [facility] with shortness of breath. Will obtain his [...] do not think this is progression of [place] CAD. Yaw Thacker MD Cardiology Follow up [...] severe Diffusion Defect Will refer patient to house principal. Yaw Thacker MD fu:PFT (01/10/2015) P ulmonary [...] 57%. Will schedule L/R cardiac cath at [facility] Yaw Thacker MD fu:Will do stress adenosine [...] (Atorvastatin calcium) ..... At Imdur 30 Mg [id number] (Isosorbide mononitrate) ..... One tablet daily Propranolol [...] calcium) ..... At hs Imdur 30 Mg Ha60d-oai (Isosorbide mononitrate) ..... One tablet daily Aspirin 81 Mg Tabs (Aspirin) ..... 1 tablet by mouth daily Orders: Vanna LAM (CPT-[id number]) Yaw Thacker MD : T he following medications were removed from the medication list: Propranolol Hcl 20 Mg Tabs (Propranolol hcl) ..... 1 tablet by mouth twice daily His updated medication list for this problem includes: Plavix 75 Mg Tabs (Clopidogrel bisulfate) ..... 1 tab by mouth daily Atorvastatin Calcium 20 Mg Tabs (Atorvastatin calcium) ..... At hs Imdur 30 Mg Ks40l-dir (Isosorbide mononitrate) ..... One tablet daily Aspirin [...] scintigraphic evidence of myocardial ischemia or scar. Ywa Thacker MD Follow-up Yaw Thacker MD Follow-up [...] calcium) ..... At hs Imdur 30 Mg Hz10d-mlc (Isosorbide mononitrate) ..... One tablet daily Propranolol [...] calcium) ..... At hs Imdur 30 Mg Sj95s-lsw (Isosorbide mononitrate) ..... 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 At Orders: C omplete Echo ([id number]) Yaw Thacker MD Follow-up, c/o chest pain and sh ortness of breath Yaw Thacker MD Follow-up, c/o chest pain and shortness of breath: H is updated medication list for this problem includes: Plavix 75 Mg Tabs (Clopidogrel bisulfate) ..... 1 tab by mouth daily Orders: E KG (CPT-[id number]) Yaw Thacker MD Follow-up, c/o chest pain [...] and thus i will do this at [facility] which has that facility Yaw Thacker MD [...] EF 78% which is within normal limits. [facility] (10/14/2010) C ardiac Cath: Normal left ventricular function. Normal left ventricular end diastolic pressure. 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 EF 60%. [facility] (11/05/2010) C ardiac Cath Comments: Successful stenting of the proximal RCA with a 3.5 x 15 Vision stent. [facility] (11/05/2010) C HOL: 203 (09/23/2010) LDL: 131 [...] MR. Mild TR. EF 64%. RVSP 23mmg. [facility] (10/14/2010) Yaw Thacker MD routine Yaw Thacker [...] EF 78% which is within normal limits. [facility] (10/14/2010) C ardiac Cath: Normal left ventricular function. Normal left ventricular end diastolic pressure. 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 EF 60%. [facility] (11/05/2010) C ardiac Cath Comments: Successful stenting of the proximal RCA with a 3.5 x 15 Vision stent. [facility] (11/05/2010) h e will need another stress test but will do an adenosine myoview Yaw Thacker MD follow up:check the free testosterone and vit d levels. O rders: V ITAMIN D, 25-HYDROXY, LC/MS/MS (61531) O ther ([id number]) Yaw Thacker MD follow up: H is [...] RBC, INDIC ES, WBC, PLT) DLCO - 55624 FRC - 04601 FVC - 83540 STR - Adenosine Complete Echo Full PFT [...] completed EKG Yaw Thacker MD completed SNOMED-CT: 42353604 Physical Exam, Performed: Pulse Exam of Foot Yaw Thacker MD completed EKG Yaw Thacker MD completed SNOMED-CT: 666894518 887950 Current Medications Documented Yaw Thacker MD completed SNOMED-CT: 00899316 Physical Exam, Performed: Pulse Exam of Foot Yaw Thacker MD completed SNOMED-CT: 078795872 237764 Current Medications Documented Yaw Thacker MD completed SNOMED-CT: 75558693 Physical Exam, Performed: Pulse Exam of Foot Yaw Thacker MD completed SNOMED-CT: 144982406 158518 Current Medications Documented Yaw Thacker MD completed SNOMED-CT: 90039791 Physical Exam, Performed: Pulse Exam of Foot Yaw Thacker MD completed SNOMED-CT: 598072757 633353 Current Medications Documented Yaw Thacker MD completed Stress EKG Jeremiah Serrano MD completed Regadenoson, 4 units Michael stoner MD completed Cardiolite, 2 units Michael izquierdo MD completed SPECT Images Michael Knowles MD completed SNOMED-CT: 29736659 Physical Exam, Performed: Pulse Exam of Foot Yaw Thacker MD completed EKG Yaw Thacker MD completed SNOMED-CT: 690150675 194276 Current Medications Documented Yaw Thacker MD completed SNOMED-CT: 19433194 Physical Exam, Performed: Pulse Exam of Foot Yaw Thacker MD completed SNOMED-CT: 222335930 552137 Current Medications Documented Yaw Thacker MD completed SNOMED-CT: 67863613 Physical Exam, Performed: Pulse Exam of Foot Yaw Thacker MD completed SNOMED-CT: 068799493 142462 Current Medications Documented Yaw Thacker MD completed BLOOD COUNT HEMOGLOBIN Yaw Thacker MD completed FVC - 65656 Yaw Thacker MD complete d FRC - 40601 Yaw Thacker MD complete d DLCO - 41553 Yaw Thacker MD complet ed EKG Yaw Thacker MD completed DLCO - 13147 Chinmay Bell completed SVC - 54385 Chinmay Bell completed FVC - 02215 Chinmay Blel completed EKG Yaw Thacker MD completed EKG Yaw Thacker MD completed EKG Yaw Thacker MD completed EKG Yaw Thacker MD completed EKG Yaw Thacker MD completed
--- OUTSIDE RECORDS SUMMARY | 2024-06-28 10:35 | XMS_ITS | Clinical Summary ---
Author Organization [facility] Address [facility] [facility] [place], [place] [id number] [place] [id number] Care Team Providers Care Bull Driver Name Role Phone Unavailable Primary Care Provider [...]
--- OUTSIDE RECORDS SUMMARY | 2024-06-28 10:35 | XMS_ITS | Referral Summary ---
Author Organization Address [address] [place] [id number] Care Team Providers Care Water Fabricator Operator Name Role Phone Angelo Mccloud MD Primary Care Provider [phone] Allergies No known active allergies Medications budesonide-formo [...] (12/16/2020): Added automatically from request for surgery [id number] CAD (coronary artery disease) 09/22/2020 Overview (09/22/2020): Added automatically from request for surgery [id number] SOB (shortness of breath) 09/22/2020 Overview (09/22/2020): Added automatically from request for surgery [id number] Social History Tobacco Use Types Packs/Day Years [...] on file 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 Gender Identity Not on file Sexual Orientation [...] on file Medical Devices Implanted Type Area Slurry Blender Device Identifier Shelf Expiration Date Model / Serial / Lot [employer] X [id number] Resolute [place] 3.5mm 2.1-2.7fr 26mm 140cm Rapid Exchange - [id number] Implanted:Qty: 1 on 09/29/2020 by Yaw Thacker MD at [employer] [id number] / / Explanted Type Area Slurry Blender Device Identifier Shelf Expiration Date Model / Serial / Lot [employer] [id number] Inlay [place] 7fr 28cm Pusher Fluoro Marker Atraumatic Insertion Latex Free - [id number] Implanted:Qty: 1 on 01/01/2021 by Martin Alvarado MD at Explanted:Qty: 1 on 01/16/2021 Left: [employer]re[employer] 06/26/2025 [id number] / / [id number] Insurance MEDICARE [facility] Address: [place] [id number] [place] [id number] MEDICARE [facility]IC[facility] Address: [place] [id number] [place] [id number] MEDICARE [facility] Address: [address] [address] [place] [address] Advance Directives For more information, please contact: [phone] * Full Code (Latest Code Status on File) Date Activated Date Inactivated Comments 09/29/2020 10:32 AM 10/01/2020 6:10 PM Care Teams Water Fabricator Operator Relationship Specialty Start Date End Date Angelo Mccloud MD [address] [place] [address] PCP - General 10/01/20
[2024-06-28 11:31] VITALS: BP 119/70; PULSE 65; RESP 18; O2SAT 94
[2024-06-28 12:29] VITALS: BP 134/76; PULSE 67; RESP 16; TEMP 36.6; O2SAT 97
== END 2024-06-28 12:31 | disposition home or self-care (01) ==
PROVIDERS: Emergency Provider Emergency Medicine; PCP Internal Medicine
DX: K59.00 Constipation, unspecified (principal); I73.9 Peripheral vascular disease, unspecified; J43.9 Emphysema, unspecified; H54.8 Legal blindness, as defined in USA; H40.9 Unspecified glaucoma; G47.30 Sleep apnea, unspecified; Z86.2 Personal history of diseases of the blood and blood-forming organs and certain disorders involving the immune mechanism; Z87.891 Personal history of nicotine dependence; K44.9 Diaphragmatic hernia without obstruction or gangrene; K40.90 Unilateral inguinal hernia, without obstruction or gangrene, not specified as recurrent; J84.9 Interstitial pulmonary disease, unspecified; I70.90 Unspecified atherosclerosis; Z79.82 Long term (current) use of aspirin; Z79.899 Other long term (current) drug therapy
CPT/HCPCS: 36415; 74177; 80053; 85025; 85610; 85730; 99284; Q9967

== ENCOUNTER 2024-10-12 16:24 | Inpatient (IN) | payer MEDICARE, SELFPAY ==
[2024-10-12] VITALS (8 sets, daily range): BP systolic 81–133; BP diastolic 50–66; PULSE 70–79; RESP 16–26; TEMP 36.3–38.1; O2SAT 92–97; BMI 23.3
--- NOTE | ~2024-10-12 | XR_ITS ---
XR chest 2V Ordering provider: Toni You MD History: 88 years Male with . SOB . Comparison: May 24, 2024 FINDINGS: MEDIASTINUM: The cardiac silhouette is not enlarged. Congested both joy. LUNGS: No , effusions or pneumothorax. Opacification the left lung base is seen suggestive of atelect asis versus pneumonia. Opacities in the left mid zone are unchanged. OTHER: No free air under the diaphragm. IMPRESSION: Left basilar atelectasis versus pneumonia. Opacities in the left mid zone are unchanged. Further eval uation to exclude nodules is advised. Reviewed, dictated and finalized at location A. IMPRESSION: Left basilar atelectasis versus pneumonia. Opacities in the left mid zone are u nchanged. Further evaluation to exclude nodules is advised.
--- NOTE | ~2024-10-12 | CT_ITS ---
EXAMINATION: CT diagnostic chest wo con DATE: 10/13/2024 12:36 INDICATION: abnormal chest x-ray TECHNIQUE: Computed tomography (CT) of the chest was performed without intravenous contrast. Addition al 3D reconstructions utilizing coronal maximum intensity projection (MIP) were performed. Automated exposure control and iterative reconstruction technique were employed. The dose-length product was 23 7.77 mGy-cm. COMPARISON: Chest CT dated 05/29/2024 FINDINGS: Mild to moderate emphysema with chronic right apical pleural-parenchymal scarring No change in a unil ateral calcified left-sided pleural plaques, likely sequela of prior exudative effusion. There is chr onic irregular septal line thickening with peripheral and lower lung predominance consistent with chr onic interstitial lung disease. No significant interval change in numerous scattered regions of small pulmonary nodules, many with tree-in-bud pattern likely sequela of chronic infection. No new lung di sease to suggest pneumonia. No pulmonary edema or pleural effusion. Heart size is normal. Atheroscler otic coronary artery calcific lesion. No pericardial effusion. Thoracic aorta is normal in caliber. N o pathologically enlarged thoracic lymphadenopathy. Small sliding-type hiatal hernia. Cholecystectomy clips the gallbladder fossa with dropped clip along the posterior right hepatic lobe. Multiple splen ic calcifications consistent with old granulomatous disease. 6 mm stone at the upper pole of the left kidney. 1 cm cyst at the upper pole the left kidney. Thoracic spondylosis. Chronic L1 compression fr acture with one third anterior vertebral body height loss. Severe lower cervical spondylosis with C5- C6 anterior spinal fusion. IMPRESSION: 1. Stable appearance of chronic lung disease including emphysema, unilateral calcified left-sided ple ural plaques, peripheral lower lung predominant chronic interstitial lung disease and scattered regio ns of multiple vessels and 4 mm pulmonary nodules, many with tree-in-bud pattern consistent with sequ jenni of chronic infection. Reviewed, dictated and finalized at location A. IMPRESSION: 1. Stable appearance of chronic lung disease including emphysema, unilateral ca lcified left-sided pleural plaques, peripheral lower lung predominant chronic i nterstitial lung disease and scattered regions of multiple vessels and 4 mm pul monary nodules, many with tree-in-bud pattern consistent with sequela of chroni c infection.
--- OUTSIDE RECORDS SUMMARY | 2024-10-12 16:31 | XMS_ITS | Clinical Summary ---
Author Organization [facility] Address [facility] [place] [address] Care Team Providers Care Payroll And Benefits Manager Name Role Phone Unavailable Primary Care Provider [...] Td Vaccines ( 1 - Tdap) 10/31/1954 Pneumococcal Vaccine: 50+ Ye ars (1 of 1 - PCV) 10/31/1985 Zoster Vaccines (1 of 2) 10/31/1985 RSV Immunization or 60+ Years (1 - 1-dose 75+ series) 10/31/2010 COVID-19 Vaccine ( - 2023-2 5 season) 2024 Meningococcal B Vaccine Aged Out No l onger eligible based on patient's age to complete this topic Meningococcal Vaccine Aged Out No amber isaiah eligible based on patient's age to complete this topic RSV Immunizations Under 20 Months Aged Out No longer eligible based on patient's age to complete this topic
--- OUTSIDE RECORDS SUMMARY | 2024-10-12 16:31 | XMS_ITS | Referral Summary ---
Author Organization [facility] Address [address] [place] [address] Care Team Providers Care French Instructor Name Role Phone Angelo Mccloud MD Primary Care Provider [phone] Allergies No known active allergies Medications budesonide-formo [...] (12/16/2020): Added automatically from request for surgery [id number] CAD (coronary artery disease) 09/22/2020 Overview (09/22/2020): Added automatically from request for surgery [id number] SOB (shortness of breath) 09/22/2020 Overview (09/22/2020): Added automatically from request for surgery [id number] Social History Tobacco Use Types Packs/Day Years [...] on file 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 Gender Identity Not on file Sexual Orientation Not on file Last Filed Vital Signs Vital Sign Reading Time Taken Comments Blood Pressure 118/60 12/13/2023 2:30 PM CDT Pulse 70 12/13/2023 2:30 PM CDT Temperature 38.6 C (101.5 F) 01/17/2021 8:49 PM CDT Respiratory Rate 18 01/17/2021 8:49 PM CDT Oxygen Saturation 95% 12/13/2023 2:30 PM CDT Inhaled Oxygen Concentration - - Weight 81.6 kg (180 lb) 12/13/2023 2:30 PM CDT Height 180.3 cm (5' 11) 12/13/2023 2:30 PM CDT Body Mass Index 25.1 12/13/2023 2:30 PM CDT Plan of Treatment Not on file Medical Devices Implanted Type Area Shaving Machine Operator Device Identifier Shelf Expiration Date Model / Serial / Lot [employer] X [id number] Resolute [place] 3.5mm 2.1-2.7fr 26mm 140cm Rapid Exchange - [id number] Implanted:Qty: 1 on 09/29/2020 by Yaw Thacker MD at [facility] [employer] [id number] / / Explanted Type Area Shaving Machine Operator Device Identifier Shelf Expiration Date Model / Serial / Lot [employer] [id number] Inlay Leaf 7fr 28cm Pusher Fluoro Marker Atraumatic Insertion Latex Free - [id number] Implanted:Qty: 1 on 01/01/2021 by Martin Alvarado MD at [facility] Explanted:Qty: 1 on 01/16/2021 Left: [employer] 06/26/2025 [id number] / / [id number] Insurance Advance Directives For more information, please contact: [phone] * Full Code (Latest Code Status on File) Date Activated Date Inactivated Comments 09/29/2020 10:32 AM 10/01/2020 6:10 PM Care Teams French Instructor Relationship Specialty Start Date End Date Angelo Mccloud MD [address] [place] [address] PCP - General 10/01/20
--- OUTSIDE RECORDS SUMMARY | 2024-10-12 16:31 | XMS_ITS | CONTINUITY OF CARE DOCUMENT ---
Author Name isaiah, diegoser Address Unknown Organization [facility] Address [address] [address] [place] [address] Phone [phone] Care Team Providers Care Grainer Machine Name Role Phone Jeremiah Serrano MD Unavailable [phone] Irwin Padilla MD Unavailable Irwin Padilla MD [...] s/p L CEA active Yaw Thacker MD Lung nodules active Khushi Orlando MANAGER OF COMPLIANCE Coronavirus infection, 05/2021 active Khushi Orlando MANAGER OF COMPLIANCE ENCOUNTERS Date Type Provider Location Encounter Diag nosis - In-person encounter Office Visit Yaw Thacker MD [facility] Lung nodulesCoronavirus infection, 05/2021 - In-person encounter Office Visit Yaw Thacker MD [facility] - In-person encounter Office Visit Yaw Thacker MD [facility] - In-person encounter Office Visit Yaw Thacker MD [facility] - In-person encounter Office Visit Yaw Thacker MD [facility] - In-person encounter Office Visit Yaw Thacker MD [facility] Carotid artery disease s/p L CEA - In-person encounter Office Visit Yaw Thacker MD [facility] CAD-09/08 CAROTID NEGPreoperative cardiovascular examinationClaudication, intermittent - In-person encounter Office Visit Yaw Thacker MD [facility] - In-person encounter Office Visit Yaw Thacker MD [facility] Dizziness - In-person encounter Office Visit Yaw Thacker MD [facility] - In-person encounter Office Visit Yaw Thacker MD [facility] - In-person encounter Office Visit Yaw Thacker MD [facility] - In-person encounter Office Visit Yaw Thacker MD [facility] - In-person encounter Office Visit Yaw Thacker MD [facility] Hyperlipidemia - In-person encounter Office Visit Yaw Thacker MD [facility] - In-person encounter Office Visit Yaw Thacker MD [facility] Leg numbness - In-person encounter Office Visit Yaw Thacker MD [facility] - In-person encounter Office Visit Yaw Thacker MD [facility] Office - In-person encounter Office Visit Yaw Thacker MD [facility] SHORTNESS OF BREATH - In-person encounter Office Visit Yaw Thacker MD [facility] - In-person encounter Office Visit Yaw Thacker MD [facility] - In-person encounter Office Visit Yaw Thacker MD [facility] - In-person encounter Office Visit Yaw Thacker MD [facility] - In-person encounter Office Visit Yaw Thacker MD [facility] CAD-5/12 STENT XIENCE 1 DIAG--6/ VISION STENT RCA - In-person encounter Office Visit Yaw Thacker MD [facility] - In-person encounter Office Visit Yaw Thacker MD [facility] CAD-5/12 STENT XIENCE 1 DIAG--6/11 VISION STENT RCA - In-person encounter Office Visit Yaw Thacker MD [facility] - In-person encounter Office Visit Yaw Thacker MD [facility] CAD-5/12 STENT XIENCE 1 DIAG--6/11 VISION STENT RCA - In-person encounter Office Visit Yaw Thacker MD [facility] CAD-5/12 STENT XIENCE 1 DIAG--6/ VISION STENT RCA - In-person encounter Office Visit Yaw Thacker MD [facility] VITAL SIGNS Date Observation Value Provider Body Mass Index (Ratio) 25.11 kg/m2 Johny Thacker MD blood pressure, diastolic 88 mm[Hg] Ca therine Gresham blood pressure, systolic 129 mm[Hg] Cat herine Raul blood pressure, cuff size regular Ca therine Gresham oxygen saturation, oximetry 92 % Leslie Raul respiratory rate E&M 14 /min Catheri ne Gresham pulse rate 72 /min Leslie Raul weight E&M 175 [lb_av] Leslie Raul height E&M 70 [in_i] Leslie Raul Body [...] paolavladislavjuvencio pulse rate 78 /min Danielle Ring [facility] weight E&M 188 [lb_av] Danielle Ring [facility] height E&M 70 [in_i] Danielle Ring [facility] Body Mass Index (Ratio) 27.55 kg/m2 Johny [...] Robert Thomas blood pressure, systolic 122 mm[Hg] Valentian Thomas oxygen saturation, oximetry 94 % Nate [...] [place] enson blood pressure, diastolic 76 mm[Hg] Ct deloris Bryson blood pressure, systolic 135 mm[Hg] [...] pick[place] blood pressure, systolic 122 mm[Hg] [facility] sabine Dale pulse rate #2 74 [facility] blood pressure, dey tolic, second observation 71 mm[Hg] [facility] blood pressure, syst olic, second observation 108 mm[Hg] [facility] oxygen saturation, oximetry 97 % [facility] pulse rate 77 /min [facility] blood pressure, diastolic 71 mm[Hg] Vi ctoria [facility] blood pressure, systolic 133 mm[Hg] Fadi richard [facility] pulse rate #2 69 [facility] blood pressure, dey tolic, second observation 66 mm[Hg] [facility] blood pressure, syst olic, second observation 108 mm[Hg] [facility] oxygen saturation, oximetry 97 % [facility] pulse rate 77 /min [facility] blood pressure, diastolic 81 mm[Hg] Vi ctoria Tebid blood pressure, systolic 117 mm[Hg] Fadi richard T[facility]id pulse rate #2 69 [place] bid blood pressure, dey tolic, second observation 93 mm[Hg] Radha Tebid blood pressure, syst olic, second observation 152 mm[Hg] Radha Tebid oxygen saturation, oximetry 97 % [place] bid pulse rate 75 /min [place] d blood pressure, diastolic 97 mm[Hg] Vi ctoria Tebid blood pressure, systolic 168 mm[Hg] Fadi richard Tebid pulse rate #2 57 [place] d blood pressure, dey tolic, second observation 70 mm[Hg] [facility] 133 mm[Hg] [place] Tebid oxygen saturation, oximetry 97 % [place] d pulse rate 55 /min [place] Tebid blood pressure, diastolic 87 mm[Hg] Vi ctoria Tebid blood pressure, systolic 126 mm[Hg] Fadi richard Tebid pulse rate #2 73 [place] d blood pressure, dey tolic, second observation 73 mm[Hg] [facility] syst [facility], second observation 118 mm[Hg] [place] Tebid oxygen saturation, oximetry 97 % [place] Ted pulse rate 56 /min [place] Tebid blood pressure, diastolic 68 mm[Hg] Vi ctoria Tebid blood pressure, systolic 133 mm[Hg] Fadi richard Tebid pulse rate #2 72 [facility], dey tolic, second observation 71 mm[Hg] [place] Tebid blood pressure, syst olic, second observation 124 mm[Hg] [place] Tebid oxygen saturation, oximetry 97 % [place] Tebid pulse rate 78 /min Radha Tebid blood pressure, diastolic 95 mm[Hg] Vi ctoria Tebid blood pressure, systolic 153 mm[Hg] Fadi richard Tebid pulse rate #2 75 Radha Tebid blood pressure, dey tolic, second observation 66 mm[Hg] Radha Tebid blood pressure, syst olic, second observation 130 mm[Hg] Radha Tebid oxygen saturation, oximetry 97 % Radha Tebid pulse rate 75 /min [place] Tebid blood pressure, diastolic 79 mm[Hg] Vi ctoria Tebid blood pressure, systolic 143 mm[Hg] Fadi richard Tebid pulse rate #2 87 [place] Tebid blood pressure, dey tolic, second observation 92 mm[Hg] Radha Tebid blood pressure, syst olic, second observation 109 mm[Hg] Radha Tebid oxygen saturation, oximetry 97 % Radha Tebid pulse rate 88 /min [place] Tebid blood pressure, diastolic 62 mm[Hg] Vi ctoria Tebid blood pressure, systolic 119 mm[Hg] Fadi richard Tebid pulse rate #2 71 [place] Tebid blood pressure, dey tolic, second observation 79 mm[Hg] Radha Tebid blood pressure, syst olic, second observation 128 mm[Hg] Radha Tebid oxygen saturation, oximetry 97 % [place] Tebid pulse rate 77 /min [place] Tebid blood pressure, diastolic 100 mm[Hg] Vi ctoria Tebid blood pressure, systolic 134 mm[Hg] Fadi richard Tebid pulse rate #2 77 [place] Tebid blood pressure, dey tolic, second observation 72 mm[Hg] Ardha Tebid blood pressure, syst olic, second observation [...] Fadi richard Tebid pulse rate #2 78 [place] Tebid blood pressure, dey tolic, second observation 76 mm[Hg] Radha Tebid blood pressure, syst olic, second observation 126 mm[Hg] Radha Tebid oxygen saturation, oximetry 97 % Radha Tebid pulse rate 68 /min [place] Tebid blood pressure, diastolic 82 mm[Hg] Vi [...] Fadi richard Tebid pulse rate #2 68 [place] Tebid blood pressure, dey tolic, second observation 76 mm[Hg] Radha d blood pressure, syst olic, second observation 128 mm[Hg] Radha d oxygen saturation, oximetry 97 % Radha d pulse rate 71 /min Radha d blood pressure, diastolic 79 mm[Hg] Vi ctoria Tebid blood pressure, systolic 132 mm[Hg] Fadi richard Tebid pulse rate #2 69 [place] blood pressure, dey tolic, second observation 59 mm[Hg] Radha blood pressure, syst olic, second observation 112 mm[Hg] Radha d oxygen saturation, oximetry 97 % Radha pulse rate 75 /min Radha blood pressure, diastolic 66 mm[Hg] Vi [facility] Ted blood pressure, systolic 124 mm[Hg] Fadi richard Ted pulse rate #2 61 [place] blood pressure, dey tolic, second observation 65 mm[Hg] Radha d blood pressure, syst olic, second observation 124 mm[Hg] Radha d oxygen saturation, oximetry 97 % Radha pulse rate 66 /min Radha blood pressure, diastolic 72 mm[Hg] Vi ctoria Tebid blood pressure, systolic 133 mm[Hg] Fadi richard Tebid pulse rate #2 79 [place] d blood pressure, dey tolic, second observation 77 mm[Hg] Radha d blood pressure, syst olic, second observation 124 mm[Hg] Radha d oxygen saturation, oximetry 97 % Radha d pulse rate 72 /min [place] d blood pressure, diastolic 74 mm[Hg] Vi ctoria Tebid blood pressure, systolic 141 mm[Hg] Fadi richard Tebid pulse rate #2 71 Radha Tebid blood pressure, dey tolic, second observation 66 mm[Hg] Radha Tebid blood pressure, syst olic, second observation 107 mm[Hg] Radha Tebid oxygen saturation, oximetry 97 % Radha Tebid pulse rate 70 /min [place] Tebid blood pressure, diastolic 78 mm[Hg] Vi ctoria Tebid blood pressure, systolic 137 mm[Hg] Fadi richard Tebid pulse rate #2 75 [facility], dey tolic, second observation 86 mm[Hg] Radha Tebid blood pressure, syst olic, second observation 138 mm[Hg] [facility], oximetry 97 % [facility] pulse [facility] 79 /min [facility], diastolic 76 mm[Hg] Vi ctoria Tebid blood pressure, systolic 130 mm[Hg] [facility]2 71 [place] Tebid blood pressure, dey tolic, second observation 71 mm[Hg] Radha Tebid blood pressure, syst olic, second observation 101 mm[Hg] Radha Tebid oxygen saturation, oximetry 97 % [facility] 68 /min [place] Tebid blood pressure, diastolic 76 mm[Hg] Vi ctoria Tebid blood pressure, systolic 139 mm[Hg] Fadi richard Tebid pulse rate #2 94 [facility], dey tolic, second observation 57 mm[Hg] [place] Tebid blood pressure, syst olic, second observation 114 mm[Hg] [place] Tebid oxygen saturation, oximetry 97 % [facility] 96 /min [facility], diastolic 72 mm[Hg] Vi ctoria Tebid blood pressure, systolic 116 mm[Hg] Fadi richard Tebid pulse rate #2 76 [facility], dey tolic, second observation 84 mm[Hg] Radha bid blood pressure, syst olic, second observation 122 mm[Hg] [facility], oximetry 98 % [facility] pulse rate 71 /min [facility], diastolic 79 mm[Hg] Vi ctoria Tebid blood pressure, systolic 134 mm[Hg] Fadi richard Tebid pulse rate #2 70 [facility], dey tolic, second observation 71 mm[Hg] [facility], syst olic, second observation 119 mm[Hg] [facility], oximetry 98 % [facility] 77 /min [facility], diastolic 78 mm[Hg] Vi [facility] Tebid blood pressure, systolic 125 mm[Hg] Fadi richard Tebid pulse rate #2 77 [place] bid blood pressure, dey tolic, second observation 70 mm[Hg] [facility], syst olic, second observation 125 mm[Hg] [facility], oximetry 98 % [facility] pulse rate 80 /min [facility], diastolic 72 mm[Hg] Vi ctoria Tebid blood pressure, systolic 135 mm[Hg] Fadi richard Tebid pulse rate #2 64 [facility], dey tolic, second observation 75 mm[Hg] [facility] blood [facility], syst olic, second observation 114 mm[Hg] [facility], oximetry 98 % [facility] pulse rate 60 /min Radha Tebid blood pressure, diastolic 77 mm[Hg] Vi ctoria Tebid blood pressure, systolic 125 mm[Hg] Fadi richard Tebid blood pressure, diastolic 70 mm[Hg] Ja guerda Martinez RN blood pressure, systolic 116 mm[Hg] Edilberto Martinez RN pulse rate 73 /min Edilberto Martniez RN oxygen saturation, oximetry 97 % Edilberto Martinez RN respiratory rate E&M 16 /min Edilberto saini RN Body Mass Index (Ratio) 28.80 kg/m2 Edilberto Martinez RN weight E&M 200 [lb_av] Edilberto Martinez RN pulse rate #2 77 [place] Tebid blood pressure, dey tolic, second observation [...] Fadi richard Tebid pulse rate #2 71 [place] Tebid blood pressure, dey tolic, second observation [...] % Radha Tebid pulse rate 78 /min [place] Tebid blood pressure, diastolic 79 mm[Hg] Vi ctoria Tebid blood pressure, systolic 110 mm[Hg] Fadi richard Tebid pulse rate #2 77 [place] Tebid blood pressure, dey tolic, second observation 66 mm[Hg] Radha Tebid blood pressure, syst olic, second observation 103 mm[Hg] Radha Tebid oxygen saturation, oximetry 98 % [place] Tebid pulse rate 70 /min [place] Tebid blood pressure, diastolic 78 mm[Hg] Vi ctoria Tebid blood pressure, systolic 123 mm[Hg] Fadi richard Tebid pulse rate #2 71 Radha Tebid blood pressure, dey tolic, second observation 77 mm[Hg] Radha Tebid blood pressure, syst olic, second observation 143 mm[Hg] Radha Tebid oxygen saturation, oximetry 98 % Radha Tebid pulse rate 76 /min [place] Tebid blood pressure, diastolic 82 mm[Hg] Vi ctoria Tebid blood pressure, systolic 152 mm[Hg] Fadi richard Tebid pulse rate #2 67 [place] Tebid blood pressure, dey tolic, second observation 62 mm[Hg] Radha blood pressure, syst olic, second observation 100 mm[Hg] Radha oxygen saturation, oximetry 98 % Radha pulse rate 75 /min Radha blood pressure, diastolic 82 mm[Hg] Vi ctoria Tebid blood pressure, systolic 156 mm[Hg] Fadi richard Ted pulse rate #2 80 [place] blood pressure, dey tolic, second observation 75 mm[Hg] Radha blood pressure, syst olic, second observation 118 mm[Hg] Radha oxygen saturation, oximetry 98 % Radha pulse rate 85 /min Radha blood pressure, diastolic 79 mm[Hg] Vi ohoria Ted blood pressure, systolic 168 mm[Hg] Fadi richard Ted pulse rate #2 78 [place] blood pressure, dey tolic, second observation 68 mm[Hg] Radha blood pressure, syst olic, second observation 107 mm[Hg] Radha oxygen saturation, oximetry 98 % Radha pulse rate 76 /min Radha blood pressure, diastolic 71 mm[Hg] Vi ctoria Ted blood pressure, systolic 116 mm[Hg] Fadi richard Ted pulse rate #2 76 [place] blood pressure, dey tolic, second observation 66 mm[Hg] Radha d blood pressure, syst olic, second observation 111 mm[Hg] Radha d oxygen saturation, oximetry 98 % Radha pulse rate 77 /min [place] blood pressure, diastolic 76 mm[Hg] Vi ctoria [...] Edilberto Martinez RN weight E&M 202 [lb_av] Edilbetro Martinez RN Body Mass Index (Ratio) 28.08 [...] Morton respiratory rate E&M 18 /min Denyemike Mroton weight E&M 182 [lb_av] Ethanmike Morton blood [...] 0-149 High cholesterol, serum 149 mg/dL [facility] [id number] 2842/04/ 08 calcium, serum 9.1 mg/dL [facility] 8.6-10.2 carbon dioxide, venous blood 26 mmol/L [facility] 20-29 chloride, serum 103 mmol/L [facility] 96-106 potassium, serum 4.0 mmol/L [facility] 3.5-5.2 sodium, serum 143 mmol/L [facility] [phone]/04/ 08 urea nitrogen/creatinine ratio, serum 16 [facility] [...] Not Estab. platelet count 206 X10E3/UL [facility] [id number] 7077/04/ 08 red blood cell distribution width 12.5 [...] cell distribution width, size density 51.8 fL [facility]ocytes, percentage of total cells, blood 0.2 % [facility]ated red [facility] cells as percent of blood leukocytes 0.4 % [facility] - red blood cell (erythrocyte) count, per high power field 0.0 10*3/UL [facility] - eosinophils as percent of blood leukocytes 3.0 % [facility] neutrophils as percent of blood [...] 3.9 mean platelet volume 10.0 (?) [facility] 245.0 THOUSAND/ UL [...] 10*3/mm3 Gage Gonsalez hematocrit, blood 43.7 % [facility] international normalized ratio (INR) 1.0 [facility] alanine aminotransferase (SGPT), serum 32 1/L [facility] aspartate aminotransferase (SGOT), serum 20 1/L [facility] creatinine, serum 1.09 mg/dL [facility] potassium, serum 4.4 mmol/L [facility] sodium, serum 141 mmol/L [facility] LDL cholesterol, serum 83 mg/dL [facility] cholesterol, serum 165 mg/dL [facility] prothrombin time (patient) 10.6 s [facility] international normalized ratio (INR) 1.0 [facility] creatinine, serum 1.24 mg/dL [facility] urea nitrogen, blood 20 mg/dL [facility] carbon dioxide, serum, total 26 mmol/L [facility] chloride, serum 104 mmol/L [facility] potassium, serum 4.5 mmol/L [facility] sodium, serum 140 mmol/L [facility] platelet count 251 10*3/uL [facility] hematocrit, blood 42.8 % [facility] hemoglobin, blood 14.1 g/dL [facility] erythrocyte (RBC) count 4.50 10*6/mm3 [facility] leukocyte count, blood 7.2 10*3/mm3 [facility] anion gap, serum 10.3 [facility] estimated glomerular filtration rate 58 mL/min [facility] blood glucose, fasting 99 mg/dL [facility] calcium, serum 9.0 mg/dL [facility] creatinine, serum 1.28 mg/dL [facility] urea nitrogen, blood 26.5 mg/dL [facility] carbon dioxide, serum, total 27 mmol/L [facility] chloride, serum 104 mmol/L [facility] potassium, serum 4.3 mmol/L [facility] sodium, serum 137 mmol/L [facility] platelet count 239 10*3/uL [facility] red blood cell distribution width 13.4 % [facility] mean corpuscular hemoglobin concentration, RBC 33.4 g/dL [facility] mean corpuscular hemoglobin, RBC 32.3 pg [facility] mean corpuscular volume, RBC 96.8 fL [facility] hematocrit, blood 42.5 % [facility] hemoglobin, blood 14.2 g/dL [facility] erythrocyte (RBC) count 4.39 10*6/mm3 [facility] monocytes as percent of blood leukocytes 8.7 % [facility] lymphocytes as percent of blood leukocytes 23.0 % [facility] leukocyte count, blood 7.1 10*3/mm3 [facility] international normalized ratio (INR) 1.4 [facility] prothrombin [facility] (patient) 13.8 s [facility] very low density lipoproteins 33 mg/dL [facility] triglyceride, serum, fasting 163 mg/dL [facility] HDL cholesterol, serum 39 mg/dL [facility] LDL cholesterol, serum 131 mg/dL [facility] cholesterol, serum 203 mg/dL [facility] thyroid stimulating hormone, serum 1.720 u[IU]/mL [facility] albumin/globulin ratio, serum 1.5 [facility] protein, total, serum 7.2 g/dL [facility] albumin, serum 4.3 g/dL [facility] bilirubin, serum, total 0.3 mg/dL [facility] alkaline phosphatase, serum 88 1/L [facility] alanine aminotransferase (SGPT), serum 18 1/L [facility] aspartate aminotransferase (SGOT), serum 16 1/L [facility] calcium, serum 9.6 mg/dL [facility] blood glucose, fasting 82 mg/dL [facility] creatinine, serum 1.25 mg/dL [facility] urea nitrogen, blood 19 mg/dL [facility] carbon dioxide, serum, total 23 mmol/L [facility] chloride, serum 103 mmol/L [facility] potassium, serum 4.1 mmol/L [facility] sodium, serum 141 mmol/L [facility] platelet count 255 10*3/uL [facility] red blood cell distribution width 14.3 % [facility] mean corpuscular hemoglobin concentration, RBC 33.7 g/dL [facility] mean corpuscular hemoglobin, RBC 31.6 pg [facility] mean corpuscular volume, RBC 94 fL [facility] hematocrit, blood 41.9 % [facility] hemoglobin, blood 14.1 g/dL [facility] erythrocyte (RBC) count 4.46 10*6/mm3 [facility] monocyte count, blood 0.6 10*3/mm3 [facility] lymphocyte count, blood 1.8 10*3/mm3 [facility] monocytes as percent of blood leukocytes 8 % [facility] lymphocytes as percent of blood leukocytes 23 % [facility] leukocyte count, blood 7.5 10*3/mm3 [facility] prostate specific antigen 3.63 ng/mL [facility] HISTORY OF MEDICATION USE Medication Status Instructions [...] capsule by mouth once a day Yaw Thackre MD Wellbutrin SR 150 mg tablet sustained-releas [...] f requency, days per week yes Leslie Gresham caffeine use, averag e drinks per day 3 /d Leslie Raul passive cigarette sm hardik exposure yes Leslie Gresham smoking, year quit 1998 Leslie Raul number of years as a smoker 10 years or m ore Leslie Raul smoking history, tot al pack/year 50 Leslie Gresham cigarette use yes Leslie Raul smoking status [...] passive cigarette sm hardik exposure yes [facility] smoking, year quit 1998 [facility] number of years as a smoker 10 years or m [facility] Malgorzata Faustin smoking history, tot al pack/year 50 [place] cigarette use yes [facility] smoking status Former smoker Malgor[place]ata nguyễn [...] Arya mejia is a former smoker. Yaw Thakcer MD social history reviewed E&M revi ewed [...] Danielle Rodriguez smoking status Former smoker Danielle ocrtez social history reviewed E&M revi ewed - [...] h [place] smoking history, tot al pack/year [id number] Griffin Vishalacoarya smoking, year quit 1998 Griffin horn social history reviewed E&M reviewed [facility] sm hardik exposure yes Griffin [place]aco smoking history, tot al pack/year 1 pack per day for 54 years [place] smoking, year quit 2001 Griffin horn smoking [...] Date Observation Value Provider energy level yes [place] Tebid energy level yes [place] Tebid energy level yes [place] Tebid energy level yes [place] Tebid energy level yes [place] [facility]eb[facility] energy level yes [place] [facility]ebid energy level yes [place] [facility]ebid energy level yes [place] Teb[facility] energy level yes [place] Tebid energy level yes [place] Tebid energy level yes [place] Tebid energy level yes [place] Tebid energy level yes [place] Tebid energy level yes [place] Tebid energy level yes [place] Tebid energy level yes [place] Tebid energy level yes [place] Tebid energy level yes [place] Tebid energy level yes [place] Tebid energy level yes [place] Tebid energy level yes Radha Tebid energy [...] Payer name Policy type / Coverage type [place] [employer] ID [facility] MEDIC[facility] ADVANTAGE (PPO) Other [id number] ADVANCE DIRECTIVES Name Date DISCUSSED - NO DECISION MADE TREATMENT PLAN Date Name Performer [id number],S, R epeat CTA scan in August. To discuss with PCP. Khushi [place] [id number],S, N o dizziness. Continues on plavix. Khushi [place] NP [id number],S, U nchanged. Khushi [place] NP [id number],S, H is updated medication list for this problem includes: Atorvastatin 20 Mg Tablet (Atorvastatin) ..... Take 1 tablet by mouth every night Khushi Orlnado NP [id number],S, N o chest pain. Khushi [place] NP [id number],S, Yaw Thacker MD [id number],W,H e does not wish to do a PFT or ct so will refer him to the lung doctor Dr KELLOGG pulmonary consult. Yaw Thacker MD [id number],S, Yaw Thakcer MD Cardiology: R epeat CTA scan in [...] Yaw Thacker MD Cardiology follow up Yaw jrery MD Cardiology follow up :will obtain 6 [...] MD Cardiology:Recently in the hospital at [facility] with shortness of breath. Will obtain his records Yaw Thacker MD Cardiology:ARLENE done 05/26/19 showed only mild arterial disease of the LE b/l. Yaw Thacker MD Cardiology follow up:Will check ARLENE's. Yaw Thacker MD Cardiology follow up Yaw jerry MD Cardiology follow up :On Atorvastatin. Labs checked by PCP. Yaw Thakcer MD Cardiology follow up :Continues to have [...] do not think this is progression of [place] CAD. Yaw Thacker MD Cardiology Follow up [...] severe Diffusion Defect Will refer patient to hotel custodian. Yaw Thacker MD fu:PFT (01/10/2015) P ulmonary [...] Will schedule L/R cardiac cath at [facility] Yaw Thacker MD fu:Will do stress adenosine [...] (Atorvastatin calcium) ..... At Imdur 30 Mg [id number] (Isosorbide mononitrate) ..... One tablet daily Propranolol [...] calcium) ..... At hs Imdur 30 Mg [id number] (Isosorbide mononitrate) ..... One tablet daily Aspirin 81 Mg Tabs (Aspirin) ..... 1 tablet by mouth daily Orders: Vanna LAM (CPT-[id number]) Yaw Thacker MD : T he following medications were removed from the medication list: Propranolol Hcl 20 Mg Tabs (Propranolol hcl) ..... 1 tablet by mouth twice daily His updated medication list for this problem includes: Plavix 75 Mg Tabs (Clopidogrel bisulfate) ..... 1 tab by mouth daily Atorvastatin Calcium 20 Mg Tabs (Atorvastatin calcium) ..... At hs Imdur 30 Mg [id number] (Isosorbide mononitrate) ..... One tablet daily Aspirin [...] calcium) ..... At hs Imdur 30 Mg [id number] (Isosorbide mononitrate) ..... One tablet daily Propranolol [...] calcium) ..... At hs Imdur 30 Mg [id number] (Isosorbide mononitrate) ..... 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 At Orders: C omplete Echo (CPT-[id number]) Yaw Thacker MD Follow-up, c/o chest pain and sh ortness of breath Yaw Thacker MD Follow-up, c/o chest pain and shortness of breath: H is updated medication list for this problem includes: Plavix 75 Mg Tabs (Clopidogrel bisulfate) ..... 1 tab by mouth daily Orders: E KG ([id number]) Yaw Thacker MD Follow-up, c/o chest pain [...] and thus i will do this at [facility] which has that facility Yaw Thacker MD [...] 78% which is within normal limits. [facility] (10/14/2010) C ardiac Cath: Normal left ventricular function. Normal left ventricular end diastolic pressure. 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 EF 60%. [facility] (11/05/2010) C ardiac Cath Comments: Successful stenting of the proximal RCA with a 3.5 x 15 Vision stent. [facility] (11/05/2010) C HOL: 203 (09/23/2010) LDL: 131 [...] Mild TR. EF 64%. RVSP 23mmg. [facility] (10/14/2010) Yaw Thacker MD routine Yaw Thacker [...] 78% which is within normal limits. [facility] (10/14/2010) C ardiac Cath: Normal left ventricular function. Normal left ventricular end diastolic pressure. 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 EF 60%. [facility] (11/05/2010) C ardiac Cath Comments: Successful stenting of the proximal RCA with a 3.5 x 15 Vision stent. [facility] (11/05/2010) h e will need another stress test but will do an adenosine myoview Yaw Thacker MD follow up:check the free testosterone and vit d levels. O rders: V ITAMIN D, 25-HYDROXY, LC/MS/MS (91629) O ther ([id number]) Yaw Thacker MD follow up: H is [...] RBC, INDIC ES, WBC, PLT) DLCO - 61300 FRC - 15261 FVC - 38549 STR - Adenosine Complete Echo Full PFT [...] completed EKG Yaw Thacker MD completed SNOMED-CT: 38231039 Physical Exam, Performed: Pulse Exam of Foot Yaw Thacker MD completed EKG Yaw Thacker MD completed SNOMED-CT: 259522860 594534 Current Medications Documented Yaw Thacker MD completed SNOMED-CT: 92400300 Physical Exam, Performed: Pulse Exam of Foot Yaw Thacker MD completed SNOMED-CT: 470011219 654973 Current Medications Documented Yaw Thacker MD completed SNOMED-CT: 57085765 Physical Exam, Performed: Pulse Exam of Foot Yaw Thacker MD completed SNOMED-CT: 737155737 881078 Current Medications Documented Yaw Thacker MD completed SNOMED-CT: 03514185 Physical Exam, Performed: Pulse Exam of Foot Yaw Thacker MD completed SNOMED-CT: 788653100 106370 Current Medications Documented Yaw Thacker MD completed Stress EKG Jeremiah Serrano MD completed Regadenoson, 4 units Michael stoner MD completed Cardiolite, 2 units Michael izquierdo MD completed SPECT Images Michael Knowles MD completed SNOMED-CT: 74766764 Physical Exam, Performed: Pulse Exam of Foot Yaw Thacker MD completed EKG Yaw Thacker MD completed SNOMED-CT: 392690921 276268 Current Medications Documented Yaw Thacker MD completed SNOMED-CT: 20608718 Physical Exam, Performed: Pulse Exam of Foot Yaw Thacker MD completed SNOMED-CT: 509636031 370182 Current Medications Documented Yaw Thacker MD completed SNOMED-CT: 21059613 Physical Exam, Performed: Pulse Exam of Foot Yaw Thacker MD completed SNOMED-CT: 925320677 199759 Current Medications Documented Yaw Thacker MD completed BLOOD COUNT HEMOGLOBIN Yaw Thacker MD completed FVC - 99666 Yaw Thacker MD complete d FRC - 59235 Yaw Thacker MD complete d DLCO - 14334 Yaw Thacker MD complet ed EKG Yaw Thacker MD completed DLCO - 71278 Chinmay Bell completed SVC - 07889 Chinmay Bell completed FVC - 43622 Chinmay Bell completed EKG Yaw Thacker MD completed EKG Yaw Thacker MD completed EKG Yaw Thacker MD completed EKG Yaw Thacker MD completed EKG Yaw Thacker MD completed
--- OUTSIDE RECORDS SUMMARY | 2024-10-12 16:31 | XMS_ITS | Clinical Summary ---
Author Organization [facility] Address [address] [place] [id number] Care Team Providers Care Outpatient Physical Therapist Name Role Phone Angelo Mccloud MD Primary Care Provider [phone] Allergies No known active allergies Medications budesonide-formo [...] (12/16/2020): Added automatically from request for surgery [id number] CAD (coronary artery disease) 09/22/2020 Overview (09/22/2020): Added automatically from request for surgery [id number] SOB (shortness of breath) 09/22/2020 Overview (09/22/2020): Added automatically from request for surgery [id number] Surgical History Surgery Date Site/Laterality Comments CARDIAC [...] on file 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 Gender Identity Not on file Sexual Orientation [...] Pneumococcal vaccine 65+ (2 of 2 - PPSV23) 02/20/2016 12/26/2015 Fall Risk Assessment 01/01/2022 01/01/2021 Influenza Vaccine (#1) 2024 03/25/2014, 2012 Medical Devices Implanted Type Area Tunnel Kiln Firer Device Identifier Shelf Expiration Date Model / Serial / Lot Medtronic [employer] X [id number] Resolute Cale 3.5mm 2.1-2.7fr 26mm 140cm Rapid Exchange - [id number] Implanted:Qty: 1 on 09/29/2020 by Yaw Thacker MD at [facility] [employer] [id number] / / Explanted Type Area Tunnel Kiln Firer Device Identifier Shelf Expiration Date Model / Serial / Lot [employer] [id number] Inlay Beecher 7fr 28cm Pusher Fluoro Marker Atraumatic Insertion Latex Free - [id number] Implanted:Qty: 1 on 01/01/2021 by Martin Alvarado MD at [facility] Explanted:Qty: 1 on 01/16/2021 Left: Ureter [employer] 06/26/2025 [id number] / / [id number] Insurance [employer] MEDICARE ADVANTAGE Advance Directives For more information, please contact: [phone] * Full Code (Latest Code Status on File) Date Activated Date Inactivated Comments 09/29/2020 10:32 AM 10/01/2020 6:10 PM Care Teams Outpatient Physical Therapist Relationship Specialty Start Date End Date Angelo Mccloud MD [address] [facility] [address] [place] [address] PCP - General 10/01/20
--- NOTE | 2024-10-12 17:32 | ED_ITS ---
HPI - General Adult General Chief complaint: Upper Respiratory Infection <Marsha Vaughan, KRAFT DIGESTER OPERATOR - Last Filed: 10/12/24 17:37> Stated complaint: Sick x 3 days, cough, fever-Home O2 2L <Marsha Vaughan, KRAFT DIGESTER OPERATOR - Last Filed: 10/12/24 17:37> Time Seen by Provider: 10/12/24 17:32 <Marsha Pinon September, KRAFT DIGESTER OPERATOR - Last Filed: 10/12/24 17:37> Focused HPI: Rogerio iVvar is an 88 y/o male who presents with POA , Patient states he has productive cough of thick green sputum for 3 days, complains of chest pain/ no appetite and not feeling well. GENERAL: no acute distress, appears unwell. HEAD: Normocephalic, atraumatic. CHEST: ?No respiratory distress requiring O2 2L HEART: Regular rate and rhythm.? NEURO: ?Alert and oriented x3. Patient screened in triage and initial orders placed.? ?Additional care and disposition to be based upon?diagnostic testing and treatment. <Marsha Pinon September, KRAFT DIGESTER OPERATOR - Last Filed: 10/12/24 17:37> History of Present Illness HPI narrative: Patient is an 88-year-old male presenting to the ER with new productive cough with increased weakness and confusion. Ongoing over 3 days. Typically wears 2 L of O2. reports he can typically walk but has been unable to over last 2 days. <Toin You MD - Last Filed: 10/12/24 22:10> Related Data Home medications: Home Medications ?Medication ?Instructions ?Recorded ?Confirmed ?Last Taken ?Type atorvastatin 20 mg tablet 20 mg PO DAILY 10/16/21 07/19/24 06/19/24 History budesonide-formoterol HFA 160 2 puff inhalation BID 10/16/21 07/19/24 05/29/24 History mcg-4.5 mcg/actuation aerosol inhaler (Symbicort) bupropion HCl 150 mg tablet,12 hr 150 mg PO BID 10/16/21 07/19/24 06/19/24 History sustained-release doxazosin 4 mg tablet 4 mg PO DAILY 10/16/21 07/19/24 06/19/24 History isosorbide mononitrate 30 mg 30 mg PO DAILY 10/16/21 07/19/2406/19/25 History tablet,extended release 24 hr Aspir-81 81 mg PO DAILY 05/09/23 07/19/24 06/19/24 History albuterol sulfate 90 mcg/actuation 2 puff inhalation PRN PRN Wheezing 05/09/23 07/19/24 06/19/24 History aerosol inhaler brimonidine 0.2 %-timolol 0.5 % 1 drp RIGHT EYE .COMPLEX 05/09/23 07/19/24 06/19/24 History eye drops (Combigan) latanoprost 0.005 % eye drops 1 drp RIGHT EYE HS 05/09/23 07/19/24 06/19/24 History omeprazole 40 mg capsule,delayed 40 mg PO DAILY 05/25/24 07/19/24 06/19/24 History release gabapentin 600 mg tablet 600 mg PO HS 05/30/24 07/19/24 06/19/24 History <Marsha Pinon September, KRAFT DIGESTER OPERATOR - Last Filed: 10/12/24 17:37> Allergies/adverse reactions: Allergies Allergy/AdvReac Type Severity Reaction Status Date / Time No Known Allergies Allergy Mild Verified 07/19/24 13:19 <Marsha Pinon September, KRAFT DIGESTER OPERATOR - Last Filed: 10/12/24 17:37> Review of Systems 2 Review of Systems: All systems reviewed & are unremarkable except as noted in HPI and below <Toni You MD - Last Filed: 10/12/24 22:10> Constitutional: Constitutional: Reports no additional constitutional complaints <Toni You MD - Last Filed: 10/12/24 22:10> ENT: Reports system reviewed and no additional complaints, except as documented <Toni You MD - Last Filed: 10/12/24 22:10> Cardiovascular: Cardiovascular: Reports no additional cardiovascular complaints <Toni You MD - Last Filed: 10/12/24 22:10> Respiratory: Respiratory: Reports no additional respiratory complaints < Toni You MD - Last Filed: 10/12/24 22:10> [facility] Past Medical History Medical History: Medical History (Updated 10/12/24 @ 21:39 by Denisha Venegas PA-C) Hyperlipidemia Hypertension Chronic respiratory failure with hypoxia, on home oxygen therapy Peripheral arterial disease Glaucoma Hard of hearing Legally blind Diverticular hemorrhage (04/2023) Colon, diverticulosis Rectal bleeding Sleep apnea refuses CPAP Emphysema/COPD <Marsha Pinon September, - Last Filed: 10/12/24 17:37> Surgical History Surgical History: Surgical History (Updated 10/12/24 @ 21:34 by Denisha Venegas PA-C) History of cataract extraction History of appendectomy History of carotid endarterectomy History of cholecystectomy History of cervical spinal surgery <Marsha Pinon September, - Last Filed: 10/12/24 17:37> Family History Family History: Family History Other Adopted <Marsha Pinon September, - Last Filed: 10/12/24 17:37> Social History Social History: Social History (Updated 10/12/24 @ 21:35 by Denisha Venegas PA-C) Social History: Healthcare power of environmental attorney: Nina Camara, friend ([phone]). Code status: Full code. Smoking packs per day: 1 Smoking cigarettes per day: 20.0 Years smoked: 25 Smoking pack-years: 25.00 Smoking status: Former smoker Tobacco type: cigarettes Alcohol intake: never Substance use: never Substance use type: does not use Do You Feel Safe in your Home?: Yes Lack of Transportation: No Lack of Food: Never True Current Housing: I Have Housing Concerned About Future Housing: No Difficulty Paying Gas/Electric Bills: No Difficulty Paying for Meds: No Currently Unemployed: No Education: Trade/Vocational Certificate Difficulty w/ Childcare or Family Care: No Living arrangements: alone Occupation/Education: retired Spiritual care concerns: No <Marsha Pinon September, - Last Filed: 10/12/24 17:37> Exam 2 Narrative: GENERAL: Chronically ill-appearing, well-nourished, and in no acute distress. HEAD: Normocephalic, atraumatic. ENT: Mucous membranes moist. CHEST: coarse cough with left basilar rales. No respiratory distress. HEART: Regular rate and rhythm. Normal peripheral pulses. ABDOMEN: Soft, nontender, nondistended. EXTREMITIES: Normal range of motion. No edema. SKIN: Warm, dry, no rash. NEURO: N Alert and oriented x2. PSYCH: Normal mood and affect. <Toni You MD - Last Filed: 10/12/24 22:10> Course Vital Signs Vital signs: Vital Signs Temperature 100.5 F H 10/12/24 16:33 Pulse Rate 70 10/12/24 16:33 Respiratory Rate 16 10/12/24 16:33 Blood Pressure 123/50 L 10/12/24 16:33 Pulse Oximetry 95 10/12/24 16:33 Oxygen Delivery Nasal Cannula 10/12/24 16:33 Oxygen Flow Rate 2 10/12/24 16:33 Temperature 98.9 F 10/12/24 22:03 Pulse Rate 74 10/12/24 22:03 Respiratory Rate 20 10/12/24 22:03 Blood Pressure 111/66 10/12/24 22:03 Pulse Oximetry 95 10/12/24 22:03 Oxygen Delivery Nasal Cannula 10/12/24 18:34 Oxygen Flow Rate 2 10/12/24 18:34 <Marsha Vaughan APRN - Last Filed: 10/12/24 17:37> Vital Signs Temperature 100.5 F H 10/12/24 16:33 Pulse Rate 70 10/12/24 16:33 Respiratory Rate 16 10/12/24 16:33 Blood Pressure 123/50 L 10/12/24 16:33 Pulse Oximetry 95 10/12/24 16:33 Oxygen Delivery Nasal Cannula 10/12/24 16:33 Oxygen Flow Rate 2 10/12/24 16:33 Temperature 98.9 F 10/12/24 22:03 Pulse Rate 74 10/12/24 22:03 Respiratory Rate 20 10/12/24 22:03 Blood Pressure 111/66 10/12/24 22:03 Pulse Oximetry 95 10/12/24 22:03 Oxygen Delivery Nasal Cannula 10/12/24 18:34 Oxygen Flow Rate 2 10/12/24 18:34 <Toni You MD - Last Filed: 10/12/24 22:10> Medical Decision Making Vital Signs Vital Signs: Vital Signs Temperature 100.5 F H 10/12/24 16:33 Pulse Rate 70 10/12/24 16:33 Respiratory Rate 16 10/12/24 16:33 Blood Pressure 123/50 L 10/12/24 16:33 Pulse Oximetry 95 10/12/24 16:33 Oxygen Delivery Nasal Cannula 10/12/24 16:33 Oxygen Flow Rate 2 10/12/24 16:33 Temperature 98.9 F 10/12/24 22:03 Pulse Rate 74 10/12/24 22:03 Respiratory Rate 20 10/12/24 22:03 Blood Pressure 111/66 10/12/24 22:03 Pulse Oximetry 95 10/12/24 22:03 Oxygen Delivery Nasal Cannula 10/12/24 18:34 Oxygen Flow Rate 2 10/12/24 18:34 <Marsha Vaughan APRN - Last Filed: 10/12/24 17:37> Vital Signs Temperature 100.5 F H 10/12/24 16:33 Pulse Rate 70 10/12/24 16:33 Respiratory Rate 16 10/12/24 16:33 Blood Pressure 123/50 L 10/12/24 16:33 Pulse Oximetry 95 10/12/24 16:33 Oxygen Delivery Nasal Cannula 10/12/24 16:33 Oxygen Flow Rate 2 10/12/24 16:33 Temperature 98.9 F 10/12/24 22:03 Pulse Rate 74 10/12/24 22:03 Respiratory Rate 20 10/12/24 22:03 Blood Pressure 111/66 10/12/24 22:03 Pulse Oximetry 95 10/12/24 22:03 Oxygen Delivery Nasal Cannula 10/12/24 18:34 Oxygen Flow Rate 2 10/12/24 18:34 <Toni You MD - Last Filed: 10/12/24 22:10> Lab Data Result diagrams: 10/12/24 18:35 10/12/24 18:36 <Marsha Vaughan APRN - Last Filed: 10/12/24 17:37> Labs: Lab Results 10/12/24 10/12/24 Range/Units 18:35 18:36 WBC 11.1 H (4.5-10.0) K/mm3 RBC 3.83 L (4.6-6.20) M/mm3 Hgb 13.0 L (14.0-18.0) g/dL Hct 40.9 L (42.0-52.0) % MCV 106.8 H (80-100) fl MCH 33.9 (26-34) pg MCHC 31.8 L (32-36) g/dl RDW 13.8 (11.5-14.5) % Plt Count 181 (150-375) k/mm3 MPV 9.8 (7.4-10.4) fl Immature Gran % (Auto) Not Reportable Neut % (Auto) Not Reportable Lymph % (Auto) Not Reportable Weld % (Auto) Not Reportable Eos % (Auto) Not Reportable Baso % (Auto) Not Reportable Lymph # (Auto) Not Reportable Weld # (Auto) Not Reportable Eos # (Auto) Not Reportable Baso # (Auto) Not Reportable Abs Immat Gran (auto) Not Reportable Absolute Neuts (auto) Not Reportable Absolute Nucleated RBC Not Reportable Total Counted 100 Neutrophils % (Manual) 79 H (46-73) % Band Neutrophils % 4 (0-6) % Lymphocytes % (Manual) 7.0 L (18-44) % Monocytes % (Manual) 10 H (3-9) % Nucleated RBC % Not Reportable Abs Neuts (Manual) 9.21 H (1.3-6.7) K/mm3 Abs Lymphs (Manual) 0.77 L (1.1-4.5) K/mm3 Abs Monocytes (Manual) 1.11 H (0.1-0.90) K/mm3 Platelet Estimate Adequate (Adequate) % Immature Plt Fraction 2.2 (0.9-11.2) % Hypochromasia 1+ Macrocytosis 1+ (NORMAL) Schistocytes None seen PT 14.8 H (11.1-14.7) Seconds INR 1.1 APTT 26.5 (22.3-36.8) Seconds Sodium 138 (137-145) mmol/L Potassium 4.0 (3.4-5.0) mmol/L Chloride 102 (98-107) mmol/L Carbon Dioxide 23 (22-30) mmol/L Anion Gap 13 H (4-12) mmol/L BUN 22 H D (9-20) mg/dL Creatinine 1.16 (0.7-1.3) mg/dL Estim Creat Clear Calc 42 ml/min Estimated GFR 59 (59 - ) Glucose 91 (65-110) mg/dL Lactic Acid 1.0 (0.7-2.0) mmol/L Calcium 8.5 (8.4-10.2) mg/dL Total Bilirubin 1.2 (0.2-1.3) mg/dL AST 26 (17-59) U/L ALT 16 (6-50) U/L Alkaline Phosphatase 131 H (38-126) U/L Troponin I < 0.012 (0.000-0.034) ng/mL C-Reactive Protein 18.7 H (<1.0) mg/dL Total Protein 7.0 (6.3-8.2) g/dL Albumin 4.0 (3.5-5.1) g/dL Influenza A (RT-PCR) Negative (Negative) Influenza B (RT-PCR) Negative (Negative) RSV (RT-PCR) Negative (Negative) SARS-CoV-2 RNA (RT-PCR) Negative (Negative) <Marsha Vaughan, KRAFT DIGESTER OPERATOR - Last Filed: 10/12/24 17:37> Lab Results 10/12/24 10/12/24 Range/Units 18:35 18:36 WBC 11.1 H (4.5-10.0) K/mm3 RBC 3.83 L (4.6-6.20) M/mm3 Hgb 13.0 L (14.0-18.0) g/dL Hct 40.9 L (42.0-52.0) % MCV 106.8 H (80-100) fl MCH 33.9 (26-34) pg MCHC 31.8 L (32-36) g/dl RDW 13.8 (11.5-14.5) % Plt Count 181 (150-375) k/mm3 MPV 9.8 (7.4-10.4) fl Immature Gran % (Auto) Not Reportable Neut % (Auto) Not Reportable Lymph % (Auto) Not Reportable Weld % (Auto) Not Reportable Eos % (Auto) Not Reportable Baso % (Auto) Not Reportable Lymph # (Auto) Not Reportable Weld # (Auto) Not Reportable Eos # (Auto) Not Reportable Baso # (Auto) Not Reportable Abs Immat Gran (auto) Not Reportable Absolute Neuts (auto) Not Reportable Absolute Nucleated RBC Not Reportable Total Counted 100 Neutrophils % (Manual) 79 H (46-73) % Band Neutrophils % 4 (0-6) % Lymphocytes % (Manual) 7.0 L (18-44) % Monocytes % (Manual) 10 H (3-9) % Nucleated RBC % Not Reportable Abs Neuts (Manual) 9.21 H (1.3-6.7) K/mm3 Abs Lymphs (Manual) 0.77 L (1.1-4.5) K/mm3 Abs Monocytes (Manual) 1.11 H (0.1-0.90) K/mm3 Platelet Estimate Adequate (Adequate) % Immature Plt Fraction 2.2 (0.9-11.2) % Hypochromasia 1+ Macrocytosis 1+ (NORMAL) Schistocytes None seen PT 14.8 H (11.1-14.7) Seconds INR 1.1 APTT 26.5 (22.3-36.8) Seconds Sodium 138 (137-145) mmol/L Potassium 4.0 (3.4-5.0) mmol/L Chloride 102 (98-107) mmol/L Carbon Dioxide 23 (22-30) mmol/L Anion Gap 13 H (4-12) mmol/L BUN 22 H D (9-20) mg/dL Creatinine 1.16 (0.7-1.3) mg/dL Estim Creat Clear Calc 42 ml/min Estimated GFR 59 (59 - ) Glucose 91 (65-110) mg/dL Lactic Acid 1.0 (0.7-2.0) mmol/L Calcium 8.5 (8.4-10.2) mg/dL Total Bilirubin 1.2 (0.2-1.3) mg/dL AST 26 (17-59) U/L ALT 16 (6-50) U/L Alkaline Phosphatase 131 H (38-126) U/L Troponin I < 0.012 (0.000-0.034) ng/mL C-Reactive Protein 18.7 H (<1.0) mg/dL Total Protein 7.0 (6.3-8.2) g/dL Albumin 4.0 (3.5-5.1) g/dL Influenza A (RT-PCR) Negative (Negative) Influenza B (RT-PCR) Negative (Negative) RSV (RT-PCR) Negative (Negative) SARS-CoV-2 RNA (RT-PCR) Negative (Negative) <Toni You MD - Last Filed: 10/12/24 22:10> Imaging Data Radiologist's impression: ITS Impressions Chest X-Ray 10/12/24 18:29 IMPRESSION: Left basilar atelectasis versus pneumonia. Opacities in the left mid zone are unchanged. Further evaluation to exclude nodules is advised. <Toni You MD - Last Filed: 10/12/24 22:10> ECG Data EKG #1: ECG completion date: 10/12/24 <Toni You MD - Last Filed: 10/12/24 22:10> ECG completion time: 18:32 <Toni You MD - Last Filed: 10/12/24 22:10> EKG Interpretation: normal rate (75), sinus rhythm, widened QRS and RBBB <Toni You MD - Last Filed: 10/12/24 22:10> Discharge Plan Discharge Clinical Impression: Pneumonia <Marsha Vaughan APRN - Last Filed: 10/12/24 17:37> Patient Disposition: Still a Patient <Marsha Vaughan APRN - Last Filed: 10/12/24 17:37> Condition: Stable <Marsha Vaughan APRN - Last Filed: 10/12/24 17:37>
--- OUTSIDE RECORDS SUMMARY | 2024-10-12 18:09 | XMS_ITS | Clinical Summary ---
Author Organization [facility] Address [address] [place] [address] Care Team Providers Care Information Technology Program Manager Name Role Phone Angelo Mccloud MD Primary Care Provider [phone] Allergies No known active allergies Medications budesonide-formo [...] (12/16/2020): Added automatically from request for surgery [id number] CAD (coronary artery disease) 09/22/2020 Overview (09/22/2020): Added automatically from request for surgery [id number] SOB (shortness of breath) 09/22/2020 Overview (09/22/2020): Added automatically from request for surgery [id number] Surgical History Surgery Date Site/Laterality Comments CARDIAC [...] on file 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 Gender Identity Not on file Sexual Orientation [...] 03/25/2014, 2012 Medical Devices Implanted Type Area Warehouse Handler Device Identifier Shelf Expiration Date Model / Serial / Lot [employer] X [id number] Resolute Cale 3.5mm 2.1-2.7fr 26mm 140cm Rapid Exchange - [id number] Implanted:Qty: 1 on 09/29/2020 by Yaw Thacker MD at [facility] [employer] [id number] / / Explanted Type Area Warehouse Handler Device Identifier Shelf Expiration Date Model / Serial / Lot [employer] [id number] Inlay [place] 7fr 28cm Pusher Fluoro Marker Atraumatic Insertion Latex Free - [id number] Implanted:Qty: 1 on 01/01/2021 by Martin Alvarado MD at [facility] Explanted:Qty: 1 on 01/16/2021 Left: Ureter [employer] 06/26/2025 [id number] / / [id number] Insurance [facility] MEDICARE ADVANTAGE Advance Directives For more information, please contact: [phone] * Full Code (Latest Code Status on File) Date Activated Date Inactivated Comments 09/29/2020 10:32 AM 10/01/2020 6:10 PM Care Teams Information Technology Program Manager Relationship Specialty Start Date End Date Angelo Mccloud MD [address] [facility] [address] [place] [address] PCP - General 10/01/20
--- OUTSIDE RECORDS SUMMARY | 2024-10-12 18:09 | XMS_ITS | Referral Summary ---
Author Organization [facility] Address [address] [place] [id number] Care Team Providers Care Cook Dessert Name Role Phone Angelo Mccloud MD Primary Care Provider [phone] Allergies No known active allergies Medications budesonide-formo [...] (12/16/2020): Added automatically from request for surgery [id number] CAD (coronary artery disease) 09/22/2020 Overview (09/22/2020): Added automatically from request for surgery [id number] SOB (shortness of breath) 09/22/2020 Overview (09/22/2020): Added automatically from request for surgery [id number] Social History Tobacco Use Types Packs/Day Years [...] on file 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 Gender Identity Not on file Sexual [...] on file Medical Devices Implanted Type Area Reimbursement Counselor Device Identifier Shelf Expiration Date Model / Serial / Lot [employer] X [id number] Resolute [place] 3.5mm 2.1-2.7fr 26mm 140cm Rapid Exchange - [id number] Implanted:Qty: 1 on 09/29/2020 by Yaw Thacker MD at [facility] [employer] [id number] / / Explanted Type Area Reimbursement Counselor Device Identifier Shelf Expiration Date Model / Serial / Lot [employer] [id number] Inlay Purple [place] 7fr 28cm Pusher Fluoro Marker Atraumatic Insertion Latex Free - [id number] Implanted:Qty: 1 on 01/01/2021 by Martin Alvarado MD at [facility] Explanted:Qty: 1 on 01/16/2021 Left: [employer] 06/26/2025 [id number] / / [id number] Insurance [facility] Address: [place] [address] [facility] Address: [place] [address] [facility] Address: [address] [address] [place] [address] Advance Directives For more information, please contact: [phone] * Full Code (Latest Code Status on File) Date Activated Date Inactivated Comments 09/29/2020 10:32 AM 10/01/2020 6:10 PM Care Teams Cook Dessert Relationship Specialty Start Date End Date Angelo Mccloud MD [address] [place] [address] PCP - General 10/01/20
--- OUTSIDE RECORDS SUMMARY | 2024-10-12 18:09 | XMS_ITS | CONTINUITY OF CARE DOCUMENT ---
Author Name isaiah, diegoser Address Unknown Organization [facility] Address [address] [place] [address] Phone [phone] Care Team Providers Care Circuits Engineer Name Role Phone Jeremiah Serrano MD Unavailable [phone] Irwin Padilla MD Unavailable Irwin Padilla MD [...] Thacker MD Lung nodules active Khushi Orlando [employer] Coronavirus infection, 05/2021 active Khushi Orlando [employer] ENCOUNTERS Date Type Provider Location Encounter Diag nosis - In-person encounter Office Visit aYw Thacker MD [facility] Lung nodulesCoronavirus infection, 05/2021 - In-person encounter Office Visit Yaw Thacker MD [facility] - In-person encounter Office Visit Yaw Thacker MD [facility] - In-person encounter Office Visit Yaw Thacker MD [facility] - In-person encounter Office Visit Yaw Thacker MD [facility] - In-person encounter Office Visit Yaw Thacker MD [facility] Carotid artery disease s/p L CEA - In-person encounter Office Visit Yaw Thacker MD [facility] CAD-09/08 CAROTID NEGPreoperative cardiovascular examinationClaudication, intermittent - In-person encounter Office Visit Yaw Thacker MD [facility] - In-person encounter Office Visit Yaw Thacker MD [facility] Dizziness - In-person encounter Office Visit Yaw Thacker MD [facility] - In-person encounter Office Visit Yaw Thacker MD [facility] - In-person encounter Office Visit Yaw Thacker MD [facility] - In-person encounter Office Visit Yaw Thacker MD [facility] - In-person encounter Office Visit Yaw Thacker MD [facility] Hyperlipidemia - In-person encounter Office Visit Yaw Thacker MD [facility] - In-person encounter Office Visit Yaw Thacker MD [facility] Leg numbness - In-person encounter Office Visit Yaw Thacker MD [facility] - In-person encounter Office Visit Yaw Thacker MD [facility] - In-person encounter Office Visit Yaw Thacker MD [facility] SHORTNESS OF BREATH - In-person encounter Office Visit Yaw Thacker MD [facility] - In-person encounter Office Visit Yaw Thacker MD [facility] - In-person encounter Office Visit Yaw Thacker MD [facility] - In-person encounter Office Visit Yaw Thacker MD [facility] - In-person encounter Office Visit Yaw Thacker MD [facility] CAD-5/12 STENT XIENCE 1 DIAG--6/ VISION STENT RCA - In-person encounter Office Visit Yaw Thacker MD [facility] - In-person encounter Office Visit Yaw Thacker MD [facility] CAD-5/12 STENT XIENCE 1 DIAG--6/11 VISION STENT RCA - In-person encounter Office Visit Yaw Thacker MD [facility] - In-person encounter Office Visit Yaw Thacker MD [facility] CAD-5/12 STENT XIENCE 1 DIAG--6/11 VISION STENT RCA - In-person encounter Office Visit Yaw Thacker MD [facility] CAD-5/12 STENT XIENCE 1 DIAG--6/ VISION STENT RCA - In-person encounter Office Visit Yaw Thacker MD [facility] VITAL SIGNS Date Observation Value Provider Body Mass Index (Ratio) 25.11 kg/m2 Johny Thacker MD blood pressure, diastolic 88 mm[Hg] Ca therine [place] blood pressure, systolic 129 mm[Hg] Cat herine Raul blood pressure, cuff size regular Ca therine [place] oxygen saturation, oximetry 92 % Leslie Raul respiratory rate E&M 14 /min Catheri ne [place] pulse rate 72 /min Leslie Raul weight E&M 175 [lb_av] Leslie Raul height E&M 70 [in_i] Leslie Raul Body Mass Index (Ratio) 26.25 kg/m2 Johny Thacker MD blood pressure, cuff size regular Cy adri [place] blood pressure, diastolic 70 mm[Hg] Cy [...] 78 /min Danielle Ring [facility] weight E&M 188 [lb_av] Danielle Ring [facility] height E&M 70 [in_i] Danielle Ring [facility] Body Mass Index (Ratio) 27.55 kg/m2 Johny [...] blood pressure, cuff size regular [facility], diastolic 77 mm[Hg] Ke rri [facility] blood pressure, systolic 142 mm[Hg] Salvador ri [facility] oxygen saturation, oximetry 98 % Danielle Rodriguez [...] pickett [place] blood pressure, systolic 122 mm[Hg] [facility] sabine [place] pulse rate #2 74 [facility] blood pressure, dey tolic, second observation 71 mm[Hg] [facility] blood pressure, syst olic, second observation 108 mm[Hg] [facility] oxygen saturation, oximetry 97 % [facility] pulse rate 77 /min [facility] blood pressure, diastolic 71 mm[Hg] Vi ctoria [facility] blood pressure, systolic 133 mm[Hg] Fadi richard [facility] pulse rate #2 69 [facility] blood pressure, dey tolic, second observation 66 mm[Hg] [facility] blood pressure, syst olic, second observation 108 mm[Hg] [facility] oxygen saturation, oximetry 97 % [facility] pulse rate 77 /min [facility] blood pressure, diastolic 81 mm[Hg] Vi ctoria Tebid blood pressure, systolic 117 mm[Hg] Fadi richard T[facility]id pulse rate #2 69 [place] bid blood pressure, dey tolic, second observation 93 mm[Hg] Radha Tebid blood pressure, syst olic, second observation 152 mm[Hg] Radha Tebid oxygen saturation, oximetry 97 % [place] bid pulse rate 75 /min [place] d blood pressure, diastolic 97 mm[Hg] Vi ctoria Tebid blood pressure, systolic 168 mm[Hg] Fadi richard Tebid pulse rate #2 57 [place] d blood pressure, dey tolic, second observation 70 mm[Hg] [facility] blood pressure, syst olic, second observation 133 mm[Hg] [place] Tebid oxygen saturation, oximetry 97 % [place] d pulse rate 55 /min [place] Tebid blood pressure, diastolic 87 mm[Hg] Vi ctoria Tebid blood pressure, systolic 126 mm[Hg] Fadi richard Tebid pulse rate #2 73 [place] d blood pressure, dey tolic, second observation 73 mm[Hg] [facility] blood pressure, syst olic, second observation 118 mm[Hg] [place] Tebid oxygen saturation, oximetry 97 % [place] Ted pulse rate 56 /min [place] Tebid blood pressure, diastolic 68 mm[Hg] Vi ctoria Tebid blood pressure, systolic 133 mm[Hg] Fadi richard Tebid pulse rate #2 72 [facility] blood pressure, dey tolic, second observation 71 mm[Hg] [place] Tebid blood pressure, syst olic, second observation 124 mm[Hg] [place] Tebid oxygen saturation, oximetry 97 % [place] Tebid pulse rate 78 /min Radha Tebid blood pressure, diastolic 95 mm[Hg] Vi ctoria Tebid blood pressure, systolic 153 mm[Hg] Fadi richard T[facility]id pulse rate #2 75 [facility] Tebid blood pressure, dey tolic, second observation 66 mm[Hg] Radha Tebid blood pressure, syst olic, second observation 130 mm[Hg] Radha Tebid oxygen saturation, oximetry 97 % Radha Tebid pulse rate 75 /min [place] Tebid blood pressure, diastolic 79 mm[Hg] Vi ctoria Tebid blood pressure, systolic 143 mm[Hg] Fadi richard Tebid pulse rate #2 87 [place] Tebid blood pressure, dey tolic, second observation 92 mm[Hg] Radha Tebid blood pressure, syst olic, second observation 109 mm[Hg] Radha Tebid oxygen saturation, oximetry 97 % Radha Tebid pulse rate 88 /min [place] Tebid blood pressure, diastolic 62 mm[Hg] Vi ctoria Tebid blood pressure, systolic 119 mm[Hg] Fadi richrad Tebid pulse rate #2 71 [place] Tebid blood pressure, dey tolic, second observation 79 mm[Hg] Radha Tebid blood pressure, syst olic, second observation 128 mm[Hg] Radha Tebid oxygen saturation, oximetry 97 % [place] Tebid pulse rate 77 /min [place] Tebid blood pressure, diastolic 100 mm[Hg] Vi ctoria Tebid blood pressure, systolic 134 mm[Hg] Fadi richard Tebid pulse rate #2 77 [place] Tebid blood pressure, dey tolic, second observation [...] Fadi richard Tebid pulse rate #2 78 [place] Tebid blood pressure, dey tolic, second observation 76 mm[Hg] Radha Tebid blood pressure, syst olic, second observation 126 mm[Hg] Radha Tebid oxygen saturation, oximetry 97 % Radha Tebid pulse rate 68 /min [place] Tebid blood pressure, diastolic 82 mm[Hg] Vi [...] Fadi richard Tebid pulse rate #2 68 [place] Tebid blood pressure, dey tolic, second observation 76 mm[Hg] Radha d blood pressure, syst olic, second observation 128 mm[Hg] Radha d oxygen saturation, oximetry 97 % Radha d pulse rate 71 /min Radha d blood pressure, diastolic 79 mm[Hg] Vi ctoria Tebid blood pressure, systolic 132 mm[Hg] Fadi richard Tebid pulse rate #2 69 [place] blood pressure, dey tolic, second observation 59 mm[Hg] Radha blood pressure, syst olic, second observation 112 mm[Hg] Radha d oxygen saturation, oximetry 97 % Radha pulse rate 75 /min Radha blood pressure, diastolic 66 mm[Hg] Vi [facility] Ted blood pressure, systolic 124 mm[Hg] Fadi richard Ted pulse rate #2 61 [place] blood pressure, dey tolic, second observation 65 mm[Hg] Radha d blood pressure, syst olic, second observation 124 mm[Hg] Radha d oxygen saturation, oximetry 97 % Radha pulse rate 66 /min Radha blood pressure, diastolic 72 mm[Hg] Vi ctoria Tebid blood pressure, systolic 133 mm[Hg] Fadi richard Tebid pulse rate #2 79 [place] d blood pressure, dey tolic, second observation 77 mm[Hg] Radha d blood pressure, syst olic, second observation 124 mm[Hg] Radha d oxygen saturation, oximetry 97 % Radha d pulse rate 72 /min [place] d blood pressure, diastolic 74 mm[Hg] Vi ctoria Tebid blood pressure, systolic 141 mm[Hg] Fadi richard Tebid pulse rate #2 71 [facility] Tebid blood pressure, dey tolic, second observation 66 mm[Hg] Radha Tebid blood pressure, syst olic, second observation 107 mm[Hg] Radha Tebid oxygen saturation, oximetry 97 % Radha Tebid pulse rate 70 /min [place] Tebid blood pressure, diastolic 78 mm[Hg] Vi ctoria Tebid blood pressure, systolic 137 mm[Hg] Fadi richard Tebid pulse rate #2 75 [facility] blood pressure, dey tolic, second observation 86 mm[Hg] Radha Tebid blood pressure, syst olic, second observation 138 mm[Hg] [facility] oxygen saturation, oximetry 97 % [facility] pulse rate 79 /min [facility] blood pressure, diastolic 76 mm[Hg] Vi ctoria Tebid blood pressure, systolic 130 mm[Hg] [facility] #2 71 [place] Tebid blood pressure, dey tolic, second observation 71 mm[Hg] Radha Tebid blood pressure, syst olic, second observation 101 mm[Hg] Radha Tebid oxygen saturation, oximetry 97 % [facility] pulse rate 68 /min [place] Tebid blood pressure, diastolic 76 mm[Hg] Vi ctoria Tebid blood pressure, systolic 139 mm[Hg] Fadi richard Tebid pulse rate #2 94 [facility] blood pressure, dey tolic, second observation 57 mm[Hg] [place] Tebid blood pressure, syst olic, second observation 114 mm[Hg] [place] Tebid oxygen saturation, oximetry 97 % [facility] pulse rate 96 /min [facility] blood pressure, diastolic 72 mm[Hg] Vi ctoria Tebid blood pressure, systolic 116 mm[Hg] Fadi richard Tebid pulse rate #2 76 [facility] blood pressure, dey tolic, second observation 84 mm[Hg] Radha bid blood pressure, syst olic, second observation 122 mm[Hg] [facility] oxygen saturation, oximetry 98 % [facility] pulse rate 71 /min [facility] blood pressure, diastolic 79 mm[Hg] Vi ctoria Tebid blood pressure, systolic 134 mm[Hg] Fadi richard Tebid pulse rate #2 70 [facility] Vistad blood pressure, dey tolic, second observation 71 mm[Hg] [facility] blood pressure, syst olic, second observation 119 mm[Hg] [facility] oxygen saturation, oximetry 98 % [facility] pulse rate 77 /min [facility] blood pressure, diastolic 78 mm[Hg] Vi [facility] Tebid blood pressure, systolic 125 mm[Hg] Fadi richard Tebid pulse rate #2 77 [place] bid blood pressure, dey tolic, second observation 70 mm[Hg] [facility] blood pressure, syst olic, second observation 125 mm[Hg] [facility] oxygen saturation, oximetry 98 % [facility] pulse rate 80 /min [facility] blood pressure, diastolic 72 mm[Hg] Vi ctoria Tebid blood pressure, systolic 135 mm[Hg] Fadi richard Tebid pulse rate #2 64 [facility] blood pressure, dey tolic, second observation 75 mm[Hg] [facility] blood pressure, syst olic, second observation 114 mm[Hg] [facility] oxygen saturation, oximetry 98 % [facility] pulse rate 60 /min Radha Tebid blood [...] Edilberto Martinez RN pulse rate #2 77 [place] Tebid blood pressure, dey tolic, second observation [...] Fadi richard Tebid pulse rate #2 71 [place] Tebid blood pressure, dey tolic, second observation [...] % Radha Tebid pulse rate 78 /min [place] Tebid blood pressure, diastolic 79 mm[Hg] Vi ctoria Tebid blood pressure, systolic 110 mm[Hg] Fadi richard Tebid pulse rate #2 77 [place] Tebid blood pressure, dey tolic, second observation 66 mm[Hg] Radha Tebid blood pressure, syst olic, second observation 103 mm[Hg] Radha Tebid oxygen saturation, oximetry 98 % [place] Tebid pulse rate 70 /min [place] Tebid blood pressure, diastolic 78 mm[Hg] Vi ctoria Tebid blood pressure, systolic 123 mm[Hg] Fadi richard Tebid pulse rate #2 71 [facility] Tebid blood pressure, dey tolic, second observation 77 mm[Hg] Radha Tebid blood pressure, syst olic, second observation 143 mm[Hg] Radha Tebid oxygen saturation, oximetry 98 % Radha Tebid pulse rate 76 /min [place] Tebid blood pressure, diastolic 82 mm[Hg] Vi ctoria Tebid blood pressure, systolic 152 mm[Hg] Fadi richard Tebid pulse rate #2 67 [place] Tebid blood pressure, dey tolic, second observation 62 mm[Hg] Radha blood pressure, syst olic, second observation 100 mm[Hg] Radha oxygen saturation, oximetry 98 % Radha pulse rate 75 /min Radha blood pressure, diastolic 82 mm[Hg] Vi ctoria Tebid blood pressure, systolic 156 mm[Hg] Fadi richard Ted pulse rate #2 80 [place] blood pressure, dey tolic, second observation 75 mm[Hg] Radha blood pressure, syst olic, second observation 118 mm[Hg] Radha oxygen saturation, oximetry 98 % Radha pulse rate 85 /min Radha blood pressure, diastolic 79 mm[Hg] Vi mdoria Ted blood pressure, systolic 168 mm[Hg] Fadi richard Ted pulse rate #2 78 [place] blood pressure, dey tolic, second observation 68 mm[Hg] Radha blood pressure, syst olic, second observation 107 mm[Hg] Radha oxygen saturation, oximetry 98 % Radha pulse rate 76 /min Radah blood pressure, diastolic 71 mm[Hg] Vi ctoria Ted blood pressure, systolic 116 mm[Hg] Fadi richard Ted pulse rate #2 76 [place] blood pressure, dey tolic, second observation 66 mm[Hg] Radha d blood pressure, syst olic, second observation 111 mm[Hg] Radha d oxygen saturation, oximetry 98 % Radha pulse rate 77 /min [place] blood pressure, diastolic 76 mm[Hg] Vi ctoria [...] Morton oxygen saturation, oximetry 95 % Bhavesh Morotn respiratory rate E&M 18 /min Denyemike Morton [...] 0-149 High cholesterol, serum 149 mg/dL [facility] [phone]/04/ 08 calcium, serum 9.1 mg/dL [facility] 8.6-10.2 carbon dioxide, venous blood 26 mmol/L [facility] 20-29 chloride, serum 103 mmol/L [facility] 96-106 potassium, serum 4.0 mmol/L [facility] 3.5-5.2 sodium, serum 143 mmol/L [facility] [phone]/04/ 08 urea nitrogen/creatinine ratio, serum 16 [facility] [...] Not Estab. platelet count 206 X10E3/UL [facility] [phone]/04/ 08 red blood cell distribution width 12.5 [...] percentage of total cells, blood 0.2 % [facility] - nucleated red blood cells as percent of blood leukocytes 0.4 % [facility] - red blood cell (erythrocyte) count, per high power field 0.0 10*3/UL [facility] - eosinophils as percent of blood leukocytes 3.0 % [facility] - neutrophils as percent of blood leukocytes [...] - 3.9 mean platelet volume 10.0 (?) [facility] platelet count 245.0 THOUSAND/ UL [facility] [...] 10*3/mm3 Gage Gonsalez hematocrit, blood 43.7 % [facility] international normalized ratio (INR) 1.0 [facility] alanine aminotransferase (SGPT), serum 32 1/L [facility] aspartate aminotransferase (SGOT), serum 20 1/L [facility] creatinine, serum 1.09 mg/dL [facility] potassium, serum 4.4 mmol/L [facility] sodium, serum 141 mmol/L [facility] LDL cholesterol, serum 83 mg/dL [facility] cholesterol, serum 165 mg/dL [facility] prothrombin time (patient) 10.6 s [facility] international normalized ratio (INR) 1.0 [facility] creatinine, serum 1.24 mg/dL [facility] urea nitrogen, blood 20 mg/dL [facility] carbon dioxide, serum, total 26 mmol/L [facility] chloride, serum 104 mmol/L [facility] potassium, serum 4.5 mmol/L [facility] sodium, serum 140 mmol/L [facility] platelet count 251 10*3/uL [facility] hematocrit, blood 42.8 % [facility] hemoglobin, blood 14.1 g/dL [facility] erythrocyte (RBC) count 4.50 10*6/mm3 [facility] leukocyte count, blood 7.2 10*3/mm3 [facility] anion gap, serum 10.3 [facility] estimated glomerular filtration rate 58 mL/min [facility] blood glucose, fasting 99 mg/dL [facility] calcium, serum 9.0 mg/dL [facility] creatinine, serum 1.28 mg/dL [facility] urea nitrogen, blood 26.5 mg/dL [facility] carbon dioxide, serum, total 27 mmol/L [facility] chloride, serum 104 mmol/L [facility] potassium, serum 4.3 mmol/L [facility] sodium, serum 137 mmol/L [facility] platelet count 239 10*3/uL [facility] red blood cell distribution width 13.4 % [facility] mean corpuscular hemoglobin concentration, RBC 33.4 g/dL [facility] mean corpuscular hemoglobin, RBC 32.3 pg [facility] mean corpuscular volume, RBC 96.8 fL [facility] hematocrit, blood 42.5 % [facility] hemoglobin, blood 14.2 g/dL [facility] erythrocyte (RBC) count 4.39 10*6/mm3 [facility] monocytes as percent of blood leukocytes 8.7 % [facility] lymphocytes as percent of blood leukocytes 23.0 % [facility] leukocyte count, blood 7.1 10*3/mm3 [facility] international normalized ratio (INR) 1.4 [facility] prothrombin time (patient) 13.8 s [facility] very low density lipoproteins 33 mg/dL [facility] triglyceride, serum, fasting 163 mg/dL [facility] HDL cholesterol, serum 39 mg/dL [facility] LDL cholesterol, serum 131 mg/dL [facility] cholesterol, serum 203 mg/dL [facility] thyroid stimulating hormone, serum 1.720 u[IU]/mL [facility] albumin/globulin ratio, serum 1.5 [facility] protein, total, serum 7.2 g/dL [facility] albumin, serum 4.3 g/dL [facility] bilirubin, serum, total 0.3 mg/dL [facility] alkaline phosphatase, serum 88 1/L [facility] alanine aminotransferase (SGPT), serum 18 1/L [facility] aspartate aminotransferase (SGOT), serum 16 1/L [facility] calcium, serum 9.6 mg/dL [facility] blood glucose, fasting 82 mg/dL [facility] creatinine, serum 1.25 mg/dL [facility] urea nitrogen, blood 19 mg/dL [facility] carbon dioxide, serum, total 23 mmol/L [facility] chloride, serum 103 mmol/L [facility] potassium, serum 4.1 mmol/L [facility] sodium, serum 141 mmol/L [facility] platelet count 255 10*3/uL [facility] red blood cell distribution width 14.3 % [facility] mean corpuscular hemoglobin concentration, RBC 33.7 g/dL [facility] mean corpuscular hemoglobin, RBC 31.6 pg [facility] mean corpuscular volume, RBC 94 fL [facility] hematocrit, blood 41.9 % [facility] hemoglobin, blood 14.1 g/dL [facility] erythrocyte (RBC) count 4.46 10*6/mm3 [facility] monocyte count, blood 0.6 10*3/mm3 [facility] lymphocyte count, blood 1.8 10*3/mm3 [facility] monocytes as percent of blood leukocytes 8 % [facility] lymphocytes as percent of blood leukocytes 23 % [facility] leukocyte count, blood 7.5 10*3/mm3 [facility] prostate specific antigen 3.63 ng/mL [facility] HISTORY OF MEDICATION USE Medication Status [...] C CAPSULE active once a day Danielle Micheal PLAVIX 75 MG ORAL TABLET completed ONE [...] f requency, days per week yes Leslie [place] caffeine use, averag e drinks per day 3 /d Leslie Raul passive cigarette sm hardik exposure yes Leslie [place] smoking, year quit 1998 Leslie Raul number of years as a smoker 10 years or m ore Leslie Raul smoking history, tot al pack/year 50 Leslie [place] cigarette use yes Leslie Raul smoking status [...] Danielle Strong die[place] drug use no Yaw Thcaker MD alcohol use no Yaw Thacker MD [...] passive cigarette sm hardik exposure yes Mal[facility] smoking, year quit 1998 [facility] number of years as a smoker 10 years or m [facility] Malgorzata Faustin smoking history, tot al pack/year 50 Malgorzata Block cigarette use yes [facility] smoking status Former smoker Malgorzata nguyễn smoking, [...] h [place] smoking history, tot al pack/year [address] Griffin Vishalacoarya smoking, year quit 1998 [facility] horn social history reviewed E&M reviewed Yaw [facility]acker MD [facility] sm hardik exposure yes Griffin [place] smoking history, tot al pack/year 1 pack per day for 54 years [place] smoking, year quit 2001 Griffin horn smoking [...] Date Observation Value Provider energy level yes [place] Tebid energy level yes [place] T[facility] energy level yes [place] T[facility] energy level yes [place] T[facility]id energy level yes [place] [facility] energy level yes [place] [facility]eb[facility] energy level yes [place] [facility] energy level yes [place] [facility] energy level yes [place] Tebid energy level yes [place] Tebid energy level yes [place] Tebid energy level yes [place] Tebid energy level yes [place] Tebid energy level yes [place] Tebid energy level yes [place] Tebid energy level yes [place] Tebid energy level yes [place] Tebid energy level yes [place] Tebid energy level yes [place] Tebid energy level yes [place] Tebid energy level yes Radha Tebid energy [...] level yes Radha Tebid energy level yes Radah Tebid energy level yes Radha Tebid energy [...] Payer name Policy type / Coverage type [place] red democrat ID [facility] MEDICARE ADVANTAGE (PPO) Other [id number] ADVANCE DIRECTIVES Name Date DISCUSSED - NO DECISION MADE TREATMENT PLAN Date Name Performer [id number],S, R epeat CTA scan in August. To discuss with PCP. Khushi Orlando NP [id number],S, N o dizziness. Continues on plavix. Khushi Orlando NP [id number],S, U nchanged. Khushi Orlando NP [id number],S, H is updated medication list for this problem includes: Atorvastatin 20 Mg Tablet (Atorvastatin) ..... Take 1 tablet by mouth every night Khushi Orlando NP [id number],S, N o chest pain. Khushi Orlando NP [id number],S, Yaw Thacker MD [id number],W,H e does not wish to do a PFT or ct so will refer him to the lung doctor Dr KELLOGG pulmonary consult. Yaw Thacker MD [id number],S, Yaw Thacker MD Cardiology: R epeat CTA [...] Thacker MD Cardiology:Recently in the hospital at [facility] with shortness of breath. Will [...] do not think this is progression of [place] CAD. Yaw Thacker MD Cardiology Follow up [...] severe Diffusion Defect Will refer patient to building carpenter helper. Yaw Thacker MD fu:PFT (01/10/2015) P ulmonary [...] 57%. Will schedule L/R cardiac cath at [facility] Yaw Thacker MD fu:Will do [...] (Atorvastatin calcium) ..... At Imdur 30 Mg [id number] (Isosorbide mononitrate) ..... One tablet daily Propranolol [...] calcium) ..... At hs Imdur 30 Mg [id number] (Isosorbide mononitrate) ..... One tablet daily Aspirin 81 Mg Tabs (Aspirin) ..... 1 tablet by mouth daily Orders: Vanna LAM ([id number]) Yaw Thacker MD : T he following medications were removed from the medication list: Propranolol Hcl 20 Mg Tabs (Propranolol hcl) ..... 1 tablet by mouth twice daily His updated medication list for this problem includes: Plavix 75 Mg Tabs (Clopidogrel bisulfate) ..... 1 tab by mouth daily Atorvastatin Calcium 20 Mg Tabs (Atorvastatin calcium) ..... At hs Imdur 30 Mg [id number] (Isosorbide mononitrate) ..... One tablet daily Aspirin [...] MD Follow-up Yaw Thacker MD Follow-up Yaw Thacekr MD Follow-up: T he following medications were removed from the medication list: Lipitor 20 Mg Tabs (Atorvastatin calcium) ..... One tab. daily His updated medication list for this problem includes: Plavix 75 Mg Tabs (Clopidogrel bisulfate) ..... 1 tab by mouth daily Atorvastatin Calcium 20 Mg Tabs (Atorvastatin calcium) ..... At hs Imdur 30 Mg [id number] (Isosorbide mononitrate) ..... One tablet daily Propranolol [...] calcium) ..... At hs Imdur 30 Mg [id number] (Isosorbide mononitrate) ..... 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 At Orders: C omplete Echo ([id number]) Yaw Thacker MD Follow-up, c/o chest pain and sh ortness of breath Yaw Thacker MD Follow-up, c/o chest pain and shortness of breath: H is updated medication list for this problem includes: Plavix 75 Mg Tabs (Clopidogrel bisulfate) ..... 1 tab by mouth daily Orders: E KG ([id number]) Yaw Thacker MD Follow-up, c/o chest pain [...] and thus i will do this at [facility] which has that facility Yaw Thacker [...] EF 78% which is within normal limits. [facility] (10/14/2010) C ardiac Cath: Normal left ventricular function. Normal left ventricular end diastolic pressure. 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 EF 60%. [facility] (11/05/2010) C ardiac Cath Comments: Successful stenting of the proximal RCA with a 3.5 x 15 Vision stent. [facility] (11/05/2010) C HOL: 203 (09/23/2010) [...] MR. Mild TR. EF 64%. RVSP 23mmg. [facility] (10/14/2010) Yaw Thacker MD routine [...] EF 78% which is within normal limits. [facility] (10/14/2010) C ardiac Cath: Normal left ventricular function. Normal left ventricular end diastolic pressure. 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 EF 60%. [facility] (11/05/2010) C ardiac Cath Comments: Successful stenting of the proximal RCA with a 3.5 x 15 Vision stent. [facility] (11/05/2010) h e will need another stress test but will do an adenosine myoview Yaw Thacker MD follow up:check the free testosterone and vit d levels. O rders: V ITAMIN D, 25-HYDROXY, LC/MS/MS (79615) O ther ([id number]) Yaw Thacker MD follow up: H is [...] RBC, INDIC ES, WBC, PLT) DLCO - 24389 FRC - 15837 FVC - 78643 STR - Adenosine Complete Echo Full PFT [...] completed EKG Yaw Thacker MD completed SNOMED-CT: 90258336 Physical Exam, Performed: Pulse Exam of Foot Yaw Thacker MD completed EKG Yaw Thacker MD completed SNOMED-CT: 125867909 012876 Current Medications Documented Yaw Thacker MD completed SNOMED-CT: 37644732 Physical Exam, Performed: Pulse Exam of Foot Yaw Thacker MD completed SNOMED-CT: 744626763 103314 Current Medications Documented Yaw Thacker MD completed SNOMED-CT: 38303923 Physical Exam, Performed: Pulse Exam of Foot Yaw Thacker MD completed SNOMED-CT: 429535297 638112 Current Medications Documented Yaw Thacker MD completed SNOMED-CT: 81586450 Physical Exam, Performed: Pulse Exam of Foot Yaw Thacker MD completed SNOMED-CT: 311126013 172526 Current Medications Documented Yaw Thacker MD completed Stress EKG Jeremiah Serrano MD completed Regadenoson, 4 units Michael stoner MD completed Cardiolite, 2 units Michael izquierdo MD completed SPECT Images Michael Knowles MD completed SNOMED-CT: 29481715 Physical Exam, Performed: Pulse Exam of Foot Yaw Thacker MD completed EKG Yaw Thacker MD completed SNOMED-CT: 329879102 979685 Current Medications Documented Yaw Thacker MD completed SNOMED-CT: 77623276 Physical Exam, Performed: Pulse Exam of Foot Yaw Thacker MD completed SNOMED-CT: 591499649 041517 Current Medications Documented Yaw Thacker MD completed SNOMED-CT: 39608348 Physical Exam, Performed: Pulse Exam of Foot Yaw Thacker MD completed SNOMED-CT: 795667949 326388 Current Medications Documented Yaw Thacker MD completed BLOOD COUNT HEMOGLOBIN Yaw Thacker MD completed FVC - 64921 Yaw Thacker MD complete d FRC - 26457 Yaw Thacker MD complete d DLCO - 83952 Yaw Thacker MD complet ed EKG Yaw Thacker MD completed DLCO - 93829 Chinmay Bell completed SVC - 58854 Chinmay Bell completed FVC - 47056 Chinmay Bell completed EKG Yaw Thacker MD completed EKG Yaw Thacker MD completed EKG Yaw Thacker MD completed EKG Yaw Thacker MD completed EKG Yaw Thackre MD completed
--- OUTSIDE RECORDS SUMMARY | 2024-10-12 18:09 | XMS_ITS | Clinical Summary ---
Author Organization [facility] Address [facility] [place] [address] Care Team Providers Care Painter And Paperhanger Apprentice Name Role Phone Unavailable Primary Care Provider [...]
--- NOTE | 2024-10-12 18:26 | ECG_ITS ---
Test Date: 2024-10-12 18:32:45 Measurements Intervals [place] Rate: 75 P: 22 OR: 172 QRS: 63 QRSD: 178 T: 12 QT: 402 QTc: 451 Interpretive Statements SINUS RHYTHM RIGHT BUNDLE BRANCH BLOCK [120+ ms QRS DURATION, UPRIGHT V1, 40+ ms S IN I/aVL/V4/V5/V6] ST DEPRESSION, CONSIDER SUBENDOCARDIAL INJURY [0.1+ mV ST DEPRESSION] ABNORMAL ECG Compared to ECG 05/29/2024 20:01:18 First degree AV block no longer present ST (T wave) deviation still present Electronically Signed On 10-13-2024 08:03:25 CDT by Angel Borjas M.D.
[2024-10-12 18:45] LABS: Hematocrit 40.9 % (42.0-52.0); Immature Platelet Fraction Pct 2.2 % (0.9-11.2); Mean Corpuscular HGB Conc 31.8 g/dl (32-36); Mean Corpuscular Hemoglobin 33.9 pg (26-34); Mean Corpuscular Volume 106.8 fl (80-100); Mean Platelet Volume 9.8 fl (7.4-10.4); Platelet Count Result 181 k/mm3 (150-375); Red Blood Count 3.83 M/mm3 (4.6-6.20); Red Cell Distribution Width 13.8 % (11.5-14.5); White Blood Count 11.1 K/mm3 (4.5-10.0)
[2024-10-12 18:55] LABS: INR 1.1; Prothrombin Time 14.8 Seconds (11.1-14.7)
[2024-10-12 18:56] LABS: Partial Thromboplastin Time 26.5 Seconds (22.3-36.8)
[2024-10-12 19:00] LABS: Alanine Aminotransferase 16 U/L (6-50); Alkaline Phosphatase 131 U/L (38-126); Anion Gap 13 mmol/L (4-12); Aspartate Amino Transferase 26 U/L (17-59); Bilirubin,Total 1.2 mg/dL (0.2-1.3); Blood Urea Nitrogen 22 mg/dL (9-20); Calcium 8.5 mg/dL (8.4-10.2); Carbon Dioxide 23 mmol/L (22-30); Chloride 102 mmol/L (98-107); Estimated CRCL calculation 42 ml/min; Estimated Glomerular Filt Rate 59; Glucose 91 mg/dL (65-110); Sodium 138 mmol/L (137-145)
[2024-10-12 19:05] LABS: Troponin I < 0.012 ng/mL (0.000-0.034)
[2024-10-12 19:07] LABS: CRP 18.7 mg/dL (<1.0)
[2024-10-12 19:19] LABS: Influenza A QL RT-PCR Negative (Negative); Influenza B QL RT-PCR Negative (Negative); RSV RNA, RT-PCR Negative (Negative); SARS-CoV-2 RNA PCR Negative (Negative)
--- NOTE | 2024-10-12 19:20 | PC.NURSE ---
Received report from JEAN CARLOS Slade for cont. of care. Pt AOx3 lying on stretcher, on 2L on oxygen via NC. Pt on cont. cardiac and oxygen monitoring.
[2024-10-12 19:32] LABS: Band Neutrophils Percent 4 % (0-6); Lymphocytes Absolute Manual 0.77 K/mm3 (1.1-4.5); Monocytes Absolute Manual 1.11 K/mm3 (0.1-0.90); Monocytes Percent Manual 10 % (3-9); Neutrophils Absolute Manual 9.21 K/mm3 (1.3-6.7); Neutrophils Percent Manual 79 % (46-73); Platelet Estimate Adequate (Adequate); Total Cells Counted 100
[2024-10-12 19:33] LABS: Hypochromasia 1+; Macrocytosis 1+ (NORMAL); Schistocytes None Seen
--- NOTE | 2024-10-12 20:03 | PC.NURSE ---
MD made aware elevated temp, refer to MAR for medication administration.
[2024-10-12] MEDS: SODIUM CHLORIDE 0.9% IV 1,000 ML 999 ML IV CONT (20:16)
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
[2024-10-12] MEDS: AZITHROMYCIN 500 MG/NS 250 ML 500 MG/250 ML BAG 250 MG IVPB (21:31)
--- NOTE | 2024-10-12 23:19 | ADMGEN ---
This patient, Rogerio Vivar, was admitted to Medical Room 349-01. Patient/family oriented to hospital policies and general routines including ID bracelet, bed and alarms, visiting hours, pain management, procedures, bathroom and other care routines, personal items, smoking policy, room service/diet, and visiting hours. Information on how to activate the Rapid Response Team has been discussed. Patient/Family are encouraged to report perceived risks to care and to ask questions if they do not understand what they are told or what they should do.
[2024-10-13] VITALS (11 sets, daily range): BP systolic 110–135; BP diastolic 45–72; PULSE 68–83; RESP 16–20; TEMP 36.2–36.6; O2SAT 93–98
[2024-10-13 00:54] LABS: MRSA (PCR) NOT DETECTED (NOT DETECTE)
[2024-10-13 05:32] LABS: Basophils Percent Auto 0.2 % (0.2-1.2); Eosinophils Percent Auto 0.1 % (0-4.4); Hematocrit 37.7 % (42.0-52.0); Hemoglobin 12.2 g/dL (14.0-18.0); Immature Granulocyte Absolute 0.03 K/mm3 (0.00-0.031); Immature Granulocyte Percent A 0.4 % (0-0.5); Lymphocytes Absolute Auto 0.91 K/mm3 (0.9-3.2); Lymphocytes Percent Auto 10.8 % (18.3-44.2); Mean Corpuscular HGB Conc 32.4 g/dl (32-36); Mean Corpuscular Hemoglobin 33.9 pg (26-34); Mean Corpuscular Volume 104.7 fl (80-100); Mean Platelet Volume 8.9 fl (7.4-10.4); Monocytes Absolute Auto 1.6 K/mm3 (0.1-0.6); Monocytes Percent Auto 18.4 % (2.6-8.5); Neutrophils Absolute Auto 5.9 K/mm3 (1.3-6.7); Neutrophils Percent Auto 70.1 % (45.5-73.1); Platelet Count Result 147 k/mm3 (150-375); Red Cell Distribution Width 13.6 % (11.5-14.5); White Blood Count 8.4 K/mm3 (4.5-10.0)
[2024-10-13 05:43] LABS: Anion Gap 11 mmol/L (4-12); Blood Urea Nitrogen 20 mg/dL (9-20); Calcium 8.3 mg/dL (8.4-10.2); Carbon Dioxide 24 mmol/L (22-30); Chloride 105 mmol/L (98-107); Estimated CRCL calculation 45 ml/min; Estimated Glomerular Filt Rate > 60; Glucose 86 mg/dL (65-110); Magnesium 2.1 mg/dL (1.6-2.3); Potassium 3.8 mmol/L (3.4-5.0); Sodium 140 mmol/L (137-145)
[2024-10-13] MEDS: IPRATROPIUM 0.5 MG/ALBUTEROL SULFATE 2.5 MG AMPUL.NEB 3 ML INHALATION ×3 (08:38→19:22)
[2024-10-13] MEDS: FLUTICASONE/SALMETEROL 115-21 MCG INHALER 1 PUFF 2 PUFF INHALATION ×2 (08:50→19:22)
[2024-10-13] MEDS: buPROPion HCL SR (12 HR) 150 MG TAB PO ×2 (09:31→21:00)
[2024-10-13] MEDS: ATORVASTATIN 20 MG TABLET PO (09:31)
[2024-10-13] MEDS: ASPIRIN 81 MG ENTERIC TABLET PO (09:31)
[2024-10-13] MEDS: ENOXAPARIN 40 MG/0.4 ML SYRINGE SUB-Q (09:31)
[2024-10-13] MEDS: PANTOPRAZOLE 40 MG TABLET PO ×2 (09:31→16:36)
[2024-10-13] MEDS: DOXAZOSIN MESYLATE 4 MG TABLET PO (09:32)
[2024-10-13] MEDS: guaiFENesin 12 HR 600 MG TABCR 1200 MG PO ×2 (09:32→20:59)
[2024-10-13] MEDS: BRIMONIDINE TARTRATE 0.2% OP SOLN 5 ML BTL 1 DROP RIGHT EYE (09:33)
[2024-10-13] MEDS: ISOSORBIDE MONONITRATE 30 MG TAB.ER.24H PO (09:34)
[2024-10-13] MEDS: TIMOLOL MALEATE 0.5% OP SOLN 5 ML BOTTLE 1 DROP RIGHT EYE (09:35)
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
[2024-10-13] MEDS: VANCOMYCIN 2,000 MG/NS 500 ML 2,000 MG/500 ML BAG 250 MG IVPB (16:36)
[2024-10-13] MEDS: AZITHROMYCIN 500 MG/NS 250 ML 500 MG/250 ML BAG 250 MG IVPB (20:59)
[2024-10-13] MEDS: GABAPENTIN 300 MG CAPSULE 600 MG PO (20:59)
[2024-10-13] MEDS: AMITRIPTYLINE HCL 10 MG TABLET PO (21:00)
[2024-10-13] MEDS: LATANOPROST 0.005% OP SOLN 2.5 ML BTL 1 DROP RIGHT EYE (21:03)
[2024-10-14] VITALS (11 sets, daily range): BP systolic 102–111; BP diastolic 46–59; PULSE 67–85; RESP 16–20; TEMP 36.2–36.6; O2SAT 96–97
[2024-10-14 05:46] LABS: Estimated CRCL calculation 50 ml/min; Estimated Glomerular Filt Rate > 60
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
[2024-10-14 08:56] LABS: Hematocrit 34.2 % (42.0-52.0); Hemoglobin 10.8 g/dL (14.0-18.0); Mean Corpuscular HGB Conc 31.6 g/dl (32-36); Mean Corpuscular Hemoglobin 33.4 pg (26-34); Mean Corpuscular Volume 105.9 fl (80-100); Mean Platelet Volume 9.8 fl (7.4-10.4); Platelet Count Result 169 k/mm3 (150-375); Red Blood Count 3.23 M/mm3 (4.6-6.20); Red Cell Distribution Width 13.7 % (11.5-14.5); White Blood Count 7.1 K/mm3 (4.5-10.0)
[2024-10-14 09:02] LABS: Alanine Aminotransferase 13 U/L (6-50); Alkaline Phosphatase 108 U/L (38-126); Anion Gap 5 mmol/L (4-12); Aspartate Amino Transferase 26 U/L (17-59); Bilirubin,Total 0.5 mg/dL (0.2-1.3); Blood Urea Nitrogen 16 mg/dL (9-20); Carbon Dioxide 28 mmol/L (22-30); Chloride 106 mmol/L (98-107); Estimated CRCL calculation 48 ml/min; Estimated Glomerular Filt Rate > 60; Glucose 87 mg/dL (65-110); Potassium 3.5 mmol/L (3.4-5.0); Sodium 139 mmol/L (137-145)
[2024-10-14] MEDS: IPRATROPIUM 0.5 MG/ALBUTEROL SULFATE 2.5 MG AMPUL.NEB 3 ML INHALATION ×3 (09:30→21:00)
[2024-10-14] MEDS: FLUTICASONE/SALMETEROL 115-21 MCG INHALER 1 PUFF 2 PUFF INHALATION ×2 (09:30→21:01)
[2024-10-14 09:50] LABS: Band Neutrophils Percent 3 % (0-6); Eosinophils Absolute Manual 0.07 K/mm3 (0.02-0.50); Eosinophils Percent Manual 1 % (0-4); Lymphocytes Absolute Manual 0.78 K/mm3 (1.1-4.5); Lymphocytes Percent Manual 11 % (18-44); Monocytes Absolute Manual 0.49 K/mm3 (0.1-0.90); Monocytes Percent Manual 7 % (3-9); Neutrophils Absolute Manual 5.75 K/mm3 (1.3-6.7); Neutrophils Percent Manual 78 % (46-73); Platelet Estimate Adequate (Adequate); Schistocytes None Seen; Total Cells Counted 100
[2024-10-14 09:51] LABS: Macrocytosis 1+ (NORMAL)
[2024-10-14] MEDS: guaiFENesin 12 HR 600 MG TABCR 1200 MG PO ×2 (10:07→20:41)
[2024-10-14] MEDS: ISOSORBIDE MONONITRATE 30 MG TAB.ER.24H PO (10:07)
[2024-10-14] MEDS: ATORVASTATIN 20 MG TABLET PO (10:07)
[2024-10-14] MEDS: PANTOPRAZOLE 40 MG TABLET PO ×2 (10:07→16:35)
[2024-10-14] MEDS: buPROPion HCL SR (12 HR) 150 MG TAB PO ×2 (10:07→20:41)
[2024-10-14] MEDS: DOXAZOSIN MESYLATE 4 MG TABLET PO (10:07)
[2024-10-14] MEDS: BRIMONIDINE TARTRATE 0.2% OP SOLN 5 ML BTL 1 DROP RIGHT EYE (10:08)
[2024-10-14] MEDS: TIMOLOL MALEATE 0.5% OP SOLN 5 ML BOTTLE 1 DROP RIGHT EYE (10:08)
[2024-10-14] MEDS: ASPIRIN 81 MG ENTERIC TABLET PO (10:11)
[2024-10-14] MEDS: VANCOMYCIN 1,500 MG/NS 500 ML 1,500 MG/500 ML BAG 250 MG IVPB (16:35)
[2024-10-14] MEDS: AZITHROMYCIN 500 MG/NS 250 ML 500 MG/250 ML BAG 250 MG IVPB (20:40)
[2024-10-14] MEDS: LATANOPROST 0.005% OP SOLN 2.5 ML BTL 1 DROP RIGHT EYE (20:41)
[2024-10-14] MEDS: GABAPENTIN 300 MG CAPSULE 600 MG PO (20:41)
[2024-10-14] MEDS: AMITRIPTYLINE HCL 10 MG TABLET PO (20:41)
[2024-10-15] VITALS (12 sets, daily range): BP systolic 102–123; BP diastolic 49–58; PULSE 62–84; RESP 16–20; TEMP 36.1–36.3; O2SAT 93–98
--- NOTE | 2024-10-15 | ECHO_ITS ---
Patient Info Name: Rogerio Vivar Age: 88 years : 1935 Gender: Male Ht: 72 in Wt: 164 lbs BSA: 1.94 m2 HR: 80 bpm BP: 111 / 46 mmHg Heart Rhythm: Sinus Rhythm Technical Quality: Fair Exam Date: 10/15/2024 3:33 PM Patient Status: I Admit Date: 10/13/2024 Exam Type: CA echo doppler color flow Complete two-dimensional, color flow and Doppler transthoracic echocardiogram is performed. Staff Referring Physician: Denisha Venegas [facility] Irrigation Worker: Tracey Law Attending Provider: Leti Bryan Summary 1. Left ventricular chamber dimension is normal. 2. Left ventricular systolic function is normal, estimated at 65-70. 3. There is mildly increased left ventricular wall thickness. 4. The left ventricular diastolic function is grade I diastolic dysfunction. 5. Right ventricular systolic function is normal. 6. There is mild mitral valve regurgitation. 7. There is mild tricuspid valve regurgitation. Left Ventricle Left ventricular chamber dimension is normal. Left ventricular systolic function is normal, estimated at 65-70. There is mildly increased left ventricular wall thickness. The left ventricular diastolic function is grade I diastolic dysfunction. Right Ventricle Right ventricular chamber dimension is normal. Right ventricular systolic function is normal. Left Atria Left atrial chamber dimension is normal. Right Atria Right atrial chamber dimension is normal. Atrial Septum Intact interatrial septum visualized by color flow imaging. Aortic Valve The aortic valve is probable trileaflet. There is no aortic valve stenosis. There is no aortic valve regurgitation. There is moderate aortic valve calcification. Pulmonic Valve The pulmonic valve is not well visualized. There is trace pulmonic regurgitation. Mitral Valve There is mild mitral valve regurgitation. Tricuspid Valve There is mild tricuspid valve regurgitation. Pericardium/Pleural The pericardium appears epicardial fat pad. There is no pericardial effusion. Inferior Vena Cava Normal inferior vena cava with >50% collapse upon inspiration consistent with normal right atrial pressure, 3 mmHg. Aorta The aortic root size at the sinus of Valsalva is normal. Left Ventricular Outflow Tract Name Value Normal LVOT 2D LVOT Diameter 2.0 cm LVOT Doppler LVOT Peak Velocity 94 cm/s LVOT Peak Gradient 4 mmHg LVOT Mean Gradient 2 mmHg LVOT VTI 18 cm LVOT VTI/AV VTI Ratio 0.5 LVOT Stroke Volume 61 ml LVOT CO 3.8 l/min LVOT CI 2.0 l/min/m2 Pulmonic Valve Name Value Normal RVOT Doppler RVOT Peak Velocity 74 cm/s RVOT Peak Gradient 2 mmHg PV Doppler PV Peak Velocity 102 cm/s PV Peak Gradient 4 mmHg Mitral Valve Name Value Normal MV Diastolic Function MV E Peak Velocity 77 cm/s MV A Peak Velocity 95 cm/s MV E/A 0.8 MV Decel Time (PW) 244 ms Tricuspid Valve Name Value Normal TV Regurgitation Doppler TR Peak Velocity 243 cm/s TR Peak Gradient 24 mmHg Estimated PAP/RSVP RA Pressure 3 mmHg <=5 PA Systolic Pressure 27 mmHg <36 RV Systolic Pressure 27 mmHg <36 TV Annular TDI TV Lateral Maria Eugenia s' Velocity 13.0 cm/s >=9.5 Aorta Name Value Normal Ascending Aorta Ao Root Diameter (MM) 3.1 cm Ao Root Diam Index (MM) 1.6 cm/m2 Aortic Valve Name Value Normal AV Doppler AV Peak Velocity 181 cm/s AV Peak Gradient 13 mmHg AV Mean Gradient 8 mmHg AV VTI 37 cm AV Area (Cont Eq VTI) 1.7 cm2 >=3.0 AV Area (Cont Eq Germán) 1.7 cm2 AV DI (Germán) 0.52 AV Regurgitation 2D LVOT Area 3.3 cm2 Ventricles Name Value Normal LV Dimensions 2D/MM IVS Diastolic Thickness (2D) 1.1 cm 0.6-1.0 LVID Diastole (2D) 4.4 cm 4.2-5.8 LVIW Diastolic Thickness (2D) 1.0 cm 0.6-1.0 LVID Systole (2D) 2.8 cm 2.5-4.0 LVOT Diameter 2.0 cm LV Mass (2D Cubed) 153.17 g 88.00-224.00 LV Mass Index (2D Cubed) 79 g/m2 49-115 Relative Wall Thickness (2D) 0.46 <=0.42 LV Fractional Shortening/Ejection Fraction 2D/MM LV Fractional Shortening (2D) 35 % 25-43 LV EF (2D Teichholz) 65 % LV Diastolic Volume (4C MOD) 56 ml LV EF (4C MOD) 69 % LV Diastolic Volume (2C MOD) 48 ml LV EF (2C MOD) 65 % LV Diastolic Volume (BP MOD) 53 ml 62-150 LV Diastolic Volume Index (BP MOD) 28 ml/m2 34-74 LV Systolic Volume (BP MOD) 17 ml 21-61 LV Systolic Volume Index (BP MOD) 9 ml/m2 11-31 LV EF (BP MOD) 67 % 52-72 LV Diastolic Length (4C) 8.1 cm LV Systolic Length (4C) 6.8 cm LV Stroke Volume (4C MOD) 39 ml Atria Name Value Normal LA Dimensions LA Dimension (MM) 4.4 cm 3.0-4.0 LA Volume (4C A-L) 54 ml LA Volume (BP A-L) 46 ml RA Dimensions RA Area (4C) 22.1 cm2 <=18.0 Report Signatures
[2024-10-15] MEDS: IPRATROPIUM 0.5 MG/ALBUTEROL SULFATE 2.5 MG AMPUL.NEB 3 ML INHALATION ×4 (02:51→20:09)
[2024-10-15 06:00] LABS: Basophils Percent Auto 0.3 % (0.2-1.2); Eosinophils Absolute Auto 0.1 K/mm3 (0-0.3); Eosinophils Percent Auto 1.6 % (0-4.4); Hematocrit 36.2 % (42.0-52.0); Hemoglobin 11.5 g/dL (14.0-18.0); Immature Granulocyte Absolute 0.05 K/mm3 (0.00-0.031); Immature Granulocyte Percent A 0.7 % (0-0.5); Lymphocytes Absolute Auto 0.99 K/mm3 (0.9-3.2); Lymphocytes Percent Auto 14.1 % (18.3-44.2); Mean Corpuscular HGB Conc 31.8 g/dl (32-36); Mean Corpuscular Hemoglobin 33.5 pg (26-34); Mean Corpuscular Volume 105.5 fl (80-100); Mean Platelet Volume 9.3 fl (7.4-10.4); Monocytes Percent Auto 14.6 % (2.6-8.5); Neutrophils Absolute Auto 4.8 K/mm3 (1.3-6.7); Neutrophils Percent Auto 68.7 % (45.5-73.1); Platelet Count Result 183 k/mm3 (150-375); Red Blood Count 3.43 M/mm3 (4.6-6.20); Red Cell Distribution Width 13.6 % (11.5-14.5)
[2024-10-15 06:05] LABS: Alanine Aminotransferase 18 U/L (6-50); Albumin Level 3.3 g/dL (3.5-5.1); Alkaline Phosphatase 115 U/L (38-126); Anion Gap 7 mmol/L (4-12); Aspartate Amino Transferase 30 U/L (17-59); Bilirubin,Total 0.5 mg/dL (0.2-1.3); Blood Urea Nitrogen 12 mg/dL (9-20); Calcium 8.3 mg/dL (8.4-10.2); Carbon Dioxide 28 mmol/L (22-30); Chloride 105 mmol/L (98-107); Estimated CRCL calculation 48 ml/min; Estimated Glomerular Filt Rate > 60; Glucose 95 mg/dL (65-110); Potassium 3.3 mmol/L (3.4-5.0); Sodium 140 mmol/L (137-145)
[2024-10-15] MEDS: FLUTICASONE/SALMETEROL 115-21 MCG INHALER 1 PUFF 2 PUFF INHALATION ×2 (08:16→20:09)
[2024-10-15] MEDS: ENOXAPARIN 40 MG/0.4 ML SYRINGE SUB-Q (09:57)
[2024-10-15] MEDS: ISOSORBIDE MONONITRATE 30 MG TAB.ER.24H PO (09:57)
[2024-10-15] MEDS: levoFLOXacin 750 MG TABLET PO (09:57)
[2024-10-15] MEDS: DOXAZOSIN MESYLATE 4 MG TABLET PO (09:57)
[2024-10-15] MEDS: BRIMONIDINE TARTRATE 0.2% OP SOLN 5 ML BTL 1 DROP RIGHT EYE ×2 (09:58→12:24)
[2024-10-15] MEDS: ASPIRIN 81 MG ENTERIC TABLET PO (09:58)
[2024-10-15] MEDS: LACTULOSE 20 GM/30 ML UDC PO (09:58)
[2024-10-15] MEDS: buPROPion HCL SR (12 HR) 150 MG TAB PO ×2 (09:58→20:43)
[2024-10-15] MEDS: ATORVASTATIN 20 MG TABLET PO (09:58)
[2024-10-15] MEDS: PANTOPRAZOLE 40 MG TABLET PO ×2 (09:58→17:40)
[2024-10-15] MEDS: guaiFENesin 12 HR 600 MG TABCR 1200 MG PO ×2 (09:58→20:43)
[2024-10-15] MEDS: TIMOLOL MALEATE 0.5% OP SOLN 5 ML BOTTLE 1 DROP RIGHT EYE ×2 (09:59→12:24)
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
[2024-10-15] MEDS: GABAPENTIN 300 MG CAPSULE 600 MG PO (20:43)
[2024-10-15] MEDS: AMITRIPTYLINE HCL 10 MG TABLET PO (20:43)
[2024-10-15] MEDS: LATANOPROST 0.005% OP SOLN 2.5 ML BTL 1 DROP RIGHT EYE (20:45)
[2024-10-15 23:19] LABS: Legionella pneumophila Ag Ur. NOT DETECTED
[2024-10-16] VITALS (9 sets, daily range): BP systolic 107–127; BP diastolic 52–55; PULSE 62–81; RESP 16–20; TEMP 36.1–37.4; O2SAT 95–100
[2024-10-16] MEDS: IPRATROPIUM 0.5 MG/ALBUTEROL SULFATE 2.5 MG AMPUL.NEB 3 ML INHALATION ×2 (02:18→13:45)
[2024-10-16 06:03] LABS: Basophils Percent Auto 0.2 % (0.2-1.2); Eosinophils Absolute Auto 0.1 K/mm3 (0-0.3); Eosinophils Percent Auto 1.2 % (0-4.4); Hematocrit 33.5 % (42.0-52.0); Hemoglobin 10.5 g/dL (14.0-18.0); Immature Granulocyte Absolute 0.06 K/mm3 (0.00-0.031); Lymphocytes Absolute Auto 0.96 K/mm3 (0.9-3.2); Lymphocytes Percent Auto 16.2 % (18.3-44.2); Mean Corpuscular HGB Conc 31.3 g/dl (32-36); Mean Corpuscular Hemoglobin 33.8 pg (26-34); Mean Corpuscular Volume 107.7 fl (80-100); Mean Platelet Volume 9.4 fl (7.4-10.4); Neutrophils Absolute Auto 3.8 K/mm3 (1.3-6.7); Neutrophils Percent Auto 64.4 % (45.5-73.1); Platelet Count Result 172 k/mm3 (150-375); Red Blood Count 3.11 M/mm3 (4.6-6.20); Red Cell Distribution Width 13.4 % (11.5-14.5); White Blood Count 5.9 K/mm3 (4.5-10.0)
[2024-10-16 06:10] LABS: Alanine Aminotransferase 17 U/L (6-50); Albumin Level 3.1 g/dL (3.5-5.1); Alkaline Phosphatase 101 U/L (38-126); Anion Gap 7 mmol/L (4-12); Aspartate Amino Transferase 26 U/L (17-59); Bilirubin,Total 0.5 mg/dL (0.2-1.3); Blood Urea Nitrogen 10 mg/dL (9-20); Calcium 8.2 mg/dL (8.4-10.2); Carbon Dioxide 27 mmol/L (22-30); Chloride 104 mmol/L (98-107); Estimated CRCL calculation 52 ml/min; Estimated Glomerular Filt Rate > 60; Glucose 90 mg/dL (65-110); Potassium 3.3 mmol/L (3.4-5.0); Sodium 138 mmol/L (137-145)
[2024-10-16] MEDS: ENOXAPARIN 40 MG/0.4 ML SYRINGE SUB-Q (09:23)
[2024-10-16] MEDS: ISOSORBIDE MONONITRATE 30 MG TAB.ER.24H PO (09:23)
[2024-10-16] MEDS: DOXAZOSIN MESYLATE 4 MG TABLET PO (09:23)
[2024-10-16] MEDS: LACTULOSE 20 GM/30 ML UDC PO (09:24)
[2024-10-16] MEDS: buPROPion HCL SR (12 HR) 150 MG TAB PO ×2 (09:24→20:54)
[2024-10-16] MEDS: guaiFENesin 12 HR 600 MG TABCR 1200 MG PO ×2 (09:24→20:54)
[2024-10-16] MEDS: TIMOLOL MALEATE 0.5% OP SOLN 5 ML BOTTLE 1 DROP RIGHT EYE ×2 (09:24→12:23)
[2024-10-16] MEDS: PANTOPRAZOLE 40 MG TABLET PO ×2 (09:24→17:32)
[2024-10-16] MEDS: BRIMONIDINE TARTRATE 0.2% OP SOLN 5 ML BTL 1 DROP RIGHT EYE ×2 (09:24→12:23)
[2024-10-16] MEDS: ASPIRIN 81 MG ENTERIC TABLET PO (09:24)
[2024-10-16] MEDS: ATORVASTATIN 20 MG TABLET PO (09:24)
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
--- NOTE | 2024-10-16 17:03 | PHAR ---
HOME MED VERIFIED COMBIGAN EYE DROPS 1 DROP RIGHT EYE BID
[2024-10-16 17:34] LABS: Mycoplasma IgM Antibody Titer. 895 U/mL
[2024-10-16] MEDS: GABAPENTIN 300 MG CAPSULE 600 MG PO (20:54)
[2024-10-16] MEDS: LATANOPROST 0.005% OP SOLN 2.5 ML BTL 1 DROP RIGHT EYE (20:54)
[2024-10-16] MEDS: AMITRIPTYLINE HCL 10 MG TABLET PO (20:54)
[2024-10-17] VITALS (9 sets, daily range): BP systolic 112–130; BP diastolic 48–62; PULSE 67–122; RESP 16–20; TEMP 35.9–36.3; O2SAT 90–100
[2024-10-17] MEDS: IPRATROPIUM 0.5 MG/ALBUTEROL SULFATE 2.5 MG AMPUL.NEB 3 ML INHALATION ×3 (01:16→20:31)
[2024-10-17 05:55] LABS: Basophils Percent Auto 0.3 % (0.2-1.2); Eosinophils Absolute Auto 0.1 K/mm3 (0-0.3); Eosinophils Percent Auto 1.5 % (0-4.4); Hematocrit 34.9 % (42.0-52.0); Hemoglobin 10.8 g/dL (14.0-18.0); Immature Granulocyte Absolute 0.06 K/mm3 (0.00-0.031); Lymphocytes Absolute Auto 1.06 K/mm3 (0.9-3.2); Lymphocytes Percent Auto 17.8 % (18.3-44.2); Mean Corpuscular HGB Conc 30.9 g/dl (32-36); Mean Corpuscular Hemoglobin 33.3 pg (26-34); Mean Corpuscular Volume 107.7 fl (80-100); Mean Platelet Volume 9.3 fl (7.4-10.4); Monocytes Absolute Auto 0.9 K/mm3 (0.1-0.6); Monocytes Percent Auto 14.4 % (2.6-8.5); Neutrophils Absolute Auto 3.9 K/mm3 (1.3-6.7); Platelet Count Result 192 k/mm3 (150-375); Red Blood Count 3.24 M/mm3 (4.6-6.20); Red Cell Distribution Width 13.3 % (11.5-14.5)
[2024-10-17 06:10] LABS: Alanine Aminotransferase 20 U/L (6-50); Albumin Level 3.1 g/dL (3.5-5.1); Alkaline Phosphatase 105 U/L (38-126); Anion Gap 5 mmol/L (4-12); Aspartate Amino Transferase 31 U/L (17-59); Bilirubin,Total 0.4 mg/dL (0.2-1.3); Blood Urea Nitrogen 13 mg/dL (9-20); Carbon Dioxide 29 mmol/L (22-30); Chloride 105 mmol/L (98-107); Estimated CRCL calculation 52 ml/min; Estimated Glomerular Filt Rate > 60; Glucose 90 mg/dL (65-110); Potassium 3.4 mmol/L (3.4-5.0); Sodium 139 mmol/L (137-145)
[2024-10-17 06:19] LABS: Macrocytosis 1+ (NORMAL); Platelet Estimate Adequate (Adequate); Schistocytes None Seen
[2024-10-17] MEDS: ISOSORBIDE MONONITRATE 30 MG TAB.ER.24H PO (08:40)
[2024-10-17] MEDS: BRIMONIDINE TIMOLOL 1 EACH RIGHT EYE ×2 (08:40→17:28)
[2024-10-17] MEDS: DOXAZOSIN MESYLATE 4 MG TABLET PO (08:40)
[2024-10-17] MEDS: levoFLOXacin 750 MG TABLET PO (08:40)
[2024-10-17] MEDS: PANTOPRAZOLE 40 MG TABLET PO ×2 (08:40→17:22)
[2024-10-17] MEDS: ATORVASTATIN 20 MG TABLET PO (08:41)
[2024-10-17] MEDS: ASPIRIN 81 MG ENTERIC TABLET PO (08:41)
[2024-10-17] MEDS: buPROPion HCL SR (12 HR) 150 MG TAB PO ×2 (08:41→20:49)
[2024-10-17] MEDS: guaiFENesin 12 HR 600 MG TABCR 1200 MG PO ×2 (08:41→20:49)
[2024-10-17] MEDS: ENOXAPARIN 40 MG/0.4 ML SYRINGE SUB-Q (08:46)
[2024-10-17] MEDS: FLUTICASONE/SALMETEROL 115-21 MCG INHALER 1 PUFF 2 PUFF INHALATION ×2 (09:02→20:31)
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
[2024-10-17] MEDS: AMITRIPTYLINE HCL 10 MG TABLET PO (20:49)
[2024-10-17] MEDS: LATANOPROST 0.005% OP SOLN 2.5 ML BTL 1 DROP RIGHT EYE (20:49)
[2024-10-17] MEDS: GABAPENTIN 300 MG CAPSULE 600 MG PO (20:49)
[2024-10-18] VITALS (7 sets, daily range): BP systolic 104–136; BP diastolic 42–70; PULSE 69–78; RESP 14–20; TEMP 36–36.3; O2SAT 91–100
[2024-10-18] MEDS: IPRATROPIUM 0.5 MG/ALBUTEROL SULFATE 2.5 MG AMPUL.NEB 3 ML INHALATION ×2 (01:44→08:58)
[2024-10-18 05:57] LABS: Basophils Percent Auto 0.3 % (0.2-1.2); Eosinophils Absolute Auto 0.1 K/mm3 (0-0.3); Eosinophils Percent Auto 1.7 % (0-4.4); Hematocrit 33.4 % (42.0-52.0); Hemoglobin 10.9 g/dL (14.0-18.0); Immature Granulocyte Absolute 0.07 K/mm3 (0.00-0.031); Immature Granulocyte Percent A 1.2 % (0-0.5); Lymphocytes Absolute Auto 1.09 K/mm3 (0.9-3.2); Lymphocytes Percent Auto 18.1 % (18.3-44.2); Mean Corpuscular HGB Conc 32.6 g/dl (32-36); Mean Corpuscular Hemoglobin 34.1 pg (26-34); Mean Corpuscular Volume 104.4 fl (80-100); Mean Platelet Volume 9.2 fl (7.4-10.4); Monocytes Absolute Auto 0.8 K/mm3 (0.1-0.6); Monocytes Percent Auto 12.9 % (2.6-8.5); Neutrophils Percent Auto 65.8 % (45.5-73.1); Platelet Count Result 206 k/mm3 (150-375); Red Cell Distribution Width 13.2 % (11.5-14.5)
[2024-10-18 06:06] LABS: Alanine Aminotransferase 21 U/L (6-50); Albumin Level 3.1 g/dL (3.5-5.1); Alkaline Phosphatase 104 U/L (38-126); Anion Gap 6 mmol/L (4-12); Aspartate Amino Transferase 29 U/L (17-59); Bilirubin,Total 0.4 mg/dL (0.2-1.3); Blood Urea Nitrogen 14 mg/dL (9-20); Calcium 8.2 mg/dL (8.4-10.2); Carbon Dioxide 28 mmol/L (22-30); Chloride 104 mmol/L (98-107); Estimated CRCL calculation 48 ml/min; Estimated Glomerular Filt Rate > 60; Glucose 88 mg/dL (65-110); Potassium 3.4 mmol/L (3.4-5.0); Sodium 138 mmol/L (137-145)
[2024-10-18] MEDS: ASPIRIN 81 MG ENTERIC TABLET PO (08:54)
[2024-10-18] MEDS: ISOSORBIDE MONONITRATE 30 MG TAB.ER.24H PO (08:54)
[2024-10-18] MEDS: PANTOPRAZOLE 40 MG TABLET PO (08:54)
[2024-10-18] MEDS: ATORVASTATIN 20 MG TABLET PO (08:54)
[2024-10-18] MEDS: levoFLOXacin 750 MG TABLET PO (08:54)
[2024-10-18] MEDS: guaiFENesin 12 HR 600 MG TABCR 1200 MG PO (08:54)
[2024-10-18] MEDS: DOXAZOSIN MESYLATE 4 MG TABLET PO (08:54)
[2024-10-18] MEDS: buPROPion HCL SR (12 HR) 150 MG TAB PO (08:54)
[2024-10-18] MEDS: BRIMONIDINE TIMOLOL 1 EACH RIGHT EYE (08:55)
[2024-10-18] MEDS: ENOXAPARIN 40 MG/0.4 ML SYRINGE SUB-Q (08:56)
[2024-10-18] MEDS: FLUTICASONE/SALMETEROL 115-21 MCG INHALER 1 PUFF 2 PUFF INHALATION (08:58)
--- NOTE | 2024-10-18 11:40 | P.DS_ITS ---
DS: Admitting Diagnosis Discharge Date 10/18/2024 Admitting Diagnosis Sick for 3 days, cough, fever, home 022L DS: Discharge Diagnosis Discharge Diagnosis (1) Pneumonia: Qualifiers: Laterality: left Lung location: lower lobe of lung Pneumonia type: due to unspecified organism Qualified Code(s): J18.9 - Pneumonia, unspecified organism Code(s): J18.9 - Pneumonia, unspecified organism Status: Acute (2) Chronic respiratory failure with hypoxia, on home oxygen therapy: Code(s): J96.11 - Chronic respiratory failure with hypoxia; Z99.81 - Dependence on supplemental oxygen Status: Acute (3) Emphysema/COPD: Code(s): J43.9 - Emphysema, unspecified Status: Acute (4) Hypertension: Code(s): I10 - Essential (primary) hypertension Status: Acute (5) Hyperlipidemia: Code(s): E78.5 - Hyperlipidemia, unspecified Status: Acute DS: Summary Hospital Course Hospital Course: ED work up: Vital signs on arrival include a temperature of 100.5?, blood pressure 123/50, pulse 70, respiratory 16, SpO2 95% on 2 L. labs were significant for a WBC count of 11.1, hemoglobin 13.0, MCV 106.8, BUN 22, creatinine 1.16, CRP 18.7. Respiratory panel was negative. Chest x-ray showed findings of left basilar pneumonia. He received a 1 L normal saline bolus, azithromycin 500 mg, and ceftriaxone [address] 10/13/24 13:08 IMPRESSION: 1. Stable appearance of chronic lung disease including emphysema, unilateral calcified left-sided pleural plaques, peripheral lower lung predominant chronic interstitial lung disease and scattered regions of multiple vessels and 4 mm pulmonary nodules, many with tree-in-bud pattern consistent with sequela of chronic infection. 10/12/24 blood cultures grew staphylococcus hominis and streptococcus mitis. 10/14 blood cultures no growth to date. 10/12/24 Sputum culture grew Haemophilus influenzae. Echocardiogram on 10/13/24 showed: Summary 1. Left ventricular chamber dimension is normal. 2. Left ventricular systolic function is normal, estimated at 65-70. 3. There is mildly increased left ventricular wall thickness. 4. The left ventricular diastolic function is grade I diastolic dysfunction. 5. Right ventricular systolic function is normal. 6. There is mild mitral valve regurgitation. 7. There is mild tricuspid valve regurgitation. Patient received PT/OT. Patient did not want to go to a rehab. Patient switched to oral antibiotics and breathing improved. Status at Discharge Functional status at discharge: uses cane/walker Overall status at discharge: patient is progressing back to baseline Time Spent with Patient Time attestation: Total time spent providing and/or coordinating discharge services: Time spent: Greater than 30 minutes Exam Const: General: comfortable and no acute distress Resp: Effort & Inspection: normal respiratory effort Auscultation: diminished lung sounds Cardio: Rate: regular rate Rhythm: regular rhythm GI: GI Palp: Yes Soft to palpation Auscultation: normal bowel sounds Extrem: General: no pedal edema Psych: Mental Status: mental status grossly normal Affect: normal affect DS: Data Data Completed and Pending Labs on day of discharge: Labs from last 24 hours 10/18/24 05:32 WBC 6.0 RBC 3.20 L Hgb 10.9 L Hct 33.4 L MCV 104.4 H MCH 34.1 H MCHC 32.6 RDW 13.2 Plt Count 206 MPV 9.2 Immature Gran % (Auto) 1.2 H Neut % (Auto) 65.8 Lymph % (Auto) 18.1 L [place] % (Auto) 12.9 H Eos % (Auto) 1.7 Baso % (Auto) 0.3 Lymph # (Auto) 1.09 [place] # (Auto) 0.8 H Eos # (Auto) 0.1 Baso # (Auto) 0.0 Abs Immat Gran (auto) 0.07 H Absolute Neuts (auto) 4.0 Absolute Nucleated RBC 0.000 Nucleated RBC % 0.0 Sodium 138 Potassium 3.4 Chloride 104 Carbon Dioxide 28 Anion Gap 6 BUN 14 Creatinine 1.00 Estim Creat Clear Calc 48 Estimated GFR > 60 Glucose 88 Calcium 8.2 L Total Bilirubin 0.4 AST 29 ALT 21 Alkaline Phosphatase 104 Total Protein 6.0 L Albumin 3.1 L Preliminary micro results at discharge 10/14/24 16:21 Blood Culture - Preliminary Blood 10/14/24 16:30 Blood Culture - Preliminary Blood Discharge Plan Discharge Attending physician on discharge: Vicenta Whalen Discharging Clinician: Cheri Ordoñez Anticipated Discharge Date/Time: 10/18/24 11:49 Patient Disposition: Home Activity: may shower and as tolerated Diet: heart healthy Discharge Instructions: * Use walker to ambulate. Avoid sudden movements to prevent falls. Rest as needed. Work each day on building up strength. * Take inhalers as prescribed. * Avoid sick contacts. * Report to provider if you develop a fever >101, sputum with color, or shortness of breath not improved with rest, inhalers, and oxygen. * Complete all doses of antibiotics. Thank you for entrusting [facility] with your healthcare! Patient Instructions: Antibiotic Form, Using Oxygen at Home (DC), COPD (Chronic Obstructive Pulmonary Disease) (DC), Pneumonia (DC) Patient Language: Yakut Stand Alone Forms: General Discharge Information Follow-up/Referrals: Randy,Irwin Black MD [Primary Care Provider] - 1 Week Discharge Medications: New guaifenesin [Mucus Relief ER] 600 mg Tablet Extended Release 12hr 1,200 mg PO Q12HR Qty: 28 0RF levofloxacin 750 mg tablet 750 mg PO DAILY Qty: 2 0RF Rx Instructions: Take next dose morning of 10/19/24. Continued lactulose 10 gram/15 mL solution 20 g PO DAILY Qty: 3785 0RF Patient Comments: TAKES ON A PRN BASIS amitriptyline 10 mg tablet 10 mg PO HS bupropion HCl 150 mg tablet sustained-release 12 hr 150 mg PO BID atorvastatin 20 mg tablet 20 mg PO DAILY isosorbide mononitrate 30 mg tablet extended release 24 hr 30 mg PO DAILY doxazosin 4 mg tablet 4 mg PO DAILY budesonide-formoterol [Symbicort] 160-4.5 mcg/actuation HFA aerosol inhaler 2 puff inhalation BID Aspir-81 81 mg PO DAILY latanoprost 0.005 % drops 1 drp RIGHT EYE HS albuterol sulfate 90 mcg/actuation HFA aerosol inhaler 2 puff INHALATION PRN PRN (Reason: Wheezing) brimonidine-timolol [Combigan] 0.2-0.5 % drops 1 drp RIGHT EYE .COMPLEX Rx Instructions: 1 drop into right eye at 0900 and 1200; omeprazole 40 mg capsule,delayed release(DR/EC) 40 mg PO DAILY gabapentin 600 mg tablet 600 mg PO HS Date of admission: 10/13/24 09:40 Primary Care Provider: Randy,Irwin Black Admitting Provider: Julianne Mendez Attending physician on admission: Leti Bryan Condition: Improved
== END 2024-10-18 15:17 | disposition home or self-care (01) | DRG 194 ==
LOC: ANHED 20:51 → ANH3MED 21:53
PROVIDERS: Physician Assistant; Admitting Provider Internal Medicine; Emergency Provider Emergency Medicine; PCP Internal Medicine; Visit Provider Nurse Practitioner Family
DX: J14 Pneumonia due to Hemophilus influenzae (principal); J44.0 Chronic obstructive pulmonary disease with (acute) lower respiratory infection; J96.11 Chronic respiratory failure with hypoxia; R78.81 Bacteremia; I10 Essential (primary) hypertension; I73.9 Peripheral vascular disease, unspecified; E78.5 Hyperlipidemia, unspecified; B95.7 Other staphylococcus as the cause of diseases classified elsewhere; K57.30 Diverticulosis of large intestine without perforation or abscess without bleeding; G47.30 Sleep apnea, unspecified; H40.9 Unspecified glaucoma; Z20.822 Contact with and (suspected) exposure to COVID-19; Z99.81 Dependence on supplemental oxygen; Z79.82 Long term (current) use of aspirin; Z87.891 Personal history of nicotine dependence
CPT/HCPCS: 36415; 71046; 71250; 80048; 80053; 82565; 83605; 83735; 84484; 85025; 85055; 85610; 85730; 86140; 86738; 87040; 87070; 87181; 87205; 87449; 87637; 87641; 87899; 93005; 93306; 94640; 94667; 94668; 96365; 96366; 96367; 96375; 97110; 97161; 97165; 97530; 97535; 99285; A9270; G0378; J0456; J0696; J1650; J3370; J7030

== ENCOUNTER 2025-03-01 17:06 | Inpatient (IN) | payer MEDICARE, SELFPAY ==
[2025-03-01] VITALS (12 sets, daily range): BP systolic 122–169; BP diastolic 58–128; PULSE 63–81; RESP 16–27; TEMP 36.8–37.2; O2SAT 92–96; BMI 21.7
--- NOTE | ~2025-03-01 | XR_ITS ---
Examination: XR chest 2V Clinical History: weakness Comparison: 10/12/2024 Technique: PA and Lateral Findings: Cardiomediastinal silhouette normal size and configuration. Calcified pleural plaques left lung as before. Lungs otherwise clear. No acute bony abnormality. IMPRESSION: 1. No acute cardiopulmonary findings. Reviewed, dictated and finalized at location R.
--- OUTSIDE RECORDS SUMMARY | 2025-03-01 17:09 | XMS_ITS | Clinical Summary ---
Author Organization [facility] Address Formerly [facility] [place] [address] Care Team Providers Care Product Trainer Name Role Phone Unavailable Primary Care Provider [...] COVID-19 Vaccine ( - 2023-2 5 season) 2025 Meningococcal B Vaccine Aged Out No l onger eligible based on patient's age to complete this topic Meningococcal Vaccine Aged Out No amber isaiah eligible based on patient's age to complete this topic RSV Immunizations Under 20 Months Aged Out No longer eligible based on patient's age to complete this topic
--- OUTSIDE RECORDS SUMMARY | 2025-03-01 17:09 | XMS_ITS | Clinical Summary ---
Author Organization [facility] Address [address] [place] [id number] Care Team Providers Care What Job Titles Mean Name Role Phone Angelo Mccloud MD Primary Care Provider [phone] Allergies No known active allergies Medications budesonide-formo [...] (12/16/2020): Added automatically from request for surgery [id number] CAD (coronary artery disease) 09/22/2020 Overview (09/22/2020): Added automatically from request for surgery [id number] SOB (shortness of breath) 09/22/2020 Overview (09/22/2020): Added automatically from request for surgery [id number] Surgical History Surgery Date Site/Laterality Comments CARDIAC [...] on file Legal Sex Male 5:45 AM [employer] Gender Identity Not on file Sexual Orientation [...] Pneumococcal vaccine 65+ (2 of 2 - PPSV23, PCV20, or PCV21) 02/20/2016 12/26/2015 Fall Risk Assessment 01/01/2022 01/01/2021 Influenza Vaccine (#1) 2025 03/25/2014, 2012 Medical Devices Implanted Type Area Pole Truck Driver Device Identifier Shelf Expiration Date Model / Serial / Lot [employer] X [id number] Resolute Sunray 3.5mm 2.1-2.7fr 26mm 140cm Rapid Exchange - [id number] Implanted:Qty: 1 on 09/29/2020 by Yaw Thacker MD at [facility] [employer] [id number] X / / Explanted Type Area Pole Truck Driver Device Identifier Shelf Expiration Date Model / Serial / Lot [employer] [id number] Inlay [place] 7fr 28cm Pusher Fluoro Marker Atraumatic Insertion Latex Free - [id number] Implanted:Qty: 1 on 01/01/2021 by Martin Alvarado MD at [facility] Explanted:Qty: 1 on 01/16/2021 Left: [employer] 06/26/2025 [id number] / / [id number] Insurance [facility] Address: [facility] [address] [place] [address] [facility] Address[address] [address] [place] [address] [facility] ADVANTAGE [facility] Address: [address] [address] [place] [address] Advance Directives For more information, please contact: [phone] * Full Code (Latest Code Status on File) Date Activated Date Inactivated Comments 09/29/2020 10:32 AM 10/01/2020 6:10 PM Care Teams What Job Titles Mean Relationship Specialty Start Date End Date Angelo Mccloud MD [address] [facility] [address] [place] [address] PCP - General 10/01/20
--- OUTSIDE RECORDS SUMMARY | 2025-03-01 17:09 | XMS_ITS | Data Portability ---
Author Organization [place] - [facility] [employer], Main Office Address [address] [place] [address] Assessment Encounter Date Assessment Date Assessment LastModified by Organization Details LastModified Time 10/29/2024 10/29/2024 I have reconciled the patient's medications post their discharge from inpatient facility. Not available 10/29/2024 15:09:19 Plan of Treatment Reminders Order Date Submit Date Provider Last Modified By Organization Details Last Modified Time Details Appointments Any 15 2024 03:30P M Irwin Padilla MD Not available Not available Not available Lab BMP, serum or plasma [id number] [place] [address] (Lab), [address] [place], [address], 01/29/2025 09:49:50 CBC w/ auto diff 2023 [facility] (Lab), [address] [place], [address], 03/20/2024 14:14:16 lipid panel, serum 2023 [facility] (Lab), [address] [place], [address], 03/20/2024 14:44:49 ferritin, serum or plasma 2023 [facility] (Lab), [address] [place], [address], 03/20/2024 15:20:47 iron + total iron-bind ing capacity (TIBC), serum 2023 [facility] (Lab), [address] [place], [address], 03/20/2024 14:37:48 vitamin D, 25-hydrox y, total, serum 2023 [facility] (Lab), [address] [place], [address], 03/20/2024 16:14:24 CMP, serum or plasma 2023 [facility] (Lab), [address] [place], [address], 03/20/2024 14:44:46 vitamin B12, serum 2023 [facility] (Lab), [address] [place], [address], 03/20/2024 15:59:44 Referral None recorded. Procedures None recorded. Surgeries None recorded. Imaging US, duplex, carotid artery - Please call patient to schedule. 2023 [facility] ([facility] Sched[facility]), [address] [place], [address], 03/26/2024 07:25:59 Medication Orders ketoconaz ole 2 % topical cream 2024 [facility], [address] [place] [address], [address], 10/29/2024 15:16:12 omeprazol e 40 mg capsule,d elayed release 2023 [facility], [address] [place] [address], [address], 03/12/2024 16:06:48 Patient TargetsNo targets recorded. Patient Instructions Encounter Date Encounter Id Patient Instructions Last Modified By Organization Details Last Modified Time 03/12/2024 [id number] dementia rating scale-2* Not available 03/13/2024 14:26:52 alcohol misuse* Not available 03/13/2024 14:26:52 depression screening* Not available 03/13/2024 14:26:52 Timed Up and Go test (TUG)* Not available 03/13/2024 14:26:52 multi-dimensiona l health assessment questionnaire* Not available 03/13/2024 14:26:53 advance care planning: care instructions Not available 03/13/2024 14:26:52 advance directiv es: care instructions Not available 03/13/2024 14:26:52 [place] Advance Directives Not available 03/13/2024 14:26:52 Personalized a lth Plan and Screening Recommendations Advance Directives - Do you have one? Yes You have indicated that you are capable of preparing your advance care directive Advance Directives - Do we have your advance directive on file in your health record? No, please bring in a copy at your earliest convenience Primary Prevention/Interven tion (prevents or decreases the chance of common diseases from occurring) Smoking Risk: Non Smoker Alcohol Misuse Screening: Negative Weight: Overweight Physical activity: Need more exercise/physical activity decrease sitting time to no more than 5hr/day Nutrition: Average Fall Risk (screened today): Intermediate Recommend regular use of cane or walker Vaccines Pneumococcal: Recommended today, but you have declined Influenza: Recommended today, but you have declined Chronic Disease Risks Stroke: Intermediate Risk Active diagnosis, Continue current treatment plan Heart Attack: Intermediate Risk Active diagnosis, Continue current treatment plan Clogging of the Arteries: Intermediate Risk Active diagnosis, Continue current treatment plan Diabetes: Low Risk I have no recommendations Secondary Prevention/Interven tion (detects treatable diseases before they may cause symptoms, disability, or ) Prostate Cancer Screening: No PSA screening necessary Colon Cancer Screening: No screening necessary Date Screening Last Performed: Eye Disease Screening: No Eye exam necessary Dementia Risk: Low I have no recommendations Depression Screening: Positive Active diagnosis, Continue current treatment plan [id number] Not available 03/13/2024 09:14:27 10/29/2024 [id number] Thank you for yo ur visit to our office today. We would like to request that you reach out to your referring or previous provider and request that they send us a Summary of Care in electronic form, so that we may have it on file in your medical record. At your visit, we had the medical records we needed to provide you with the best possible care; however, for insurance purposes, an electronic Summary of Care is beneficial. Thank you for your assistance in obtaining this information and we look forward to providing continued care to you. Please review your medication list from the Summary of Care for this visit. If there are any differences from what you are currently taking at home, please call us to discuss. Not available 10/29/2024 15:09:19 Homebound Status : Does not meet homebound status Required Home Health Services: none Durable Medical Equipment needed: oxygen Billing Guidelines CPT code 60585- Transitional Care Management services with moderate medical decision complexity ([id number]-[id number] visit within 14 days of discharge). CPT code 58413- Transitional Care Management services with high medical decision complexity ([id number]-md-[id number] visit within 7 days of discharge). Not available 10/29/2024 15:09:44 Reason for Referral None Reported. Results Created Date Observation Date Name Description Value Unit Range Abnormal Flag Note LastModifiedBy Organization Detail LastModifiedTime 10/03/1910/03/2023 COMPR EHENS LAZARO METAB OLIC PANEL sodium 140 mmol/ L 137-14 5 Not Available [facility] (Lab) [address] [place], [address], 10/03/2023 21:16:29 10/03/1910/03/2023 COMPR EHENS LAZARO METAB OLIC PANEL potassium 4.0 mmol/ L 3.5-5. 1 Not Available [facility] (Lab) [address] [place], [address], 10/03/2023 21:16:29 10/03/1910/03/2023 COMPR EHENS LAZARO METAB OLIC PANEL chloride 107 mmol/ L 98-107 Not Available [facility] (Lab) [address] [place], [address], 10/03/2023 21:16:29 10/03/19 24 10/03/2023 COMPR EHENS LAZARO METAB OLIC PANEL carbon dioxide 30 mmol/ L 22-30 Not Available [facility] (Lab) [address] [place], [address], 10/03/2023 21:16:29 10/03/19 24 10/03/2023 COMPR EHENS LAZARO METAB OLIC PANEL anion gap 7.0 mmol/ L 14-22 low Not Available [facility] (Lab) [address] [place], [address], 10/03/2023 21:16:29 10/03/19 24 10/03/2023 COMPR EHENS LAZARO METAB OLIC PANEL glucose 117 mg/dL 70-99 high Not Available [facility] (Lab) [address] [place], [address], 10/03/2023 21:16:29 10/03/19 24 10/03/2023 COMPR EHENS LAZARO METAB OLIC PANEL BUN 21 mg/dL 8-19 high Not Available [facility] (Lab) [address] [place], [address], 10/03/2023 21:16:29 10/03/19 24 10/03/2023 COMPR EHENS LAZARO METAB OLIC PANEL creatinine 1.12 mg/dL 0.66-1 .25 Not Available [facility] (Lab) [address] [place], [address], 10/03/2023 21:16:29 10/03/19 24 10/03/2023 COMPR EHENS LAZARO METAB OLIC PANEL GFR >60 Refer ence Range : Milfay ge GFR Healt hy Adult : >60 mL/mi n/1.7 3 m2 Chron ic Kidne y Disea se: 15-60 mL/mi n/1.7 3 m2 Kidne y Failu re: <15/m L/min /1.73 m2 www.n iddk. nih.g ov The MDRD study equat ion has not been valid ated in child pedro <18 years of age; pregn ant women ; the elder ly >85 years of age; or in some racia l or ethni c subgr oups, such as Hispa nics. Outsi de the valid ated jemal eters , estim ated GFR is less accur ate, requi ring clini diya judgm ent on a case- by-ca se basis . Clini diya inter preta tion for other races and ages must be made by the clini shaheed. The MDRD study equat ion has not been valid ated for the evalu ation of serum creat inine relat ed to nutri mark l statu s or medic ation usage . For perso ns <18 years of age, a pedia tric GFR calcu lator is avail able on the [facility] websi te: https :[email or web address] juárez.leeann [email or web address].o rg/pr ofess ional s/kdo qi/gf r_cal culat or Not Available [facility] (Lab) [address] [place], [address], 10/03/2023 21:16:29 10/03/19 24 10/03/2023 COMPR EHENS LAZARO METAB OLIC PANEL alkaline phosphatase 126 U/L 38-126 Not Available [facility] (Lab) [address] [place], [address], 10/03/2023 21:16:29 10/03/19 24 10/03/2023 COMPR EHENS LAZARO METAB OLIC PANEL alanine aminotransfe rase 15 U/L 0-50 Not Available [facility] (Lab) [address] [place], [address], 10/03/2023 21:16:29 10/03/19 24 10/03/2023 COMPR EHENS LAZARO METAB OLIC PANEL aspartate aminotransfe rase 21 U/L 15-46 Not Available [facility] (Lab) [address] [place], [address], 10/03/2023 21:16:29 10/03/19 24 10/03/2023 COMPR EHENS LAZARO METAB OLIC PANEL bilirubin, total 0.40 mg/dL 0.20-1 .30 Not Available [facility] (Lab) [address] [place], [address], 10/03/2023 21:16:29 10/03/19 24 10/03/2023 COMPR EHENS LAZARO METAB OLIC PANEL calcium 8.5 mg/dL 8.4-10 .2 Not Available [facility] (Lab) [address] [place], [address], 10/03/2023 21:16:29 10/03/19 24 10/03/2023 COMPR EHENS LAZARO METAB OLIC PANEL total protein 6.1 g/dL 6.3-8. 2 low Not Available [facility] (Lab) [address] [place], [address], 10/03/2023 21:16:29 10/03/19 24 10/03/2023 COMPR EHENS LAZARO METAB OLIC PANEL albumin 3.5 g/dL 3.0-4. 4 Not Available [facility] (Lab) [address] [place], [address], 10/03/2023 21:16:29 10/03/19 24 10/03/2023 COMPR EHENS LAZARO METAB OLIC PANEL globulin 2.6 g/dL 2.6-4. 2 Not Available [facility] (Lab) [address] [place], [address], 10/03/2023 21:16:29 10/03/19 24 10/03/2023 COMPR EHENS LAZARO METAB OLIC PANEL A/G ratio 1.3 ratio 1.0-2. 0 Not Available [facility] (Lab) [address] [place], [address], 10/03/2023 21:16:29 10/22/03/20/2024 CBC/C OMPLE TE BLD COUNT W/DIF F white blood cells 5.0 x10'3 /uL 4.2-10 .8 Not Available [facility] (Lab) [address] [place], [address], 03/20/2024 15:04:51 03/20/20 24 03/20/2024 CBC/C OMPLE TE BLD COUNT W/DIF F red blood cells 4.07 x10'6 /uL 4.10-5 .80 low Not Available [facility] (Lab) [address] [place], [address], 03/20/2024 15:04:51 03/20/2003/20/2024 CBC/C OMPLE TE BLD COUNT W/DIF F hemoglobin 14.3 g/dL 13.2-1 7.0 Not Available [facility] (Lab) [address] [place], [address], 03/20/2024 15:04:51 03/20/2003/20/2024 CBC/C OMPLE TE BLD COUNT W/DIF F hematocrit 43.0 % 39.3-5 0.0 Not Available [facility] (Lab) [address] [place], [address], 03/20/2024 15:04:51 03/20/2003/20/2024 CBC/C OMPLE TE BLD COUNT W/DIF F mean red cell volume 105.7 fL 80.0-9 7.0 high Not Available [facility] (Lab) [address] [place], [address], 03/20/2024 15:04:51 03/20/20 24 03/20/2024 CBC/C OMPLE TE BLD COUNT W/DIF F mean red cell hemoglobin 35.1 pg 27.0-3 3.0 high Not Available [facility] (Lab) [address] [place], [address], 03/20/2024 15:04:51 03/20/20 24 03/20/2024 CBC/C OMPLE TE BLD COUNT W/DIF F mean RBC HGB concentratio n 33.3 g/dL 31.0-3 6.0 Not Available [facility] (Lab) [address] [place], [address], 03/20/2024 15:04:51 03/20/2003/20/2024 CBC/C OMPLE TE BLD COUNT W/DIF F red cell distribution width 13.3 % 11.8-1 5.5 Not Available [facility] (Lab) [address] [place], [address], 03/20/2024 15:04:51 03/20/2003/20/2024 CBC/C OMPLE TE BLD COUNT W/DIF F platelets 194 x10'3 /uL 150-40 0 Not Available [facility] (Lab) [address] [place], [address], 03/20/2024 15:04:51 03/20/2003/20/2024 CBC/C OMPLE TE BLD COUNT W/DIF F mean platelet volume 9.6 fL 9.0-12 .4 Not Available [facility] (Lab) [address] [place], [address], 03/20/2024 15:04:51 03/20/2003/20/2024 CBC/C OMPLE TE BLD COUNT W/DIF F neutrophils 65.5 % 39.0-7 2.0 Not Available [facility] (Lab) [address] [place], [address], 03/20/2024 15:04:51 03/20/2003/20/2024 CBC/C OMPLE TE BLD COUNT W/DIF F lymphocytes 20.3 % 16.0-4 7.0 Not Available [facility] (Lab) [address] [place], [address], 03/20/2024 15:04:51 03/20/2003/20/2024 CBC/C OMPLE TE BLD COUNT W/DIF F monocytes 11.8 % 5.0-12 .0 Not Available [facility] (Lab) [address] [place], [address], 03/20/2024 15:04:51 03/20/2003/20/2024 CBC/C OMPLE TE BLD COUNT W/DIF F eosinophils 1.4 % 1.0-7. 0 Not Available [facility] (Lab) [address] [place], [address], 03/20/2024 15:04:51 03/20/2003/20/2024 CBC/C OMPLE TE BLD COUNT W/DIF F basophils 0.6 % 0.0-2. 0 Not Available [facility] (Lab) [address] [place], [address], 03/20/2024 15:04:51 03/20/2003/20/2024 CBC/C OMPLE TE BLD COUNT W/DIF F immature granulocytes 0.4 % 0.00-0 .50 Not Available [facility] (Lab) [address] [place], [address], 03/20/2024 15:04:51 03/20/2003/20/2024 CBC/C OMPLE TE BLD COUNT W/DIF F neutrophils, absolute count 3.26 x10'3 /uL 1.5-8. 0 Not Available [facility] (Lab) [address] [place], [address], 03/20/2024 15:04:51 03/20/2003/20/2024 CBC/C OMPLE TE BLD COUNT W/DIF F lymphocytes, absolute count 1.01 x10'3 /uL 1.07-3 .43 low Not Available [facility] (Lab) [address] [place], [address], 03/20/2024 15:04:51 03/20/20 24 03/20/2024 CBC/C OMPLE TE BLD COUNT W/DIF F monocytes, absolute count 0.59 x10'3 /uL 0.29-0 .99 Not Available [facility] (Lab) [address] [place], [address], 03/20/2024 15:04:51 03/20/2003/20/2024 CBC/C OMPLE TE BLD COUNT W/DIF F eosinophils, absolute count 0.07 x10'3 /uL 0.02-0 .53 Not Available [facility] (Lab) [address] [place], [address], 03/20/2024 15:04:51 03/20/20 24 03/20/2024 CBC/C OMPLE TE BLD COUNT W/DIF F basophils, absolute count 0.03 x10'3 /uL 0.01-0 .08 Not Available [facility] (Lab) [address] [place], [address], 03/20/2024 15:04:51 03/20/20 24 03/20/2024 CBC/C OMPLE TE BLD COUNT W/DIF F immature granulocytes ,absolute 0.02 x10'3 /uL 0.00-0 .05 Not Available [facility] (Lab) [address] [place], [address], 03/20/2024 15:04:51 03/20/20 24 03/20/2024 CBC/C OMPLE TE BLD COUNT W/DIF F nucleated red blood cells 0.0 % -0 Not Available [facility] (Lab) [address] [place], [address], 03/20/2024 15:04:51 03/20/20 24 03/20/2024 CBC/C OMPLE TE BLD COUNT W/DIF F NRBC# 0.00 x10'3 /uL Not Available [facility] (Lab) [address] [place], [address], 03/20/2024 15:04:51 03/20/2003/20/2024 CBC/C OMPLE TE BLD COUNT W/DIF F macro OCCASI ONAL Not Available [facility] (Lab) [address] [place], [address], 03/20/2024 15:04:51 03/20/2003/20/2024 IRON/ TIBC PANEL total iron binding capacity 320 mcg/d L 265-47 5 Not Available [facility] (Lab) [address] [place], [address], 03/20/2024 14:46:41 03/20/2003/20/2024 IRON/ TIBC PANEL % transferrin saturation 32 % 20-55 Not Available [facility] (Lab) [address] [place], [address], 03/20/2024 14:46:41 03/20/2003/20/2024 IRON/ TIBC PANEL unsaturated iron bind capacity 218 mcg/d L 126-38 2 Not Available [facility] (Lab) [address] [place], [address], 03/20/2024 14:46:41 03/20/2003/20/2024 IRON/ TIBC PANEL iron 102 mcg/d L 42-175 Not Available [facility] (Lab) [address] [place], [address], 03/20/2024 14:46:41 03/20/2003/20/2024 COMPR EHENS LAZARO METAB OLIC PANEL sodium 139 mmol/ L 137-14 5 Not Available [facility] (Lab) [address] [place], [address], 03/20/2024 14:44:45 03/20/2003/20/2024 COMPR EHENS LAZARO METAB OLIC PANEL potassium 4.7 mmol/ L 3.5-5. 1 Not Available [facility] (Lab) [address] [place], [address], 03/20/2024 14:44:45 03/20/2003/20/2024 COMPR EHENS LAZARO METAB OLIC PANEL chloride 103 mmol/ L 98-107 Not Available [facility] (Lab) [address] [place], [address], 03/20/2024 14:44:45 03/20/2003/20/2024 COMPR EHENS LAZARO METAB OLIC PANEL carbon dioxide 31 mmol/ L 22-30 high Not Available [facility] (Lab) [address] [place], [address], 03/20/2024 14:44:45 03/20/2003/20/2024 COMPR EHENS LAZARO METAB OLIC PANEL anion gap 9.7 mmol/ L 14-22 low Not Available [facility] (Lab) [address] [place], [address], 03/20/2024 14:44:45 03/20/2003/20/2024 COMPR EHENS LAZARO METAB OLIC PANEL glucose 102 mg/dL 70-99 high Not Available [facility] (Lab) [address] [place], [address], 03/20/2024 14:44:45 03/20/2003/20/2024 COMPR EHENS LAZARO METAB OLIC PANEL BUN 20 mg/dL 8-19 high Not Available [facility] (Lab) [address] [place], [address], 03/20/2024 14:44:45 03/20/20 24 03/20/2024 COMPR EHENS LAZARO METAB OLIC PANEL creatinine 1.24 mg/dL 0.66-1 .25 Not Available [facility] (Lab) [address] [place], [address], 03/20/2024 14:44:45 03/20/2003/20/2024 COMPR EHENS LAZARO METAB OLIC PANEL GFR 55 Refer ence Range : Milfay ge GFR Healt hy Adult : >60 mL/mi n/1.7 3 m2 Chron ic Kidne y Disea se: 15-60 mL/mi n/1.7 3 m2 Kidne y Failu re: <15/m L/min /1.73 m2 www.n iddk. nih.g ov The MDRD study equat ion has not been valid ated in child pedro <18 years of age; pregn ant women ; the elder ly >85 years of age; or in some racia l or ethni c subgr oups, such as Nino nics. Outsi de the valid ated jemal eters , estim ated GFR is less accur ate, requi ring clini diya judgm ent on a case- by-ca se basis . Clini diya inter preta tion for other races and ages must be made by the clini shaheed. The MDRD study equat ion has not been valid ated for the evalu ation of serum creat inine relat ed to nutri mark l statu s or medic ation usage . For perso ns <18 years of age, a pedia tric GFR calcu lator is avail able on the [facility] websi te: https :[email or web address] juárez.leeann [email or web address].o rg/pr ofess ional s/kdo qi/gf r_cal culat or Not Available [facility] (Lab) [address] [place], [address], 03/20/2024 14:44:45 03/20/2003/20/2024 COMPR EHENS LAZARO METAB OLIC PANEL alkaline phosphatase 112 U/L 38-126 Not Available [facility] (Lab) [address] [place], [address], 03/20/2024 14:44:45 03/20/20 24 03/20/2024 COMPR EHENS LAZARO METAB OLIC PANEL alanine aminotransfe rase 16 U/L 0-50 Not Available [facility] (Lab) [address] [place], [address], 03/20/2024 14:44:45 03/20/2003/20/2024 COMPR EHENS LAZARO METAB OLIC PANEL aspartate aminotransfe rase 22 U/L 15-46 Not Available [facility] (Lab) [address] [place], [address], 03/20/2024 14:44:45 03/20/2003/20/2024 COMPR EHENS LAZARO METAB OLIC PANEL bilirubin, total 0.70 mg/dL 0.20-1 .30 Not Available [facility] (Lab) [address] [place], [address], 03/20/2024 14:44:45 03/20/2003/20/2024 COMPR EHENS LAZARO METAB OLIC PANEL calcium 9.4 mg/dL 8.4-10 .2 Not Available [facility] (Lab) [address] [place], [address], 03/20/2024 14:44:45 03/20/2003/20/2024 COMPR EHENS LAZARO METAB OLIC PANEL total protein 6.2 g/dL 6.3-8. 2 low Not Available [facility] (Lab) [address] [place], [address], 03/20/2024 14:44:45 03/20/2003/20/2024 COMPR EHENS LAZARO METAB OLIC PANEL albumin 3.6 g/dL 3.0-4. 4 Not Available [facility] (Lab) [address] [place], [address], 03/20/2024 14:44:45 03/20/20 24 03/20/2024 COMPR EHENS LAZARO METAB OLIC PANEL globulin 2.6 g/dL 2.6-4. 2 Not Available [facility] (Lab) [address] [place], [address], 03/20/2024 14:44:45 03/20/2003/20/2024 COMPR EHENS LAZARO METAB OLIC PANEL A/G ratio 1.4 ratio 1.0-2. 0 Not Available [facility] (Lab) [address] [place], [address], 03/20/2024 14:44:45 03/20/2003/20/2024 LIPID PANEL cholesterol 146 mg/dL 140-19 9 NIH RAF NSUS RECOM MENDA TION FOR THELMA STERO L: ADULT CHILD LOW RISK: <200 <170 BORDE RLINE : <200- 239 ----- HIGH RISK: >240 >200 Not Available [facility] (Lab) [address] [place], [address], 03/20/2024 14:44:49 03/20/2003/20/2024 LIPID PANEL triglyceride s 134 mg/dL 0-150 NIH RAF NSUS REPOR T RECOM MENDA TION FOR TRIGL YCERI ED: ADULT CHILD LOW RISK: <150 ----- BODER LINE: 150-1 99 ----- HIGH RISK: >200 ----- Not Available [facility] (Lab) [address] [place], [address], 03/20/2024 14:44:49 03/20/20 24 03/20/2024 LIPID PANEL HDL cholesterol 40 mg/dL 40- Not Available [facility] (Lab) [address] [place], [address], 03/20/2024 14:44:49 03/20/2003/20/2024 LIPID PANEL LDL cholesterol, calculated 79 mg/dL 0-130 NIH RAF NSUS REPOR T RECOM MENDA TIONS FOR LDL: ADULT CHILD LOW RISK <130 <110 (OPTI MAL LDL) <100 ----- BORDE RLINE : 130-1 59 ----- HIGH RISK: >160 >130 A TRIGL YCERI DE RESUL T >400 INVAL IDATE S THE CALCU LATIO N FOR LDL FRACT IONAT ION - THE LDL RESUL T WILL NOT BE REPOR RENETTA. Not Available [facility] (Lab) [address] [place], [address], 03/20/2024 14:44:49 03/20/2003/20/2024 VITAM IN D 25-HY DROXY vd25oh 43.4 NG/mL 30-100 Vitam in D Statu s: Defic ient: <20 ng/mL Insuf ficie nt: 20-29 ng/mL Suffi cient : 30-10 0 ng/mL Not Available [facility] (Lab) [address] [place], [address], 03/20/2024 15:18:55 03/20/2003/20/2024 ANDRÉS TIN ferritin 55 NG/mL 17.9-4 64 Not Available [facility] (Lab) [address] [place], [address], 03/20/2024 15:20:47 03/20/2003/20/2024 VITAM IN B12 (KHOA ANTHONY ) vb12 463 pg/mL 239-93 1 Not Available [facility] (Lab) [address] [place], [address], 03/20/2024 15:59:44 03/26/2003/22/2024 US, millie x, carot id arter y No observ ation record ed. [email or web address] [facility] [address] [place], [address], 04/03/2024 15:48:38 05/31/19 25 05/31/2024 joel holbrook ow study No observ ation record ed. BARCODE Not Available 2024 18:06:29 05/31/19 25 05/29/2024 CT, chest + abdom en + pelvi s, w/wo contr ast No observ ation record ed. BARCODE Not Available 2024 18:06:29 Result Notes None recorded. 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 Not Available [facility] 3 12:48:57 Insomnia 326532898 Active Not Available [facility] 3 12:48:57 Gastroeso phageal reflux disease 013295803 Active Not Available [facility] 3 12:48:58 Glaucoma 05466646 Active Not Available [facility] 3 12:48:58 Headache 92169170 Completed Not Available [facility] 3 12:48:58 Ankle edema 94382193 Completed Not Available [facility] 3 12:48:58 Benign prostatic hyperplas ia 266791068 Active Not Available [facility] 3 12:48:58 Anemia 600337542 Active Not Available [facility] 3 12:48:58 Malaise and fatigue 262598150 Completed Not Available [facility] 3 12:48:58 Ureteric stone 47101859 Completed Not Available [facility] 3 12:48:58 Bronchiti s 02436814 Completed Not Available [facility] 3 12:48:58 Depressiv e disorder 72222017 Active Not Available [facility] 3 12:48:58 Sinusitis 98100044 Completed Not Available [facility] 3 12:48:58 Osteoarth ritis [id number] Active Not Available [facility] 3 12:48:59 Insect bite reaction [id number] Completed Not Available [facility] 3 12:48:59 Pain of shoulder region 25910019 Completed Not Available [facility] 3 12:48:59 Anxiety [id number] Active Not Available [facility] 3 12:48:59 Cough [id number] Completed Not Available [facility] 3 12:48:59 Hyperlipi demia [id number] Active Not Available [facility] 3 12:49:00 Sleep apnea 64057525 Active Not Available [facility] 3 12:49:00 Perniciou s anemia 57254028 Active Not Available [facility] 3 12:49:00 Pain in limb 10435020 Completed Not Available [facility] 3 12:49:00 Disorder of skin 55765133 Completed Not Available [facility] 3 12:49:00 Kidney stone 51380647 Active Not Available [facility] 3 12:49:01 Coronary atheroscl erosis 769479335 Active 2010 s/p stent Not Available [facility] 3 12:48:59 Prostate specific antigen outside reference range 502800044 Active 2018 Not Available [facility] 3 12:48:57 Solitary nodule of lung 521613125 Active 2020 Not Available [facility] 3 12:48:59 Coronary arteriosc lerosis 27184052 Active 2020 Not Available [facility] 3 12:48:59 Multiple nodules of lung 976144028 Active 2021 Not Available [facility] 3 12:48:59 COVID-19 178058182 Completed 202101/19/2022 Not Available [facility] 3 12:49:00 Abdominal pain 85591242 Completed 202107/09/2022 Not Available [facility] 3 12:48:57 Impacted cerumen in left ear 01478418632 40594 Active 2021 Not Available [facility] 3 12:48:57 Neuropath y 556560215 Active 2021 Not Available [facility] 3 12:48:58 Essential hypertens ion 96632484 Active 2022 Not Available [facility] 3 12:49:00 Essential tremor 563755231 Active 2022 Not Available [facility] 3 12:49:00 Jaw pain 750157878 Active 2022 Irwin Padilla MD [address], [place], [address] , [employer] [facility] 3 15:44:36 Interstit ial lung disease 591957876 Active 2022 Irwin Padilla MD [address], [place], [address] , [employer] [facility] 3 15:59:35 Gastroint estinal hemorrhag e 31621879 Active 2022 Irwin Padilla MD [address], [place], [address] , [employer] [facility] 3 14:27:05 Kidney disease 35048435 Active 2023 Irwin Padilla MD [address], [place], [address] , [employer] [facility] 4 15:56:39 Impacted cerumen of bilateral ears 84492938440 07990 Active 2023 Irwin Padilla MD [address], [place], [address] , [employer] [facility] 4 15:57:01 Unsteady when walking 27029878 Active 2023 Irwin Padilla MD [address], [place], [address] , [employer] [facility] 4 15:57:11 Rhinitis 15654388 Active 2023 Irwin Padilla MD [address], [place], [address] , [employer] - [facility] 4 16:49:00 Abnormal gait due to muscle weakness 056865565 Active 2023 Kusum Becker NP [address], [place], [address] , [facility] [employer] 4 16:35:15 Weakness present 969318483 Active 2023 Janeth Young MA [facility], [place] [facility] [employer] 4 16:59:09 Vitamin D deficienc y 48743992 Active 2023 Irwin Padilla MD [address], [place], [address] , [employer] 4 16:06:27 Carotid artery stenosis 26392884 Active 2023 Irwin Padilla MD [address], [place], [address] , [place] [facility] [employer] 4 16:10:26 Nausea 216845133 Active 2023 Kusum Becker NP [address], [place], [address] , [employer] 4 12:55:38 Community acquired pneumonia 272361283 Active 2024 Irwin Padilla MD [address], [place], [address] , [place] [facility] [employer] 5 15:08:17 Hypoxia 012824618 Active 2024 Irwin Padilla MD [address], [place], [address] , [facility] [employer] 5 15:08:39 Tinea cruris 405324820 Active 2024 Irwin Padilla MD [address], [place], [address] , [facility] [employer] 5 15:14:57 Notes:Some problems listed i n Document: #[id number] could not be added to this patient's chart. Please review this document and add these problems to the patient's chart manually as needed. Problem Notes None recorded. Procedures Surgical History Date Name Laterality Status Provider Name and Address Organization Details Recorded Time 10/30/19 Transitional_Care_ Management completed Irwin Padilla MD [address] [place] [address], [facility] [address], [place], [address], [employer] 10/29/2024 15:09:19 03/12/20 24 Medicare Wellness CPT Code, subsequent completed Leslie Fontana RN [employer] 03/13/2024 08:56:23 05/19/20 23 Transitional_Care_ Management completed HOLLIS Liu [employer] 05/19/2023 14:05:01 04/30/20 15 lithotripsy completed Not Available [facility] 07/28/2022 12:46:27 cholecystectomy completed Not Available [facility] 07/28/2022 12:46:27 other completed Not Available [facility] 07/28/2022 12:46:27 Excisions - Specify completed Not Available [facility] 07/28/2022 12:46:27 Genitourinary Surgery completed Not Available [facility] 07/28/2022 12:46:27 other completed Not Available [facility] 07/28/2022 12:46:27 Imaging Results None recorded. Procedure Notes None recorded. Medical Equipment None Reported. Allergies No known drug allergies Medications Name Sig Start Date Stop Date Status Note LastModified by Organization Details LastModified Time latanopro st 0.005 % eye drops INSTILL 1 DROP INTO EACH EYE AT BEDTIME active Not Available Not Available No t Available bupropion HCl SR 150 mg tablet,12 hr sustained -release Take 1 tablet by mouth twice daily 2024 active [facility] 10/29/24 ok to rf Not Available Not Available Not Available gabapenti n 600 mg tablet TAKE 1 TABLET BY MOUTH ONCE DAILY AT BEDTIME 2024 active [facility] 10/29/24 ok to rf Not Available Not Available Not Available doxycycli ne hyclate 100 mg capsule TAKE 1 CAPSULE BY MOUTH TWICE DAILY FOR 5 DAYS active Not Available Not Available No t Available atorvasta tin 20 mg tablet TAKE 1 TABLET BY MOUTH AT BEDTIME 2024 active [facility] 10/29/24 ok to rf Not Available Not Available Not Available azithromy stefan 250 mg tablet TAKE 1 TABLET BY MOUTH ONCE DAILY active Not Available Not Available No t Available ofloxacin 0.3 % eye drops 12/06 completed Not Available Not Available Not Available hydrocodo ne 5 mg-acetam inophen 325 mg tablet TAKE 1 TABLET BY MOUTH EVERY 6(SIX) HOURS NEEDED (FOR SEVERE PAIN NOT CONTROLL ED BY TYLENLOL ALONE OR IBUPROFE N) 03/22 completed Not Available Not Available Not Available prednison e 20 mg tablet 02/16 completed Not Available Not Available Not Available isosorbid e mononitra te ER 30 mg tablet,ex tended release 24 hr Take 1 tablet by mouth once daily 2024 active [facility]ANCO 10/29/24 ok to rf Not Available Not Available Not Available Ferrex 150 mg iron capsule TAKE 1 CAPSULE BY MOUTH ONCE DAILY 05/13 completed was started while he was in the hospital Not Available Not Available Not Available metronida zole 500 mg tablet Take 1 tablet every 8 hours by oral route. active Not Available Not Available No t Available clopidogr el 75 mg tablet TAKE 1 TABLET BY MOUTH ONCE DAILY 05/13 completed Not Available Not Available Not Available ciproflox acin 500 mg tablet Take 1 tablet twice a day by oral route for 7 days. 02/05 completed Not Available Not Available Not Available sulfameth oxazole 800 mg-trimet hoprim 160 mg tablet 08/24 completed Not Available Not Available Not Available omeprazol e 40 mg capsule,d elayed release Take 1 capsule by mouth once daily in the morning 2024 active [facility]ANCO 10/29/24 ok to rf Not Available Not Available Not Available cyclopent olate 1 % eye drops 12/06 completed Not Available Not Available Not Available famotidin e 20 mg tablet TAKE 1 TABLET BY MOUTH TWICE DAILY 05/13 completed Not Available Not Available Not Available prednisol one acetate 1 % eye drops,raoul pension 12/06 completed Not Available Not Available Not Available tamsulosi n 0.4 mg capsule TAKE 1 CAPSULE BY MOUTH NIGHTLY 03/22 completed Not Available Not Available Not Available amitripty line 10 mg tablet TAKE 1 TABLET BY MOUTH ONCE DAILY AT BEDTIME active Not Available Not Available No t Available phenazopy ridine 100 mg tablet TAKE 1 TABLET BY MOUTH THREE TIMES DAILY NEEDED FOR URINARY PAIN 03/22 completed Not Available Not Available Not Available cephalexi n 500 mg capsule 03/14 completed Not Available Not Available Not Available cyanocoba anthony (vit B-12) 1,000 mcg/mL injection solution Inject 1 mL every month by intramus cular route. active Not Available Not Available No t Available clotrimaz ole-betam ethasone 1 %-0.05 % topical cream APPLY TO THE AFFECTED 2 TIMES PER DAY 2013 active Not Available Not Available Not Avai lable polymyxin B sulfate 10,000 unit-trim ethoprim 1 mg/mL eye drops 03/14 completed Not Available Not Available Not Available docusate sodium 100 mg capsule TAKE 1 CAPSULE BY MOUTH ONCE DAILY 10/12 completed Not Available Not Available Not Available gabapenti n 300 mg capsule TAKE 1 CAPSULE BY MOUTH ONCE DAILY AT BEDTIME 05/13 completed Not Available Not Available Not Available omeprazol e 20 mg capsule,d elayed release TAKE 1 CAPSULE BY MOUTH ONCE DAILY active Not Available Not Available No t Available doxazosin 4 mg tablet Take 1 tablet by mouth once daily 2024 active BLANCO 10/29/24 NOV 04/24/25 ok to rf Not Available Not Available Not Available aspirin 81 mg chewable tablet Chew 1 tablet every day by oral route. 05/13 completed Not Available Not Available Not Available mupirocin 2 % topical ointment 11/26 completed Not Available Not Available Not Available levofloxa stefan 500 mg tablet Take 1 tablet every 24 hours by oral route for 7 days. active Not Available Not Available No t Available oxycodone -acetamin ophen 7.5 mg-325 mg tablet active Not Available Not Available Not Available levofloxa stefan 750 mg tablet TAKE 1 TABLET BY MOUTH ONCE DAILY. TAKE NEXT DOSE MORNING OF 10/19/24 active Not Available Not Available No t Available zolpidem 10 mg tablet TAKE ONE TABLET BY MOUTH AT BEDTIME NEEDED 07/06 completed Not Available Not Available Not Available methylpre dnisolone 4 mg tablets in a dose pack take as directed 10/15 completed Not Available Not Available Not Available propranol ol 20 mg tablet 04/09 completed Not Available Not Available Not Available ketoconaz ole 2 % topical cream APPLY 1 APPLICAT ION CREAM TOPICALL Y TO AFFECTED AREA ONCE DAILY active Not Available Not Available No t Available ondansetr on 4 mg disintegr ating tablet DISSOLVE 1 TABLET IN MOUTH EVERY 6 HOURS NEEDED active Not Available Not Available No t Available cefdinir 300 mg capsule TAKE 1 CAPSULE BY MOUTH EVERY 12 HOURS FOR 5 DAYS active Not Available Not Available No t Available fluticaso ne propionat e 50 mcg/actua tion nasal spray,raoul pension USE 2 SPRAY(S) IN EACH NOSTRIL AT BEDTIME active Not Available Not Available No t Available finasteri de 5 mg tablet Take 1 tablet every day by oral route. active Not Available Not Available No t Available loratadin e 10 mg tablet TAKE 1 TABLET BY MOUTH IN THE MORNING active Not Available Not Available No t Available Ventolin HFA 90 mcg/actua tion aerosol inhaler INHALE 2 PUFFS BY MOUTH EVERY 4 HOURS NEEDED FOR SHORTNES S OF BREATH active Not Available Not Available No t Available metoprolo l tartrate 25 mg tablet TAKE 1 TABLET BY MOUTH TWICE DAILY 10/23 completed CARDIOLO GY D/C Not Available Not Available Not Available duloxetin e 60 mg capsule,d elayed release TAKE 1 CAPSULE BY MOUTH ONCE DAILY 03/27 completed Not Available Not Available Not Available vitamin E QD 05/13 completed Not Available Not Available Not Available Niferex-1 50 TAKE 1 TABLET BY MOUTH ONCE A DAY 03/22 completed Not Available Not Available Not Available Vitamin D3 QD 05/13 completed Not Available Not Available Not Available multivita min 04/09 completed Not Available Not Available Not Available Alphagan P 0.1 % eye drops 12/06 completed Not Available Not Available Not Available Fish Oil 1,000 mg capsule daily 05/13 completed Not Available Not Available Not Available Symbicort 160 mcg-4.5 mcg/actua tion HFA aerosol inhaler Inhale 2 puffs by mouth twice daily 2024 active [facility] 10/29/24 ok to rf Not Available Not Available Not Available Combigan 0.2 %-0.5 % eye drops INSTILL 1 DROP INTO RIGHT EYE TWICE DAILY active Not Available Not Available No t Available Belsomra 10 mg tablet Take 1 tablet as needed by oral route at bedtime. 11/26 completed Not Available Not Available Not Available [employer] Ellipta 62.5 mcg/actua tion powder for inhalatio n INHALE 1 PUFF BY MOUTH ONCE DAILY active Not Available Not Available No t Available Jesstri Aerospher e 160 mcg-9mcg- 4.8mcg/ac tuation HFA aerosol inhaler Inhale 2 puffs twice a day by inhalati on route. 2022 active Not Available Not Available Not Avai lable Vitals Date Recorded Body height Body mass index (BMI) Body weight Body temperature Heart rate Oxygen saturation Oxygen saturation in Arterial blood by Pulse oximetry Systolic And Diastolic Provider Name and Address Organization Details Last Updated DateTime 5 176.53 cm 24.7 kg/m2 98805.7 g 97.8 [degF] 77 /min 95 % 95 % 130/68 mm[Hg] Katie tapia [facility] [employer] [facility] 5 16:09:24 Date Recorded Body height Body temperature Heart rate Oxygen saturation Oxygen saturation in Arterial blood by Pulse oximetry Systolic And Diastolic Provider Name and Address Organization Details Last Updated DateTime 4 176.53 cm 98.6 [degF] 56 /min 97 % 97 % 120/70 mm[Hg] Nuha Drake Adai [facility] [employer] [facility] 4 16:07:48 Date Recorded Body height Body mass index (BMI) Body weight Body temperature Oxygen saturation Oxygen saturation in Arterial blood by Pulse oximetry Heart rate Systolic And Diastolic Provider Name and Address Organization Details Last Updated DateTime 4 176.53 cm 24.7 kg/m2 91352.7 g 97.1 [degF] 94 % 94 % 67 /min 120/66 mm[Hg] Ofelia mckeon Adia [facility] [employer] [facility] 4 14:31:49 Date Recorded Body height Body mass index (BMI) Body weight Heart rate Oxygen saturation Oxygen saturation in Arterial blood by Pulse oximetry Body temperature Systolic And Diastolic Provider Name and Address Organization Details Last Updated DateTime 5 176.53 cm 23.3 kg/m2 43412.7 8 g 59 /min 94 % 94 % 97.4 [degF] 116/64 mm[Hg] HOLLIS Dean [facility] [employer] [facility] 5 14:37:42 Date Recorded Body height Body mass index (BMI) Body weight Body temperature Heart rate Oxygen saturation Oxygen saturation in Arterial blood by Pulse oximetry Systolic And Diastolic Provider Name and Address Organization Details Last Updated DateTime 4 176.53 cm 25.3 kg/m2 27170.0 7 g 97.4 [degF] 70 /min 97 % 97 % 124/60 mm[Hg] HOLLIS Dean [facility] [employer] [facility] 4 15:41:11 Social History Question Answer Notes LastModified by Organization Details LastModified Time Tobacco Smoking Status Former Smoker Leslie Fontana RN [facility], [facility] [employer] [facility] 03/12/2024 16:23:55 Do You Have An Advance Directive? No Not On Hand Paperwork Provided 03/12/2024 [email or web address] Information not available 03/12/2024 Are You Blind Or Do You Have Difficulty Seeing? Yes [email or web address] Information not available 03/12/2024 Is Blood Transfusion Acceptable In An Emergency? Yes [email or web address] Information not available 03/12/2024 What Is Your Level Of Caffeine Consumption? Occasional [id number] Information not available 07/28/2022 How Much Tobacco Do You Chew? None [id number] Information not available 07/28/2022 In The 14 Days Before Symptom Onset, Have You Had Close Contact With A Laboratory-conf ngoc ALTMAN-19 While That Case Was Ill? 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 REGULAR [id number] Information not available 07/28/2022 Which Illicit Or Recreational Drugs Have You Used? None [email or web address] [id number] Information not available 07/28/2022 What Is The Highest Grade Or Level Of School You Have Completed Or The Highest Degree You Have Received? [id number] [email or web address] Information not available 03/12/2024 How Many Days Of Moderate To Strenuous Exercise, Like A Brisk Walk, Did You Do In The Last 7 Days? 0 [email or web address] Information not available 03/12/2024 What Is The Fluoride Status Of Your Home? Fluoridated [email or web address] Information not available 03/12/2024 Do You Use Insect Repellent Routinely? No [email or web address] Information not available 03/12/2024 Where Do You Live? [facility] [email or web address] Information not available 03/12/2024 Presence Of Domestic Violence No [email or web address] Information not available 03/13/2024 Are You Able To Care For Yourself? No [email or web address] Information not available 03/13/2024 Are You Blind Or Do Yo Have Difficulty Seeing? Yes [email or web address] Information not available 03/13/2024 Are You Deaf Or Do You Have Serious Difficulty Hearing? No [email or web address] Information not available 03/13/2024 General Stress Level? Moderate [email or web address] Information not available 03/13/2024 Live Alone Of With Others? With Others [email or web address] Information not available 03/13/2024 Do You Have A Medical Power Of Invisible Braces Orthodontist? Yes [email or web address] Information not available 03/12/2024 What Was The Date Of Your Most Recent Tobacco Screening? 03/12/2024 [email or web address] Information not available 03/12/2024 How Many Children Do You Have? 2 [email or web address] Information not available 03/12/2024 Do You Have Any Pets? No [email or web address] Information not available 03/12/2024 Do You Use Protection During Sex? No [email or web address] Information not available 03/12/2024 What Is Your Relationship Status? [email or web address] Information not available 03/12/2024 Do You Use Your Seat Belt Or Car Seat Routinely? No [email or web address] Information not available 03/12/2024 Are You Sexually Active? Yes [email or web address] Information not available 03/12/2024 Do You Have Smoke And Carbon Monoxide Detectors In Your Home? Yes [email or web address] Information not available 03/12/2024 Are You Passively Exposed To Smoke? No [email or web address] Information not available 03/12/2024 Are There Any Smokers In Your House? No [email or web address] Information not available 03/12/2024 How Much Tobacco Do You Smoke? 1 PPD [email or web address] Information not available 03/12/2024 What Types Of Sporting Activities Do You Participate In? None [email or web address] Information not available 03/12/2024 Do You Use Sunscreen Routinely? No [email or web address] Information not available 03/12/2024 Have You Recently Traveled Abroad? No [email or web address] Information not available 03/12/2024 Do You Have Difficulty Walking Or Climbing Stairs? Yes [email or web address] Information not available 03/12/2024 Do You Have Any Dietary Restrictions? No [email or web address] Information not available 03/12/2024 Sex: Male Functional Status Question Answer Note LastModified by Organizat ion Details LastModified Time Do you use any illicit or recreational drugs? No [email or web address] Information not available 03/12/2024 What is your level of alcohol consumption? None [email or web address] Information not available 03/12/2024 Are you currently employed? No [email or web address] Information not available 03/12/2024 Do you have transportation difficulties? No [email or web address] Information not available 03/12/2024 Are you able to walk independently without assistance or assistive devices? YESASSIST [email or web address] Information not available 03/12/2024 Do you have difficulty doing errands alone? No [email or web address] Information not available 03/12/2024 Are you able to care for yourself independently? 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 No [email or web address] Information not available 03/12/2024 What is your exercise level? None [id number] Information not available 07/28/2022 Mental Status Question Answer Note LastModified by [employer] Details LastModified Time Do you feel stressed (tense, restless, nervous, or anxious, or unable to sleep at night)? [id number] [email or web address] Information not available 03/12/2024 Do you have difficulty concentrating, remembering or making decisions? No [email or web address] Information no t available 03/12/2024 Family History Nothing Reported Notes:ADOPTED Medical History Condition Response HEARTBURN / REFLUX Y HYPERTENSION Y HIGH CHOLESTEROL / HYPERLIPIDEMIA Y Immunizations Vaccine Type Date Status Note Provider Nam e and Address Organization Details Recorded Time Influenza, split virus, trivalent, preservative 3 completed Not Available [facility] 07/28/2022 12:52:30 Pneumococcal conjugate PCV 13 6 completed Not Available [facility] 07/28/2022 12:52:30 Influenza, split virus, trivalent, PF 4 completed Not Available [facility] 07/28/2022 12:52:30 Past Encounters Encounter ID Performer Location Encounter Start Date Encounter Closed Date Diagnosis/Indication Diagnosis SNOMED-CT Code Diagnosis ICD10 Code Diagnosis IMO Codes Diagnosis Note [id number] Irwin Pdailla MD [facility] Internal Med [address] [facility] [address] 10/23/2020 00:00:00 10/23/2020 17:56:07 [id number] Irwin Padilla MD Sergio_[facility] Internal Med [id number] [facility] [address] 11/04/2020 00:00:00 11/04/2020 15:34:58 [id number] MD MONSERRAT Varela_E[facility] Internal Med [address] [facility] [place] [address] 11/12/2020 00:00:00 11/12/2020 16:03:30 [id number] MD MONSERRAT Varela_E[facility] Internal Med [address] [facility] [place] [address] 03/09/2021 00:00:00 03/09/2021 15:24:21 [id number] Irwin Padilla MD Sergio_[facility] Internal Med [address] [facility] [address] 07/15/2021 00:00:00 07/15/2021 17:45:03 [id number] MD MONSERRAT Varela_[facility] Internal Med [address] [place] [address] 10/12/2021 00:00:00 10/12/2021 15:41:38 [id number] MD PATIENCE VarelaS_[facility] Internal Med [address] [facility] [address] 03/22/2022 00:00:00 03/22/2022 16:16:00 [id number] Irwin Padilla MD [facility] Internal Med [address] [facility] [place] [address] 07/12/2022 00:00:00 07/12/2022 15:37:51 [id number] Irwin Padilla MD [facility] Internal Med [facility] [address] [facility] [place] [address] 02/14/2023 15:12:54 02/14/2023 15:46:31 Jaw pain 790504728 R68.84 exam nl, sever pain on the jaw on coughing Coronary arteriosclerosis 65952158 I25.10 [id number] Irwin Padilla MD [facility] Internal [facility] [address] [facility] [address] 02/28/2023 15:04:02 02/28/2023 16:05:18 Essential hypertension 85354590 I10 under control Insomnia 701149086 G47.0 0 better with meds Hyperlipidemia 57212498 E78.5 labs good 04/20 Gastroesop hageal reflux disease 479275033 K21.9 better Depressive disorder 3548 9007 F32.A under control Coronary atherosclerosis 267980517 I25.10 no symptoms, Cobalamin deficiency 190 092490 E53.8 on oral Chronic ob structive pulmonary disease 92504630 J44.9 not under control, change to Breztri Benign pro static hyperplasia 484228153 N40.0 stable Anemia 788898999 D64.9 on iron pills , no more GI bleeding Multiple n odules of lung 606017316 R91.8 CT scan 04/20 Osteoarthritis 297322368 M19.90 OTC Sleep apnea 12445559 G47 .30 no CPAP Essential tremor 7569890 09 G25.0 not getting worse Adult heal th examination 210507120 Z00.00 Colonoscop y- 2PSA - 07/31/2018 , no more neededPneu movax- Has had bothFLU- DeclinedCO VID- Has had 1 vacc- J&J Interstiti al lung disease 990579268 J84.9 watch Long-term drug therapy 908254675 Z79.588 [id number] Irwin Padilla MD [facility] Internal Med [facility] [address] [place] [address] 05/19/2023 14:00:44 05/19/2023 14:48:11 Transition of care [id number] 105 Z75.8 Gastrointe stinal hemorrhage 18573907 K92.2 has stopped, diet discussed Anemia 551974023 D64.9 on iron pills bid [id number] Irwin Padilla MD [facility] Internal Med [address] [place] [address] 10/03/2023 15:12:28 10/03/2023 16:02:51 Essential hypertension 39536523 I10 under control Insomnia 530624652 G47.0 0 better with meds Hyperlipidemia 30831695 E78.5 under control Gastroesop hageal reflux disease 331855517 K21.9 better Depressive disorder 3548 9007 F32.A under control Coronary atherosclerosis 554264679 I25.10 no symptoms, Cobalamin deficiency 190 992944 E53.8 to take oral Chronic ob structive pulmonary disease 79657379 J44.9 under control Benign pro static hyperplasia 367953045 N40.0 stable Anemia 779665589 D64.9 on iron pills , no more GI bleeding Multiple n odules of lung 088218588 R91.8 CT scan 04/20 Osteoarthritis 506992810 M19.90 OTC Sleep apnea 18010162 G47 .30 no CPAP Essential tremor 6439825 09 G25.0 not getting worse Adult heal th examination 832971543 Z00.00 Colonoscop y- 2PSA - 07/31/2018 , no more neededPneu movax- Has had bothFLU- DeclinedCO VID- Has had 1 vacc- J&J Interstiti al lung disease 420752673 J84.9 watch Kidney disease 71506880 N08 advise dto drink more water Impacted c erumen of bilateral ears 2013023444 536873 H61.23 needs cleaning Unsteady when walking 22 188868 R26.89 wheel chair should help [id number] Irwin Padilla MD [facility] Internal Med [address] [facility] [address] 10/10/2023 15:53:22 10/10/2023 16:51:04 Rhinitis 61497569 J00 otc Impacted c erumen of bilateral ears 6911096505 985204 H61.23 cleaning done with water , TM and canal clear [id number] Irwin Padilla MD [facility] Internal Med [address] [place] [address] 10/28/2023 14:22:41 10/28/2023 14:56:52 Abnormal gait due to muscle weakness 187328848 M62.81 I performed a specialty face to face examinatio n for a power wheelchair . Mr. Vivar has mobility limitation s due to his history of neropathy and osteoarthr itis. He is also limited in his mobility by muscle weakness to his lower extremitie s. His mobility is limited by the muscle weakness and he is unable to stand and bear weight for walking very far distance. He is able to shift his weight and reposition as well as stand long enough to transfer from bed to chair and chair to commode. A motorized wheelchair will assist him in activities of daily living such as going to the dining room and kitchen for meal time, he will be able to go to the bathroom and bedroom for dressing, grooming and toileting. Mr. Vivar has weak upper and lower body extremitie s and is unable to use a cane, a walker, or an optimally- configured manual wheelchair . B ecause of the impaired strength and transfer ability he is unable to use a scooter. He is able and willing to use a power wheel chair. He has sufficient cognition, judgement, and vision in order to use a power wheelchair . He has family help available and his home is suitable for the power wheelchair . The power wheel chair is going to significan tly improve his ability to perform activities of daily living within his home. He is also at high risk of incontinen ce due to medication s for diuresis putting him at an increased risk for pressure ulcers. A wheel chair cushion will aid in prevention of skin breakdown and pressure sores. Tilt with power elevating leg rests will help to manage lower leg edema and facilitate transfers. Neuropathy 525583168 G62 .9 [id number] Irwin Padilla MD [facility] [place] [facility] [address] 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 F32.A under control Coronary atherosclerosis 921492122 I25.10 no symptoms, Cobalamin deficiency 190 486769 E53.8 on oral Chronic ob structive pulmonary disease 71857666 J44.9 under control Benign pro static hyperplasia 305378367 N40.0 stable Anemia 136778506 D64.9 on iron pills , no more GI bleeding Multiple n odules of lung 223507825 R91.8 CT scan 04/20 Osteoarthritis 789969950 M19.90 OTC Sleep apnea 61155777 G47 .30 no CPAP Essential tremor 8759518 09 G25.0 mild Adult heal th examination 780587449 Z00.00 Colonoscop y- 2PSA - 07/31/2018 , no more neededPneu movax- Has had bothFLU- Declined- 4COVID- Has had 1 vacc- J&J Interstiti al lung disease 518446330 J84.9 no symptoms Kidney disease 36932868 N08 advised to drink more water, check labs Unsteady when walking 22 268477 R26.89 taking precaution s Vitamin D deficiency 347 63704 E55.9 Carotid ar medardo stenosis 97500522 I65.29 on asa Screening for disorder 618395185 Z13.9 [id number] Irwin Padilla MD [facility] Internal [address] [facility] [address] 07/12/2024 15:55:10 07/12/2024 17:11:38 Essential hypertension 18292478 I10 under control Hyperlipidemia 58731742 E78.5 under control Gastroesop hageal reflux disease 755123630 K21.9 better Depressive disorder 3548 9007 F32.A under control with meds Coronary atherosclerosis 433091273 I25.10 no symptoms, Cobalamin deficiency 190 457913 E53.8 on oral, on hold Chronic ob structive pulmonary disease 83386873 J44.9 under control Benign pro static hyperplasia 208752301 N40.0 stable Anemia 479229126 D64.9 was on iron pills , Multiple n odules of lung 276664852 R91.8 CT scan 04/20 Osteoarthritis 578539793 M19.90 OTC Sleep apnea 81693759 G47 .30 no CPAP Essential tremor 8739589 09 G25.0 mild Adult heal th examination 664580275 Z00.00 Colonoscop y- 2PSA - 07/31/2018 , no more neededPneu movax- Has had bothFLU- Declined- OVID- Has had 1 vacc- J&J Interstiti al lung disease 957656676 J84.9 no symptoms Kidney disease 56812958 N08 advised to drink more water, Unsteady when walking 22 529975 R26.89 taking precaution s Vitamin D deficiency 347 78330 E55.9 otc Carotid ar medardo stenosis 68408322 I65.29 on asa [id number] Irwin Padilla MD [facility] Internal [address] [place] [address] 10/29/2024 14:32:19 10/29/2024 15:27:17 Community acquired pneumonia 253352892 J15.9 877976 stay active, keep taking mucinex Hypoxia 238764459 R09.02 77804 o2 prn Transition of care 31262 13643 105 Z75.8 Tinea cruris 821993973 B 35.6 49153 Health Concerns Section Related Observation LastModified by Organization Detai ls LastModified Time None Recorded Concern Status LastModified by Organization Details LastModified Time None Recorded Advance Directives Directive N: not on hand paperwork pro vided 03/12/2024 Payers Insurance Date Sequence Insurance Name Policy Number Policy Trimble Covered Member ID Trimble Member ID Guarantor Name 11/05/2024 1 [facility] (MEDICARE REPLACEMENT/A DVANTAGE - PPO) [id number] Rogerio Vivar [id number] Rogerio Vivar 10/29/2024 1 [employer] [id number] Rogerio Vivar [id number] Rogerio Vivar Notes Date Note Type Note Provider Name and Address Organization Details Recorded Time 10/10/2023 text/html patient present for ear cleaning. experiencing ear pressure, clogging, and some pain.Also c/o sinus drainage and cough Irwin Padilla MD [address], [place], [address], [employer] 10/10/2023 16:49:58 10/28/2023 text/html Pt is here today for an Order for a Wheel chair. He has leg weakness and feels he will benefit from a wheel chair to assist him in ADLs in the home and be able to participate in activities outside the home. Kusum Becker NP [address], [place], [address], [employer] 10/28/2023 16:44:59 03/12/2024 text/html Pt here today for his annual check-up.[facility] Exam HTN- under control with medsMeds-Isosorbide ER 30 mg qd COPD- inhalers helpMeds- Breztri bid, alb inhaler prn Insomnia-otc helps prn, melatonin B12 def- on oral b12 daily, levels are nl GERD- meds not helpingMeds- Omeprazole 20 mg qd Hyperlipidemia- on meds, labs dueMeds- Atorvastatin 20 mg qd Depression-better with meds, no side effectsMeds- Bupropion 150 mg bid CAD- s/p stents 2010, on asa, seeing cardiology (had a disagreement on the COVID vaccines) BPH- no longer seeing urology Sleep apnea- could not tolerate cpap Kidney disease- last cr was 1.17 GFR- 59Does not see Nephrology Neuropathy- seen neurology in the past, had NCS, amitriptyline did not help, using cane or walker to walk but unsteady and using wheel chair as neededMeds- Gabapentin 300 mg @ hs Osteoarthritis- on otc acetaminophen chronic headache- off and on, has seen neurology, had CT in 2019 , MRI in 2017 Carotid stenosis s/p endarterectomy.Meds - Clopidogrel 75mg daily Rhinitis- otc does not help, gets drainageMeds- Flonase nasal spray Essential tremor- not getting worse Irwin Padilla MD [address], [place], [address], [employer] 03/13/2024 14:27:08 07/12/2024 text/html Pt here today for his annual check-up.In april 2024 and June [address] [facility] for pneumonia he was admitted. ([place]ing [place] record from [place])On 06/20/24 went to the emergency for UTI and gave him antibioticon 06/28/24 he went to [place] for he felt like he had bowel blockage bc he was not able to have a bowl movement but they didnot find anything in the ct scans HTN- under control with medsMeds-Isosorbide ER 30 mg qd COPD- inhalers help, started on o2 at night in 05/22Meds- Breztri bid, alb inhaler prn Insomnia-otc helps prn, has tried melatonin B12 def- on oral b12 daily, levels are nl GERD- meds not helpingMeds- Omeprazole 20 mg qd Hyperlipidemia- on meds,Meds- Atorvastatin 20 mg qd Depression-better with meds, no side effects , mood is stableMeds- Bupropion 150 mg bid CAD- s/p stents 2010, on asa, seeing cardiology (had a disagreement on the COVID vaccines) BPH- no longer seeing urology Sleep apnea- could not tolerate cpap Kidney disease- last cr was 1.17 GFR- 59, then 55, will get labsDoes not see Nephrology Neuropathy- seen neurology in the past, had NCS, amitriptyline did not help, using cane or walker to walk but unsteady and using wheel chair as neededMeds- Gabapentin 300 mg @ hs Osteoarthritis- on otc acetaminophen chronic headache- off and on, has seen neurology, had CT in 2018 , MRI in 2016 Carotid stenosis s/p endarterectomy.Meds - Clopidogrel 75mg daily Rhinitis- otc does not help, gets drainageMeds- Flonase nasal spray Essential tremor- not getting worse Irwin Padilla MD [address] [facility], [facility] [address], [place], [address], [place] [employer] 07/12/2024 17:25:56 10/29/2024 text/html ROS as noted in the HPI Pt is here today for a hospital follow upRECORD REVIEWED AND DISCUSSEDHe was admitted to [place] on 10/13 and discharged on 10/18.Was diagnosed with pneumonia. Still Has SOB. O2 today is 94%Has lost 10 lbs, Appetite could be better, BUT IMPROVINGno more fever, no cptaking mucinex for coughHas a rash in his groin area due to having a depend on while in the hospital. Irwin Padilla MD [address] [place] [address] [address] [facility] [address], [place], [address], [place] [facility] 10/29/2024 15:17:46
--- NOTE | 2025-03-01 17:45 | ECG_ITS ---
Test Date: 2025-03-01 18:01:19 Measurements Intervals [place] Rate: 68 P: 69 CT: 240 QRS: 41 QRSD: 174 T: 15 QT: 410 QTc: 437 Interpretive Statements SINUS RHYTHM WITH FIRST DEGREE AV BLOCK RIGHT BUNDLE BRANCH BLOCK ST-T WAVE ABNORMALITY IN INFERIOR LEADS- CONSIDER ISCHEMIA BASELINE ARTIFACT- I, II, III, AVR, AVL, AVF, V4-V6 ABNORMAL ECG Compared to ECG 10/12/2024 18:32:45 NO SIGNIFICANT CHANGE Electronically Signed On 03-01-2025 19:21:12 CDT by Gerald Mo D.O.
[2025-03-01 18:06] LABS: Hematocrit 39.7 % (42.0-52.0); Hemoglobin 12.9 g/dL (14.0-18.0); Immature Granulocyte Percent A 0.4 % (0-0.5); Lymphocytes Absolute Auto 0.85 K/mm3 (0.9-3.2); Mean Corpuscular HGB Conc 32.5 g/dl (32-36); Mean Corpuscular Hemoglobin 34.4 pg (26-34); Mean Corpuscular Volume 105.9 fl (80-100); Nucleated Red Blood Cells Absolute Auto 0.000 K/mm3 (0.0-0.012); Nucleated Red Blood Cells Perc 0.0 % (0.0-0.2); Platelet Count Result 164 k/mm3 (150-375); Red Blood Count 3.75 M/mm3 (4.6-6.20); White Blood Count 7.2 K/mm3 (4.5-10.0)
[2025-03-01 18:18] LABS: Alanine Aminotransferase 16 U/L (6-50); Albumin Level 3.6 g/dL (3.5-5.1); Alkaline Phosphatase 125 U/L (38-126); Anion Gap 6 mmol/L (4-12); Aspartate Amino Transferase 22 U/L (17-59); Bilirubin,Total 0.6 mg/dL (0.2-1.3); Blood Urea Nitrogen 21 mg/dL (9-20); Calcium 8.9 mg/dL (8.4-10.2); Carbon Dioxide 28 mmol/L (22-30); Chloride 101 mmol/L (98-107); Estimated CRCL calculation 48 ml/min; Estimated Glomerular Filt Rate > 60; Glucose 88 mg/dL (65-110); Potassium 4.0 mmol/L (3.4-5.0); Sodium 135 mmol/L (137-145); Total Protein 6.9 g/dL (6.3-8.2)
[2025-03-01 18:19] LABS: Add Urine Microscopic? YES; Appearance Urine Turbid (Clear); Glucose Urine UA Negative (Negative); Leukocyte Esterase Ur 3+ LEU/UL (Negative); Nitrate Urine Positive (Negative); Non Pathogenic Casts 0-2; Specific Grav Ur 1.027 (1.001-1.035)
[2025-03-01 18:42] LABS: Influenza A QL RT-PCR Negative (Negative); Influenza B QL RT-PCR Negative (Negative); RSV RNA, RT-PCR Negative (Negative); SARS-CoV-2 RNA PCR Negative (Negative)
--- NOTE | 2025-03-01 18:51 | ED.GENADULT ---
HPI - General Adult General Chief complaint: Weakness Stated complaint: WEAKNESS FOR A MONTH Time Seen by Provider: 03/01/25 17:40 History of Present Illness HPI narrative: Patient is an 89-year-old male who presents ER for weakness. Progressive over last month. Over last couple days he has developed fever. Patient has dark colored urinary output. No cough. No chest pain or chest pressure. No vomiting or diarrhea. Related Data Home Medications ?Medication ?Instructions ?Recorded ?Confirmed ?Last Taken ?Type atorvastatin 20 mg tablet 20 mg PO DAILY 10/16/21 10/12/24 10/12/24 History budesonide-formoterol HFA 160 2 puff inhalation BID 10/16/21 10/12/24 10/12/24 History mcg-4.5 mcg/actuation aerosol inhaler (Symbicort) bupropion HCl 150 mg tablet,12 hr 150 mg PO BID 10/16/21 10/12/24 10/12/24 History sustained-release doxazosin 4 mg tablet 4 mg PO DAILY 10/16/21 10/12/24 10/12/24 History isosorbide mononitrate 30 mg 30 mg PO DAILY 10/16/21 10/12/24 10/12/24 History tablet,extended release 24 hr Aspir-81 81 mg PO DAILY 05/09/23 10/12/24 10/12/24 History albuterol sulfate 90 mcg/actuation 2 puff inhalation PRN PRN Wheezing 05/09/23 10/12/24 06/19/24 History aerosol inhaler brimonidine 0.2 %-timolol 0.5 % 1 drp RIGHT EYE .COMPLEX 05/09/23 10/12/24 10/12/24 09:29 History eye drops (Combigan) latanoprost 0.005 % eye drops 1 drp RIGHT EYE HS 05/09/23 10/12/24 10/11/24 History omeprazole 40 mg capsule,delayed 40 mg PO DAILY 05/25/24 10/12/24 10/12/24 History release gabapentin 600 mg tablet 600 mg PO HS 05/30/24 10/12/24 10/11/24 History amitriptyline 10 mg tablet 10 mg PO HS 10/12/24 10/12/24 10/11/24 History Allergies Allergy/AdvReac Type Severity Reaction Status Date / Time No Known Allergies Allergy Mild Verified 03/01/25 17:10 Review of Systems Review of Systems: All systems reviewed & are unremarkable except as noted in HPI and below Constitutional: Constitutional: Reports no additional constitutional complaints ENT: Reports system reviewed and no additional complaints, except as documented Cardiovascular: Cardiovascular: Reports no additional cardiovascular complaints Gastrointestinal: Gastrointestinal: Reports no additional gastrointestinal complaints Musculoskeletal: Musculoskeletal: Reports no additional musculoskeletal complaints PMFSH Past Medical History Medical History (Updated 03/01/25 @ 21:35 by Toni You MD) Hyperlipidemia Hypertension Chronic respiratory failure with hypoxia, on home oxygen therapy Peripheral arterial disease Glaucoma Hard of hearing Legally blind Diverticular hemorrhage (04/2023) Colon, diverticulosis Rectal bleeding Sleep apnea refuses CPAP Emphysema/COPD Surgical History Surgical History (Updated 10/12/24 @ 21:34 by Denisha Venegas PA-C) History of cataract extraction History of appendectomy History of carotid endarterectomy History of cholecystectomy History of cervical spinal surgery Family History Family History Other Adopted Social History Social History (Updated 10/12/24 @ 21:35 by Denisha Venegas PA-C) Social History: Healthcare power of pawn broker: Nina Hoa, friend ([phone]). Code status: Full code. Smoking packs per day: 1 Smoking cigarettes per day: 20.0 Years smoked: 25 Smoking pack-years: 25.00 Smoking status: Former smoker Alcohol intake: never Substance use: never Substance use type: does not use Do You Feel Safe in your Home?: Yes Lack of Transportation: No Lack of Food: Never True Current Housing: I Have Housing Concerned About Future Housing: No Difficulty Paying Gas/Electric Bills: No Difficulty Paying for Meds: No Currently Unemployed: No Education: Trade/Vocational Certificate Difficulty w/ Childcare or Family Care: No Living arrangements: alone Occupation/Education: retired Spiritual care concerns: No Exam Narrative: GENERAL: Chronically ill-appearing, well-nourished, and in no acute distress. Requires assistance sitting up HEAD: Normocephalic, atraumatic. ENT: Mucous membranes moist. NECK: Supple. CHEST: Clear to auscultation. No respiratory distress. HEART: Regular rate and rhythm. Normal peripheral pulses. ABDOMEN: Soft, nontender, nondistended. EXTREMITIES: Normal range of motion. No edema. SKIN: Warm, dry, no rash. NEURO: Alert and oriented x3. PSYCH: Normal mood and affect. Course Course Emergency Course: Patient family informed of results. Patient lives at home by himself and is likely not safe to be there by himself. Admit to the hospitalist service for IV antibiotics and discharge planning by PT. ceftriaxone given. Vital Signs Vital signs: Vital Signs Temperature 98.3 F 03/01/25 17:08 Pulse Rate 69 03/01/25 17:08 Respiratory Rate 18 03/01/25 17:08 Blood Pressure 122/86 03/01/25 17:08 Pulse Oximetry 95 03/01/25 17:08 Oxygen Delivery Room Air 03/01/25 17:08 Temperature 98.3 F 03/01/25 17:08 Pulse Rate 65 03/01/25 19:00 Respiratory Rate 19 03/01/25 19:00 Blood Pressure 130/65 03/01/25 19:00 Pulse Oximetry 94 03/01/25 19:00 Oxygen Delivery Room Air 03/01/25 18:36 Medical Decision Making Vital Signs Vital Signs: Vital Signs Temperature 98.3 F 03/01/25 17:08 Pulse Rate 69 03/01/25 17:08 Respiratory Rate 18 03/01/25 17:08 Blood Pressure 122/86 03/01/25 17:08 Pulse Oximetry 95 03/01/25 17:08 Oxygen Delivery Room Air 03/01/25 17:08 Temperature 98.3 F 03/01/25 17:08 Pulse Rate 65 03/01/25 19:00 Respiratory Rate 19 03/01/25 19:00 Blood Pressure 130/65 03/01/25 19:00 Pulse Oximetry 94 03/01/25 19:00 Oxygen Delivery Room Air 03/01/25 18:36 Lab Data 03/01/25 18:01 03/01/25 18:01 Labs: Lab Results 03/01/25 03/01/25 Range/Units 18:01 18:09 WBC 7.2 (4.5-10.0) K/mm3 RBC 3.75 L (4.6-6.20) M/mm3 Hgb 12.9 L (14.0-18.0) g/dL Hct 39.7 L (42.0-52.0) % MCV 105.9 H (80-100) fl MCH 34.4 H (26-34) pg MCHC 32.5 (32-36) g/dl RDW 13.6 (11.5-14.5) % Plt Count 164 (150-375) k/mm3 MPV 9.4 (7.4-10.4) fl Immature Gran % (Auto) 0.4 (0-0.5) % Neut % (Auto) 70.4 (45.5-73.1) % Lymph % (Auto) 11.8 L (18.3-44.2) % Nash % (Auto) 16.5 H (2.6-8.5) % Eos % (Auto) 0.6 (0-4.4) % Baso % (Auto) 0.3 (0.2-1.2) % Lymph # (Auto) 0.85 L (0.9-3.2) K/mm3 Nash # (Auto) 1.2 H (0.1-0.6) K/mm3 Eos # (Auto) 0.0 (0-0.3) K/mm3 Baso # (Auto) 0.0 (0.0-0.1) K/mm3 Abs Immat Gran (auto) 0.03 (0.00-0.031) K/mm3 Absolute Neuts (auto) 5.1 (1.3-6.7) K/mm3 Absolute Nucleated RBC 0.000 (0.0-0.012) K/mm3 Nucleated RBC % 0.0 (0.0-0.2) % Sodium 135 L (137-145) mmol/L Potassium 4.0 (3.4-5.0) mmol/L Chloride 101 (98-107) mmol/L Carbon Dioxide 28 (22-30) mmol/L Anion Gap 6 (4-12) mmol/L BUN 21 H (9-20) mg/dL Creatinine 1.02 (0.7-1.3) mg/dL Estim Creat Clear Calc 48 ml/min Estimated GFR > 60 (59 - ) Glucose 88 (65-110) mg/dL Calcium 8.9 (8.4-10.2) mg/dL Total Bilirubin 0.6 (0.2-1.3) mg/dL AST 22 (17-59) U/L ALT 16 (6-50) U/L Alkaline Phosphatase 125 (38-126) U/L Total Protein 6.9 (6.3-8.2) g/dL Albumin 3.6 (3.5-5.1) g/dL Urine Color Yellow (Yellow) Urine Appearance Turbid H (Clear) Urine pH 6.0 (5.0-9.0) Ur Specific [place] 1.027 (1.001-1.035) Urine Protein 1+ H (Negative) mg/dL Urine Glucose (UA) Negative (Negative) mg/dL Urine Ketones 1+ H (Negative) mg/dL Ur Blood (Man) 1+ H (Negative) Urine Nitrate Positive H (Negative) Urine Bilirubin Negative (Negative) Urine Urobilinogen 2.0 H (<2.0) mg/dL Leukocyte Esterase Rfl 3+ H (Negative) ROWAN/UL Urine RBC 0-2 (0-2) /hpf Urine WBC >100 H (0-3) /hpf Ur Squamous Epith Cells None seen (Few) /hpf Urine Bacteria 4+ /hpf Urine Casts 0-2 Influenza A (RT-PCR) Negative (Negative) Influenza B (RT-PCR) Negative (Negative) RSV (RT-PCR) Negative (Negative) SARS-CoV-2 RNA (RT-PCR) Negative (Negative) Imaging Data Radiologist's impression: ITS Impressions Chest X-Ray 03/01/25 18:27 IMPRESSION: 1. No acute cardiopulmonary findings. ECG Data EKG #1: ECG completion date: 03/01/25 ECG completion time: 18:01 EKG Interpretation: normal rate (68), sinus rhythm, non-specific ST changes, widened QRS and normal QT Discharge Plan Discharge Clinical Impression: Acute UTI Patient Disposition: Home Condition: Stable
[2025-03-01] MEDS: cefTRIAXone 1 GM in SODIUM CHLORIDE 0.9% IV 50 ML 100 ML IVPB (20:18)
--- NOTE | 2025-03-01 21:13 | PC.NURSE ---
Attempted to call report to floor. Floor stated nurse was in room and asked for them to call
--- NOTE | 2025-03-01 21:48 | ADMGEN ---
This patient, Rogerio Vivar, was admitted to Medical Room 258-01. Patient/family oriented to hospital policies and general routines including ID bracelet, bed and alarms, visiting hours, pain management, procedures, bathroom and other care routines, personal items, smoking policy, room service/diet, and visiting hours. Information on how to activate the Rapid Response Team has been discussed. Patient/Family are encouraged to report perceived risks to care and to ask questions if they do not understand what they are told or what they should do.
--- NOTE | 2025-03-01 22:28 | PM.IMHP ---
H&P: HPI History of Present Illness Date/Time: 03/01/25 22:28 Chief Complaint: Weakness Narrative: This is an 89-year-old male patient who is very hard of hearing. He has a history of hypertension and hyperlipidemia. He has developed progressive weakness over the past month. He self reports of fever over the last couple days. He denies any nausea vomiting diarrhea. He denies any chest pain or chest pressure. He stated that his urine is darker than normal. He denies any cough. His H&H is 12.9 and 39.7 which is above his baseline. Sodium is slightly low at 135. Urine is turbid 1+ urine protein, urine ketones 1+, urine blood 1+, nitrate positive, leukocyte esterase 3+, and wbc's greater than 100 in the urine. He was negative for influenza a and B, RSV and COVID. The patient was given Zofran, Vicodin, and Rocephin in the emergency room. The patient is being admitted to observation status on the date of service of 03/01/2025. Review of Systems Constitutional: Constitutional: Reports as per HPI and Reports no additional constitutional complaints Eyes: Eyes: Reports as per HPI and Reports no additional eye complaints ENT: Reports no additional ear, nose, mouth, and throat complaints and Reports Normal hearing present Cardiovascular: Cardiovascular: Reports no additional cardiovascular complaints Respiratory: Respiratory: Reports as per HPI and Reports no additional respiratory complaints Gastrointestinal: Gastrointestinal: Reports as per HPI and Reports no additional gastrointestinal complaints Musculoskeletal: Musculoskeletal: Reports no additional musculoskeletal complaints Integumentary/Breasts: Skin/Breast: Reports system reviewed and no additional complaints, except as docu Neurologic: Reports no additional neurologic complaints and Reports Normal hearing present Psychiatric: Psychiatric: Reports no additional psychiatric complaints and Reports as per HPI Hematologic/Lymphatic: Hematologic/Lymphatic: Reports no additional hematologic/lymphatic complaints Allergic/Immunologic: Allergic/Immunologic: Reports no additional allergic/immunologic complaints [facility] Past Medical History Medical History (Updated 03/02/25 @ 00:35 by Cheri Ferguson APRN) Anemia CAD (coronary artery disease) Hyperlipidemia Hypertension Chronic respiratory failure with hypoxia, on home oxygen therapy Chronically on oxygen at 2 L per nasal cannula. Peripheral arterial disease Glaucoma Hard of hearing Legally blind Diverticular hemorrhage (04/2023) Colon, diverticulosis Rectal bleeding Sleep apnea refuses CPAP Emphysema/COPD Surgical History Surgical History (Updated 03/02/25 @ 00:12 by Cheri Ferguson APRN) History of implantation of penile prosthesis H/O heart artery stent X4 History of cataract extraction History of appendectomy History of carotid endarterectomy History of cholecystectomy History of cervical spinal surgery Family History Family History Other Adopted Social History Social History (Updated 03/02/25 @ 00:13 by Cheri Ferguson APRN) Social History: He is and has 2 children. 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 He lives alone Healthcare power of inspector balance bridge: Nina Hoa, friend ([phone]). Code status: Full code. Smoking packs per day: 1 Smoking cigarettes per day: 20.0 Years smoked: 25 Smoking pack-years: 25.00 Smoking status: Former smoker Tobacco type: cigarettes and pipe Alcohol intake: never Substance use: never Substance use type: does not use Do You Feel Safe in your Home?: Yes Lack of Transportation: No Lack of Food: Never True Current Housing: I Have Housing Concerned About Future Housing: No Difficulty Paying Gas/Electric Bills: No Difficulty Paying for Meds: No Currently Unemployed: No Education: High School Diploma/GED Difficulty w/ Childcare or Family Care: No Living arrangements: alone Occupation/Education: retired Spiritual care concerns: No Meds Home Medications and Allergies Home Medications ?Medication ?Instructions ?Recorded ?Confirmed ?Type atorvastatin 20 mg tablet 20 mg PO DAILY 10/16/21 03/02/25 History budesonide-formoterol HFA 160 2 puff inhalation BID 10/16/21 03/02/25 History mcg-4.5 mcg/actuation aerosol inhaler (Symbicort) bupropion HCl 150 mg tablet,12 hr 150 mg PO BID 10/16/21 03/02/25 History sustained-release doxazosin 4 mg tablet 4 mg PO HS 10/16/21 03/02/25 History isosorbide mononitrate 30 mg 30 mg PO DAILY 10/16/21 03/02/25 History tablet,extended release 24 hr Aspir-81 81 mg PO DAILY 05/09/23 03/02/25 History albuterol sulfate 90 mcg/actuation 2 puff inhalation PRN PRN Wheezing 05/09/23 03/02/25 History aerosol inhaler brimonidine 0.2 %-timolol 0.5 % 1 drp RIGHT EYE .COMPLEX 05/09/23 03/02/25 History eye drops (Combigan) latanoprost 0.005 % eye drops 1 drp RIGHT EYE HS 05/09/23 03/02/25 History omeprazole 40 mg capsule,delayed 40 mg PO DAILY 05/25/24 03/02/25 History release gabapentin 600 mg tablet 600 mg PO HS 05/30/24 03/02/25 History ferrous sulfate 325 mg (65 mg 325 mg PO DAILY 03/02/25 03/02/25 History iron) tablet guaifenesin 600 mg tablet, 600 mg PO Q12HR 03/02/25 03/02/25 History extended release 12 hr (Mucus Relief ER) Allergies Allergy/AdvReac Type Severity Reaction Status Date / Time No Known Allergies Allergy Mild Verified 03/01/25 17:10 Vital Signs Vital Signs - 24 hr 03/01/25 17:08 03/01/25 17:47 03/01/25 17:48 Temperature 98.3 F Pulse Rate 69 67 66 Respiratory Rate 18 22 H 18 Blood Pressure 122/86 132/65 Pulse Oximetry 95 93 92 Oxygen Delivery Room Air 03/01/25 18:36 03/01/25 18:48 03/01/25 19:00 Temperature Pulse Rate 63 67 65 Respiratory Rate 16 19 Blood Pressure 124/58 L 130/65 Pulse Oximetry 93 94 Oxygen Delivery Room Air 03/01/25 21:08 03/01/25 21:15 03/01/25 21:16 Temperature Pulse Rate 76 77 78 Respiratory Rate 27 H 23 H 25 H Blood Pressure 126/61 Pulse Oximetry 92 95 95 Oxygen Delivery 03/01/25 21:30 03/01/25 22:00 Temperature 98.9 F Pulse Rate 76 81 Respiratory Rate 23 H 18 Blood Pressure 152/128 H Pulse Oximetry 95 96 Oxygen Delivery Exam Const: General: cooperative, comfortable, no acute distress, well developed, awake, Physically active, average body habitus and well nourished Nutritional Appearance: average body habitus and well nourished Orientation/consciousness: oriented to person and oriented to place Other: He is a poor historian. HENMT: Head: normal to inspection, No palpable skull fracture present, normocephalic, atraumatic and abrasion Ears: external ears normal Other: Hard of hearing bilaterally and does not have hearing aid Eyes: General: appearance normal, both eyes and all related structures Alignment and Position: alignment normal Periorbital: periorbital findings normal Eyelids: eyelids normal Neck: Neck: normal visual inspection, full ROM, no lymphadenopathy, trachea midline and supple Chest: Chest palpation & inspection: normal inspection of the chest Resp: Effort & Inspection: normal respiratory effort Auscultation: clear to auscultation bilaterally Cardio: Palpation: normal PMI Rate: regular rate Rhythm: regular rhythm Heart sounds: S1 normal heart sound present and S2 normal heart sound present Peripheral pulses: Peripheral pulses 2+ throughout GI: Inspection: normal to inspection Auscultation: normal bowel sounds Rectal Exam: deferred Back/Spine/Pelvis: Cervical Spine: cervical ROM normal Skin: General skin exam: normal color Lesions: no lesions Rashes: no rashes Trauma: no lacerations or abrasions Wounds: no wounds Hair: normal Nails: normal Neuro: General: oriented to person, oriented to place, oriented to time and patient oriented x3 Cranial nerves: Yes Equal, round and reactive pupils present Cognition (Neuro): normal cognition Speech: normal speech Extrem: General: normal to inspection Right upper extremity: normal to inspection and shoulder/upper arm Left upper extremity: normal to inspection and shoulder/upper arm Right lower extremity: normal to inspection Left lower extremity: normal to inspection Psych: Appearance: grossly normal Mental Status: mental status grossly normal Speech and movement: Normal speech and movement present Affect: normal affect Attitude: cooperative Thought process: Normal thought process present Thought content: Yes Normal thought content present H&P: Results Labs Labs: Short CBC 03/01/25 Range/Units 18:01 WBC 7.2 (4.5-10.0) K/mm3 Hgb 12.9 L (14.0-18.0) g/dL Hct 39.7 L (42.0-52.0) % Plt Count 164 (150-375) k/mm3 BMP 03/01/25 18:01 Sodium 135 L Potassium 4.0 Chloride 101 Carbon Dioxide 28 BUN 21 H Creatinine 1.02 Glucose 88 Calcium 8.9 Liver Function 03/01/25 Range/Units 18:01 Total Bilirubin 0.6 (0.2-1.3) mg/dL AST 22 (17-59) U/L ALT 16 (6-50) U/L Alkaline Phosphatase 125 (38-126) U/L Albumin 3.6 (3.5-5.1) g/dL Urine 03/01/25 Range/Units 18:09 Urine Color Yellow (Yellow) Urine Appearance Turbid H (Clear) Urine pH 6.0 (5.0-9.0) Ur Specific [place] 1.027 (1.001-1.035) Urine Protein 1+ H (Negative) mg/dL Urine Glucose (UA) Negative (Negative) mg/dL ECG Interpretation: SINUS RHYTHM WITH FIRST DEGREE AV BLOCK RIGHT BUNDLE BRANCH BLOCK ST-T WAVE ABNORMALITY IN INFERIOR LEADS- CONSIDER ISCHEMIA BASELINE ARTIFACT- I, II, III, AVR, AVL, AVF, V4-V6 ABNORMAL ECG Compared to ECG 10/12/2024 18:32:45 NO SIGNIFICANT CHANGE Imaging Chest x-ray: Radiologist's impression: Impressions Chest X-Ray 03/01/25 18:27 IMPRESSION: 1. No acute cardiopulmonary findings. Assessment and Plan Assessment and plan (1) UTI (urinary tract infection): Code(s): N39.0 - Urinary tract infection, site not specified Status: Acute Assessment and Plan: -on his UA the patient has 3+ leukocyte esterase, wbc's greater than 100, positive nitrates and 1+ urine blood. -blood in urine cultures are pending. -patient was started on Rocephin pending cultures. -daily CBC (2) Hypertension: Code(s): I10 - Essential (primary) hypertension Status: Acute Assessment and Plan: -patient's med list is still being verified. It is unclear if the patient is still on any medication for blood pressure. -p.r.n. hydralazine. His blood pressure is currently 169/68. (3) CAD (coronary artery disease): Code(s): I25.10 - Atherosclerotic heart disease of [place] coronary artery without angina pectoris Status: Acute Assessment and Plan: -the patient stated he had a history of 4 cardiac stents. -awaiting medication clarification however it looks like the patient has been on atorvastatin in the past -we are waiting medication verification and it looks like he had been on isosorbide in the past. -continue with aspirin pending medication verification (4) Hyperlipidemia: Code(s): E78.5 - Hyperlipidemia, unspecified Status: Acute Assessment and Plan: -continue with atorvastatin pending medication verification. (5) Debility: Code(s): R53.81 - Other malaise Status: Acute Assessment and Plan: -PT OT evaluation would greatly be appreciated. (6) Sleep apnea: Code(s): G47.30 - Sleep apnea, unspecified Status: Acute Assessment and Plan: -the patient is chronically on O2 2 L per nasal cannula. He stated that he has a CPAP machine at home but no longer uses it. (7) Anemia: Code(s): D64.9 - Anemia, unspecified Status: Acute Assessment and Plan: -patient's H&H is 12.9 and 39.7 which is improved from his baseline. -no signs and symptoms of bleeding at this time.
--- NOTE | 2025-03-01 23:35 | PC.NURSE ---
Pt unable to confirm meds. Attempted to call POA listed to confirm pt's meds and there was no answer and automated voice says voicemail is not set up. Will attempt in the morning to reach POA again if no call back returned.
[2025-03-02 01:49] LABS: Hematocrit 38.7 % (42.0-52.0); Hemoglobin 12.6 g/dL (14.0-18.0); Mean Corpuscular HGB Conc 32.6 g/dl (32-36); Mean Corpuscular Hemoglobin 34.3 pg (26-34); Mean Corpuscular Volume 105.4 fl (80-100); Platelet Count Result 159 k/mm3 (150-375); Red Blood Count 3.67 M/mm3 (4.6-6.20); White Blood Count 6.1 K/mm3 (4.5-10.0)
[2025-03-02 02:00] LABS: Anion Gap 7 mmol/L (4-12); Blood Urea Nitrogen 18 mg/dL (9-20); Calcium 8.8 mg/dL (8.4-10.2); Carbon Dioxide 27 mmol/L (22-30); Chloride 101 mmol/L (98-107); Estimated CRCL calculation 45 ml/min; Estimated Glomerular Filt Rate > 60; Glucose 80 mg/dL (65-110); Potassium 3.7 mmol/L (3.4-5.0); Sodium 135 mmol/L (137-145)
[2025-03-02 05:32] VITALS: BP 142/55; PULSE 78; RESP 24; TEMP 37.1; O2SAT 90
[2025-03-02 13:49] VITALS: BP 120/56; PULSE 70; RESP 16; TEMP 36.8; O2SAT 100
--- NOTE | 2025-03-02 13:59 | PM.IMPN ---
Progress Note: A&P Assessment and Plan (1) UTI (urinary tract infection): Code(s): N39.0 - Urinary tract infection, site not specified Status: Acute Assessment and Plan: -on his UA the patient has 3+ leukocyte esterase, wbc's greater than 100, positive nitrates and 1+ urine blood. -blood in urine cultures are pending. -patient was started on Rocephin pending cultures. -daily CBC 03/02: TTP to suprapubic abd upon my exam -Pending UC -Continue ceftriaxone -Continue daily CBC (2) Hypertension: Code(s): I10 - Essential (primary) hypertension Status: Acute Assessment and Plan: -patient's med list is still being verified. It is unclear if the patient is still on any medication for blood pressure. -p.r.n. hydralazine. His blood pressure is currently 169/68. 03/02: Pt BPs more stable today at 120/56 Doxazosin Mesylate on med list per POA, restarted today (3) CAD (coronary artery disease): Code(s): I25.10 - Atherosclerotic heart disease of [place] coronary artery without angina pectoris Status: Acute Assessment and Plan: -the patient stated he had a history of 4 cardiac stents. -awaiting medication clarification however it looks like the patient has been on atorvastatin in the past -we are waiting medication verification and it looks like he had been on isosorbide in the past. -continue with aspirin pending medication verification 03/02: Pt denies CP Continue ASA 81mg, atorvastatin, isosorbide mono (4) Hyperlipidemia: Code(s): E78.5 - Hyperlipidemia, unspecified Status: Acute Assessment and Plan: -continue with atorvastatin (5) Debility: Code(s): R53.81 - Other malaise Status: Acute Assessment and Plan: -PT OT evaluation would greatly be appreciated. 03/02: PT with recs for SNF (6) Sleep apnea: Code(s): G47.30 - Sleep apnea, unspecified Status: Acute Assessment and Plan: -the patient is chronically on O2 2 L per nasal cannula. He stated that he has a CPAP machine at home but no longer uses it. 03/02: Pt found on 3L NC today, states that he has SOB but always has SOB. Will continue to monitor. (7) Anemia: Code(s): D64.9 - Anemia, unspecified Status: Acute Assessment and Plan: -patient's H&H is 12.9 and 39.7 which is improved from his baseline. -no signs and symptoms of bleeding at this time. Plan IV abx therapy for UTI, pending UC & BC, PT/OT eval & tx Time Spent With Patient Time: 20 Subjective Date/time seen: 03/02/25 1106 Interval history: Per admitting hospitalist: This is an 89-year-old male patient who is very hard of hearing. He has a history of hypertension and hyperlipidemia. He has developed progressive weakness over the past month. He self reports of fever over the last couple days. He denies any nausea vomiting diarrhea. He denies any chest pain or chest pressure. He stated that his urine is darker than normal. He denies any cough. His H&H is 12.9 and 39.7 which is above his baseline. Sodium is slightly low at 135. Urine is turbid 1+ urine protein, urine ketones 1+, urine blood 1+, nitrate positive, leukocyte esterase 3+, and wbc's greater than 100 in the urine. He was negative for influenza a and B, RSV and COVID. The patient was given Zofran, Vicodin, and Rocephin in the emergency room. The patient is being admitted to observation status on the date of service of 03/01/2025. 03/02: Pt sleeping in bed upon my arrival. Pt is A&O x4 and states that he feels overall malaise. He states that he is also SOB, but he is also always SOB and uses home O2 but does not know how many Liters he is on (3L NC at the bedside today). Review of Systems Review of Systems: All systems reviewed & are unremarkable except as noted in HPI and below Constitutional: Constitutional: Reports as per HPI and Reports no additional constitutional complaints Eyes: Eyes: Reports as per HPI and Reports no additional eye complaints ENT: Reports system reviewed and no additional complaints, except as documented and Reports Normal hearing present Cardiovascular: Cardiovascular: Reports no additional cardiovascular complaints Respiratory: Respiratory: Reports as per HPI and Reports no additional respiratory complaints Gastrointestinal: Gastrointestinal: Reports as per HPI and Reports no additional gastrointestinal complaints Musculoskeletal: Musculoskeletal: Reports no additional musculoskeletal complaints Integumentary/Breasts: Skin/Breast: Reports system reviewed and no additional complaints, except as docu Neurologic: Reports system reviewed and no additional complaints, except as documented and Reports Normal hearing present Psychiatric: Psychiatric: Reports no additional psychiatric complaints and Reports as per HPI Hematologic/Lymphatic: Hematologic/Lymphatic: Reports no additional hematologic/lymphatic complaints Allergic/Immunologic: Allergic/Immunologic: Reports no additional allergic/immunologic complaints Exam Const: General: cooperative, comfortable, no acute distress, well developed, awake, Physically active, average body habitus and well nourished Nutritional Appearance: average body habitus and well nourished Orientation/consciousness: oriented to person, oriented to place, oriented to time and patient oriented x3 Other: He is a poor historian. HENMT: Head: normal to inspection, No palpable skull fracture present, normocephalic, atraumatic and abrasion Ears: external ears normal Other: +[place] Eyes: General: appearance normal, both eyes and all related structures Alignment and Position: alignment normal Periorbital: periorbital findings normal Eyelids: eyelids normal Pupils: Equal, round and reactive pupils present Neck: Neck: normal visual inspection, full ROM, no lymphadenopathy, trachea midline and supple Chest: Chest palpation & inspection: normal inspection of the chest Resp: Effort & Inspection: normal respiratory effort Auscultation: clear to auscultation bilaterally Cardio: Palpation: normal PMI Rate: regular rate Rhythm: regular rhythm Heart sounds: S1 normal heart sound present and S2 normal heart sound present Peripheral pulses: Peripheral pulses 2+ throughout GI: Inspection: normal to inspection Auscultation: normal bowel sounds Rectal Exam: deferred Other: TTP suprapubic abd Back/Spine/Pelvis: Cervical Spine: cervical ROM normal Skin: General skin exam: normal color Lesions: no lesions Rashes: no rashes Trauma: no lacerations or abrasions Wounds: no wounds Hair: normal Nails: normal Neuro: General: oriented to person, oriented to place, oriented to time and patient oriented x3 Cranial nerves: Yes Equal, round and reactive pupils present and Yes Normal hearing present Cognition (Neuro): normal cognition Speech: normal speech Other: R hand focal tremor Extrem: General: normal to inspection Right upper extremity: normal to inspection and shoulder/upper arm Left upper extremity: normal to inspection and shoulder/upper arm Right lower extremity: normal to inspection Left lower extremity: normal to inspection Psych: Appearance: grossly normal Mental Status: mental status grossly normal Speech and movement: Normal speech and movement present Affect: normal affect Attitude: cooperative Thought process: Normal thought process present Objective Data Vital Signs Vital Signs: Vital Signs - 24 hr 03/01/25 17:08 03/01/25 17:47 03/01/25 17:48 Temperature 98.3 F Pulse Rate 69 67 66 Respiratory Rate 18 22 H 18 Blood Pressure 122/86 132/65 Pulse Oximetry 95 93 92 Oxygen Delivery Room Air Oxygen Flow Rate 03/01/25 18:36 03/01/25 18:48 03/01/25 19:00 Temperature Pulse Rate 63 67 65 Respiratory Rate 16 19 Blood Pressure 124/58 L 130/65 Pulse Oximetry 93 94 Oxygen Delivery Room Air Oxygen Flow Rate 03/01/25 21:08 03/01/25 21:15 03/01/25 21:16 Temperature Pulse Rate 76 77 78 Respiratory Rate 27 H 23 H 25 H Blood Pressure 126/61 Pulse Oximetry 92 95 95 Oxygen Delivery Oxygen Flow Rate 03/01/25 21:30 03/01/25 22:00 03/01/25 22:55 Temperature 98.9 F Pulse Rate 76 81 Respiratory Rate 23 H 18 Blood Pressure 152/128 H Pulse Oximetry 95 96 Oxygen Delivery Room Air Oxygen Flow Rate 03/01/25 23:15 03/02/25 05:32 03/02/25 07:56 Temperature 98.8 F Pulse Rate 78 Respiratory Rate 24 H Blood Pressure 169/68 H 142/55 H Pulse Oximetry 90 Oxygen Delivery Room Air Oxygen Flow Rate 03/02/25 12:31 03/02/25 13:49 Temperature 98.2 F Pulse Rate 70 Respiratory Rate 16 Blood Pressure 120/56 L Pulse Oximetry 100 Oxygen Delivery Nasal Cannula Oxygen Flow Rate 1 Intake/Output Intake/Output: Intake & Output 02/27/25 02/28/25 03/01/25 03/02/25 23:59 23:59 23:59 23:59 Intake Total 50 118 Output Total 110 250 Balance -60 -132 Meds/Results Medications: Active Medications Generic Name Dose Route Start Last Admin Trade Name Freq PRN Reason Stop Dose Admin Acetaminophen 650 mg 03/01/25 19:24 Acetaminophen 325 Mg Tablet PO Q4H PRN Mild Pain (1-3) or Fever Hydrocodone Bitart/Acetaminophen 1 tab 03/01/25 19:24 Hydrocodone/Acetaminophen (*Crx) 5-325 Mg Tablet PO Q4H PRN Pain Rated 4-6 Albuterol 2 puff 03/01/25 23:58 Albuterol Sulfate (*Sp) Aerosol 1 Puff INHALATION Q6HRT PRN Shortness Of Breath Hydralazine HCl 10 mg 03/01/25 23:57 Hydralazine Hcl 20 Mg/Ml Vial IV PUSH Q8H PRN Blood Pressure - High Ceftriaxone Sodium 1 gm/ 50 mls @ 100 mls/hr 03/02/25 21:00 Sodium Chloride IVPB Q24H JAMISON Ondansetron HCl 4 mg 03/01/25 19:24 Ondansetron Inj 4 Mg/2 Ml Vial IV PUSH Q4H PRN Nausea Radiology Results: ITS Impressions Chest X-Ray 03/01/25 18:27 IMPRESSION: 1. No acute cardiopulmonary findings. Labs Labs: Laboratory Results - last 24 hr 03/01/25 03/01/25 03/02/25 18:01 18:09 01:14 WBC 7.2 6.1 RBC 3.75 L 3.67 L Hgb 12.9 L 12.6 L Hct 39.7 L 38.7 L MCV 105.9 H 105.4 H MCH 34.4 H 34.3 H MCHC 32.5 32.6 RDW 13.6 13.5 Plt Count 164 159 MPV 9.4 9.5 Immature Gran % (Auto) 0.4 Neut % (Auto) 70.4 Lymph % (Auto) 11.8 L [place] % (Auto) 16.5 H Eos % (Auto) 0.6 Baso % (Auto) 0.3 Lymph # (Auto) 0.85 L [place] # (Auto) 1.2 H Eos # (Auto) 0.0 Baso # (Auto) 0.0 Abs Immat Gran (auto) 0.03 Absolute Neuts (auto) 5.1 Absolute Nucleated RBC 0.000 Nucleated RBC % 0.0 Sodium 135 L 135 L Potassium 4.0 3.7 Chloride 101 101 Carbon Dioxide 28 27 Anion Gap 6 7 BUN 21 H 18 Creatinine 1.02 1.02 Estim Creat Clear Calc 48 45 Estimated GFR > 60 > 60 Glucose 88 80 Calcium 8.9 8.8 Total Bilirubin 0.6 AST 22 ALT 16 Alkaline Phosphatase 125 Total Protein 6.9 Albumin 3.6 Urine Color Yellow Urine Appearance Turbid H Urine pH 6.0 Ur Specific [place] 1.027 Urine Protein 1+ H Urine Glucose (UA) Negative Urine Ketones 1+ H Ur Blood (Man) 1+ H Urine Nitrate Positive H Urine Bilirubin Negative Urine Urobilinogen 2.0 H Leukocyte Esterase Rfl 3+ H Urine RBC 0-2 Urine WBC >100 H Ur Squamous Epith Cells None seen Urine Bacteria 4+ Urine Casts 0-2 Influenza A (RT-PCR) Negative Influenza B (RT-PCR) Negative RSV (RT-PCR) Negative SARS-CoV-2 RNA (RT-PCR) Negative Quality VTE Prophylaxis VTE prophylaxis: mechanical ordered
[2025-03-02] MEDS: TIMOLOL MALEATE 0.5% OP SOLN 5 ML BOTTLE 1 DROP RIGHT EYE (15:26)
[2025-03-02] MEDS: BRIMONIDINE TARTRATE 0.2% OP SOLN 5 ML BTL 1 DROP RIGHT EYE (15:26)
--- NOTE | 2025-03-02 16:18 | PC.NURSE ---
POA states the eye drops are not the right ones and insists on using the ones from home. they are bedside and will pass to night nurse that POA will administer.
[2025-03-02] MEDS: buPROPion HCL SR (12 HR) 150 MG TAB PO (17:13)
[2025-03-02] MEDS: PANTOPRAZOLE 40 MG TABLET PO (17:13)
[2025-03-02] MEDS: ATORVASTATIN 20 MG TABLET PO (17:13)
[2025-03-02] MEDS: FLUTICASONE/SALMETEROL 115-21 MCG INHALER 1 PUFF 2 PUFF INHALATION (20:16)
[2025-03-02 20:19] VITALS: RESP 16
[2025-03-02 20:20] VITALS: PULSE 80; O2SAT 95
[2025-03-02 20:56] VITALS: O2SAT 96
[2025-03-02 21:01] VITALS: BP 117/42; PULSE 64; RESP 18; TEMP 37.3; O2SAT 96
[2025-03-02] MEDS: cefTRIAXone 1 GM in SODIUM CHLORIDE 0.9% IV 50 ML 100 ML IVPB (21:11)
[2025-03-02] MEDS: DOXAZOSIN MESYLATE 4 MG TABLET PO (21:12)
[2025-03-02] MEDS: GABAPENTIN 300 MG CAPSULE 600 MG PO (21:12)
[2025-03-02] MEDS: guaiFENesin 12 HR 600 MG TABCR PO (21:12)
[2025-03-03] VITALS (9 sets, daily range): BP systolic 94–123; BP diastolic 48–58; PULSE 56–76; RESP 16–20; TEMP 36.4–36.8; O2SAT 91–98
--- NOTE | 2025-03-03 07:49 | PM.IMPN ---
Progress Note: A&P Assessment and Plan (1) UTI (urinary tract infection): Code(s): N39.0 - Urinary tract infection, site not specified Status: Acute Assessment and Plan: -on his UA the patient has 3+ leukocyte esterase, wbc's greater than 100, positive nitrates and 1+ urine blood. -blood in urine cultures are pending. -patient was started on Rocephin pending cultures. -daily CBC 03/02: TTP to suprapubic abd upon my exam -Pending UC -Continue ceftriaxone -Continue daily CBC 03/03: TTP to suprapubic abd upon my exam but not as severe today -Pending UC -Continue ceftriaxone -Continue daily CBC -VSS (2) Hypertension: Code(s): I10 - Essential (primary) hypertension Status: Acute Assessment and Plan: -patient's med list is still being verified. It is unclear if the patient is still on any medication for blood pressure. -p.r.n. hydralazine. His blood pressure is currently 169/68. 03/02: Pt BPs more stable today at 120/56 Doxazosin Mesylate on med list per POA, restarted today 03/03: BP continues to be stable (3) CAD (coronary artery disease): Code(s): I25.10 - Atherosclerotic heart disease of [place] coronary artery without angina pectoris Status: Acute Assessment and Plan: -the patient stated he had a history of 4 cardiac stents. -awaiting medication clarification however it looks like the patient has been on atorvastatin in the past -we are waiting medication verification and it looks like he had been on isosorbide in the past. -continue with aspirin pending medication verification 03/02: Pt denies CP Continue ASA 81mg, atorvastatin, isosorbide mono 03/03: Pt denies CP Continue meds (4) Hyperlipidemia: Code(s): E78.5 - Hyperlipidemia, unspecified Status: Acute Assessment and Plan: -continue with atorvastatin (5) Debility: Code(s): R53.81 - Other malaise Status: Acute Assessment and Plan: -PT OT evaluation would greatly be appreciated. 03/02: PT with recs for SNF (6) Sleep apnea: Code(s): G47.30 - Sleep apnea, unspecified Status: Acute Assessment and Plan: -the patient is chronically on O2 2 L per nasal cannula. He stated that he has a CPAP machine at home but no longer uses it. 03/02: Pt found on 3L NC today, states that he has SOB but always has SOB. Will continue to monitor. 03/03: Plan to wean pt to his baseline of 2L NC (7) Anemia: Code(s): D64.9 - Anemia, unspecified Status: Acute Assessment and Plan: -patient's H&H is 12.9 and 39.7 which is improved from his baseline. -no signs and symptoms of bleeding at this time. Plan IV abx therapy for UTI, pending UC & BC, PT/OT rec SNF Time Spent With Patient Time: 35 Subjective Date/time seen: 03/03/25 1117 Interval history: Per admitting hospitalist: This is an 89-year-old male patient who is very hard of hearing. He has a history of hypertension and hyperlipidemia. He has developed progressive weakness over the past month. He self reports of fever over the last couple days. He denies any nausea vomiting diarrhea. He denies any chest pain or chest pressure. He stated that his urine is darker than normal. He denies any cough. His H&H is 12.9 and 39.7 which is above his baseline. Sodium is slightly low at 135. Urine is turbid 1+ urine protein, urine ketones 1+, urine blood 1+, nitrate positive, leukocyte esterase 3+, and wbc's greater than 100 in the urine. He was negative for influenza a and B, RSV and COVID. The patient was given Zofran, Vicodin, and Rocephin in the emergency room. The patient is being admitted to observation status on the date of service of 03/01/2025. 03/02: Pt sleeping in bed upon my arrival. Pt is A&O x4 and states that he feels overall malaise. He states that he is also SOB, but he is also always SOB and uses home O2 but does not know how many Liters he is on (3L NC at the bedside today). 03/03: Pt sleeping sitting up in chair. Pt states that he is starting to feel better but he is still feeling malaise. Pt not SOB. Agrees with plan to continue IV abx for UTI. Remains A&O x4. Review of Systems Review of Systems: All systems reviewed & are unremarkable except as noted in HPI and below Constitutional: Constitutional: Reports as per HPI and Reports no additional constitutional complaints Eyes: Eyes: Reports as per HPI and Reports no additional eye complaints ENT: Reports system reviewed and no additional complaints, except as documented and Reports Normal hearing present Cardiovascular: Cardiovascular: Reports no additional cardiovascular complaints Respiratory: Respiratory: Reports as per HPI and Reports no additional respiratory complaints Gastrointestinal: Gastrointestinal: Reports as per HPI and Reports no additional gastrointestinal complaints Musculoskeletal: Musculoskeletal: Reports no additional musculoskeletal complaints Integumentary/Breasts: Skin/Breast: Reports system reviewed and no additional complaints, except as docu Neurologic: Reports system reviewed and no additional complaints, except as documented and Reports Normal hearing present Psychiatric: Psychiatric: Reports no additional psychiatric complaints and Reports as per HPI Hematologic/Lymphatic: Hematologic/Lymphatic: Reports no additional hematologic/lymphatic complaints Allergic/Immunologic: Allergic/Immunologic: Reports no additional allergic/immunologic complaints Exam Const: General: cooperative, comfortable, no acute distress, well developed, awake, Physically active, average body habitus and well nourished Nutritional Appearance: average body habitus and well nourished Orientation/consciousness: oriented to person, oriented to place, oriented to time and patient oriented x3 Other: He is a poor historian. HENMT: Head: normal to inspection, No palpable skull fracture present, normocephalic, atraumatic and abrasion Ears: external ears normal Other: +BOIS FORTE Eyes: General: appearance normal, both eyes and all related structures Alignment and Position: alignment normal Periorbital: periorbital findings normal Eyelids: eyelids normal Pupils: Equal, round and reactive pupils present Neck: Neck: normal visual inspection, full ROM, no lymphadenopathy, trachea midline and supple Chest: Chest palpation & inspection: normal inspection of the chest Resp: Effort & Inspection: normal respiratory effort Auscultation: clear to auscultation bilaterally Cardio: Palpation: normal PMI Rate: regular rate Rhythm: regular rhythm Heart sounds: S1 normal heart sound present and S2 normal heart sound present Peripheral pulses: Peripheral pulses 2+ throughout GI: Inspection: normal to inspection Auscultation: normal bowel sounds Rectal Exam: deferred Other: TTP suprapubic abd, mild Back/Spine/Pelvis: Cervical Spine: cervical ROM normal Skin: General skin exam: normal color Lesions: no lesions Rashes: no rashes Trauma: no lacerations or abrasions Wounds: no wounds Hair: normal Nails: normal Neuro: General: oriented to person, oriented to place, oriented to time and patient oriented x3 Cranial nerves: Yes Equal, round and reactive pupils present and Yes Normal hearing present Cognition (Neuro): normal cognition Speech: normal speech Other: R hand focal tremor Extrem: General: normal to inspection Right upper extremity: normal to inspection and shoulder/upper arm Left upper extremity: normal to inspection and shoulder/upper arm Right lower extremity: normal to inspection Left lower extremity: normal to inspection Psych: Appearance: grossly normal Mental Status: mental status grossly normal Speech and movement: Normal speech and movement present Affect: normal affect Attitude: cooperative Thought process: Normal thought process present Objective Data Vital Signs Vital Signs: Vital Signs - 24 hr 03/02/25 07:56 03/02/25 12:31 03/02/25 13:49 Temperature 98.2 F Pulse Rate 70 Respiratory Rate 16 Blood Pressure 120/56 L Pulse Oximetry 100 Oxygen Delivery Room Air Nasal Cannula Oxygen Flow Rate 1 03/02/25 20:19 03/02/25 20:20 03/02/25 20:56 Temperature Pulse Rate 80 Respiratory Rate 16 Blood Pressure Pulse Oximetry 95 96 Oxygen Delivery Nasal Cannula Nasal Cannula Oxygen Flow Rate 3 3 03/02/25 21:01 03/03/25 05:15 Temperature 99.1 F 98 F Pulse Rate 64 56 L Respiratory Rate 18 18 Blood Pressure 117/42 L 123/48 L Pulse Oximetry 96 98 Oxygen Delivery Oxygen Flow Rate Intake/Output Intake/Output: Intake & Output 02/28/25 03/01/25 03/02/25 03/03/25 23:59 23:59 23:59 23:59 Intake Total 50 386 150 Output Total 110 450 400 Balance -60 -64 -250 Meds/Results Medications: Active Medications Generic Name Dose Route Start Last Admin Trade Name Freq PRN Reason Stop Dose Admin Acetaminophen 650 mg 03/01/25 19:24 Acetaminophen 325 Mg Tablet PO Q4H PRN Mild Pain (1-3) or Fever Hydrocodone Bitart/Acetaminophen 1 tab 03/01/25 19:24 Hydrocodone/Acetaminophen (*Crx) 5-325 Mg Tablet PO Q4H PRN Pain Rated 4-6 Albuterol 2 puff 03/01/25 23:58 Albuterol Sulfate (*Sp) Aerosol 1 Puff INHALATION Q6HRT PRN Shortness Of Breath Albuterol 2 puff 03/02/25 13:57 Albuterol Sulfate (*Sp) Aerosol 1 Puff INHALATION PRN PRN Wheezing Aspirin 81 mg 03/03/25 09:00 Aspirin 81 Mg Enteric Tablet PO QAM JAMISON Atorvastatin Calcium 20 mg 03/02/25 17:00 03/02/25 17:13 Atorvastatin 20 Mg Tablet PO 20 mg DAILY@1700 JAMISON Administration Brimonidine Tartrate 1 drop 03/02/25 15:00 03/02/25 15:26 Brimonidine Tartrate 0.2% Op Soln 5 Ml Btl RIGHT EYE 1 drop 0900,1200 [facility] Administration Bupropion HCl 150 mg 03/02/25 17:00 03/02/25 17:13 Bupropion Hcl Sr (12 Hr) 150 Mg Tab PO 150 mg BID [facility] Administration Doxazosin Mesylate 4 mg 03/02/25 21:00 03/02/25 21:12 Doxazosin Mesylate 4 Mg Tablet PO 4 mg HS [facility] Administration Ferrous Sulfate 325 mg 03/03/25 09:00 Ferrous Sulfate 325 Mg Tablet BY MOUTH DAILY [facility] Gabapentin 600 mg 03/02/25 21:00 03/02/25 21:12 Gabapentin 300 Mg Capsule PO 600 mg HS [facility] Administration Guaifenesin 600 mg 03/02/25 21:00 03/02/25 21:12 Guaifenesin 12 Hr 600 Mg Tabcr PO 600 mg Q12HR [facility] Administration Hydralazine HCl 10 mg 03/01/25 23:57 Hydralazine Hcl 20 Mg/Ml Vial IV PUSH Q8H PRN Blood Pressure - High Ceftriaxone Sodium 1 gm/ 50 mls @ 100 mls/hr 03/02/25 21:00 03/02/25 21:41 Sodium Chloride IVPB Infused Q24H [facility] Infusion Isosorbide Mononitrate 30 mg 03/03/25 09:00 Isosorbide Mononitrate 30 Mg Tab.Er.24h PO DAILY [facility] Latanoprost 1 drop 03/02/25 21:00 Latanoprost 0.005% Op Soln 2.5 Ml Btl RIGHT EYE HS [facility] Miscellaneous Information 1 each 03/02/25 00:01 Xalatan Ordered For Right Eye. External Med Link Rx Is Each Eye (Filled 12/31/24). Clarify I XX 04/01/25 00:00 CLARIFY JAMISON Ondansetron HCl 4 mg 03/01/25 19:24 Ondansetron Inj 4 Mg/2 Ml Vial IV PUSH Q4H PRN Nausea Pantoprazole Sodium 40 mg 03/02/25 17:00 03/02/25 17:13 Pantoprazole 40 Mg Tablet PO 40 mg BID [facility] Administration Fluticasone/Salmeterol 2 puff 03/02/25 20:00 03/02/25 20:16 Fluticasone/Salmeterol 115-21 Mcg Inhaler 1 Puff INHALATION 2 puff Q12HRT [facility] Administration Timolol Maleate 1 drop 03/02/25 15:00 03/02/25 15:26 Timolol Maleate 0.5% Op Soln 5 Ml Bottle RIGHT EYE 1 drop 0900,1200 J[facility] Administration Radiology Results: ITS Impressions Chest X-Ray 03/01/25 18:27 IMPRESSION: 1. No acute cardiopulmonary findings. Quality VTE Prophylaxis VTE prophylaxis: mechanical ordered
[2025-03-03 08:07] LABS: Hematocrit 38.0 % (42.0-52.0); Hemoglobin 12.5 g/dL (14.0-18.0); Mean Corpuscular HGB Conc 32.9 g/dl (32-36); Mean Corpuscular Hemoglobin 34.6 pg (26-34); Mean Corpuscular Volume 105.3 fl (80-100); Platelet Count Result 139 k/mm3 (150-375); Red Blood Count 3.61 M/mm3 (4.6-6.20); White Blood Count 4.9 K/mm3 (4.5-10.0)
[2025-03-03 08:26] LABS: Alanine Aminotransferase 14 U/L (6-50); Albumin Level 3.3 g/dL (3.5-5.1); Alkaline Phosphatase 106 U/L (38-126); Anion Gap 6 mmol/L (4-12); Aspartate Amino Transferase 21 U/L (17-59); Bilirubin,Total 0.6 mg/dL (0.2-1.3); Blood Urea Nitrogen 16 mg/dL (9-20); Calcium 8.5 mg/dL (8.4-10.2); Carbon Dioxide 29 mmol/L (22-30); Chloride 100 mmol/L (98-107); Estimated CRCL calculation 45 ml/min; Estimated Glomerular Filt Rate > 60; Glucose 90 mg/dL (65-110); Potassium 3.8 mmol/L (3.4-5.0); Sodium 135 mmol/L (137-145); Total Protein 6.4 g/dL (6.3-8.2)
[2025-03-03 08:33] LABS: Basophils Absolute Manual 0.04 K/mm3 (0.0-0.1); Basophils Percent Manual 1 % (0-1); Lymphocytes Absolute Manual 0.44 K/mm3 (1.1-4.5); Lymphocytes Percent Manual 9 % (18-44); Monocytes Absolute Manual 0.93 K/mm3 (0.1-0.90); Monocytes Percent Manual 19 % (3-9); Neutrophils Percent Manual 71 % (46-73); Total Cells Counted 100
[2025-03-03 08:34] LABS: Anisocytosis 1+; Macrocytosis 1+ (NORMAL); Schistocytes None Seen
[2025-03-03] MEDS: FLUTICASONE/SALMETEROL 115-21 MCG INHALER 1 PUFF 2 PUFF INHALATION ×2 (08:35→21:32)
[2025-03-03] MEDS: ASPIRIN 81 MG ENTERIC TABLET PO (09:59)
[2025-03-03] MEDS: FERROUS SULFATE 325 MG TABLET BY MOUTH (10:00)
[2025-03-03] MEDS: buPROPion HCL SR (12 HR) 150 MG TAB PO ×2 (10:00→17:34)
[2025-03-03] MEDS: PANTOPRAZOLE 40 MG TABLET PO ×2 (10:00→17:34)
[2025-03-03] MEDS: guaiFENesin 12 HR 600 MG TABCR PO ×2 (10:00→20:23)
[2025-03-03] MEDS: ISOSORBIDE MONONITRATE 30 MG TAB.ER.24H PO (10:00)
[2025-03-03] MEDS: BRIMONIDINE TARTRATE 0.2% OP SOLN 5 ML BTL 1 DROP RIGHT EYE ×2 (10:02→14:15)
[2025-03-03] MEDS: TIMOLOL MALEATE 0.5% OP SOLN 5 ML BOTTLE 1 DROP RIGHT EYE ×2 (10:11→14:15)
[2025-03-03] MEDS: ATORVASTATIN 20 MG TABLET PO (17:34)
[2025-03-03] MEDS: GABAPENTIN 300 MG CAPSULE 600 MG PO (20:23)
[2025-03-03] MEDS: cefTRIAXone 1 GM in SODIUM CHLORIDE 0.9% IV 50 ML 100 ML IVPB (20:24)
[2025-03-04 04:32] VITALS: BP 107/50; PULSE 69; RESP 18; TEMP 36.5; O2SAT 96
[2025-03-04 05:33] LABS: Hematocrit 37.3 % (42.0-52.0); Hemoglobin 12.3 g/dL (14.0-18.0); Immature Granulocyte Percent A 1.0 % (0-0.5); Lymphocytes Absolute Auto 1.12 K/mm3 (0.9-3.2); Mean Corpuscular HGB Conc 33.0 g/dl (32-36); Mean Corpuscular Hemoglobin 34.6 pg (26-34); Mean Corpuscular Volume 104.8 fl (80-100); Nucleated Red Blood Cells Absolute Auto 0.000 K/mm3 (0.0-0.012); Nucleated Red Blood Cells Perc 0.0 % (0.0-0.2); Platelet Count Result 161 k/mm3 (150-375); Red Blood Count 3.56 M/mm3 (4.6-6.20); White Blood Count 4.9 K/mm3 (4.5-10.0)
[2025-03-04 05:56] LABS: Alanine Aminotransferase 16 U/L (6-50); Albumin Level 3.4 g/dL (3.5-5.1); Alkaline Phosphatase 101 U/L (38-126); Anion Gap 7 mmol/L (4-12); Aspartate Amino Transferase 23 U/L (17-59); Bilirubin,Total 0.4 mg/dL (0.2-1.3); Blood Urea Nitrogen 19 mg/dL (9-20); Calcium 8.6 mg/dL (8.4-10.2); Carbon Dioxide 27 mmol/L (22-30); Chloride 102 mmol/L (98-107); Estimated CRCL calculation 43 ml/min; Estimated Glomerular Filt Rate > 60; Glucose 95 mg/dL (65-110); Potassium 3.2 mmol/L (3.4-5.0); Sodium 136 mmol/L (137-145); Total Protein 6.4 g/dL (6.3-8.2)
[2025-03-04 08:02] VITALS: PULSE 96; RESP 18
[2025-03-04] MEDS: FLUTICASONE/SALMETEROL 115-21 MCG INHALER 1 PUFF 2 PUFF INHALATION (08:02)
[2025-03-04 08:05] VITALS: PULSE 69; RESP 18; O2SAT 93
[2025-03-04 08:42] VITALS: BP 113/58; PULSE 71; O2SAT 96
[2025-03-04] MEDS: buPROPion HCL SR (12 HR) 150 MG TAB PO ×2 (08:45→16:56)
[2025-03-04] MEDS: ASPIRIN 81 MG ENTERIC TABLET PO (08:45)
[2025-03-04] MEDS: PANTOPRAZOLE 40 MG TABLET PO ×2 (08:46→16:56)
[2025-03-04] MEDS: ISOSORBIDE MONONITRATE 30 MG TAB.ER.24H PO (08:46)
[2025-03-04] MEDS: guaiFENesin 12 HR 600 MG TABCR PO (08:46)
[2025-03-04] MEDS: TIMOLOL MALEATE 0.5% OP SOLN 5 ML BOTTLE 1 DROP RIGHT EYE ×2 (08:47→16:55)
[2025-03-04] MEDS: BRIMONIDINE TARTRATE 0.2% OP SOLN 5 ML BTL 1 DROP RIGHT EYE ×2 (08:47→16:54)
[2025-03-04 13:33] VITALS: BP 122/59; PULSE 67; RESP 14; TEMP 36.6; O2SAT 94
[2025-03-04] MEDS: ATORVASTATIN 20 MG TABLET PO (16:56)
--- NOTE | 2025-03-07 15:54 | PM.DS ---
DS: Admitting Diagnosis Discharge Date 03/04/25 Admitting Diagnosis UTI DS: Discharge Diagnosis Discharge Diagnosis (1) UTI (urinary tract infection): Code(s): N39.0 - Urinary tract infection, site not specified Status: Acute Assessment and Plan: -on his UA the patient has 3+ leukocyte esterase, wbc's greater than 100, positive nitrates and 1+ urine blood. -blood in urine cultures are pending. -patient was started on Rocephin pending cultures. -daily CBC 03/02: TTP to suprapubic abd upon my exam -Pending UC -Continue ceftriaxone -Continue daily CBC 03/03: TTP to suprapubic abd upon my exam but not as severe today -Pending UC -Continue ceftriaxone -Continue daily CBC -VSS 03/04: Abd suprapubic pain resolved, pt denies any urinary sx -Pending UC -To D/C with Augmentin (2) Hypertension: Code(s): I10 - Essential (primary) hypertension Status: Acute Assessment and Plan: -patient's med list is still being verified. It is unclear if the patient is still on any medication for blood pressure. -p.r.n. hydralazine. His blood pressure is currently 169/68. 03/02: Pt BPs more stable today at 120/56 Doxazosin Mesylate on med list per POA, restarted today 03/03: BP continues to be stable (3) CAD (coronary artery disease): Code(s): I25.10 - Atherosclerotic heart disease of [place] coronary artery without angina pectoris Status: Acute Assessment and Plan: -the patient stated he had a history of 4 cardiac stents. -awaiting medication clarification however it looks like the patient has been on atorvastatin in the past -we are waiting medication verification and it looks like he had been on isosorbide in the past. -continue with aspirin pending medication verification 03/02: Pt denies CP Continue ASA 81mg, atorvastatin, isosorbide mono 03/03: Pt denies CP Continue meds (4) Hyperlipidemia: Code(s): E78.5 - Hyperlipidemia, unspecified Status: Acute Assessment and Plan: Continue Atorvastatin (5) Debility: Code(s): R53.81 - Other malaise Status: Acute Assessment and Plan: -PT OT evaluation would greatly be appreciated. 03/02: PT with recs for SNF Pt prefers to go home as he has everything that he needs there. (6) Sleep apnea: Code(s): G47.30 - Sleep apnea, unspecified Status: Acute Assessment and Plan: -the patient is chronically on O2 2 L per nasal cannula. He stated that he has a CPAP machine at home but no longer uses it. 03/02: Pt found on 3L NC today, states that he has SOB but always has SOB. Will continue to monitor. 03/03: Plan to wean pt to his baseline of 2L NC 03/04: Pt to discharge on his baseline of 2L NC (7) Anemia: Code(s): D64.9 - Anemia, unspecified Status: Acute Assessment and Plan: -patient's H&H is 12.9 and 39.7 which is improved from his baseline. -no signs and symptoms of bleeding at this time. Plan Pt feeling much better. To be D/C home with oral abx. DS: Summary Hospital Course Reason for hospitalization: UTI Hospital Course: This is an 89-year-old male patient who is very hard of hearing. He has a history of hypertension and hyperlipidemia. He has developed progressive weakness over the past month. He self reports of fever over the last couple days. He denies any nausea vomiting diarrhea. He denies any chest pain or chest pressure. He stated that his urine is darker than normal. He denies any cough. His H&H is 12.9 and 39.7 which is above his baseline. Sodium is slightly low at 135. Urine is turbid 1+ urine protein, urine ketones 1+, urine blood 1+, nitrate positive, leukocyte esterase 3+, and wbc's greater than 100 in the urine. He was negative for influenza a and B, RSV and COVID. The patient was given Zofran, Vicodin, and Rocephin in the emergency room. The patient is being admitted to observation status on the date of service of 03/01/2025. Pt receiving IV rochepin abx and switched to oral Augmentin abx as he was feeling much better. Pt discharged home with the remaining course of oral abx for his UTI. Status at Discharge Overall status at discharge: patient is progressing back to baseline Time Spent with Patient Time attestation: Total time spent providing and/or coordinating discharge services: 35 Exam Const: General: cooperative, comfortable, no acute distress, well developed, awake, Physically active, average body habitus and well nourished Nutritional Appearance: average body habitus and well nourished Orientation/consciousness: oriented to person, oriented to place, oriented to time and patient oriented x3 Other: He is a poor historian. HENMT: Head: normal to inspection, No palpable skull fracture present, normocephalic, atraumatic and abrasion Ears: external ears normal Other: +BIG SANDY Eyes: General: appearance normal, both eyes and all related structures Alignment and Position: alignment normal Periorbital: periorbital findings normal Eyelids: eyelids normal Pupils: Equal, round and reactive pupils present Neck: Neck: normal visual inspection, full ROM, no lymphadenopathy, trachea midline and supple Chest: Chest palpation & inspection: normal inspection of the chest Resp: Effort & Inspection: normal respiratory effort Auscultation: clear to auscultation bilaterally Cardio: Palpation: normal PMI Rate: regular rate Rhythm: regular rhythm Heart sounds: S1 normal heart sound present and S2 normal heart sound present Peripheral pulses: Peripheral pulses 2+ throughout GI: Inspection: normal to inspection Auscultation: normal bowel sounds Rectal Exam: deferred Other: TTP suprapubic abd resolved Back/Spine/Pelvis: Cervical Spine: cervical ROM normal Skin: General skin exam: normal color Lesions: no lesions Rashes: no rashes Trauma: no lacerations or abrasions Wounds: no wounds Hair: normal Nails: normal Neuro: General: oriented to person, oriented to place, oriented to time and patient oriented x3 Cranial nerves: Yes Equal, round and reactive pupils present and Yes Normal hearing present Cognition (Neuro): normal cognition Speech: normal speech Other: R hand focal tremor Extrem: General: normal to inspection Right upper extremity: normal to inspection and shoulder/upper arm Left upper extremity: normal to inspection and shoulder/upper arm Right lower extremity: normal to inspection Left lower extremity: normal to inspection Psych: Appearance: grossly normal Mental Status: mental status grossly normal Speech and movement: Normal speech and movement present Affect: normal affect Attitude: cooperative Thought process: Normal thought process present DS: Data Data Completed and Pending Completed studies during hospitalization: Blood, urine, CXR Pending studies at discharge: UC, BC Labs on day of discharge: Preliminary micro results at discharge 03/02/25 01:14 Blood Culture - Preliminary Blood 03/02/25 01:14 Blood Culture - Preliminary Blood Discharge Plan Discharge Attending physician on discharge: Cory Galvez Consulting providers: Gerald Mo; Cheri Ferguson; Griffin Young Discharging Clinician: Leti Bryan Anticipated Discharge Date/Time: 03/04/25 14:00 Patient Disposition: Home Activity: may shower Diet: heart healthy Discharge Instructions: 1. Take the whole dose of your medication for your urinary tract infection, it is called Augmentin (Amoxicillin-clavulanate) so it completely goes away, do not take this on an empty stomach. Continue to check your blood pressure and blood sugar at home if applicable. Keep your scheduled appts with your primary care provider and any specialist that you may see. Return to the emergency department if you develop sudden shortness of breath, chest pain, a fever of greater than 101.5, or nausea, vomiting, abd pain, or diarrhea that does not go away. Follow-up with your primary care provider within 1-2 weeks, they will want to be updated on your inpatient stay in the hospital. Thank you for [facility] [place] for your healthcare needs. Patient Instructions: Antibiotic Form, Aspirin (By mouth), Amoxicillin/Clavulanate Potassium (By mouth), Urinary Tract Infection in Men (DC), Safe Use of Anticoagulants (GEN), Blood Thinners (GEN) Patient Language: Citizen Of [place] Stand Alone Forms: General Discharge Information Follow-up/Referrals: Randy,Irwin Black MD [Primary Care Provider, Unknown] - 2 Weeks Discharge Medications: New amoxicillin-pot clavulanate 875-125 mg tablet 1 tablet PO Q12H Qty: 10 0RF Continued ferrous sulfate 325 mg (65 mg iron) tablet 325 mg PO DAILY Patient Comments: takes w/ dinner guaifenesin [Mucus Relief ER] 600 mg Tablet Extended Release 12hr 600 mg PO Q12HR bupropion HCl 150 mg tablet sustained-release 12 hr 150 mg PO BID Patient Comments: takes second dose w/ dinner atorvastatin 20 mg tablet 20 mg PO DAILY Patient Comments: takes w/ dinner isosorbide mononitrate 30 mg tablet extended release 24 hr 30 mg PO DAILY doxazosin 4 mg tablet 4 mg PO HS budesonide-formoterol [Symbicort] 160-4.5 mcg/actuation HFA aerosol inhaler 2 puff inhalation BID Aspir-81 81 mg PO DAILY latanoprost 0.005 % drops 1 drp RIGHT EYE HS albuterol sulfate 90 mcg/actuation HFA aerosol inhaler 2 puff INHALATION PRN PRN (Reason: Wheezing) brimonidine-timolol [Combigan] 0.2-0.5 % drops 1 drp RIGHT EYE .COMPLEX Rx Instructions: 1 drop into right eye at 0900 and 1200; omeprazole 40 mg capsule,delayed release(DR/EC) 40 mg PO DAILY gabapentin 600 mg tablet 600 mg PO HS Date of admission: 03/02/25 15:00 Primary Care Provider: Randy,Irwin Black Admitting Provider: Cory Galvez Attending physician on admission: Leti Bryan Condition: Stable Quality VTE Prophylaxis VTE prophylaxis: mechanical ordered Hospitalist MIPS Heart Failure (Exclusion) Patient has history of Heart Transplant or Left Ventricular Assistive Device?: No IF YES, STOP HERE Heart Failure (Qualifier) Patient has current or prior documentation of LVEF less than or equal to 40%, or mod/servere depressed LVSF?: No IF NO, STOP HERE
== END 2025-03-04 17:20 | disposition home or self-care (01) | DRG 689 ==
LOC: ANHED 18:13 → ANH3MEDSUR 20:22 → ANH2MED 20:56
PROVIDERS: Nurse Practitioner; Admitting Provider Internal Medicine; Emergency Provider Emergency Medicine; PCP Internal Medicine
DX: N39.0 Urinary tract infection, site not specified (principal); M31.19 Other thrombotic microangiopathy; I10 Essential (primary) hypertension; I25.10 Atherosclerotic heart disease of native coronary artery without angina pectoris; E78.5 Hyperlipidemia, unspecified; D64.9 Anemia, unspecified; R53.81 Other malaise; H40.9 Unspecified glaucoma; H54.8 Legal blindness, as defined in USA; I73.9 Peripheral vascular disease, unspecified; J44.9 Chronic obstructive pulmonary disease, unspecified; R06.02 Shortness of breath; R25.1 Tremor, unspecified; B96.20 Unspecified Escherichia coli [E. coli] as the cause of diseases classified elsewhere; Z74.1 Need for assistance with personal care; Z20.822 Contact with and (suspected) exposure to COVID-19; Z87.891 Personal history of nicotine dependence; Z99.81 Dependence on supplemental oxygen; Z91.148 Patient's other noncompliance with medication regimen for other reason; Z87.19 Personal history of other diseases of the digestive system; Z95.1 Presence of aortocoronary bypass graft
CPT/HCPCS: 36415; 71046; 80048; 80053; 81001; 85025; 85027; 87040; 87086; 87186; 87637; 93005; 94640; 96365; 97161; 97166; 99285; A9270; G0378; J0696

== ENCOUNTER 2025-05-26 14:30 | Emergency (ER) | payer MEDICARE, SELFPAY ==
[2025-05-26 14:32] VITALS: BP 107/49; PULSE 61; RESP 20; TEMP 36.3; O2SAT 92
--- OUTSIDE RECORDS SUMMARY | 2025-05-26 14:32 | XMS_ITS | Clinical Summary ---
Author Organization [facility] Address [address] [place] [id number] Care Team Providers Care Space Controller Name Role Phone Angelo Mccloud MD Primary Care Provider [phone] Allergies No known active allergies Medications budesonide-formo [...] (12/16/2020): Added automatically from request for surgery [id number] CAD (coronary artery disease) 09/22/2020 Overview (09/22/2020): Added automatically from request for surgery [id number] SOB (shortness of breath) 09/22/2020 Overview (09/22/2020): Added automatically from request for surgery [id number] Surgical History Surgery Date Site/Laterality Comments CARDIAC [...] on file 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 [employer] [id number] X / / Explanted Type Area Tanker Driver Device Identifier Shelf Expiration Date Model / Serial / Lot [employer] [id number] Inlay Bauxite 7fr 28cm Pusher Fluoro Marker Atraumatic Insertion Latex Free - [id number] Implanted:Qty: 1 on 01/01/2021 by Martin Alvarado MD at [facility] Explanted:Qty: 1 on 01/16/2021 Left: Ureter [employer] 06/26/2025 [id number] / / [id number] Insurance [facility] MED[facility] Address: [address] [address] [facility]IC[facility] Address: [address] [address] [place] [address] [facility] MEDICARE ADVANTAGE [facility] MED[facility] Address: [address] [address] [place] [address] Advance Directives For more information, please contact: [phone] * Full Code (Latest Code Status on File) Date Activated Date Inactivated Comments 09/29/2020 10:32 AM 10/01/2020 6:10 PM Care Teams Space Controller Relationship Specialty Start Date End Date Angelo Mccloud MD [address] [place] [address] PCP - General 10/01/20
--- OUTSIDE RECORDS SUMMARY | 2025-05-26 14:32 | XMS_ITS | Clinical Summary ---
Author Organization [facility] Address [facility] [place] [address] Care Team Providers Care Mechanical Engineering Professor Name Role Phone Unavailable Primary Care Provider [...] 75+ series) 10/31/2010 COVID-19 Vaccine ( - 2024-2 6 season) 2025 Influenza Adult (#1) 2025 Hepatitis A Vaccines Aged Out No long er eligible based on patient's age to complete this topic Meningococcal B Vaccine Aged Out No l onger eligible based on patient's age to complete this topic Meningococcal Vaccine Aged Out No amber isaiah eligible based on patient's age to complete this topic RSV Immunizations Under 20 Months Aged Out No longer eligible based on patient's age to complete this topic
--- OUTSIDE RECORDS SUMMARY | 2025-05-26 14:32 | XMS_ITS | Continuity of Care Document ---
Author Organization [place] - [facility], [facility] Internal [facility] Address [address] [place] [address] Assessment No assessment recorded. Plan of Treatment Reminders Order Date Submit Date Provider Last Modified By Organization Details Last Modified Time Details Appointments None recorded. Lab vitamin D, 25-hydroxy, total, serum 2024 [email or web address] [facility], 2022 Brianne Chaney, [facility] [address], [place], [address], 15:04:21 CMP, serum or plasma 2024 [email or web address] [facility], 2022 Brianne Chaney, [address], [place], [address], 15:04:21 CBC w/ auto diff 2024 [email or web address] [facility], 2022 Brianne Chaney, [address], [place], [address], 15:04:21 lipid panel, serum 2024 [email or web address] [facility], 2022 Brianne Chaney, [address], [place], [address], 15:04:21 Referral None recorded. Procedures None recorded. Surgeries None recorded. Imaging None recorded. Medication Orders fluticasone propionate 50 mcg/actuati on nasal spray,suspe nsion 2024 [facility], [address] [place], [address], 5 17:02:08 isosorbide mononitrate ER 30 mg tablet,exte nded release 24 hr 2024 [facility], [address] [place] [address], [address], 5 16:52:55 atorvastati n 20 mg tablet 2024 [facility], [address] [place] [address], [address], 5 16:52:55 gabapentin 600 mg tablet 2024 [facility] [address], [address] [place] [address], [address], 5 16:52:56 Patient TargetsNo targets recorded. Patient InstructionsNo instructions recorded. Reason for Referral None Reported. Problems Name Problem SNOMED Code Status Onset Date Resolution Date Notes Provider Name and Address Organization Details Recorded Time Hammer toe 464826425 Completed Not Available [facility] 12:48:57 Chronic obstructi ve pulmonary disease 38991355 Active Not Available [facility] 12:48:57 Acquired trigger finger 6061861 Completed Not Available [facility] 12:48:57 Backache 582617007 Completed Not Available [facility] 12:48:57 Cobalamin deficienc y 250098270 Active Not Available [facility] 12:48:57 Insomnia 982950132 Active Not Available [facility] 12:48:57 Gastroeso phageal reflux disease 704435202 Active Not Available [facility] 12:48:58 Glaucoma 65049323 Active Not Available [facility] 12:48:58 Headache 39006133 Completed Not Available [facility] 3 12:48:58 Ankle edema 01525406 Completed Not Available [facility] 3 12:48:58 Benign prostatic hyperplas ia 046467733 Active Not Available [facility] 3 12:48:58 Anemia 899398965 Active Not Available [facility] 3 12:48:58 Malaise and fatigue 178245348 Completed Not Available [facility] 3 12:48:58 Ureteric stone 63974195 Completed Not Available [facility] 3 12:48:58 Bronchiti s 24985133 Completed Not Available [facility] 3 12:48:58 Depressiv e disorder 07092497 Active Not Available [facility] 3 12:48:58 Sinusitis 99231696 Completed Not Available [facility] 3 12:48:58 Osteoarth ritis 524820299 Active Not Available [facility] 3 12:48:59 Insect bite reaction 053263460 Completed Not Available [facility] 3 12:48:59 Pain of shoulder region 61415501 Completed Not Available [facility] 3 12:48:59 Anxiety 89695555 Active Not Available [facility] 3 12:48:59 Cough 23144926 Completed Not Available [facility] 3 12:48:59 Hyperlipi demia 28264557 Active Not Available [facility] 3 12:49:00 Sleep apnea 04212696 Active Not Available [facility] 3 12:49:00 Perniciou s anemia 97951724 Active Not Available [facility] 3 12:49:00 Pain in limb 12781451 Completed Not Available [facility] 3 12:49:00 Disorder of skin 35184603 Completed Not Available [facility] 3 12:49:00 Kidney stone 85372736 Active Not Available [facility] 3 12:49:01 Coronary atheroscl erosis 701482870 Active 2010 s/p stent Not Available [facility] 3 12:48:59 Prostate specific antigen outside reference range 881181324 Active 2018 Not Available [facility] 3 12:48:57 Solitary nodule of lung 838837159 Active 2020 Not Available [facility] 3 12:48:59 Coronary arteriosc lerosis 37674348 Active 2020 Not Available [facility] 3 12:48:59 Multiple nodules of lung 747727665 Active 2021 Not Available [facility] 3 12:48:59 COVID-19 477436468 Completed 202101/19/2022 Not Available [facility] 3 12:49:00 Abdominal pain 08828433 Completed 202107/09/2022 Not Available [facility] 3 12:48:57 Impacted cerumen in left ear 35011120178 13397 Active 2021 Not Available [facility] 3 12:48:57 Neuropath y 208326193 Active 2021 Not Available [facility] 3 12:48:58 Essential hypertens ion 63103326 Active 2022 DELMER Ortiz [address], [address], [place], [address] , [employer] 5 14:02:41 Essential tremor 357460253 Active 2022 Not Available 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 Active 2022 Irwin Padilla MD [address], [address], [place], [address] , [employer] 3 15:59:35 Gastroint estinal hemorrhag e 14318165 Active 2022 Irwin Padilla MD [address], [address], [place], [address] , [employer] 3 14:27:05 Kidney disease 52114023 Active 2023 Irwin Padilla MD [address], [address], [place], [address] , [facility] [place] [facility] 4 15:56:39 Impacted cerumen of bilateral ears 20320924438 26544 Active 2023 Irwin Padilla MD [address], [address], [place], [address] , [facility] - [facility] 4 15:57:01 Unsteady when walking 69831784 Active 2023 Irwin Padilla MD [address], [address], [place], [address] , [facility] - [facility] 4 15:57:11 Rhinitis 21217112 Active 2023 Irwin Padilla MD [address], [address], [place], [address] , [facility] - [facility] 4 16:49:00 Abnormal gait due to muscle weakness 331335272 Active 2023 Kusum Becker NP [address], [address], [place], [address] , [facility] - [facility] 4 16:35:15 Weakness present 764104694 Active 2023 Janeth Young MA null, [place] - [facility] 4 16:59:09 Vitamin D deficienc y 32702365 Active 2023 Irwin Padilla MD [address], [address], [place], [address] , [facility] - [facility] 4 16:06:27 Carotid artery stenosis 86214973 Active 2023 Irwin Padilla MD [address], [address], [place], [address] , [facility] - [facility] 4 16:10:26 Nausea 723444365 Active 2023 Kusum Becker NP [address] [facility], [address], [place], [address] , [place] - [employer] [facility] [employer] 4 12:55:38 Community acquired pneumonia 255614190 Active 2024 Irwin Padilla MD [address], [address], [place], [address] , [place] [employer] [facility] [employer] 15:08:17 Hypoxia 078573922 Active 2024 Irwin Padilla MD [address], [address], [place], [address] , [employer] [facility] [employer] 15:08:39 Tinea hawas 653129791 Active 2024 Irwin Padilla MD [address] [facility] [address], [address], [place], [address] , [employer] [facility] [employer] 15:14:57 Notes:Some problems listed i n Document: #[id number] could not be added to this patient's chart. Please review this document and add these problems to the patient's chart manually as needed. Problem Notes None recorded. Procedures Surgical History Date Name Laterality Status Provider Name and Address Organization Details Recorded Time 03/12/20 25 Transitional_Care_ Management completed DELMER Ortiz [address] [facility], [address], [place], [address], [employer] 03/12/2025 14:54:16 10/30/19 25 Transitional_Care_ Management completed Irwin Padilla MD [address] [facility], [address], [place], [address], [employer] [facility] [employer] 10/29/2024 15:09:19 03/12/20 24 Medicare Wellness CPT Code, subsequent completed Leslie Fontana RN [place] [employer] 03/13/2024 08:56:23 05/19/20 23 Transitional_Care_ Management completed HOLLIS Liu [employer] 05/19/2023 14:05:01 04/30/20 15 lithotripsy completed Not Available [employer] 07/28/2022 12:46:27 cholecystectomy completed Not Available [facility] 07/28/2022 12:46:27 other completed Not Available [facility] 07/28/2022 12:46:27 Excisions - Specify completed Not Available [facility] 07/28/2022 12:46:27 Genitourinary Surgery completed Not Available [facility] 07/28/2022 12:46:27 other completed Not Available [facility] 07/28/2022 12:46:27 Imaging Results None recorded. Procedure [...] by mouth twice daily 2024 active [facility] 04/24/25 ok to rf Not Available Not Available Not Available gabapenti n 600 mg tablet TAKE 1 TABLET BY MOUTH ONCE DAILY AT BEDTIME 2024 active [facility] 10/29/24 ok to rf Not Available Not Available Not Available doxycycli ne hyclate 100 mg capsule TAKE 1 CAPSULE BY MOUTH TWICE DAILY FOR 5 DAYS 03/12 completed Not Available Not Available Not Available atorvasta tin 20 mg tablet TAKE 1 TABLET BY MOUTH AT BEDTIME 2024 active Not Available Not Available Not Avai lable azithromy stefan 250 mg tablet TAKE 1 TABLET BY MOUTH ONCE DAILY 03/12 completed Not Available Not Available Not Available ofloxacin 0.3 % eye drops 12/06 [...] omeprazol e 40 mg capsule,d elayed release TAKE 1 CAPSULE BY MOUTH ONCE DAILY IN THE MORNING active Not Available Not Available No t Available cyclopent olate 1 % eye drops [...] Not Available Not Available Not Available cyanocoba alicia (vit B-12) 1,000 mcg/mL injection solution Inject [...] No t Available doxazosin 4 mg tablet TAKE 1 TABLET BY MOUTH ONCE DAILY active Not Available Not Available No t Available aspirin 81 mg chewable tablet Chew [...] MOUTH EVERY 12 HOURS FOR 5 DAYS 03/12 completed Not Available Not Available Not Available fluticaso ne propionat e 50 mcg/actua tion nasal spray,raoul pension Use 2 spray(s) in each nostril once daily 2024 active Not Available Not Available Not Avai lable finasteri de 5 mg tablet Take 1 tablet every day by oral route. active Not Available Not Available No t Available loratadin e 10 mg tablet TAKE 1 TABLET BY MOUTH IN THE MORNING active Not Available Not Available No t Available amoxicill in 875 mg-potass ium clavulana te 125 mg tablet TAKE 1 TABLET BY MOUTH EVERY 12 HOURS 03/12 completed Not Available Not Available Not Available Ventolin HFA 90 mcg/actua tion aerosol [...] 160 mcg-4.5 mcg/actua tion HFA aerosol inhaler INHALE 2 PUFFS BY MOUTH TWICE DAILY active Not Available Not Available No t Available Combigan 0.2 %-0.5 % eye drops [...] Not Available Not Available No t Available Breztri Aerospher e 160 mcg-9mcg- 4.8mcg/ac tuation HFA aerosol inhaler Inhale 2 puffs twice a day by inhalati on route. 2022 active Not Available Not Available Not Avai lable Vitals Date Recorded Body height Body temperature Heart rate Systolic And Diastolic Provider Name and Address Organization Details Last Updated DateTime 04/24/2025 176.53 cm 97.4 [degF] 58 /min 110/60 mm[Hg] Ofelia Park n, RMA [place] Proenza Schouer [facility] [employer] 04/24/2025 16:32:40 Social History Question Answer Notes LastModified by Organization Details LastModified Time Tobacco Smoking Status Former Smoker Leslie Fontana RN [facility], [place] Proenza Schouer [facility] [employer] 03/12/2024 16:23:55 Do You Have An Advance Directive? No Not On Hand Paperwork Provided 03/12/2024 [email or web address] Information not available 03/12/2024 Are You Blind Or Do You Have Difficulty Seeing? Yes [email or web address] Information not available 03/12/2024 Is Blood Transfusion Acceptable In An Emergency? Yes [email or web address] Information not available 03/12/2024 What Is Your Level Of Caffeine Consumption? Occasional [id number] [id number] Information not available 07/28/2022 How Much Tobacco Do You Chew? None [email or web address].0301 [id number] Information not available 07/28/2022 In The 14 Days Before Symptom Onset, Have You Had Close Contact With A Laboratory-conf ngoc ALTMAN-19 While That Case Was Ill? 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 REGULAR [email or web address].[id number] [id number] Information not available 07/28/2022 Which Illicit Or Recreational Drugs Have You Used? None [email or web address].[id number] [id number] Information not available 07/28/2022 What Is The Highest Grade Or Level Of School You Have Completed Or The Highest Degree You Have Received? [id number] Information not available 03/12/2024 How Many Days Of Moderate To Strenuous Exercise, Like A Brisk Walk, Did You Do In The Last 7 Days? 0 [email or web address] Information not available 03/12/2024 What Is The Fluoride Status Of Your Home? Fluoridated [email or web address] Information not available 03/12/2024 Do You Use Insect Repellent Routinely? No [email or web address] Information not available 03/12/2024 Where Do You Live? [facility] [email or web address] Information not available 03/12/2024 Presence Of Domestic Violence No [email or web address] Information not available 03/13/2024 Are You Able To Care For Yourself? No [email or web address] Information not available 03/13/2024 Are You Blind Or Do Yo Have Difficulty Seeing? Yes [email or web address] Information not available 03/13/2024 Are You Deaf Or Do You Have Serious Difficulty Hearing? No [email or web address] Information not available 03/13/2024 General Stress Level? Moderate [email or web address] Information not available 03/13/2024 Live Alone Of With Others? With Others [email or web address] Information not available 03/13/2024 Do You Have A Medical Power Of Drapery Rod Assembler? Yes [email or web address] Information not available 03/12/2024 What Was The Date Of Your Most Recent Tobacco Screening? 03/12/2024 [email or web address] Information not available 03/12/2024 How Many Children Do You Have? 2 [email or web address] Information not available 03/12/2024 Do You Have Any Pets? No [email or web address] Information not available 03/12/2024 Do You Use Protection During Sex? No [email or web address] Information not available 03/12/2024 What Is Your Relationship Status? [email or web address] Information not available 03/12/2024 Do You Use Your Seat Belt Or Car Seat Routinely? No [email or web address] Information not available 03/12/2024 Are You Sexually Active? Yes [email or web address] Information not available 03/12/2024 Do You Have Smoke And Carbon Monoxide Detectors In Your Home? Yes [email or web address] Information not available 03/12/2024 Are You Passively Exposed To Smoke? No [email or web address] Information not available 03/12/2024 Are There Any Smokers In Your House? No [email or web address] Information not available 03/12/2024 How Much Tobacco Do You Smoke? 1 PPD [email or web address] Information not available 03/12/2024 What Types Of Sporting Activities Do You Participate In? None [email or web address] Information not available 03/12/2024 Do You Use Sunscreen Routinely? No [email or web address] Information not available 03/12/2024 Have You Recently Traveled Abroad? No [email or web address] Information not available 03/12/2024 Do You Have Difficulty Walking Or Climbing Stairs? Yes [email or web address] Information not available 03/12/2024 Do You Have Any Dietary Restrictions? No [email or web address] Information not available 03/12/2024 Sex: Male Functional Status Question Answer Note LastModified by Organizat ion Details LastModified Time Do you use any illicit or recreational drugs? No [email or web address] Information not available 03/12/2024 What is your level of alcohol consumption? None [email or web address] Information not available 03/12/2024 Are you currently employed? No [email or web address] Information not available 03/12/2024 Do you have transportation difficulties? No [email or web address] Information not available 03/12/2024 Are you able to walk independently without assistance or assistive devices? YESASSIST [email or web address] Information not available 03/12/2024 Do you have difficulty doing errands alone? No [email or web address] Information not available 03/12/2024 Are you able to care for yourself independently? 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 No [email or web address] Information not available 03/12/2024 What is your exercise level? None [id number] Information not available 07/28/2022 Mental Status Question Answer Note LastModified by Organizat ion Details LastModified Time Do you feel stressed (tense, restless, nervous, or anxious, or unable to sleep at night)? [id number] [email or web address] Information not available 03/12/2024 Do you have difficulty concentrating, remembering or making decisions? No [email or web address] Information no t available 03/12/2024 Family History Nothing Reported Notes:ADOPTED Medical History Condition Response HEARTBURN / REFLUX Y HYPERTENSION Y HIGH CHOLESTEROL / HYPERLIPIDEMIA Y Immunizations Vaccine Type Date Status Note Provider Nam e and Address Organization Details Recorded Time Pneumococcal conjugate PCV21, polysaccharide TYO388 conjugate, PF 5 completed Katie dotson, [place] [employer] [facility] 03/12/2025 14:40:46 COVID-19 vaccine, vector-nr, rS-Ad26, PF, 0.5 mL 1 completed Not Available [facility] 04/24/2025 16:30:19 Influenza, split virus, trivalent, preservative 3 completed Not Available [facility] 07/28/2022 12:52:30 Pneumococcal conjugate PCV 13 6 completed Not Available [facility] 07/28/2022 12:52:30 Influenza, split virus, trivalent, PF 4 completed Not Available [employer] 07/28/2022 12:52:30 Past Encounters Encounter ID Performer Location Encounter Start Date Encounter Closed Date Diagnosis/Indication Diagnosis SNOMED-CT Code Diagnosis ICD10 Code Diagnosis IMO Codes Diagnosis Note [id number] Irwin Padilla MD [facility] [address] [place] [address] 04/24/2025 16:28:45 04/24/2025 16:58:54 Hyperlipidemia 82595696 E78.5 under control Essential hypertension 46864799 I10 under control Neuropathy 119644149 G62 .9 Gastroesop hageal reflux disease 104856908 K21.9 better Depressive disorder 3548 9007 F32.A under control with meds Coronary atherosclerosis 061911283 I25.10 no symptoms, Cobalamin deficiency 190 820388 E53.8 on oral, on hold Chronic ob structive pulmonary disease 32244502 J44.9 under control Benign pro static hyperplasia 953572866 N40.0 stable Anemia 877873654 D64.9 on iron pills , Multiple n odules of lung 849707568 R91.8 CT scan 04/20 Osteoarthritis 878437926 M19.90 OTC Sleep apnea 80225090 G47 .30 no CPAP Essential tremor 6715220 09 G25.0 mild Adult heal th examination 985032249 Z00.00 Colonoscop y- SA - 07/31/2018 , no more neededPneu movax- Has had bothFLU- Declined- OVID- Has had 1 vacc- J&J Interstiti al lung disease 697962663 J84.9 no symptoms Kidney disease 28068997 N08 advised to drink more water, Unsteady when walking 22 866877 R26.89 taking precaution s Vitamin D deficiency 347 02298 E55.9 otc Carotid ar medardo stenosis 14830299 I65.29 on asa Rhinitis 41409609 J00 otc Health Concerns Section Related Observation LastModified by Organization Detai ls LastModified Time None Recorded Concern Status LastModified by Organization Details LastModified Time None Recorded Payers Encounter Date Sequence Insurance Name Policy Number Policy Trimble Covered Member ID Trimble Member ID Guarantor Name 04/24/2025 1 [facility] (MEDICARE REPLACEMENT/A DVANTAGE - PPO) [id number] Rogerio Vivar [id number] Rogerio Vivar Notes Date Note Type Note Provider Name and Address Organization Details Recorded Time 04/24/2025 text/html Pt here today for his annual shani\ck HTN- under control with medsMeds-Isosorbide ER 30 mg qd COPD- inhalers help, started on o2 at night since 05/22Meds- Breztri bid, alb inhaler prn Insomnia-otc helps prn, B12 def- on oral b12 daily, levels [...] not getting worse Irwin Padilla MD [address] [facility], [facility] [address], [place], [address], [place] [employer] [facility] [employer] 04/24/2025 17:02:18
--- OUTSIDE RECORDS SUMMARY | 2025-05-26 14:33 | XMS_ITS | Data Portability ---
Author Organization [place] - [facility], Main Office Address [address] [place] [address] Assessment Encounter Date Assessment Date Assessment LastModified by Organization Details LastModified Time 10/29/2024 10/29/2024 I have reconciled the patient's medications post their discharge from inpatient facility. Not available 10/29/2024 15:09:19 03/12/2025 03/12/2025 I have reconciled the patient's medications post their discharge from inpatient facility. [email or web address] Not available 03/11/2025 13:42:11 Plan of Treatment Reminders Order Date Submit Date Provider Last Modified By Organization Details Last Modified Time Details Appointments None recorded. Lab vitamin D, 25-hydroxy, total, serum 2024 025 [email or web address] [facility], [address], [place], [address], 15:04:21 CMP, serum or plasma 2024 025 [email or web address] [facility], [address], [address], [place], [address], 15:04:21 CBC w/ auto diff 2024 025 [email or web address] [facility], [address], [address], [place], [address], 15:04:21 lipid panel, serum 2024 025 [email or web address] [facility], [address], [address], [place], [address], 5 15:04:21 BMP, serum or plasma 2024 025 5 [facility] (Lab), [address] [place], [address], 5 09:49:50 CBC w/ auto diff 2023 [facility] (Lab), [address] [place], [address], 4 14:14:16 lipid panel, serum 2023 [facility] (Lab), [address] [place], [address], 4 14:44:49 ferritin, serum or plasma 2023 [facility] (Lab), [address] [place], [address], 4 15:20:47 iron + total iron-bindin g capacity (TIBC), serum 2023 [facility] (Lab), [address] [place], [address], 4 14:37:48 vitamin D, 25-hydroxy, total, serum 2023 [facility] (Lab), [address] [place], [address], 4 16:14:24 CMP, serum or plasma 2023 [facility] (Lab), [address] [place], [address], 4 14:44:46 vitamin B12, serum 2023 [facility] (Lab), [address] [place], [address], 4 15:59:44 Referral None recorded. Procedures None recorded. Surgeries None recorded. Imaging US, duplex, carotid artery - Please call patient to schedule. 2023 [facility] ([facility] Sched[facility]), [address] [place], [address], 4 07:25:59 Medication Orders fluticasone propionate 50 mcg/actuati on nasal spray,suspe nsion 2024 [facility], [address] [place] [address], [address], 5 17:02:08 isosorbide mononitrate ER 30 mg tablet,exte nded release 24 hr 2024 025 [facility], [address] [place] [address], [address], 5 16:52:55 atorvastati n 20 mg tablet 2024 025 [facility], [address] [place] [address], [address], 5 16:52:55 gabapentin 600 mg tablet 2024 025 [facility], [address] [place] [address], [address], 5 16:52:56 ketoconazol e 2 % topical cream 2024 [facility], [address] [place] [address], [address], 5 15:16:12 omeprazole 40 mg capsule,del ayed release 2023 024 [facility], [address] [facility], [place], [address], 16:06:48 Patient TargetsNo targets recorded. Patient Instructions Encounter Date Encounter Id Patient Instructions Last Modified By Organization Details Last Modified Time 03/12/2024 [id number] dementia rating scale-2* Not available 03/13/2024 14:26:52 alcohol misuse* Not available 03/13/2024 14:26:52 depression screening* Not available 03/13/2024 14:26:52 Timed Up and Go test (TUG)* Not available 03/13/2024 14:26:52 multi-dimensiona health assessment questionnaire* Not available 03/13/2024 14:26:53 advance care planning: care instructions Not available 03/13/2024 14:26:52 advance directiv es: care instructions Not available 03/13/2024 14:26:52 [place] Advance Directives Not available 03/13/2024 14:26:52 Personalized [...] Positive Active diagnosis, Continue current treatment plan [email or web address] Not available 03/13/2024 09:14:27 10/29/2024 [id number] Thank you for yo ur visit to [...] Equipment needed: oxygen Billing Guidelines CPT code 46013- Transitional Care Management services with moderate medical decision complexity (lsqq-im-tdvv visit within 14 days of discharge). CPT code 70402- Transitional Care Management services with high medical decision complexity (crcw-wx-erzj visit within 7 days of discharge). Not available 10/29/2024 15:09:44 03/12/2025 [id number] Thank you for yo ur visit to [...] at home, please call us to discuss. [email or web address] Not available 03/11/2025 13:42:11 Homebound Status : Does not meet homebound status Required Home Health Services: nonec, declined Durable Medical Equipment needed: none Billing Guidelines CPT code 55292- Transitional Care Management services with moderate medical decision complexity (ddpn-qo-vgln visit within 14 days of discharge). CPT code 94082- Transitional Care Management services with high medical decision complexity (vtxd-ni-nsiw visit within 7 days of discharge). [email or web address] Not available 03/12/2025 14:53:36 Reason for Referral None Reported. Results Created Date Observation Date Name Description Value Unit Range Abnormal Flag Note LastModifiedBy Organization Detail LastModifiedTime 03/20/2003/20/2024 CBC/C OMPLE TE BLD COUNT W/DIF F white blood cells 5.0 x10'3 /uL 4.2-10 .8 Not Available [facility] (Lab) [address] [place], [address], 03/20/2024 15:04:51 03/20/2003/20/2024 CBC/C OMPLE TE BLD COUNT W/DIF F red blood cells 4.07 x10'6 /uL 4.10-5 .80 low Not Available [facility] (Lab) [address] [place], [address], 03/20/2024 15:04:51 03/20/2003/20/2024 CBC/C OMPLE TE BLD COUNT W/DIF F hemoglobin 14.3 g/dL 13.2-1 7.0 Not Available [facility] (Lab) [address] [place], [address], 03/20/2024 15:04:51 03/20/2003/20/2024 CBC/C OMPLE TE BLD COUNT W/DIF F hematocrit 43.0 % 39.3-5 0.0 Not Available [facility] (Lab) [address] [place], [address], 03/20/2024 15:04:51 03/20/20 24 03/20/2024 CBC/C OMPLE TE BLD COUNT W/DIF F mean red cell volume 105.7 fL 80.0-9 7.0 high Not Available [facility] (Lab) [address] [place], [address], 03/20/2024 15:04:51 03/20/2003/20/2024 CBC/C OMPLE TE BLD COUNT W/DIF F mean red cell hemoglobin 35.1 pg 27.0-3 3.0 high Not Available [facility] (Lab) [address] [place], [address], 03/20/2024 15:04:51 03/20/2003/20/2024 CBC/C OMPLE TE BLD COUNT W/DIF F mean RBC HGB concentratio n 33.3 g/dL 31.0-3 6.0 Not Available [facility] (Lab) [address] [place], [address], 03/20/2024 15:04:51 03/20/2003/20/2024 CBC/C OMPLE TE BLD COUNT W/DIF F red cell distribution width 13.3 % 11.8-1 5.5 Not Available [facility] (Lab) [address] [place], [address], 03/20/2024 15:04:51 03/20/20 24 03/20/2024 CBC/C OMPLE TE BLD COUNT W/DIF F platelets 194 x10'3 /uL 150-40 0 Not Available [facility] (Lab) [address] [place], [address], 03/20/2024 15:04:51 03/20/2003/20/2024 CBC/C OMPLE TE BLD COUNT W/DIF F mean platelet volume 9.6 fL 9.0-12 .4 Not Available [facility] (Lab) [address] [place], [address], 03/20/2024 15:04:51 03/20/20 24 03/20/2024 CBC/C OMPLE TE BLD COUNT W/DIF F neutrophils 65.5 % 39.0-7 2.0 Not Available [facility] (Lab) [address] [place], [address], 03/20/2024 15:04:51 03/20/2003/20/2024 CBC/C OMPLE TE BLD COUNT W/DIF F lymphocytes 20.3 % 16.0-4 7.0 Not Available [facility] (Lab) [address] [place], [address], 03/20/2024 15:04:51 03/20/2003/20/2024 CBC/C OMPLE TE BLD COUNT W/DIF F monocytes 11.8 % 5.0-12 .0 Not Available [facility] (Lab) [address] [place], [address], 03/20/2024 15:04:51 03/20/2003/20/2024 CBC/C OMPLE TE BLD COUNT W/DIF F eosinophils 1.4 % 1.0-7. 0 Not Available [facility] (Lab) [address] [place], [address], 03/20/2024 15:04:51 03/20/2003/20/2024 CBC/C OMPLE TE BLD COUNT W/DIF F basophils 0.6 % 0.0-2. 0 Not Available [facility] (Lab) [address] [place], [address], 03/20/2024 15:04:51 03/20/2003/20/2024 CBC/C OMPLE TE BLD COUNT W/DIF F immature granulocytes 0.4 % 0.00-0 .50 Not Available [facility] (Lab) [address] [place], [address], 03/20/2024 15:04:51 03/20/20 24 03/20/2024 CBC/C OMPLE TE BLD COUNT W/DIF F neutrophils, absolute count 3.26 x10'3 /uL 1.5-8. 0 Not Available [facility] (Lab) [address] [place], [address], 03/20/2024 15:04:51 03/20/20 24 03/20/2024 CBC/C OMPLE TE BLD COUNT W/DIF F lymphocytes, absolute count 1.01 x10'3 /uL 1.07-3 .43 low Not Available [facility] (Lab) [address] [place], [address], 03/20/2024 15:04:51 03/20/2003/20/2024 CBC/C OMPLE TE BLD COUNT W/DIF F monocytes, absolute count 0.59 x10'3 /uL 0.29-0 .99 Not Available [facility] (Lab) [address] [place], [address], 03/20/2024 15:04:51 03/20/20 24 03/20/2024 CBC/C OMPLE TE BLD COUNT W/DIF F eosinophils, absolute count 0.07 x10'3 /uL 0.02-0 .53 Not Available [facility] (Lab) [address] [place], [address], 03/20/2024 15:04:51 03/20/20 24 03/20/2024 CBC/C OMPLE TE BLD COUNT W/DIF F basophils, absolute count 0.03 x10'3 /uL 0.01-0 .08 Not Available [facility] (Lab) [address] [place], [address], 03/20/2024 15:04:51 03/20/20 24 03/20/2024 CBC/C OMPLE TE BLD COUNT W/DIF F immature granulocytes ,absolute 0.02 x10'3 /uL 0.00-0 .05 Not Available [facility] (Lab) [address] [place], [address], 03/20/2024 15:04:51 03/20/2003/20/2024 CBC/C OMPLE TE BLD COUNT W/DIF F nucleated red blood cells 0.0 % -0 Not Available [facility] (Lab) [address] [place], [address], 03/20/2024 15:04:51 03/20/2003/20/2024 CBC/C OMPLE TE BLD COUNT W/DIF F NRBC# 0.00 x10'3 /uL Not Available [facility] (Lab) [address] [place], [address], 03/20/2024 15:04:51 03/20/2003/20/2024 CBC/C OMPLE TE BLD COUNT W/DIF F macro OCCASI ONAL Not Available [facility] (Lab) [address] [place], [address], 03/20/2024 15:04:51 03/20/2003/20/2024 IRON/ TIBC PANEL total iron binding capacity 320 mcg/d L 265-47 5 Not Available [facility] (Lab) [address] [place], [address], 03/20/2024 14:46:41 03/20/2003/20/2024 IRON/ TIBC PANEL % transferrin saturation 32 % 20-55 Not Available [facility] (Lab) [address] [place], [address], 03/20/2024 14:46:41 03/20/2003/20/2024 IRON/ TIBC PANEL unsaturated iron bind capacity 218 mcg/d L 126-38 2 Not Available [facility] (Lab) [address] [place], [address], 03/20/2024 14:46:41 03/20/20 24 03/20/2024 IRON/ TIBC PANEL iron 102 mcg/d L 42-175 Not Available [facility] (Lab) [address] [place], [address], 03/20/2024 14:46:41 03/20/2003/20/2024 COMPR EHENS LAZARO METAB OLIC PANEL sodium 139 mmol/ L 137-14 5 Not Available [facility] (Lab) [address] [place], [address], 03/20/2024 14:44:45 03/20/2003/20/2024 COMPR EHENS LAZARO METAB OLIC PANEL potassium 4.7 mmol/ L 3.5-5. 1 Not Available [facility] (Lab) [address] [place], [address], 03/20/2024 14:44:45 03/20/2003/20/2024 COMPR EHENS LAZARO METAB OLIC PANEL chloride 103 mmol/ L 98-107 Not Available [facility] (Lab) [address] [place], [address], 03/20/2024 14:44:45 03/20/2003/20/2024 COMPR EHENS LAZARO METAB OLIC PANEL carbon dioxide 31 mmol/ L 22-30 high Not Available [facility] (Lab) [address] [place], [address], 03/20/2024 14:44:45 03/20/2003/20/2024 COMPR EHENS LAZARO METAB OLIC PANEL anion gap 9.7 mmol/ L 14-22 low Not Available [facility] (Lab) [address] [place], [address], 03/20/2024 14:44:45 03/20/2003/20/2024 COMPR EHENS LAZARO METAB OLIC PANEL glucose 102 mg/dL 70-99 high Not Available [facility] (Lab) [address] [place], [address], 03/20/2024 14:44:45 03/20/20 24 03/20/2024 COMPR EHENS LAZARO METAB OLIC PANEL BUN 20 mg/dL 8-19 high Not Available [facility] (Lab) [address] [place], [address], 03/20/2024 14:44:45 03/20/20 24 03/20/2024 COMPR EHENS LAZARO METAB OLIC PANEL creatinine 1.24 mg/dL 0.66-1 .25 Not Available [facility] (Lab) [address] [place], [address], 03/20/2024 14:44:45 03/20/2003/20/2024 COMPR EHENS LAZARO METAB OLIC PANEL GFR 55 Refer ence Range : [place] ge GFR Healt hy Adult : >60 [...] or ethni c subgr oups, such as ga nics. Outsi de the valid ated jemal [...] calcu lator is avail able on the F websi te: https ://diana w.leeann izaguirre.o rg/pr ofess ional s/kdo qi/gf r_cal culat or Not Available [facility] (Lab) [address] [place], [address], 03/20/2024 14:44:45 03/20/2003/20/2024 COMPR EHENS LAZARO METAB OLIC PANEL alkaline phosphatase 112 U/L 38-126 Not Available [facility] (Lab) [address] [place], [address], 03/20/2024 14:44:45 03/20/2003/20/2024 COMPR EHENS LAZARO METAB OLIC PANEL alanine aminotransfe rase 16 U/L 0-50 Not Available [facility] (Lab) [address] [facility] [place], [address], 03/20/2024 14:44:45 03/20/2003/20/2024 COMPR EHENS LAZARO METAB OLIC PANEL aspartate aminotransfe rase 22 U/L 15-46 Not Available [facility] (Lab) [address] [place], [address], 03/20/2024 14:44:45 03/20/2003/20/2024 COMPR EHENS LAZARO METAB OLIC PANEL bilirubin, total 0.70 mg/dL 0.20-1 .30 Not Available [facility] (Lab) [address] [place], [address], 03/20/2024 14:44:45 03/20/2003/20/2024 COMPR EHENS LAZARO METAB OLIC PANEL calcium 9.4 mg/dL 8.4-10 .2 Not Available [facility] (Lab) [address] [place], [address], 03/20/2024 14:44:45 03/20/2003/20/2024 COMPR EHENS LAZARO METAB OLIC PANEL total protein 6.2 g/dL 6.3-8. 2 low Not Available [facility] (Lab) [address] [place], [address], 03/20/2024 14:44:45 03/20/2003/20/2024 COMPR EHENS LAZARO METAB OLIC PANEL albumin 3.6 g/dL 3.0-4. 4 Not Available [facility] (Lab) [address] [place], [address], 03/20/2024 14:44:45 03/20/2003/20/2024 COMPR EHENS LAZARO METAB OLIC PANEL globulin 2.6 g/dL 2.6-4. 2 Not Available [facility] (Lab) [address] [place], [address], 03/20/2024 14:44:45 03/20/2003/20/2024 COMPR EHENS LAZARO METAB OLIC PANEL A/G ratio 1.4 ratio 1.0-2. 0 Not Available [facility] (Lab) [address] [place], [address], 03/20/2024 14:44:45 03/20/2003/20/2024 LIPID PANEL cholesterol 146 mg/dL 140-19 9 NIH RAF NSUS RECOM MENDA TION FOR THELMA STERO L: ADULT CHILD LOW RISK: <200 <170 BORDE RLINE : <200- 239 ----- HIGH RISK: >240 >200 Not Available [facility] (Lab) [address] [place], [address], 03/20/2024 14:44:49 03/20/2003/20/2024 LIPID PANEL triglyceride s 134 mg/dL 0-150 NIH RAF NSUS REPOR T RECOM MENDA TION FOR TRIGL YCERI ED: ADULT CHILD LOW RISK: <150 ----- BODER LINE: 150-1 99 ----- HIGH RISK: >200 ----- Not Available [facility] (Lab) [address] [place], [address], 03/20/2024 14:44:49 03/20/2003/20/2024 LIPID PANEL HDL cholesterol 40 mg/dL 40- Not Available [facility] (Lab) [address] [place], [address], 03/20/2024 14:44:49 03/20/2003/20/2024 LIPID PANEL LDL cholesterol, [...] WILL NOT BE REPOR RENETTA. Not Available [facility] (Lab) [address] [place], [address], 03/20/2024 14:44:49 03/20/2003/20/2024 VITAM IN D 25-HY DROXY vd25oh 43.4 NG/mL 30-100 Vitam in D Statu s: Defic ient: <20 ng/mL Insuf ficie nt: 20-29 ng/mL Suffi cient : 30-10 0 ng/mL Not Available [facility] (Lab) [address] [place], [address], 03/20/2024 15:18:55 03/20/2003/20/2024 ANDRÉS TIN ferritin 55 NG/mL 17.9-4 64 Not Available [facility] (Lab) [address] [place], [address], 03/20/2024 15:20:47 03/20/2003/20/2024 VITAM IN B12 (KHOA ANTHONY ) vb12 463 pg/mL 239-93 1 Not Available [facility] (Lab) [address] [place], [address], 03/20/2024 15:59:44 03/26/2003/22/2024 US, duple x, carot id arter y No observ ation record ed. [email or web address] [facility] [address] [place], [address], 04/03/2024 15:48:38 05/31/19 25 05/31/2024 joel holbrook [...] Address Organization Details Recorded Time Hammer toe [id number] Completed Not Available [facility] 3 12:48:57 Chronic obstructi ve pulmonary disease 34870156 Active Not Available [facility] 3 12:48:57 Acquired trigger finger 3649982 Completed Not Available [facility] 3 12:48:57 Backache 179941471 Completed Not Available [facility] 3 12:48:57 Cobalamin deficienc y 034935665 Active Not Available [facility] 3 12:48:57 Insomnia 990716274 Active Not Available [facility] 3 12:48:57 Gastroeso phageal reflux disease 459002500 Active Not Available [facility] 3 12:48:58 Glaucoma 39394831 Active Not Available [facility] 3 12:48:58 Headache 12451626 Completed Not Available [facility] 3 12:48:58 Ankle edema 34758748 Completed Not Available [facility] 3 12:48:58 Benign prostatic hyperplas ia 657310223 Active Not Available [facility] 3 12:48:58 Anemia 185455028 Active Not Available [facility] 3 12:48:58 Malaise and fatigue 660275644 Completed Not Available [facility] 3 12:48:58 Ureteric stone 04633100 Completed Not Available [facility] 3 12:48:58 Bronchiti s 47632704 Completed Not Available [facility] 3 12:48:58 Depressiv e disorder 05846784 Active Not Available [facility] 3 12:48:58 Sinusitis 53564822 Completed Not Available [facility] 3 12:48:58 Osteoarth ritis 030451910 Active Not Available [facility] 3 12:48:59 Insect bite reaction 727919745 Completed Not Available [facility] 3 12:48:59 Pain of shoulder region 21192226 Completed Not Available [facility] 3 12:48:59 Anxiety 20120504 Active Not Available [facility] 3 12:48:59 Cough 29281248 Completed Not Available [facility] 3 12:48:59 Hyperlipi demia 67959370 Active Not Available [facility] 3 12:49:00 Sleep apnea 65785258 Active Not Available [facility] 3 12:49:00 Perniciou s anemia 69550605 Active Not Available [facility] 3 12:49:00 Pain in limb 32198029 Completed Not Available [facility] 3 12:49:00 Disorder of skin 79088067 Completed Not Available [facility] 3 12:49:00 Kidney stone 60283270 Active Not Available [facility] 3 12:49:01 Coronary atheroscl erosis 155478903 Active 2010 s/p stent Not Available [facility] 3 12:48:59 Prostate specific antigen outside reference range 839299656 Active 2018 Not Available [facility] 3 12:48:57 Solitary nodule of lung 816728454 Active 2020 Not Available [facility] 3 12:48:59 Coronary arteriosc lerosis 29684733 Active 2020 Not Available [facility] 3 12:48:59 Multiple nodules of lung 667542328 Active 2021 Not Available [facility] 3 12:48:59 COVID-19 559930461 Completed 202101/19/2022 Not Available [facility] 3 12:49:00 Abdominal pain 83538006 Completed 202107/09/2022 Not Available [facility] 3 12:48:57 Impacted cerumen in left ear 59834646591 [address]7040 Active 2021 Not Available [facility] 3 12:48:57 Neuropath y 539992818 Active 2021 Not Available [facility] 3 12:48:58 Essential hypertens ion 22249002 Active 2022 DELMER Ortiz [address], [address], [place], [address] , [place] [facility] 5 14:02:41 Essential tremor 159793401 Active 2022 Not Available [facility] 3 12:49:00 Jaw pain 531871367 Active 2022 Irwin Padilla MD [address], [address], [place], [address] , [place] [facility] 3 15:44:36 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 Irwin Padilla MD [address], [address], [place], [address] , [place] [facility] 3 15:59:35 Gastroint estinal hemorrhag e 07709830 Active 2022 Irwin Padilla MD [address], [address], [place], [address] , [place] [facility] 3 14:27:05 Kidney disease 25627550 Active 2023 Irwin Padilla MD [address], [address], [place], [address] , [place] [facility] 4 15:56:39 Impacted cerumen of bilateral ears 69210525889 69322 Active 2023 Irwin Padilla MD [address], [address], [place], [address] , [facility] 4 15:57:01 Unsteady when walking 20404483 Active 2023 Irwin Padilla MD [address], [address], [place], [address] , [place] [facility] 4 15:57:11 Rhinitis 99710940 Active 2023 Irwin Padilla MD [address], [address], [place], [address] , [facility] 4 16:49:00 Abnormal gait due to muscle weakness 828496143 Active 2023 Kusum Becker NP [address], [address], [place], [address] , [place] [facility] 4 16:35:15 Weakness present 619951066 Active 2023 Janeth Young MA [facility], [place] [facility] 4 16:59:09 Vitamin D deficienc y 49556153 Active 2023 Irwin Padilla MD [address], [place], [address] , [facility] 4 16:06:27 Carotid artery stenosis 43278641 Active 2023 Irwin Padilla MD [address], [place], [address] , [facility] 4 16:10:26 Nausea 700672611 Active 2023 Kusum Becker NP [address], [place], [address] , [facility] 4 12:55:38 Community acquired pneumonia 807912731 Active 2024 Irwin Padilla MD [address], [place], [address] , [place] [facility] 5 15:08:17 Hypoxia 796979791 Active 2024 Irwin Padilla MD [address] [facility], [place], [address] , [employer] 15:08:39 Rose villaseñor 970963323 Active 2024 Irwin Padilla MD [address] [facility], [place], [address] , [employer] 15:14:57 Notes:Some problems listed i n Document: #[id number] could not be added to this patient's chart. Please review this document and add these problems to the patient's chart manually as needed. Problem Notes None recorded. Procedures Surgical History Date Name Laterality Status Provider Name and Address Organization Details Recorded Time 03/12/20 25 Transitional_Care_ Management completed DELMER Ortiz [address] [facility] [facility] [address], [place], [address], [employer] 03/12/2025 14:54:16 10/30/19 25 Transitional_Care_ Management completed Irwin Padilla MD [address] [facility], [facility] [address], [place], [address], [employer] 10/29/2024 15:09:19 03/12/20 24 Medicare Wellness CPT Code, subsequent completed Leslie Fontana RN [facility] 03/13/2024 08:56:23 05/19/20 23 Transitional_Care_ Management completed HOLLIS Liu [employer] 05/19/2023 14:05:01 04/30/20 15 [facility]otripsy completed [facility] 12:46:27 cholecystectomy completed Not Available [facility] 12:46:27 other completed Not Available [facility] 07/28/2022 12:46:27 Excisions - Specify completed Not Available [facility] 07/28/2022 12:46:27 Genitourinary Surgery completed Not Available [facility] 07/28/2022 12:46:27 other completed Not Available [facility] 07[facility]28/[facility]22 12:46:27 Imaging Results None recorded. Procedure [...] weight Body temperature Heart rate Oxygen saturation Systolic And Diastolic Provider Name and Address Organization Details Last Updated DateTime 5 176.53 cm 24.7 kg/m2 12043.7 g 97.8 [degF] 77 /min 95 % 130/68 mm[Hg] Katie Wiseman [facility] 5 16:09:24 Date Recorded Body height Body mass index (BMI) Body weight Heart rate Oxygen saturation Body temperature Systolic And Diastolic Provider Name and Address Organization Details Last Updated DateTime 5 176.53 cm 23.3 kg/m2 97838.7 8 g 59 /min 94 % 97.4 [degF] 116/64 mm[Hg] Ofelia mckeon Adia [facility] 5 14:37:42 Date Recorded Body height Body mass index (BMI) Body weight Body temperature Heart rate Oxygen saturation Systolic And Diastolic Provider Name and Address Organization Details Last Updated DateTime 4 176.53 cm 25.3 kg/m2 16954.0 7 g 97.4 [degF] 70 /min 97 % 124/60 mm[Hg] Ofelia mckeon Adia [facility] 4 15:41:11 Date Recorded Body height Body mass index (BMI) Body weight Body temperature Heart rate Oxygen saturation Systolic And Diastolic Provider Name and Address Organization Details Last Updated DateTime 5 176.53 cm 25.2 kg/m2 64864.4 8 g 96.6 [degF] 67 /min 96 % 110/76 mm[Hg] Katie tapia [facility] 5 14:13:46 Date Recorded Body height Body temperature Heart rate Systolic And Diastolic Provider Name and Address Organization Details Last Updated DateTime 04/24/2025 176.53 cm 97.4 [degF] 58 /min 110/60 mm[Hg] Ofelia croft Adia [facility] 04/24/2025 16:32:40 Social History Question Answer Notes LastModified by Organization Details LastModified Time Tobacco Smoking Status Former Smoker Leslie Fontana RN [facility], [facility] 03/12/2024 16:23:55 Do You Have An Advance Directive? No Not On Hand Paperwork Provided 03/12/2024 [email or web address] Information not available 03/12/2024 Are You Blind Or Do You Have Difficulty Seeing? Yes [email or web address] Information not available 03/12/2024 Is Blood Transfusion Acceptable In An Emergency? Yes [email or web address] Information not available 03/12/2024 What Is Your Level Of Caffeine Consumption? Occasional [email or web address] [id number] Information not available 07/28/2022 How Much Tobacco Do You Chew? None MIGRATION.0301 [id number] Information not available 07/28/2022 In The 14 Days Before Symptom Onset, Have You Had Close Contact With A Laboratory-conf ngoc ALTMAN-19 While That Case Was Ill? 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 REGULAR MIGRATION.0301 [id number] Information not available 07/28/2022 Which Illicit Or Recreational Drugs Have You Used? None MIGRATION.0301 [id number] Information not available 07/28/2022 What Is The Highest Grade Or Level Of School You Have Completed Or The Highest Degree You Have Received? [id number] [email or web address] Information not available 03/12/2024 How Many Days Of Moderate To Strenuous Exercise, Like A Brisk Walk, Did You Do In The Last 7 Days? 0 [email or web address] Information not available 03/12/2024 What Is The Fluoride Status Of Your Home? Fluoridated [email or web address] Information not available 03/12/2024 Do You Use Insect Repellent Routinely? No [email or web address] Information not available 03/12/2024 Where Do You Live? [facility] [email or web address] Information not available 03/12/2024 Presence Of Domestic Violence No [email or web address] Information not available 03/13/2024 Are You Able To Care For Yourself? No [email or web address] Information not available 03/13/2024 Are You Blind Or Do Yo Have Difficulty Seeing? Yes [email or web address] Information not available 03/13/2024 Are You Deaf Or Do You Have Serious Difficulty Hearing? No [email or web address] Information not available 03/13/2024 General Stress Level? Moderate [email or web address] Information not available 03/13/2024 Live Alone Of With Others? With Others [email or web address] Information not available 03/13/2024 Do You Have A Medical Power Of Pick Up Worker? Yes [email or web address] Information not available 03/12/2024 What Was The Date Of Your Most Recent Tobacco Screening? 03/12/2024 [email or web address] Information not available 03/12/2024 How Many Children Do You Have? 2 [email or web address] Information not available 03/12/2024 Do You Have Any Pets? No [email or web address] Information not available 03/12/2024 Do You Use Protection During Sex? No [email or web address] Information not available 03/12/2024 What Is Your Relationship Status? [email or web address] Information not available 03/12/2024 Do You Use Your Seat Belt Or Car Seat Routinely? No [email or web address] Information not available 03/12/2024 Are You Sexually Active? Yes [email or web address] Information not available 03/12/2024 Do You Have Smoke And Carbon Monoxide Detectors In Your Home? Yes [email or web address] Information not available 03/12/2024 Are You Passively Exposed To Smoke? No [email or web address] Information not available 03/12/2024 Are There Any Smokers In Your House? No [email or web address] Information not available 03/12/2024 How Much Tobacco Do You Smoke? 1 PPD [email or web address] Information not available 03/12/2024 What Types Of Sporting Activities Do You Participate In? None [email or web address] Information not available 03/12/2024 Do You Use Sunscreen Routinely? No [email or web address] Information not available 03/12/2024 Have You Recently Traveled Abroad? No [email or web address] Information not available 03/12/2024 Do You Have Difficulty Walking Or Climbing Stairs? Yes [email or web address] Information not available 03/12/2024 Do You Have Any Dietary Restrictions? No [email or web address] Information not available 03/12/2024 Sex: Male Functional Status Question Answer Note LastModified by Organizat ion Details LastModified Time Do you use any illicit or recreational drugs? No [email or web address] Information not available 03/12/2024 What is your level of alcohol consumption? None [email or web address] Information not available 03/12/2024 Are you currently employed? No [email or web address] Information not available 03/12/2024 Do you have transportation difficulties? No [email or web address] Information not available 03/12/2024 Are you able to walk independently without assistance or assistive devices? YESASSIST [email or web address] Information not available 03/12/2024 Do you have difficulty doing errands alone? No [email or web address] Information not available 03/12/2024 Are you able to care for yourself independently? 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 No [email or web address] Information not available 03/12/2024 What is your exercise level? None [id number] 026 Information not available 07/28/2022 Mental Status Question Answer Note LastModified by Organizat ion Details LastModified Time Do you feel stressed (tense, restless, nervous, or anxious, or unable to sleep at night)? [id number] [email or web address] Information not available 03/12/2024 Do you have difficulty concentrating, remembering or making decisions? No [email or web address] Information no t available 03/12/2024 Family History Nothing Reported Notes:ADOPTED Medical History Condition Response HEARTBURN / REFLUX Y HIGH CHOLESTEROL / HYPERLIPIDEMIA Y HYPERTENSION Y Immunizations Vaccine Type Date Status Note Provider Nam e and Address Organization Details Recorded Time Pneumococcal conjugate PCV21, polysaccharide QCB400 conjugate, PF [address] - [facility] 03/12/2025 14:40:46 COVID-19 vaccine, vector-nr, rS-Ad26, PF, 0.5 mL 1 completed Not Available [facility] 04/24/2025 16:30:19 Influenza, split virus, trivalent, preservative 3 completed Not Available [facility] 07/28/2022 12:52:30 Pneumococcal conjugate PCV 13 6 completed Not Available [facility] 07/28/2022 12:52:30 Influenza, split virus, trivalent, PF 4 completed Not Available [facility] 07/28/2022 12:52:30 Past Encounters Encounter ID Performer Location Encounter Start Date Encounter Closed Date Diagnosis/Indication Diagnosis SNOMED-CT Code Diagnosis ICD10 Code Diagnosis IMO Codes Diagnosis Note [id number] Irwin Padilla MD Sergio[facility] Internal [address] [place] [address] 10/23/2020 00:00:00 10/23/2020 17:56:07 [id number] MD MONSERRAT [facility] [address] [address] 11/04/2020 00:00:00 11/04/2020 15:34:58 [id number] MD MONSERRAT [facility] [address] [address] 11/12/2020 00:00:00 11/12/2020 16:03:30 [id number] Irwin Padilla MD S_[facility] Internal Med [address] [place] [address] [place] [address] 03/09/2021 00:00:00 03/09/2021 15:24:21 [id number] Irwin Padilla MD S_[facility] Internal Med [address] [facility] [place] [address] 07/15/2021 00:00:00 07/15/2021 17:45:03 [id number] Irwin Padilla MD S_[facility] Internal Med [address] [place] [facility] [place] [address] 10/12/2021 00:00:00 10/12/2021 15:41:38 [id number] Irwin Padilla MD S_[facility] Internal Med [address] [facility] [place] [address] 03/22/2022 00:00:00 03/22/2022 16:16:00 [id number] Irwin Padilla MD S[facility] Internal Med [address] [facility] [place] [address] 07/12/2022 00:00:00 07/12/2022 15:37:51 [id number] Irwin Padilla MD S_[facility] Internal Med [address] [facility] [place] [address] 02/14/2023 15:12:54 02/14/2023 15:46:31 Jaw pain 771850877 R68.84 exam nl, sever pain on the jaw on coughing Coronary arteriosclerosis 11877722 I25.10 [id number] Irwin Padilla MD S_[facility] Internal Med [facility] [address] [facility] [place] [address] 02/28/2023 15:04:02 02/28/2023 16:05:18 Essential hypertension 31105386 I10 under control Insomnia 472328859 G47.0 0 better with meds Hyperlipidemia 92713220 E78.5 labs good 04/20 Gastroesop hageal reflux disease 541513780 K21.9 better Depressive disorder 3548 9007 F32.A under control Coronary atherosclerosis 601935329 I25.10 no symptoms, Cobalamin deficiency 190 432246 E53.8 on oral Chronic ob structive pulmonary disease 18931824 J44.9 not under control, change to Breztri Benign pro static hyperplasia 199141204 N40.0 stable Anemia 540665713 D64.9 on iron pills , no more GI bleeding Multiple n odules of lung 721820393 R91.8 CT scan 04/20 Osteoarthritis 806628399 M19.90 OTC Sleep apnea 34600123 G47 .30 no CPAP Essential tremor 7964905 09 G25.0 not getting worse Adult heal th examination 653080908 Z00.00 Colonoscop y- 2PSA - 07/31/2018 , no more neededPneu movax- Has had bothFLU- DeclinedCO VID- Has had 1 vacc- J&J Interstiti al lung disease 553374445 J84.9 watch Long-term drug therapy 460030665 Z79.612 [id number] Irwin Padilla MD [facility] Internal Med [facility] [address] [facility] [place] [address] 05/19/2023 14:00:44 05/19/2023 14:48:11 Transition of care 9883503852 105 Z75.8 Gastrointe stinal hemorrhage 78689127 K92.2 has stopped, diet discussed Anemia 797298967 D64.9 on iron pills bid [id number] Irwin Padilla MD S_[facility] Internal Med [facility] [address] [facility] [place] [address] 10/03/2023 15:12:28 10/03/2023 16:02:51 Essential hypertension 98295044 I10 under control Insomnia 554513885 G47.0 0 better with meds Hyperlipidemia 50964995 E78.5 under control Gastroesop hageal reflux disease 700807377 K21.9 better Depressive disorder 3548 9007 F32.A under control Coronary atherosclerosis 826457036 I25.10 no symptoms, Cobalamin deficiency 190 843742 E53.8 to take oral Chronic ob structive pulmonary disease 95532703 J44.9 under control Benign pro static hyperplasia 078432013 N40.0 stable Anemia 429705445 D64.9 on iron pills , no more GI bleeding Multiple n odules of lung 252562109 R91.8 CT scan 04/20 Osteoarthritis 620993581 M19.90 OTC Sleep apnea 71480860 G47 .30 no CPAP Essential tremor 5108498 09 G25.0 not getting worse Adult heal th examination 868260722 Z00.00 Colonoscop y- 2PSA - 07/31/2018 , no more neededPneu movax- Has had bothFLU- DeclinedCO VID- Has had 1 vacc- J&J Interstiti al lung disease 150182893 J84.9 watch Kidney disease 48643293 N08 advise dto drink more water Impacted c erumen of bilateral ears 3199867858 796604 H61.23 needs cleaning Unsteady when walking 22 451184 R26.89 wheel chair should help [id number] Irwin Padilla MD [facility] Internal [facility] [address] [facility] [place] [address] 10/10/2023 15:53:22 10/10/2023 16:51:04 Rhinitis 45232158 J00 otc Impacted c erumen of bilateral ears 0125860652 423197 H61.23 cleaning done with water , TM and canal clear [id number] Irwin Padilla MD [facility] Internal [address] [place] [facility] [place] [address] 10/28/2023 14:22:41 10/28/2023 14:56:52 Abnormal gait due to muscle weakness 396077766 M62.81 I performed a specialty face to [...] lower leg edema and facilitate transfers. Neuropathy 234895690 G62 .9 [id number] Irwin Padilla MD [facility] Internal Med [address] [facility] [place] [address] 03/12/2024 15:28:15 03/12/2024 16:40:49 Essential hypertension 78809490 I10 under control Insomnia 523647756 G47.0 0 better with melatonin Hyperlipidemia 57327793 E78.5 under control Gastroesop hageal reflux disease 073711293 K21.9 ^ the dose Depressive disorder 3548 9007 F32.A under control Coronary atherosclerosis 262982097 I25.10 no symptoms, Cobalamin deficiency 190 599323 E53.8 on oral Chronic ob structive pulmonary disease 26464654 J44.9 under control Benign pro static hyperplasia 425805253 N40.0 stable Anemia 405664958 D64.9 on iron pills , no more GI bleeding Multiple n odules of lung 388556851 R91.8 CT scan 04/20 Osteoarthritis 113424947 M19.90 OTC Sleep apnea 60109014 G47 .30 no CPAP Essential tremor 2665006 09 G25.0 mild Adult heal th examination 266656733 Z00.00 Colonoscop y- 2PSA - 07/31/2018 , no more neededPneu movax- Has had bothFLU- Declined- OVID- Has had 1 vacc- J&J Interstiti al lung disease 790831328 J84.9 no symptoms Kidney disease 40356674 N08 advised to drink more water, check labs Unsteady when walking 22 529252 R26.89 taking precaution s Vitamin D deficiency 347 69256 E55.9 Carotid ar medardo stenosis 28402340 I65.29 on asa Screening for disorder 843815370 Z13.9 [id number] Irwin Padlila MD [facility] Internal Med [address] [facility] [place] [address] 07/12/2024 15:55:10 07/12/2024 17:11:38 Essential hypertension 52117864 I10 under control Hyperlipidemia 87616286 E78.5 under control Gastroesop hageal reflux disease 864052681 K21.9 better Depressive disorder 3548 9007 F32.A under control with meds Coronary atherosclerosis 152218307 I25.10 no symptoms, Cobalamin deficiency 190 686907 E53.8 on oral, on hold Chronic ob structive pulmonary disease 38042841 J44.9 under control Benign pro static hyperplasia 535232402 N40.0 stable Anemia 534403278 D64.9 was on iron pills , Multiple n odules of lung 365224037 R91.8 CT scan 04/20 Osteoarthritis 142270144 M19.90 OTC Sleep apnea 15382471 G47 .30 no CPAP Essential tremor 0705640 09 G25.0 mild Adult heal th examination 899065624 Z00.00 Colonoscop y- 2PSA - 07/31/2018 , no more neededPneu movax- Has had bothFLU- Declined- 4COVID- Has had 1 vacc- J&J Interstiti al lung disease 161679872 J84.9 no symptoms Kidney disease 35499607 N08 advised to drink more water, Unsteady when walking 22 576062 R26.89 taking precaution s Vitamin D deficiency 347 97497 E55.9 otc Carotid ar medardo stenosis 21019649 I65.29 on asa [id number] Irwin Padilla MD [facility] Internal Med [address] [facility] [place] [address] 10/29/2024 14:32:19 10/29/2024 15:27:17 Community acquired pneumonia 393472541 J15.9 660396 stay active, keep taking mucinex Hypoxia 017879282 R09.02 70609 o2 prn Transition of care 86009 69158 105 Z75.8 Tinea hawas 062579660 B 35.6 28973 [id number] Irwin Padilla MD [facility] Internal Med [facility] [address] [facility] [place] [address] 03/12/2025 14:01:54 03/12/2025 15:01:25 Transition of care 0935745093 105 Z75.8 all medication s reviewed, paperwork also discussed. History of urinary tract infection 9141285786 107 Z87.252 9726646 completed oral abx, last day was 03/11 Active immunization 3387 9002 Z23 2267201 [id number] Irwin Padilla MD [facility] Internal Med [address] [facility] [place] [address] 04/24/2025 16:28:45 04/24/2025 16:58:54 Hyperlipidemia 29174291 E78.5 under control Essential hypertension 09610626 I10 under control Neuropathy 259895377 G62 .9 Gastroesop hageal reflux disease 992657294 K21.9 better Depressive disorder 3548 9007 F32.A under control with meds Coronary atherosclerosis 352323688 I25.10 no symptoms, Cobalamin deficiency 190 231124 E53.8 on oral, on hold Chronic ob structive pulmonary disease 23511645 J44.9 under control Benign pro static hyperplasia 760135916 N40.0 stable Anemia 796552093 D64.9 on iron pills , Multiple n odules of lung 051735014 R91.8 CT scan 04/20 Osteoarthritis 686505662 M19.90 OTC Sleep apnea 33229565 G47 .30 no CPAP Essential tremor 6652166 09 G25.0 mild Adult heal th examination 981592018 Z00.00 Colonoscop y- 2PSA - 07/31/2018 , no more neededPneu movax- Has had bothFLU- Declined- 4COVID- Has had 1 vacc- J&J Interstiti al lung disease 330823629 J84.9 no symptoms Kidney disease 17502208 N08 advised to drink more water, Unsteady when walking 22 586090 R26.89 taking precaution s Vitamin D deficiency 347 60493 E55.9 otc Carotid ar medardo stenosis 31348270 I65.29 on asa Rhinitis 20086574 J00 otc Health Concerns Section Related Observation LastModified by Organization Detai ls LastModified Time None Recorded Concern Status LastModified by Organization Details LastModified Time None Recorded Advance Directives Directive N: not on hand paperwork pro vided 03/12/2024 Payers Insurance Date Sequence Insurance Name Policy Number Policy Trimble Covered Member ID Trimble Member ID Guarantor Name 04/30/2025 1 [facility] (MEDICARE REPLACEMENT/A DVANTAGE - PPO) [id number] Rogerio Vivar [id number] Rogerio Vivar 03/12/2025 1 AET [id number] Rogerio Vivar [id number] Rogerio Vivar Notes Date Note Type Note Provider Name and Address Organization Details Recorded Time 03/12/2024 text/html Pt here today for his [...] Padilla MD [address], [place], [address], [facility] [employer] [facility] 03/13/2024 14:27:08 07/12/2024 text/html Pt here today for his annual check-up.In april 2024 and June 02 2024 he went to [facility] for pneumonia he was admitted. (waiting on record from [facility])On 06/20/24 went to the emergency for UTI and gave him antibioticon 06/28/24 he went to [facility] for he felt like he had bowel [...] Padilla MD [address], [place], [address], [employer] [facility] 07/12/2024 17:25:56 10/29/2024 text/html ROS as noted in the HPI Pt is here today for a hospital follow upRECORD REVIEWED AND DISCUSSEDHe was admitted to [facility] on 10/13 and discharged on 10/18.Was diagnosed with pneumonia. Still Has SOB. O2 today is 94%Has lost 10 lbs, Appetite could be better, BUT IMPROVINGno more fever, no cptaking mucinex for coughHas a rash in his groin area due to having a depend on while in the hospital. Irwin Padilla MD [address] [facility], [facility] [address], [place], [address], [employer] 10/29/2024 15:17:46 03/12/2025 text/html Patient is 89y/o male who is here for hosptial follow up to [facility] on 03/02 for UTI and had elevated BP. During stay, patient complained of back pain and lower abdominal pain. Patient testing did show normal labs but abnormal UA. He did report he had darker urine and increasing fatigue. Patient was treated with IV antibiotic's, fluids and zofran/vicodin for abdominal/back pain. After treatment of IV antibiotics, he was switched to oral abx for UTI. BP did result to normal after one day in hospital. Patient was discharged to home on 03/04. Jefferson Mittal [employer] Agent-last day was 03/11 DELMER Ortiz [address] [facility], [facility] [address], [place], [address], [facility] 03/12/2025 14:57:10 04/24/2025 text/html Pt here today for his [...] Bupropion 150 mg bid CAD- s/p stents 2011, on asa, seeing cardiology (had a disagreement [...] not getting worse Irwin Padilla MD [address] [facility], [address] [address], [place], [address], [place] [facility] [employer] 04/24/2025 17:02:18
--- OUTSIDE RECORDS SUMMARY | 2025-05-26 17:44 | XMS_ITS | Continuity of Care Document ---
Author Organization [place] [facility] [employer] [facility] Internal Med [facility] Address [address] [facility] [place] [address] Assessment Encounter Date Assessment Date Assessment LastModified by Organization Details LastModified Time 03/12/2025 03/12/2025 I have reconciled the patient's medications post their discharge from inpatient facility. [email or web address] Not available 03/11/2025 13:42:11 Plan of Treatment Reminders Order Date Submit Date Provider Last Modified By Organization Details Last Modified Time Details Appointments None record ed. Lab None record ed. Referral None record ed. Procedures None record ed. Surgeries None record ed. Imaging None record ed. Medication Orders None record ed. Patient TargetsNo targets recorded. Patient Instructions Encounter Date Encounter Id Patient Instructions Last Modified By Organization Details Last Modified Time 03/12/2025 [id number] Thank you for your visit to our office today. We would [...] at home, please call us to discuss. [email or web address] Not available 03/11/2025 13:42:11 Homebound Status : Does not meet homebound status Required Home Health Services: nonec, declined Durable Medical Equipment needed: none Billing Guidelines CPT code 03440- Transitional Care Management services with moderate medical decision complexity (xkds-df-zaua visit within 14 days of discharge). CPT code 25017- Transitional Care Management services with high medical decision complexity (npet-mc-yewd visit within 7 days of discharge). Not available 03/12/2025 14:53:36 Reason for Referral None Reported. Problems Name Problem SNOMED Code Status Onset Date Resolution Date Notes Provider Name and Address Organization Details Recorded Time Hammer toe 777488509 Completed Not Available [facility] 3 12:48:57 Chronic obstructi ve pulmonary disease 33805579 Active Not Available [facility] 3 12:48:57 Acquired trigger finger 4813215 Completed Not Available [facility] 3 12:48:57 Backache 551085264 Completed Not Available [facility] 3 12:48:57 Cobalamin deficienc y 825741311 Active Not Available [facility] 3 12:48:57 Insomnia 350465212 Active Not Available [facility] 3 12:48:57 Gastroeso phageal reflux disease 418081581 Active Not Available [facility] 3 12:48:58 Glaucoma 08666406 Active Not Available [facility] 3 12:48:58 Headache 21460314 Completed Not Available [facility] 3 12:48:58 Ankle edema 54491992 Completed Not Available [facility] 3 12:48:58 Benign prostatic hyperplas ia 317159062 Active Not Available [facility] 3 12:48:58 Anemia 273287717 Active Not Available [facility] 3 12:48:58 Malaise and fatigue 803973422 Completed Not Available [facility] 3 12:48:58 Ureteric stone 31509975 Completed Not Available [facility] 3 12:48:58 Bronchiti s 05910404 Completed Not Available [facility] 3 12:48:58 Depressiv e disorder 72166246 Active Not Available [facility] 3 12:48:58 Sinusitis 38476536 Completed Not Available [facility] 3 12:48:58 Osteoarth ritis 150037271 Active Not Available [facility] 3 12:48:59 Insect bite reaction 662744330 Completed Not Available [facility] 3 12:48:59 Pain of shoulder region 45039487 Completed Not Available [facility] 3 12:48:59 Anxiety 68504819 Active Not Available [facility] 3 12:48:59 Cough 58208926 Completed Not Available [facility] 3 12:48:59 Hyperlipi demia 25784846 Active Not Available [facility] 3 12:49:00 Sleep apnea 23138071 Active Not Available [facility] 3 12:49:00 Perniciou s anemia 45008503 Active Not Available [facility] 3 12:49:00 Pain in limb 50503798 Completed Not Available [facility] 3 12:49:00 Disorder of skin 35654131 Completed Not Available [facility] 3 12:49:00 Kidney stone 28644914 Active Not Available [facility] 3 12:49:01 Coronary atheroscl erosis 990046807 Active 2010 s/p stent Not Available [facility] 3 12:48:59 Prostate specific antigen outside reference range 262997034 Active 2018 Not Available [facility] 3 12:48:57 Solitary nodule of lung 087676504 Active 2020 Not Available [facility] 3 12:48:59 Coronary arteriosc lerosis 76705207 Active 2020 Not Available [facility] 3 12:48:59 Multiple nodules of lung 134979287 Active 2021 Not Available [facility] 3 12:48:59 COVID-19 493907363 Completed 202101/19/2022 Not Available [facility] 3 12:49:00 Abdominal pain 79605543 Completed 202107/09/2022 Not Available [facility] 3 12:48:57 Impacted cerumen in left ear 25463976330 95962 Active 2021 Not Available [facility] 3 12:48:57 Neuropath y 843571460 Active 2021 Not Available [facility] 3 12:48:58 Essential hypertens ion 44782512 Active 2022 DELMER Ortiz [address], [place], [address] , [email or web address] [facility] 5 14:02:41 Essential tremor 663258280 Active 2022 Not Available [facility] 3 12:49:00 Jaw pain 189855270 Active 2022 Irwin Padilla MD [address], [place], [address] , [employer] [facility] [employer] 3 15:44:36 Interstit ial lung disease 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 Active 2022 Irwin Padilla MD [address], [place], [address] , [email or web address] [facility] [employer] 3 15:59:35 Gastroint estinal hemorrhag e 96858437 Active 2022 Irwin Padilla MD [address], [address], [place], [address] , [employer] [facility] 3 14:27:05 Kidney disease 17734374 Active 2023 Irwin Padilla MD [address], [place], [address] , [email or web address] [facility] 4 15:56:39 Impacted cerumen of bilateral ears 89203463235 84530 Active 2023 Irwin Padilla MD [address], [place], [address] , [email or web address] [facility] 4 15:57:01 Unsteady when walking 47196544 Active 2023 Irwin Padilla MD [address], [place], [address] , [email or web address] [facility] 4 15:57:11 Rhinitis 51601934 Active 2023 Irwin Padilla MD [address], [place], [address] , [place] [facility] 4 16:49:00 Abnormal gait due to muscle weakness 402493273 Active 2023 Kusum Becker NP [address], [place], [address] , [place] [facility] 4 16:35:15 Weakness present 123412826 Active 2023 Janeth Young MA null, [place] [facility] 16:59:09 Vitamin D deficienc y 59237678 Active 2023 Irwin Padilla MD [address], [place], [address] , [place] [facility] 4 16:06:27 Carotid artery stenosis 75907640 Active 2023 Irwin Padilla MD [address], [place], [address] , [place] [facility] 4 16:10:26 Nausea 149274501 Active 2023 Kusum Becker NP [address], [place], [address] , [place] [facility] 4 12:55:38 Community acquired pneumonia 377336475 Active 2024 Irwin Padilla MD [address], [place], [address] , [place] [facility] 5 15:08:17 Hypoxia 603513275 Active 2024 Irwin Padilla MD [address], [place], [address] , [place] [facility] 5 15:08:39 Tinea cruris 584606313 Active 2024 Irwin Padilla MD [address], [place], [address] , [employer] 15:14:57 Notes:Some problems listed i n Document: #[id number] could not be added to this patient's chart. Please review this document and add these problems to the patient's chart manually as needed. Problem Notes None recorded. Procedures Surgical History Date Name Laterality Status Provider Name and Address Organization Details Recorded Time 03/12/20 25 Transitional_Care_ Management completed DELMER Ortiz [address], [facility] [address], [place], [address], [employer] 03/12/2025 14:54:16 10/30/19 25 Transitional_Care_ Management completed Irwin Padilla MD [address], [facility] [address], [place], [address], [employer] 10/29/2024 15:09:19 03/12/20 24 Medicare Wellness CPT Code, subsequent completed Leslie Fontana RN [employer] 03/13/2024 08:56:23 05/19/20 23 Transitional_Care_ Management completed HOLLIS Liu [employer] 05/19/2023 14:05:01 04/30/20 15 lithotripsy completed Not Available [facility] 07/28/2022 12:46:27 cholecystectomy completed Not Available [facility] 07/28/2022 12:46:27 other [facility] 12:46:27 Excisions - Specify completed Not Available Proenza Schouer 07/28/2022 12:46:27 Genitourinary Surgery completed Not Available Proenza Schouer 07/28/2022 12:46:27 other completed Not Available Pro[facility] Sch[facility]er 07/28/2022 12:46:27 Imaging Results None recorded. Procedure [...] Updated DateTime 5 176.53 cm 25.2 kg/m2 78056.4 8 g 96.6 [degF] 67 /min 96 % 110/76 mm[Hg] Katie tapia [employer] 14:13:46 Social History Question Answer Notes LastModified by Organization Details LastModified Time Tobacco Smoking Status Former Smoker Leslie Fontana RN null, [employer] 03/12/2024 16:23:55 Do You Have An Advance Directive? No Not On Hand Paperwork Provided 03/12/2024 [email or web address] Information not available 03/12/2024 Are You Blind Or Do You Have Difficulty Seeing? Yes [email or web address] Information not available 03/12/2024 Is Blood Transfusion Acceptable In An Emergency? Yes [email or web address] Information not available 03/12/2024 What Is Your Level Of Caffeine Consumption? Occasional [id number] Information not available 07/28/2022 How Much Tobacco Do You Chew? None MIGRATION.0301 [id number] Information not available 07/28/2022 In The 14 Days Before Symptom Onset, Have You Had Close Contact With A Laboratory-conf ngoc [facility] While That Case Was Ill? 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 REGULAR MIGRATION.0301 [id number] Information not available 07/28/2022 Which Illicit Or Recreational Drugs Have You Used? None MIGRATION.0301 [id number] Information not available 07/28/2022 What Is The Highest Grade Or Level Of School You Have Completed Or The Highest Degree You Have Received? [id number] [email or web address] Information not available 03/12/2024 How Many Days Of Moderate To Strenuous Exercise, Like A Brisk Walk, Did You Do In The Last 7 Days? 0 [email or web address] Information not available 03/12/2024 What Is The Fluoride Status Of Your Home? Fluoridated [email or web address] Information not available 03/12/2024 Do You Use Insect Repellent Routinely? No [email or web address] Information not available 03/12/2024 Where Do You Live? [facility] [email or web address] Information not available 03/12/2024 Presence Of Domestic Violence No [email or web address] Information not available 03/13/2024 Are You Able To Care For Yourself? No [email or web address] Information not available 03/13/2024 Are You Blind Or Do Yo Have Difficulty Seeing? Yes [email or web address] Information not available 03/13/2024 Are You Deaf Or Do You Have Serious Difficulty Hearing? No [email or web address] Information not available 03/13/2024 General Stress Level? Moderate [email or web address] Information not available 03/13/2024 Live Alone Of With Others? With Others [email or web address] Information not available 03/13/2024 Do You Have A Medical Power Of Application Administrator? Yes [email or web address] Information not available 03/12/2024 What Was The Date Of Your Most Recent Tobacco Screening? 03/12/2024 [email or web address] Information not available 03/12/2024 How Many Children Do You Have? 2 [email or web address] Information not available 03/12/2024 Do You Have Any Pets? No [email or web address] Information not available 03/12/2024 Do You Use Protection During Sex? No [email or web address] Information not available 03/12/2024 What Is Your Relationship Status? [email or web address] Information not available 03/12/2024 Do You Use Your Seat Belt Or Car Seat Routinely? No [email or web address] Information not available 03/12/2024 Are You Sexually Active? Yes [email or web address] Information not available 03/12/2024 Do You Have Smoke And Carbon Monoxide Detectors In Your Home? Yes [email or web address] Information not available 03/12/2024 Are You Passively Exposed To Smoke? No [email or web address] Information not available 03/12/2024 Are There Any Smokers In Your House? No [email or web address] Information not available 03/12/2024 How Much Tobacco Do You Smoke? 1 PPD [email or web address] Information not available 03/12/2024 What Types Of Sporting Activities Do You Participate In? None [email or web address] Information not available 03/12/2024 Do You Use Sunscreen Routinely? No [email or web address] Information not available 03/12/2024 Have You Recently Traveled Abroad? No [email or web address] Information not available 03/12/2024 Do You Have Difficulty Walking Or Climbing Stairs? Yes [email or web address] Information not available 03/12/2024 Do You Have Any Dietary Restrictions? No [email or web address] Information not available 03/12/2024 Sex: Male Functional Status Question Answer Note LastModified by Organizat ion Details LastModified Time Do you use any illicit or recreational drugs? No [email or web address] Information not available 03/12/2024 What is your level of alcohol consumption? None [email or web address] Information not available 03/12/2024 Are you currently employed? No [email or web address] Information not available 03/12/2024 Do you have transportation difficulties? No [email or web address] Information not available 03/12/2024 Are you able to walk independently without assistance or assistive devices? YESASSIST [email or web address] Information not available 03/12/2024 Do you have difficulty doing errands alone? No [email or web address] Information not available 03/12/2024 Are you able to care for yourself independently? 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 No [email or web address] Information not available 03/12/2024 What is your exercise level? None MIGRATION.[id number] 026 Information not available 07/28/2022 Mental Status Question Answer Note LastModified by Organizat ion Details LastModified Time Do you feel stressed (tense, restless, nervous, or anxious, or unable to sleep at night)? [id number] [email or web address] Information not available 03/12/2024 Do you have difficulty concentrating, remembering or making decisions? No [email or web address] Information no t available 03/12/2024 Family History Nothing Reported Notes:ADOPTED Medical History Condition Response HEARTBURN / REFLUX Y HYPERTENSION Y HIGH CHOLESTEROL / HYPERLIPIDEMIA Y Immunizations Vaccine Type Date Status Note Provider Nam e and Address Organization Details Recorded Time Pneumococcal conjugate PCV21, polysaccharide RCX873 conjugate, PF 5 completed QASIM Huertas - [facility] [employer] 03/12/2025 14:40:46 COVID-19 vaccine, vector-nr, rS-Ad26, PF, 0.5 mL 1 completed Not Available [facility] 04/24/2025 16:30:19 Influenza, split virus, trivalent, preservative 3 completed Not Available [facility] 07/28/2022 12:52:30 Pneumococcal conjugate PCV 13 6 completed Not Available [facility] 07/28/2022 12:52:30 Influenza, split virus, trivalent, PF 4 completed Not Available [facility] 07/28/2022 12:52:30 Past Encounters Encounter ID Performer Location Encounter Start Date Encounter Closed Date Diagnosis/Indication Diagnosis SNOMED-CT Code Diagnosis ICD10 Code Diagnosis IMO Codes Diagnosis Note [id number] Irwin Padilla MD [facility] [address] [place] [address] 03/12/2025 14:01:54 03/12/2025 15:01:25 Transition of care 4572137390 105 Z75.8 all medication s reviewed, paperwork also discussed. History of urinary tract infection 8896996222 107 Z87.696 7570375 completed oral abx, last day was 03/11 Active immunization 3387 9002 Z23 3887360 Health Concerns Section Related Observation LastModified by Organization Detai ls LastModified Time None Recorded Concern Status LastModified by Organization Details LastModified Time None Recorded Payers Encounter Date Sequence Insurance Name Policy Number Policy Trimble Covered Member ID Trimble Member ID Guarantor Name 03/12/2025 1 [facility] (MEDICARE REPLACEMENT/A DVANTAGE - PPO) [id number] Rogerio Vivar [id number] Rogerio Vivar Notes Date Note Type Note Provider Name and Address Organization Details Recorded Time 03/12/2025 text/html Patient is 89y/o male who is here for hosptial [facility] on [facility]/02 for UTI and had elevated [...] discharged to home on 03/04. [employer] Present[employer]-last day was 03/11 DELMER Ortiz [address] [facility] [facility] [address], [place], [address], [place] [facility] 03/12/2025 14:57:10
--- OUTSIDE RECORDS SUMMARY | 2025-05-26 17:44 | XMS_ITS | Clinical Summary ---
Author Organization [facility] Address [address] [place] [address] Care Team Providers Care Slot Floorperson Name Role Phone Angelo Mccloud MD Primary Care Provider [phone] Allergies No known active allergies Medications budesonide-formo [...] (12/16/2020): Added automatically from request for surgery [id number] CAD (coronary artery disease) 09/22/2020 Overview (09/22/2020): Added automatically from request for surgery [id number] SOB (shortness of breath) 09/22/2020 Overview (09/22/2020): Added automatically from request for surgery [id number] Surgical History Surgery Date Site/Laterality Comments CARDIAC [...] on file Legal 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 Gender Identity Not on file Sexual Orientation [...] 03/25/2014, 2012 Medical Devices Implanted Type Area Trailer Assembler Device Identifier Shelf Expiration Date Model / Serial / Lot [employer] X [id number] Resolute Cale 3.5mm 2.1-2.7fr 26mm 140cm Rapid Exchange - [id number] Implanted:Qty: 1 on 09/29/2020 by Yaw Thacker MD at [facility] [employer] [id number] X / / Explanted Type Area Trailer Assembler Device Identifier Shelf Expiration Date Model / Serial / Lot [employer] 200225 Inlay [place] 7fr 28cm Pusher Fluoro Marker Atraumatic Insertion Latex Free - [id number] Implanted:Qty: 1 on 01/01/2021 by Martin Alvarado MD at [facility] Explanted:Qty: 1 on 01/16/2021 Left: [employer]re[employer] 06/26/2025 [id number] / / [id number] Insurance [facility] MEDICARE ADVANTAGE Advance Directives For more information, please contact: [phone] * Full Code (Latest Code Status on File) Date Activated Date Inactivated Comments 09/29/2020 10:32 AM 10/01/2020 6:10 PM Care Teams Slot Floorperson Relationship Specialty Start Date End Date Angelo Mccloud MD [address] [place] [address] PCP - General 10/01/20
--- OUTSIDE RECORDS SUMMARY | 2025-05-26 17:44 | XMS_ITS | Clinical Summary ---
Author Organization [facility] Address [facility] [place] [address] Care Team Providers Care Real Property Evaluator Name Role Phone Unavailable Primary Care Provider [...]
== END 2025-05-26 19:15 | disposition left against medical advice (07) ==
LOC: ANHED 17:42
PROVIDERS: PCP Internal Medicine
DX: Z53.21 Procedure and treatment not carried out due to patient leaving prior to being seen by health care provider (principal)
CPT/HCPCS: 99199